=== PATIENT | female | born 1930 | race Caucasian/White ===

== ENCOUNTER 2017-09-24 12:22 | Emergency (ER) | payer MEDICARE, BC ==
[2017-09-24] MEDS ORDERED: SODIUM CHLORIDE 0.9% 1,000 ML IV STA (12:29)
[2017-09-24 12:32] VITALS: TEMP 97.6
[2017-09-24 12:58] LABS: Basophils # (A) 0.1 k/uL (0-0.2); Basophils % (A) 1 %; Eosinophils # (A) 0.4 k/uL (0-0.7); Eosinophils % (A) 4 %; HCT 31.9 % (34.0-46.0); HGB 10.3 gm/dL (11.4-16.0); Lymphocytes # (A) 1.1 k/uL (1.0-4.8); Lymphocytes % (A) 12 %; MCH 29.1 pg (25.0-35.0); MCHC 32.3 g/dL (31.0-37.0); Mean Platelet Volume 6.9; Monocytes # (A) 0.5 k/uL (0-1.0); Monocytes % (A) 6 %; Neutrophils # (A) 6.8 k/uL (1.3-7.7); Neutrophils % (A) 76 %; Platelet Count 327 k/uL (150-450); RBC 3.54 m/uL (3.80-5.40); RDW 14.1 % (11.5-15.5)
[2017-09-24 13:02] LABS: Calcium 8.6 mg/dL (8.4-10.2); Total Bilirubin 0.3 mg/dL (0.2-1.3); Total Protein 5.7 g/dL (6.3-8.2)
--- NOTE | 2017-09-24 13:04 | XR ---
EXAMINATION TYPE: XR chest 2V DATE OF EXAM: 09/24/2017 COMPARISON: Prior chest x-ray 11/17/2015 HISTORY: Difficulty breathing, cough TECHNIQUE: Frontal and lateral views of the chest are obtained. FINDINGS: Prominent lung volumes are compatible with underlying COPD. There is been interval increas e in density in the right upper lobe. Apical pleural thickening is again noted. There is no evident p neumothorax or pleural effusion. There is a spinal curvature. Cardiac mediastinal silhouette, pulmona ry vascularity and ingrid are not significantly changed. Bone mineralization is reduced. There are vasc ular calcifications noted. IMPRESSION: There may been interval increase in upper lobe scarring, difficult to exclude superimpos ed pneumonia. Consider pulmonary consult.
--- NOTE | 2017-09-24 13:09 | XR ---
Right RIBS HISTORY: Right rib pain 4 views of the right ribs There is a fracture of the 10th rib anteriorly on the right. Pleural parenchymal changes noted and de scribed in chest x-ray same date. There is a spinal curvature. There is low bone mineralization. IMPRESSION: Nondisplaced rib fracture.
[2017-09-24 13:11] LABS: Prothrombin Time 9.7 sec (9.0-12.0)
[2017-09-24 13:16] LABS: Creatine Kinase 88 U/L (30-135)
[2017-09-24 13:25] LABS: D-Dimer 0.78 mg/L FEU (<0.60)
[2017-09-24 13:26] LABS: Partial Thromboplastin Time 21.9 sec (22.0-30.0)
[2017-09-24 13:28] LABS: Creatine Kinase MB 1.2 ng/mL (0.0-2.4); Troponin I <0.012 ng/mL (0.000-0.034)
[2017-09-24] MEDS ORDERED: CARVEDILOL 12.5 MG TAB PO STA (14:28)
--- NOTE | 2017-09-24 14:50 | ED ---
General Adult HPI - General Chief complaint: Upper Respiratory Infection Stated complaint: Congestion Time Seen by Provider: 09/24/17 12:24 Source: patient Mode of arrival: EMS Limitations: no limitations - History of Present Illness Initial comments: 86 years O female comes in with the shortness of breath, she she said she had the shortness of breath for the last 2 weeks she was seen in the ER she also fell about 2 weeks ago and she complained about the right-sided chest wall pain she was seen at this Point now she is quite concerned about shortness of breath and cough she denies any new medications or any changes in his old medications - Related Data Home Medications Medication Instructions Recorded Confirmed Carvedilol 25 mg PO BID 12/18/13 09/24/17 Ezetimibe/Simvastatin [Vytorin 1 tab PO HS 12/18/13 09/24/17 10-20 mg Tablet] Isosorbide Mononitrate [Imdur] 30 mg PO DAILY 12/18/13 09/24/17 LORazepam [Ativan] 1 mg PO BID 12/18/13 09/24/17 Losartan/Hydrochlorothiazide 1 tab PO DAILY 12/18/13 09/24/17 [Losartan-Hctz 100-25 mg Tab] Omeprazole 40 mg PO DAILY 12/18/13 09/24/17 Aspirin EC [Ecotrin Low Dose] 81 mg PO DAILY 11/17/15 09/24/17 Multivitamin/Iron/Folic Acid 1 tab PO DAILY 11/17/15 09/24/17 [Centrum Complete Multivit Tab] Tolterodine Tartrate [Detrol LA] 4 mg PO DAILY 11/17/15 09/24/17 cloNIDine HCL [Catapres] 0.1 mg PO BID 11/17/15 09/24/17 Previous Rx's Medication Instructions Recorded Albuterol Inhaler [Ventolin Hfa 2 puff INHALATION RT-Q6H PRN #1 09/24/17 Inhaler] inhaler Levofloxacin [Levaquin] 500 mg PO DAILY #5 tab 09/24/17 predniSONE 20 mg PO BID #5 tab 09/24/17 Allergies Allergy/AdvReac Type Severity Reaction Status Date / Time codeine Allergy Nausea & Verified 09/24/17 12:35 Vomiting meperidine HCl [From Demerol] Allergy Nausea & Verified 09/24/17 12:35 Vomiting Milk Containing Products Allergy Rash/Hives Verified 09/24/17 12:35 [Dairy] morphine Allergy Nausea & Verified 09/24/17 12:35 Vomiting Review of Systems ROS Statement: Those systems with pertinent positive or pertinent negative responses have been documented in the HPI. ROS Other: All systems not noted in ROS Statement are negative. Past Medical History Past Medical History: Chest Pain / Angina, CVA/TIA, GERD/Reflux, Hyperlipidemia , Hypertension, Myocardial Infarction ([place]), Syncope Additional Past Medical History / Comment(s): Past syncopal episodes, TIAs, UTIs , DJD spin, chronic back pain, arthritis hands, diverticular disease. Last Myocardial Infarction Date:: 11/16/2010 History of Any Multi-Drug Resistant Organisms: None Reported Past Surgical History: Adenoidectomy, Appendectomy, Back Surgery, Cholecystectomy, Heart Catheterization, Hysterectomy, Tonsillectomy Additional Past Surgical History / Comment(s): cardiac caths in 2010 and 2013, back fusion/discectomy, colonoscopy, bilateral cataract removal with lens implants, Past Anesthesia/Blood Transfusion Reactions: Postoperative Nausea & Vomiting ( PONV) Past Psychological History: Anxiety Smoking Status: Former smoker Past Alcohol Use History: None Reported Past Drug Use History: None Reported - Past Family History Father Additional Family Medical History / Comment(s): Father at the age of 57yrs with "heart problems". Mother Additional Family Medical History / Comment(s): Mother had an enlarged heart. She at the age of 79yrs. General Exam Limitations: no limitations Course Vital Signs 09/24/17 09/24/17 09/24/17 12:26 13:07 14:26 Temperature 97.6 F Pulse Rate 66 61 Respiratory 18 16 18 Rate Blood Pressure 177/77 186/122 O2 Sat by Pulse 97 97 Oximetry 09/24/17 09/24/17 09/24/17 15:04 15:24 16:28 Temperature Pulse Rate 59 L 62 78 Respiratory 16 16 16 Rate Blood Pressure 166/72 166/72 172/74 O2 Sat by Pulse [address] chest changes pending at this point disposition be done as soon as we have and CT chest angiogram At 1610 CT angiogram still pending him a disposition be done as soon as I get the CT angiogram report 5 this EKG report was available 1650, he confirms a bronchitis rules out pulmonary embolism patient be gone home on now according 500 mg once daily for next 5, prednisone 40 mg once daily for next 5 days and albuterol inhaler - Reevaluation(s) Reevaluation #1: EKG is normal sinus ventricular rate is 66 [place] interval is 184 QRS duration is 82 QT/QTc is 4/423 review of this EKG does not reveal any ST elevation or ST depression 09/24/17 16:58 Medical Decision Making - Lab Data Result diagrams: 09/24/17 12:43 09/24/17 12:43 Lab Results 09/24/17 09/24/17 09/24/17 Range/Units 12:43 12:43 12:43 WBC 9.0 (3.8-10.6) k/uL RBC 3.54 L (3.80-5.40) m/uL Hgb 10.3 L (11.4-16.0) gm/dL Hct 31.9 L (34.0-46.0) % MCV 90.0 (80.0-100.0) fL MCH 29.1 (25.0-35.0) pg MCHC 32.3 (31.0-37.0) g/dL RDW 14.1 (11.5-15.5) % Plt Count 327 (150-450) k/uL Neutrophils % 76 % Lymphocytes % 12 % Monocytes % 6 % Eosinophils % 4 % Basophils % 1 % Neutrophils # 6.8 (1.3-7.7) k/uL Lymphocytes # 1.1 (1.0-4.8) k/uL Monocytes # 0.5 (0-1.0) k/uL Eosinophils # 0.4 (0-0.7) k/uL Basophils # 0.1 (0-0.2) k/uL PT (9.0-12.0) sec INR (<1.2) APTT (22.0-30.0) sec D-Dimer (<0.60) mg/L FEU Sodium 138 (137-145) mmol/L Potassium 4.0 (3.5-5.1) mmol/L Chloride 101 (98-107) mmol/L Carbon Dioxide 30 (22-30) mmol/L Anion Gap 7 mmol/L BUN 15 (7-17) mg/dL Creatinine 0.74 (0.52-1.04) mg/dL Est GFR (CKD-EPI)AfAm 87 (>60 ml/min/1.73 sqM) Est GFR (CKD-EPI)NonAf 75 (>60 ml/min/1.73 sqM) Glucose 89 (74-99) mg/dL Calcium 8.6 (8.4-10.2) mg/dL Total Bilirubin 0.3 (0.2-1.3) mg/dL AST 32 (14-36) U/L ALT 30 (9-52) U/L Alkaline Phosphatase 79 (38-126) U/L Total Creatine Kinase 88 (30-135) U/L CK-MB (CK-2) 1.2 (0.0-2.4) ng/mL CK-MB (CK-2) Rel Index 1.4 Troponin I <0.012 (0.000-0.034) ng/mL NT-Pro-B Natriuret Pep pg/mL Total Protein 5.7 L (6.3-8.2) g/dL Albumin 3.0 L (3.5-5.0) g/dL 09/24/17 09/24/17 Range/Units 12:43 12:43 WBC (3.8-10.6) k/uL RBC (3.80-5.40) m/uL Hgb (11.4-16.0) gm/dL Hct (34.0-46.0) % MCV (80.0-100.0) fL MCH (25.0-35.0) pg MCHC (31.0-37.0) g/dL RDW (11.5-15.5) % Plt Count (150-450) k/uL Neutrophils % % Lymphocytes % % Monocytes % % Eosinophils % % Basophils % % Neutrophils # (1.3-7.7) k/uL Lymphocytes # (1.0-4.8) k/uL Monocytes # (0-1.0) k/uL Eosinophils # (0-0.7) k/uL Basophils # (0-0.2) k/uL PT 9.7 (9.0-12.0) sec INR 1.0 (<1.2) APTT 21.9 L (22.0-30.0) sec D-Dimer 0.78 H (<0.60) mg/L FEU Sodium (137-145) mmol/L Potassium (3.5-5.1) mmol/L Chloride (98-107) mmol/L Carbon Dioxide (22-30) mmol/L Anion Gap mmol/L BUN (7-17) mg/dL Creatinine (0.52-1.04) mg/dL Est GFR (CKD-EPI)AfAm (>60 ml/min/1.73 sqM) Est GFR (CKD-EPI)NonAf (>60 ml/min/1.73 sqM) Glucose (74-99) mg/dL Calcium (8.4-10.2) mg/dL Total Bilirubin (0.2-1.3) mg/dL AST (14-36) U/L ALT (9-52) U/L Alkaline Phosphatase (38-126) U/L Total Creatine Kinase (30-135) U/L CK-MB (CK-2) (0.0-2.4) ng/mL CK-MB (CK-2) Rel Index Troponin I (0.000-0.034) ng/mL NT-Pro-B Natriuret Pep 496 pg/mL Total Protein (6.3-8.2) g/dL Albumin (3.5-5.0) g/dL Disposition Clinical Impression: Dyspnea, Bronchitis Disposition: HOME SELF-CARE Condition: Good Instructions: Chronic Bronchitis (ED) Prescriptions: Albuterol Inhaler [Ventolin Hfa Inhaler] 2 puff INHALATION RT-Q6H PRN #1 inhaler PRN Reason: sob Levofloxacin [Levaquin] 500 mg PO DAILY #5 tab predniSONE 20 mg PO BID #5 tab Is patient prescribed a controlled substance at d/c from ED?: No Referrals: Uri Chaudhary MD [Primary Care Provider] - 1-2 days
--- NOTE | 2017-09-24 16:13 | CT ---
EXAMINATION TYPE: CT angio chest DATE OF EXAM: 09/24/2017 COMPARISON: Chest x-ray 09/24/2017 HISTORY: Patient complains of cough. CT DLP: 197.2 mGycm Automated exposure control for dose reduction was used. CONTRAST: CTA scan of the thorax is performed with IV Contrast, patient injected with 100 mL of Isovue 370, pul monary embolism protocol. MIP images are created and reviewed. 3D reconstructed images are created on an independent workstation and reviewed. FINDINGS: LUNGS: The lungs are grossly clear, there is no concerning parenchymal mass or nodule identified. T here is no pleural effusion or pneumothorax seen. The tracheobronchial tree is patent, there are ext ensive areas of bronchial wall thickening, mucus plugging, tree-in-bud appearance within portions of the upper lobes. AORTA: No additional significant abnormality is seen. MEDIASTINUM: There is satisfactory enhancement of the pulmonary artery and its branches, there is no CT evidence for pulmonary embolism. There are no greater than 1 cm hilar or mediastinal lymph nodes. There are dense coronary artery calcifications. No pericardial effusion is seen. OTHER: There is a scoliosis within the spine. IMPRESSION: CORRELATE FOR BRONCHITIS, THERE IS MUCUS PLUGGING WHICH IS EXTENSIVE, DIFFICULT TO EXCLUDE AN EARLY P NEUMONIA. NO EVIDENT PULMONARY EMBOLISM. CORONARY ARTERY DISEASE.
[2017-09-24 16:31] VITALS: PULSE 78
[2017-09-24] MEDS ORDERED: predniSONE 20 MG TAB PO STA (16:59)
[2017-09-24] MEDS ORDERED: LEVOFLOXACIN 500 MG TAB PO STA (16:59)
[2017-09-24 17:28] VITALS: BP 164/72; RESP 18
== END 2017-09-24 17:25 | disposition home or self-care (01) ==
LOC: EC 12:22
DX: J40 Bronchitis, not specified as acute or chronic (principal); K21.9 Gastro-esophageal reflux disease without esophagitis; I10 Essential (primary) hypertension; I25.2 Old myocardial infarction; F41.9 Anxiety disorder, unspecified; Z95.818 Presence of other cardiac implants and grafts; Z86.73 Personal history of transient ischemic attack (TIA), and cerebral infarction without residual deficits; Z87.891 Personal history of nicotine dependence; Z79.82 Long term (current) use of aspirin; Z79.899 Other long term (current) drug therapy; Z88.5 Allergy status to narcotic agent; Z91.011 Allergy to milk products
CPT/HCPCS: 99285; 36415; 93005; 85379; 83880; 80053; 82550; 82553; 84484; 85025; 85610; 85730; 71100; 71046; 71275; J7512; Q9967

== ENCOUNTER 2017-10-27 09:06 | Emergency (ER) | payer MEDICARE, BC ==
--- NOTE | 2017-10-27 10:00 | ED ---
General Adult HPI - General Chief complaint: Abdominal Pain Stated complaint: Sob/pain around to the back/copd Time Seen by Provider: 10/27/17 09:44 Source: patient, RN notes reviewed Mode of arrival: ambulatory Limitations: no limitations - History of Present Illness Initial comments: Patient 86-year-old female presenting to the emergency room today with a chief complaint of right-sided rib pain. Patient does admit that she's had increased cough congestion. She states she had a cough congestion several months ago seemed to get better and now has increased once again. She does admit that she having pain since radiating around to the right side of her back. She does not that it's worse with certain movements. Currently rates it a 05/31. Denies any other complaints. Admits that she had a fall back in end of August on the side. Patient denies any recent fever, chills, shortness of breath, nausea or vomiting , numbness or tingling, dysuria or hematuria, constipation or diarrhea, headaches or visual changes, or any other complaints. - Related Data Home Medications Medication Instructions Recorded Confirmed Carvedilol 25 mg PO BID 12/18/13 10/27/17 Isosorbide Mononitrate [Imdur] 30 mg PO DAILY 12/18/13 10/27/17 LORazepam [Ativan] 1 mg PO BID 12/18/13 10/27/17 Omeprazole 40 mg PO DAILY 12/18/13 10/27/17 Aspirin EC [Ecotrin Low Dose] 81 mg PO DAILY 11/17/15 10/27/17 Multivitamin/Iron/Folic Acid 1 tab PO DAILY 11/17/15 10/27/17 [Centrum Complete Multivit Tab] Tolterodine Tartrate [Detrol LA] 4 mg PO DAILY 11/17/15 10/27/17 cloNIDine HCL [Catapres] 0.1 mg PO BID 11/17/15 10/27/17 Ezetimibe [Zetia] 10 mg PO DAILY 10/27/17 10/27/17 Simvastatin [Zocor] 20 mg PO HS 10/27/17 10/27/17 cloNIDine HCL [Catapres] 0.2 mg PO HS 10/27/17 10/27/17 cloNIDine HCL [Catapres] 0.5 mg PO DAILY 10/27/17 10/27/17 Previous Rx's Medication Instructions Recorded Levofloxacin [Levaquin] 500 mg PO DAILY 7 Days tab 10/27/17 Allergies Allergy/AdvReac Type Severity Reaction Status Date / Time codeine Allergy Nausea & Verified 10/27/17 10:00 Vomiting meperidine HCl [From Demerol] Allergy Nausea & Verified 10/27/17 10:00 Vomiting Milk Containing Products Allergy Rash/Hives Verified 10/27/17 10:00 [Dairy] morphine Allergy Nausea & Verified 10/27/17 10:00 Vomiting Review of Systems ROS Statement: Those systems with pertinent positive or pertinent negative responses have been documented in the HPI. ROS Other: All systems not noted in ROS Statement are negative. Past Medical History Past Medical History: Chest Pain / Angina, CVA/TIA, GERD/Reflux, Hyperlipidemia , Hypertension, Myocardial Infarction ([place]), Syncope Additional Past Medical History / Comment(s): Past syncopal episodes, TIAs, UTIs , DJD spin, chronic back pain, arthritis hands, diverticular disease. Last Myocardial Infarction Date:: 11/16/2010 History of Any Multi-Drug Resistant Organisms: None Reported Past Surgical History: Adenoidectomy, Appendectomy, Back Surgery, Cholecystectomy, Heart Catheterization, Hysterectomy, Tonsillectomy Additional Past Surgical History / Comment(s): cardiac caths in 2010 and 2013, back fusion/discectomy, colonoscopy, bilateral cataract removal with lens implants, Past Anesthesia/Blood Transfusion Reactions: Postoperative Nausea & Vomiting ( PONV) Past Psychological History: Anxiety Smoking Status: Former smoker Past Alcohol Use History: None Reported Past Drug Use History: None Reported - Past Family History Father Additional Family Medical History / Comment(s): Father at the age of 57yrs with "heart problems". Mother Additional Family Medical History / Comment(s): Mother had an enlarged heart. She at the age of 79yrs. General Exam - General Exam Comments Initial Comments: General: The patient is awake and alert, in no distress, and does not appear acutely ill. Eye: Pupils are equal, round and reactive to light, extra-ocular movements are intact. No nystagmus. There is normal conjunctiva bilaterally. No signs of icterus. Ears, nose, mouth and throat: There are moist mucous membranes and no oral lesions. Neck: The neck is supple, there is no tenderness or JVD. Cardiovascular: There is a regular rate and rhythm. No murmur, rub or gallop is appreciated. Respiratory: Lungs are clear to auscultation, respirations are non-labored, breath sounds are equal. No wheezes, stridor, rales, or rhonchi. Gastrointestinal: Soft, non-distended, non-tender abdomen without masses or organomegaly noted. There is no rebound or guarding present. No CVA tenderness. Musculoskeletal: Normal ROM. Tender palpation over the right lateral ribs. Strength 5/5. Sensation intact. Pulses equal bilaterally 2+. Neurological: A&O x 3. CN II-XII intact, There are no obvious motor or sensory deficits. Coordination appears grossly intact. Speech is normal. Skin: Skin is warm and dry and no rashes or lesions are noted. Psychiatric: Cooperative, appropriate mood & affect, normal judgment. Limitations: no limitations Course Vital Signs 10/27/17 10/27/17 09:12 11:21 Temperature 98.0 F 97.7 F Pulse Rate 77 66 Respiratory 18 18 Rate Blood Pressure 160/66 182/79 O2 Sat by Pulse 96 97 Oximetry Medical Decision Making - Medical Decision Making Patient's x-ray does show a redemonstration of the 10th right rib fracture. No new displaced fracture seen. There is COPD. There is increasing focal density of the right midlung which is consistent with a developing pneumonia. Patient will be started on antibiotic. Advised follow-up with her family physician. Patient states understanding and is in agreement. Patient's labs been reviewed unremarkable. EKG shows no acute abnormality. Patient's pain reproduced on palpation to the right lateral ribs and with movement. Patient is advised bridge herself. Is returning if symptoms increase worsen. - Lab Data Result diagrams: 10/27/17 09:35 10/27/17 09:35 Lab Results 10/27/17 10/27/17 10/27/17 Range/Units 09:35 09:35 09:35 WBC 7.5 (3.8-10.6) k/uL RBC 3.76 L (3.80-5.40) m/uL Hgb 10.7 L (11.4-16.0) gm/dL Hct 33.8 L (34.0-46.0) % MCV 90.0 (80.0-100.0) fL MCH 28.5 (25.0-35.0) pg MCHC 31.7 (31.0-37.0) g/dL RDW 13.7 (11.5-15.5) % Plt Count 251 (150-450) k/uL Neutrophils % 78 % Lymphocytes % 10 % Monocytes % 7 % Eosinophils % 3 % Basophils % 1 % Neutrophils # 5.8 (1.3-7.7) k/uL Lymphocytes # 0.8 L (1.0-4.8) k/uL Monocytes # 0.5 (0-1.0) k/uL Eosinophils # 0.2 (0-0.7) k/uL Basophils # 0.0 (0-0.2) k/uL PT (9.0-12.0) sec INR (<1.2) APTT (22.0-30.0) sec Sodium 137 (137-145) mmol/L Potassium 3.9 (3.5-5.1) mmol/L Chloride 104 (98-107) mmol/L Carbon Dioxide 26 (22-30) mmol/L Anion Gap 7 mmol/L BUN 14 (7-17) mg/dL Creatinine 0.72 (0.52-1.04) mg/dL Est GFR (CKD-EPI)AfAm 90 (>60 ml/min/1.73 sqM) Est GFR (CKD-EPI)NonAf 78 (>60 ml/min/1.73 sqM) Glucose 141 H (74-99) mg/dL Calcium 8.9 (8.4-10.2) mg/dL Total Bilirubin 0.2 (0.2-1.3) mg/dL AST 23 (14-36) U/L ALT 28 (9-52) U/L Alkaline Phosphatase 88 (38-126) U/L Total Creatine Kinase 42 (30-135) U/L CK-MB (CK-2) 0.5 (0.0-2.4) ng/mL CK-MB (CK-2) Rel Index 1.2 Troponin I <0.012 (0.000-0.034) ng/mL Total Protein 5.8 L (6.3-8.2) g/dL Albumin 3.1 L (3.5-5.0) g/dL Urine Color Urine Appearance (Clear) Urine pH (5.0-8.0) Ur Specific Douglas (1.001-1.035) Urine Protein (Negative) Urine Glucose (UA) (Negative) Urine Ketones (Negative) Urine Blood (Negative) Urine Nitrite (Negative) Urine Bilirubin (Negative) Urine Urobilinogen (<2.0) mg/dL Ur Leukocyte Esterase (Negative) Urine RBC (0-5) /hpf Urine WBC (0-5) /hpf Ur Squamous Epith Cells (0-4) /hpf Urine Bacteria (None) /hpf Hyaline Casts (0-2) /lpf Urine Mucus (None) /hpf 10/27/17 10/27/17 Range/Units 09:35 10:10 WBC (3.8-10.6) k/uL RBC (3.80-5.40) m/uL Hgb (11.4-16.0) gm/dL Hct (34.0-46.0) % MCV (80.0-100.0) fL MCH (25.0-35.0) pg MCHC (31.0-37.0) g/dL RDW (11.5-15.5) % Plt Count (150-450) k/uL Neutrophils % % Lymphocytes % % Monocytes % % Eosinophils % % Basophils % % Neutrophils # (1.3-7.7) k/uL Lymphocytes # (1.0-4.8) k/uL Monocytes # (0-1.0) k/uL Eosinophils # (0-0.7) k/uL Basophils # (0-0.2) k/uL PT 9.4 (9.0-12.0) sec INR 0.9 (<1.2) APTT 22.9 (22.0-30.0) sec Sodium (137-145) mmol/L Potassium (3.5-5.1) mmol/L Chloride (98-107) mmol/L Carbon Dioxide (22-30) mmol/L Anion Gap mmol/L BUN (7-17) mg/dL Creatinine (0.52-1.04) mg/dL Est GFR (CKD-EPI)AfAm (>60 ml/min/1.73 sqM) Est GFR (CKD-EPI)NonAf (>60 ml/min/1.73 sqM) Glucose (74-99) mg/dL Calcium (8.4-10.2) mg/dL Total Bilirubin (0.2-1.3) mg/dL AST (14-36) U/L ALT (9-52) U/L Alkaline Phosphatase (38-126) U/L Total Creatine Kinase (30-135) U/L CK-MB (CK-2) (0.0-2.4) ng/mL CK-MB (CK-2) Rel Index Troponin I (0.000-0.034) ng/mL Total Protein (6.3-8.2) g/dL Albumin (3.5-5.0) g/dL Urine Color Yellow Urine Appearance Clear (Clear) Urine pH 7.0 (5.0-8.0) Ur Specific [place] 1.010 (1.001-1.035) Urine Protein 1+ H (Negative) Urine Glucose (UA) Negative (Negative) Urine Ketones Negative (Negative) Urine Blood Negative (Negative) Urine Nitrite Negative (Negative) Urine Bilirubin Negative (Negative) Urine Urobilinogen <2.0 (<2.0) mg/dL Ur Leukocyte Esterase Large H (Negative) Urine RBC 2 (0-5) /hpf Urine WBC 22 H (0-5) /hpf Ur Squamous Epith Cells 1 (0-4) /hpf Urine Bacteria Rare H (None) /hpf Hyaline Casts 8 H (0-2) /lpf Urine Mucus Rare H (None) /hpf Disposition Clinical Impression: Community acquired pneumonia, Rib fracture Disposition: HOME SELF-CARE Condition: Good Instructions: Community Acquired Pneumonia (ED) Additional Instructions: Please use medication as discussed. Please follow-up with family doctor in the next 2 days. Please return to emergency room if the symptoms increase or worsen or for any other concerns. Prescriptions: Levofloxacin [Levaquin] 500 mg PO DAILY 7 Days tab Is patient prescribed a controlled substance at d/c from ED?: No Referrals: Uri Chaudhary MD [Primary Care Provider] - 1-2 days Time of Disposition: 11:46
[2017-10-27 10:14] LABS: Basophils % (A) 1 %; Eosinophils # (A) 0.2 k/uL (0-0.7); Eosinophils % (A) 3 %; HCT 33.8 % (34.0-46.0); HGB 10.7 gm/dL (11.4-16.0); Lymphocytes # (A) 0.8 k/uL (1.0-4.8); Lymphocytes % (A) 10 %; MCH 28.5 pg (25.0-35.0); MCHC 31.7 g/dL (31.0-37.0); Mean Platelet Volume 7.1; Monocytes # (A) 0.5 k/uL (0-1.0); Monocytes % (A) 7 %; Neutrophils # (A) 5.8 k/uL (1.3-7.7); Neutrophils % (A) 78 %; Platelet Count 251 k/uL (150-450); RBC 3.76 m/uL (3.80-5.40); RDW 13.7 % (11.5-15.5); WBC 7.5 k/uL (3.8-10.6)
[2017-10-27 10:24] LABS: Albumin 3.1 g/dL (3.5-5.0); Calcium 8.9 mg/dL (8.4-10.2); Potassium 3.9 mmol/L (3.5-5.1); Total Bilirubin 0.2 mg/dL (0.2-1.3); Total Protein 5.8 g/dL (6.3-8.2)
[2017-10-27 10:26] LABS: INR 0.9 (<1.2); Partial Thromboplastin Time 22.9 sec (22.0-30.0); Prothrombin Time 9.4 sec (9.0-12.0)
--- NOTE | 2017-10-27 10:36 | XR ---
EXAMINATION TYPE: XR chest 2V, XR ribs 4 views RT DATE OF EXAM: 10/27/2017 COMPARISON: 09/24/2017 HISTORY: 86-year-old female right-sided chest pain from fall, cough TECHNIQUE: PA and lateral views FINDINGS: Heart upper limits of normal in size. Atherosclerotic arch calcifications. Biapical pleural parenchym al scarring and hyperinflation. Focal density right midlung increased from recent prior. No pleural e ffusion. Mildly displaced anterior right 10th rib fracture redemonstrated. No new displaced rib fracture seen. IMPRESSION: 1. COPD. Increasing focal density at the right midlung could represent developing pneumonia or pulmon augusto contusion. Follow-up after treatment to ensure clearance. 2. Redemonstrated mildly displaced anterior right 10th rib fracture. No new displaced rib fracture se en.
[2017-10-27 10:39] LABS: Appearance,Urine Clear (Clear); Bacteria,Urine Rare /hpf; Bilirubin,Urine Negative (Negative); Blood,Urine Negative (Negative); Color,Urine Yellow; Glucose,Urine (UA) Negative (Negative); Hyaline Casts,Urine 8 /lpf (0-2); Ketones,Urine Negative (Negative); Leukocyte Esterase,Urine Large (Negative); Mucus,Urine Rare /hpf; Nitrite,Urine Negative (Negative); Protein,Urine 1+ (Negative); RBC,Urine 2 /hpf (0-5); Squamous Epithelial Cell,Urine 1 /hpf (0-4); Urobilinogen,Urine <2.0 mg/dL (<2.0); WBC,Urine 22 /hpf (0-5)
[2017-10-27 10:39] LABS: Creatine Kinase 42 U/L (30-135)
[2017-10-27 10:53] LABS: Creatine Kinase MB 0.5 ng/mL (0.0-2.4); Troponin I <0.012 ng/mL (0.000-0.034)
[2017-10-27 11:56] VITALS: BP 187/80; PULSE 65; RESP 16; TEMP 97
== END 2017-10-27 12:07 | disposition home or self-care (01) ==
LOC: EC 09:06
DX: S22.31XA Fracture of one rib, right side, initial encounter for closed fracture (principal); J18.9 Pneumonia, unspecified organism; J44.9 Chronic obstructive pulmonary disease, unspecified; K21.9 Gastro-esophageal reflux disease without esophagitis; E78.5 Hyperlipidemia, unspecified; I10 Essential (primary) hypertension; I25.2 Old myocardial infarction; Z86.73 Personal history of transient ischemic attack (TIA), and cerebral infarction without residual deficits; Z87.891 Personal history of nicotine dependence; Z79.82 Long term (current) use of aspirin; Z79.899 Other long term (current) drug therapy; Z88.5 Allergy status to narcotic agent; Z91.011 Allergy to milk products; Z95.818 Presence of other cardiac implants and grafts; W19.XXXA Unspecified fall, initial encounter
CPT/HCPCS: 36415; 71046; 80053; 81001; 82550; 82553; 84484; 85025; 85610; 85730; 93005; 99284

== ENCOUNTER 2017-11-17 22:48 | Emergency (ER) | payer MEDICARE, BC ==
--- NOTE | 2017-11-17 23:06 | ED ---
General Adult HPI - General Chief complaint: Shortness of Breath Stated complaint: SOB Time Seen by Provider: 11/17/17 23:06 Source: patient Mode of arrival: ambulatory Limitations: no limitations - History of Present Illness Initial comments: Patient is an 86-year-old female who presents to the emergency department via private vehicle today for evaluation of sudden onset of shortness of breath. Patient reports that she was in her usual state of health throughout the day today this evening around 10 PM she took her usual home medications and said out of bed. Patient reports that upon sitting in bed she suddenly became short of breath and felt as though she could not catch her breath. She then came to the ER for further evaluation. Patient does report that approximately 3 or 4 weeks ago she was admitted the hospital for pneumonia, she is a former smoker and has been told that she has COPD. Patient states that for a while she was using a nebulizer that belonged to her daughter however she doesn't have it right now. Patient reports she does have a rescue inhaler but did not use it prior to coming to the ER. Patient denies any chest pain, palpitations, lightheadedness or diaphoresis. She reports feeling as though she can't catch her breath. Upon my initial evaluation the patient states that at this point she is having a panic attack and needs oral Ativan which is what she takes at home. - Related Data Home Medications Medication Instructions Recorded Confirmed Carvedilol 25 mg PO BID 12/18/13 11/17/17 Isosorbide Mononitrate [Imdur] 30 mg PO DAILY 12/18/13 11/17/17 LORazepam [Ativan] 1 mg PO BID 12/18/13 11/17/17 Omeprazole 40 mg PO AC-BRKFST 12/18/13 11/17/17 Aspirin EC [Ecotrin Low Dose] 81 mg PO DAILY 11/17/15 11/17/17 Multivitamin/Iron/Folic Acid 1 tab PO DAILY 11/17/15 11/17/17 [Centrum Complete Multivit Tab] Tolterodine Tartrate [Detrol LA] 4 mg PO DAILY 11/17/15 11/17/17 cloNIDine HCL [Catapres] 0.1 mg PO DAILY 11/17/15 11/17/17 cloNIDine HCL [Catapres] 0.2 mg PO HS 10/27/17 11/17/17 Albuterol Inhaler [Ventolin Hfa 1 - 2 puff INHALATION RT-Q6H PRN 11/17/17 Inhaler] Ezetimibe/Simvastatin [Vytorin 1 tab PO HS 11/17/17 11/17/17 10-20 mg Tablet] Allergies Allergy/AdvReac Type Severity Reaction Status Date / Time acetaminophen [From Percocet] Allergy Unknown Verified 11/17/17 23:06 codeine Allergy Nausea & Verified 11/17/17 23:06 Vomiting meperidine HCl [From Demerol] Allergy Nausea & Verified 11/17/17 23:06 Vomiting Milk Containing Products Allergy Rash/Hives Verified 11/17/17 23:06 [Dairy] morphine Allergy Nausea & Verified 11/17/17 23:06 Vomiting oxycodone [From Percocet] Allergy Unknown Verified 11/17/17 23:06 Review of Systems ROS Statement: Those systems with pertinent positive or pertinent negative responses have been documented in the HPI. ROS Other: All systems not noted in ROS Statement are negative. Past Medical History Past Medical History: Chest Pain / Angina, CVA/TIA, GERD/Reflux, Hyperlipidemia , Hypertension, Myocardial Infarction ([place]), Syncope Additional Past Medical History / Comment(s): Past syncopal episodes, TIAs, UTIs , DJD spin, chronic back pain, arthritis hands, diverticular disease. Last Myocardial Infarction Date:: 11/16/2010 History of Any Multi-Drug Resistant Organisms: None Reported Past Surgical History: Adenoidectomy, Appendectomy, Back Surgery, Cholecystectomy, Heart Catheterization, Hysterectomy, Tonsillectomy Additional Past Surgical History / Comment(s): cardiac caths in 2010 and 2013, back fusion/discectomy, colonoscopy, bilateral cataract removal with lens implants, Past Anesthesia/Blood Transfusion Reactions: Postoperative Nausea & Vomiting ( PONV) Past Psychological History: Anxiety Smoking Status: Former smoker Past Alcohol Use History: None Reported Past Drug Use History: None Reported - Past Family History Father Additional Family Medical History / Comment(s): Father at the age of 57yrs with "heart problems". Mother Additional Family Medical History / Comment(s): Mother had an enlarged heart. She at the age of 79yrs. General Exam - General Exam Comments Initial Comments: GENERAL: Patient is well-developed and well-nourished. Patient is nontoxic and well- hydrated and is in mild distress. HENT: Normocephalic, Atraumatic. Neck is soft and supple. No significant lymphadenopathy is noted. Oropharynx is clear. Moist mucous membranes. Neck has full range of motion without eliciting any pain. EYES: The sclera were anicteric and conjunctiva were pink and moist. Extraocular movements were intact and pupils were equal round and reactive to light. Eyelids were unremarkable. PULMONARY: Tachypnea with crackles at bases CARDIOVASCULAR: There is a regular rate and rhythm without any murmurs gallops or rubs. Bilateral radial DP and PT pulses were strong and equal ABDOMEN: Soft and nontender with normal bowel sounds. SKIN: Skin is clear with no lesions or rashes and otherwise unremarkable. NEUROLOGIC: Patient is alert and oriented x3. Cranial nerves II through XII are grossly intact. Motor and sensory are also intact. Normal speech, volume and content. Symmetrical smile. MUSCULOSKELETAL: Normal extremities with adequate strength and full range of motion. No lower extremity swelling or edema. No calf tenderness. LYMPHATICS: No significant lymphadenopathy is noted PSYCHIATRIC: Normal psychiatric evaluation. Limitations: no limitations Limitations: no limitations Course Vital Signs 11/17/17 11/18/17 22:50 00:57 Temperature 98.2 F 98.0 F Pulse Rate 73 83 Respiratory 22 16 Rate Blood Pressure 219/97 185/74 O2 Sat by Pulse 98 93 L Oximetry EKG Findings - EKG Comments: EKG Findings:: EKG obtained at 2256, rate is 72, rhythm is sinus, normal axis, normal intervals, UT 184, QRS 96, QTC [address] elevations or depressions. When compared to previous there is no significant changes Medical Decision Making - Medical Decision Making The patient was seen and evaluated, history is obtained from the patient and at bedside Upon my initial evaluation patient is requesting oral Ativan, she does appear quite anxious and has a history of anxiety for which she takes when necessary benzos at home is stating that he is very tired and would like to leave Labs and imaging were ordered Ativan ordered Labs and Xray with no acute findings EKG unchanged from previous Patient re-evaluated, reports feeling resolved after PO ativan, eager for discharge home Patient was seen by PCP earlier today and has close follow up All questions pertaining to care were answered to the best of my ability, at this time the patient is resting comfortably in no acute distress, she is eager for discharge home. Patient discharged home in stable condition, return parameters were discussed. - Lab Data Result diagrams: 11/17/17 22:59 11/17/17 22:59 Lab Results 11/17/17 11/17/17 11/17/17 Range/Units 22:59 22:59 22:59 WBC 6.5 (3.8-10.6) k/uL RBC 3.60 L (3.80-5.40) m/uL Hgb 10.4 L (11.4-16.0) gm/dL Hct 33.3 L (34.0-46.0) % MCV 92.6 (80.0-100.0) fL MCH 29.0 (25.0-35.0) pg MCHC 31.3 (31.0-37.0) g/dL RDW 14.9 (11.5-15.5) % Plt Count 232 (150-450) k/uL Neutrophils % 63 % Lymphocytes % 22 % Monocytes % 9 % Eosinophils % 6 % Basophils % 0 % Neutrophils # 4.1 (1.3-7.7) k/uL Lymphocytes # 1.4 (1.0-4.8) k/uL Monocytes # 0.6 (0-1.0) k/uL Eosinophils # 0.4 (0-0.7) k/uL Basophils # 0.0 (0-0.2) k/uL PT (9.0-12.0) sec INR (<1.2) APTT (22.0-30.0) sec Sodium 137 (137-145) mmol/L Potassium 4.0 (3.5-5.1) mmol/L Chloride 102 (98-107) mmol/L Carbon Dioxide 25 (22-30) mmol/L Anion Gap 10 mmol/L BUN 16 (7-17) mg/dL Creatinine 0.70 (0.52-1.04) mg/dL Est GFR (CKD-EPI)AfAm >90 (>60 ml/min/1.73 sqM) Est GFR (CKD-EPI)NonAf 80 (>60 ml/min/1.73 sqM) Glucose 108 H (74-99) mg/dL Calcium 9.1 (8.4-10.2) mg/dL Total Bilirubin 0.2 (0.2-1.3) mg/dL AST 41 H (14-36) U/L ALT 48 (9-52) U/L Alkaline Phosphatase 77 (38-126) U/L Total Creatine Kinase 59 (30-135) U/L CK-MB (CK-2) 0.4 (0.0-2.4) ng/mL CK-MB (CK-2) Rel Index 0.7 Troponin I <0.012 (0.000-0.034) ng/mL Total Protein 6.2 L (6.3-8.2) g/dL Albumin 3.5 (3.5-5.0) g/dL 11/17/17 Range/Units 22:59 WBC (3.8-10.6) k/uL RBC (3.80-5.40) m/uL Hgb (11.4-16.0) gm/dL Hct (34.0-46.0) % MCV (80.0-100.0) fL MCH (25.0-35.0) pg MCHC (31.0-37.0) g/dL RDW (11.5-15.5) % Plt Count (150-450) k/uL Neutrophils % % Lymphocytes % % Monocytes % % Eosinophils % % Basophils % % Neutrophils # (1.3-7.7) k/uL Lymphocytes # (1.0-4.8) k/uL Monocytes # (0-1.0) k/uL Eosinophils # (0-0.7) k/uL Basophils # (0-0.2) k/uL PT 9.9 (9.0-12.0) sec INR 1.0 (<1.2) APTT 22.4 (22.0-30.0) sec Sodium (137-145) mmol/L Potassium (3.5-5.1) mmol/L Chloride (98-107) mmol/L Carbon Dioxide (22-30) mmol/L Anion Gap mmol/L BUN (7-17) mg/dL Creatinine (0.52-1.04) mg/dL Est GFR (CKD-EPI)AfAm (>60 ml/min/1.73 sqM) Est GFR (CKD-EPI)NonAf (>60 ml/min/1.73 sqM) Glucose (74-99) mg/dL Calcium (8.4-10.2) mg/dL Total Bilirubin (0.2-1.3) mg/dL AST (14-36) U/L ALT (9-52) U/L Alkaline Phosphatase (38-126) U/L Total Creatine Kinase (30-135) U/L CK-MB (CK-2) (0.0-2.4) ng/mL CK-MB (CK-2) Rel Index Troponin I (0.000-0.034) ng/mL Total Protein (6.3-8.2) g/dL Albumin (3.5-5.0) g/dL Disposition Clinical Impression: Shortness of breath Disposition: HOME SELF-CARE Condition: Good Instructions: Acute Bronchitis (ED) Is patient prescribed a controlled substance at d/c from ED?: No Referrals: Uri Chaudhary MD [Primary Care Provider] - 1-2 days Time of Disposition: 01:30
[2017-11-17] MEDS ORDERED: LORazepam 1 MG TAB PO STA (23:46)
--- NOTE | 2017-11-18 00:10 | XR ---
EXAMINATION TYPE: XR chest 2V DATE OF EXAM: 11/18/2017 COMPARISON: 10/27/2017 HISTORY: Difficulty breathing TECHNIQUE: Frontal and lateral views of the chest are obtained. FINDINGS: There is coarse interstitial density in the upper lobes and more on the right side. There is no pleural effusion. There is no heart failure. Heart size is normal. Thoracic aorta is atheromato us. IMPRESSION: Reticular nodular upper lobe pulmonary infiltrates appear the same or improved compared to last exam and consistent with fibrosis. No new pulmonary density. No heart failure.
[2017-11-18 00:28] LABS: ALT 48 U/L (9-52); AST 41 U/L (14-36); Albumin 3.5 g/dL (3.5-5.0); Alkaline Phosphatase 77 U/L (38-126); Anion Gap 10 mmol/L; Blood Urea Nitrogen 16 mg/dL (7-17); Calcium 9.1 mg/dL (8.4-10.2); Carbon Dioxide 25 mmol/L (22-30); Chloride 102 mmol/L (98-107); Glucose 108 mg/dL (74-99); Sodium 137 mmol/L (137-145); Total Bilirubin 0.2 mg/dL (0.2-1.3); Total Protein 6.2 g/dL (6.3-8.2)
[2017-11-18 00:35] LABS: Creatine Kinase 59 U/L (30-135)
[2017-11-18 00:49] LABS: Basophils % (A) 0 %; Creatine Kinase MB 0.4 ng/mL (0.0-2.4); Eosinophils # (A) 0.4 k/uL (0-0.7); Eosinophils % (A) 6 %; HCT 33.3 % (34.0-46.0); HGB 10.4 gm/dL (11.4-16.0); Lymphocytes # (A) 1.4 k/uL (1.0-4.8); Lymphocytes % (A) 22 %; MCHC 31.3 g/dL (31.0-37.0); MCV 92.6 fL (80.0-100.0); Mean Platelet Volume 7.4; Monocytes # (A) 0.6 k/uL (0-1.0); Monocytes % (A) 9 %; Neutrophils # (A) 4.1 k/uL (1.3-7.7); Neutrophils % (A) 63 %; Platelet Count 232 k/uL (150-450); RDW 14.9 % (11.5-15.5); Troponin I <0.012 ng/mL (0.000-0.034); WBC 6.5 k/uL (3.8-10.6)
[2017-11-18 00:53] LABS: Partial Thromboplastin Time 22.4 sec (22.0-30.0); Prothrombin Time 9.9 sec (9.0-12.0)
[2017-11-18 00:59] VITALS: BP 185/74; PULSE 83; RESP 16; TEMP 98
== END 2017-11-18 01:47 | disposition home or self-care (01) ==
LOC: EC 22:48
DX: R06.02 Shortness of breath (principal); F41.0 Panic disorder [episodic paroxysmal anxiety]; K21.9 Gastro-esophageal reflux disease without esophagitis; E78.5 Hyperlipidemia, unspecified; I10 Essential (primary) hypertension; I25.2 Old myocardial infarction; F41.9 Anxiety disorder, unspecified; Z86.73 Personal history of transient ischemic attack (TIA), and cerebral infarction without residual deficits; Z87.891 Personal history of nicotine dependence; Z79.82 Long term (current) use of aspirin; Z79.899 Other long term (current) drug therapy; Z88.5 Allergy status to narcotic agent; Z88.6 Allergy status to analgesic agent; Z91.011 Allergy to milk products
CPT/HCPCS: 36415; 71046; 80053; 82550; 82553; 84484; 85025; 85610; 85730; 93005; 99285

== ENCOUNTER 2018-07-16 10:30 | Emergency (ER) | payer MEDICARE, BC ==
[2018-07-16] MEDS ORDERED: SODIUM CHLORIDE 0.9% 1,000 ML IV STA (11:28)
[2018-07-16 12:09] LABS: Basophils # (A) 0.1 k/uL (0-0.2); Basophils % (A) 1 %; Eosinophils # (A) 0.4 k/uL (0-0.7); Eosinophils % (A) 4 %; HCT 36.4 % (34.0-46.0); HGB 11.7 gm/dL (11.4-16.0); Lymphocytes # (A) 1.2 k/uL (1.0-4.8); Lymphocytes % (A) 15 %; MCH 30.4 pg (25.0-35.0); MCHC 32.3 g/dL (31.0-37.0); MCV 94.2 fL (80.0-100.0); Mean Platelet Volume 7.5; Monocytes # (A) 0.4 k/uL (0-1.0); Monocytes % (A) 5 %; Neutrophils # (A) 5.8 k/uL (1.3-7.7); Neutrophils % (A) 73 %; Platelet Count 233 k/uL (150-450); RBC 3.86 m/uL (3.80-5.40); RDW 14.1 % (11.5-15.5); WBC 7.9 k/uL (3.8-10.6)
[2018-07-16 12:21] LABS: Calcium 9.2 mg/dL (8.4-10.2); Magnesium 1.8 mg/dL (1.6-2.3); Phosphorus 3.5 mg/dL (2.5-4.5); Potassium 3.6 mmol/L (3.5-5.1); Total Bilirubin 0.4 mg/dL (0.2-1.3); Total Protein 6.9 g/dL (6.3-8.2)
[2018-07-16] MEDS ORDERED: hydrALAZINE HCL 20 MG/ML 1 ML VIAL IVP STA (12:25)
[2018-07-16] MEDS ORDERED: LABETALOL SYRINGE 5 MG/ML IVP STA (12:27)
[2018-07-16 12:52] LABS: Appearance,Urine Clear (Clear); Bilirubin,Urine Negative (Negative); Blood,Urine Negative (Negative); Color,Urine Yellow; Glucose,Urine (UA) Negative (Negative); Ketones,Urine Negative (Negative); Leukocyte Esterase,Urine Trace (Negative); Mucus,Urine Rare /hpf; Nitrite,Urine Negative (Negative); PH, Urine 6.5 (5.0-8.0); Protein,Urine 2+ (Negative); Specific Gravity,Urine 1.009 (1.001-1.035); Urobilinogen,Urine <2.0 mg/dL (<2.0); WBC,Urine 4 /hpf (0-5)
--- NOTE | 2018-07-16 12:53 | ED ---
Recheck HPI - General Chief Complaint: Recheck/Abnormal Lab/Rx Stated Complaint: high blood pressure Time Seen by Provider: 07/16/18 11:25 Source: patient, RN notes reviewed, old records reviewed Mode of arrival: ambulatory Limitations: no limitations - History of Present Illness Initial Comments: This is a 7-year-old female the ER for evaluation patient presents today for evaluation of high blood pressure and family states maybe altered mental status, concern for helping dementia. Patient seen an outpatient basis and prescribed medication medication seen both by neurologist and psychiatrist. Both as well as her family doctor. Patient herself has no complaints currently aside from elevated blood pressure. No recent change in blood pressure medication. Patient denies any chest pain shortness breath or abdominal pain MD Complaint: other (Abnormal blood pressure) -: unknown Returns Today for: other (Patient didn't blood pressure found to be abnormal) Symptoms Since Prior Visit: no new symptoms Associated Symptoms: none - Related Data Home Medications Medication Instructions Recorded Confirmed Carvedilol 25 mg PO BID 12/18/13 07/16/18 Isosorbide Mononitrate [Imdur] 30 mg PO DAILY 12/18/13 07/16/18 LORazepam [Ativan] 1 mg PO BID 12/18/13 07/16/18 Multivitamin/Iron/Folic Acid 1 tab PO DAILY 11/17/15 07/16/18 [Centrum Complete Multivit Tab] Tolterodine Tartrate [Detrol LA] 4 mg PO DAILY 11/17/15 07/16/18 cloNIDine HCL [Catapres] 0.1 mg PO AC-BID 11/17/15 07/16/18 cloNIDine HCL [Catapres] 0.2 mg PO HS 10/27/17 07/16/18 Ezetimibe/Simvastatin [Vytorin 1 tab PO HS 11/17/17 07/16/18 10-20 mg Tablet] Cholecalciferol [Vitamin D3] 1,000 unit PO DAILY 07/16/18 07/16/18 Omeprazole [PriLOSEC] 20 mg PO DAILY 07/16/18 07/16/18 Allergies Allergy/AdvReac Type Severity Reaction Status Date / Time Milk Containing Products Allergy Rash/Hives Verified 07/16/18 11:18 [Dairy] oxycodone [From Percocet] Allergy Unknown Verified 07/16/18 11:18 codeine AdvReac Nausea & Verified 07/16/18 11:18 Vomiting meperidine HCl [From Demerol] AdvReac Nausea & Verified 07/16/18 11:18 Vomiting morphine AdvReac Nausea & Verified 07/16/18 11:18 Vomiting Review of Systems ROS Statement: Those systems with pertinent positive or pertinent negative responses have been documented in the HPI. ROS Other: All systems not noted in ROS Statement are negative. Past Medical History Past Medical History: Chest Pain / Angina, CVA/TIA, GERD/Reflux, Hyperlipidemia, Hypertension, Myocardial Infarction ([place]), Syncope Additional Past Medical History / Comment(s): Past syncopal episodes, TIAs, UTIs, DJD spin, chronic back pain, arthritis hands, diverticular disease. Last Myocardial Infarction Date:: 11/16/2010 History of Any Multi-Drug Resistant Organisms: None Reported Past Surgical History: Adenoidectomy, Appendectomy, Back Surgery, Cholecystectomy, Heart Catheterization, Hysterectomy, Tonsillectomy Additional Past Surgical History / Comment(s): cardiac caths in 2010 and 2013, back fusion/discectomy, colonoscopy, bilateral cataract removal with lens implants, Past Anesthesia/Blood Transfusion Reactions: Postoperative Nausea & Vomiting (PONV) Past Psychological History: Anxiety Smoking Status: Former smoker Past Alcohol Use History: None Reported Past Drug Use History: None Reported - Past Family History Father Additional Family Medical History / Comment(s): Father at the age of 57yrs with "heart problems". Mother Additional Family Medical History / Comment(s): Mother had an enlarged heart. She at the age of 79yrs. General Exam Limitations: no limitations General appearance: alert, in no apparent distress Head exam: Present: atraumatic, normocephalic, normal inspection Eye exam: Present: normal appearance, PERRL, EOMI. Absent: scleral icterus, conjunctival injection, periorbital swelling ENT exam: Present: normal exam, mucous membranes moist Neck exam: Present: normal inspection. Absent: tenderness, meningismus, lymphadenopathy Respiratory exam: Present: normal lung sounds bilaterally. Absent: respiratory distress, wheezes, rales, rhonchi, stridor Cardiovascular Exam: Present: regular rate, normal rhythm, normal heart sounds. Absent: systolic murmur, diastolic murmur, rubs, gallop, clicks GI/Abdominal exam: Present: soft, normal bowel sounds. Absent: distended, tenderness, guarding, rebound, rigid Extremities exam: Present: normal inspection, full ROM, normal capillary refill. Absent: tenderness, pedal edema, joint swelling, calf tenderness Back exam: Present: normal inspection Neurological exam: Present: alert, oriented X3, CN II-XII intact Psychiatric exam: Present: normal affect, normal mood Skin exam: Present: warm, dry, intact, normal color. Absent: rash Course Vital Signs 07/16/18 07/16/18 07/16/18 10:34 10:50 12:00 Temperature 97.9 F Pulse Rate 72 80 61 Respiratory 18 18 19 Rate Blood Pressure 222/84 234/90 197/78 O2 Sat by Pulse 99 97 98 Oximetry 07/16/18 07/16/18 07/16/18 12:30 13:01 13:30 Temperature Pulse Rate 60 69 Respiratory 24 22 Rate Blood Pressure 245/80 215/82 O2 Sat by Pulse 99 Oximetry 07/16/18 07/16/18 14:00 14:16 Temperature 97.7 F Pulse Rate 70 71 Respiratory 34 H 16 Rate Blood Pressure 153/88 196/81 O2 Sat by Pulse 98 97 Oximetry - Reevaluation(s) Reevaluation #1: Medical record is reviewed Pressure here is improved in the ER Medical Decision Making - Medical Decision Making 87 female the ER for evaluation. Patient is found elevated blood pressure. Otherwise studies are normal lab work is negative. Patient can be discharged home blood pressures improved will follow-up with primary care for further blood pressure management - Lab Data Result diagrams: 07/16/18 10:45 07/16/18 10:45 Lab Results 07/16/18 07/16/18 07/16/18 Range/Units 10:45 10:45 10:45 WBC 7.9 (3.8-10.6) k/uL RBC 3.86 (3.80-5.40) m/uL Hgb 11.7 (11.4-16.0) gm/dL Hct 36.4 (34.0-46.0) % MCV 94.2 (80.0-100.0) fL MCH 30.4 (25.0-35.0) pg MCHC 32.3 (31.0-37.0) g/dL RDW 14.1 (11.5-15.5) % Plt Count 233 (150-450) k/uL Neutrophils % 73 % Lymphocytes % 15 % Monocytes % 5 % Eosinophils % 4 % Basophils % 1 % Neutrophils # 5.8 (1.3-7.7) k/uL Lymphocytes # 1.2 (1.0-4.8) k/uL Monocytes # 0.4 (0-1.0) k/uL Eosinophils # 0.4 (0-0.7) k/uL Basophils # 0.1 (0-0.2) k/uL Sodium 138 (137-145) mmol/L Potassium 3.6 (3.5-5.1) mmol/L Chloride 103 (98-107) mmol/L Carbon Dioxide 27 (22-30) mmol/L Anion Gap 8 mmol/L BUN 15 (7-17) mg/dL Creatinine 0.76 (0.52-1.04) mg/dL Est GFR (CKD-EPI)AfAm 83 (>60 ml/min/1.73 sqM) Est GFR (CKD-EPI)NonAf 72 (>60 ml/min/1.73 sqM) Glucose 116 H (74-99) mg/dL Calcium 9.2 (8.4-10.2) mg/dL Phosphorus 3.5 (2.5-4.5) mg/dL Magnesium 1.8 (1.6-2.3) mg/dL Total Bilirubin 0.4 (0.2-1.3) mg/dL AST 30 (14-36) U/L ALT 27 (9-52) U/L Alkaline Phosphatase 79 (38-126) U/L Troponin I (0.000-0.034) ng/mL NT-Pro-B Natriuret Pep 982 pg/mL Total Protein 6.9 (6.3-8.2) g/dL Albumin 4.0 (3.5-5.0) g/dL Urine Color Urine Appearance (Clear) Urine pH (5.0-8.0) Ur Specific [place] (1.001-1.035) Urine Protein (Negative) Urine Glucose (UA) (Negative) Urine Ketones (Negative) Urine Blood (Negative) Urine Nitrite (Negative) Urine Bilirubin (Negative) Urine Urobilinogen (<2.0) mg/dL Ur Leukocyte Esterase (Negative) Urine WBC (0-5) /hpf Urine Mucus (None) /hpf 07/16/18 07/16/18 Range/Units 10:45 12:15 WBC (3.8-10.6) k/uL RBC (3.80-5.40) m/uL Hgb (11.4-16.0) gm/dL Hct (34.0-46.0) % MCV (80.0-100.0) fL MCH (25.0-35.0) pg MCHC (31.0-37.0) g/dL RDW (11.5-15.5) % Plt Count (150-450) k/uL Neutrophils % % Lymphocytes % % Monocytes % % Eosinophils % % Basophils % % Neutrophils # (1.3-7.7) k/uL Lymphocytes # (1.0-4.8) k/uL Monocytes # (0-1.0) k/uL Eosinophils # (0-0.7) k/uL Basophils # (0-0.2) k/uL Sodium (137-145) mmol/L Potassium (3.5-5.1) mmol/L Chloride (98-107) mmol/L Carbon Dioxide (22-30) mmol/L Anion Gap mmol/L BUN (7-17) mg/dL Creatinine (0.52-1.04) mg/dL Est GFR (CKD-EPI)AfAm (>60 ml/min/1.73 sqM) Est GFR (CKD-EPI)NonAf (>60 ml/min/1.73 sqM) Glucose (74-99) mg/dL Calcium (8.4-10.2) mg/dL Phosphorus (2.5-4.5) mg/dL Magnesium (1.6-2.3) mg/dL Total Bilirubin (0.2-1.3) mg/dL AST (14-36) U/L ALT (9-52) U/L Alkaline Phosphatase (38-126) U/L Troponin I <0.012 (0.000-0.034) ng/mL NT-Pro-B Natriuret Pep pg/mL Total Protein (6.3-8.2) g/dL Albumin (3.5-5.0) g/dL Urine Color Yellow Urine Appearance Clear (Clear) Urine pH 6.5 (5.0-8.0) Ur Specific [place] 1.009 (1.001-1.035) Urine Protein 2+ H (Negative) Urine Glucose (UA) Negative (Negative) Urine Ketones Negative (Negative) Urine Blood Negative (Negative) Urine Nitrite Negative (Negative) Urine Bilirubin Negative (Negative) Urine Urobilinogen <2.0 (<2.0) mg/dL Ur Leukocyte Esterase Trace H (Negative) Urine WBC 4 (0-5) /hpf Urine Mucus Rare H (None) /hpf - EKG Data -: EKG Interpreted by Me (EKG shows sinus rhythm rate of 61, IL 190, QRS 90, QTc 418) - Radiology Data Radiology results: report reviewed (CT brain negative for acute disease), image reviewed Disposition Clinical Impression: Hypertensive urgency, Altered mental state Disposition: HOME SELF-CARE Condition: Good Instructions (If sedation given, give patient instructions): Chronic Hypertension (ED) Is patient prescribed a controlled substance at d/c from ED?: No Referrals: Uri Chaudhary MD [Primary Care Provider] - 1-2 days
--- NOTE | 2018-07-16 12:56 | CT ---
EXAMINATION TYPE: CT brain wo con DATE OF EXAM: 07/16/2018 COMPARISON: 11/17/2015 HISTORY: Weakness and falls. CT DLP: 1075.4 mGycm Automated exposure control for dose reduction was used. FINDINGS: Small right occipital scalp hematoma measures 4 mm in greatest thickness with subcutaneous contusion. There are patchy areas of hypoattenuation in the subcortical and periventricular white matter. There is very minimal prominence of the ventricular system and peripheral sulci compatible with age-relate d volume loss. No suspicious extra-axial fluid collection is seen. No evidence of acute intracranial hemorrhage, midline shift or mass effect. Parra-white matter interface is overall maintained. Scleral calcifications are incidentally noted. IMPRESSION: 1. NO ACUTE INTRACRANIAL PROCESS. 2. SMALL RIGHT OCCIPITAL SCALP HEMATOMA AND SUBCUTANEOUS CONTUSION. 3. 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
--- NOTE | 2018-07-16 13:46 | XR ---
EXAMINATION TYPE: XR chest 2V DATE OF EXAM: 07/16/2018 COMPARISON: 11/18/2017 HISTORY: 87-year-old female with weakness and shortness of breath TECHNIQUE: AP and lateral views FINDINGS: Heart limits of normal in size. Diffuse interstitial prominence. Atherosclerotic arch calcifications. No consolidation or pleural effusion. IMPRESSION: COPD. Interstitial changes could reflect prominent component of chronic bronchitis or superimposed ac felisha bronchitis. Correlate to exclude atypical pneumonias.
[2018-07-16] MEDS ORDERED: cloNIDine HCL 0.2 MG TAB PO STA (14:11)
[2018-07-16 14:18] VITALS: BP 196/81; PULSE 71; RESP 16; TEMP 97.7
== END 2018-07-16 14:17 | disposition home or self-care (01) ==
LOC: EC 10:30
DX: I16.0 Hypertensive urgency (principal); R41.82 Altered mental status, unspecified; K21.9 Gastro-esophageal reflux disease without esophagitis; E78.5 Hyperlipidemia, unspecified; I10 Essential (primary) hypertension; I25.2 Old myocardial infarction; F41.9 Anxiety disorder, unspecified; I20.9 Angina pectoris, unspecified; Z86.73 Personal history of transient ischemic attack (TIA), and cerebral infarction without residual deficits; Z87.891 Personal history of nicotine dependence; Z79.899 Other long term (current) drug therapy; Z88.5 Allergy status to narcotic agent; Z91.011 Allergy to milk products; Z95.818 Presence of other cardiac implants and grafts; Z53.8 Procedure and treatment not carried out for other reasons
CPT/HCPCS: 99284; 96374; 96361; 36415; 93005; 83880; 80053; 83735; 84100; 84484; 85025; 81001; 71046; 70450; J0360

== ENCOUNTER 2018-11-08 05:39 | Inpatient (IN) | payer MEDICARE, BC ==
[2018-11-08] MEDS ORDERED: SODIUM CHLORIDE 0.9% 1,000 ML IV STA (05:50)
[2018-11-08] MEDS ORDERED: PANTOPRAZOLE 40 MG/10 ML VIAL IVP STA (06:02)
[2018-11-08] MEDS ORDERED: NALOXONE 0.4 MG/ML 1 ML VIAL IV PRN (06:03)
[2018-11-08 06:04] LABS: Basophils % (A) 0 %; Eosinophils # (A) 0.1 k/uL (0-0.7); Eosinophils % (A) 1 %; HCT 31.9 % (34.0-46.0); HGB 10.9 gm/dL (11.4-16.0); Lymphocytes # (A) 1.4 k/uL (1.0-4.8); Lymphocytes % (A) 11 %; MCH 30.1 pg (25.0-35.0); MCHC 34.1 g/dL (31.0-37.0); MCV 88.5 fL (80.0-100.0); Mean Platelet Volume 6.5; Monocytes % (A) 8 %; Neutrophils % (A) 79 %; Platelet Count 486 k/uL (150-450); RBC 3.61 m/uL (3.80-5.40); RDW 14.6 % (11.5-15.5); WBC 12.6 k/uL (3.8-10.6)
[2018-11-08 06:14] LABS: ALT 35 U/L (9-52); AST 31 U/L (14-36); African American GFR (CKD) >90 (>60 ml/min/1.73 sqM); Albumin 3.3 g/dL (3.5-5.0); Alkaline Phosphatase 154 U/L (38-126); Anion Gap 8 mmol/L; Blood Urea Nitrogen 13 mg/dL (7-17); Calcium 8.9 mg/dL (8.4-10.2); Carbon Dioxide 29 mmol/L (22-30); Chloride 97 mmol/L (98-107); Glucose 108 mg/dL (74-99); Non-African American GFR(CKD) 83 (>60 ml/min/1.73 sqM); Potassium 3.6 mmol/L (3.5-5.1); Sodium 134 mmol/L (137-145); Total Bilirubin 0.3 mg/dL (0.2-1.3); Total Protein 6.1 g/dL (6.3-8.2)
[2018-11-08] MEDS ORDERED: SODIUM CHLORIDE 0.9% 1,000 ML IV SCH (06:15)
--- NOTE | 2018-11-08 06:32 | ED ---
GI Bleed HPI - General Chief complaint: GI Bleed Stated complaint: Rectal Bleed Source: EMS Mode of arrival: EMS Limitations: no limitations - History of Present Illness Initial comments: Patient is an [age]-year-old female who presents to the emergency department today for evaluation of bright red blood per rectum. Patient reports she was in her usual state of health yesterday she woke this morning and had a soft bowel movement and noted there is bright red blood this is never happened to her before. Patient reports that she had regular colonoscopies until she was told she was old enough that she didn't need any any longer, she states she's never even had a all of her abnormality noted on colonoscopy. Patient states she takes aspirin but no other blood thinners. Patient reports crampy abdominal pain but no sharp pain. Patient does have a Frazier catheter in place due to recent urinary retention. - Related Data Home Medications Medication Instructions Recorded Confirmed Carvedilol 25 mg PO BID 12/18/13 11/08/18 Isosorbide Mononitrate [Imdur] 30 mg PO DAILY 12/18/13 11/08/18 LORazepam [Ativan] 1 mg PO BID 12/18/13 11/08/18 Multivitamin/Iron/Folic Acid 1 tab PO DAILY 11/17/15 11/08/18 [Centrum Complete Multivit Tab] Tolterodine Tartrate [Detrol LA] 4 mg PO DAILY 11/17/15 11/08/18 Ezetimibe/Simvastatin [Vytorin 1 tab PO HS 11/17/17 11/08/18 10-20 mg Tablet] Cholecalciferol [Vitamin D3 (25 1,000 unit PO DAILY 07/16/18 11/08/18 Mcg = 1000 Iu)] Aspirin EC [Ecotrin Low Dose] 81 mg PO DAILY 09/16/18 11/08/18 Cyanocobalamin (Vitamin B-12) 1,000 mcg PO DAILY 09/20/18 11/08/18 [Vitamin B-12] cloNIDine HCL [Catapres] 0.2 mg PO BID 11/08/18 11/08/18 Allergies Allergy/AdvReac Type Severity Reaction Status Date / Time oxycodone [From Percocet] Allergy Unknown Verified 11/08/18 07:30 codeine AdvReac Nausea & Verified 11/08/18 07:30 Vomiting meperidine HCl [From Demerol] AdvReac Nausea & Verified 11/08/18 07:30 Vomiting morphine AdvReac Nausea & Verified 11/08/18 07:30 Vomiting Review of Systems ROS Statement: Those systems with pertinent positive or pertinent negative responses have been documented in the HPI. ROS Other: All systems not noted in ROS Statement are negative. Past Medical History Past Medical History: Chest Pain / Angina, CVA/TIA, GERD/Reflux, Hyperlipidemia, Hypertension, Myocardial Infarction ([place]), Syncope Additional Past Medical History / Comment(s): Past syncopal episodes, TIAs, UTIs, DJD spin, chronic back pain, arthritis hands, diverticular disease. Last Myocardial Infarction Date:: 11/16/2010 History of Any Multi-Drug Resistant Organisms: None Reported Past Surgical History: Adenoidectomy, Appendectomy, Back Surgery, Cholecystectomy, Heart Catheterization, Hysterectomy, Tonsillectomy Additional Past Surgical History / Comment(s): cardiac caths in 2010 and 2013, back fusion/discectomy, colonoscopy, bilateral cataract removal with lens implants, Past Anesthesia/Blood Transfusion Reactions: Postoperative Nausea & Vomiting (PONV) Past Psychological History: Anxiety Smoking Status: Former smoker Past Alcohol Use History: None Reported Past Drug Use History: None Reported - Past Family History Father Additional Family Medical History / Comment(s): Father at the age of 57yrs with "heart problems". Mother Additional Family Medical History / Comment(s): Mother had an enlarged heart. She at the age of 79yrs. General Exam - General Exam Comments Initial Comments: Physical Exam GENERAL: Patient is well-developed and well-nourished. Patient is nontoxic and well- hydrated and is in no distress. HENT: Normocephalic, Atraumatic. EYES: PERRL, EOMI No conjunctival palor PULMONARY: Unlabored respirations. No audible rales rhonchi or wheezing was noted. CARDIOVASCULAR: RRR ABDOMEN: Soft and nontender with normal bowel sounds. SKIN: Skin is clear with no lesions or rashes and otherwise unremarkable. No palor : Frazier catheter in place Rectal exam with bright red blood noted, soft stool noted, no hemorrhoids NEUROLOGIC: Patient is alert and oriented x3. Moving all extremities spontaneously MUSCULOSKELETAL: Normal extremities with adequate strength and full range of motion. No lower extremity swelling or edema. No calf tenderness. PSYCHIATRIC: Normal psychiatric evaluation. Limitations: no limitations Course Vital Signs 11/08/18 11/08/18 11/08/18 05:41 05:48 06:40 Temperature 98.2 F Pulse Rate 71 90 63 Respiratory 20 17 18 Rate Blood Pressure 210/120 210/120 219/85 O2 Sat by Pulse 99 97 92 L Oximetry 11/08/18 11/08/18 06:50 07:25 Temperature Pulse Rate 101 H 104 H Respiratory 22 19 Rate Blood Pressure 201/70 192/75 O2 Sat by Pulse 95 98 Oximetry Medical Decision Making - Medical Decision Making Patient was seen and evaluated upon arrival Patient hypertensive, not tachycardic Bright red blood per rectum Labs at baseline - patient Hgb actually improved from previous Lactic acid not elevated Patient to be admitted for evaluation by GI Patient name, stable not requiring admission to the ICU at this time She remained hypertensive, home dose of clonidine was ordered - Lab Data Result diagrams: 11/08/18 05:38 11/08/18 05:38 Lab Results 11/08/18 11/08/18 11/08/18 Range/Units 05:38 05:38 05:38 WBC 12.6 H (3.8-10.6) k/uL RBC 3.61 L (3.80-5.40) m/uL Hgb 10.9 L (11.4-16.0) gm/dL Hct 31.9 L (34.0-46.0) % MCV 88.5 (80.0-100.0) fL MCH 30.1 (25.0-35.0) pg MCHC 34.1 (31.0-37.0) g/dL RDW 14.6 (11.5-15.5) % Plt Count 486 H (150-450) k/uL Neutrophils % 79 % Lymphocytes % 11 % Monocytes % 8 % Eosinophils % 1 % Basophils % 0 % Neutrophils # 10.0 H (1.3-7.7) k/uL Lymphocytes # 1.4 (1.0-4.8) k/uL Monocytes # 1.0 (0-1.0) k/uL Eosinophils # 0.1 (0-0.7) k/uL Basophils # 0.0 (0-0.2) k/uL APTT (22.0-30.0) sec Sodium 134 L (137-145) mmol/L Potassium 3.6 (3.5-5.1) mmol/L Chloride 97 L (98-107) mmol/L Carbon Dioxide 29 (22-30) mmol/L Anion Gap 8 mmol/L BUN 13 (7-17) mg/dL Creatinine 0.62 (0.52-1.04) mg/dL Est GFR (CKD-EPI)AfAm >90 (>60 ml/min/1.73 sqM) Est GFR (CKD-EPI)NonAf 83 (>60 ml/min/1.73 sqM) Glucose 108 H (74-99) mg/dL Plasma Lactic Acid Romeo 1.0 (0.7-2.0) mmol/L Calcium 8.9 (8.4-10.2) mg/dL Total Bilirubin 0.3 (0.2-1.3) mg/dL AST 31 (14-36) U/L ALT 35 (9-52) U/L Alkaline Phosphatase 154 H (38-126) U/L Troponin I (0.000-0.034) ng/mL Total Protein 6.1 L (6.3-8.2) g/dL Albumin 3.3 L (3.5-5.0) g/dL Stool Occult Blood (Negative) Blood Type Blood Type Confirm Blood Type Recheck Antibody Screen Spec Expiration Date 11/08/18 11/08/18 11/08/18 Range/Units 05:38 05:38 05:38 WBC (3.8-10.6) k/uL RBC (3.80-5.40) m/uL Hgb (11.4-16.0) gm/dL Hct (34.0-46.0) % MCV (80.0-100.0) fL MCH (25.0-35.0) pg MCHC (31.0-37.0) g/dL RDW (11.5-15.5) % Plt Count (150-450) k/uL Neutrophils % % Lymphocytes % % Monocytes % % Eosinophils % % Basophils % % Neutrophils # (1.3-7.7) k/uL Lymphocytes # (1.0-4.8) k/uL Monocytes # (0-1.0) k/uL Eosinophils # (0-0.7) k/uL Basophils # (0-0.2) k/uL APTT 21.6 L (22.0-30.0) sec Sodium (137-145) mmol/L Potassium (3.5-5.1) mmol/L Chloride (98-107) mmol/L Carbon Dioxide (22-30) mmol/L Anion Gap mmol/L BUN (7-17) mg/dL Creatinine (0.52-1.04) mg/dL Est GFR (CKD-EPI)AfAm (>60 ml/min/1.73 sqM) Est GFR (CKD-EPI)NonAf (>60 ml/min/1.73 sqM) Glucose (74-99) mg/dL Plasma Lactic Acid Romeo (0.7-2.0) mmol/L Calcium (8.4-10.2) mg/dL Total Bilirubin (0.2-1.3) mg/dL AST (14-36) U/L ALT (9-52) U/L Alkaline Phosphatase (38-126) U/L Troponin I <0.012 (0.000-0.034) ng/mL Total Protein (6.3-8.2) g/dL Albumin (3.5-5.0) g/dL Stool Occult Blood (Negative) Blood Type A Positive Blood Type Confirm Blood Type Recheck CABO Indicated Antibody Screen NEGATIVE Spec Expiration Date 11/11/2018233711/08/18 11/08/18 Range/Units 06:00 06:01 WBC (3.8-10.6) k/uL RBC (3.80-5.40) m/uL Hgb (11.4-16.0) gm/dL Hct (34.0-46.0) % MCV (80.0-100.0) fL MCH (25.0-35.0) pg MCHC (31.0-37.0) g/dL RDW (11.5-15.5) % Plt Count (150-450) k/uL Neutrophils % % Lymphocytes % % Monocytes % % Eosinophils % % Basophils % % Neutrophils # (1.3-7.7) k/uL Lymphocytes # (1.0-4.8) k/uL Monocytes # (0-1.0) k/uL Eosinophils # (0-0.7) k/uL Basophils # (0-0.2) k/uL APTT (22.0-30.0) sec Sodium (137-145) mmol/L Potassium (3.5-5.1) mmol/L Chloride (98-107) mmol/L Carbon Dioxide (22-30) mmol/L Anion Gap mmol/L BUN (7-17) mg/dL Creatinine (0.52-1.04) mg/dL Est GFR (CKD-EPI)AfAm (>60 ml/min/1.73 sqM) Est GFR (CKD-EPI)NonAf (>60 ml/min/1.73 sqM) Glucose (74-99) mg/dL Plasma Lactic Acid Romeo (0.7-2.0) mmol/L Calcium (8.4-10.2) mg/dL Total Bilirubin (0.2-1.3) mg/dL AST (14-36) U/L ALT (9-52) U/L Alkaline Phosphatase (38-126) U/L Troponin I (0.000-0.034) ng/mL Total Protein (6.3-8.2) g/dL Albumin (3.5-5.0) g/dL Stool Occult Blood Positive H (Negative) Blood Type Blood Type Confirm A Positive Blood Type Recheck Antibody Screen Spec Expiration Date Disposition Clinical Impression: BRBPR (bright red blood per rectum), HTN (hypertension) Disposition: ADMITTED IP TO THIS [facility] Condition: Serious
[2018-11-08] MEDS ORDERED: cloNIDine HCL 0.1 MG TAB PO STA (07:21)
[2018-11-08 09:53] VITALS: BMI 24.4
[2018-11-08] MEDS ORDERED: POLYETHYLENE GLYCOL 3350 17 GM POWD.PACK PO PRN (10:28)
[2018-11-08] MEDS: CARVEDILOL 12.5 MG TAB PO SCH ×2 (11:03→16:54)
[2018-11-08] MEDS: LISINOPRIL 20 MG TAB PO SCH (12:02)
[2018-11-08] MEDS: FLUoxetine HCL 10 MG CAP PO SCH (12:02)
[2018-11-08] MEDS: traMADol 50 MG TAB PO PRN ×2 (12:02→16:54)
--- NOTE | 2018-11-08 13:07 | P.HPIM ---
History of Present Illness Patient is a pleasant 87-year-old female came in with complaints of bright red blood per rectum patient the appears to have hemorrhoids. Patient was evaluated gastroneurology. Patient is presently not constipated gastric body evaluate the patient offered colonoscopy but patient declined to have the procedure done patient will undergo colonoscopy down the line and the if patient the doesn't have any more GI bleed patient will be discharged today. Patient the does take aspirin at home does have a Frazier catheter for urinary retention Frazier catheter will be removed and patient will resume or monitored overnight for urinary ret ention. Patient blood pressure is an 200 systolic although patient is not inhibitors emergency patient will be given 20 mg of lisinopril clonidine will be discontinued and the patient is on Coreg patient did take Coreg today we will monitor closely Review of Systems REVIEW OF SYSTEMS: CONSTITUTIONAL: No fever, no malaise, no fatigue. HEENT: No recent visual problems or hearing problems. Denied any sore throat. CARDIOVASCULAR: No chest pain, orthopnea, PND, no palpitations, no syncope. PULMONARY: No shortness of breath, no cough, no hemoptysis. GASTROINTESTINAL: No diarrhea, no nausea, no vomiting, no abdominal pain. NEUROLOGICAL: No headaches, no weakness, no numbness. HEMATOLOGICAL: Denies any bleeding or petechiae. GENITOURINARY: Denies any burning micturition, frequency, or urgency. MUSCULOSKELETAL/RHEUMATOLOGICAL: Denies any joint pain, swelling, or any muscle pain. ENDOCRINE: Denies any polyuria or polydipsia. The rest of the 14-point review of systems is negative. Past Medical History Past Medical History: Chest Pain / Angina, CVA/TIA, GERD/Reflux, Hyperlipidemia, Hypertension, Myocardial Infarction ([place]), Pneumonia, Syncope Additional Past Medical History / Comment(s): Past syncopal episodes, TIAs, UTIs, DJD spin, chronic back pain, arthritis hands, diverticular disease. Last Myocardial Infarction Date:: 11/16/2010 History of Any Multi-Drug Resistant Organisms: None Reported Past Surgical History: Adenoidectomy, Appendectomy, Back Surgery, Cholecystectomy, Heart Catheterization, Hysterectomy, Tonsillectomy Additional Past Surgical History / Comment(s): cardiac caths in 2010 and 2013, back fusion/discectomy, colonoscopy, bilateral cataract removal with lens implants, Past Anesthesia/Blood Transfusion Reactions: Postoperative Nausea & Vomiting (PONV) Past Psychological History: Anxiety Additional Psychological History / Comment(s): takes ativan for anxiety Smoking Status: Former smoker Past Alcohol Use History: None Reported Additional Past Alcohol Use History / Comment(s): Pt states she started smoking in 1949 and quit in 1975. She will have an occasional glass of wine. Past Drug Use History: None Reported - Past Family History Father Additional Family Medical History / Comment(s): Father at the age of 57yrs with "heart problems". Mother Additional Family Medical History / Comment(s): Mother had an enlarged heart. She at the age of 79yrs. Medications and Allergies Home Medications Medication Instructions Recorded Confirmed Type Carvedilol 25 mg PO BID 12/18/13 11/08/18 History Isosorbide Mononitrate [Imdur] 30 mg PO DAILY 12/18/13 11/08/18 History LORazepam [Ativan] 1 mg PO BID 12/18/13 11/08/18 History Multivitamin/Iron/Folic Acid 1 tab PO DAILY 11/17/15 11/08/18 History [Centrum Complete Multivit Tab] Tolterodine Tartrate [Detrol LA] 4 mg PO DAILY 11/17/15 11/08/18 History Ezetimibe/Simvastatin [Vytorin 1 tab PO HS 11/17/17 11/08/18 History 10-20 mg Tablet] Cholecalciferol [Vitamin D3 (25 1,000 unit PO DAILY 07/16/18 11/08/18 History Mcg = 1000 Iu)] Aspirin EC [Ecotrin Low Dose] 81 mg PO DAILY 09/16/18 11/08/18 History Cyanocobalamin (Vitamin B-12) 1,000 mcg PO DAILY 09/20/18 11/08/18 History [Vitamin B-12] cloNIDine HCL [Catapres] 0.2 mg PO BID 11/08/18 11/08/18 History Allergies Allergy/AdvReac Type Severity Reaction Status Date / Time oxycodone [From Percocet] Allergy Unknown Verified 11/08/18 07:30 codeine AdvReac Nausea & Verified 11/08/18 07:30 Vomiting meperidine HCl [From Demerol] AdvReac Nausea & Verified 11/08/18 07:30 Vomiting morphine AdvReac Nausea & Verified 11/08/18 07:30 Vomiting Physical Exam Vitals: Vital Signs Temp Pulse Pulse Resp BP BP Pulse Ox 11/08/18 12:00 217/98 11/08/18 09:34 96.6 F L 86 18 205/89 97 11/08/18 08:36 78 18 168/80 95 11/08/18 07:25 104 H 19 192/75 98 11/08/18 06:50 101 H 22 201/70 95 11/08/18 06:40 63 18 219/85 92 L 11/08/18 05:48 90 17 210/120 97 11/08/18 05:41 98.2 F 71 20 210/120 99 Intake and Output 11/07/18 11/08/18 11/08/18 22:59 06:59 14:59 Output Total 1300 Balance -1300 Output: Urine 1300 Other: Weight 56.699 kg PHYSICAL EXAMINATION: GENERAL: The patient is alert and oriented x3, not in any acute distress. Well developed, well nourished. HEENT: Pupils are round and equally reacting to light. EOMI. No scleral icterus. No conjunctival pallor. Normocephalic, atraumatic. No pharyngeal erythema. No thyromegaly. CARDIOVASCULAR: S1 and S2 present. No murmurs, rubs, or gallops. PULMONARY: Chest is clear to auscultation, no wheezing or crackles. ABDOMEN: Soft, nontender, nondistended, normoactive bowel sounds. No palpable organomegaly. MUSCULOSKELETAL: No joint swelling or deformity. EXTREMITIES: No cyanosis, clubbing, or pedal edema. NEUROLOGICAL: Gross neurological examination did not reveal any focal deficits. SKIN: No rashes. Results CBC & Chem 7: 11/08/18 05:38 11/08/18 05:38 Labs: Abnormal Lab Results - Last 24 Hours (Table) 11/08/18 11/08/18 11/08/18 Range/Units 05:38 05:38 05:38 WBC 12.6 H (3.8-10.6) k/uL RBC 3.61 L (3.80-5.40) m/uL Hgb 10.9 L (11.4-16.0) gm/dL Hct 31.9 L (34.0-46.0) % Plt Count 486 H (150-450) k/uL Neutrophils # 10.0 H (1.3-7.7) k/uL APTT 21.6 L (22.0-30.0) sec Sodium 134 L (137-145) mmol/L Chloride 97 L (98-107) mmol/L Glucose 108 H (74-99) mg/dL Alkaline Phosphatase 154 H (38-126) U/L Total Protein 6.1 L (6.3-8.2) g/dL Albumin 3.3 L (3.5-5.0) g/dL Stool Occult Blood (Negative) 11/08/18 Range/Units 06:01 WBC (3.8-10.6) k/uL RBC (3.80-5.40) m/uL Hgb (11.4-16.0) gm/dL Hct (34.0-46.0) % Plt Count (150-450) k/uL Neutrophils # (1.3-7.7) k/uL APTT (22.0-30.0) sec Sodium (137-145) mmol/L Chloride (98-107) mmol/L Glucose (74-99) mg/dL Alkaline Phosphatase (38-126) U/L Total Protein (6.3-8.2) g/dL Albumin (3.5-5.0) g/dL Stool Occult Blood Positive H (Negative) Thrombosis Risk Factor Assmnt - Choose All That Apply Any of the Below Risk Factors Present?: No Other Risk Factors: Yes Each Risk Factor Represents 2 Points: Age 61-74 years Each Risk Factor Represents 3 Points: Age 75 years or older Each Risk Factor Represents 5 Points: Hip, pelvis, or leg fracture (< 1 month) Thrombosis Risk Factor Assessment Total Risk Factor Score: 10 Thrombosis Risk Factor Assessment Level: High Risk Assessment and Plan Plan: -Bright red blood per rectum: Probably secondary to hemorrhoids was monitored overnight patient the GI bleed resolved at this time. -Axial rated hypertension: Patient will be started on the ENOCH inhibitor continue with Coreg and clonidine . -Urinary retention for which patient is a 42 To Frazier catheter will be removed and patient will be monitored today with the bladder scans for any urinary retention -Leukocytosis reactive -Hypervolemic hyponatremia expected to improve with IV fluids next and- gastroesophageal reflux disease -Hyperlipidemia -Anxiety disorder: Discontinue Ativan patient will be started on SSRI.
[2018-11-08] MEDS ORDERED: LISINOPRIL 20 MG TAB PO STA (16:01)
[2018-11-08] MEDS ORDERED: CARVEDILOL 12.5 MG TAB PO SCH (17:30)
--- NOTE | 2018-11-08 18:36 | P.CONS ---
History of Present Illness - Reason for Consult Consult date: 11/08/18 Bright red blood per rectum Requesting physician: Lupillo Vázquez - Chief Complaint Bloody bowel movements - History of Present Illness 87-year-old female with a medical history significant for dyslipidemia and hypertension who presented to the hospital for evaluation of blood per rectum. The patient reports initially having one episode of stool with blood streaked in at approximately 5 days ago. She had no further episodes until this morning when she woke up around 5 AM and had a grossly bloody bowel movement. She reports 2 episodes including one at the hospital in the emergency department. She denies any thuy abdominal pain but does report some cramping. She denies any prior history of rectal bleeding. She denies any anticoagulation therapy. She is on a baby aspirin daily. She denies any recent change in bowels including constipation or diarrhea. She was previously taking Aleve infrequently for pain but now is taking Tylenol over the past few weeks. After presentation to the hospital she reports one episode of nonbloody stool with some burgundy mixed in after being admitted to the medical floor. Laboratory evaluation on presentation was significant for a hemoglobin of 10.9. She previously had a computed tomography scan of the abdomen in August which was negative for any intra-abdominal pathology. Stool testing on presentation was positive for occult blood. Total bilirubin 0.3, phosphatase 154, AST 31 and ALTs 35. Last colonoscopy 5-10 years ago at which time the patient was told she no longer needed screening colonoscopies. Review of Systems REVIEW OF SYSTEMS: CONSTITUTIONAL: Denies any fevers, chills, weight change or fatigue. CARDIOVASCULAR: Denies any chest pain, palpitations high or low blood pressures RESPIRATORY: Denies any shortness of breath, hemoptysis or cough. GENITOURINARY: No dysuria or hematuria, with the patient having a Frazier catheter placed a few days ago at [facility] and [facility]. MUSCULOSKELETAL: No weakness reported. SKIN: Denies any new rashes or lesions, jaundice or pallor. PSYCHIATRIC: Denies any depression or anxiety. NEUROLOGY: Denies headache, denies any new focal deficits. EARS/NOSE/THROAT: No recent hearing change, congestion, nasal discharge or sore throat. EYES: No pain in eyes, discharge or change in vision. GASTROINTESTINAL: As per HPI. Past Medical History Past Medical History: Chest Pain / Angina, CVA/TIA, GERD/Reflux, Hyperlipidemia, Hypertension, Myocardial Infarction (CO), Pneumonia, Syncope Additional Past Medical History / Comment(s): Past syncopal episodes, TIAs, UTIs, DJD spin, chronic back pain, arthritis hands, diverticular disease. Last Myocardial Infarction Date:: 11/16/2010 History of Any Multi-Drug Resistant Organisms: None Reported Past Surgical History: Adenoidectomy, Appendectomy, Back Surgery, Cholecystectomy, Heart Catheterization, Hysterectomy, Tonsillectomy Additional Past Surgical History / Comment(s): cardiac caths in 2010 and 2013, back fusion/discectomy, colonoscopy, bilateral cataract removal with lens implants, Past Anesthesia/Blood Transfusion Reactions: Postoperative Nausea & Vomiting (PONV) Past Psychological History: Anxiety Additional Psychological History / Comment(s): takes ativan for anxiety Smoking Status: Former smoker Past Alcohol Use History: None Reported Additional Past Alcohol Use History / Comment(s): Pt states she started smoking in 1950 and quit in 1975. She will have an occasional glass of wine. Past Drug Use History: None Reported - Past Family History Father Additional Family Medical History / Comment(s): Father at the age of 57yrs with "heart problems". Mother Additional Family Medical History / Comment(s): Mother had an enlarged heart. She at the age of 79yrs. Medications and Allergies Home Medications Medication Instructions Recorded Confirmed Type Carvedilol 25 mg PO BID 12/18/13 11/08/18 History Isosorbide Mononitrate [Imdur] 30 mg PO DAILY 12/18/13 11/08/18 History LORazepam [Ativan] 1 mg PO BID 12/18/13 11/08/18 History Multivitamin/Iron/Folic Acid 1 tab PO DAILY 11/17/15 11/08/18 History [Centrum Complete Multivit Tab] Tolterodine Tartrate [Detrol LA] 4 mg PO DAILY 11/17/15 11/08/18 History Ezetimibe/Simvastatin [Vytorin 1 tab PO HS 11/17/17 11/08/18 History 10-20 mg Tablet] Cholecalciferol [Vitamin D3 (25 1,000 unit PO DAILY 07/16/18 11/08/18 History Mcg = 1000 Iu)] Aspirin EC [Ecotrin Low Dose] 81 mg PO DAILY 09/16/18 11/08/18 History Cyanocobalamin (Vitamin B-12) 1,000 mcg PO DAILY 09/20/18 11/08/18 History [Vitamin B-12] cloNIDine HCL [Catapres] 0.2 mg PO BID 11/08/18 11/08/18 History Allergies Allergy/AdvReac Type Severity Reaction Status Date / Time oxycodone [From Percocet] Allergy Unknown Verified 11/08/18 07:30 codeine AdvReac Nausea & Verified 11/08/18 07:30 Vomiting meperidine HCl [From Demerol] AdvReac Nausea & Verified 11/08/18 07:30 Vomiting morphine AdvReac Nausea & Verified 11/08/18 07:30 Vomiting Physical Exam Vitals: Vital Signs Temp Pulse Pulse Resp BP BP Pulse Ox 11/08/18 15:54 73 18 203/84 96 11/08/18 12:00 217/98 11/08/18 09:34 96.6 F L 86 18 205/89 97 11/08/18 08:36 78 18 168/80 95 11/08/18 07:25 104 H 19 192/75 98 11/08/18 06:50 101 H 22 201/70 95 11/08/18 06:40 63 18 219/85 92 L 11/08/18 05:48 90 17 210/120 97 11/08/18 05:41 98.2 F 71 20 210/120 99 Intake and Output 11/08/18 11/08/18 11/08/18 06:59 14:59 22:59 Intake Total 120 240 Output Total 1300 Balance -1180 240 Intake: Oral 120 240 Output: Urine 1300 Other: # Voids 5 Weight 56.699 kg On physical examination, patient appears comfortable in no apparent distress. HEAD: Normocephalic, atraumatic. EYES: No scleral icterus. No conjunctival injection. MOUTH: No lesions, tongue midline. NECK: Trachea midline, no gross abnormalities. CHEST: Clear to auscultation with no wheezing or rhonchi appreciated. HEART: Regular rate and rhythm. ABDOMEN: Soft. Bowel sounds are positive. No organomegaly. No guarding or rigidity. EXTREMITIES: No pedal edema. SKIN: No rashes, no jaundice. NEUROLOGIC: Alert and oriented x3. No focal deficits. Results CBC & Chem 7: 11/08/18 05:38 11/08/18 05:38 Labs: Abnormal Lab Results - Last 24 Hours (Table) 11/08/18 11/08/18 11/08/18 Range/Units 05:38 05:38 05:38 WBC 12.6 H (3.8-10.6) k/uL RBC 3.61 L (3.80-5.40) m/uL Hgb 10.9 L (11.4-16.0) gm/dL Hct 31.9 L (34.0-46.0) % Plt Count 486 H (150-450) k/uL Neutrophils # 10.0 H (1.3-7.7) k/uL APTT 21.6 L (22.0-30.0) sec Sodium 134 L (137-145) mmol/L Chloride 97 L (98-107) mmol/L Glucose 108 H (74-99) mg/dL Alkaline Phosphatase 154 H (38-126) U/L Total Protein 6.1 L (6.3-8.2) g/dL Albumin 3.3 L (3.5-5.0) g/dL Stool Occult Blood (Negative) 11/08/18 Range/Units 06:01 WBC (3.8-10.6) k/uL RBC (3.80-5.40) m/uL Hgb (11.4-16.0) gm/dL Hct (34.0-46.0) % Plt Count (150-450) k/uL Neutrophils # (1.3-7.7) k/uL APTT (22.0-30.0) sec Sodium (137-145) mmol/L Chloride (98-107) mmol/L Glucose (74-99) mg/dL Alkaline Phosphatase (38-126) U/L Total Protein (6.3-8.2) g/dL Albumin (3.5-5.0) g/dL Stool Occult Blood Positive H (Negative) CT scan - abdomen: report reviewed (Computed tomography scan of the abdomen in August negative for any intra-abdominal pathology) Assessment and Plan (1) BRBPR (bright red blood per rectum) Narrative/Plan: 87-year-old female who presented to the hospital with complaints of bright red blood per rectum. She denies any prior episodes with last colonoscopy approximately 5 years ago and negative to her recollection. No pain with the episode however the patient did report some abdominal cramping. 2 episodes with nonbloody slightly burgundy bowel movements after presentation to the medical floor. Unknown etiology, with differential including AVM, diverticular bleed, hemorrhoidal bleeding or other etiology. Current Visit: Yes Status: Acute Code(s): K62.5 - HEMORRHAGE OF ANUS AND RECTUM SNOMED Code(s): 55680124 (2) HTN (hypertension) Current Visit: Yes Status: Acute Code(s): I10 - ESSENTIAL (PRIMARY) HYPERTENSION SNOMED Code(s): 92212700 Plan: Supportive care Continue to monitor hemoglobin and transfuse as needed Okay for liquid diet Continue to monitor stool output Extensive conversation with the patient, her daughter and during which the patient was offered a colonoscopy for further evaluation, however given the patient's age and recent pelvic fracture. She would like to continue with conservative treatment, and will with the medical team know if she changes her mind and would like to proceed with endoscopic evaluation. Thank you for allowing us to participate in the care of the patient we will continue to follow
[2018-11-08] MEDS ORDERED: EZETIMIBE 10 MG TAB PO SCH (21:00)
[2018-11-08] MEDS ORDERED: ATORVASTATIN 10 MG TAB PO SCH (21:00)
[2018-11-08] MEDS ORDERED: LORazepam 1 MG TAB PO STA (21:26)
[2018-11-08] MEDS: hydrALAZINE HCL 20 MG/ML 1 ML VIAL IVP PRN (22:06)
[2018-11-09] MEDS: traMADol 50 MG TAB PO PRN (03:30)
[2018-11-09] MEDS: hydrALAZINE HCL 20 MG/ML 1 ML VIAL IVP PRN (04:21)
[2018-11-09 04:34] VITALS: RESP 18
[2018-11-09 05:06] LABS: Glucose,Whole Blood 100 mg/dL (75-99)
[2018-11-09 06:24] LABS: HCT 34.5 % (34.0-46.0); HGB 11.2 gm/dL (11.4-16.0); MCH 29.2 pg (25.0-35.0); MCHC 32.5 g/dL (31.0-37.0); MCV 89.8 fL (80.0-100.0); Mean Platelet Volume 6.2; Platelet Count 508 k/uL (150-450); RBC 3.84 m/uL (3.80-5.40); RDW 13.9 % (11.5-15.5); WBC 14.3 k/uL (3.8-10.6)
[2018-11-09 06:32] LABS: African American GFR (CKD) >90 (>60 ml/min/1.73 sqM); Anion Gap 7 mmol/L; Blood Urea Nitrogen 11 mg/dL (7-17); Calcium 8.5 mg/dL (8.4-10.2); Carbon Dioxide 28 mmol/L (22-30); Chloride 97 mmol/L (98-107); Glucose 96 mg/dL (74-99); Non-African American GFR(CKD) 83 (>60 ml/min/1.73 sqM); Potassium 3.5 mmol/L (3.5-5.1); Sodium 132 mmol/L (137-145)
[2018-11-09] MEDS: CARVEDILOL 12.5 MG TAB PO SCH (07:19)
[2018-11-09] MEDS: LISINOPRIL 20 MG TAB PO SCH (08:17)
[2018-11-09] MEDS: FLUoxetine HCL 10 MG CAP PO SCH (08:17)
--- NOTE | 2018-11-09 08:20 | P.PN ---
Subjective Progress Note Date: 11/09/18 Principal diagnosis: Bright red blood per rectum Nonbloody bowel movement x 1 last night. No abdominal complaints. Hemoglobin improved today 11.2. Patient requesting discharge. Objective - Vital Signs Vital signs: Vital Signs Temp 98 F 11/09/18 00:00 Pulse 85 11/09/18 04:00 Resp 18 11/09/18 04:00 BP 159/76 11/09/18 06:30 Pulse Ox 97 11/09/18 06:03 Intake & Output 11/08/18 11/09/18 11/09/18 18:59 06:59 18:59 Intake Total 360 600 Output Total 1300 Balance -940 600 Weight 55.3 kg Intake: Oral 360 600 Output: Urine 1300 Other: Voiding Method Toilet # Voids 5 2 1 # Bowel Movements 2 1 - Exam General appearance: The patient is alert, oriented, in no acute distress. HET: Head is normocephalic and atraumatic. Pupils are equal and reactive. Oropharynx is clear without lesions. Neck: Supple without lymphadenopathy. Trachea midline. Heart: S1 S2. Regular rate and rhythm. Lungs: No crackles or wheezes are heard. Abdomen: Soft, nontender, nondistended with bowel sounds. No peritoneal signs. No palpable organomegaly or masses. Extremities: Normal skin color and turgor. No cyanosis, rash, ulceration, clubbing, or edema. Radial and pedal pulses are 2/4 bilaterally. Neurological: No focal deficits. Strength and sensation are grossly intact. - Labs CBC & Chem 7: 11/09/18 05:57 11/09/18 05:57 Labs: Abnormal Lab Results - Last 24 Hours (Table) 11/09/18 11/09/18 11/09/18 Range/Units 05:04 05:57 05:57 WBC 14.3 H (3.8-10.6) k/uL Hgb 11.2 L (11.4-16.0) gm/dL Plt Count 508 H (150-450) k/uL Sodium 132 L (137-145) mmol/L Chloride 97 L (98-107) mmol/L POC Glucose (mg/dL) 100 H (75-99) mg/dL Assessment and Plan (1) BRBPR (bright red blood per rectum) Narrative/Plan: Resolving Current Visit: Yes Status: Acute Code(s): K62.5 - HEMORRHAGE OF ANUS AND RECTUM SNOMED Code(s): 59300874 (2) HTN (hypertension) Current Visit: Yes Status: Acute Code(s): I10 - ESSENTIAL (PRIMARY) HYPER TENSION SNOMED Code(s): 30072773 Plan: 1. Patient is requested conservative measures. Hemoglobin stable. Discharge per medicine. Assessment and plan a care discussed with Dr. Woo
[2018-11-09 08:26] VITALS: BP 104/58; PULSE 82; TEMP 98.3
[2018-11-09] MEDS ORDERED: OXYBUTYNIN 10 MG TAB.ER.24 PO SCH (09:00)
[2018-11-09] MEDS ORDERED: ISOSORBIDE MONONITRATE ER 30 MG TAB.ER.24H PO SCH (09:00)
--- NOTE | 2018-11-09 13:06 | P.DS ---
Providers Date of admission: 11/08/18 06:03 Attending physician: Claude Yusuf Primary care physician: [facility] Course: Patient is a pleasant 87-year-old female came in with complaints of bright red blood per rectum patient the appears to have hemorrhoids. Patient was evaluated gastroneurology. Patient is presently not constipated gastric body evaluate the patient offered colonoscopy but patient declined to have the procedure done patient will undergo colonoscopy down the line and the if patient the doesn't have any more GI bleed patient will be discharged today. Patient the does take aspirin at home does have a Frazier catheter for urinary retention Frazier catheter will be removed and patient will resume or monitored overnight for urinary retention. Patient blood pressure is an 200 systolic although patient is not inhibitors emergency patient will be given 20 mg of lisinopril clonidine will be discontinued and the patient is on Coreg patient did take Coreg today we will monitor closely 11/09/2018 Patient doesn't have any more GI bleed and gastroenterology is recommending to resume aspirin. Patient was started on lisinopril yesterday blood pressure is significantly down. Patient blood pressure is actually low normal now because of which I'll cut down lisinopril to 10 mg and will be discharged on this and patient will follow with PCP as an outpatient. Patient is also on Coreg which will be continued clonidine was discontinued. Patient the is bit hyponatremic because of which and repeating basic metabolic profile again if she remains hyponatremic and the her sodium goes down below 131 will need further workup as an outpatient nephrology clinic. PHYSICAL EXAMINATION: GENERAL: The patient is alert and oriented x3, not in any acute distress. Well developed, well nourished. HEENT: Pupils are round and equally reacting to light. EOMI. No scleral icterus. No conjunctival pallor. Normocephalic, atraumatic. No pharyngeal erythema. No thyromegaly. CARDIOVASCULAR: S1 and S2 present. No murmurs, rubs, or gallops. PULMONARY: Chest is clear to auscultation, no wheezing or crackles. ABDOMEN: Soft, nontender, nondistended, normoactive bowel sounds. No palpable organomegaly. MUSCULOSKELETAL: No joint swelling or deformity. EXTREMITIES: No cyanosis, clubbing, or pedal edema. NEUROLOGICAL: Gross neurological examination did not reveal any focal deficits. SKIN: No rashes. RAssessment and Plan Plan: -Bright red blood per rectum: Probably secondary to hemorrhoids resolved now -Essential hypertension: Management as mentioned above -Urinary retention , Frazier catheter was removed and no issues with urinary retention at this time -Leukocytosis reactive -Hyponatremia etiology is not clear sodium is mildly low repeat basic metabolic profile in about 3-4 days and if it remains low will need further workup -Hyperlipidemia -Anxiety disorder Patient Condition at Discharge: Serious Plan - Discharge Summary Discharge Rx Participant: No New Discharge Prescriptions: New FLUoxetine HCL [PROzac] 10 mg PO DAILY #30 cap Lisinopril [Zestril] 10 mg PO DAILY #30 tab Continue Isosorbide Mononitrate [Imdur] 30 mg PO DAILY Carvedilol 25 mg PO BID Tolterodine Tartrate [Detrol LA] 4 mg PO DAILY Multivitamin/Iron/Folic Acid [Centrum Complete Multivit Tab] 1 tab PO DAILY Ezetimibe/Simvastatin [Vytorin 10-20 mg Tablet] 1 tab PO HS Cholecalciferol [Vitamin D3 (25 Mcg = 1000 Iu)] 1,000 unit PO DAILY Aspirin EC [Ecotrin Low Dose] 81 mg PO DAILY Cyanocobalamin (Vitamin B-12) [Vitamin B-12] 1,000 mcg PO DAILY Discontinued LORazepam [Ativan] 1 mg PO BID cloNIDine HCL [Catapres] 0.2 mg PO BID Discharge Medication List Carvedilol 25 mg PO BID 12/18/13 [History] Isosorbide Mononitrate [Imdur] 30 mg PO DAILY 12/18/13 [History] Multivitamin/Iron/Folic Acid [Centrum Complete Multivit Tab] 1 tab PO DAILY 11/17/15 [History] Tolterodine Tartrate [Detrol LA] 4 mg PO DAILY 11/17/15 [History] Ezetimibe/Simvastatin [Vytorin 10-20 mg Tablet] 1 tab PO HS 11/17/17 [History] Cholecalciferol [Vitamin D3 (25 Mcg = 1000 Iu)] 1,000 unit PO DAILY 07/16/18 [History] Aspirin EC [Ecotrin Low Dose] 81 mg PO DAILY 09/16/18 [History] Cyanocobalamin (Vitamin B-12) [Vitamin B-12] 1,000 mcg PO DAILY 09/20/18 [History] FLUoxetine HCL [PROzac] 10 mg PO DAILY #30 cap 11/09/18 [Rx] Lisinopril [Zestril] 10 mg PO DAILY #30 tab 11/09/18 [Rx] Follow up Appointment(s)/Referral(s): Alejandro Shabazz DO [Primary Care Provider] - 3 Days (will see at [facility]) Ambulatory/Diagnostic Orders: Basic Metabolic Panel [LAB.AMB] Time Frame: 3 Days, Location: None Selected Patient Instructions/Handouts: Gastrointestinal Bleeding (DC), Hypertension (DC) Activity/Diet/Wound Care/Special Instructions: [facility] will transport Discharge Disposition: HOME SELF-CARE
== END 2018-11-09 15:44 | disposition home or self-care (01) | DRG 394 ==
LOC: EC 05:39 → 3SCARD 06:03
PROVIDERS: ADMIT Hospitalist; ATTEND Hospitalist
DX: K64.9 Unspecified hemorrhoids (principal); E87.1 Hypo-osmolality and hyponatremia; D72.829 Elevated white blood cell count, unspecified; E78.5 Hyperlipidemia, unspecified; F41.9 Anxiety disorder, unspecified; I10 Essential (primary) hypertension; I25.2 Old myocardial infarction; K21.9 Gastro-esophageal reflux disease without esophagitis; M19.041 Primary osteoarthritis, right hand; M19.042 Primary osteoarthritis, left hand; G89.29 Other chronic pain; K57.90 Diverticulosis of intestine, part unspecified, without perforation or abscess without bleeding; M47.9 Spondylosis, unspecified; Z79.82 Long term (current) use of aspirin; Z79.899 Other long term (current) drug therapy; Z88.5 Allergy status to narcotic agent; Z86.73 Personal history of transient ischemic attack (TIA), and cerebral infarction without residual deficits; Z87.440 Personal history of urinary (tract) infections; Z90.49 Acquired absence of other specified parts of digestive tract; Z90.710 Acquired absence of both cervix and uterus; Z98.1 Arthrodesis status; Z87.891 Personal history of nicotine dependence; Z96.1 Presence of intraocular lens; Z98.41 Cataract extraction status, right eye; Z98.42 Cataract extraction status, left eye; Z82.49 Family history of ischemic heart disease and other diseases of the circulatory system
CPT/HCPCS: 36415; 80048; 80053; 82272; 83605; 84484; 85025; 85027; 85730; 86850; 86900; 86901; 93005; 96361; 96374; 99284

== ENCOUNTER 2018-12-26 11:08 | Observation (INO) | payer MEDICARE, BC ==
--- NOTE | 2018-12-26 11:34 | ED ---
Weakness HPI - General Chief complaint: Weakness Stated complaint: Weakness Time Seen by Provider: 12/26/18 11:10 Source: EMS Mode of arrival: EMS Limitations: no limitations - History of Present Illness Initial comments: The patient is an 88-year-old female presents to the emergency room with reported generalized weakness. Patient reports that she was recently hospitalized in October. She had pneumonia and was treated for a fractured pelvis. States she went to rehab and then stayed at her daughter's house for 3 weeks. Has only been home for 2 weeks. Throughout this time frame, she has had intermittent diarrhea. Also reports to continue generalized weakness. Today the patient was assisted to the bathroom by her . She ended up having a large bowel movement. states that she became less responsive. He was unable to get her up from the toilet and therefore called EMS. EMS arrived and stated that the patient's blood pressure was low. They reported that it was 80/40 systolic. They did give her a 500 mL bag of normal saline. Patient arrives and is normotensive. Upon reviewing the patient's chart it does demonstrate that she was previously here for bright red blood per rectum. When questioning the patient and her about this they deny that the patient has had any rectal bleeding. They deny any current hematochezia or melanotic stools. She is not currently on any antibiotics. No recent travel. Denies any abdominal pain. No nausea, vomiting, fevers or chills. Denies any urinary changes to include dysuria, hematuria or difficulty voiding. Admits to a poor appetite. States this has been chronic for her. Does report an 8 pound weight loss. Admits to persistent cough which is nonproductive. Denies any chest pain or shortness of breath. There are no other alleviating, precipitating or modify ing factors - Related Data Home Medications Medication Instructions Recorded Confirmed Carvedilol 25 mg PO BID 12/18/13 12/26/18 Isosorbide Mononitrate [Imdur] 30 mg PO DAILY 12/18/13 12/26/18 Multivitamin/Iron/Folic Acid 1 tab PO DAILY 11/17/15 12/26/18 [Centrum Complete Multivit Tab] Cholecalciferol [Vitamin D3 (25 1,000 unit PO DAILY 07/16/18 12/26/18 Mcg = 1000 Iu)] Aspirin EC [Ecotrin Low Dose] 81 mg PO DAILY 09/16/18 12/26/18 Cyanocobalamin (Vitamin B-12) 1,000 mcg PO DAILY 09/20/18 12/26/18 [Vitamin B-12] ALPRAZolam [Xanax] 0.5 mg PO TID PRN 12/26/18 12/26/18 Eplerenone 25 mg PO DAILY 12/26/18 12/26/18 Ezetimibe [Zetia] 10 mg PO HS 12/26/18 12/26/18 LORazepam [Ativan] 1 mg PO BID 12/26/18 12/26/18 Simvastatin [Zocor] 20 mg PO HS 12/26/18 12/26/18 cloNIDine HCL 0.3 mg PO BID 12/26/18 12/26/18 Previous Rx's Medication Instructions Recorded Ciprofloxacin HCl [Cipro] 500 mg PO BID #14 tab 12/28/18 metroNIDAZOLE [Flagyl] 500 mg PO TID #21 tab 12/28/18 Allergies Allergy/AdvReac Type Severity Reaction Status Date / Time oxycodone [From Percocet] Allergy Unknown Verified 12/26/18 11:34 codeine AdvReac Nausea & Verified 12/26/18 11:34 Vomiting meperidine HCl [From Demerol] AdvReac Nausea & Verified 12/26/18 11:34 Vomiting morphine AdvReac Nausea & Verified 12/26/18 11:34 Vomiting Review of Systems ROS Statement: Those systems with pertinent positive or pertinent negative responses have been documented in the HPI. ROS Other: All systems not noted in ROS Statement are negative. Past Medical History Past Medical History: Chest Pain / Angina, CVA/TIA, GERD/Reflux, Hyperlipidemia, Hypertension, Myocardial Infarction ([place]), Pneumonia, Syncope Additional Past Medical History / Comment(s): Past syncopal episodes, TIAs, UTIs, DJD spin, chronic back pain, arthritis hands, diverticular disease. Last Myocardial Infarction Date:: 11/16/2010 History of Any Multi-Drug Resistant Organisms: None Reported Past Surgical History: Adenoidectomy, Appendectomy, Back Surgery, Cholecystectomy, Heart Catheterization, Hysterectomy, Tonsillectomy Additional Past Surgical History / Comment(s): cardiac caths in 2010 and 2013, back fusion/discectomy, colonoscopy, bilateral cataract removal with lens implants, Past Anesthesia/Blood Transfusion Reactions: Postoperative Nausea & Vomiting (PONV) Past Psychological History: Anxiety Smoking Status: Former smoker Past Alcohol Use History: None Reported Past Drug Use History: None Reported - Past Family History Father Additional Family Medical History / Comment(s): Father at the age of 57yrs with "heart problems". Mother Additional Family Medical History / Comment(s): Mother had an enlarged heart. She at the age of 79yrs. General Exam Limitations: no limitations General appearance: alert, in no apparent distress, other (covered in feces) Head exam: Present: atraumatic, normocephalic, normal inspection Eye exam: Present: normal appearance, PERRL, EOMI. Absent: scleral icterus, conjunctival injection, periorbital swelling ENT exam: Present: normal exam, mucous membranes moist Neck exam: Present: normal inspection. Absent: tenderness, meningismus, lymphadenopathy Respiratory exam: Present: normal lung sounds bilaterally. Absent: respiratory distress, wheezes, rales, rhonchi, stridor Cardiovascular Exam: Present: regular rate, normal rhythm, normal heart sounds. Absent: systolic murmur, diastolic murmur, rubs, gallop, clicks GI/Abdominal exam: Present: soft, normal bowel sounds. Absent: distended, tenderness, guarding, rebound, rigid Extremities exam: Present: normal inspection, full ROM, normal capillary refill. Absent: tenderness, pedal edema, joint swelling, calf tenderness Back exam: Present: normal inspection Neurological exam: Present: alert, oriented X3, CN II-XII intact Psychiatric exam: Present: normal affect, normal mood Skin exam: Present: warm, dry, intact, normal color. Absent: rash Course Vital Signs 12/26/18 12/26/18 12/26/18 11:10 11:52 12:00 Temperature 97.7 F Pulse Rate 63 61 Respiratory 20 16 Rate Blood Pressure 143/108 147/67 O2 Sat by Pulse 98 97 Oximetry 12/26/18 12/26/18 12:30 13:01 Temperature Pulse Rate 60 56 L Respiratory 21 18 Rate Blood Pressure 153/69 166/154 O2 Sat by Pulse 98 96 Oximetry EKG Findings - EKG Comments: EKG Findings:: EKG demonstrated normal sinus rhythm with a ventricular rate of 60. DC interval 196. QRS 86. QTC 448. There is J-point elevation in leads 2, 3, aVF, V2 through V6. There are no reciprocal changes. No acute ST segment elevations concerning for ischemia or infarction. Procedures - Stool Hemoccult Hemoccult result: negative Medical Decision Making - Medical Decision Making Upon arrival the patient was placed in room 5. A thorough history and physical exam was performed. I did perform a rectal exam which demonstrates brown colored stool. no gross bloody stools. A 12-lead EKG was performed. Peripheral IV had been started by EMS. She did get the remainder of the 500 mL bag however was saline locked afterwards. I did order laboratory studies, chest x-ray and a CT of the patient's abdomen and pelvis. I discussed the case with the patient's who does present to bedside. He denies any syncopal episodes. Reports that the patient did not injure herself from the fall today. Laboratory studies demonstrated a hemoglobin of 9.5. Sodium 133, creatinine 1.09. Previous creatinine in October was 0.6. Fecal occult is negative. CT of the abdomen and pelvis demonstrates destructive lesion of the sacrum which has progressed from previous. Diffuse thickening of the colon with possible pancolitis. Mild bronchiectasis in the left lower lobe. 9 mm splenic artery aneurysm. Chest x- ray demonstrates COPD. I did blood cultures. The patient was given a dose of Zosyn. I did recommend hospital admission for which patient did agree. I did call discuss case with Dr. Vázquez accepted admission for the patient. I will consult Dr. pressley. The patient remained in stable condition was transported to the floor - Lab Data Result diagrams: 12/27/18 06:37 12/27/18 06:37 Lab Results 12/26/18 12/26/18 12/26/18 Range/Units 11:39 11:39 11:39 WBC 6.6 (3.8-10.6) k/uL RBC 3.33 L (3.80-5.40) m/uL Hgb 9.5 L (11.4-16.0) gm/dL Hct 30.9 L (34.0-46.0) % MCV 92.6 (80.0-100.0) fL MCH 28.6 (25.0-35.0) pg MCHC 30.9 L (31.0-37.0) g/dL RDW 14.0 (11.5-15.5) % Plt Count 228 (150-450) k/uL Neutrophils % 68 % Lymphocytes % 20 % Monocytes % 5 % Eosinophils % 5 % Basophils % 1 % Neutrophils # 4.5 (1.3-7.7) k/uL Lymphocytes # 1.3 (1.0-4.8) k/uL Monocytes # 0.3 (0-1.0) k/uL Eosinophils # 0.3 (0-0.7) k/uL Basophils # 0.1 (0-0.2) k/uL PT (9.0-12.0) sec INR (<1.2) APTT (22.0-30.0) sec Sodium (137-145) mmol/L Potassium (3.5-5.1) mmol/L Chloride (98-107) mmol/L Carbon Dioxide (22-30) mmol/L Anion Gap mmol/L BUN (7-17) mg/dL Creatinine (0.52-1.04) mg/dL Est GFR (CKD-EPI)AfAm (>60 ml/min/1.73 sqM) Est GFR (CKD-EPI)NonAf (>60 ml/min/1.73 sqM) Glucose (74-99) mg/dL Plasma Lactic Acid Romeo 1.2 (0.7-2.0) mmol/L Calcium (8.4-10.2) mg/dL Iron (50-170) ug/dL TIBC (228-460) ug/dL Iron Saturation (12.00-45.00) Total Bilirubin (0.2-1.3) mg/dL AST (14-36) U/L ALT (9-52) U/L Alkaline Phosphatase (38-126) U/L Creatine Kinase (30-135) U/L Total Protein (6.3-8.2) g/dL Albumin (3.5-5.0) g/dL Stool Occult Blood Negative (Negative) 12/26/18 12/26/18 12/26/18 Range/Units 11:39 11:39 11:39 WBC (3.8-10.6) k/uL RBC (3.80-5.40) m/uL Hgb (11.4-16.0) gm/dL Hct (34.0-46.0) % MCV (80.0-100.0) fL MCH (25.0-35.0) pg MCHC (31.0-37.0) g/dL RDW (11.5-15.5) % Plt Count (150-450) k/uL Neutrophils % % Lymphocytes % % Monocytes % % Eosinophils % % Basophils % % Neutrophils # (1.3-7.7) k/uL Lymphocytes # (1.0-4.8) k/uL Monocytes # (0-1.0) k/uL Eosinophils # (0-0.7) k/uL Basophils # (0-0.2) k/uL PT 10.0 (9.0-12.0) sec INR 0.9 (<1.2) APTT 18.5 L (22.0-30.0) sec Sodium 133 L (137-145) mmol/L Potassium 4.5 (3.5-5.1) mmol/L Chloride 102 (98-107) mmol/L Carbon Dioxide 27 (22-30) mmol/L Anion Gap 4 mmol/L BUN 19 H (7-17) mg/dL Creatinine 1.09 H (0.52-1.04) mg/dL Est GFR (CKD-EPI)AfAm 53 (>60 ml/min/1.73 sqM) Est GFR (CKD-EPI)NonAf 46 (>60 ml/min/1.73 sqM) Glucose 138 H (74-99) mg/dL Plasma Lactic Acid Romeo (0.7-2.0) mmol/L Calcium 8.4 (8.4-10.2) mg/dL Iron 43 L (50-170) ug/dL TIBC 254 (228-460) ug/dL Iron Saturation 16.93 (12.00-45.00) Total Bilirubin 0.3 (0.2-1.3) mg/dL AST 21 (14-36) U/L ALT 18 (9-52) U/L Alkaline Phosphatase 76 (38-126) U/L Creatine Kinase 25 L (30-135) U/L Total Protein 5.5 L (6.3-8.2) g/dL Albumin 2.8 L (3.5-5.0) g/dL Stool Occult Blood (Negative) Disposition Clinical Impression: Acute renal failure, Diarrhea, Pancolitis Disposition: ADMITTED IP TO THIS HOSP Condition: Stable Is patient prescribed a controlled substance at d/c from ED?: No Decision to Admit Reason: Admit from EC Decision Date: 12/26/18 Decision Time: 13:45
[2018-12-26 11:49] LABS: Basophils # (A) 0.1 k/uL (0-0.2); Basophils % (A) 1 %; Eosinophils # (A) 0.3 k/uL (0-0.7); Eosinophils % (A) 5 %; HCT 30.9 % (34.0-46.0); HGB 9.5 gm/dL (11.4-16.0); Lymphocytes # (A) 1.3 k/uL (1.0-4.8); Lymphocytes % (A) 20 %; MCH 28.6 pg (25.0-35.0); MCHC 30.9 g/dL (31.0-37.0); MCV 92.6 fL (80.0-100.0); Mean Platelet Volume 6.8; Monocytes # (A) 0.3 k/uL (0-1.0); Monocytes % (A) 5 %; Neutrophils # (A) 4.5 k/uL (1.3-7.7); Neutrophils % (A) 68 %; Platelet Count 228 k/uL (150-450); RBC 3.33 m/uL (3.80-5.40); WBC 6.6 k/uL (3.8-10.6)
[2018-12-26 12:04] LABS: Albumin 2.8 g/dL (3.5-5.0); Calcium 8.4 mg/dL (8.4-10.2); Potassium 4.5 mmol/L (3.5-5.1); Total Bilirubin 0.3 mg/dL (0.2-1.3); Total Protein 5.5 g/dL (6.3-8.2)
[2018-12-26 12:08] LABS: INR 0.9 (<1.2)
[2018-12-26 12:09] LABS: Partial Thromboplastin Time 18.5 sec (22.0-30.0)
--- NOTE | 2018-12-26 12:20 | XR ---
EXAMINATION TYPE: XR chest 2V DATE OF EXAM: 12/26/2018 HISTORY: Cough/pain. REFERENCE: Previous study dated 09/21/2018. FINDINGS: The lungs are overinflated. There is some scarring in the left upper lobe. The heart is not enlarged. Pleural spaces are clear. IMPRESSION: COPD.
[2018-12-26] MEDS ORDERED: SODIUM CHLORIDE 0.9% 500 ML 500 ML IV ONE (12:42)
--- NOTE | 2018-12-26 12:58 | CT ---
EXAMINATION TYPE: CT abdomen pelvis w con DATE OF EXAM: 12/26/2018 REFERENCE: Previous study dated 09/20/2018 HISTORY: pain HISTORY: Pain REFERENCE: NONE CT DLP: 589.2 mGy Automated exposure control for dose reduction was used. TECHNIQUE: Helical acquisition through the abdomen and pelvis was obtained following the oral ingesti on of without Oral Contrast and following intravenous administration of 100 mL of Isovue 300. The dayron a was reformatted in axial, coronal and sagittal projections. FINDINGS: There is dependent atelectasis in the dependent portions of the lungs. There is minimal br onchiectasis in the left lower lobe. There is some scarring or atelectasis in the right middle lobe. There is no pleural or pericardial fluid. Heart size is upper limits of normal. Within the abdomen, the gallbladder has been removed. The liver and spleen are unremarkable. There is a 9 mm calcified splenic artery aneurysm. Both adrenal glands are normal. Both kidneys demonstrate function and appear morphologically normal. The pancreas is unremarkable. There is moderate atheromatous calcification of the visualized arterial tree. There is no significant retroperitoneal, iliac or inguinal adenopathy. The uterus and ovaries are not visualized. There are scattered diverticula throughout the sigmoid region. There is colonic wall thickening throu ghout much of the sigmoid colon, descending colon, transverse colon and ascending colon. Small bowel caliber is normal. There is no free air and no significant free fluid. There is a permeative and somewhat moth-eaten appearance to the sacrum. There has been a previous bon y fusion extending from L3 to S1. The sacral lesions appear to have progressed. IMPRESSION: 1. DESTRUCTIVE LESION OF THE SACRUM WHICH HAS PROGRESSED FROM PREVIOUS. 2. DIFFUSE THICKENING OF THE COLON. PLEASE CORRELATE FOR COLITIS. 3. MILD BRONCHIECTASIS IN THE LEFT LOWER LOBE. 4. 9 MM SPLENIC ARTERY ANEURYSM.
[2018-12-26] MEDS ORDERED: NALOXONE 0.4 MG/ML 1 ML VIAL IV PRN (13:41)
[2018-12-26] MEDS ORDERED: ALPRAZolam 0.5 MG TAB PO PRN (13:43)
[2018-12-26] MEDS: SODIUM CHLORIDE 0.9% 1,000 ML IV SCH (15:14)
[2018-12-26] MEDS: CARVEDILOL 12.5 MG TAB PO SCH (15:14)
[2018-12-26] MEDS: metroNIDAZOLE-NS PMX 500 MG in SALINE 1 100ML.BAG IVPB SCH ×2 (15:14→23:09)
[2018-12-26] MEDS ORDERED: PIPERACILLIN-TAZOBACTAM 3.375 GM in SODIUM CHLORIDE 0.9% 100 ML IVPB SCH (16:00)
--- NOTE | 2018-12-26 16:09 | P.HPIM ---
History of Present Illness H&P Date: 12/26/18 Chief Complaint: Diarrhea/weakness 88-year-old female presents to the emergency room with reported generalized weakness. Patient reports that she was recently hospitalized in October. She had pneumonia and was treated for a fractured pelvis. States she went to rehab and then stayed at her daughter's house for 3 weeks. Has only been home for 2 weeks. Throughout this time frame, she has had intermittent diarrhea. Also reports to continue generalized weakness. Today the patient was assisted to the bathroom by her . She ended up having a large bowel movement. states that she became less responsive. He was unable to get her up from the toilet and therefore called EMS. EMS arrived and stated that the patient's blood pressure was low. They reported that it was 80/40 systolic. They did give her a 500 mL bag of normal saline. Patient arrives and is normotensive. Upon reviewing the patient's chart it does demonstrate that she was previously here for bright red blood per rectum. When questioning the patient and her about this they deny that the patient has had any rectal bleeding. They deny any current hematochezia or melanotic stools. She is not currently on any antibiotics. No recent travel. Denies any abdominal pain. No nausea, vomiting, fevers or chills. Denies any urinary changes to include dysuria, hematuria or difficulty voiding. Admits to a poor appetite. States this has been chronic for her. Does report an 8 pound weight loss. Admits to persistent cough which is nonproductive. Denies any chest pain or shortness of breath. There are no other alleviating, precipitating or modifying factors Review of Systems Constitutional: Denies chills, Denies fever Eyes: denies blurred vision Ears, nose, mouth and throat: Denies epistaxis Cardiovascular: Denies chest pain Respiratory: Denies cough with sputum Gastrointestinal: Reports abdominal pain, Reports diarrhea, Reports nausea, Denies vomiting Genitourinary: Denies dysuria, Denies hematuria Musculoskeletal: Denies gait dysfunction Integumentary: Denies color changes, Denies darkening of skin Neurological: Denies confusion Psychiatric: Denies anxiety Endocrine: Denies cold intolerance, Denies heat intolerance Past Medical History Past Medical History: Chest Pain / Angina, CVA/TIA, GERD/Reflux, Hyperlipidemia, Hypertension, Myocardial Infarction ([place]), Pneumonia, Syncope Additional Past Medical History / Comment(s): Past syncopal episodes, TIAs, UTIs, DJD spin, chronic back pain, arthritis hands, diverticular disease. Last Myocardial Infarction Date:: 11/16/2010 History of Any Multi-Drug Resistant Organisms: None Reported Past Surgical History: Adenoidectomy, Appendectomy, Back Surgery, Ch olecystectomy, Heart Catheterization, Hysterectomy, Tonsillectomy Additional Past Surgical History / Comment(s): cardiac caths in 2010 and 2013, back fusion/discectomy, colonoscopy, bilateral cataract removal with lens implants, Past Anesthesia/Blood Transfusion Reactions: Postoperative Nausea & Vomiting (PONV) Past Psychological History: Anxiety Smoking Status: Former smoker Past Alcohol Use History: None Reported Past Drug Use History: None Reported - Past Family History Father Additional Family Medical History / Comment(s): Father at the age of 57yrs with "heart problems". Mother Additional Family Medical History / Comment(s): Mother had an enlarged heart. She at the age of 79yrs. Medications and Allergies Home Medications Medication Instructions Recorded Confirmed Type Carvedilol 25 mg PO BID 12/18/13 12/26/18 History Isosorbide Mononitrate [Imdur] 30 mg PO DAILY 12/18/13 12/26/18 History Multivitamin/Iron/Folic Acid 1 tab PO DAILY 11/17/15 12/26/18 History [Centrum Complete Multivit Tab] Cholecalciferol [Vitamin D3 (25 1,000 unit PO DAILY 07/16/18 12/26/18 History Mcg = 1000 Iu)] Aspirin EC [Ecotrin Low Dose] 81 mg PO DAILY 09/16/18 12/26/18 History Cyanocobalamin (Vitamin B-12) 1,000 mcg PO DAILY 09/20/18 12/26/18 History [Vitamin B-12] ALPRAZolam [Xanax] 0.5 mg PO TID PRN 12/26/18 12/26/18 History Eplerenone 25 mg PO DAILY 12/26/18 12/26/18 History Ezetimibe [Zetia] 10 mg PO HS 12/26/18 12/26/18 History LORazepam [Ativan] 1 mg PO BID 12/26/18 12/26/18 History Simvastatin [Zocor] 20 mg PO HS 12/26/18 12/26/18 History cloNIDine HCL 0.3 mg PO BID 12/26/18 12/26/18 History Allergies Allergy/AdvReac Type Severity Reaction Status Date / Time oxycodone [From Percocet] Allergy Unknown Verified 12/26/18 11:34 codeine AdvReac Nausea & Verified 12/26/18 11:34 Vomiting meperidine HCl [From Demerol] AdvReac Nausea & Verified 12/26/18 11:34 Vomiting morphine AdvReac Nausea & Verified 12/26/18 11:34 Vomiting Physical Exam Vitals: Vital Signs Temp Pulse Resp BP Pulse Ox 12/26/18 13:01 56 L 18 166/154 96 12/26/18 12:30 60 21 153/69 98 12/26/18 12:00 147/67 12/26/18 11:52 61 16 97 12/26/18 11:10 97.7 F 63 20 143/108 98 Intake and Output 12/25/18 12/26/18 12/26/18 22:59 06:59 14:59 Other: Weight 53.524 kg PHYSICAL EXAMINATION: GENERAL: The patient is alert and oriented x3, not in any acute distress. Well developed, well nourished. HEENT: Pupils are round and equally reacting to light. EOMI. No scleral icterus. No conjunctival pallor. Normocephalic, atraumatic. No pharyngeal erythema. No thyromegaly. CARDIOVASCULAR: S1 and S2 present. No murmurs, rubs, or gallops. PULMONARY: Chest is clear to auscultation, no wheezing or crackles. ABDOMEN: Soft, nontender, nondistended, normoactive bowel sounds. No palpable organomegaly. MUSCULOSKELETAL: No joint swelling or deformity. EXTREMITIES: No cyanosis, clubbing, or pedal edema. NEUROLOGICAL: Gross neurological examination did not reveal any focal deficits. SKIN: No rashes. Results CBC & Chem 7: 12/26/18 11:39 12/26/18 11:39 Labs: Abnormal Lab Results - Last 24 Hours (Table) 12/26/18 12/26/18 12/26/18 Range/Units 11:39 11:39 11:39 RBC 3.33 L (3.80-5.40) m/uL Hgb 9.5 L (11.4-16.0) gm/dL Hct 30.9 L (34.0-46.0) % MCHC 30.9 L (31.0-37.0) g/dL APTT 18.5 L (22.0-30.0) sec Sodium 133 L (137-145) mmol/L BUN 19 H (7-17) mg/dL Creatinine 1.09 H (0.52-1.04) mg/dL Glucose 138 H (74-99) mg/dL Creatine Kinase 25 L (30-135) U/L Total Protein 5.5 L (6.3-8.2) g/dL Albumin 2.8 L (3.5-5.0) g/dL Assessment and Plan Assessment: 1. Intractable diarrhea/pancolitis - Start patient on IV fluids normal saline at a rate of 50 mL an hour; patient is started on IV Levaquin and Flagyl per GI recommendations - Consult GI for further evaluation 2. Accelerated hypertension; we will restart patient on home antihypertensive therapy; we will add hydralazine 10 mg every 4 hours when necessary for systolic blood pressure greater than 160 3. Acute renal injury/dehydration; slow IV fluid hydration in form of normal saline at a rate of 50 mL an hour; monitor strict JOE's, renal function and electrolytes; avoid hypotension and nephrotoxins 4. Hyponatremia; possibly secondary to dehydration; continue with normal saline at rate of 50 mL an hour; monitor lactic lites closely and supplement as needed 5. Mild hyperglycemia; no history of diabetes; monitor Accu-Cheks every before meals and at bedtime when necessary 6. Anemia; question chronic anemia; we will hold off on aspirin and monitor stool occult blood and H&H; we will order stool and iron studies and supplement as needed 7. Hyperlipidemia; continue with home statin therapy 8. DVT prophylaxis; SCDs only CODE STATUS; full code Time with Patient: Greater than 30
[2018-12-26] MEDS: hydrALAZINE HCL 20 MG/ML 1 ML VIAL IVP PRN (17:03)
[2018-12-26 17:52] LABS: Appearance,Urine Clear (Clear); Bilirubin,Urine Negative (Negative); Blood,Urine Negative (Negative); Color,Urine Light Yellow; Glucose,Urine (UA) Negative (Negative); Hyaline Casts,Urine 1 /lpf (0-2); Ketones,Urine Negative (Negative); Leukocyte Esterase,Urine Negative (Negative); Mucus,Urine Rare /hpf; Nitrite,Urine Negative (Negative); Protein,Urine 1+ (Negative); RBC,Urine 1 /hpf (0-5); Specific Gravity,Urine 1.017 (1.001-1.035); Urobilinogen,Urine <2.0 mg/dL (<2.0); WBC,Urine 2 /hpf (0-5)
[2018-12-26] MEDS: cloNIDine HCL 0.1 MG TAB PO SCH (20:29)
[2018-12-26] MEDS: EZETIMIBE 10 MG TAB PO SCH (20:29)
[2018-12-26] MEDS: ATORVASTATIN 10 MG TAB PO SCH (20:29)
[2018-12-26] MEDS: CIPROFLOXACIN HCL 500 MG TAB PO SCH (20:29)
[2018-12-26] MEDS: LORazepam 1 MG TAB PO SCH (20:32)
--- NOTE | 2018-12-26 23:24 | P.CONS ---
History of Present Illness - Reason for Consult Consult date: 12/26/18 Pancolitis Requesting physician: Charla Bronson - Chief Complaint Diarrhea - History of Present Illness 88-year-old female with a medical history significant for CVA/TIA, GERD, hypertension and hyperlipidemia with recent hospitalizations for pneumonia and a fractured pelvis who presents to the hospital due to altered mental status and diarrhea. The patient reports that she was in her kitchen when she felt a sensation of needing to have a bowel movement. Her came home and brought her to the bathroom she subsequently had a large watery loose bowel movement. No blood or black tarry stools reported. The patient reports that at that time her was asking her questions however her mentation was poor. The patient denies any abdominal pain, or nausea or vomiting. No similar symptoms in the past. The patient was previously treated with antibiotic th erapy for treatment of her pneumonia. On presentation computed tomography scan of the abdomen was significant for pancolitis. WBC 6.6, hemoglobin 9.5, platelet count 228, normal liver enzymes, stool testing was negative for blood. Review of Systems REVIEW OF SYSTEMS: CONSTITUTIONAL: Denies any fevers, chills, weight change or fatigue. CARDIOVASCULAR: Denies any chest pain, palpitations high or low blood pressures RESPIRATORY: Denies any shortness of breath, hemoptysis or cough. GENITOURINARY: No dysuria or hematuria. MUSCULOSKELETAL: No weakness reported. SKIN: Denies any new rashes or lesions, jaundice or pallor. PSYCHIATRIC: Denies any depression or anxiety. NEUROLOGY: Denies headache, denies any new focal deficits. EARS/NOSE/THROAT: No recent hearing change, congestion, nasal discharge or sore throat. EYES: No pain in eyes, discharge or change in vision. GASTROINTESTINAL: As per HPI. Past Medical History Past Medical History: Chest Pain / Angina, CVA/TIA, GERD/Reflux, Hyperlipidemia, Hypertension, Myocardial Infarction (MS), Pneumonia, Syncope Additional Past Medical History / Comment(s): Past syncopal episodes, TIAs, UTIs, DJD spin, chronic back pain, arthritis hands, diverticular disease. Last Myocardial Infarction Date:: 11/16/2010 History of Any Multi-Drug Resistant Organisms: None Reported Past Surgical History: Adenoidectomy, Appendectomy, Back Surgery, Cho lecystectomy, Heart Catheterization, Hysterectomy, Tonsillectomy Additional Past Surgical History / Comment(s): cardiac caths in 2010 and 2013, back fusion/discectomy, colonoscopy, bilateral cataract removal with lens implants, Past Anesthesia/Blood Transfusion Reactions: Postoperative Nausea & Vomiting (PONV) Past Psychological History: Anxiety Smoking Status: Former smoker Past Alcohol Use History: None Reported Past Drug Use History: None Reported - Past Family History Father Additional Family Medical History / Comment(s): Father at the age of 57yrs with "heart problems". Mother Additional Family Medical History / Comment(s): Mother had an enlarged heart. She at the age of 79yrs. Medications and Allergies Home Medications Medication Instructions Recorded Confirmed Type Carvedilol 25 mg PO BID 12/18/13 12/26/18 History Isosorbide Mononitrate [Imdur] 30 mg PO DAILY 12/18/13 12/26/18 History Multivitamin/Iron/Folic Acid 1 tab PO DAILY 11/17/15 12/26/18 History [Centrum Complete Multivit Tab] Cholecalciferol [Vitamin D3 (25 1,000 unit PO DAILY 07/16/18 12/26/18 History Mcg = 1000 Iu)] Aspirin EC [Ecotrin Low Dose] 81 mg PO DAILY 09/16/18 12/26/18 History Cyanocobalamin (Vitamin B-12) 1,000 mcg PO DAILY 09/20/18 12/26/18 History [Vitamin B-12] ALPRAZolam [Xanax] 0.5 mg PO TID PRN 12/26/18 12/26/18 History Eplerenone 25 mg PO DAILY 12/26/18 12/26/18 History Ezetimibe [Zetia] 10 mg PO HS 12/26/18 12/26/18 History LORazepam [Ativan] 1 mg PO BID 12/26/18 12/26/18 History Simvastatin [Zocor] 20 mg PO HS 12/26/18 12/26/18 History cloNIDine HCL 0.3 mg PO BID 12/26/18 12/26/18 History Allergies Allergy/AdvReac Type Severity Reaction Status Date / Time oxycodone [From Percocet] Allergy Unknown Verified 12/26/18 11:34 codeine AdvReac Nausea & Verified 12/26/18 11:34 Vomiting meperidine HCl [From Demerol] AdvReac Nausea & Verified 12/26/18 11:34 Vomiting morphine AdvReac Nausea & Verified 12/26/18 11:34 Vomiting Physical Exam Vitals: Vital Signs Temp Pulse Pulse Resp BP BP Pulse Ox 12/26/18 21:00 97.7 F 77 18 177/67 94 L 12/26/18 16:32 202/66 12/26/18 14:39 97.5 F L 65 16 239/83 97 12/26/18 13:01 56 L 18 166/154 96 12/26/18 12:30 60 21 153/69 98 12/26/18 12:00 147/67 12/26/18 11:52 61 16 97 12/26/18 11:10 97.7 F 63 20 143/108 98 Intake and Output 12/26/18 12/26/18 12/27/18 14:59 22:59 06:59 Intake Total 300 Balance 300 Intake: Oral 300 Other: Voiding Method Toilet # Voids 1 # Bowel Movements 1 Weight 53.524 kg On physical examination, patient appears comfortable in no apparent distress. HEAD: Normocephalic, atraumatic. EYES: No scleral icterus. No conjunctival injection. MOUTH: No lesions, tongue midline. NECK: Trachea midline, no gross abnormalities. CHEST: Clear to auscultation with no wheezing or rhonchi appreciated. HEART: Regular rate and rhythm. ABDOMEN: Soft, nontender to palpation. Bowel sounds are positive. No organomegaly. No guarding or rigidity. EXTREMITIES: No pedal edema. SKIN: No rashes, no jaundice. NEUROLOGIC: Alert and oriented. No focal deficits. Results CBC & Chem 7: 12/26/18 11:39 12/26/18 11:39 Labs: Abnormal Lab Results - Last 24 Hours (Table) 12/26/18 12/26/18 12/26/18 Range/Units 11:39 11:39 11:39 RBC 3.33 L (3.80-5.40) m/uL Hgb 9.5 L (11.4-16.0) gm/dL Hct 30.9 L (34.0-46.0) % MCHC 30.9 L (31.0-37.0) g/dL APTT 18.5 L (22.0-30.0) sec Sodium 133 L (137-145) mmol/L BUN 19 H (7-17) mg/dL Creatinine 1.09 H (0.52-1.04) mg/dL Glucose 138 H (74-99) mg/dL Creatine Kinase 25 L (30-135) U/L Total Protein 5.5 L (6.3-8.2) g/dL Albumin 2.8 L (3.5-5.0) g/dL Urine Protein (Negative) Urine Mucus (None) /hpf 12/26/18 Range/Units 17:30 RBC (3.80-5.40) m/uL Hgb (11.4-16.0) gm/dL Hct (34.0-46.0) % MCHC (31.0-37.0) g/dL APTT (22.0-30.0) sec Sodium (137-145) mmol/L BUN (7-17) mg/dL Creatinine (0.52-1.04) mg/dL Glucose (74-99) mg/dL Creatine Kinase (30-135) U/L Total Protein (6.3-8.2) g/dL Albumin (3.5-5.0) g/dL Urine Protein 1+ H (Negative) Urine Mucus Rare H (None) /hpf CT scan - abdomen: report reviewed (Computed tomography scan of the abdomen significant for pancolitis, with other changes also noted.) Assessment and Plan (1) Pancolitis Narrative/Plan: 88-year-old female with multiple medical comorbidities, and recent hospitalizations with treatment of pneumonia and pelvic fracture who presents to the hospital due to altered mental status and a large nonbloody bowel movement. The patient does report recent antibiotic treatment for her pneumonia but denies any sick contacts, or unusual foods or travel. She had one large nonbloody bowel movement which time she reports her was talking to her and she was not fully responsive. No further bowel movements reported. Computed tomography scan of the abdomen did show a pancolitis. No leukocytosis was noted. Patient does have a normocytic anemia with stool testing negative for blood. Unclear etiology with concern for C. diff colitis in the setting of antibiotic therapy and hospitalization, may also represent other infectious etiology with ischemic colitis and inflammatory process less likely given the patient's presentation. Current Visit: Yes Status: Acute Code(s): K51.00 - ULCERATIVE (CHRONIC) PANCOLITIS WITHOUT COMPLICATIONS SNOMED Code(s): 225867520 (2) Diarrhea Current Visit: Yes Status: Acute Code(s): R19.7 - DIARRHEA, UNSPECIFIED SNOMED Code(s): 96891425 Plan: Supportive care Okay for diet Continue to monitor stool output Stool testing for clostridium difficile pending If further loose stool occurs will order extensive studies Continue treatment with antibiotic therapy, Zosyn has been changed to Flagyl and ciprofloxacin due to concern over possible C. diff colitis Thank you for allowing us to participate in the care of the patient, the GI service will continue to follow
[2018-12-27] MEDS: hydrALAZINE HCL 20 MG/ML 1 ML VIAL IVP PRN ×2 (02:29→22:37)
[2018-12-27 07:17] LABS: Basophils % (A) 1 %; Eosinophils # (A) 0.4 k/uL (0-0.7); Eosinophils % (A) 5 %; HGB 9.4 gm/dL (11.4-16.0); Hypochromasia Slight; Lymphocytes # (A) 2.2 k/uL (1.0-4.8); Lymphocytes % (A) 30 %; MCH 28.8 pg (25.0-35.0); MCHC 30.3 g/dL (31.0-37.0); Mean Platelet Volume 7.4; Monocytes # (A) 0.5 k/uL (0-1.0); Monocytes % (A) 7 %; Neutrophils # (A) 3.9 k/uL (1.3-7.7); Neutrophils % (A) 54 %; Platelet Count 259 k/uL (150-450); RBC 3.27 m/uL (3.80-5.40); RDW 13.9 % (11.5-15.5); WBC 7.2 k/uL (3.8-10.6)
[2018-12-27 07:37] LABS: Calcium 8.6 mg/dL (8.4-10.2); Potassium 4.2 mmol/L (3.5-5.1)
[2018-12-27] MEDS: ASPIRIN 81 MG PO SCH (07:39)
[2018-12-27] MEDS: CARVEDILOL 12.5 MG TAB PO SCH ×2 (07:39→17:31)
[2018-12-27] MEDS: metroNIDAZOLE-NS PMX 500 MG in SALINE 1 100ML.BAG IVPB SCH ×2 (07:39→15:25)
[2018-12-27] MEDS: cloNIDine HCL 0.1 MG TAB PO SCH ×2 (07:39→20:42)
[2018-12-27] MEDS: LORazepam 1 MG TAB PO SCH ×3 (07:39→20:42)
[2018-12-27] MEDS: CIPROFLOXACIN HCL 500 MG TAB PO SCH ×2 (07:39→20:42)
[2018-12-27] MEDS: ISOSORBIDE MONONITRATE ER 30 MG TAB.ER.24H PO SCH (07:39)
[2018-12-27 10:32] VITALS: BMI 23.0
[2018-12-27] MEDS: SODIUM CHLORIDE 0.9% 1,000 ML IV SCH (12:29)
--- NOTE | 2018-12-27 12:43 | P.PN ---
Subjective Progress Note Date: 12/27/18 Principal diagnosis: Pancolitis Accelerated hypertension Acute renal injury/dehydration 88-year-old female with multiple medical comorbidities, and recent hospitalizations with treatment of pneumonia and pelvic fracture who presents to the hospital due to altered mental status and a large nonbloody bowel movement. Computed tomography scan of the abdomen did show a pancolitis. No leukocytosis was noted. Patient does have a normocytic anemia with stool testing negative for blood. Unclear etiology with concern for C. diff colitis in the setting of antibiotic therapy and hospitalization, may also represent other infectious etiology with ischemic colitis and inflammatory process less likely given the patient's presentation. GI was consulted and IV antibiotics were switched from Zosyn to Flagyl and ciprofloxacin due to possibility of C. diff colitis Objective - Vital Signs Vital signs: Vital Signs Temp 97.2 F L 12/27/18 05:00 Pulse 75 12/27/18 05:00 Resp 18 12/27/18 08:00 BP 183/62 12/27/18 05:00 Pulse Ox 95 12/27/18 05:00 Intake & Output 12/26/18 12/27/18 12/27/18 18:59 06:59 18:59 Intake Total 700 Balance 700 Weight 53.524 kg 53.524 kg Intake: Oral 700 Other: Voiding Method Toilet Toilet Toilet # Voids 2 1 # Bowel Movements 1 - Exam PHYSICAL EXAMINATION: GENERAL: The patient is alert and oriented x3, not in any acute distress. Well developed, well nourished. HEENT: Pupils are round and equally reacting to light. EOMI. No scleral icterus. No conjunctival pallor. Normocephalic, atraumatic. No pharyngeal erythema. No thyromegaly. CARDIOVASCULAR: S1 and S2 present. No murmurs, rubs, or gallops. PULMONARY: Chest is clear to auscultation, no wheezing or crackles. ABDOMEN: Soft, nontender, nondistended, normoactive bowel sounds. No palpable organomegaly. MUSCULOSKELETAL: No joint swelling or deformity. EXTREMITIES: No cyanosis, clubbing, or pedal edema. NEUROLOGICAL: Gross neurological examination did not reveal any focal deficits. - Labs CBC & Chem 7: 12/27/18 06:37 12/27/18 06:37 Labs: Abnormal Lab Results - Last 24 Hours (Table) 12/26/18 12/26/18 12/26/18 Range/Units 11:39 11:39 11:39 RBC 3.33 L (3.80-5.40) m/uL Hgb 9.5 L (11.4-16.0) gm/dL Hct 30.9 L (34.0-46.0) % MCHC 30.9 L (31.0-37.0) g/dL APTT 18.5 L (22.0-30.0) sec Sodium 133 L (137-145) mmol/L BUN 19 H (7-17) mg/dL Creatinine 1.09 H (0.52-1.04) mg/dL Glucose 138 H (74-99) mg/dL Creatine Kinase 25 L (30-135) U/L Total Protein 5.5 L (6.3-8.2) g/dL Albumin 2.8 L (3.5-5.0) g/dL Urine Protein (Negative) Urine Mucus (None) /hpf 12/26/18 12/27/18 12/27/18 Range/Units 17:30 06:37 06:37 RBC 3.27 L (3.80-5.40) m/uL Hgb 9.4 L (11.4-16.0) gm/dL Hct 31.0 L (34.0-46.0) % MCHC 30.3 L (31.0-37.0) g/dL APTT (22.0-30.0) sec Sodium 135 L (137-145) mmol/L BUN (7-17) mg/dL Creatinine (0.52-1.04) mg/dL Glucose (74-99) mg/dL Creatine Kinase (30-135) U/L Total Protein (6.3-8.2) g/dL Albumin (3.5-5.0) g/dL Urine Protein 1+ H (Negative) Urine Mucus Rare H (None) /hpf Assessment and Plan Assessment: 1. Intractable diarrhea/pancolitis - Start patient on IV fluids normal saline at a rate of 50 mL an hour; patient is started on IV Levaquin and Flagyl per GI recommendations - Consult GI for further evaluation 2. Accelerated hypertension; we will restart patient on home antihypertensive therapy; we will add hydralazine 10 mg every 4 hours when necessary for systolic blood pressure greater than 160 3. Acute renal injury/dehydration; slow IV fluid hydration in form of normal saline at a rate of 50 mL an hour; monitor strict JOE's, renal function and electrolytes; avoid hypotension and nephrotoxins 4. Hyponatremia; possibly secondary to dehydration; continue with normal saline at rate of 50 mL an hour; monitor lactic lites closely and supplement as needed 5. Mild hyperglycemia; no history of diabetes; monitor Accu-Cheks every before meals and at bedtime when necessary 6. Anemia; question chronic anemia; we will hold off on aspirin and monitor stool occult blood and H&H; we will order stool and iron studies and supplement as needed 7. Hyperlipidemia; continue with home statin therapy 8. DVT prophylaxis; SCDs only CODE STATUS; full code Time with Patient: Greater than 30
--- NOTE | 2018-12-27 19:39 | P.PN ---
Subjective Progress Note Date: 12/27/18 Principal diagnosis: Diarrhea Patient is seen lying in bed tolerating her diet. No nausea or vomiting. No further loose stool reported. Objective - Vital Signs Vital signs: Vital Signs Temp 97.2 F L 12/27/18 05:00 Pulse 75 12/27/18 05:00 Resp 18 12/27/18 08:00 BP 183/62 12/27/18 05:00 Pulse Ox 95 12/27/18 05:00 Intake & Output 12/26/18 12/27/18 12/27/18 18:59 06:59 18:59 Intake Total 700 Balance 700 Weight 53.524 kg Intake: Oral 700 Other: Voiding Method Toilet Toilet Toilet # Voids 2 1 # Bowel Movements 1 - Exam On physical examination, patient appears comfortable in no apparent distress. HEAD: Normocephalic, atraumatic. EYES: No scleral icterus. No conjunctival injection. MOUTH: No lesions, tongue midline. NECK: Trachea midline, no gross abnormalities. ABDOMEN: Soft, obese. Bowel sounds are positive. No organomegaly. No guarding or rigidity. EXTREMITIES: No pedal edema. SKIN: No rashes, no jaundice. NEUROLOGIC: Alert and oriented x3. - Labs CBC & Chem 7: 12/27/18 06:37 12/27/18 06:37 Labs: Abnormal Lab Results - Last 24 Hours (Table) 12/26/18 12/26/18 12/26/18 Range/Units 11:39 11:39 11:39 RBC 3.33 L (3.80-5.40) m/uL Hgb 9.5 L (11.4-16.0) gm/dL Hct 30.9 L (34.0-46.0) % MCHC 30.9 L (31.0-37.0) g/dL APTT 18.5 L (22.0-30.0) sec Sodium 133 L (137-145) mmol/L BUN 19 H (7-17) mg/dL Creatinine 1.09 H (0.52-1.04) mg/dL Glucose 138 H (74-99) mg/dL Creatine Kinase 25 L (30-135) U/L Total Protein 5.5 L (6.3-8.2) g/dL Albumin 2.8 L (3.5-5.0) g/dL Urine Protein (Negative) Urine Mucus (None) /hpf 12/26/18 12/27/18 12/27/18 Range/Units 17:30 06:37 06:37 RBC 3.27 L (3.80-5.40) m/uL Hgb 9.4 L (11.4-16.0) gm/dL Hct 31.0 L (34.0-46.0) % MCHC 30.3 L (31.0-37.0) g/dL APTT (22.0-30.0) sec Sodium 135 L (137-145) mmol/L BUN (7-17) mg/dL Creatinine (0.52-1.04) mg/dL Glucose (74-99) mg/dL Creatine Kinase (30-135) U/L Total Protein (6.3-8.2) g/dL Albumin (3.5-5.0) g/dL Urine Protein 1+ H (Negative) Urine Mucus Rare H (None) /hpf Assessment and Plan (1) Pancolitis Narrative/Plan: 88-year-old female with multiple medical comorbidities, and recent hospitalizations with treatment of pneumonia and pelvic fracture who presents to the hospital due to altered mental status and a large nonbloody bowel movement. The patient does report recent antibiotic treatment for her pneumonia but denies any sick contacts, or unusual foods or travel. She had one large nonbloody bowel movement which time she reports her was talking to her and she was not fully responsive. No further bowel movements reported. Computed tomography scan of the abdomen did show a pancolitis. No leukocytosis was noted. Patient does have a normocytic anemia with stool testing negative for blood. Unclear etiology with concern for C. diff colitis in the setting of antibiotic therapy and hospitalization, may also represent other infectious etiology with ischemic colitis and inflammatory process less likely given the patient's presentation. Current Visit: Yes Status: Acute Code(s): K51.00 - ULCERATIVE (CHRONIC) PANCOLITIS WITHOUT COMPLICATIONS SNOMED Code(s): 803714463 (2) Diarrhea Current Visit: Yes Status: Acute Code(s): R19.7 - DIARRHEA, UNSPECIFIED SNOMED Code(s): 06143054 Plan: Supportive care Okay for diet Continue to monitor stool output Stool testing for clostridium difficile pending If further loose stool occurs will order extensive studies Continue broad-spectrum antibiotic therapy Thank you for allowing us to participate in the care of the patient, the GI service will continue to follow
[2018-12-27] MEDS: ATORVASTATIN 10 MG TAB PO SCH (20:42)
[2018-12-27] MEDS: EZETIMIBE 10 MG TAB PO SCH (20:43)
[2018-12-27 22:31] VITALS: RESP 22
[2018-12-28] MEDS: metroNIDAZOLE-NS PMX 500 MG in SALINE 1 100ML.BAG IVPB SCH ×2 (00:05→07:28)
[2018-12-28 04:45] VITALS: PULSE 67; TEMP 97.5
[2018-12-28] MEDS: hydrALAZINE HCL 20 MG/ML 1 ML VIAL IVP PRN (04:53)
[2018-12-28] MEDS: cloNIDine HCL 0.1 MG TAB PO SCH (07:24)
[2018-12-28] MEDS: LORazepam 1 MG TAB PO SCH (07:24)
[2018-12-28] MEDS: ISOSORBIDE MONONITRATE ER 30 MG TAB.ER.24H PO SCH (07:25)
[2018-12-28] MEDS: SODIUM CHLORIDE 0.9% 1,000 ML IV SCH (07:25)
[2018-12-28] MEDS: CIPROFLOXACIN HCL 500 MG TAB PO SCH (07:25)
[2018-12-28] MEDS: ASPIRIN 81 MG PO SCH (07:25)
[2018-12-28] MEDS: CARVEDILOL 12.5 MG TAB PO SCH (07:25)
--- NOTE | 2018-12-28 08:02 | P.DS ---
Providers Date of admission: 12/26/18 13:41 Attending physician: Vipul Bronson Consults: 12/26/18 13:42 Consult Physician Urgent Consulting Provider: Alex Woo Consult Reason/Comments: pancolitis Do you want consulting provider notified?: Yes Primary care physician: Uri Chaudhary [facility] Course: This is a discharge summary 88-year-old white female essentially admitted for restaurant reticent acute diarrhea. Appreciate GI consultation. She is placed on empiric antibiotic treatment and did quite well. She has not had any recurrence of her diarrhea and seems to tolerate diet but is tired because of lack of sleep. The patient will be discharged stable condition to follow-up with me in 3 days. Patient Condition at Discharge: Stable Plan - Discharge Summary New Discharge Prescriptions: New Ciprofloxacin HCl [Cipro] 500 mg PO BID #14 tab metroNIDAZOLE [Flagyl] 500 mg PO TID #21 tab Continue Isosorbide Mononitrate [Imdur] 30 mg PO DAILY Carvedilol 25 mg PO BID Multivitamin/Iron/Folic Acid [Centrum Complete Multivit Tab] 1 tab PO DAILY Cholecalciferol [Vitamin D3 (25 Mcg = 1000 Iu)] 1,000 unit PO DAILY Aspirin EC [Ecotrin Low Dose] 81 mg PO DAILY Cyanocobalamin (Vitamin B-12) [Vitamin B-12] 1,000 mcg PO DAILY Simvastatin [Zocor] 20 mg PO HS cloNIDine HCL 0.3 mg PO BID LORazepam [Ativan] 1 mg PO BID Ezetimibe [Zetia] 10 mg PO HS Eplerenone 25 mg PO DAILY ALPRAZolam [Xanax] 0.5 mg PO TID PRN PRN Reason: Anxiety Discharge Medication List Carvedilol 25 mg PO BID 12/18/13 [History] Isosorbide Mononitrate [Imdur] 30 mg PO DAILY 12/18/13 [History] Multivitamin/Iron/Folic Acid [Centrum Complete Multivit Tab] 1 tab PO DAILY 11/17/15 [History] Cholecalciferol [Vitamin D3 (25 Mcg = 1000 Iu)] 1,000 unit PO DAILY 07/16/18 [History] Aspirin EC [Ecotrin Low Dose] 81 mg PO DAILY 09/16/18 [History] Cyanocobalamin (Vitamin B-12) [Vitamin B-12] 1,000 mcg PO DAILY 09/20/18 [History] ALPRAZolam [Xanax] 0.5 mg PO TID PRN 12/26/18 [History] Eplerenone 25 mg PO DAILY 12/26/18 [History] Ezetimibe [Zetia] 10 mg PO HS 12/26/18 [History] LORazepam [Ativan] 1 mg PO BID 12/26/18 [History] Simvastatin [Zocor] 20 mg PO HS 12/26/18 [History] cloNIDine HCL 0.3 mg PO BID 12/26/18 [History] Ciprofloxacin HCl [Cipro] 500 mg PO BID #14 tab 12/28/18 [Rx] metroNIDAZOLE [Flagyl] 500 mg PO TID #21 tab 12/28/18 [Rx] Follow up Appointment(s)/Referral(s): Uri Chaudhary MD [Primary Care Provider] - 3 Days
[2018-12-28 10:35] VITALS: BP 116/65
[2018-12-28 10:46] LABS: Iron Saturation 16.93 (12.00-45.00)
== END 2018-12-28 11:21 | disposition home or self-care (01) ==
LOC: EC 11:08 → 4MS4W 13:41
PROVIDERS: ADMIT Allergy & Immunology; ATTEND Allergy & Immunology
DX: N17.9 Acute kidney failure, unspecified (principal); E86.0 Dehydration; E87.1 Hypo-osmolality and hyponatremia; K51.00 Ulcerative (chronic) pancolitis without complications; R73.9 Hyperglycemia, unspecified; D64.9 Anemia, unspecified; I10 Essential (primary) hypertension; E78.5 Hyperlipidemia, unspecified; Z86.73 Personal history of transient ischemic attack (TIA), and cerebral infarction without residual deficits; K21.9 Gastro-esophageal reflux disease without esophagitis; I25.2 Old myocardial infarction; F41.9 Anxiety disorder, unspecified; M54.5 Low back pain; G89.29 Other chronic pain; M19.041 Primary osteoarthritis, right hand; M19.042 Primary osteoarthritis, left hand; Z87.01 Personal history of pneumonia (recurrent); Z87.891 Personal history of nicotine dependence; Z82.49 Family history of ischemic heart disease and other diseases of the circulatory system; W19.XXXA Unspecified fall, initial encounter; Z79.82 Long term (current) use of aspirin; Z79.899 Other long term (current) drug therapy; Z90.710 Acquired absence of both cervix and uterus; Z90.49 Acquired absence of other specified parts of digestive tract; Z98.1 Arthrodesis status; Z98.41 Cataract extraction status, right eye; Z98.42 Cataract extraction status, left eye; Z96.1 Presence of intraocular lens; Z88.5 Allergy status to narcotic agent
CPT/HCPCS: 96376 ×2; 96361 ×2; 96365; 96366 ×3; 96375; 36415; 93005; 80053; 80048; 82550; 83540; 83550; 83605; 85025 ×2; 85610; 85730; 82272; 81001; 87040; 71046; 74177; G0378 ×3; J0360 ×3; Q9967

== ENCOUNTER 2019-12-24 10:36 | Observation (INO) | payer MEDICARE, BC ==
[2019-12-24] MEDS ORDERED: ASPIRIN 81 MG PO STA (11:04)
[2019-12-24] MEDS ORDERED: NITROGLYCERIN OINT 1 INCH/GM PACKET TOPICAL STA (11:04)
--- NOTE | 2019-12-24 11:19 | ED ---
General Adult HPI - General Chief complaint: Chest Pain Stated complaint: chest pain Time Seen by Provider: 12/24/19 10:45 Source: patient, family, RN notes reviewed, old records reviewed Mode of arrival: ambulatory Limitations: no limitations - History of Present Illness Initial comments: This is an 89-year-old female presents emergency Department who states she has had some chest pain last couple of days. Patient states she's been chest pain- free all day today. Patient states she went to her doctor's yesterday and he called her today and told her to come to the emergency department. I spoke with Dr. Chaudhary and he wanted the patient admitted for the chest pain she was having and the fact that she had elevated CPK MBs yesterday. Patient currently denies any symptoms whatsoever. Patient denies headache patient denies numbness weakness. Patient denies lightheadedness dizziness. Patient denies any abdominal pain patient denies nausea vomiting diarrhea. Patient denies any recent fever chills or cough. - Related Data Home Medications Medication Instructions Recorded Confirmed Carvedilol 25 mg PO BID 12/18/13 12/24/19 Isosorbide Mononitrate [Imdur] 30 mg PO DAILY 12/18/13 12/24/19 Multivitamin/Iron/Folic Acid 1 tab PO DAILY 11/17/15 12/24/19 [Centrum Complete Multivit Tab] Aspirin EC [Ecotrin Low Dose] 81 mg PO DAILY 09/16/18 12/24/19 Ezetimibe [Zetia] 10 mg PO HS 12/26/18 12/24/19 LORazepam [Ativan] 1 mg PO BID PRN 12/26/18 12/24/19 Simvastatin [Zocor] 20 mg PO HS 12/26/18 12/24/19 cloNIDine HCL 0.3 mg PO BID 12/26/18 12/24/19 Mirabegron [Myrbetriq] 25 mg PO DAILY 12/24/19 12/24/19 Nitroglycerin Sl Tabs [Nitrostat] 0.4 mg SUBLINGUAL Q5M PRN 12/24/19 12/24/19 amLODIPine [Norvasc] 5 mg PO DAILY 12/24/19 12/24/19 Allergies Allergy/AdvReac Type Severity Reaction Status Date / Time oxycodone [From Percocet] Allergy Unknown Verified 12/24/19 11:55 codeine AdvReac Nausea & Verified 12/24/19 11:55 Vomiting meperidine HCl [From Demerol] AdvReac Nausea & Verified 12/24/19 11:55 Vomiting morphine AdvReac Nausea & Verified 12/24/19 11:55 Vomiting Review of Systems ROS Statement: Those systems with pertinent positive or pertinent negative responses have been documented in the HPI. ROS Other: All systems not noted in ROS Statement are negative. Past Medical History Past Medical History: Chest Pain / Angina, CVA/TIA, GERD/Reflux, Hyperlipidemia, Hypertension, Myocardial Infarction ([place]), Pneumonia, Syncope Additional Past Medical History / Comment(s): Past syncopal episodes, TIAs, UTIs, DJD spin, chronic back pain, arthritis hands, diverticular disease. Last Myocardial Infarction Date:: 11/16/2010 History of Any Multi-Drug Resistant Organisms: None Reported Past Surgical History: Adenoidectomy, Appendectomy, Back Surgery, Cholecystectomy, Heart Catheterization, Hysterectomy, Tonsillectomy Additional Past Surgical History / Comment(s): cardiac caths in 2010 and 2013, back fusion/discectomy, colonoscopy, bilateral cataract removal with lens implants, Past Anesthesia/Blood Transfusion Reactions: Postoperative Nausea & Vomiting (PONV) Past Psychological History: Anxiety Smoking Status: Former smoker Past Alcohol Use History: None Reported Past Drug Use History: None Reported - Past Family History Father Additional Family Medical History / Comment(s): Father at the age of 57yrs with "heart problems". Mother Additional Family Medical History / Comment(s): Mother had an enlarged heart. She at the age of 79yrs. General Exam - General Exam Comments Initial Comments: GENERAL: Patient is well-developed and well-nourished. Patient is nontoxic and well- hydrated and is in no acute distress. ENT: Neck is soft and supple. No significant lymphadenopathy is noted. Oropharynx is clear. Moist mucous membranes. Neck has full range of motion without eliciting any pain. EYES: The sclera were anicteric and conjunctiva were pink and moist. Extraocular movements were intact and pupils were equal round and reactive to light. Eyelids were unremarkable. PULMONARY: Unlabored respirations. Good breath sounds bilaterally. No audible rales rhonchi or wheezing was noted. CARDIOVASCULAR: There is a regular rate and rhythm without any murmurs gallops or rubs. ABDOMEN: Soft and nontender with normal bowel sounds. SKIN: Skin is clear with no lesions or rashes and otherwise unremarkable. NEUROLOGIC: Patient is alert and oriented x3. Cranial nerves II through XII are grossly intact. Motor and sensory are also intact. Normal speech, volume and content. Symmetrical smile. MUSCULOSKELETAL: Normal extremities with adequate strength and full range of motion. No lower extremity swelling or edema. No calf tenderness. LYMPHATICS: No significant lymphadenopathy is noted PSYCHIATRIC: Normal psychiatric evaluation. Limitations: no limitations Course Vital Signs 12/24/19 12/24/19 12/24/19 10:47 11:35 12:30 Temperature 97.7 F Pulse Rate 75 68 68 Respiratory 18 18 18 Rate Blood Pressure 165/67 174/76 156/72 O2 Sat by Pulse 95 96 95 Oximetry Medical Decision Making - Medical Decision Making EKG shows normal sinus rhythm at 79 bpm ND interval 172 QRS is 82 QT interval 366 QTC is 419. Patient has some ND depression in the precordial leads. I spoke with Dr. Chaudhary and he wanted the patient to be admitted to him with cardiology consult. Patient's chest x-ray shows no acute abnormality. I wrote admitting orders and admitted the patient consult cardiology - Lab Data Result diagrams: 12/24/19 11:33 12/24/19 11:33 Lab Results 12/24/19 12/24/19 12/24/19 Range/Units 11:33 11:33 11:33 WBC 9.1 (3.8-10.6) k/uL RBC 3.58 L (3.80-5.40) m/uL Hgb 10.1 L (11.4-16.0) gm/dL Hct 32.5 L (34.0-46.0) % MCV 90.7 (80.0-100.0) fL MCH 28.3 (25.0-35.0) pg MCHC 31.2 (31.0-37.0) g/dL RDW 15.6 H (11.5-15.5) % Plt Count 326 (150-450) k/uL Neutrophils % 73 % Lymphocytes % 15 % Monocytes % 7 % Eosinophils % 3 % Basophils % 1 % Neutrophils # 6.7 (1.3-7.7) k/uL Lymphocytes # 1.4 (1.0-4.8) k/uL Monocytes # 0.6 (0-1.0) k/uL Eosinophils # 0.2 (0-0.7) k/uL Basophils # 0.1 (0-0.2) k/uL PT 10.3 (9.0-12.0) sec INR 1.0 (<1.2) APTT 23.2 (22.0-30.0) sec Sodium 134 L (137-145) mmol/L Potassium 3.7 (3.5-5.1) mmol/L Chloride 103 (98-107) mmol/L Carbon Dioxide 28 (22-30) mmol/L Anion Gap 3 mmol/L BUN 15 (7-17) mg/dL Creatinine 1.04 (0.52-1.04) mg/dL Est GFR (CKD-EPI)AfAm 56 (>60 ml/min/1.73 sqM) Est GFR (CKD-EPI)NonAf 49 (>60 ml/min/1.73 sqM) Glucose 101 H (74-99) mg/dL Calcium 8.9 (8.4-10.2) mg/dL Magnesium 1.7 (1.6-2.3) mg/dL Total Bilirubin 0.4 (0.2-1.3) mg/dL AST 31 (14-36) U/L ALT 18 (4-34) U/L Alkaline Phosphatase 101 (38-126) U/L Troponin I (0.000-0.034) ng/mL Total Protein 5.9 L (6.3-8.2) g/dL Albumin 2.9 L (3.5-5.0) g/dL 12/24/19 Range/Units 11:33 WBC (3.8-10.6) k/uL RBC (3.80-5.40) m/uL Hgb (11.4-16.0) gm/dL Hct (34.0-46.0) % MCV (80.0-100.0) fL MCH (25.0-35.0) pg MCHC (31.0-37.0) g/dL RDW (11.5-15.5) % Plt Count (150-450) k/uL Neutrophils % % Lymphocytes % % Monocytes % % Eosinophils % % Basophils % % Neutrophils # (1.3-7.7) k/uL Lymphocytes # (1.0-4.8) k/uL Monocytes # (0-1.0) k/uL Eosinophils # (0-0.7) k/uL Basophils # (0-0.2) k/uL PT (9.0-12.0) sec INR (<1.2) APTT (22.0-30.0) sec Sodium (137-145) mmol/L Potassium (3.5-5.1) mmol/L Chloride (98-107) mmol/L Carbon Dioxide (22-30) mmol/L Anion Gap mmol/L BUN (7-17) mg/dL Creatinine (0.52-1.04) mg/dL Est GFR (CKD-EPI)AfAm (>60 ml/min/1.73 sqM) Est GFR (CKD-EPI)NonAf (>60 ml/min/1.73 sqM) Glucose (74-99) mg/dL Calcium (8.4-10.2) mg/dL Magnesium (1.6-2.3) mg/dL Total Bilirubin (0.2-1.3) mg/dL AST (14-36) U/L ALT (4-34) U/L Alkaline Phosphatase (38-126) U/L Troponin I 0.017 (0.000-0.034) ng/mL Total Protein (6.3-8.2) g/dL Albumin (3.5-5.0) g/dL Disposition Clinical Impression: Chest pain Disposition: ADMITTED IP TO THIS HOSP Referrals: Uri Chaudhary MD [Primary Care Provider] - 1-2 days Time of Disposition: 13:22
[2019-12-24 11:45] LABS: Basophils # (A) 0.1 k/uL (0-0.2); Basophils % (A) 1 %; Eosinophils # (A) 0.2 k/uL (0-0.7); Eosinophils % (A) 3 %; HCT 32.5 % (34.0-46.0); HGB 10.1 gm/dL (11.4-16.0); Lymphocytes # (A) 1.4 k/uL (1.0-4.8); Lymphocytes % (A) 15 %; MCH 28.3 pg (25.0-35.0); MCHC 31.2 g/dL (31.0-37.0); MCV 90.7 fL (80.0-100.0); Mean Platelet Volume 6.9; Monocytes # (A) 0.6 k/uL (0-1.0); Monocytes % (A) 7 %; Neutrophils # (A) 6.7 k/uL (1.3-7.7); Neutrophils % (A) 73 %; Platelet Count 326 k/uL (150-450); RBC 3.58 m/uL (3.80-5.40); RDW 15.6 % (11.5-15.5); WBC 9.1 k/uL (3.8-10.6)
--- NOTE | 2019-12-24 11:54 | XR ---
EXAMINATION TYPE: XR chest 2V DATE OF EXAM: 12/24/2019 COMPARISON: 12/26/2018 HISTORY: Shortness of breath TECHNIQUE: Frontal and lateral views of the chest are obtained. FINDINGS: Scattered senescent parenchymal changes noted. Hyperinflation compatible with COPD. No evidence for infiltrate. No evidence for atelectasis. Chronic interstitial prominence noted. Bronc hial wall thickening may reflect bronchitis. Heart size is stable. Mediastinal structures are stable and grossly unremarkable. No evidence for hilar prominence. Degenerative changes dorsal spine. IMPRESSION: 1. Chronic interstitial prominence noted. Bronchial wall thickening may reflect bronchitis.
[2019-12-24 11:56] LABS: Partial Thromboplastin Time 23.2 sec (22.0-30.0); Prothrombin Time 10.3 sec (9.0-12.0)
[2019-12-24 12:08] LABS: Albumin 2.9 g/dL (3.5-5.0); Calcium 8.9 mg/dL (8.4-10.2); Magnesium 1.7 mg/dL (1.6-2.3); Potassium 3.7 mmol/L (3.5-5.1); Total Bilirubin 0.4 mg/dL (0.2-1.3); Total Protein 5.9 g/dL (6.3-8.2)
[2019-12-24] MEDS ORDERED: NITROGLYCERIN SL TABS 0.4 MG TAB SUBLINGUAL PRN ×2 (13:22→17:03)
[2019-12-24] MEDS ORDERED: LORazepam 1 MG TAB PO PRN (17:03)
[2019-12-24] MEDS: NITROGLYCERIN OINT 1 INCH/GM PACKET TOPICAL SCH (17:38)
[2019-12-24] MEDS ORDERED: ATORVASTATIN 10 MG TAB PO SCH (21:00)
[2019-12-24] MEDS: cloNIDine HCL 0.1 MG TAB PO SCH (21:01)
[2019-12-24] MEDS: carvediloL 12.5 MG TAB PO SCH (21:01)
[2019-12-25] MEDS: NITROGLYCERIN OINT 1 INCH/GM PACKET TOPICAL SCH ×3 (00:41→13:37)
[2019-12-25 04:17] LABS: Cholesterol 116 mg/dL (<200); HDL Cholesterol 62 mg/dL (40-60); LDL Cholesterol,Calculated 42 mg/dL (0-99); Triglycerides 61 mg/dL (<150)
[2019-12-25 08:19] VITALS: RESP 16
[2019-12-25] MEDS ORDERED: NON FORMULARY DRUG (Mirabegron [Myrbetriq] 25 MG Tab.Er.24h) PO SCH (09:00)
[2019-12-25] MEDS ORDERED: amLODIPine 5 MG TAB PO SCH (09:00)
[2019-12-25] MEDS ORDERED: ASPIRIN 325 MG TAB PO SCH (09:00)
[2019-12-25] MEDS ORDERED: MULTIVITAMINS, THERA 1 EACH TAB PO SCH (09:00)
[2019-12-25] MEDS: carvediloL 12.5 MG TAB PO SCH (10:14)
[2019-12-25] MEDS: cloNIDine HCL 0.1 MG TAB PO SCH (10:14)
--- NOTE | 2019-12-25 10:38 | P.CRDCN ---
History of Present Illness Consult date: 12/25/19 Requesting physician: Uri Chaudhary Reason for Consult (text): chest pain Chief complaint: chest pain 4 days ago History of present illness: This is a pleasant 89-year-old female patient who follows with Dr. Spaulding in the office. She has a known history of Takotsubo cardiomyopathy, mild CAD noted on cardiac catheterization in 2013, hypertension and hyperlipidemia. She presented initially to her primary care physician's on December 22 for her flu shot and regular checkup and mentioned an episode of chest discomfort that lasted about 4 days and stopped about 4 days ago at which time he did some blood work and initially wanted the patient to present to the emergency department that day however she declined. Labs from Dr. Chaudhary's office apparently showed elevated CPK and CK-MBs on the first and he called her yesterday morning and told her to report to the emergency department. The patient has been chest pain-free for about 4 days. The pain she was having was in the lower sternal area and epigastric area and was worsened with swallowing. Again the pain lasted about 4 days. There were no relieving factors. She had no diaphoresis, shortness of breath, nausea, dizziness or lightheadedness. She's had no dyspnea on exertion, orthopnea or PND. EKG on admission showed sinus rhythm with no evidence of acute ischemia. Blood pressure has been elevated 140s to 180s systolic. Labs show a white blood cell count of 9.1, hemoglobin 10.1, sodium 134, potassium 3.7, BUN 15, creatinine 1.04, troponin 0.017, 0.014 and 0.024 and lipids are well controlled. Home medications include amlodipine 5 mg by mouth daily, clonidine 0.3 mg by mouth twice a day, isosorbide 30 mg by mouth daily, Zocor 20 mg by mouth daily at bedtime, Ativan 1 mg by mouth twice a day when necessary, as well as any 10 mg by mouth daily at bedtime, carvedilol 25 mg by mouth twice a day, aspirin 81 mg by mouth daily and Myrbetriq 25 mg by mouth daily. Past Medical History Past Medical History: Chest Pain / Angina, CVA/TIA, GERD/Reflux, Hyperlipidemia, Hypertension, Myocardial Infarction ([place]), Pneumonia, Syncope Additional Past Medical History / Comment(s): Past syncopal episodes, TIAs, UTIs, DJD spin, chronic back pain, arthritis hands, diverticular disease. Last Myocardial Infarction Date:: 11/16/2010 History of Any Multi-Drug Resistant Organisms: None Reported Past Surgical History: Adenoidectomy, Appendectomy, Back Surgery, Cholecystectomy, Heart Catheterization, Hysterectomy, Tonsillectomy Additional Past Surgical History / Comment(s): cardiac caths in 2010 and 2013, back fusion/discectomy, colonoscopy, bilateral cataract removal with lens implants, Past Anesthesia/Blood Transfusion Reactions: Postoperative Nausea & Vomiting (PONV) Past Psychological History: Anxiety Additional Psychological History / Comment(s): takes ativan for anxiety Smoking Status: Former smoker Past Alcohol Use History: None Reported Additional Past Alcohol Use History / Comment(s): Pt states she started smoking in 1949 and quit in 1975. She will have an occasional glass of wine. Past Drug Use History: None Reported - Past Family History Father Additional Family Medical History / Comment(s): Father at the age of 57yrs with "heart problems". Mother Additional Family Medical History / Comment(s): Mother had an enlarged heart. She at the age of 79yrs. Medications and Allergies Home Medications Medication Instructions Recorded Confirmed Type Carvedilol 25 mg PO BID 12/18/13 12/24/19 History Isosorbide Mononitrate [Imdur] 30 mg PO DAILY 12/18/13 12/24/19 History Multivitamin/Iron/Folic Acid 1 tab PO DAILY 11/17/15 12/24/19 History [Centrum Complete Multivit Tab] Aspirin EC [Ecotrin Low Dose] 81 mg PO DAILY 09/16/18 12/24/19 History Ezetimibe [Zetia] 10 mg PO HS 12/26/18 12/24/19 History LORazepam [Ativan] 1 mg PO BID PRN 12/26/18 12/24/19 History Simvastatin [Zocor] 20 mg PO HS 12/26/18 12/24/19 History cloNIDine HCL 0.3 mg PO BID 12/26/18 12/24/19 History Mirabegron [Myrbetriq] 25 mg PO DAILY 12/24/19 12/24/19 History Nitroglycerin Sl Tabs [Nitrostat] 0.4 mg SUBLINGUAL Q5M PRN 10/02/20 10/02/20 History amLODIPine [Norvasc] 5 mg PO DAILY 12/24/19 12/24/19 History Allergies Allergy/AdvReac Type Severity Reaction Status Date / Time oxycodone [From Percocet] Allergy Unknown Verified 12/24/19 11:55 codeine AdvReac Nausea & Verified 12/24/19 11:55 Vomiting meperidine HCl [From Demerol] AdvReac Nausea & Verified 12/24/19 11:55 Vomiting morphine AdvReac Nausea & Verified 12/24/19 11:55 Vomiting Physical Exam Vitals: Vital Signs Temp Pulse Pulse Resp BP BP Pulse Ox 12/25/19 08:17 98 F 77 16 182/69 96 12/25/19 08:01 94 L 12/25/19 03:50 98.5 F 78 17 183/65 94 L 12/24/19 21:00 98.2 F 77 16 182/62 93 L 12/24/19 15:30 97.5 F L 97 18 175/72 97 12/24/19 14:30 98.2 F 72 20 142/92 95 12/24/19 14:00 74 18 142/80 95 12/24/19 13:30 71 17 149/74 96 12/24/19 13:00 69 18 142/67 95 12/24/19 12:30 68 18 156/72 95 12/24/19 11:35 68 18 174/76 96 12/24/19 10:47 97.7 F 75 18 165/67 95 Intake and Output 12/24/19 12/25/19 12/25/19 22:59 06:59 14:59 Intake Total 240 0 Balance 240 0 Intake: Oral 240 0 Other: Voiding Method Toilet Toilet Toilet # Voids 1 1 PHYSICAL EXAMINATION: This is a 89-year-old female in no apparent distress at the time of my examination. VITAL SIGNS: Blood pressure 182/69, heart rate 77, respirations 16, temp 98F. Patient is 96 % on . HEENT: Head is atraumatic, normocephalic. Pupils are equal, round. Sclerae anicteric. Conjunctivae are clear. Mucous membranes of the mouth are moist. Neck is supple. There is no elevated jugular venous pressure. No carotid bruit is heard. CHEST EXAMINATION: Clear to auscultation bilaterally. No wheezes rales or rhonchi. Respirations even and nonlabored. HEART EXAMINATION: Heart regular, positive S1 and S2. No S3. No S4. With a systolic murmur at the base. ABDOMEN: Soft, nontender. Bowel sounds are heard. No organomegaly noted. EXTREMITIES: 2+ peripheral pulses with no evidence of peripheral edema and no calf tenderness noted. NEUROLOGIC EXAMINATION: Patient is awake, alert and oriented x3. Results 12/24/19 11:33 12/24/19 11:33 Cardiac Enzymes 12/24/19 12/24/19 12/24/19 Range/Units 11:33 11:33 14:34 AST 31 (14-36) U/L Troponin I 0.017 0.014 (0.000-0.034) ng/mL 12/24/19 Range/Units 18:12 AST (14-36) U/L Troponin I 0.024 (0.000-0.034) ng/mL Coagulation 12/24/19 Range/Units 11:33 PT 10.3 (9.0-12.0) sec APTT 23.2 (22.0-30.0) sec Lipids 12/24/19 Range/Units 11:33 Triglycerides 61 (<150) mg/dL Cholesterol 116 (<200) mg/dL HDL Cholesterol 62 H (40-60) mg/dL CBC 12/24/19 Range/Units 11:33 WBC 9.1 (3.8-10.6) k/uL RBC 3.58 L (3.80-5.40) m/uL Hgb 10.1 L (11.4-16.0) gm/dL Hct 32.5 L (34.0-46.0) % Plt Count 326 (150-450) k/uL Comprehensive Metabolic Panel 12/24/19 Range/Units 11:33 Sodium 134 L (137-145) mmol/L Potassium 3.7 (3.5-5.1) mmol/L Chloride 103 (98-107) mmol/L Carbon Dioxide 28 (22-30) mmol/L BUN 15 (7-17) mg/dL Creatinine 1.04 (0.52-1.04) mg/dL Glucose 101 H (74-99) mg/dL Calcium 8.9 (8.4-10.2) mg/dL AST 31 (14-36) U/L ALT 18 (4-34) U/L Alkaline Phosphatase 101 (38-126) U/L Total Protein 5.9 L (6.3-8.2) g/dL Albumin 2.9 L (3.5-5.0) g/dL Current Medications Generic Name Dose Route Start Last Admin Trade Name Freq PRN Reason Stop Dose Admin Amlodipine Besylate 5 mg 12/25/19 09:00 Amlodipine 5 Mg Tab PO DAILY [facility] Aspirin 325 mg 12/25/19 09:00 Aspirin 325 Mg Tab PO DAILY LUCITA Atorvastatin Calcium 10 mg 12/24/19 21:00 12/24/19 21:00 Atorvastatin 10 Mg Tab PO 10 mg HS LUCITA Administration Carvedilol 25 mg 12/24/19 21:00 12/24/19 21:01 Carvedilol 12.5 Mg Tab PO 25 mg BID LUCITA Administration Clonidine 0.3 mg 12/24/19 21:00 12/24/19 21:01 Clonidine Hcl 0.1 Mg Tab PO 0.3 mg BID LUCITA Administration Lorazepam 1 mg 12/24/19 17:03 12/24/19 21:03 Lorazepam 1 Mg Tab PO 1 mg BID PRN Administration Anxiety Multivitamins 1 each 12/25/19 09:00 Multivitamins, Thera 1 Each Tab PO DAILY [facility] Nitroglycerin 1 inch 12/24/19 18:00 12/25/19 05:23 Nitroglycerin Oint 1 Inch/Gm Packet TOPICAL Not Given Q6HR [facility] Nitroglycerin 0.4 mg 12/24/19 17:03 Nitroglycerin Sl Tabs 0.4 Mg Tab SUBLINGUAL Q5M PRN Chest Pain Non-Formulary Medication 25 mg 12/25/19 09:00 Mirabegron [Myrbetriq] PO DAILY [facility] Intake and Output 12/24/19 12/25/19 12/25/19 22:59 06:59 14:59 Intake Total 240 0 Balance 240 0 Intake: Oral 240 0 Other: Voiding Method Toilet Toilet Toilet # Voids 1 1 12/24/19 11:33 12/24/19 11:33 Assessment and Plan Assessment: #1 symptoms of 4 day episode of chest and epigastric discomfort, atypical for anginal pain, worsened with swallowing, troponins within normal range 3, EKG shows no evidence of ischemia #2 history of Takotsubo cardiomyopathy #3 mild CAD #4 hypertension #5 hyperlipidemia Plan: From cardiology perspective we will reassess blood pressure after medications have been administered. We obtain a 2-D echo with Doppler to assess cardiac structure and function. Ambulate the patient. If the patient remains chest pain-free she may be discharged home and keep her follow-up appointment with Dr. Spaulding in the office on December 26. [facility] [employer] note has been reviewed, I agree with a documented findings and plan of care. Patient was seen and examined.
[2019-12-25 14:38] VITALS: BP 157/66; PULSE 71; TEMP 98.1
--- NOTE | 2019-12-25 16:10 | ECHOF ---
Referral Reason:chest pain MEASUREMENTS -------- HEIGHT: 129.5 cm WEIGHT: 49.9 kg BP: IVSd: 1.3 cm (0.6 - 1.1) LVIDd: 3.2 cm (3.9 - 5.3) LVPWd: 1.3 cm (0.6 - 1.1) EDV(Teich): 40 ml IVSs: 1.4 cm LVIDs: 2.0 cm LVPWs: 1.7 cm %IVS Thck: 11 % ESV(Teich): 13 ml EF(Teich): 67 % %FS: 36 % SV(Teich): 27 ml LVOT Diam: 1.6 cm IVC: 12.75 mm LALs A4C: 4.8 cm LAAs A4C: 17.6 cm LAESV A-L A4C: 55 ml LAESV MOD A4C: 53 ml LALs A2C: 4.5 cm LAAs A2C: 12.4 cm LAESV A-L A2C: 29 ml LAESV MOD A2C: 28 ml LAESV(A-L): 41 ml LAESV Index (A-L): 31.79 ml/m Ao Diam: 2.8 cm (2.0 - 3.7) LA Diam: 3.7 cm (2.7 - 3.8) AV Cusp: 1.3 cm (1.5 - 2.6) EPSS: 0.7 cm MV E Devendra: 0.78 m/s MV DecT: 239 ms MV Dec [place]: 3.3 m/s MV A Devendra: 1.17 m/s MV E/A Ratio: 0.67 MV PHT: 69 ms MR Vmax: 2.00 m/s MR maxP.06 mmHg LVOT Vmax: 0.99 m/s LVOT maxP.91 mmHg AV Vmax: 2.08 m/s AV maxP.27 mmHg GOLDEN Vmax, Pt: 0.9 cm AV Vmax: 2.17 m/s AV Vmean: 1.65 m/s AV maxP.88 mmHg AV meanP.12 mmHg AV Env.Ti: 291 ms AV VTI: 47.9 cm GOLDEN Vmax, Pt: 0.9 cm AR Vmax: 2.35 m/s AR maxP.15 mmHg AR PHT: 2043 ms AR Dec Time: 7046 ms AR Dec [place]: 0.3 m/s TR Vmax: 1.85 m/s TR maxP.68 mmHg RAP: 5.00 mmHg RVSP: 18.68 mmHg MV EF SLOPE: 145.61 mm/s (70 - 150) MV EXCURSION: 20.95 mm (> 18.000) FINDINGS -------- Sinus rhythm. This was a technically adequate study. The left ventricular size is normal. There is mild concentric left ventricular hypertrophy. Overa ll left ventricular systolic function is normal with, an EF between 55 - 60 %. The diastolic fillin g pattern is normal for the age of the patient 11.39. The right ventricle is normal in size. LA is midly dilated 29-33ml/m2. The right atrial size is normal. Aortic valve is trileaflet and is mildly thickened. There is mild aortic regurgitation. There is mild aortic stenosis present. Peak/mean gradient across the Aortic Valve is 18.88mmHg / 12.12mmHg. Moderate mitral annular calcification present. Mild mitral regurgitation is present. The tricuspid valve appears structurally normal. Mild tricuspid regurgitation present. Right vent ricular systolic pressure is normal at < 35 mmHg. The pulmonic valve was not well visualized. The aortic root size is normal. Normal inferior vena cava with normal inspiratory collapse consistent with estimated right atrial pre ssure of 5 mmHg. There is no pericardial effusion. CONCLUSIONS -------- 1. There is mild concentric left ventricular hypertrophy. 2. Overall left ventricular systolic function is normal with, an EF between 55 - 60 %. 3. The diastolic filling pattern is normal for the age of the patient 11.39 4. LA is midly dilated 29-33ml/m2. 5. Aortic valve is trileaflet and is mildly thickened. 6. There is mild aortic regurgitation. 7. There is mild aortic stenosis present. 8. Peak/mean gradient across the Aortic Valve is 18.88mmHg / 12.12mmHg. 9. Moderate mitral annular calcification present. 10. Mild mitral regurgitation is present. 11. Mild tricuspid regurgitation present. 12. There is no pericardial effusion. PEANUT VENDOR: Imelda Yuen RDCS
--- NOTE | 2019-12-26 16:44 | P.HPIM ---
History of Present Illness H&P Date: 12/25/19 Chief Complaint: Chest pain 89-year-old female presents emergency Department who states she has had some chest pain last couple of days. Patient states she's been chest pain-free all day today. Patient states she went to her doctor's yesterday and he called her today and told her to come to the emergency department. I spoke with Dr. Chaudhary and he wanted the patient admitted for the chest pain she was having and the fact that she had elevated CPK MBs yesterday. Patient currently denies any symptoms whatsoever. Patient denies headache patient denies numbness weakness. Patient denies lightheadedness dizziness. Patient denies any abdominal pain patient denies nausea vomiting diarrhea. Patient denies any recent fever chills or cough. Workup in ED revealed EKG which showed normal sinus rhythm with some MO depression in precordial leads; chest x-ray was unremarkable; lab review shows a white blood count of 9.1, hemoglobin of 10.1, sodium of 134 with potassium 3.7, B UN/creatinine of 15/1.04; patient is admitted to the hospital for further cardiac evaluation and testing Review of Systems REVIEW OF SYSTEMS: CONSTITUTIONAL: No fever, no malaise, no fatigue. HEENT: No recent visual problems or hearing problems. Denied any sore throat. CARDIOVASCULAR: No chest pain, orthopnea, PND, no palpitations, no syncope. PULMONARY: No shortness of breath, no cough, no hemoptysis. GASTROINTESTINAL: No diarrhea, no nausea, no vomiting, no abdominal pain. NEUROLOGICAL: No headaches, no weakness, no numbness. HEMATOLOGICAL: Denies any bleeding or petechiae. GENITOURINARY: Denies any burning micturition, frequency, or urgency. MUSCULOSKELETAL/RHEUMATOLOGICAL: Denies any joint pain, swelling, or any muscle pain. ENDOCRINE: Denies any polyuria or polydipsia. The rest of the 14-point review of systems is negative. Past Medical History Past Medical History: Chest Pain / Angina, CVA/TIA, GERD/Reflux, Hyperlipidemia, Hypertension, Myocardial Infarction ([place]), Pneumonia, Syncope Additional Past Medical History / Comment(s): Past syncopal episodes, TIAs, UTIs, DJD spin, chronic back pain, arthritis hands, diverticular disease. Last Myocardial Infarction Date:: 11/16/2010 History of Any Multi-Drug Resistant Organisms: None Reported Past Surgical History: Adenoidectomy, Appendectomy, Back Surgery, Cholecystectomy, Heart Catheterization, Hysterectomy, Tonsillectomy Additional Past Surgical History / Comment(s): cardiac caths in 2010 and 2013, back fusion/discectomy, colonoscopy, bilateral cataract removal with lens implants, Past Anesthesia/Blood Transfusion Reactions: Postoperative Nausea & Vomiting (PONV) Past Psychological History: Anxiety Additional Psychological History / Comment(s): takes ativan for anxiety Smoking Status: Former smoker Past Alcohol Use History: None Reported Additional Past Alcohol Use History / Comment(s): Pt states she started smoking in 1949 and quit in 1975. She will have an occasional glass of wine. Past Drug Use History: None Reported - Past Family History Father Additional Family Medical History / Comment(s): Father at the age of 57yrs with "heart problems". Mother Additional Family Medical History / Comment(s): Mother had an enlarged heart. She at the age of 79yrs. Medications and Allergies Home Medications Medication Instructions Recorded Confirmed Type Carvedilol 25 mg PO BID 12/18/13 12/26/19 History Isosorbide Mononitrate [Imdur] 30 mg PO DAILY 12/18/13 12/26/19 History Multivitamin/Iron/Folic Acid 1 tab PO DAILY 11/17/15 12/26/19 History [Centrum Complete Multivit Tab] Aspirin EC [Ecotrin Low Dose] 81 mg PO DAILY 09/16/18 12/26/19 History Ezetimibe [Zetia] 10 mg PO HS 12/26/18 12/26/19 History LORazepam [Ativan] 1 mg PO BID PRN 12/26/18 12/26/19 History Simvastatin [Zocor] 20 mg PO HS 12/26/18 12/26/19 History cloNIDine HCL 0.3 mg PO BID 12/26/18 12/26/19 History Mirabegron [Myrbetriq] 25 mg PO DAILY 12/24/19 12/26/19 History Nitroglycerin Sl Tabs [Nitrostat] 0.4 mg SUBLINGUAL Q5M PRN 12/24/19 12/26/19 History amLODIPine [Norvasc] 5 mg PO DAILY 12/24/19 12/26/19 History Allergies Allergy/AdvReac Type Severity Reaction Status Date / Time oxycodone [From Percocet] Allergy Unknown Verified 12/24/19 11:55 codeine AdvReac Nausea & Verified 12/24/19 11:55 Vomiting meperidine HCl [From Demerol] AdvReac Nausea & Verified 12/24/19 11:55 Vomiting morphine AdvReac Nausea & Verified 12/24/19 11:55 Vomiting Physical Exam Vitals: Vital Signs Temp Pulse Pulse Resp BP BP Pulse Ox 12/25/19 08:17 98 F 77 16 182/69 96 12/25/19 08:01 94 L 12/25/19 03:50 98.5 F 78 17 183/65 94 L 12/24/19 21:00 98.2 F 77 16 182/62 93 L 12/24/19 15:30 97.5 F L 97 18 175/72 97 12/24/19 14:30 98.2 F 72 20 142/92 95 12/24/19 14:00 74 18 142/80 95 12/24/19 13:30 71 17 149/74 96 12/24/19 13:00 69 18 142/67 95 12/24/19 12:30 68 18 156/72 95 Intake and Output 12/24/19 12/25/19 12/25/19 22:59 06:59 14:59 Intake Total 240 0 Balance 240 0 Intake: Oral 240 0 Other: Voiding Method Toilet Toilet Toilet # Voids 1 1 - Constitutional General appearance: Present: average body habitus, cooperative, no acute distress - EENT Eyes: Present: anicteric sclerae, EOMI, PERRLA, normal appearance ENT: Present: hearing grossly normal, normal oropharynx Ears: bilateral: normal - Neck Neck: Present: normal ROM. Absent: lymphadenopathy, rigidity, thyromegaly Carotids: negative: bruit present Thyroid: bilateral: normal size, negative: enlarged, nodule - Respiratory Respiratory: bilateral: CTA, negative: rales, rhonchi, wheezing - Cardiovascular Rhythm: regular Heart sounds: normal: S1, S2 Abnormal Heart Sounds: Absent: systolic murmur, diastolic murmur - Gastrointestinal General gastrointestinal: Present: normal bowel sounds, soft. Absent: distended, organomegaly, tenderness - Genitourinary Genitourinary Comment(s): deferred - Integumentary Integumentary: Present: normal turgor. Absent: jaundiced, rash, ulcer - Neurologic Neurologic: Present: CNII-XII intact. Absent: focal deficits - Musculoskeletal Musculoskeletal: Present: gait normal, strength equal bilaterally - Psychiatric Psychiatric: Present: A&O x's 3, appropriate affect, intact judgment & insight Results CBC & Chem 7: 12/24/19 11:33 10 11:33 Labs: Abnormal Lab Results - Last 24 Hours (Table) 12/24/19 12/24/19 Range/Units 11:33 11:33 Sodium 134 L (137-145) mmol/L Glucose 101 H (74-99) mg/dL Total Protein 5.9 L (6.3-8.2) g/dL Albumin 2.9 L (3.5-5.0) g/dL HDL Cholesterol 62 H (40-60) mg/dL Thrombosis Risk Factor Assmnt - Choose All That Apply Other Risk Factors: Yes Each Risk Factor Represents 3 Points: Age 75 years or older Thrombosis Risk Factor Assessment Total Risk Factor Score: 3 Thrombosis Risk Factor Assessment Level: Moderate Risk Assessment and Plan Assessment: 1. Chest pain rule out acute coronary syndrome - Monitor EKG and trend troponin; cardiology is consulted and recommending to obtain a 2-D echo to evaluate left ventricular function; patient is to ambulate on the unit with plan to discharge patient home if she remains chest pain-free and echocardiogram is stable 2. Hyperlipidemia; continue with statins therapy patient takes Zocor 20 mg daily at bedtime and Friday a 10 mg by mouth daily at bedtime 3. Hypertension; Coreg 25 mg twice a day, clonidine 0.3 mg twice a day, Norvasc 5 mg daily and Imdur 30 mg daily 4. Coronary artery disease; patient takes aspirin, beta blockers, nitrates and statin therapy; further evaluation as above DVT prophylaxis; SCDs CODE STATUS; full code
== END 2019-12-25 17:23 | disposition home or self-care (01) ==
LOC: EC 10:36 → 3NCARDOBS 13:23
PROVIDERS: ADMIT Family Medicine; ATTEND Family Medicine
DX: R07.89 Other chest pain (principal); R10.13 Epigastric pain; R74.8 Abnormal levels of other serum enzymes; K21.9 Gastro-esophageal reflux disease without esophagitis; E78.5 Hyperlipidemia, unspecified; G89.29 Other chronic pain; I10 Essential (primary) hypertension; I25.10 Atherosclerotic heart disease of native coronary artery without angina pectoris; I51.81 Takotsubo syndrome; I25.2 Old myocardial infarction; M54.9 Dorsalgia, unspecified; M19.042 Primary osteoarthritis, left hand; M19.041 Primary osteoarthritis, right hand; F41.9 Anxiety disorder, unspecified; Z79.899 Other long term (current) drug therapy; Z79.82 Long term (current) use of aspirin; Z88.5 Allergy status to narcotic agent; Z87.891 Personal history of nicotine dependence; Z86.73 Personal history of transient ischemic attack (TIA), and cerebral infarction without residual deficits; Z87.01 Personal history of pneumonia (recurrent); Z87.440 Personal history of urinary (tract) infections; Z90.49 Acquired absence of other specified parts of digestive tract; Z90.710 Acquired absence of both cervix and uterus; Z98.1 Arthrodesis status; Z82.49 Family history of ischemic heart disease and other diseases of the circulatory system
CPT/HCPCS: 93005 ×2; 99285; 36415; 94760; 93306; 80061; 80053; 83735; 84484; 85025; 85610; 85730; 71046; G0378 ×2

== ENCOUNTER 2019-12-26 13:33 | Observation (INO) | payer MEDICARE, BC ==
[2019-12-26] MEDS ORDERED: NITROGLYCERIN OINT 1 INCH/GM PACKET TOPICAL STA (13:35)
--- NOTE | 2019-12-26 13:39 | ED ---
General Adult HPI - General Stated complaint: STEMI Time Seen by Provider: 12/26/19 13:33 Source: patient, RN notes reviewed, old records reviewed - History of Present Illness Initial comments: This is an 89-year-old female with past medical history significant for heart attacks as well as high cholesterol and high blood pressure. Patient states this morning she woke up but she had some heartburn but the pain got worse. Patient states she took Prilosec and it did not help. Patient states she became diaphoretic and had shortness of breath. Patient denied nausea vomiting per patient denies any abdominal pain. Patient states she got aspirin in route and now her pain is almost completely gone. Patient denies any lightheadedness dizziness or near syncopal episode. Patient denies any swelling legs or calf tenderness. Patient denies any recent fever chills or cough. Patient states she was just in the hospital recently. - Related Data Home Medications Medication Instructions Recorded Confirmed Carvedilol 25 mg PO BID 12/18/13 12/26/19 Isosorbide Mononitrate [Imdur] 30 mg PO DAILY 12/18/13 12/26/19 Multivitamin/Iron/Folic Acid 1 tab PO DAILY 11/17/15 12/26/19 [Centrum Complete Multivit Tab] Aspirin EC [Ecotrin Low Dose] 81 mg PO DAILY 09/16/18 12/26/19 Ezetimibe [Zetia] 10 mg PO HS 12/26/18 12/26/19 LORazepam [Ativan] 1 mg PO BID PRN 12/26/18 12/26/19 Simvastatin [Zocor] 20 mg PO HS 12/26/18 12/26/19 cloNIDine HCL 0.3 mg PO BID 12/26/18 12/26/19 Mirabegron [Myrbetriq] 25 mg PO DAILY 12/24/19 12/26/19 Nitroglycerin Sl Tabs [Nitrostat] 0.4 mg SUBLINGUAL Q5M PRN 12/24/19 12/26/19 amLODIPine [Norvasc] 5 mg PO DAILY 12/24/19 12/26/19 Allergies Allergy/AdvReac Type Severity Reaction Status Date / Time oxycodone [From Percocet] Allergy Unknown Verified 12/24/19 11:55 codeine AdvReac Nausea & Verified 12/24/19 11:55 Vomiting meperidine HCl [From Demerol] AdvReac Nausea & Verified 12/24/19 11:55 Vomiting morphine AdvReac Nausea & Verified 12/24/19 11:55 Vomiting Review of Systems ROS Statement: Those systems with pertinent positive or pertinent negative responses have been documented in the HPI. ROS Other: All systems not noted in ROS Statement are negative. Past Medical History Past Medical History: Chest Pain / Angina, CVA/TIA, GERD/Reflux, Hyperlipidemia, Hypertension, Myocardial Infarction ([place]), Pneumonia, Syncope Additional Past Medical History / Comment(s): Past syncopal episodes, TIAs, UTIs, DJD spin, chronic back pain, arthritis hands, diverticular disease. Last Myocardial Infarction Date:: 11/16/2010 History of Any Multi-Drug Resistant Organisms: None Reported Past Surgical History: Adenoidectomy, Appendectomy, Back Surgery, Cholecystectomy, Heart Catheterization, Hysterectomy, Tonsillectomy Additional Past Surgical History / Comment(s): cardiac caths in 2010 and 2013, back fusion/discectomy, colonoscopy, bilateral cataract removal with lens implants, Past Anesthesia/Blood Transfusion Reactions: Postoperative Nausea & Vomiting (PONV) Past Psychological History: Anxiety Additional Psychological History / Comment(s): takes ativan for anxiety Smoking Status: Former smoker Past Alcohol Use History: None Reported Additional Past Alcohol Use History / Comment(s): Pt states she started smoking in 1950 and quit in 1975. She will have an occasional glass of wine. Past Drug Use History: None Reported - Past Family History Father Additional Family Medical History / Comment(s): Father at the age of 57yrs with "heart problems". Mother Additional Family Medical History / Comment(s): Mother had an enlarged heart. She at the age of 79yrs. General Exam - General Exam Comments Initial Comments: GENERAL: Patient is well-developed and well-nourished. Patient is nontoxic and well-hyd rated and is in mild distress. ENT: Neck is soft and supple. No significant lymphadenopathy is noted. Oropharynx is clear. Moist mucous membranes. Neck has full range of motion without eliciting any pain. EYES: The sclera were anicteric and conjunctiva were pink and moist. Extraocular movements were intact and pupils were equal round and reactive to light. Eyelids were unremarkable. PULMONARY: Unlabored respirations. Good breath sounds bilaterally. No audible rales rhonchi or wheezing was noted. CARDIOVASCULAR: There is a regular rate and rhythm without any murmurs gallops or rubs. ABDOMEN: Soft and nontender with normal bowel sounds. SKIN: Skin is clear with no lesions or rashes and otherwise unremarkable. NEUROLOGIC: Patient is alert and oriented x3. Cranial nerves II through XII are grossly intact. Motor and sensory are also intact. Normal speech, volume and content. Symmetrical smile. MUSCULOSKELETAL: Normal extremities with adequate strength and full range of motion. No lower extremity swelling or edema. No calf tenderness. LYMPHATICS: No significant lymphadenopathy is noted PSYCHIATRIC: Normal psychiatric evaluation. Course Vital Signs 12/26/19 13:36 Temperature 97.6 F Pulse Rate 72 Respiratory 19 Rate Blood Pressure 147/65 O2 Sat by Pulse 95 Oximetry Medical Decision Making - Medical Decision Making Patient's EKG shows normal sinus rhythm at 73 bpm TN interval 174 QRS is 82 QT interval 380 QTC is 418. EKG shows no ST segment elevation or depression Chest x-ray shows some pulmonary edema. I spoke with Dr. Burnette he agreed to admit the patient admitted the patient wrote admitting orders. - Lab Data Result diagrams: 12/26/19 13:44 12/26/19 13:44 Lab Results 12/26/19 12/26/19 12/26/19 Range/Units 13:44 13:44 13:44 WBC 10.0 (3.8-10.6) k/uL RBC 3.45 L (3.80-5.40) m/uL Hgb 9.7 L (11.4-16.0) gm/dL Hct 31.3 L (34.0-46.0) % MCV 90.6 (80.0-100.0) fL MCH 28.2 (25.0-35.0) pg MCHC 31.1 (31.0-37.0) g/dL RDW 15.4 (11.5-15.5) % Plt Count 318 (150-450) k/uL Neutrophils % 76 % Lymphocytes % 13 % Monocytes % 6 % Eosinophils % 3 % Basophils % 1 % Neutrophils # 7.6 (1.3-7.7) k/uL Lymphocytes # 1.3 (1.0-4.8) k/uL Monocytes # 0.6 (0-1.0) k/uL Eosinophils # 0.3 (0-0.7) k/uL Basophils # 0.1 (0-0.2) k/uL Sodium 134 L (137-145) mmol/L Potassium 3.8 (3.5-5.1) mmol/L Chloride 103 (98-107) mmol/L Carbon Dioxide 26 (22-30) mmol/L Anion Gap 5 mmol/L BUN 15 (7-17) mg/dL Creatinine 0.98 (0.52-1.04) mg/dL Est GFR (CKD-EPI)AfAm 60 (>60 ml/min/1.73 sqM) Est GFR (CKD-EPI)NonAf 52 (>60 ml/min/1.73 sqM) Glucose 149 H (74-99) mg/dL Calcium 8.5 (8.4-10.2) mg/dL Magnesium 1.7 (1.6-2.3) mg/dL Total Bilirubin 0.3 (0.2-1.3) mg/dL AST 29 (14-36) U/L ALT 16 (4-34) U/L Alkaline Phosphatase 95 (38-126) U/L Troponin I <0.012 (0.000-0.034) ng/mL Total Protein 6.0 L (6.3-8.2) g/dL Albumin 2.9 L (3.5-5.0) g/dL Disposition Clinical Impression: Chest pain Disposition: ADMITTED IP TO THIS HOSP Referrals: Uri Chaudhary MD [Primary Care Provider] - 1-2 days Time of Disposition: 14:31
[2019-12-26 13:54] LABS: Basophils # (A) 0.1 k/uL (0-0.2); Basophils % (A) 1 %; Eosinophils # (A) 0.3 k/uL (0-0.7); Eosinophils % (A) 3 %; HCT 31.3 % (34.0-46.0); HGB 9.7 gm/dL (11.4-16.0); Lymphocytes # (A) 1.3 k/uL (1.0-4.8); Lymphocytes % (A) 13 %; MCH 28.2 pg (25.0-35.0); MCHC 31.1 g/dL (31.0-37.0); MCV 90.6 fL (80.0-100.0); Mean Platelet Volume 7.1; Monocytes # (A) 0.6 k/uL (0-1.0); Monocytes % (A) 6 %; Neutrophils # (A) 7.6 k/uL (1.3-7.7); Neutrophils % (A) 76 %; Platelet Count 318 k/uL (150-450); RBC 3.45 m/uL (3.80-5.40); RDW 15.4 % (11.5-15.5)
[2019-12-26 14:06] LABS: Albumin 2.9 g/dL (3.5-5.0); Calcium 8.5 mg/dL (8.4-10.2); Magnesium 1.7 mg/dL (1.6-2.3); Potassium 3.8 mmol/L (3.5-5.1); Total Bilirubin 0.3 mg/dL (0.2-1.3)
--- NOTE | 2019-12-26 14:06 | XR ---
EXAMINATION TYPE: XR chest 2V DATE OF EXAM: 12/26/2019 COMPARISON: 12/24/2019 INDICATION: Chest pain TECHNIQUE: Frontal and lateral views of the chest are obtained. FINDINGS: The heart size is normal. The pulmonary vasculature is normal. There is mild increased lung markings present bilaterally. This is nonspecific. Correlate for volume overload. IMPRESSION: 1. Correlate for mild volume overload and pulmonary edema.
[2019-12-26 14:17] LABS: Prothrombin Time 10.4 sec (9.0-12.0)
[2019-12-26] MEDS ORDERED: NITROGLYCERIN SL TABS 0.4 MG TAB SUBLINGUAL PRN ×2 (14:36→16:15)
[2019-12-26 14:38] LABS: Partial Thromboplastin Time 21.2 sec (22.0-30.0)
[2019-12-26] MEDS ORDERED: LORazepam 1 MG TAB PO PRN (16:15)
[2019-12-26] MEDS ORDERED: ALPRAZolam 0.25 MG TAB PO PRN (16:19)
--- NOTE | 2019-12-26 17:19 | HP ---
HISTORY AND PHYSICAL DATE OF SERVICE: 12/26/2019 I am covering for Dr. Chaudhary. CHIEF COMPLAINT: Chest pain. HISTORY OF PRESENT ILLNESS: This 89-year-old woman with a past medical history of multiple medical problems including chest pain, history of CVA, TIA, GERD, hypertension, hyperlipidemia, history of myocardial infarction, past syncopal episode. Apparently had anterior part chest pain and the patient also had minimal troponin abnormality at 0.017, 0.14, 0.24 and was admitted to [facility] recently from Dr. Chaudhary's office. Cardiology saw the patient and a 2D echo with Doppler was done. The pain was apparently was not resolving and Cardiology saw the patient. A 2D echo with Doppler was also done during that admission which showed ejection fraction 55-60 percent and mild aortic regurgitation, mild aortic stenosis, moderate mild calcification and mildly valvular abnormalities. Today the patient woke up and had some heartburn and the pain got worse and the patient is on Prilosec that did not help and the patient became diaphoretic and shortness of breath and the patient came to [facility] and admitted for further evaluation and treatment. There is no history of fever, rigors or chills. No history of headache, loss of consciousness, seizures. Apparently the patient's is also admitted with pneumonia and being evaluated at this time. There is no history of fever, rigors. No history of any exposure to Covid-19. PAST MEDICAL: History of chest pain, history of CVA, TIA, GERD, hypertension, hyperlipidemia, history of myocardial infarction history of adenoidectomy, history of back surgery. MEDICATIONS: Home medications include: Clonidine, Norvasc, Zocor, Nitrostat, multivitamins, Myrbetriq, Ativan, Imdur, Zetia, Coreg, Ecotrin. ALLERGIES: OXYCODONE, CODEINE, MEPERIDINE, MORPHINE. FAMILY HISTORY: History of heart problems in the family. SOCIAL HISTORY: Previous history of smoking, no history of current smoking or alcohol intake. REVIEW OF SYSTEMS: ENT: Diminished vision. Diminished hearing. CARDIOVASCULAR: As mentioned earlier. RESPIRATION: As mentioned earlier. GI as mentioned earlier. no dysuria or hematuria. Nervous System: No numbness or weakness. ALLERGY/IMMUNOLOGY: No asthma or hayfever. MUSCULOSKELETAL as mentioned earlier. HEMATOLOGY/ONCOLOGY: No history of anemia. ENDOCRINE: No diabetes or hypothyroidism. CONSTITUTIONAL: As mentioned earlier. DERMATOLOGY: Negative. RHEUMATOLOGY: Negative. PSYCHIATRY: As mentioned. PHYSICAL EXAM: Alert and oriented times three. Pulse 72, blood pressure 140/64, respiration 16, temperature 97.2, pulse ox 94% on room air. HEENT: Conjunctivae normal. NECK: No JVD. CARDIOVASCULAR: S1, S2 muffled. RESPIRATION: Breath sounds diminished in the bases. A few scattered rhonchi. No crackles. ABDOMEN: Soft, nontender. No mass palpable. LEGS no edema. No swelling. NERVOUS SYSTEM: Higher functions as mentioned earlier. Moves all 4 limbs. No focal motor or sensory deficits. LYMPHATICS: No lymph nodes palpable in the neck, axillae or groin. SKIN: No ulcer, no rashes and no bleeding. JOINTS no active deforming arthropathy. LAB STUDIES: WBC 10, hemoglobin 9.7, sodium 135. ASSESSMENT: 1. Chest pain, possible unstable angina. 2. Dysphagia, rule out esophagitis. 3. Anemia, normocytic anemia of chronic disease. 4. Hyponatremia. 5. Hypoalbuminemia with mild protein calorie mild malnutrition. 6. History of chest pain, angina. 7. History of cerebrovascular accident, transient ischemic attack. 8. Gastroesophageal reflux disease. 9. Hypertension. 10.Hyperlipidemia. 11.History of myocardial infarction. 12.History of pneumonia. 13.History of syncopal episodes. 14.History of degenerative joint disease and chronic back pain. 15.History of urinary incontinence. 16.History of back fusion, degenerative joint disease. 17.History of anxiety. 18.Remote history of nicotine dependence. RECOMMENDATIONS AND DISCUSSION: This 89-year-old woman who presented with multiple complex medical issues, we will monitor the patient closely, continue the current medications, management and symptomatic treatment. Rule out myocardial infarction. Cardiology consultation. Also recommend Gastroenterology consultation for possible endoscopies. Otherwise, proton pump inhibitors. Resume the home medications. I would also recommend D-dimer; if it is positive, CT angio of the chest and discussed the patient and the family Further recommendations to follow. Dr. Chaudhary will follow tomorrow morning. MMTADL / IJN: [id number] / MTDD
[2019-12-26] MEDS: PANTOPRAZOLE 40 MG/10 ML VIAL IVP SCH ×2 (17:21→20:24)
[2019-12-26] MEDS ORDERED: NITROGLYCERIN OINT 1 INCH/GM PACKET TOPICAL SCH (18:00)
[2019-12-26] MEDS: carvediloL 12.5 MG TAB PO SCH (20:22)
[2019-12-26] MEDS: HEPARIN SODIUM,PORCINE 5,000 UNIT/ML 1 ML VIAL SQ SCH (20:22)
[2019-12-26] MEDS: cloNIDine HCL 0.1 MG TAB PO SCH (20:22)
[2019-12-26 20:51] LABS: Appearance,Urine Cloudy (Clear); Bilirubin,Urine Negative (Negative); Blood,Urine Negative (Negative); Color,Urine Yellow; Glucose,Urine (UA) Negative (Negative); Hyaline Casts,Urine 45 /lpf (0-2); Ketones,Urine Negative (Negative); Leukocyte Esterase,Urine Small (Negative); Mucus,Urine Occasional /hpf; Nitrite,Urine Negative (Negative); Protein,Urine 3+ (Negative); RBC,Urine 2 /hpf (0-5); Squamous Epithelial Cell,Urine <1 /hpf (0-4); Urobilinogen,Urine <2.0 mg/dL (<2.0); WBC,Urine 22 /hpf (0-5)
[2019-12-26] MEDS ORDERED: ATORVASTATIN 10 MG TAB PO SCH (21:00)
[2019-12-26] MEDS ORDERED: EZETIMIBE 10 MG TAB PO SCH (21:00)
[2019-12-27] MEDS: HEPARIN SODIUM,PORCINE 5,000 UNIT/ML 1 ML VIAL SQ SCH (08:13)
[2019-12-27] MEDS: PANTOPRAZOLE 40 MG/10 ML VIAL IVP SCH (08:13)
[2019-12-27] MEDS: carvediloL 12.5 MG TAB PO SCH (08:16)
[2019-12-27] MEDS: cloNIDine HCL 0.1 MG TAB PO SCH (08:16)
[2019-12-27 08:21] VITALS: RESP 16
--- NOTE | 2019-12-27 08:21 | P.PN ---
Subjective Progress Note Date: 12/27/19 Principal diagnosis: The patient's essentially for recurrent chest pain. Enzymatic elevations negative this time. Cardiology is not consulted probable stress testing today. Objective - Vital Signs Vital signs: Vital Signs Temp 97.8 F 12/27/19 03:00 Pulse 63 12/27/19 03:00 Resp 18 12/27/19 03:00 BP 180/69 12/27/19 03:00 Pulse Ox 94 L 12/27/19 03:00 Intake & Output 12/26/19 12/27/19 12/27/19 18:59 06:59 18:59 Intake Total 200 Balance 200 Weight 49.895 kg 49.6 kg Intake: Oral 200 Other: Voiding Method Toilet Toilet Incontinent Incontinent # Voids 1 1 - Constitutional General appearance: Present: average body habitus - EENT Eyes: Absent: abnormal pupil - Neck Neck: Absent: lymphadenopathy - Respiratory Respiratory: bilateral: CTA - Cardiovascular Rhythm: regular Heart sounds: normal: S1, S2 Abnormal Heart Sounds: Absent: S3 Gallop - Gastrointestinal General gastrointestinal: Present: soft. Absent: tenderness - Neurologic Neurologic: Absent: focal deficits - Labs CBC & Chem 7: 12/26/19 13:44 12/26/19 13:44 Labs: Abnormal Lab Results - Last 24 Hours (Table) 12/26/19 12/26/19 12/26/19 Range/Units 13:44 13:44 13:44 RBC 3.45 L (3.80-5.40) m/uL Hgb 9.7 L (11.4-16.0) gm/dL Hct 31.3 L (34.0-46.0) % APTT 21.2 L (22.0-30.0) sec Sodium 134 L (137-145) mmol/L Glucose 149 H (74-99) mg/dL Total Protein 6.0 L (6.3-8.2) g/dL Albumin 2.9 L (3.5-5.0) g/dL Urine Appearance (Clear) Urine Protein (Negative) Ur Leukocyte Esterase (Negative) Urine WBC (0-5) /hpf Hyaline Casts (0-2) /lpf Urine Mucus (None) /hpf 12/26/19 Range/Units 20:37 RBC (3.80-5.40) m/uL Hgb (11.4-16.0) gm/dL Hct (34.0-46.0) % APTT (22.0-30.0) sec Sodium (137-145) mmol/L Glucose (74-99) mg/dL Total Protein (6.3-8.2) g/dL Albumin (3.5-5.0) g/dL Urine Appearance Cloudy H (Clear) Urine Protein 3+ H (Negative) Ur Leukocyte Esterase Small H (Negative) Urine WBC 22 H (0-5) /hpf Hyaline Casts 45 H (0-2) /lpf Urine Mucus Occasional H (None) /hpf Assessment and Plan (1) Chest pain Current Visit: Yes Status: Acute Code(s): R07.9 - CHEST PAIN, UNSPECIFIED SNOMED Code(s): 64677493 (2) Unstable angina pectoris Current Visit: Yes Status: Acute Code(s): I20.0 - UNSTABLE ANGINA SNOMED Code(s): 7152464 (3) At risk for readmission to hospital Current Visit: No Status: Acute Code(s): Z91.89 - OTH PERSONAL RISK FACTORS, NOT ELSEWHERE CLASSIFIED SNOMED Code(s): 0122186293631 (4) HTN (hypertension) Current Visit: No Status: Acute Code(s): I10 - ESSENTIAL (PRIMARY) HYPERTENSION SNOMED Code(s): 36088806 Plan: Await cardiology type testing. The patient's medicines will be reconciled. Anticipate discharge in next 24 hours if cardiology clears
[2019-12-27 08:32] LABS: Basophils # (A) 0.1 k/uL (0-0.2); Basophils % (A) 1 %; Eosinophils # (A) 0.3 k/uL (0-0.7); Eosinophils % (A) 5 %; HGB 9.8 gm/dL (11.4-16.0); Hypochromasia Slight; Lymphocytes # (A) 1.5 k/uL (1.0-4.8); Lymphocytes % (A) 20 %; MCHC 31.8 g/dL (31.0-37.0); MCV 91.4 fL (80.0-100.0); Mean Platelet Volume 7.3; Monocytes # (A) 0.5 k/uL (0-1.0); Monocytes % (A) 6 %; Neutrophils # (A) 5.1 k/uL (1.3-7.7); Neutrophils % (A) 68 %; Platelet Count 329 k/uL (150-450); RBC 3.39 m/uL (3.80-5.40); RDW 15.8 % (11.5-15.5); WBC 7.5 k/uL (3.8-10.6)
[2019-12-27] MEDS ORDERED: REGADENOSON 0.4 MG/5 ML SYRINGE IV ONE (08:36)
[2019-12-27] MEDS ORDERED: CAFFEINE CITRATE 60 MG/3 ML VIAL IV PRN (08:36)
[2019-12-27] MEDS ORDERED: AMINOPHYLLINE 500 MG/20 ML VIAL IV PRN (08:36)
[2019-12-27 08:41] LABS: Calcium 8.6 mg/dL (8.4-10.2); Potassium 3.9 mmol/L (3.5-5.1)
[2019-12-27] MEDS ORDERED: ISOSORBIDE MONONITRATE ER 30 MG TAB.ER.24H PO SCH (09:00)
[2019-12-27] MEDS ORDERED: amLODIPine 5 MG TAB PO SCH (09:00)
[2019-12-27] MEDS ORDERED: ASPIRIN 81 MG PO SCH (09:00)
[2019-12-27] MEDS ORDERED: MULTIVITAMINS, THERA 1 EACH TAB PO SCH (09:00)
[2019-12-27] MEDS ORDERED: ASPIRIN 325 MG TAB PO SCH (09:00)
[2019-12-27] MEDS ORDERED: NON FORMULARY DRUG (Mirabegron [Myrbetriq] 25 MG Tab.Er.24h) PO SCH (09:00)
--- NOTE | 2019-12-27 10:28 | P.CRDCN ---
History of Present Illness Consult date: 12/27/19 Consult reason: chest pain Chief complaint: Chest pain History of present illness: This is a pleasant 89-year-old female who follows regularly with Dr. Spaulding in the office. She has a known history of hypertension, hyperlipidemia, GERD, prior TIA, history of Takotsubo cardiomyopathy, and mild CAD. She was admitted to the hospital this weekend with symptoms of chest and epigastric discomfort, she was seen in consultation by Dr. Davis, discharged home yesterday. Patient was scheduled to follow-up with Dr. Spaulding in the office today. Patient presented back to the hospital with symptoms of mids ternal, upper epigastric discomfort, pain, sharp in nature, she also states she had an associated episode of dizziness and diaphoresis with her symptoms. For this reason she came back to the hospital for further evaluation and treatment. Echocardiogram with Doppler study was performed this weekend which showed an ejection fraction of 55-60%. Her EKG showed a normal sinus rhythm with LVH strain pattern, chest x-ray showed questionable mild fluid overload. Her blood pressure 165/60, 190/70, heart rate in the 60s, respirations 18, white blood cell count 10.0, hemoglobin 9.7, platelet count 318. Sodium 134, potassium 3.8, BUN 15, creatinine 0.9. Troponins have been negative 3. Magnesium 1.7 and d- dimer 0.05. At the time of my examination this morning, the patient is currently chest pain-free. Past Medical History Past Medical History: Chest Pain / Angina, CVA/TIA, GERD/Reflux, Hyperlipidemia, Hypertension, Myocardial Infarction ([place]), Pneumonia, Syncope Additional Past Medical History / Comment(s): Past syncopal episodes, TIAs, UTIs, DJD spin, chronic back pain, arthritis hands, diverticular disease.urinary incontinence- wears briefs Last Myocardial Infarction Date:: 11/16/2010 History of Any Multi-Drug Resistant Organisms: None Reported Past Surgical History: Adenoidectomy, Appendectomy, Back Surgery, Cholecystectomy, Heart Catheterization, Hysterectomy, Tonsillectomy Additional Past Surgical History / Comment(s): cardiac caths in 2010 and 2013, back fusion/discectomy, colonoscopy, bilateral cataract removal with lens implants, Past Anesthesia/Blood Transfusion Reactions: Postoperative Nausea & Vomiting (PONV) Past Psychological History: Anxiety Additional Psychological History / Comment(s): takes ativan for anxiety Smoking Status: Former smoker Past Alcohol Use History: None Reported Additional Past Alcohol Use History / Comment(s): Pt states she started smoking in 1949 and quit in 1975. She will have an occasional glass of wine. Past Drug Use History: None Reported - Past Family History Father Additional Family Medical History / Comment(s): Father at the age of 57yrs with "heart problems". Mother Additional Family Medical History / Comment(s): Mother had an enlarged heart. She at the age of 79yrs. Medications and Allergies Home Medications Medication Instructions Recorded Confirmed Type Carvedilol 25 mg PO BID 12/18/13 12/26/19 History Isosorbide Mononitrate [Imdur] 30 mg PO DAILY 12/18/13 12/26/19 History Multivitamin/Iron/Folic Acid 1 tab PO DAILY 11/17/15 12/26/19 History [Centrum Complete Multivit Tab] Aspirin EC [Ecotrin Low Dose] 81 mg PO DAILY 09/16/18 12/26/19 History Ezetimibe [Zetia] 10 mg PO HS 12/26/18 12/26/19 History LORazepam [Ativan] 1 mg PO BID PRN 12/26/18 12/26/19 History Simvastatin [Zocor] 20 mg PO HS 12/26/18 12/26/19 History cloNIDine HCL 0.3 mg PO BID 12/26/18 12/26/19 History Mirabegron [Myrbetriq] 25 mg PO DAILY 12/24/19 12/26/19 History Nitroglycerin Sl Tabs [Nitrostat] 0.4 mg SUBLINGUAL Q5M PRN 12/24/19 12/26/19 History amLODIPine [Norvasc] 5 mg PO DAILY 12/24/19 12/26/19 History Allergies Allergy/AdvReac Type Severity Reaction Status Date / Time oxycodone [From Percocet] Allergy Unknown Verified 12/24/19 11:55 codeine AdvReac Nausea & Verified 12/24/19 11:55 Vomiting meperidine HCl [From Demerol] AdvReac Nausea & Verified 12/24/19 11:55 Vomiting morphine AdvReac Nausea & Verified 12/24/19 11:55 Vomiting Physical Exam Vitals: Vital Signs Temp Pulse Pulse Resp BP BP Pulse Ox 12/27/19 08:20 97.8 F 68 16 190/70 96 12/27/19 03:00 97.8 F 63 18 180/69 94 L 12/26/19 21:00 18 12/26/19 20:34 97.4 F L 65 18 165/62 97 12/26/19 15:20 60 20 12/26/19 15:10 97.8 F 60 20 144/67 96 12/26/19 13:36 97.6 F 72 19 147/65 95 Intake and Output 12/26/19 12/27/19 12/27/19 22:59 06:59 14:59 Intake Total 200 Balance 200 Intake: Oral 200 Other: Voiding Method Toilet Toilet Toilet Incontinent Incontinent Incontinent # Voids 1 1 Weight 49.895 kg 49.6 kg PHYSICAL EXAMINATION: This is a 89-year-old female in no apparent distress at the time of my examination. VITAL SIGNS: Blood pressure 182/69, heart rate 77, respirations 16, temp 98F. Patient is 96 % on . HEENT: Head is atraumatic, normocephalic. Pupils are equal, round. Sclerae anicteric. Conjunctivae are clear. Mucous membranes of the mouth are moist. Neck is supple. There is no elevated jugular venous pressure. No carotid bruit is heard. CHEST EXAMINATION: Clear to auscultation bilaterally. No wheezes rales or rhonchi. Respirations even and nonlabored. HEART EXAMINATION: Heart regular, positive S1 and S2. No S3. No S4. With a systolic murmur at the base. ABDOMEN: Soft, nontender. Bowel sounds are heard. No organomegaly noted. EXTREMITIES: 2+ peripheral pulses with no evidence of peripheral edema and no calf tenderness noted. NEUROLOGIC EXAMINATION: Patient is awake, alert and oriented x3. Results 12/27/19 07:52 12/27/19 07:52 Cardiac Enzymes 12/26/19 12/26/19 12/26/19 Range/Units 13:44 13:44 16:35 AST 29 (14-36) U/L Troponin I <0.012 <0.012 (0.000-0.034) ng/mL 12/26/19 Range/Units 19:34 AST (14-36) U/L Troponin I <0.012 (0.000-0.034) ng/mL Coagulation 12/26/19 Range/Units 13:44 PT 10.4 (9.0-12.0) sec APTT 21.2 L (22.0-30.0) sec Lipids 12/27/19 Range/Units 07:52 Triglycerides 80 (<150) mg/dL Cholesterol 128 (<200) mg/dL HDL Cholesterol 65 H (40-60) mg/dL CBC 12/26/19 12/27/19 Range/Units 13:44 07:52 WBC 10.0 7.5 (3.8-10.6) k/uL RBC 3.45 L 3.39 L (3.80-5.40) m/uL Hgb 9.7 L 9.8 L (11.4-16.0) gm/dL Hct 31.3 L 31.0 L (34.0-46.0) % Plt Count 318 329 (150-450) k/uL Comprehensive Metabolic Panel 12/26/19 12/27/19 Range/Units 13:44 07:52 Sodium 134 L 137 (137-145) mmol/L Potassium 3.8 3.9 (3.5-5.1) mmol/L Chloride 103 104 (98-107) mmol/L Carbon Dioxide 26 29 (22-30) mmol/L BUN 15 12 (7-17) mg/dL Creatinine 0.98 0.81 (0.52-1.04) mg/dL Glucose 149 H 100 H (74-99) mg/dL Calcium 8.5 8.6 (8.4-10.2) mg/dL AST 29 (14-36) U/L ALT 16 (4-34) U/L Alkaline Phosphatase 95 (38-126) U/L Total Protein 6.0 L (6.3-8.2) g/dL Albumin 2.9 L (3.5-5.0) g/dL Current Medications Generic Name Dose Route Start Last Admin Trade Name Freq PRN Reason Stop Dose Admin Alprazolam 0.25 mg 12/26/19 16:19 Alprazolam 0.25 Mg Tab PO TID PRN Anxiety Aminophylline 100 mg 12/27/19 08:36 Aminophylline 500 Mg/20 Ml Vial IV 12/27/19 12:30 ONCE PRN Patient Response Amlodipine Besylate 5 mg 12/27/19 09:00 12/27/19 08:13 Amlodipine 5 Mg Tab PO 5 mg DAILY LUCITA Administration Aspirin 81 mg 12/28/19 09:00 Aspirin 81 Mg PO DAILY [facility] Atorvastatin Calcium 10 mg 12/26/19 21:00 12/26/19 20:22 Atorvastatin 10 Mg Tab PO 10 mg HS LUCITA Administration Caffeine Citrate 60 mg 12/27/19 08:36 Caffeine Citrate 60 Mg/3 Ml Vial IV 12/27/19 12:30 ONCE PRN Patient Response Carvedilol 25 mg 12/26/19 21:00 12/27/19 08:16 Carvedilol 12.5 Mg Tab PO Not Given BID [facility] Clonidine 0.3 mg 12/26/19 21:00 12/27/19 08:16 Clonidine Hcl 0.1 Mg Tab PO Not Given BID LUCITA Ezetimibe 10 mg 12/26/19 21:00 12/26/19 20:22 Ezetimibe 10 Mg Tab PO 10 mg HS LUCITA Administration Heparin Sodium (Porcine) 5,000 unit 12/26/19 21:00 12/27/19 08:13 Heparin Sodium,Porcine 5,000 Unit/Ml 1 Ml Vial SQ 5,000 unit Q12HR LUCITA Administration Isosorbide Mononitrate 30 mg 12/27/19 09:00 12/27/19 08:13 Isosorbide Mononitrate Er 30 Mg Tab.Er.24h PO 30 mg DAILY LUCITA Administration Lorazepam 1 mg 12/26/19 16:15 12/26/19 22:30 Lorazepam 1 Mg Tab PO 1 mg BID PRN Administration Anxiety Multivitamins 1 each 12/27/19 09:00 12/27/19 08:12 Multivitamins, Thera 1 Each Tab PO 1 each DAILY LUCITA Administration Nitroglycerin 0.4 mg 12/26/19 16:15 Nitroglycerin Sl Tabs 0.4 Mg Tab SUBLINGUAL Q5M PRN Chest Pain Non-Formulary Medication 25 mg 12/27/19 09:00 12/27/19 08:15 Mirabegron [Myrbetriq] PO Not Given DAILY [facility] Pantoprazole Sodium 40 mg 12/26/19 16:19 12/27/19 08:13 Pantoprazole 40 Mg/10 Ml Vial IVP 40 mg BID LUCITA Administration Intake and Output 12/26/19 12/27/19 12/27/19 22:59 06:59 14:59 Intake Total 200 Balance 200 Intake: Oral 200 Other: Voiding Method Toilet Toilet Toilet Incontinent Incontinent Incontinent # Voids 1 1 Weight 49.895 kg 49.6 kg 12/27/19 07:52 12/27/19 07:52 EKG Interpretations (text) EKG shows a normal sinus rhythm with LVH strain, no acute changes noted. Assessment and Plan Plan: Assessment and plan #1 symptoms of chest discomfort, somewhat atypical in nature. Troponins are negative 3. EKG shows a normal sinus rhythm with LVH strain pattern. Discomfort could be secondary to accelerated hypertension. #2 intermittent accelerated hypertension #3 hyperlipidemia #4 prior TIA #5 GERD #6 history of TIAs #7hx of Takotsubo cardiomyopathy #8 mild coronary artery disease by cardiac catheterization performed in 2013 Plan The patient just had an echo performed this weekend which revealed a normal left ventricular systolic function. We will schedule her to undergo a Lexiscan stress test today. Based on that, and the patient's overall clinical course further recommendations will be made. DNP note has been reviewed, I agree with a documented findings and plan of care. Patient was seen and examined.
[2019-12-27] MEDS ORDERED: carvediloL 12.5 MG TAB PO STA (10:45)
[2019-12-27] MEDS ORDERED: cloNIDine HCL 0.1 MG TAB PO STA (11:32)
--- NOTE | 2019-12-27 12:41 | NM ---
EXAMINATION TYPE: NM stress lexiscan cardiolite DATE OF EXAM: 12/27/2019 COMPARISON: NONE HISTORY: Chest pain TECHNIQUE: After the intravenous administration of 10.6 mCi Tc 99m Sestamibi - Cardiolite resting SP ECT images acquired 50 minutes post injection. The patient received 0.4mg Lexiscan, 26.1 mCi Tc 99m Sestamibi - Stress images obtained [address] injection FINDINGS: Review of stress and rest SPECT images demonstrates no distinct perfusion abnormality. Gated analysi s shows normal wall motion with an estimated left ventricular ejection fraction of 74 %. IMPRESSION: No scintigraphic evidence for reversible ischemia.
--- NOTE | 2019-12-27 14:30 | EST ---
EXERCISE STRESS DATE OF SERVICE: December 27, 2019. INDICATION: Chest pain. AGE.: 89 SEX: F HT: 59" WT: 109 lbs PROTOCOL: Lexiscan Cardiolite STAGE: DURATION OF EXERCISE: HEART RATE REST: 72 BLOOD PRESSURE REST: 197/82 MAXIMUM HEART RATE ACHIEVED: 91 MAXIMUM BLOOD PRESSURE: 222/89 85% MPHR: 113 100% MPHR: 133 METS: STRESS DATA: Heart rate 72, pressure is 197/82 mmHg. Baseline EKG showed sinus mechanism. 0.4 mg of Lexiscan given over 15 seconds per protocol. Max heart rate was 91 beats per minute. Maximum pressure was 222/89 mmHg. Clinically, the patient did not have any symptoms and the EKG did not show any significant ST or T-wave abnormalities concerning for ischemia. CONCLUSION: 1. Nondiagnostic electrocardiogram stress testing in response to Lexiscan. 2. Please follow up on the Cardiolite portion on a separate report from Radiology Department. MMODL / IJN: [id number] /
[2019-12-27 14:53] VITALS: BP 138/58; PULSE 67; TEMP 97.4
[2019-12-27 14:58] VITALS: BMI 22.1
--- NOTE | 2019-12-27 17:13 | P.DS ---
Providers Date of admission: 12/26/19 14:36 Attending physician: Uri Chaudhary Consults: 12/26/19 14:36 Consult Physician Urgent Consulting Provider: [facility] Consult Reason/Comments: Chest pain Do you want consulting provider notified?: Yes 12/26/19 16:16 Consult Physician Routine Consulting Provider: Tiffanie Burnett Consult Reason/Comments: DYSPHAGIA- ESOPHAGITIS?? Do you want consulting provider notified?: Yes Primary care physician: Uri Chaudhary - Discharge Diagnosis(es) (1) Chest pain Current Visit: Yes Status: Acute (2) Unstable angina pectoris Current Visit: Yes Status: Acute (3) At risk for readmission to hospital Current Visit: No Status: Acute (4) HTN (hypertension) Current Visit: No Status: Acute Hospital Course: The patient is a 89-year-old white female essentially admitted for chest pressure. Stress testing was negative and the patient is not stabilizing. We suspect that this is has significant stress due to the fact that her is also quite ill and hospitalized. Patient Condition at Discharge: Good Plan - Discharge Summary Discharge Rx Participant: No New Discharge Prescriptions: Continue RX: Isosorbide Mononitrate [Imdur] 30 mg PO DAILY RX: Carvedilol 25 mg PO BID RX: Multivitamin/Iron/Folic Acid [Centrum Complete Multivit Tab] 1 tab PO DAILY RX: Aspirin EC [Ecotrin Low Dose] 81 mg PO DAILY RX: Simvastatin [Zocor] 20 mg PO HS RX: cloNIDine HCL 0.3 mg PO BID RX: LORazepam [Ativan] 1 mg PO BID PRN PRN Reason: Anxiety RX: Ezetimibe [Zetia] 10 mg PO HS RX: Mirabegron [Myrbetriq] 25 mg PO DAILY RX: amLODIPine [Norvasc] 5 mg PO DAILY RX: Nitroglycerin Sl Tabs [Nitrostat] 0.4 mg SUBLINGUAL Q5M PRN PRN Reason: Chest Pain Discharge Medication List RX: Carvedilol 25 mg PO BID 12/18/13 [History] RX: Isosorbide Mononitrate [Imdur] 30 mg PO DAILY 12/18/13 [History] RX: Multivitamin/Iron/Folic Acid [Centrum Complete Multivit Tab] 1 tab PO DAILY 11/17/15 [History] RX: Aspirin EC [Ecotrin Low Dose] 81 mg PO DAILY 09/16/18 [History] RX: Ezetimibe [Zetia] 10 mg PO HS 12/26/18 [History] RX: LORazepam [Ativan] 1 mg PO BID PRN 12/26/18 [History] RX: Simvastatin [Zocor] 20 mg PO HS 12/26/18 [History] RX: cloNIDine HCL 0.3 mg PO BID 12/26/18 [History] RX: Mirabegron [Myrbetriq] 25 mg PO DAILY 12/24/19 [History] RX: Nitroglycerin Sl Tabs [Nitrostat] 0.4 mg SUBLINGUAL Q5M PRN 12/24/19 [History] RX: amLODIPine [Norvasc] 5 mg PO DAILY 12/24/19 [History] Follow up Appointment(s)/Referral(s): Uri Chaudhary MD [Primary Care Provider] - 1-2 days [facility], [NON-STAFF] - 1-2 Days Oz Spaulding MD [STAFF PHYSICIAN] - 1 Week Patient Instructions/Handouts: Chest Pain (DC), Dizziness (GEN)
[2019-12-27] MEDS ORDERED: PANTOPRAZOLE 40 MG TABLET PO SCH (17:30)
[2019-12-28] MEDS ORDERED: ASPIRIN 81 MG PO SCH (09:00)
== END 2019-12-27 18:02 ==
LOC: EC 13:33 → 3NCARDOBS 14:36
PROVIDERS: ADMIT Family Medicine; ATTEND Family Medicine
DX: I25.110 Atherosclerotic heart disease of native coronary artery with unstable angina pectoris (principal); I11.9 Hypertensive heart disease without heart failure; R13.10 Dysphagia, unspecified; E87.1 Hypo-osmolality and hyponatremia; E88.09 Other disorders of plasma-protein metabolism, not elsewhere classified; E44.1 Mild protein-calorie malnutrition; Z68.21 Body mass index [BMI] 21.0-21.9, adult; K21.9 Gastro-esophageal reflux disease without esophagitis; E78.5 Hyperlipidemia, unspecified; Z91.89 Other specified personal risk factors, not elsewhere classified; I25.2 Old myocardial infarction; Z86.73 Personal history of transient ischemic attack (TIA), and cerebral infarction without residual deficits; Z87.01 Personal history of pneumonia (recurrent); Z87.440 Personal history of urinary (tract) infections; G89.29 Other chronic pain; M54.9 Dorsalgia, unspecified; R32 Unspecified urinary incontinence; M19.042 Primary osteoarthritis, left hand; M19.041 Primary osteoarthritis, right hand; K57.90 Diverticulosis of intestine, part unspecified, without perforation or abscess without bleeding; Z90.49 Acquired absence of other specified parts of digestive tract; Z90.710 Acquired absence of both cervix and uterus; Z98.1 Arthrodesis status; F41.9 Anxiety disorder, unspecified; Z87.891 Personal history of nicotine dependence; Z82.49 Family history of ischemic heart disease and other diseases of the circulatory system; Z79.82 Long term (current) use of aspirin; Z79.899 Other long term (current) drug therapy; Z88.5 Allergy status to narcotic agent
CPT/HCPCS: 93005 ×2; 96372 ×2; 96374; 96376 ×2; 99285; 36415; 93017; 85379; 83880; 80061; 80053; 80048; 83735; 84484; 85025 ×2; 85610; 85730; 81001; 71046; 78452; G0378 ×2; A9500; J1644 ×2; J2785; C9113 ×2

== ENCOUNTER 2020-01-02 13:51 | Observation (INO) | payer MEDICARE, BC ==
[2020-01-02] MEDS ORDERED: SODIUM CHLORIDE 0.9% 500 ML 500 ML IV ONE (14:01)
[2020-01-02] MEDS: SODIUM CHLORIDE 0.9% 1,000 ML IV SCH (14:31)
[2020-01-02 14:45] LABS: Basophils % (A) 0 %; Eosinophils # (A) 0.2 k/uL (0-0.7); Eosinophils % (A) 2 %; HCT 30.4 % (34.0-46.0); HGB 9.5 gm/dL (11.4-16.0); Hypochromasia Slight; Lymphocytes # (A) 1.4 k/uL (1.0-4.8); Lymphocytes % (A) 12 %; MCH 29.2 pg (25.0-35.0); MCHC 31.3 g/dL (31.0-37.0); MCV 93.2 fL (80.0-100.0); Mean Platelet Volume 7.4; Monocytes # (A) 0.6 k/uL (0-1.0); Monocytes % (A) 5 %; Neutrophils # (A) 9.4 k/uL (1.3-7.7); Neutrophils % (A) 80 %; Platelet Count 315 k/uL (150-450); RBC 3.27 m/uL (3.80-5.40); RDW 15.7 % (11.5-15.5); WBC 11.8 k/uL (3.8-10.6)
--- NOTE | 2020-01-02 15:17 | XR ---
EXAMINATION TYPE: XR chest 2V DATE OF EXAM: 01/02/2020 COMPARISON: 12/26/2019 HISTORY: Syncope TECHNIQUE: FINDINGS: Heart size is normal. Thoracic aorta is atheromatous. There is no heart failure. There is g eneral coarsening interstitial density in the lungs. There is osteopenia. There is no pleural effusio n. There is thoracic dextroscoliosis. IMPRESSION: Pulmonary interstitial fibrosis. No change compared to old exam. Atheromatous aorta.
[2020-01-02 15:25] LABS: Potassium 3.3 mmol/L (3.5-5.1)
[2020-01-02 15:26] LABS: Albumin 2.6 g/dL (3.5-5.0); Calcium 8.8 mg/dL (8.4-10.2); Total Bilirubin 0.3 mg/dL (0.2-1.3); Total Protein 5.5 g/dL (6.3-8.2)
[2020-01-02] MEDS ORDERED: NALOXONE 0.4 MG/ML 1 ML VIAL IV PRN (15:31)
[2020-01-02] MEDS ORDERED: POTASSIUM CHLORIDE ER 20 MEQ TAB.ER PO STA (15:34)
--- NOTE | 2020-01-02 15:35 | ED ---
General Adult HPI - General Chief complaint: Dizziness Stated complaint: DEHYDRATION Time Seen by Provider: 01/02/20 13:53 Source: patient Mode of arrival: EMS Limitations: no limitations - History of Present Illness Initial comments: A 89-year-old feel presenting today for chief complaint of possible dehydration. She states that she feels lightheaded when she stands up she states she had episode where she felt like she was almost going to pass out after she stood up however she did not loose consciousness. She states that they took her blood pressure is 90/40. They thought that this was too low and called EMS patient then presented to the ER EMS states upon arrival patient's blood pressure was normal. They state the patient has no other complaints denies a chest pain shortness of breath nausea vomiting jaw pain arm pain and back pain she denies any dysuria urgency frequency fevers or additional complaints upon arrival patient appears well nontoxic and is in good spirits - Related Data Home Medications Medication Instructions Recorded Confirmed Carvedilol 25 mg PO BID 12/18/13 01/02/20 Isosorbide Mononitrate [Imdur] 30 mg PO DAILY 12/18/13 01/02/20 Multivitamin/Iron/Folic Acid 1 tab PO DAILY 11/17/15 01/02/20 [Centrum Complete Multivit Tab] Aspirin EC [Ecotrin Low Dose] 81 mg PO DAILY 09/16/18 01/02/20 Ezetimibe [Zetia] 10 mg PO HS 12/26/18 01/02/20 LORazepam [Ativan] 1 mg PO BID PRN 12/26/18 01/02/20 Simvastatin [Zocor] 20 mg PO HS 12/26/18 01/02/20 cloNIDine HCL 0.3 mg PO BID 12/26/18 01/02/20 Mirabegron [Myrbetriq] 25 mg PO DAILY 12/24/19 01/02/20 Nitroglycerin Sl Tabs [Nitrostat] 0.4 mg SUBLINGUAL Q5M PRN 12/24/19 01/02/20 amLODIPine [Norvasc] 5 mg PO DAILY 12/24/19 01/02/20 Allergies Allergy/AdvReac Type Severity Reaction Status Date / Time oxycodone [From Percocet] Allergy Unknown Verified 01/02/20 16:26 codeine AdvReac Nausea & Verified 01/02/20 16:26 Vomiting meperidine HCl [From Demerol] AdvReac Nausea & Verified 01/02/20 16:26 Vomiting morphine AdvReac Nausea & Verified 01/02/20 16:26 Vomiting Review of Systems ROS Statement: Those systems with pertinent positive or pertinent negative responses have been documented in the HPI. ROS Other: All systems not noted in ROS Statement are negative. Past Medical History Past Medical History: Chest Pain / Angina, CVA/TIA, GERD/Reflux, Hyperlipidemia, Hypertension, Myocardial Infarction ([place]), Pneumonia, Syncope Additional Past Medical History / Comment(s): Past syncopal episodes, TIAs, UTIs, DJD spin, chronic back pain, arthritis hands, diverticular disease.urinary incontinence- wears briefs Last Myocardial Infarction Date:: 11/16/2010 History of Any Multi-Drug Resistant Organisms: None Reported Past Surgical History: Adenoidectomy, Appendectomy, Back Surgery, Cholecystectomy, Heart Catheterization, Hysterectomy, Tonsillectomy Additional Past Surgical History / Comment(s): cardiac caths in 2010 and 2013, back fusion/discectomy, colonoscopy, bilateral cataract removal with lens implants, Past Anesthesia/Blood Transfusion Reactions: Postoperative Nausea & Vomiting (P ONV) Past Psychological History: Anxiety Smoking Status: Former smoker Past Alcohol Use History: None Reported Past Drug Use History: None Reported - Past Family History Father Additional Family Medical History / Comment(s): Father at the age of 57yrs with "heart problems". Mother Additional Family Medical History / Comment(s): Mother had an enlarged heart. She at the age of 79yrs. General Exam - General Exam Comments Initial Comments: General: The patient is awake and alert, in no distress Eye: +3 mm pupils are equal, round and reactive to light, extra-ocular movements are intact. No nystagmus. There is normal conjunctiva bilaterally. No signs of icterus. Ears, nose, mouth and throat: There are moist mucous membranes and no oral lesions. Neck: The neck is supple, there is no tenderness or JVD. Cardiovascular: There is a regular rate and rhythm. No murmur, rub or gallop is appreciated. Respiratory: Lungs are clear to auscultation, respirations are non-labored, breath sounds are equal. No wheezes, stridor, rales, or rhonchi. Gastrointestinal: Soft, non-distended, non-tender abdomen without masses or organomegaly noted. There is no rebound or guarding present. Musculoskeletal: Normal ROM, no tenderness. Strength 5/5. Sensation intact. Radial pulses equal bilaterally 2+. Neurological: A&O x 3. CN II-XII intact grossly, There are no obvious motor or sensory deficits. Coordination appears grossly intact. Speech is normal. Skin: Skin is warm and dry and no rashes or lesions are noted. No LE edema. Psychiatric: Cooperative, appropriate mood & affect, normal judgment. Limitations: no limitations Course Vital Signs 01/02/20 01/02/20 01/02/20 14:04 14:42 16:14 Temperature 97.5 F L 97.8 F Pulse Rate 77 78 Pulse Rate [ 81 Sitting] Pulse Rate [ 51 L Standing] Pulse Rate [ 75 Supine] Respiratory 16 16 Rate Blood Pressure 116/49 144/62 Blood Pressure 158/64 [Sitting] Blood Pressure 140/60 [Standing] Blood Pressure 141/60 [Supine] O2 Sat by Pulse 96 97 Oximetry Medical Decision Making - Medical Decision Making 89 yo female presenting for low BP. Normal on arrival of EMS, WNL here. Patient from sitting to standing orthostatic. patient presyncope. Cr significantly elevated from baseline suspect pre renal (decreased oral intake, lips dry). Patient is agreeable to admission for IV hydration. Discussed case with attending Dr. Agustin who is agreeable to admission and care plan. Potassium replaced orally. - Lab Data Result diagrams: 01/02/20 14:14 01/02/20 14:14 Lab Results 01/02/20 01/02/20 01/02/20 Range/Units 14:14 14:14 14:14 WBC 11.8 H (3.8-10.6) k/uL RBC 3.27 L (3.80-5.40) m/uL Hgb 9.5 L (11.4-16.0) gm/dL Hct 30.4 L (34.0-46.0) % MCV 93.2 (80.0-100.0) fL MCH 29.2 (25.0-35.0) pg MCHC 31.3 (31.0-37.0) g/dL RDW 15.7 H (11.5-15.5) % Plt Count 315 (150-450) k/uL Neutrophils % 80 % Lymphocytes % 12 % Monocytes % 5 % Eosinophils % 2 % Basophils % 0 % Neutrophils # 9.4 H (1.3-7.7) k/uL Lymphocytes # 1.4 (1.0-4.8) k/uL Monocytes # 0.6 (0-1.0) k/uL Eosinophils # 0.2 (0-0.7) k/uL Basophils # 0.0 (0-0.2) k/uL Hypochromasia Slight Sodium 136 L (137-145) mmol/L Potassium 3.3 L (3.5-5.1) mmol/L Chloride 104 (98-107) mmol/L Carbon Dioxide 28 (22-30) mmol/L Anion Gap 4 mmol/L BUN 21 H (7-17) mg/dL Creatinine 1.38 H (0.52-1.04) mg/dL Est GFR (CKD-EPI)AfAm 40 (>60 ml/min/1.73 sqM) Est GFR (CKD-EPI)NonAf 34 (>60 ml/min/1.73 sqM) Glucose 226 H (74-99) mg/dL Calcium 8.8 (8.4-10.2) mg/dL Total Bilirubin 0.3 (0.2-1.3) mg/dL AST 24 (14-36) U/L ALT 14 (4-34) U/L Alkaline Phosphatase 83 (38-126) U/L Troponin I <0.012 (0.000-0.034) ng/mL Total Protein 5.5 L (6.3-8.2) g/dL Albumin 2.6 L (3.5-5.0) g/dL Urine Color Urine Appearance (Clear) Urine pH (5.0-8.0) Ur Specific [place] (1.001-1.035) Urine Protein (Negative) Urine Glucose (UA) (Negative) Urine Ketones (Negative) Urine Blood (Negative) Urine Nitrite (Negative) Urine Bilirubin (Negative) Urine Urobilinogen (<2.0) mg/dL Ur Leukocyte Esterase (Negative) Urine RBC (0-5) /hpf Urine WBC (0-5) /hpf Ur Squamous Epith Cells (0-4) /hpf Amorphous Sediment (None) /hpf Urine Bacteria (None) /hpf Hyaline Casts (0-2) /lpf Urine Mucus (None) /hpf 01/02/20 Range/Units 15:28 WBC (3.8-10.6) k/uL RBC (3.80-5.40) m/uL Hgb (11.4-16.0) gm/dL Hct (34.0-46.0) % MCV (80.0-100.0) fL MCH (25.0-35.0) pg MCHC (31.0-37.0) g/dL RDW (11.5-15.5) % Plt Count (150-450) k/uL Neutrophils % % Lymphocytes % % Monocytes % % Eosinophils % % Basophils % % Neutrophils # (1.3-7.7) k/uL Lymphocytes # (1.0-4.8) k/uL Monocytes # (0-1.0) k/uL Eosinophils # (0-0.7) k/uL Basophils # (0-0.2) k/uL Hypochromasia Sodium (137-145) mmol/L Potassium (3.5-5.1) mmol/L Chloride (98-107) mmol/L Carbon Dioxide (22-30) mmol/L Anion Gap mmol/L BUN (7-17) mg/dL Creatinine (0.52-1.04) mg/dL Est GFR (CKD-EPI)AfAm (>60 ml/min/1.73 sqM) Est GFR (CKD-EPI)NonAf (>60 ml/min/1.73 sqM) Glucose (74-99) mg/dL Calcium (8.4-10.2) mg/dL Total Bilirubin (0.2-1.3) mg/dL AST (14-36) U/L ALT (4-34) U/L Alkaline Phosphatase (38-126) U/L Troponin I (0.000-0.034) ng/mL Total Protein (6.3-8.2) g/dL Albumin (3.5-5.0) g/dL Urine Color Yellow Urine Appearance Cloudy H (Clear) Urine pH 5.5 (5.0-8.0) Ur Specific [place] 1.031 (1.001-1.035) Urine Protein 3+ H (Negative) Urine Glucose (UA) Trace H (Negative) Urine Ketones Trace H (Negative) Urine Blood Trace H (Negative) Urine Nitrite Negative (Negative) Urine Bilirubin Negative (Negative) Urine Urobilinogen <2.0 (<2.0) mg/dL Ur Leukocyte Esterase Large H (Negative) Urine RBC 8 H (0-5) /hpf Urine WBC 90 H (0-5) /hpf Ur Squamous Epith Cells 2 (0-4) /hpf Amorphous Sediment Occasional H (None) /hpf Urine Bacteria Rare H (None) /hpf Hyaline Casts 168 H (0-2) /lpf Urine Mucus Rare H (None) /hpf Disposition Clinical Impression: Dehydration, Increased creatine kinase level, Orthostatic hypotension Disposition: ADMITTED IP TO THIS [facility] Condition: Good Time of Disposition: 16:48
[2020-01-02 15:42] LABS: Amorphous Sediment,Urine Occasional /hpf; Appearance,Urine Cloudy (Clear); Bacteria,Urine Rare /hpf; Bilirubin,Urine Negative (Negative); Blood,Urine Trace (Negative); Color,Urine Yellow; Glucose,Urine (UA) Trace (Negative); Hyaline Casts,Urine 168 /lpf (0-2); Ketones,Urine Trace (Negative); Leukocyte Esterase,Urine Large (Negative); Mucus,Urine Rare /hpf; Nitrite,Urine Negative (Negative); PH, Urine 5.5 (5.0-8.0); Protein,Urine 3+ (Negative); RBC,Urine 8 /hpf (0-5); Specific Gravity,Urine 1.031 (1.001-1.035); Squamous Epithelial Cell,Urine 2 /hpf (0-4); Urobilinogen,Urine <2.0 mg/dL (<2.0); WBC,Urine 90 /hpf (0-5)
[2020-01-02] MEDS ORDERED: LORazepam 1 MG TAB PO PRN (17:28)
[2020-01-02] MEDS ORDERED: NITROGLYCERIN SL TABS 0.4 MG TAB SUBLINGUAL PRN (17:28)
[2020-01-02] MEDS ORDERED: Potassium Replacement Protocol 1 EACH MISC MISCELLANE PRN (17:36)
[2020-01-02] MEDS: POTASSIUM CHLORIDE ER 20 MEQ TAB.ER PO SCH ×2 (18:28→21:33)
[2020-01-02] MEDS: carvediloL 12.5 MG TAB PO SCH (18:30)
[2020-01-02] MEDS ORDERED: ATORVASTATIN 10 MG TAB PO SCH (21:00)
[2020-01-02] MEDS ORDERED: EZETIMIBE 10 MG TAB PO SCH (21:00)
[2020-01-02] MEDS: cloNIDine HCL 0.1 MG TAB PO SCH (21:44)
[2020-01-03 03:34] VITALS: TEMP 98.2
[2020-01-03] MEDS: SODIUM CHLORIDE 0.9% 1,000 ML IV SCH (03:45)
[2020-01-03] MEDS: carvediloL 12.5 MG TAB PO SCH (07:48)
[2020-01-03] MEDS: cloNIDine HCL 0.1 MG TAB PO SCH (07:48)
[2020-01-03 08:11] LABS: Calcium 8.5 mg/dL (8.4-10.2); Potassium 4.4 mmol/L (3.5-5.1)
[2020-01-03] MEDS ORDERED: amLODIPine 5 MG TAB PO SCH (09:00)
[2020-01-03] MEDS ORDERED: ISOSORBIDE MONONITRATE ER 30 MG TAB.ER.24H PO SCH (09:00)
[2020-01-03] MEDS ORDERED: ASPIRIN 81 MG PO SCH (09:00)
[2020-01-03] MEDS ORDERED: MULTIVITAMINS, THERA 1 EACH TAB PO SCH (09:00)
[2020-01-03] MEDS ORDERED: NON FORMULARY DRUG (Mirabegron [Myrbetriq] 25 MG Tab.Er.24h) PO SCH (09:00)
[2020-01-03 09:38] VITALS: PULSE 73; RESP 17
[2020-01-03 10:12] VITALS: BP 177/73
--- NOTE | 2020-01-03 12:47 | P.DS ---
Providers Date of admission: 01/02/20 15:56 Attending physician: Uri Chaudhary Primary care physician: Uri Chaudhary Hospital Course: As mentioned in HPI Patient Condition at Discharge: Good Plan - Discharge Summary Discharge Rx Participant: Yes New Discharge Prescriptions: Continue Isosorbide Mononitrate [Imdur] 30 mg PO DAILY Carvedilol 25 mg PO BID Multivitamin/Iron/Folic Acid [Centrum Complete Multivit Tab] 1 tab PO DAILY Aspirin EC [Ecotrin Low Dose] 81 mg PO DAILY Simvastatin [Zocor] 20 mg PO HS cloNIDine HCL 0.3 mg PO BID LORazepam [Ativan] 1 mg PO BID PRN PRN Reason: Anxiety Ezetimibe [Zetia] 10 mg PO HS Mirabegron [Myrbetriq] 25 mg PO DAILY Nitroglycerin Sl Tabs [Nitrostat] 0.4 mg SUBLINGUAL Q5M PRN PRN Reason: Chest Pain Changed amLODIPine [Norvasc] 10 mg PO DAILY #0 Discharge Medication List Carvedilol 25 mg PO BID 12/18/13 [History] Isosorbide Mononitrate [Imdur] 30 mg PO DAILY 12/18/13 [History] Multivitamin/Iron/Folic Acid [Centrum Complete Multivit Tab] 1 tab PO DAILY 11/17/15 [History] Aspirin EC [Ecotrin Low Dose] 81 mg PO DAILY 09/16/18 [History] Ezetimibe [Zetia] 10 mg PO HS 12/26/18 [History] LORazepam [Ativan] 1 mg PO BID PRN 12/26/18 [History] Simvastatin [Zocor] 20 mg PO HS 12/26/18 [History] cloNIDine HCL 0.3 mg PO BID 12/26/18 [History] Mirabegron [Myrbetriq] 25 mg PO DAILY 12/24/19 [History] Nitroglycerin Sl Tabs [Nitrostat] 0.4 mg SUBLINGUAL Q5M PRN 12/24/19 [History] amLODIPine [Norvasc] 10 mg PO DAILY #0 01/03/20 [Rx] Follow up Appointment(s)/Referral(s): Uri Chaudhary MD [Primary Care Provider] - 3 Days (pt/daughter to call tomorrow and make follow up appointment) Patient Instructions/Handouts: Vertigo (DC), Vertigo (GEN) Discharge Disposition: HOME SELF-CARE
--- NOTE | 2020-01-03 12:47 | P.HPIM ---
History of Present Illness A 89-year-old feel presenting yesterday for chief complaint of possible dehydration. She states that she feels lightheaded when she stands up she states she had episode where she felt like she was almost going to pass out after she stood up however she did not loose consciousness. She states that they took her blood pressure is 90/40. They thought that this was too low and called EMS patient then presented to the ER EMS states upon arrival patient's blood pressure was normal. They state the patient has no other complaints denies a chest pain shortness of breath nausea vomiting jaw pain arm pain and back pain she denies any dysuria urgency frequency fevers or additional complaints upon arrival patient appears well nontoxic and is in good spirits. Patient was given IV fluids with improvement in serum creatinine patient creatinine was around 1.38 patient looks much better patient denied any dysuria suprapubic pain patient denied any fever chills patient denied any nausea vomiting. Patient's urine is abnormal and she received A dose of Rocephin but patient doesn't have any symptoms patient has asymptomatic bacteriuria will not require any antibiotics patient was hydrated with improvement in blood pressures actually her blood pressure is very high patient's amlodipine dose will be increased patient blood pressure usually is high at home as well, amlodipine dose will be increased because of that reason patient looks much better with improvement in creatinine to 0.86 will be discharged today with a follow-up with PCP in about 3-7 days Review of Systems REVIEW OF SYSTEMS: CONSTITUTIONAL: No fever, no malaise, no fatigue. HEENT: No recent visual problems or hearing problems. Denied any sore throat. CARDIOVASCULAR: No chest pain, orthopnea, PND, no palpitations, no syncope. PULMONARY: No shortness of breath, no cough, no hemoptysis. GASTROINTESTINAL: No diarrhea, no nausea, no vomiting, no abdominal pain. NEUROLOGICAL: No headaches, no weakness, no numbness. HEMATOLOGICAL: Denies any bleeding or petechiae. GENITOURINARY: Denies any burning micturition, frequency, or urgency. MUSCULOSKELETAL/RHEUMATOLOGICAL: Denies any joint pain, swelling, or any muscle pain. ENDOCRINE: Denies any polyuria or polydipsia. The rest of the 14-point review of systems is negative. Past Medical History Past Medical History: Chest Pain / Angina, CVA/TIA, GERD/Reflux, Hyperlipidemia, Hypertension, Myocardial Infarction ([place]), Pneumonia, Syncope Additional Past Medical History / Comment(s): Past syncopal episodes, TIAs, UTIs, DJD spin, chronic back pain, arthritis hands, diverticular disease.urinary incontinence- wears briefs Last Myocardial Infarction Date:: 11/16/2010 History of Any Multi-Drug Resistant Organisms: None Reported Past Surgical History: Adenoidectomy, Appendectomy, Back Surgery, Cholecystectomy, Heart Catheterization, Hysterectomy, Tonsillectomy Additional Past Surgical History / Comment(s): cardiac caths in 2010 and 2013, back fusion/discectomy, colonoscopy, bilateral cataract removal with lens implants, Past Anesthesia/Blood Transfusion Reactions: Postoperative Nausea & Vomiting (PONV) Past Psychological History: Anxiety Smoking Status: Former smoker Past Alcohol Use History: None Reported Past Drug Use History: None Reported - Past Family History Father Additional Family Medical History / Comment(s): Father at the age of 57yrs with "heart problems". Mother Additional Family Medical History / Comment(s): Mother had an enlarged heart. She at the age of 79yrs. Medications and Allergies Home Medications Medication Instructions Recorded Confirmed Type Carvedilol 25 mg PO BID 12/18/13 01/02/20 History Isosorbide Mononitrate [Imdur] 30 mg PO DAILY 12/18/13 01/02/20 History Multivitamin/Iron/Folic Acid 1 tab PO DAILY 11/17/15 01/02/20 History [Centrum Complete Multivit Tab] Aspirin EC [Ecotrin Low Dose] 81 mg PO DAILY 09/16/18 01/02/20 History Ezetimibe [Zetia] 10 mg PO HS 12/26/18 01/02/20 History LORazepam [Ativan] 1 mg PO BID PRN 12/26/18 01/02/20 History Simvastatin [Zocor] 20 mg PO HS 12/26/18 01/02/20 History cloNIDine HCL 0.3 mg PO BID 12/26/18 01/02/20 History Mirabegron [Myrbetriq] 25 mg PO DAILY 12/24/19 01/02/20 History Nitroglycerin Sl Tabs [Nitrostat] 0.4 mg SUBLINGUAL Q5M PRN 12/24/19 01/02/20 History amLODIPine [Norvasc] 10 mg PO DAILY #0 01/03/20 01/02/20 Rx Allergies Allergy/AdvReac Type Severity Reaction Status Date / Time oxycodone [From Percocet] Allergy Unknown Verified 01/02/20 16:26 codeine AdvReac Nausea & Verified 01/02/20 16:26 Vomiting meperidine HCl [From Demerol] AdvReac Nausea & Verified 01/02/20 16:26 Vomiting morphine AdvReac Nausea & Verified 01/02/20 16:26 Vomiting Physical Exam Vitals: Vital Signs Temp Pulse Pulse Pulse Pulse Resp BP 01/03/20 10:11 01/03/20 09:00 98.2 F 73 17 01/03/20 03:31 98.2 F 69 18 01/02/20 20:51 97.7 F 78 76 75 20 01/02/20 16:14 97.8 F 78 16 144/62 01/02/20 16:13 97.3 F L 73 18 01/02/20 14:42 81 51 L 75 01/02/20 14:04 97.5 F L 77 16 116/49 BP BP BP Pulse Ox 01/03/20 10:11 177/73 01/03/20 09:00 215/79 94 L 01/03/20 03:31 163/66 94 L 01/02/20 20:51 166/80 161/76 180/74 96 01/02/20 16:14 97 01/02/20 16:13 163/69 97 01/02/20 14:42 158/64 140/60 141/60 01/02/20 14:04 96 Intake and Output 01/02/20 01/03/20 01/03/20 22:59 06:59 14:59 Intake Total 650 Balance 650 Intake: Oral 650 Other: Voiding Method Toilet Toilet # Voids 1 3 2 Weight 49.895 kg PHYSICAL EXAMINATION: GENERAL: The patient is alert and oriented x3, not in any acute distress. Well developed, well nourished. Thin built HEENT: Pupils are round and equally reacting to light. EOMI. No scleral icterus. No conjunctival pallor. Normocephalic, atraumatic. No pharyngeal erythema. No thyromegaly. CARDIOVASCULAR: S1 and S2 present. No murmurs, rubs, or gallops. PULMONARY: Chest is clear to auscultation, no wheezing or crackles. ABDOMEN: Soft, nontender, nondistended, normoactive bowel sounds. No palpable organomegaly. MUSCULOSKELETAL: No joint swelling or deformity. EXTREMITIES: No cyanosis, clubbing, or pedal edema. NEUROLOGICAL: Gross neurological examination did not reveal any focal deficits. SKIN: No rashes. Results CBC & Chem 7: 01/02/20 14:14 01/03/20 07:22 Labs: Abnormal Lab Results - Last 24 Hours (Table) 01/02/20 01/02/20 01/02/20 Range/Units 14:14 14:14 15:28 WBC 11.8 H (3.8-10.6) k/uL RBC 3.27 L (3.80-5.40) m/uL Hgb 9.5 L (11.4-16.0) gm/dL Hct 30.4 L (34.0-46.0) % RDW 15.7 H (11.5-15.5) % Neutrophils # 9.4 H (1.3-7.7) k/uL Sodium 136 L (137-145) mmol/L Potassium 3.3 L (3.5-5.1) mmol/L Chloride (98-107) mmol/L BUN 21 H (7-17) mg/dL Creatinine 1.38 H (0.52-1.04) mg/dL Glucose 226 H (74-99) mg/dL Total Protein 5.5 L (6.3-8.2) g/dL Albumin 2.6 L (3.5-5.0) g/dL Urine Appearance Cloudy H (Clear) Urine Protein 3+ H (Negative) Urine Glucose (UA) Trace H (Negative) Urine Ketones Trace H (Negative) Urine Blood Trace H (Negative) Ur Leukocyte Esterase Large H (Negative) Urine RBC 8 H (0-5) /hpf Urine WBC 90 H (0-5) /hpf Amorphous Sediment Occasional H (None) /hpf Urine Bacteria Rare H (None) /hpf Hyaline Casts 168 H (0-2) /lpf Urine Mucus Rare H (None) /hpf 01/03/20 Range/Units 07:22 WBC (3.8-10.6) k/uL RBC (3.80-5.40) m/uL Hgb (11.4-16.0) gm/dL Hct (34.0-46.0) % RDW (11.5-15.5) % Neutrophils # (1.3-7.7) k/uL Sodium (137-145) mmol/L Potassium (3.5-5.1) mmol/L Chloride 108 H (98-107) mmol/L BUN (7-17) mg/dL Creatinine (0.52-1.04) mg/dL Glucose 102 H (74-99) mg/dL Total Protein (6.3-8.2) g/dL Albumin (3.5-5.0) g/dL Urine Appearance (Clear) Urine Protein (Negative) Urine Glucose (UA) (Negative) Urine Ketones (Negative) Urine Blood (Negative) Ur Leukocyte Esterase (Negative) Urine RBC (0-5) /hpf Urine WBC (0-5) /hpf Amorphous Sediment (None) /hpf Urine Bacteria (None) /hpf Hyaline Casts (0-2) /lpf Urine Mucus (None) /hpf Microbiology - Last 24 Hours (Table) 01/02/20 15:28 Urine Culture - Preliminary Urine,Voided Thrombosis Risk Factor Assmnt - Choose All That Apply Each Factor Represents 1 point: Acute [place] Each Risk Factor Represents 3 Points: Age 75 years or older Other congenital or acquired thrombophilia - If yes, enter type in comment: No Thrombosis Risk Factor Assessment Total Risk Factor Score: 4 Thrombosis Risk Factor Assessment Level: Moderate Risk Assessment and Plan Plan: -Dizziness: Secondary to dehydration intravascular depletion patient received IV fluids doing much better patient will be discharged today -Asymptomatic bacteriuria patient will not require any antibiotics for this -Proteinuria patient will need further workup as an outpatient -hypertension blood pressure is highly elevated will increase the dose of amlodipine patient will continue rest of her medications -CVA in the past -Coronary artery disease Patient will be discharged today
== END 2020-01-03 12:27 | disposition home or self-care (01) ==
LOC: EC 13:51 → 1SOBS 15:56
PROVIDERS: ADMIT Family Medicine; ATTEND Family Medicine
DX: E86.0 Dehydration (principal); R42 Dizziness and giddiness; E78.5 Hyperlipidemia, unspecified; F41.9 Anxiety disorder, unspecified; I10 Essential (primary) hypertension; I25.10 Atherosclerotic heart disease of native coronary artery without angina pectoris; I95.1 Orthostatic hypotension; I25.2 Old myocardial infarction; M19.041 Primary osteoarthritis, right hand; M19.042 Primary osteoarthritis, left hand; Z79.82 Long term (current) use of aspirin; Z79.899 Other long term (current) drug therapy; Z86.73 Personal history of transient ischemic attack (TIA), and cerebral infarction without residual deficits; Z87.891 Personal history of nicotine dependence; Z90.710 Acquired absence of both cervix and uterus; Z96.1 Presence of intraocular lens; Z98.1 Arthrodesis status; Z98.41 Cataract extraction status, right eye; Z98.42 Cataract extraction status, left eye
CPT/HCPCS: 96365; 96366; 96361; 99285; 36415; 93005; 80053; 80048; 84484; 85025; 81001; 87086; 87077; 87186; 71046; G0378 ×2; J0696

== ENCOUNTER 2020-01-09 20:13 | Emergency (ER) | payer MEDICARE, BC ==
[2020-01-09] MEDS ORDERED: LORazepam 2 MG/ML INJ IV STA (20:46)
[2020-01-09 21:02] LABS: Basophils # (A) 0.1 k/uL (0-0.2); Basophils % (A) 1 %; Eosinophils # (A) 0.5 k/uL (0-0.7); Eosinophils % (A) 5 %; HCT 31.6 % (34.0-46.0); HGB 10.2 gm/dL (11.4-16.0); Lymphocytes # (A) 1.3 k/uL (1.0-4.8); Lymphocytes % (A) 12 %; MCH 29.8 pg (25.0-35.0); MCHC 32.3 g/dL (31.0-37.0); MCV 92.3 fL (80.0-100.0); Mean Platelet Volume 7.3; Monocytes # (A) 0.6 k/uL (0-1.0); Monocytes % (A) 6 %; Neutrophils # (A) 7.7 k/uL (1.3-7.7); Neutrophils % (A) 76 %; Platelet Count 368 k/uL (150-450); RBC 3.43 m/uL (3.80-5.40); WBC 10.1 k/uL (3.8-10.6)
[2020-01-09 21:15] LABS: Albumin 3.2 g/dL (3.5-5.0); Calcium 9.4 mg/dL (8.4-10.2); Potassium 3.9 mmol/L (3.5-5.1); Total Bilirubin 0.3 mg/dL (0.2-1.3); Total Protein 6.5 g/dL (6.3-8.2)
--- NOTE | 2020-01-09 22:27 | XR ---
EXAMINATION TYPE: XR chest 2V DATE OF EXAM: 01/09/2020 COMPARISON: 01/02/2020 HISTORY: 2 views There is coarse interstitial density in the lungs. Heart size is normal. Thoracic aorta is atheromato us. There are chest leads. There is some osteopenia. I do not see evidence for heart failure. There i s no pleural effusion. IMPRESSION: Pulmonary interstitial fibrosis. No acute lung disease. No change.
[2020-01-09 22:58] VITALS: BP 144/62; PULSE 66; RESP 15; TEMP 98
--- NOTE | 2020-01-09 23:05 | ED ---
General Adult HPI - General Chief complaint: Shortness of Breath Stated complaint: SOB Time Seen by Provider: 01/09/20 20:29 Source: patient, EMS, RN notes reviewed, old records reviewed Mode of arrival: EMS Limitations: no limitations - History of Present Illness Initial comments: 89-year-old female patient presents to ED for evaluation of what she describes as anxiety. Patient was that she has been under tremendous stress recently as her and her [facility] assisted living facility. She states that she became anxious and had some shortness of breath. Denies any chest pain. Denies any other acute complaints. Time of evaluation patient is feeling significantly better. Systemic: Pt denies fatigue, fever/chills, rash. Pt denies weakness, night sweats, weight loss. Neuro: Pt denies headache, visual disturbances, syncope or pre-syncope. HEENT: Pt denies ocular discharge or irritation, otalgia, rhinorrhea, pharyngitis or notable lymphadenopathy. Cardiopulmonary: Pt denies chest pain, heart palpitations, dyspnea on exertion. Abdominal/GI: Pt denies abdominal pain, n/v/d. : Pt denies dysuria, burning w/ urination, frequency/urgency. Denies new onset urinary or bowel incontinence. MSK: Pt denies myalgia, loss of strength or function in extremities. Neuro: Pt denies new onset weakness, paresthesias. - Related Data Home Medications Medication Instructions Recorded Confirmed Carvedilol 25 mg PO BID 12/18/13 01/09/20 Isosorbide Mononitrate [Imdur] 30 mg PO DAILY 12/18/13 01/09/20 Multivitamin/Iron/Folic Acid 1 tab PO DAILY 11/17/15 01/09/20 [Centrum Complete Multivit Tab] Aspirin EC [Ecotrin Low Dose] 81 mg PO DAILY 09/16/18 01/09/20 Ezetimibe [Zetia] 10 mg PO HS 12/26/18 01/09/20 LORazepam [Ativan] 1 mg PO BID PRN 12/26/18 01/09/20 Simvastatin [Zocor] 20 mg PO HS 12/26/18 01/09/20 cloNIDine HCL 0.3 mg PO BID 12/26/18 01/09/20 Mirabegron [Myrbetriq] 25 mg PO DAILY 12/24/19 01/09/20 Nitroglycerin Sl Tabs [Nitrostat] 0.4 mg SUBLINGUAL Q5M PRN 12/24/19 01/09/20 Previous Rx's Medication Instructions Recorded amLODIPine [Norvasc] 10 mg PO DAILY #0 01/03/20 Allergies Allergy/AdvReac Type Severity Reaction Status Date / Time oxycodone [From Percocet] Allergy Unknown Verified 01/09/20 20:48 codeine AdvReac Nausea & Verified 01/09/20 20:48 Vomiting meperidine HCl [From Demerol] AdvReac Nausea & Verified 01/09/20 20:48 Vomiting morphine AdvReac Nausea & Verified 01/09/20 20:48 Vomiting Review of Systems ROS Statement: Those systems with pertinent positive or pertinent negative responses have been documented in the HPI. ROS Other: All systems not noted in ROS Statement are negative. Past Medical History Past Medical History: Chest Pain / Angina, CVA/TIA, GERD/Reflux, Hyperlipidemia, Hypertension, Myocardial Infarction ([place]), Pneumonia, Syncope Additional Past Medical History / Comment(s): Past syncopal episodes, TIAs, UTIs, DJD spin, chronic back pain, arthritis hands, diverticular disease.urinary incontinence- wears briefs Last Myocardial Infarction Date:: 11/16/2010 History of Any Multi-Drug Resistant Organisms: None Reported Past Surgical History: Adenoidectomy, Appendectomy, Back Surgery, Cholecystectomy, Heart Catheterization, Hysterectomy, Tonsillectomy Additional Past Surgical History / Comment(s): cardiac caths in 2010 and 2013, back fusion/discectomy, colonoscopy, bilateral cataract removal with lens implants, Past Anesthesia/Blood Transfusion Reactions: Postoperative Nausea & Vomiting (PONV) Past Psychological History: Anxiety Smoking Status: Former smoker Past Alcohol Use History: None Reported Past Drug Use History: None Reported - Past Family History Father Additional Family Medical History / Comment(s): Father at the age of 57yrs with "heart problems". Mother Additional Family Medical History / Comment(s): Mother had an enlarged heart. She at the age of 79yrs. General Exam - General Exam Comments Initial Comments: Constitutional: NAD, AOX3, Pt has pleasant affect. HEENT: NC/AT, trachea midline, neck supple, no lymphadenopathy. Posterior pharynx non erythematous, without exudates. External ears appear normal, without discharge. Mucous membranes moist. Eyes PERRLA, EOM intact. There is no scleral icterus. No pallor noted. Cardiopulmonary: RRR, no murmurs, rubs or gallops, no JVD noted. Lungs CTAB in anterior and posterior bang. No peripheral edema. Abdominal exam: Abdomen soft and non-distended. Abdomen non-tender to palpation in all 4 quadrants. Bowel sounds active in LLQ. No hepatosplenomegaly. No ecchymosis Neuro: CN II-XII grossly intact. No nuchal rigidity. No raccon eyes, no alonzo sign, no hemotympanum. No cervical spinal tenderness. MSK: No posterior calf tenderness bilaterally, homans sign negative bilaterally. Posterior tibialis and radial pulse +2 bilaterally. Sensation intact in upper and lower extremities. Full active ROM in upper and lower extremities, 5/5 stregnth. Limitations: no limitations Course Vital Signs 01/09/20 01/09/20 01/09/20 20:15 20:59 22:00 Temperature 97.8 F Pulse Rate 73 70 68 Respiratory 16 16 16 Rate Blood Pressure 177/89 156/70 134/65 O2 Sat by Pulse 98 98 Oximetry 01/09/20 22:56 Temperature 98 F Pulse Rate 66 Respiratory 15 Rate Blood Pressure 144/62 O2 Sat by Pulse 98 Oximetry Medical Decision Making - Medical Decision Making 89-year-old female patient presents to ED for evaluation of what she describes as anxiety and shortness of breath. Patient without signs are stable, afebrile. Physical exam did not display acute pathology. Laboratory investigations are unremarkable. Patient continues to be asymptomatic. Is requesting discharge. Patient wasn't offered admission and she is declining. Will be discharged with outpatient follow-up and return precautions. Case discussed with Dr. Kilpatrick. - Lab Data Result diagrams: 01/09/20 20:53 01/09/20 20:53 Lab Results 01/09/20 01/09/20 01/09/20 Range/Units 20:53 20:53 20:53 WBC 10.1 (3.8-10.6) k/uL RBC 3.43 L (3.80-5.40) m/uL Hgb 10.2 L (11.4-16.0) gm/dL Hct 31.6 L (34.0-46.0) % MCV 92.3 (80.0-100.0) fL MCH 29.8 (25.0-35.0) pg MCHC 32.3 (31.0-37.0) g/dL RDW 15.0 (11.5-15.5) % Plt Count 368 (150-450) k/uL Neutrophils % 76 % Lymphocytes % 12 % Monocytes % 6 % Eosinophils % 5 % Basophils % 1 % Neutrophils # 7.7 (1.3-7.7) k/uL Lymphocytes # 1.3 (1.0-4.8) k/uL Monocytes # 0.6 (0-1.0) k/uL Eosinophils # 0.5 (0-0.7) k/uL Basophils # 0.1 (0-0.2) k/uL Sodium 133 L (137-145) mmol/L Potassium 3.9 (3.5-5.1) mmol/L Chloride 99 (98-107) mmol/L Carbon Dioxide 29 (22-30) mmol/L Anion Gap 5 mmol/L BUN 17 (7-17) mg/dL Creatinine 1.10 H (0.52-1.04) mg/dL Est GFR (CKD-EPI)AfAm 52 (>60 ml/min/1.73 sqM) Est GFR (CKD-EPI)NonAf 45 (>60 ml/min/1.73 sqM) Glucose 112 H (74-99) mg/dL Calcium 9.4 (8.4-10.2) mg/dL Total Bilirubin 0.3 (0.2-1.3) mg/dL AST 25 (14-36) U/L ALT 16 (4-34) U/L Alkaline Phosphatase 93 (38-126) U/L Troponin I <0.012 (0.000-0.034) ng/mL Total Protein 6.5 (6.3-8.2) g/dL Albumin 3.2 L (3.5-5.0) g/dL Disposition Clinical Impression: Anxiety Disposition: HOME SELF-CARE Condition: Stable Instructions (If sedation given, give patient instructions): Anxiety (ED) Additional Instructions: follow-up with primary care provider tomorrow. Return to ER if any worsening symptoms. Is patient prescribed a controlled substance at d/c from ED?: No Referrals: Uri Chaudhary MD [Primary Care Provider] - 1-2 days
== END 2020-01-09 23:17 | disposition home or self-care (01) ==
LOC: EC 20:13
DX: F41.9 Anxiety disorder, unspecified (principal); R06.02 Shortness of breath; I10 Essential (primary) hypertension; I20.9 Angina pectoris, unspecified; G89.29 Other chronic pain; M54.9 Dorsalgia, unspecified; M19.042 Primary osteoarthritis, left hand; M19.041 Primary osteoarthritis, right hand; E78.5 Hyperlipidemia, unspecified; I25.2 Old myocardial infarction; Z79.899 Other long term (current) drug therapy; Z79.82 Long term (current) use of aspirin; Z88.5 Allergy status to narcotic agent; Z86.73 Personal history of transient ischemic attack (TIA), and cerebral infarction without residual deficits; Z87.891 Personal history of nicotine dependence
CPT/HCPCS: 36415; 93005; 80053; 84484; 85025; 71046; 99285; 96374; J2060

== ENCOUNTER 2020-03-23 13:18 | Emergency (ER) | payer MEDICARE, BC ==
[2020-03-23] MEDS ORDERED: SODIUM CHLORIDE 0.9% 500 ML 500 ML IV STA (14:01)
--- NOTE | 2020-03-23 14:04 | ED ---
General Adult HPI - General Chief complaint: Dizziness Stated complaint: Dizzy/Dehydrated/Poss UTI Time Seen by Provider: 03/23/20 13:44 Source: patient, RN notes reviewed, old records reviewed Mode of arrival: ambulatory Limitations: no limitations - History of Present Illness Initial comments: 89-year-old female presenting with generalized weakness, dehydration, lightheadedness. Patient had been checked by home care and noted to be hypotensive with a systolic blood pressure of 90. She admits she has not been eating or drinking well specifically not drinking much fluid. No vomiting or diarrhea. No fever. She was recently treated for urinary tract infection and has completed a round of antibiotics. She denies chest pain. Denies focal numb ness or weakness. Denies headache. No pain complaints. - Related Data Home Medications Medication Instructions Recorded Confirmed Carvedilol 25 mg PO BID 12/18/13 01/09/20 Isosorbide Mononitrate [Imdur] 30 mg PO DAILY 12/18/13 01/09/20 Multivitamin/Iron/Folic Acid 1 tab PO DAILY 11/17/15 01/09/20 [Centrum Complete Multivit Tab] Aspirin EC [Ecotrin Low Dose] 81 mg PO DAILY 09/16/18 01/09/20 Ezetimibe [Zetia] 10 mg PO HS 12/26/18 01/09/20 LORazepam [Ativan] 1 mg PO BID PRN 12/26/18 01/09/20 Simvastatin [Zocor] 20 mg PO HS 12/26/18 01/09/20 cloNIDine HCL 0.3 mg PO BID 12/26/18 01/09/20 Mirabegron [Myrbetriq] 25 mg PO DAILY 12/24/19 01/09/20 Nitroglycerin Sl Tabs [Nitrostat] 0.4 mg SUBLINGUAL Q5M PRN 12/24/19 01/09/20 Celecoxib [CeleBREX] 100 mg PO DAILY 03/23/20 03/23/20 Megestrol [Megace] 400 mg PO DAILY 03/23/20 03/23/20 Previous Rx's Medication Instructions Recorded amLODIPine [Norvasc] 10 mg PO DAILY #0 01/03/20 Azithromycin [Zithromax Z-pack] 0 mg PO DIRECTED #6 tab 03/23/20 Cephalexin [Keflex] 500 mg PO Q12HR #20 cap 03/23/20 Allergies Allergy/AdvReac Type Severity Reaction Status Date / Time oxycodone [From Percocet] Allergy Unknown Verified 03/23/20 16:09 codeine AdvReac Nausea & Verified 03/23/20 16:09 Vomiting meperidine HCl [From Demerol] AdvReac Nausea & Verified 03/23/20 16:09 Vomiting morphine AdvReac Nausea & Verified 03/23/20 16:09 Vomiting Review of Systems ROS Statement: Those systems with pertinent positive or pertinent negative responses have been documented in the HPI. ROS Other: All systems not noted in ROS Statement are negative. Past Medical History Past Medical History: Chest Pain / Angina, CVA/TIA, GERD/Reflux, Hyperlipidemia, Hypertension, Myocardial Infarction ([place]), Pneumonia, Syncope Additional Past Medical History / Comment(s): Past syncopal episodes, TIAs, UTIs, DJD spin, chronic back pain, arthritis hands, diverticular disease.urinary incontinence- wears briefs Last Myocardial Infarction Date:: 11/16/2010 History of Any Multi-Drug Resistant Organisms: None Reported Past Surgical History: Adenoidectomy, Appendectomy, Back Surgery, Cholecystectomy, Heart Catheterization, Hysterectomy, Tonsillectomy Additional Past Surgical History / Comment(s): cardiac caths in 2010 and 2013, back fusion/discectomy, colonoscopy, bilateral cataract removal with lens implants, Past Anesthesia/Blood Transfusion Reactions: Postoperative Nausea & Vomiting (PONV) Past Psychological History: Anxiety Smoking Status: Former smoker Past Alcohol Use History: None Reported Past Drug Use History: None Reported - Past Family History Father Additional Family Medical History / Comment(s): Father at the age of 57yrs with "heart problems". Mother Additional Family Medical History / Comment(s): Mother had an enlarged heart. She at the age of 79yrs. General Exam Limitations: no limitations General appearance: alert, in no apparent distress Head exam: Present: atraumatic, normocephalic ENT exam: Present: mucous membranes dry Neck exam: Present: normal inspection. Absent: tenderness, meningismus Respiratory exam: Present: normal lung sounds bilaterally. Absent: respiratory distress, wheezes Cardiovascular Exam: Present: regular rate, normal rhythm GI/Abdominal exam: Present: soft. Absent: distended, tenderness, guarding, rebound Extremities exam: Present: normal inspection, normal capillary refill. Absent: pedal edema, calf tenderness Neurological exam: Present: alert, oriented X3, CN II-XII intact. Absent: motor sensory deficit Psychiatric exam: Present: normal affect, normal mood Skin exam: Present: warm, dry, intact. Absent: cyanosis, diaphoretic Course Vital Signs 03/23/20 03/23/20 03/23/20 13:26 14:28 15:32 Temperature 98.0 F 97.6 F Pulse Rate 66 60 62 Respiratory 20 18 Rate Blood Pressure 128/74 147/58 149/55 O2 Sat by Pulse 98 99 97 Oximetry EKG Findings - EKG Comments: EKG Findings:: EKG: Normal sinus rhythm, LVH, rate of 64, OK interval 182, QRS duration 96, QTC 387, there is question of diffuse ST segment elevation, there is no reciprocal ST segment depression. Medical Decision Making - Medical Decision Making 89-year-old female presenting for evaluation of weakness, lightheadedness and recent UTI. Workup reveals normal white blood cell count, stable anemia, elevated serum creatinine 1.6 suggestive of dehydration. She does have a current UTI with greater than 182 white blood cells. She states she's had a chronic cough which is unchanged from baseline, chest x-ray concerning for an atypical pneumonia, I did obtain a coronavirus test which was negative. The patient is eager for discharge and does not want to be admitted to the hospital. She is encouraged to maintain oral hydration. She will be prescribed antibiotics for UTI. Daughter is in the room and is agreeable with this plan. - Lab Data Result diagrams: 03/23/20 14:20 03/23/20 14:20 Lab Results 03/23/20 03/23/20 03/23/20 Range/Units 14:20 14:20 14:20 WBC 8.5 (3.8-10.6) k/uL RBC 3.37 L (3.80-5.40) m/uL Hgb 9.8 L (11.4-16.0) gm/dL Hct 30.6 L (34.0-46.0) % MCV 90.7 (80.0-100.0) fL MCH 29.2 (25.0-35.0) pg MCHC 32.2 (31.0-37.0) g/dL RDW 15.6 H (11.5-15.5) % Plt Count 331 (150-450) k/uL MPV 7.1 Neutrophils % 71 % Lymphocytes % 16 % Monocytes % 8 % Eosinophils % 4 % Basophils % 1 % Neutrophils # 6.0 (1.3-7.7) k/uL Lymphocytes # 1.4 (1.0-4.8) k/uL Monocytes # 0.7 (0-1.0) k/uL Eosinophils # 0.3 (0-0.7) k/uL Basophils # 0.1 (0-0.2) k/uL PT 10.4 (9.0-12.0) sec INR 1.0 (<1.2) APTT 21.1 L (22.0-30.0) sec Sodium (137-145) mmol/L Potassium (3.5-5.1) mmol/L Chloride (98-107) mmol/L Carbon Dioxide (22-30) mmol/L Anion Gap mmol/L BUN (7-17) mg/dL Creatinine (0.52-1.04) mg/dL Est GFR (CKD-EPI)AfAm (>60 ml/min/1.73 sqM) Est GFR (CKD-EPI)NonAf (>60 ml/min/1.73 sqM) Glucose (74-99) mg/dL Plasma Lactic Acid Romeo (0.7-2.0) mmol/L Calcium (8.4-10.2) mg/dL Magnesium (1.6-2.3) mg/dL Total Bilirubin (0.2-1.3) mg/dL AST (14-36) U/L ALT (4-34) U/L Alkaline Phosphatase (38-126) U/L Troponin I (0.000-0.034) ng/mL Total Protein (6.3-8.2) g/dL Albumin (3.5-5.0) g/dL Urine Color Yellow Urine Appearance Turbid H (Clear) Urine pH 6.0 (5.0-8.0) Ur Specific [place] 1.017 (1.001-1.035) Urine Protein 2+ H (Negative) Urine Glucose (UA) Negative (Negative) Urine Ketones Negative (Negative) Urine Blood Small H (Negative) Urine Nitrite Negative (Negative) Urine Bilirubin Negative (Negative) Urine Urobilinogen <2.0 (<2.0) mg/dL Ur Leukocyte Esterase Large H (Negative) Urine RBC 4 (0-5) /hpf Urine WBC >182 H (0-5) /hpf Urine WBC Clumps Few H (None) /hpf Ur Squamous Epith Cells 2 (0-4) /hpf Urine Bacteria Moderate H (None) /hpf Hyaline Casts 5 H (0-2) /lpf Urine Mucus Rare H (None) /hpf Coronavirus (PCR) (Not Detectd) 03/23/20 03/23/20 03/23/20 Range/Units 14:20 14:20 14:20 WBC (3.8-10.6) k/uL RBC (3.80-5.40) m/uL Hgb (11.4-16.0) gm/dL Hct (34.0-46.0) % MCV (80.0-100.0) fL MCH (25.0-35.0) pg MCHC (31.0-37.0) g/dL RDW (11.5-15.5) % Plt Count (150-450) k/uL MPV Neutrophils % % Lymphocytes % % Monocytes % % Eosinophils % % Basophils % % Neutrophils # (1.3-7.7) k/uL Lymphocytes # (1.0-4.8) k/uL Monocytes # (0-1.0) k/uL Eosinophils # (0-0.7) k/uL Basophils # (0-0.2) k/uL PT (9.0-12.0) sec INR (<1.2) APTT (22.0-30.0) sec Sodium 134 L (137-145) mmol/L Potassium 4.0 (3.5-5.1) mmol/L Chloride 101 (98-107) mmol/L Carbon Dioxide 27 (22-30) mmol/L Anion Gap 6 mmol/L BUN 22 H (7-17) mg/dL Creatinine 1.59 H (0.52-1.04) mg/dL Est GFR (CKD-EPI)AfAm 33 (>60 ml/min/1.73 sqM) Est GFR (CKD-EPI)NonAf 29 (>60 ml/min/1.73 sqM) Glucose 94 (74-99) mg/dL Plasma Lactic Acid Romeo 1.1 (0.7-2.0) mmol/L Calcium 9.6 (8.4-10.2) mg/dL Magnesium 1.8 (1.6-2.3) mg/dL Total Bilirubin 0.3 (0.2-1.3) mg/dL AST 23 (14-36) U/L ALT 17 (4-34) U/L Alkaline Phosphatase 94 (38-126) U/L Troponin I <0.012 (0.000-0.034) ng/mL Total Protein 6.5 (6.3-8.2) g/dL Albumin 3.2 L (3.5-5.0) g/dL Urine Color Urine Appearance (Clear) Urine pH (5.0-8.0) Ur Specific [place] (1.001-1.035) Urine Protein (Negative) Urine Glucose (UA) (Negative) Urine Ketones (Negative) Urine Blood (Negative) Urine Nitrite (Negative) Urine Bilirubin (Negative) Urine Urobilinogen (<2.0) mg/dL Ur Leukocyte Esterase (Negative) Urine RBC (0-5) /hpf Urine WBC (0-5) /hpf Urine WBC Clumps (None) /hpf Ur Squamous Epith Cells (0-4) /hpf Urine Bacteria (None) /hpf Hyaline Casts (0-2) /lpf Urine Mucus (None) /hpf Coronavirus (PCR) (Not Detectd) 03/23/20 Range/Units 15:41 WBC (3.8-10.6) k/uL RBC (3.80-5.40) m/uL Hgb (11.4-16.0) gm/dL Hct (34.0-46.0) % MCV (80.0-100.0) fL MCH (25.0-35.0) pg MCHC (31.0-37.0) g/dL RDW (11.5-15.5) % Plt Count (150-450) k/uL MPV Neutrophils % % Lymphocytes % % Monocytes % % Eosinophils % % Basophils % % Neutrophils # (1.3-7.7) k/uL Lymphocytes # (1.0-4.8) k/uL Monocytes # (0-1.0) k/uL Eosinophils # (0-0.7) k/uL Basophils # (0-0.2) k/uL PT (9.0-12.0) sec INR (<1.2) APTT (22.0-30.0) sec Sodium (137-145) mmol/L Potassium (3.5-5.1) mmol/L Chloride (98-107) mmol/L Carbon Dioxide (22-30) mmol/L Anion Gap mmol/L BUN (7-17) mg/dL Creatinine (0.52-1.04) mg/dL Est GFR (CKD-EPI)AfAm (>60 ml/min/1.73 sqM) Est GFR (CKD-EPI)NonAf (>60 ml/min/1.73 sqM) Glucose (74-99) mg/dL Plasma Lactic Acid Romeo (0.7-2.0) mmol/L Calcium (8.4-10.2) mg/dL Magnesium (1.6-2.3) mg/dL Total Bilirubin (0.2-1.3) mg/dL AST (14-36) U/L ALT (4-34) U/L Alkaline Phosphatase (38-126) U/L Troponin I (0.000-0.034) ng/mL Total Protein (6.3-8.2) g/dL Albumin (3.5-5.0) g/dL Urine Color Urine Appearance (Clear) Urine pH (5.0-8.0) Ur Specific [place] (1.001-1.035) Urine Protein (Negative) Urine Glucose (UA) (Negative) Urine Ketones (Negative) Urine Blood (Negative) Urine Nitrite (Negative) Urine Bilirubin (Negative) Urine Urobilinogen (<2.0) mg/dL Ur Leukocyte Esterase (Negative) Urine RBC (0-5) /hpf Urine WBC (0-5) /hpf Urine WBC Clumps (None) /hpf Ur Squamous Epith Cells (0-4) /hpf Urine Bacteria (None) /hpf Hyaline Casts (0-2) /lpf Urine Mucus (None) /hpf Coronavirus (PCR) Not Detected (Not Detectd) Disposition Clinical Impression: Urinary tract infection, Dehydration, Pneumonia Disposition: HOME SELF-CARE Condition: Fair Instructions (If sedation given, give patient instructions): Dehydration (ED), Urinary Tract Infection in Women (ED) Prescriptions: Cephalexin [Keflex] 500 mg PO Q12HR #20 cap Azithromycin [Zithromax Z-pack] 0 mg PO DIRECTED #6 tab Is patient prescribed a controlled substance at d/c from ED?: No Referrals: Uri Chaudhary MD [Primary Care Provider] - 1-2 days
[2020-03-23 14:39] LABS: Basophils # (A) 0.1 k/uL (0-0.2); Basophils % (A) 1 %; Eosinophils # (A) 0.3 k/uL (0-0.7); Eosinophils % (A) 4 %; HCT 30.6 % (34.0-46.0); HGB 9.8 gm/dL (11.4-16.0); Lymphocytes # (A) 1.4 k/uL (1.0-4.8); Lymphocytes % (A) 16 %; MCH 29.2 pg (25.0-35.0); MCHC 32.2 g/dL (31.0-37.0); MCV 90.7 fL (80.0-100.0); Mean Platelet Volume 7.1; Monocytes # (A) 0.7 k/uL (0-1.0); Monocytes % (A) 8 %; Neutrophils % (A) 71 %; Platelet Count 331 k/uL (150-450); RBC 3.37 m/uL (3.80-5.40); RDW 15.6 % (11.5-15.5); WBC 8.5 k/uL (3.8-10.6)
[2020-03-23 14:40] LABS: Albumin 3.2 g/dL (3.5-5.0); Calcium 9.6 mg/dL (8.4-10.2); Magnesium 1.8 mg/dL (1.6-2.3); Total Bilirubin 0.3 mg/dL (0.2-1.3); Total Protein 6.5 g/dL (6.3-8.2)
[2020-03-23 14:41] LABS: Appearance,Urine Turbid (Clear); Bacteria,Urine Moderate /hpf; Bilirubin,Urine Negative (Negative); Blood,Urine Small (Negative); Color,Urine Yellow; Glucose,Urine (UA) Negative (Negative); Hyaline Casts,Urine 5 /lpf (0-2); Ketones,Urine Negative (Negative); Leukocyte Esterase,Urine Large (Negative); Mucus,Urine Rare /hpf; Nitrite,Urine Negative (Negative); Protein,Urine 2+ (Negative); RBC,Urine 4 /hpf (0-5); Specific Gravity,Urine 1.017 (1.001-1.035); Squamous Epithelial Cell,Urine 2 /hpf (0-4); Urobilinogen,Urine <2.0 mg/dL (<2.0); WBC,Urine >182 /hpf (0-5)
[2020-03-23 14:46] LABS: Prothrombin Time 10.4 sec (9.0-12.0)
[2020-03-23 14:48] LABS: Partial Thromboplastin Time 21.1 sec (22.0-30.0)
--- NOTE | 2020-03-23 14:51 | XR ---
EXAMINATION TYPE: XR chest 2V DATE OF EXAM: 03/23/2020 COMPARISON: 01/09/2020 INDICATION: Cough TECHNIQUE: Frontal and lateral views of the chest are obtained. FINDINGS: The heart size is normal. The pulmonary vasculature is prominent. Patchy nonspecific infiltrates are present diffusely through the bilateral lung bang. Findings are similar to December 2017. Pulmonary edema and atypical pneumonia should be considered. IMPRESSION: 1. Scattered increased lung markings bilaterally. Consider atypical pneumonia and noncardiogenic pulm onary edema.
[2020-03-23 15:34] VITALS: BP 149/55; PULSE 62; RESP 18; TEMP 97.6
== END 2020-03-23 16:50 | disposition home or self-care (01) ==
LOC: EC 13:18
DX: N39.0 Urinary tract infection, site not specified (principal); E86.0 Dehydration; J18.9 Pneumonia, unspecified organism; D64.9 Anemia, unspecified; R79.89 Other specified abnormal findings of blood chemistry; I10 Essential (primary) hypertension; G89.29 Other chronic pain; M54.9 Dorsalgia, unspecified; I20.9 Angina pectoris, unspecified; M19.042 Primary osteoarthritis, left hand; M19.041 Primary osteoarthritis, right hand; E78.5 Hyperlipidemia, unspecified; F41.9 Anxiety disorder, unspecified; I25.2 Old myocardial infarction; Z20.828 Contact with and (suspected) exposure to other viral communicable diseases; Z79.1 Long term (current) use of non-steroidal anti-inflammatories (NSAID); Z79.82 Long term (current) use of aspirin; Z79.899 Other long term (current) drug therapy; Z79.890 Hormone replacement therapy; Z88.5 Allergy status to narcotic agent; Z86.73 Personal history of transient ischemic attack (TIA), and cerebral infarction without residual deficits; Z87.891 Personal history of nicotine dependence; Z87.440 Personal history of urinary (tract) infections
CPT/HCPCS: 36415; 93005; 80053; 83605; 83735; 84484; 85025; 85610; 85730; 81001; 87086; 87635; 71046; 99284; 96365; 96361; J0696

== ENCOUNTER → 2020-07-12 | Outpatient (CLI) | payer MEDICARE, BC ==
--- NOTE | 2020-07-12 08:14 | US ---
EXAMINATION TYPE: US venous doppler duplex LE BI DATE OF EXAM: 07/12/2020 7:47 AM COMPARISON: NONE CLINICAL HISTORY: R22.42, R22.41 SREE LE SWELLING. Swelling SIDE PERFORMED: Bilateral TECHNIQUE: The lower extremity deep venous system is examined utilizing real time linear array sonog malik with graded compression, doppler sonography and color-flow sonography. VESSELS IMAGED: Common Femoral Vein Deep Femoral Vein Greater Saphenous Vein * Femoral Vein Popliteal Vein Small Saphenous Vein * Proximal Calf Veins (* superficial vessels) Right Leg: Negative for DVT Left Leg: Negative for DVT IMPRESSION: No evidence for DVT at this time.
== END | disposition home or self-care (01) ==
LOC: RADUSWWP 07:01
PROVIDERS: ATTEND Family Medicine
DX: R22.43 Localized swelling, mass and lump, lower limb, bilateral (principal)
CPT/HCPCS: 93970

== ENCOUNTER 2020-08-07 10:58 | Emergency (ER) | payer MEDICARE, BC ==
[2020-08-07] MEDS ORDERED: MECLIZINE 25 MG TAB PO STA (11:05)
[2020-08-07 11:06] VITALS: TEMP 97.4
--- NOTE | 2020-08-07 11:08 | ED ---
General Adult HPI - General Chief complaint: Dizziness Stated complaint: dizziness Time Seen by Provider: 08/07/20 10:58 Source: EMS, RN notes reviewed, old records reviewed Mode of arrival: EMS Limitations: no limitations - History of Present Illness Initial comments: This is an 89-year-old female who states while she was at home she had a sudden onset of dizziness. EMS reported as a sudden onset of headache patient denies that to me she also denies neck pain. Patient states it feels like everything is swimming in her head things are spinning around. Patient states movement definitely makes it worse per patient denies any nausea vomiting. Patient states her symptoms are improved. Patient denies any loss of consciousness or any near syncopal episode. Patient denies any chest pain difficult breathing shortness of breath. Patient denies any palpitations. Patient denies abdominal pain patient denies nausea vomiting diarrhea. - Related Data Home Medications Medication Instructions Recorded Confirmed Carvedilol 25 mg PO BID 12/18/13 03/23/20 Isosorbide Mononitrate [Imdur] 30 mg PO DAILY 12/18/13 03/23/20 Multivitamin/Iron/Folic Acid 1 tab PO DAILY 11/17/15 03/23/20 [Centrum Complete Multivit Tab] Aspirin EC [Ecotrin Low Dose] 81 mg PO DAILY 09/16/18 03/23/20 Ezetimibe [Zetia] 10 mg PO HS 12/26/18 03/23/20 LORazepam [Ativan] 1 mg PO BID PRN 12/26/18 03/23/20 Simvastatin [Zocor] 20 mg PO HS 12/26/18 03/23/20 cloNIDine HCL [Catapres] 0.3 mg PO BID 12/26/18 03/23/20 Mirabegron [Myrbetriq] 25 mg PO DAILY 12/24/19 03/23/20 Nitroglycerin Sl Tabs [Nitrostat] 0.4 mg SL Q5M PRN 12/24/19 03/23/20 Celecoxib [CeleBREX] 100 mg PO DAILY 03/23/20 03/23/20 Megestrol [Megace] 400 mg PO DAILY 03/23/20 03/23/20 Previous Rx's Medication Instructions Recorded amLODIPine [Norvasc] 10 mg PO DAILY #0 01/03/20 Azithromycin [Zithromax Z-pack] 0 mg PO DIRECTED #6 tab 03/23/20 Cephalexin [Keflex] 500 mg PO Q12HR #20 cap 03/23/20 Meclizine [Antivert] 25 mg PO TID #20 tab 08/07/20 Allergies Allergy/AdvReac Type Severity Reaction Status Date / Time oxycodone [From Percocet] Allergy Unknown Verified 08/07/20 11:06 codeine AdvReac Nausea & Verified 08/07/20 11:06 Vomiting meperidine HCl [From Demerol] AdvReac Nausea & Verified 08/07/20 11:06 Vomiting morphine AdvReac Nausea & Verified 08/07/20 11:06 Vomiting Review of Systems ROS Statement: Those systems with pertinent positive or pertinent negative responses have been documented in the HPI. ROS Other: All systems not noted in ROS Statement are negative. Past Medical History Past Medical History: Chest Pain / Angina, CVA/TIA, GERD/Reflux, Hyperlipidemia, Hypertension, Myocardial Infarction ([place]), Pneumonia, Syncope Additional Past Medical History / Comment(s): Past syncopal episodes, TIAs, UTIs, DJD spin, chronic back pain, arthritis hands, diverticular disease.urinary incontinence- wears briefs Last Myocardial Infarction Date:: 11/16/2010 History of Any Multi-Drug Resistant Organisms: None Reported Past Surgical History: Adenoidectomy, Appendectomy, Back Surgery, Cholecystectomy, Heart Catheterization, Hysterectomy, Tonsillectomy Additional Past Surgical History / Comment(s): cardiac caths in 2010 and 2013, back fusion/discectomy, colonoscopy, bilateral cataract removal with lens implants, Past Anesthesia/Blood Transfusion Reactions: Postoperative Nausea & Vomiting (PONV) Past Psychological History: Anxiety Smoking Status: Former smoker Past Alcohol Use History: None Reported Past Drug Use History: None Reported - Past Family History Father Additional Family Medical History / Comment(s): Father at the age of 57yrs with "heart problems". Mother Additional Family Medical History / Comment(s): Mother had an enlarged heart. She at the age of 79yrs. General Exam - General Exam Comments Initial Comments: GENERAL: Patient is well-developed and well-nourished. Patient is nontoxic and well- hydrated and is in mild distress. ENT: Neck is soft and supple. No significant lymphadenopathy is noted. Oropharynx is clear. Moist mucous membranes. Neck has full range of motion without eliciting any pain. EYES: The sclera were anicteric and conjunctiva were pink and moist. Extraocular movements were intact and pupils were equal round and reactive to light. Eyelids were unremarkable. PULMONARY: Unlabored respirations. Good breath sounds bilaterally. No audible rales rh onchi or wheezing was noted. CARDIOVASCULAR: There is a regular rate and rhythm without any murmurs gallops or rubs. ABDOMEN: Soft and nontender with normal bowel sounds. No palpable organomegaly was noted. There is no palpable pulsatile mass. SKIN: Skin is clear with no lesions or rashes and otherwise unremarkable. NEUROLOGIC: Patient is alert and oriented x3. Cranial nerves II through XII are grossly intact. Motor and sensory are also intact. Normal speech, volume and content. Symmetrical smile. Finger to nose testing is normal bilaterally MUSCULOSKELETAL: Normal extremities with adequate strength and full range of motion. No lower extremity swelling or edema. No calf tenderness. LYMPHATICS: No significant lymphadenopathy is noted PSYCHIATRIC: Normal psychiatric evaluation. Limitations: no limitations Course Vital Signs 08/07/20 08/07/20 10:59 12:23 Temperature 97.4 F L Pulse Rate 64 59 L Respiratory 18 16 Rate Blood Pressure 143/56 129/60 O2 Sat by Pulse 97 96 Oximetry Medical Decision Making - Medical Decision Making EKG shows normal sinus rhythm at 63 bpm OK interval 292 QRS is 94 QT interval 432 QTC is 442. Patient's EKG shows no ST segment elevation or depression. CT of the brain shows no acute abnormality. Chest x-ray shows no acute abnormality. Patient did receive Antivert and emergency department. After all labs and radiological studies were done I had the patient ambulate patient ambulated without problem. Patient was feeling considerably better. - Lab Data Result diagrams: 08/07/20 11:07 08/07/20 11:07 Lab Results 08/07/20 08/07/20 08/07/20 Range/Units 11:07 11:07 11:07 WBC 8.4 (3.8-10.6) k/uL RBC 3.18 L (3.80-5.40) m/uL Hgb 9.5 L (11.4-16.0) gm/dL Hct 28.9 L (34.0-46.0) % MCV 90.7 (80.0-100.0) fL MCH 29.8 (25.0-35.0) pg MCHC 32.8 (31.0-37.0) g/dL RDW 14.2 (11.5-15.5) % Plt Count 309 (150-450) k/uL MPV 7.9 Neutrophils % 72 % Lymphocytes % 16 % Monocytes % 7 % Eosinophils % 4 % Basophils % 1 % Neutrophils # 6.0 (1.3-7.7) k/uL Lymphocytes # 1.3 (1.0-4.8) k/uL Monocytes # 0.6 (0-1.0) k/uL Eosinophils # 0.3 (0-0.7) k/uL Basophils # 0.1 (0-0.2) k/uL PT 10.8 (9.0-12.0) sec INR 1.0 (<1.2) APTT 21.2 L (22.0-30.0) sec Sodium 137 (137-145) mmol/L Potassium 3.3 L (3.5-5.1) mmol/L Chloride 103 (98-107) mmol/L Carbon Dioxide 29 (22-30) mmol/L Anion Gap 5 mmol/L BUN 15 (7-17) mg/dL Creatinine 1.16 H (0.52-1.04) mg/dL Est GFR (CKD-EPI)AfAm 49 (>60 ml/min/1.73 sqM) Est GFR (CKD-EPI)NonAf 43 (>60 ml/min/1.73 sqM) Glucose 208 H (74-99) mg/dL Calcium 9.0 (8.4-10.2) mg/dL Magnesium 1.6 (1.6-2.3) mg/dL Total Bilirubin 0.3 (0.2-1.3) mg/dL AST 25 (14-36) U/L ALT 11 (4-34) U/L Alkaline Phosphatase 91 (38-126) U/L Troponin I (0.000-0.034) ng/mL Total Protein 5.9 L (6.3-8.2) g/dL Albumin 2.9 L (3.5-5.0) g/dL 08/07/20 Range/Units 11:07 WBC (3.8-10.6) k/uL RBC (3.80-5.40) m/uL Hgb (11.4-16.0) gm/dL Hct (34.0-46.0) % MCV (80.0-100.0) fL MCH (25.0-35.0) pg MCHC (31.0-37.0) g/dL RDW (11.5-15.5) % Plt Count (150-450) k/uL MPV Neutrophils % % Lymphocytes % % Monocytes % % Eosinophils % % Basophils % % Neutrophils # (1.3-7.7) k/uL Lymphocytes # (1.0-4.8) k/uL Monocytes # (0-1.0) k/uL Eosinophils # (0-0.7) k/uL Basophils # (0-0.2) k/uL PT (9.0-12.0) sec INR (<1.2) APTT (22.0-30.0) sec Sodium (137-145) mmol/L Potassium (3.5-5.1) mmol/L Chloride (98-107) mmol/L Carbon Dioxide (22-30) mmol/L Anion Gap mmol/L BUN (7-17) mg/dL Creatinine (0.52-1.04) mg/dL Est GFR (CKD-EPI)AfAm (>60 ml/min/1.73 sqM) Est GFR (CKD-EPI)NonAf (>60 ml/min/1.73 sqM) Glucose (74-99) mg/dL Calcium (8.4-10.2) mg/dL Magnesium (1.6-2.3) mg/dL Total Bilirubin (0.2-1.3) mg/dL AST (14-36) U/L ALT (4-34) U/L Alkaline Phosphatase (38-126) U/L Troponin I <0.012 (0.000-0.034) ng/mL Total Protein (6.3-8.2) g/dL Albumin (3.5-5.0) g/dL Disposition Clinical Impression: Vertigo Disposition: HOME SELF-CARE Condition: Good Instructions (If sedation given, give patient instructions): Vertigo (ED) Additional Instructions: Patient should take Antivert only if needed. Prescriptions: Meclizine [Antivert] 25 mg PO TID #20 tab Is patient prescribed a controlled substance at d/c from ED?: No Referrals: Uri Chaudhary MD [Primary Care Provider] - 1-2 days Time of Disposition: 12:55
[2020-08-07 11:30] LABS: Albumin 2.9 g/dL (3.5-5.0); Magnesium 1.6 mg/dL (1.6-2.3); Potassium 3.3 mmol/L (3.5-5.1); Total Bilirubin 0.3 mg/dL (0.2-1.3); Total Protein 5.9 g/dL (6.3-8.2)
--- NOTE | 2020-08-07 11:37 | CT ---
EXAMINATION TYPE: CT brain wo con DATE OF EXAM: 08/07/2020 HISTORY: Weakness and fatigue. CT DLP: 1188.4 mGycm. Automated Exposure Control for Dose Reduction was Utilized. TECHNIQUE: CT scan of the head is performed without contrast. COMPARISON: CT brain July 16, 2018. FINDINGS: There is no acute intracranial hemorrhage or midline shift identified. There is mild diff use ventricular and sulcal prominence consistent with diffuse age-related cerebral atrophy. There is mild to moderate low-attenuation in the periventricular white matter consistent with chronic small v essel ischemic change. Scleral calcification left globe. Right globe prosthesis now present. Visualiz ed paranasal sinuses are clear. IMPRESSION: No acute intracranial hemorrhage or midline shift. There is mild diffuse cerebral atrop hy and mild to moderate chronic small vessel ischemic change redemonstrated without significant inter michael change.
--- NOTE | 2020-08-07 11:39 | XR ---
EXAMINATION TYPE: XR chest 2V DATE OF EXAM: 08/07/2020 COMPARISON: Chest x-ray March 23, 2020 HISTORY: Dizziness and weakness. TECHNIQUE: Frontal and lateral views of the chest are obtained. FINDINGS: There is chronic parenchymal changes bilaterally without suspicious focal air space opacit y, pleural effusion, or pneumothorax seen. The cardiac silhouette size is stable and within normal l imits with atherosclerotic change thoracic aorta. Degenerative change bilateral glenohumeral joints. Underlying scoliosis redemonstrated. IMPRESSION: Chronic changes without acute pulmonary process. No significant change from prior.
[2020-08-07 11:48] LABS: Prothrombin Time 10.8 sec (9.0-12.0)
[2020-08-07 12:08] LABS: Basophils # (A) 0.1 k/uL (0-0.2); Basophils % (A) 1 %; Eosinophils # (A) 0.3 k/uL (0-0.7); Eosinophils % (A) 4 %; HCT 28.9 % (34.0-46.0); HGB 9.5 gm/dL (11.4-16.0); Lymphocytes # (A) 1.3 k/uL (1.0-4.8); Lymphocytes % (A) 16 %; MCH 29.8 pg (25.0-35.0); MCHC 32.8 g/dL (31.0-37.0); MCV 90.7 fL (80.0-100.0); Mean Platelet Volume 7.9; Monocytes # (A) 0.6 k/uL (0-1.0); Monocytes % (A) 7 %; Neutrophils % (A) 72 %; Platelet Count 309 k/uL (150-450); RBC 3.18 m/uL (3.80-5.40); RDW 14.2 % (11.5-15.5); WBC 8.4 k/uL (3.8-10.6)
[2020-08-07 12:10] LABS: Partial Thromboplastin Time 21.2 sec (22.0-30.0)
[2020-08-07 12:24] VITALS: BP 129/60; PULSE 59; RESP 16
== END 2020-08-07 13:29 | disposition home or self-care (01) ==
LOC: EC 10:58
DX: R42 Dizziness and giddiness (principal); F41.9 Anxiety disorder, unspecified; E78.5 Hyperlipidemia, unspecified; I10 Essential (primary) hypertension; I25.2 Old myocardial infarction; Z87.891 Personal history of nicotine dependence; Z79.82 Long term (current) use of aspirin; Z86.73 Personal history of transient ischemic attack (TIA), and cerebral infarction without residual deficits; Z90.89 Acquired absence of other organs; Z90.49 Acquired absence of other specified parts of digestive tract; Z95.5 Presence of coronary angioplasty implant and graft; Z90.710 Acquired absence of both cervix and uterus; Z90.09 Acquired absence of other part of head and neck
CPT/HCPCS: 36415; 70450; 71046; 80053; 83735; 84484; 85025; 85610; 85730; 93005; 99285

== ENCOUNTER 2020-08-10 12:47 | Inpatient (IN) | payer MEDICARE, BC ==
[2020-08-10] MEDS ORDERED: SODIUM CHLORIDE 0.9% 1,000 ML IV STA (13:11)
[2020-08-10] MEDS ORDERED: SODIUM CHLORIDE 0.9% 500 ML 500 ML IV STA (13:11)
--- NOTE | 2020-08-10 13:16 | ED ---
Weakness HPI - General Stated complaint: Near syncope Time Seen by Provider: 08/10/20 12:47 Source: patient, EMS, RN notes reviewed, old records reviewed Mode of arrival: EMS - History of Present Illness Initial comments: This is an 89-year-old female who was seen in this emergency department 3 days ago for a complaint of dizziness who was brought in by EMS today because of a near syncopal episode she apparently was very weak and was caught by her son before she did actually fall hit the floor. She had no loss of consciousness was found to be hypotensive however paramedics found her blood pressure he 80/40 after about 700 mL of fluid it was up to 170/50. [place] apparently was very [place] she's not been drinking much fluid recently. Today she had a couple coffee and a small sip of water apparently. She also recently had right I retinal issue. No complaints with respect to that today. She still maintains a patch. No other complaints or modifying factors at this time no focal weakness reported no palpitations. MD Complaint: generalized weakness, difficulty walking - Related Data Home Medications Medication Instructions Recorded Confirmed Carvedilol 25 mg PO BID 12/18/13 08/10/20 Isosorbide Mononitrate [Imdur] 30 mg PO DAILY 12/18/13 08/10/20 Multivitamin/Iron/Folic Acid 1 tab PO DAILY 11/17/15 08/10/20 [Centrum Complete Multivit Tab] Aspirin EC [Ecotrin Low Dose] 81 mg PO DAILY 09/16/18 08/10/20 Ezetimibe [Zetia] 10 mg PO HS 12/26/18 08/10/20 LORazepam [Ativan] 1 mg PO TID PRN 12/26/18 08/10/20 Simvastatin [Zocor] 20 mg PO HS 12/26/18 08/10/20 cloNIDine HCL [Catapres] 0.3 mg PO BID 12/26/18 08/10/20 Nitroglycerin Sl Tabs [Nitrostat] 0.4 mg SL Q5M PRN 12/24/19 08/10/20 Calcium Carbonate [Calcium] 600 mg PO DAILY 08/07/20 08/10/20 Cyanocobalamin (Vitamin B-12) 1,000 mcg PO DAILY 08/07/20 08/10/20 [Vitamin B-12] Furosemide [Lasix] 20 mg PO DAILY 08/07/20 08/10/20 Mirabegron [Myrbetriq] 50 mg PO DAILY 08/07/20 08/10/20 Niacin 250 mg PO DAILY 08/07/20 08/10/20 Ofloxacin 0.3% Ophth Soln [Ocuflox 1 drop RIGHT EYE QID 08/07/20 08/10/20 Ophth Soln] prednisoLONE ACETATE 1% OPHTH 1 drop RIGHT EYE QID 08/07/20 08/10/20 [Pred Forte 1%] Previous Rx's Medication Instructions Recorded amLODIPine [Norvasc] 10 mg PO DAILY #0 01/03/20 Meclizine [Antivert] 25 mg PO TID #20 tab 08/07/20 Allergies Allergy/AdvReac Type Severity Reaction Status Date / Time oxycodone [From Percocet] Allergy Unknown Verified 08/10/20 17:05 codeine AdvReac Nausea & Verified 08/10/20 17:05 Vomiting meperidine HCl [From Demerol] AdvReac Nausea & Verified 08/10/20 17:05 Vomiting morphine AdvReac Nausea & Verified 08/10/20 17:05 Vomiting Review of Systems ROS Statement: Those systems with pertinent positive or pertinent negative responses have been documented in the HPI. ROS Other: All systems not noted in ROS Statement are negative. Past Medical History Past Medical History: Chest Pain / Angina, CVA/TIA, GERD/Reflux, Hyperlipidemia, Hypertension, Myocardial Infarction (VT), Pneumonia, Syncope Additional Past Medical History / Comment(s): Past syncopal episodes, TIAs, UTIs, DJD spin, chronic back pain, arthritis hands, diverticular disease.urinary incontinence- wears briefs Last Myocardial Infarction Date:: 11/16/2010 History of Any Multi-Drug Resistant Organisms: None Reported Past Surgical History: Adenoidectomy, Appendectomy, Back Surgery, Cholecyste ctomy, Heart Catheterization, Hysterectomy, Tonsillectomy Additional Past Surgical History / Comment(s): cardiac caths in 2010 and 2013, back fusion/discectomy, colonoscopy, bilateral cataract removal with lens implants, Past Anesthesia/Blood Transfusion Reactions: Postoperative Nausea & Vomiting (PONV) Past Psychological History: Anxiety Smoking Status: Former smoker Past Alcohol Use History: None Reported Past Drug Use History: None Reported - Past Family History Father Additional Family Medical History / Comment(s): Father at the age of 57yrs with "heart problems". Mother Additional Family Medical History / Comment(s): Mother had an enlarged heart. She at the age of 79yrs. General Exam - General Exam Comments Initial Comments: This is a well-developed asthenic appearing female who is awake alert oriented 3 General appearance: alert, in no apparent distress Head exam: Present: atraumatic, normocephalic, normal inspection Eye exam: Present: normal appearance, PERRL, EOMI. Absent: scleral icterus, conjunctival injection, periorbital swelling ENT exam: Present: mucous membranes dry Neck exam: Present: normal inspection. Absent: tenderness, meningismus, lymphadenopathy Respiratory exam: Present: normal lung sounds bilaterally. Absent: respiratory distress, wheezes, rales, rhonchi, stridor Cardiovascular Exam: Present: regular rate, normal rhythm, normal heart sounds. Absent: systolic murmur, diastolic murmur, rubs, gallop, clicks GI/Abdominal exam: Present: soft, normal bowel sounds. Absent: distended, tenderness, guarding, rebound, rigid Extremities exam: Present: normal inspection, full ROM, normal capillary refill. Absent: tenderness, pedal edema, joint swelling, calf tenderness Back exam: Present: normal inspection Neurological exam: Present: alert, oriented X3, CN II-XII intact Psychiatric exam: Present: normal affect, normal mood Skin exam: Present: warm, dry, intact, normal color. Absent: rash Course Vital Signs 08/10/20 08/10/20 13:23 14:34 Temperature 97.5 F L Pulse Rate 62 66 Respiratory 16 18 Rate Blood Pressure 117/85 130/65 O2 Sat by Pulse 94 L 95 Oximetry - Reevaluation(s) Reevaluation #1: 08/10/20 17:10 Evaluation patient reveals no changes EKG Findings - EKG Results: EKG: interpreted by ERMD (Sinus rhythm a 63. 188 QRS duration 80 QT since QTC 420/429 pulses criteria for LVH) Medical Decision Making - Medical Decision Making The patient is feeling improved at this time. I did discuss findings with her and with Dr. Chaudhary the patient be admitted. - Lab Data Result diagrams: 08/10/20 14:29 08/10/20 14:29 Lab Results 0508/10/20 08/10/20 Range/Units 14:29 14:29 14:29 WBC 10.6 (3.8-10.6) k/uL RBC 2.94 L (3.80-5.40) m/uL Hgb 8.7 L (11.4-16.0) gm/dL Hct 26.2 L (34.0-46.0) % MCV 89.1 (80.0-100.0) fL MCH 29.5 (25.0-35.0) pg MCHC 33.1 (31.0-37.0) g/dL RDW 14.3 (11.5-15.5) % Plt Count 276 (150-450) k/uL MPV 7.1 Neutrophils % 82 % Lymphocytes % 10 % Monocytes % 5 % Eosinophils % 2 % Basophils % 0 % Neutrophils # 8.7 H (1.3-7.7) k/uL Lymphocytes # 1.0 (1.0-4.8) k/uL Monocytes # 0.5 (0-1.0) k/uL Eosinophils # 0.2 (0-0.7) k/uL Basophils # 0.0 (0-0.2) k/uL PT 10.8 (9.0-12.0) sec INR 1.0 (<1.2) APTT 22.4 (22.0-30.0) sec Sodium 136 L (137-145) mmol/L Potassium 3.5 (3.5-5.1) mmol/L Chloride 105 (98-107) mmol/L Carbon Dioxide 27 (22-30) mmol/L Anion Gap 4 mmol/L BUN 9 (7-17) mg/dL Creatinine 0.81 (0.52-1.04) mg/dL Est GFR (CKD-EPI)AfAm 76 (>60 ml/min/1.73 sqM) Est GFR (CKD-EPI)NonAf 66 (>60 ml/min/1.73 sqM) Glucose 112 H (74-99) mg/dL Plasma Lactic Acid Romeo (0.7-2.0) mmol/L Calcium 8.4 (8.4-10.2) mg/dL Magnesium 1.4 L (1.6-2.3) mg/dL Total Bilirubin 0.2 (0.2-1.3) mg/dL AST 20 (14-36) U/L ALT 8 (4-34) U/L Alkaline Phosphatase 80 (38-126) U/L Creatine Kinase 41 (30-135) U/L Troponin I (0.000-0.034) ng/mL Total Protein 5.7 L (6.3-8.2) g/dL Albumin 2.8 L (3.5-5.0) g/dL 08/10/20 08/10/20 Range/Units 14:29 14:29 WBC (3.8-10.6) k/uL RBC (3.80-5.40) m/uL Hgb (11.4-16.0) gm/dL Hct (34.0-46.0) % MCV (80.0-100.0) fL MCH (25.0-35.0) pg MCHC (31.0-37.0) g/dL RDW (11.5-15.5) % Plt Count (150-450) k/uL MPV Neutrophils % % Lymphocytes % % Monocytes % % Eosinophils % % Basophils % % Neutrophils # (1.3-7.7) k/uL Lymphocytes # (1.0-4.8) k/uL Monocytes # (0-1.0) k/uL Eosinophils # (0-0.7) k/uL Basophils # (0-0.2) k/uL PT (9.0-12.0) sec INR (<1.2) APTT (22.0-30.0) sec Sodium (137-145) mmol/L Potassium (3.5-5.1) mmol/L Chloride (98-107) mmol/L Carbon Dioxide (22-30) mmol/L Anion Gap mmol/L BUN (7-17) mg/dL Creatinine (0.52-1.04) mg/dL Est GFR (CKD-EPI)AfAm (>60 ml/min/1.73 sqM) Est GFR (CKD-EPI)NonAf (>60 ml/min/1.73 sqM) Glucose (74-99) mg/dL Plasma Lactic Acid Romeo 0.6 L (0.7-2.0) mmol/L Calcium (8.4-10.2) mg/dL Magnesium (1.6-2.3) mg/dL Total Bilirubin (0.2-1.3) mg/dL AST (14-36) U/L ALT (4-34) U/L Alkaline Phosphatase (38-126) U/L Creatine Kinase (30-135) U/L Troponin I <0.012 (0.000-0.034) ng/mL Total Protein (6.3-8.2) g/dL Albumin (3.5-5.0) g/dL - Radiology Data Radiology results: report reviewed (Imaging reviewed no acute findings.), image reviewed Disposition Clinical Impression: Syncope due to orthostatic hypotension, Dehydration, Hypomagnesemia Disposition: ADMITTED IP TO THIS [facility] Condition: Fair Referrals: Uri Chaudhary MD [Primary Care Provider] - 1-2 days
--- NOTE | 2020-08-10 13:55 | XR ---
EXAMINATION TYPE: XR chest 2V DATE OF EXAM: 08/10/2020 COMPARISON: Chest x-ray 08/07/2020 HISTORY: Weakness, abnormal chest x-ray, patient feels cold TECHNIQUE: Frontal and lateral views of the chest are obtained. FINDINGS: Interstitial changes within the lungs are again noted, prominent lung volumes may be indic ative of underlying COPD. Aorta is dense. Heart is stable. No evident pneumothorax or pleural effusio n. There are coronary artery calcifications present. There is a spinal curvature. Apical pleural thic kening, scarring is again noted, there may be chronic mucus plugging, there is bronchial wall thicken ing. IMPRESSION: Stable abnormal findings. Correlate for chronic bronchitis.
[2020-08-10 14:47] LABS: Basophils % (A) 0 %; Eosinophils # (A) 0.2 k/uL (0-0.7); Eosinophils % (A) 2 %; HCT 26.2 % (34.0-46.0); HGB 8.7 gm/dL (11.4-16.0); Lymphocytes % (A) 10 %; MCH 29.5 pg (25.0-35.0); MCHC 33.1 g/dL (31.0-37.0); MCV 89.1 fL (80.0-100.0); Mean Platelet Volume 7.1; Monocytes # (A) 0.5 k/uL (0-1.0); Monocytes % (A) 5 %; Neutrophils # (A) 8.7 k/uL (1.3-7.7); Neutrophils % (A) 82 %; Platelet Count 276 k/uL (150-450); RBC 2.94 m/uL (3.80-5.40); RDW 14.3 % (11.5-15.5); WBC 10.6 k/uL (3.8-10.6)
[2020-08-10 14:57] LABS: Albumin 2.8 g/dL (3.5-5.0); Calcium 8.4 mg/dL (8.4-10.2); Magnesium 1.4 mg/dL (1.6-2.3); Potassium 3.5 mmol/L (3.5-5.1); Total Bilirubin 0.2 mg/dL (0.2-1.3); Total Protein 5.7 g/dL (6.3-8.2)
[2020-08-10 14:58] LABS: Partial Thromboplastin Time 22.4 sec (22.0-30.0); Prothrombin Time 10.8 sec (9.0-12.0)
[2020-08-10] MEDS ORDERED: MAGNESIUM SULFATE-D5W PMX 1 GM in DEXTROSE/WATER 1 100ML.BAG IVPB ONE (15:19)
[2020-08-10] MEDS ORDERED: NALOXONE 0.4 MG/ML 1 ML VIAL IV PRN (17:12)
[2020-08-10] MEDS ORDERED: NITROGLYCERIN SL TABS 0.4 MG TAB SUBLINGUAL PRN (17:13)
[2020-08-10 18:17] LABS: Appearance,Urine Clear (Clear); Bilirubin,Urine Negative (Negative); Blood,Urine Negative (Negative); Color,Urine Yellow; Glucose,Urine (UA) Negative (Negative); Hyaline Casts,Urine 1 /lpf (0-2); Ketones,Urine Negative (Negative); Leukocyte Esterase,Urine Small (Negative); Mucus,Urine Rare /hpf; Nitrite,Urine Negative (Negative); Protein,Urine 2+ (Negative); RBC,Urine 1 /hpf (0-5); Specific Gravity,Urine 1.008 (1.001-1.035); Squamous Epithelial Cell,Urine <1 /hpf (0-4); Urobilinogen,Urine <2.0 mg/dL (<2.0); WBC,Urine 18 /hpf (0-5)
[2020-08-10] MEDS: SODIUM CHLORIDE 0.9% 1,000 ML IV SCH (19:21)
[2020-08-10] MEDS: EZETIMIBE 10 MG TAB PO SCH (19:21)
[2020-08-10] MEDS: OFLOXACIN 0.3% OPHTH DROPS 5 ML BOTTLE RIGHT EYE SCH ×2 (19:22→21:45)
[2020-08-10] MEDS: prednisoLONE ACETATE 1% OPHTH DROPS 5 ML BTL RIGHT EYE SCH ×2 (19:22→21:45)
[2020-08-10] MEDS: LORazepam 1 MG TAB PO PRN (19:29)
[2020-08-10] MEDS: carvediloL 12.5 MG TAB PO SCH (19:30)
[2020-08-10] MEDS: ATORVASTATIN 10 MG TAB PO SCH (19:30)
[2020-08-10] MEDS: cloNIDine HCL 0.1 MG TAB PO SCH (19:36)
[2020-08-10] MEDS: MECLIZINE 25 MG TAB PO SCH (21:45)
[2020-08-11] MEDS: carvediloL 12.5 MG TAB PO SCH ×2 (06:25→16:11)
[2020-08-11] MEDS: SODIUM CHLORIDE 0.9% 1,000 ML IV SCH ×2 (06:25→18:41)
--- NOTE | 2020-08-11 07:52 | P.HPIM ---
History of Present Illness Chief Complaint: Fall with presyncope The patient is 89-year-old white female with known history of hypertension who was seen in the emergency room to have significant syncopal episode at home. She and her have been becoming more frail in the last year. She fell and was caught by her son. No loss of consciousness but found to be significantly hypertensive. No overt focal weakness. Where they live was very hot as well and we suspect dehydration secondary to minimal fluid intake. Review of Systems Constitutional: Reports as per HPI Ears, nose, mouth and throat: Denies headache, Denies sore throat Cardiovascular: Denies chest pain, Denies shortness of breath Respiratory: Denies cough Gastrointestinal: Denies abdominal pain, Denies diarrhea, Denies nausea, Denies vomiting Genitourinary: Denies dysuria, Denies hematuria Musculoskeletal: Denies myalgias Integumentary: Denies pruritus, Denies rash Past Medical History Past Medical History: Chest Pain / Angina, CVA/TIA, GERD/Reflux, Hyperlipidemia, Hypertension, Myocardial Infarction (MD), Pneumonia, Syncope Additional Past Medical History / Comment(s): Past syncopal episodes, TIAs, UTIs, DJD spin, chronic back pain, arthritis hands, diverticular disease.urinary incontinence- wears briefs Last Myocardial Infarction Date:: 11/16/2010 History of Any Multi-Drug Resistant Organisms: None Reported Past Surgical History: Adenoidectomy, Appendectomy, Back Surgery, Cholecystectomy, Heart Catheterization, Hysterectomy, Tonsillectomy Additional Past Surgical History / Comment(s): cardiac caths in 2010 and 2013, back fusion/discectomy, colonoscopy, bilateral cataract removal with lens implants, Past Anesthesia/Blood Transfusion Reactions: Postoperative Nausea & Vomiting (PONV) Past Psychological History: Anxiety Additional Psychological History / Comment(s): takes ativan for anxiety Smoking Status: Never smoker Past Alcohol Use History: None Reported Additional Past Alcohol Use History / Comment(s): Pt states she started smoking in 1950 and quit in 1975. She will have an occasional glass of wine. Past Drug Use History: None Reported - Past Family History Father Additional Family Medical History / Comment(s): Father at the age of 57yrs with "heart problems". Mother Additional Family Medical History / Comment(s): Mother had an enlarged heart. She at the age of 79yrs. Medications and Allergies Home Medications Medication Instructions Recorded Confirmed Type Carvedilol 25 mg PO BID 12/18/13 08/10/20 History Isosorbide Mononitrate [Imdur] 30 mg PO DAILY 12/18/13 08/10/20 History Multivitamin/Iron/Folic Acid 1 tab PO DAILY 11/17/15 08/10/20 History [Centrum Complete Multivit Tab] Aspirin EC [Ecotrin Low Dose] 81 mg PO DAILY 09/16/18 08/10/20 History Ezetimibe [Zetia] 10 mg PO HS 12/26/18 08/10/20 History LORazepam [Ativan] 1 mg PO TID PRN 12/26/18 08/10/20 History Simvastatin [Zocor] 20 mg PO HS 12/26/18 08/10/20 History cloNIDine HCL [Catapres] 0.3 mg PO BID 12/26/18 08/10/20 History Nitroglycerin Sl Tabs [Nitrostat] 0.4 mg SL Q5M PRN 12/24/19 08/10/20 History amLODIPine [Norvasc] 10 mg PO DAILY #0 01/03/20 08/10/20 Rx Calcium Carbonate [Calcium] 600 mg PO DAILY 08/07/20 08/10/20 History Cyanocobalamin (Vitamin B-12) 1,000 mcg PO DAILY 08/07/20 08/10/20 History [Vitamin B-12] Furosemide [Lasix] 20 mg PO DAILY 08/07/20 08/10/20 History Meclizine [Antivert] 25 mg PO TID #20 tab 08/07/20 08/10/20 Rx Mirabegron [Myrbetriq] 50 mg PO DAILY 08/07/20 08/10/20 History Niacin 250 mg PO DAILY 08/07/20 08/10/20 History Ofloxacin 0.3% Ophth Soln [Ocuflox 1 drop RIGHT EYE QID 08/07/20 08/10/20 History Ophth Soln] prednisoLONE ACETATE 1% OPHTH 1 drop RIGHT EYE QID 08/07/20 08/10/20 History [Pred Forte 1%] Allergies Allergy/AdvReac Type Severity Reaction Status Date / Time oxycodone [From Percocet] Allergy Unknown Verified 08/10/20 17:05 codeine AdvReac Nausea & Verified 08/10/20 17:05 Vomiting meperidine HCl [From Demerol] AdvReac Nausea & Verified 08/10/20 17:05 Vomiting morphine AdvReac Nausea & Verified 08/10/20 17:05 Vomiting Physical Exam Vitals: Vital Signs Temp Pulse Pulse Resp BP BP Pulse Ox 08/11/20 04:00 98.1 F 68 18 150/67 92 L 08/11/20 00:00 98 F 68 18 123/62 92 L 08/10/20 20:07 97.8 F 67 18 129/58 95 08/10/20 19:00 81 20 137/74 97 08/10/20 14:34 66 18 130/65 95 08/10/20 13:23 97.5 F L 62 16 117/85 94 L Intake and Output 08/10/20 08/11/20 08/11/20 22:59 06:59 14:59 Intake Total 480 480 Balance 480 480 Intake: Intake, IV Titration 480 Amount Magnesium Sulfate-D5w Pmx 480 1 gm In Dextrose/Water 1 100ml.bag @ 100 mls/hr IVPB ONCE ONE Rx#: [id number] Oral 480 Other: Voiding Method Toilet Toilet Diaper Diaper Incontinent Incontinent # Voids 2 3 Weight 43.091 kg 46.5 kg - Constitutional General appearance: no acute distress - EENT Eyes: EOMI - Neck Neck: no lymphadenopathy - Cardiovascular Rhythm: regular Heart sounds: normal: S1, S2 Abnormal Heart Sounds: no S3 Gallop - Gastrointestinal General gastrointestinal: soft, no tenderness - Musculoskeletal Musculoskeletal: generalized weakness - Psychiatric Psychiatric: A&O x's 3, appropriate affect Results CBC & Chem 7: 08/10/20 14:29 08/10/20 14:29 Labs: Abnormal Lab Results - Last 24 Hours (Table) 08/10/20 08/10/20 08/10/20 Range/Units 14:29 14:29 14:29 RBC 2.94 L (3.80-5.40) m/uL Hgb 8.7 L (11.4-16.0) gm/dL Hct 26.2 L (34.0-46.0) % Neutrophils # 8.7 H (1.3-7.7) k/uL Sodium 136 L (137-145) mmol/L Glucose 112 H (74-99) mg/dL Plasma Lactic Acid Romeo (0.7-2.0) mmol/L Magnesium 1.4 L (1.6-2.3) mg/dL Total Protein 5.7 L (6.3-8.2) g/dL Albumin 2.8 L (3.5-5.0) g/dL Urine Protein 2+ H (Negative) Ur Leukocyte Esterase Small H (Negative) Urine WBC 18 H (0-5) /hpf Urine Mucus Rare H (None) /hpf 08/10/20 Range/Units 14:29 RBC (3.80-5.40) m/uL Hgb (11.4-16.0) gm/dL Hct (34.0-46.0) % Neutrophils # (1.3-7.7) k/uL Sodium (137-145) mmol/L Glucose (74-99) mg/dL Plasma Lactic Acid Romeo 0.6 L (0.7-2.0) mmol/L Magnesium (1.6-2.3) mg/dL Total Protein (6.3-8.2) g/dL Albumin (3.5-5.0) g/dL Urine Protein (Negative) Ur Leukocyte Esterase (Negative) Urine WBC (0-5) /hpf Urine Mucus (None) /hpf Microbiology - Last 24 Hours (Table) 08/10/20 14:29 Urine Culture - Preliminary Urine,Clean Catch Assessment and Plan (1) Dehydration Current Visit: Yes Status: Acute Code(s): E86.0 - DEHYDRATION SNOMED Code(s): 04341133 (2) Hypomagnesemia Current Visit: Yes Status: Acute Code(s): E83.42 - HYPOMAGNESEMIA SNOMED Code(s): 094246599 (3) Syncope due to orthostatic hypotension Current Visit: Yes Status: Acute Code(s): I95.1 - ORTHOSTATIC HYPOTENSION SNOMED Code(s): 882658358 (4) At risk for readmission to hospital Current Visit: No Status: Acute Code(s): Z91.89 - OTH PERSONAL RISK FACTORS, NOT ELSEWHERE CLASSIFIED SNOMED Code(s): 4160932320844 (5) HTN (hypertension) Current Visit: No Status: Acute Code(s): I10 - ESSENTIAL (PRIMARY) HYPERTENSION SNOMED Code(s): 61553304 (6) Near syncope Current Visit: No Status: Acute Code(s): R55 - SYNCOPE AND COLLAPSE SNOMED Code(s): 698534380 Plan: I suspect element of dehydration. Watch blood pressure closely. Reconcile medications with this in mind. Check CBC and CMP in a.m. Dr. Yusuf's group will be covering for the weekend. Time with Patient: Greater than 30
[2020-08-11] MEDS: CALCIUM CARBONATE 500 MG CHEWABLE PO SCH (10:05)
[2020-08-11] MEDS: FUROSEMIDE 20 MG TAB PO SCH (10:05)
[2020-08-11] MEDS: cloNIDine HCL 0.1 MG TAB PO SCH ×2 (10:05→19:47)
[2020-08-11] MEDS: ISOSORBIDE MONONITRATE ER 30 MG TAB.ER.24H PO SCH (10:05)
[2020-08-11] MEDS: MECLIZINE 25 MG TAB PO SCH ×3 (10:06→20:55)
[2020-08-11] MEDS: amLODIPine 10 MG TAB PO SCH (10:06)
[2020-08-11] MEDS: NIACIN TR 250 MG CAPSULE.ER PO SCH (10:06)
[2020-08-11] MEDS: ASPIRIN 81 MG PO SCH (10:06)
[2020-08-11] MEDS: CYANOCOBALAMIN 500 MCG TAB PO SCH (10:06)
[2020-08-11] MEDS: MULTIVITAMINS, THERA 1 EACH TAB PO SCH (10:06)
[2020-08-11] MEDS: OFLOXACIN 0.3% OPHTH DROPS 5 ML BOTTLE RIGHT EYE SCH ×4 (10:08→23:27)
[2020-08-11] MEDS: prednisoLONE ACETATE 1% OPHTH DROPS 5 ML BTL RIGHT EYE SCH ×4 (10:08→23:27)
[2020-08-11] MEDS: PATIENT'S OWN (Mirabegron [Myrbetriq] 50 MG Tab.Er.24h) PO SCH (10:09)
--- NOTE | 2020-08-11 11:40 | ECHOF ---
Referral Reason:near syncope MEASUREMENTS -------- HEIGHT: 152.4 cm WEIGHT: 46.3 kg BP: 150/67 RVIDd: 2.5 cm (< 3.3) IVSd: 1.1 cm (0.6 - 1.1) LVIDd: 3.2 cm (3.9 - 5.3) LVPWd: 1.2 cm (0.6 - 1.1) IVSs: 1.6 cm LVIDs: 2.3 cm LVPWs: 1.6 cm LA Diam: 2.7 cm (2.7 - 3.8) LAESV Index (A-L): 26.64 ml/m Ao Diam: 2.6 cm (2.0 - 3.7) AV Cusp: 1.7 cm (1.5 - 2.6) MV EXCURSION: 20.022 mm (> 18.000) MV EF SLOPE: 130 mm/s (70 - 150) EPSS: 0.4 cm MV E Devendra: 1.11 m/s MV DecT: 205 ms MV A Devendra: 1.19 m/s MV E/A Ratio: 0.93 AV maxP.80 mmHg AV meanP.25 mmHg AR PHT: 654 ms RAP: 5.00 mmHg RVSP: 38.43 mmHg FINDINGS -------- Sinus rhythm. This was a technically good study. The left ventricular size is normal. There is borderline concentric left ventricular hypertrophy. Overall left ventricular systolic function is normal with, an EF between 60 - 65 %. The right ventricle is normal in size. Normal LA size by volume 22+/-6 ml/m2. The right atrium is normal in size. Interatrial and interventricular septum intact. There is mild aortic valve sclerosis. There is mild aortic regurgitation. There is mild aortic st enosis present. Peak/mean gradient across the Aortic Valve is 17.80mmHg / 10.25mmHg. The mitral valve leaflets are mildly thickened. Mild mitral annular calcification present. There is trace to mild mitral regurgitation. Mild tricuspid regurgitation present. There is mild pulmonary hypertension. The right ventricular systolic pressure, as measured by Doppler, is 38.43mmHg. Trace/mild (physiologic) pulmonic regurgitation. The aortic root size is normal. Normal inferior vena cava with normal inspiratory collapse consistent with estimated right atrial pre ssure of 5 mmHg. The inferior vena cava is mildly dilated. There is no pericardial effusion. CONCLUSIONS -------- 1. The left ventricular size is normal. 2. There is borderline concentric left ventricular hypertrophy. 3. Overall left ventricular systolic function is normal with, an EF between 60 - 65 %. 4. There is mild aortic valve sclerosis. 5. There is mild aortic regurgitation. 6. There is mild aortic stenosis present. 7. Peak/mean gradient across the Aortic Valve is 17.80mmHg / 10.25mmHg. 8. The mitral valve leaflets are mildly thickened. 9. Mild mitral annular calcification present. 10. There is trace to mild mitral regurgitation. 11. Mild tricuspid regurgitation present. 12. There is mild pulmonary hypertension. 13. The right ventricular systolic pressure, as measured by Doppler, is 38.43mmHg. 14. Trace/mild (physiologic) pulmonic regurgitation. 15. The inferior vena cava is mildly dilated. 16. There is no pericardial effusion. TOOL DESIGN DRAFTER: Socorro Tan RDCS
--- NOTE | 2020-08-11 11:57 | P.CRDCN ---
History of Present Illness History of present illness: HISTORY OF PRESENTING ILLNESS This is a pleasant 89-year-old female past medical history significant for tokotsubo cardiomyopathy 2010, hypertension, dyslipidemia, and TIAs and rec ent eye surgery. She follows in the office with Dr. Spaulding. We have been asked to see in consultation for syncope/dizziness. She presented to the hospital yesterday with symptoms of dizziness and near syncope. She states over the previous week this has happened on 3 separate occasions. It occurs while she is walking around her home she starts to feel a funny sensation in her head. She states it feels like she is floating and she knows she is going to fall if she doesn't get herself to the ground. All 3 times she has been able to hold onto the wall and lower herself to the ground. EMS came on the first occasion and she was told her blood pressure was moderately low however it did improve since she did not transport to the hospital. On the third occurrence yesterday EMS was again called and she was transported to the hospital. According to ER documentation on arrival to her home her blood pressure was 80/40. On arrival to the emergency department blood pressure was 117/85. On all three occasions she only feels symptoms of light headedness. No chest pain, shortness of breath, palpitations, nausea, vomiting or diaphoresis. For blood pressure management she takes amlodipine 10 mg daily, clonidine 0.3 mg twice a day, Coreg 25 mg twice a day and she is also on Imdur 30 mg daily. EMS documentation did mention her trailer home was extremely warm on arrival. The patient states she is under a significant amount of stress. Her is in a alf with a poor prognosis and her daughter is currently battling breast cancer. She is currently wearing a patch over the right eye. She states she had surgery for a partially detached retina 3 weeks ago. DIAGNOSTICS EKG reveals sinus mechanism heart rate of 63. Telemetry tracings indicate distant sinus mechanism with no acute arrhythmia or pauses. Chest xray treated for an acute cardiopulmonary process. Laboratory reviewed, WBC 10.6, hemoglobin 8.7, platelets 276, sodium 136, potassium 3.5, creatinine 0.81, magnesium 1.4, troponin negative x1. She underwent a Lexiscan stress test and echocardiogram in December of last year. Lexiscan was negative for reversible cardiac ischemia and echocardiogram revealed preserved LV systolic function with ejection fraction 55-60%, mild aortic stenosis with a mean gradient of 12 mmHg, mild MR and mild TR. Most recent cardiac catheterization performed in 2013 revealed left main no evidence of stenosis, LAD 20-30% disease in the proximal to mid portion, circumflex no significant disease, RCA no significant disease. REVIEW OF SYSTEMS At the time of my exam: CONSTITUTIONAL: Denies fever or chills. CARDIOVASCULAR: Denies chest pain, shortness of breath, orthopnea, PND or palpitations. RESPIRATORY: Denies cough. GASTROINTESTINAL: Denies abdominal pain, diarrhea, constipation, nausea or vomiting. MUSCULOSKELETAL: Denies myalgias. NEUROLOGIC: Denies numbness, tingling, headacbe or weakness. ENDOCRINE: Denies fatigue, weight change, polydipsia or polyurina. GENITOURINARY: Denies burning, hematuria or urgency with micturation. HEMATOLOGIC: Denies history of anemia or bleeding. PHYSICAL EXAMINATION Blood pressure 137/74 heart rate 81 afebrile and maintaining oxygen saturation on room air. CONSTITUTIONAL: No apparent distress. HEENT: Head is normocephalic. Pupils are equal, round. Sclerae anicteric. Mucous membranes of the mouth are moist. No JVD. No carotid bruit. CHEST EXAMINATION: Lungs are clear to auscultation. No chest wall tenderness is noted on palpation or with deep breathing. HEART EXAMINATION: Regular rate and rhythm. S1, S2 heard. Systolic ejection murmur at the base, no gallops or rub. ABDOMEN: Soft, nontender. Positive bowel sounds. EXTREMITIES: 2+ peripheral pulses, no lower extremity edema and no calf tenderness. NEUROLOGIC EXAMINATION: Patient is awake, alert and oriented x3. ASSESSMENT Near syncope Hypomagnesemia History of Takotsubo Hypertension Dyslipidemia Recent eye surgery for partially detached retina PLAN Check for orthostatic changes. Obtain 2D echocardiogram and doppler study to assess cardiac structure and fu nction. Magnesium replaced per protocol. Check d-dimer and CTA if elevated. Ongoing telemetry monitoring. Thank you kindly for this consultation. Nurse Practitioner note has been reviewed, I agree with a documented findings and plan of care. Patient was seen and examined. Past Medical History Past Medical History: Chest Pain / Angina, CVA/TIA, GERD/Reflux, Hyperlipidemia, Hypertension, Myocardial Infarction ([place]), Pneumonia, Syncope Additional Past Medical History / Comment(s): Past syncopal episodes, TIAs, UTIs, DJD spin, chronic back pain, arthritis hands, diverticular disease.urinary incontinence- wears briefs Last Myocardial Infarction Date:: 11/16/2010 History of Any Multi-Drug Resistant Organisms: None Reported Past Surgical History: Adenoidectomy, Appendectomy, Back Surgery, Cholecystectomy, Heart Catheterization, Hysterectomy, Tonsillectomy Additional Past Surgical History / Comment(s): cardiac caths in 2010 and 2013, back fusion/discectomy, colonoscopy, bilateral cataract removal with lens implants, Past Anesthesia/Blood Transfusion Reactions: Postoperative Nausea & Vomiting (P ONV) Past Psychological History: Anxiety Additional Psychological History / Comment(s): takes ativan for anxiety Smoking Status: Never smoker Past Alcohol Use History: None Reported Additional Past Alcohol Use History / Comment(s): Pt states she started smoking in 1949 and quit in 1975. She will have an occasional glass of wine. Past Drug Use History: None Reported - Past Family History Father Additional Family Medical History / Comment(s): Father at the age of 57yrs with "heart problems". Mother Additional Family Medical History / Comment(s): Mother had an enlarged heart. She at the age of 79yrs. Medications and Allergies Home Medications Medication Instructions Recorded Confirmed Type Carvedilol 25 mg PO BID 12/18/13 08/10/20 History Isosorbide Mononitrate [Imdur] 30 mg PO DAILY 12/18/13 08/10/20 History Multivitamin/Iron/Folic Acid 1 tab PO DAILY 11/17/15 08/10/20 History [Centrum Complete Multivit Tab] Aspirin EC [Ecotrin Low Dose] 81 mg PO DAILY 09/16/18 08/10/20 History Ezetimibe [Zetia] 10 mg PO HS 12/26/18 08/10/20 History LORazepam [Ativan] 1 mg PO TID PRN 12/26/18 08/10/20 History Simvastatin [Zocor] 20 mg PO HS 12/26/18 08/10/20 History cloNIDine HCL [Catapres] 0.3 mg PO BID 12/26/18 08/10/20 History Nitroglycerin Sl Tabs [Nitrostat] 0.4 mg SL Q5M PRN 12/24/19 08/10/20 History amLODIPine [Norvasc] 10 mg PO DAILY #0 01/03/20 08/10/20 Rx Calcium Carbonate [Calcium] 600 mg PO DAILY 08/07/20 08/10/20 History Cyanocobalamin (Vitamin B-12) 1,000 mcg PO DAILY 08/07/20 08/10/20 History [Vitamin B-12] Furosemide [Lasix] 20 mg PO DAILY 08/07/20 08/10/20 History Meclizine [Antivert] 25 mg PO TID #20 tab 08/07/20 08/10/20 Rx Mirabegron [Myrbetriq] 50 mg PO DAILY 08/07/20 08/10/20 History Niacin 250 mg PO DAILY 08/07/20 08/10/20 History Ofloxacin 0.3% Ophth Soln [Ocuflox 1 drop RIGHT EYE QID 08/07/20 08/10/20 History Ophth Soln] prednisoLONE ACETATE 1% OPHTH 1 drop RIGHT EYE QID 08/07/20 08/10/20 History [Pred Forte 1%] Allergies Allergy/AdvReac Type Severity Reaction Status Date / Time oxycodone [From Percocet] Allergy Unknown Verified 08/10/20 17:05 codeine AdvReac Nausea & Verified 08/10/20 17:05 Vomiting meperidine HCl [From Demerol] AdvReac Nausea & Verified 08/10/20 17:05 Vomiting morphine AdvReac Nausea & Verified 08/10/20 17:05 Vomiting Physical Exam Vitals: Vital Signs Temp Pulse Pulse Resp BP BP Pulse Ox 08/11/20 04:00 98.1 F 68 18 150/67 92 L 08/11/20 00:00 98 F 68 18 123/62 92 L 08/10/20 20:07 97.8 F 67 18 129/58 95 08/10/20 19:00 81 20 137/74 97 08/10/20 14:34 66 18 130/65 95 08/10/20 13:23 97.5 F L 62 16 117/85 94 L Intake and Output 08/10/20 08/11/20 08/11/20 22:59 06:59 14:59 Intake Total 480 480 Balance 480 480 Intake: Intake, IV Titration 480 Amount Magnesium Sulfate-D5w Pmx 480 1 gm In Dextrose/Water 1 100ml.bag @ 100 mls/hr IVPB ONCE ONE Rx#: [id number] Oral 480 Other: Voiding Method Toilet Toilet Diaper Diaper Incontinent Incontinent # Voids 2 3 Weight 43.091 kg 46.5 kg Results 08/10/20 14:29 08/10/20 14:29 Cardiac Enzymes 08/10/20 08/10/20 Range/Units 14:29 14:29 AST 20 (14-36) U/L Troponin I <0.012 (0.000-0.034) ng/mL Coagulation 08/10/20 Range/Units 14: PT 10.8 (9.0-12.0) sec APTT 22.4 (22.0-30.0) sec CBC 08/10/20 Range/Units 14:29 WBC 10.6 (3.8-10.6) k/uL RBC 2.94 L (3.80-5.40) m/uL Hgb 8.7 L (11.4-16.0) gm/dL Hct 26.2 L (34.0-46.0) % Plt Count 276 (150-450) k/uL Comprehensive Metabolic Panel 08/10/20 Range/Units 14:29 Sodium 136 L (137-145) mmol/L Potassium 3.5 (3.5-5.1) mmol/L Chloride 105 (98-107) mmol/L Carbon Dioxide 27 (22-30) mmol/L BUN 9 (7-17) mg/dL Creatinine 0.81 (0.52-1.04) mg/dL Glucose 112 H (74-99) mg/dL Calcium 8.4 (8.4-10.2) mg/dL AST 20 (14-36) U/L ALT 8 (4-34) U/L Alkaline Phosphatase 80 (38-126) U/L Total Protein 5.7 L (6.3-8.2) g/dL Albumin 2.8 L (3.5-5.0) g/dL Current Medications Generic Name Dose Route Start Last Admin Trade Name Freq PRN Reason Stop Dose Admin Amlodipine Besylate 10 mg 08/11/20 09:00 Amlodipine 10 Mg Tab PO DAILY [facility] Aspirin 81 mg 08/11/20 09:00 Aspirin 81 Mg PO DAILY [facility] Atorvastatin Calcium 10 mg 08/10/20 21:00 08/10/20 19:30 Atorvastatin 10 Mg Tab PO 10 mg HS LUCITA Administration Calcium Carbonate/Glycine 500 mg 08/11/20 09:00 Calcium Carbonate 500 Mg Chewable PO DAILY LUCITA Carvedilol 25 mg 08/10/20 18:00 08/11/20 06:25 Carvedilol 12.5 Mg Tab PO 25 mg BID-W/MEALS LUCITA Administration Clonidine 0.3 mg 08/10/20 21:00 08/10/20 19:36 Clonidine Hcl 0.1 Mg Tab PO 0.3 mg BID LUCITA Administration Cyanocobalamin 1,000 mcg 08/11/20 09:00 Cyanocobalamin 500 Mcg Tab PO DAILY LUCITA Ezetimibe 10 mg 08/10/20 21:00 08/10/20 19:21 Ezetimibe 10 Mg Tab PO 10 mg HS LUCITA Administration Furosemide 20 mg 08/11/20 09:00 Furosemide 20 Mg Tab PO DAILY [facility] Sodium Chloride 1,000 mls @ 80 mls/hr 08/10/20 17:15 08/11/20 06:25 Saline 0.9% IV 80 mls/hr .[id number] LUCITA Administration Isosorbide Mononitrate 30 mg 08/11/20 09:00 Isosorbide Mononitrate Er 30 Mg Tab.Er.24h PO DAILY [facility] Lorazepam 1 mg 08/10/20 17:13 08/10/20 19:29 Lorazepam 1 Mg Tab PO 1 mg TID PRN Administration Anxiety Meclizine HCl 25 mg 08/10/20 22:00 08/10/20 21:45 Meclizine 25 Mg Tab PO 25 mg TID LUCITA Administration Multivitamins 1 each 08/11/20 09:00 Multivitamins, Thera 1 Each Tab PO DAILY [facility] Naloxone HCl 0.2 mg 08/10/20 17:12 Naloxone 0.4 Mg/Ml 1 Ml Vial IV Q2M PRN Opioid Reversal Niacin 250 mg 08/11/20 09:00 Niacin Tr 250 Mg Capsule.Er PO DAILY [facility] Nitroglycerin 0.4 mg 08/10/20 17:13 Nitroglycerin Sl Tabs 0.4 Mg Tab SUBLINGUAL Q5M PRN Chest Pain Patient's Own ( 50 mg 08/11/20 09:00 Mirabegron [ PO Myrbetriq] 50 Mg Tab DAILY LUCITA .Er.24h) Ofloxacin 1 drops 08/10/20 18:00 08/10/20 21:45 Ofloxacin 0.3% Ophth Drops 5 Ml Bottle RIGHT EYE 1 drops QID LUCITA Administration Prednisolone Acetate 1 drops 08/10/20 18:00 08/10/20 21:45 Prednisolone Acetate 1% Ophth Drops 5 Ml Btl RIGHT EYE 1 drops QID LUCITA Administration Intake and Output 08/10/20 08/11/20 08/11/20 22:59 06:59 14:59 Intake Total 480 480 Balance 480 480 Intake: Intake, IV Titration 480 Amount Magnesium Sulfate-D5w Pmx 480 1 gm In Dextrose/Water 1 100ml.bag @ 100 mls/hr IVPB ONCE ONE Rx#: [id number] Oral 480 Other: Voiding Method Toilet Toilet Diaper Diaper Incontinent Incontinent # Voids 2 3 Weight 43.091 kg 46.5 kg 08/10/20 14:29 08/10/20 14:29
[2020-08-11] MEDS: EZETIMIBE 10 MG TAB PO SCH (19:47)
[2020-08-11] MEDS: ATORVASTATIN 10 MG TAB PO SCH (19:47)
[2020-08-11] MEDS: LORazepam 1 MG TAB PO PRN (22:22)
[2020-08-12] MEDS: SODIUM CHLORIDE 0.9% 1,000 ML IV SCH ×2 (03:15→16:30)
[2020-08-12] MEDS: carvediloL 12.5 MG TAB PO SCH ×2 (06:30→17:59)
[2020-08-12 08:01] LABS: HCT 26.2 % (34.0-46.0); HGB 8.7 gm/dL (11.4-16.0); MCH 29.9 pg (25.0-35.0); MCHC 33.1 g/dL (31.0-37.0); MCV 90.3 fL (80.0-100.0); Mean Platelet Volume 7.2; Platelet Count 267 k/uL (150-450); RDW 14.2 % (11.5-15.5); WBC 7.2 k/uL (3.8-10.6)
[2020-08-12 08:15] LABS: ALT 7 U/L (4-34); AST 19 U/L (14-36); African American GFR (CKD) 86 (>60 ml/min/1.73 sqM); Albumin 2.6 g/dL (3.5-5.0); Alkaline Phosphatase 75 U/L (38-126); Anion Gap 3 mmol/L; Blood Urea Nitrogen 7 mg/dL (7-17); Carbon Dioxide 28 mmol/L (22-30); Chloride 106 mmol/L (98-107); Glucose 93 mg/dL (74-99); Non-African American GFR(CKD) 75 (>60 ml/min/1.73 sqM); Potassium 3.1 mmol/L (3.5-5.1); Sodium 137 mmol/L (137-145); Total Bilirubin <0.1 mg/dL (0.2-1.3); Total Protein 5.5 g/dL (6.3-8.2)
[2020-08-12] MEDS ORDERED: Potassium Replacement Protocol 1 EACH MISC MISCELLANE PRN ×2 (09:12→14:44)
[2020-08-12] MEDS: amLODIPine 10 MG TAB PO SCH (09:13)
[2020-08-12] MEDS: MULTIVITAMINS, THERA 1 EACH TAB PO SCH (09:13)
[2020-08-12] MEDS: CALCIUM CARBONATE 500 MG CHEWABLE PO SCH (09:14)
[2020-08-12] MEDS: MECLIZINE 25 MG TAB PO SCH ×3 (09:14→20:13)
[2020-08-12] MEDS: cloNIDine HCL 0.1 MG TAB PO SCH ×2 (09:14→20:13)
[2020-08-12] MEDS: ASPIRIN 81 MG PO SCH (09:14)
[2020-08-12] MEDS: ISOSORBIDE MONONITRATE ER 30 MG TAB.ER.24H PO SCH (09:15)
[2020-08-12] MEDS: CYANOCOBALAMIN 500 MCG TAB PO SCH (09:15)
[2020-08-12] MEDS: prednisoLONE ACETATE 1% OPHTH DROPS 5 ML BTL RIGHT EYE SCH ×4 (09:17→22:57)
[2020-08-12] MEDS: OFLOXACIN 0.3% OPHTH DROPS 5 ML BOTTLE RIGHT EYE SCH ×3 (09:17→22:57)
[2020-08-12] MEDS: PATIENT'S OWN (Mirabegron [Myrbetriq] 50 MG Tab.Er.24h) PO SCH (09:19)
[2020-08-12] MEDS: POTASSIUM CHLORIDE ER 20 MEQ TAB.ER PO SCH ×2 (09:25→10:45)
[2020-08-12] MEDS: FUROSEMIDE 20 MG TAB PO SCH (09:25)
[2020-08-12] MEDS: NIACIN TR 250 MG CAPSULE.ER PO SCH (10:45)
--- NOTE | 2020-08-12 13:12 | P.PN ---
Subjective Progress Note Date: 08/12/20 HISTORY OF PRESENT ILLNESS: This is a pleasant 89-year-old female past medical history significant for tokotsubo cardiomyopathy 2010, hypertension, dyslipidemia, and TIAs and recent eye surgery. She follows in the office with Dr. Spaulding. We have been asked to see in consultation for syncope/dizziness. She presented to the hospital yesterday with symptoms of dizziness and near syncope. She states over the previous week this has happened on 3 separate occasions. It occurs while she is walking around her home she starts to feel a funny sensation in her head. She states it feels like she is floating and she knows she is going to fall if she doesn't get herself to the ground. All 3 times she has been able to hold onto the wall and lower herself to the ground. EMS came on the first occasion and she was told her blood pressure was moderately low however it did improve since she did not transport to the hospital. On the third occurrence yesterday EMS was again called and she was transported to the hospital. According to ER documentation on arrival to her home her blood pressure was 80/40. On arrival to the emergency department blood pressure was 117/85. On all three occasions she only feels symptoms of light headedness. No chest pain, shortness of breath, palpitations, nausea, vomiting or diaphoresis. For blood pressure management she takes amlodipine 10 mg daily, clonidine 0.3 mg twice a day, Coreg 25 mg twice a day and she is also on Imdur 30 mg daily. EMS documentation did mention her trailer home was extremely warm on arrival. The patient states she is under a significant amount of stress. Her is in a intermediate with a poor prognosis and her daughter is currently battling breast cancer. She is currently wearing a patch over the right eye. She states she had surgery for a partially detached retina 3 weeks ago. DIAGNOSTICS EKG reveals sinus mechanism heart rate of 63. Telemetry tracings indicate distant sinus mechanism with no acute arrhythmia or pauses. Chest xray treated for an acute cardiopulmonary process. Laboratory reviewed, WBC 10.6, hemoglobin 8.7, platelets 276, sodium 136, potassium 3.5, creatinine 0.81, magnesium 1.4, troponin negative x1. She underwent a Lexiscan stress test and echocardiogram in December of last year. Lexiscan was negative for reversible cardiac ischemia and echocardiogram revea led preserved LV systolic function with ejection fraction 55-60%, mild aortic stenosis with a mean gradient of 12 mmHg, mild MR and mild TR. Most recent cardiac catheterization performed in 2013 revealed left main no evidence of stenosis, LAD 20-30% disease in the proximal to mid portion, circumflex no significant disease, RCA no significant disease. 08/12/2020 Patient examined this morning at the bedside. Patient denies chest pain or pressure. She denies shortness of breath. She denies dizziness or lightheadedness. No further episodes of near syncope. Telemetry did not reveal any arrhythmias or significant bradycardia. Orthostatic blood pressures were unremarkable. Echocardiogram completed revealed ejection fraction 60-65%, mild aortic stenosis, trace to mild mitral regurgitation, mild tricuspid regurgitation, and mild pulmonary hypertension. D-dimer mildly abnormal at 0.70. PHYSICAL EXAM: VITAL SIGNS: Reviewed. GENERAL: Well-developed in no acute distress. NECK: Supple. No JVD or thyromegaly LUNGS: Respirations even and unlabored. Lungs essentially clear to auscultation bilaterally. HEART: Regular rate and rhythm. S1 and S2 heard. EXTREMITIES: Normal range of motion. No clubbing or cyanosis. Peripheral pulses intact. No lower extremity edema ASSESSMENT: Near syncope Hypomagnesemia History of Takotsubo Hypertension Dyslipidemia Recent eye surgery for partially detached retina PLAN: Continue current cardiac medications Continue telemetry monitoring Obtain CTA chest to rule out pulmonary embolism Further recommendations pending patient course Nurse practitioner note has been reviewed by physician. Signing provider agrees with the documented findings, assessment, and plan of care. Objective - Vital Signs Vital signs: Vital Signs Temp 96.9 F L 08/12/20 08:52 Pulse 66 08/12/20 12:00 Resp 18 08/12/20 12:00 BP 109/53 08/12/20 12:00 Pulse Ox 96 08/12/20 12:00 Intake & Output 08/11/20 08/12/20 08/12/20 18:59 06:59 18:59 Intake Total 598 480 250 Output Total 220 Balance 598 260 250 Weight 47 kg Intake: Oral 598 480 250 Output: Urine 220 Other: Voiding Method Toilet Toilet Toilet Diaper Diaper Diaper Incontinent Incontinent Incontinent # Voids 1 - Labs CBC & Chem 7: 08/12/20 07:18 08/12/20 07:18 Labs: Abnormal Lab Results - Last 24 Hours (Table) 08/12/20 08/12/20 Range/Units 07:18 07:18 RBC 2.90 L (3.80-5.40) m/uL Hgb 8.7 L (11.4-16.0) gm/dL Hct 26.2 L (34.0-46.0) % Potassium 3.1 L (3.5-5.1) mmol/L Calcium 8.0 L (8.4-10.2) mg/dL Total Bilirubin <0.1 L (0.2-1.3) mg/dL Total Protein 5.5 L (6.3-8.2) g/dL Albumin 2.6 L (3.5-5.0) g/dL Microbiology - Last 24 Hours (Table) 08/10/20 14:29 Urine Culture - Final Urine,Clean Catch
--- NOTE | 2020-08-12 13:20 | CT ---
EXAMINATION TYPE: CT chest angio for PE DATE OF EXAM: 08/12/2020 COMPARISON: CT chest September 20, 2018 HISTORY: History of syncope, dehydration and elevated d dimer CT DLP: 213.3 mGycm Automated exposure control for dose reduction was used. CONTRAST: CT Chest for pulmonary embolism performed with with IV Contrast, patient injected with 48 mL of Isovu e 370. FINDINGS: LUNGS: Motion artifact degradation seen making evaluation suboptimal. There is mild to moderate perib ronchial wall thickening bilaterally redemonstrated. Areas of endobronchial occlusion or suspected mu cous plugging bilaterally remain present. Additional scattered multifocal areas of nodules and/or nod ular consolidation are present bilaterally, for reference 1.7 x 1.2 cm area axial image 54 wrist mild -to-moderate biapical pleural/parenchymal scarring. Faint reticulonodular opacities in the upper lung s bilaterally. Trace bilateral pleural effusions mid lung level. No pneumothorax seen bilaterally. MEDIASTINUM: There is satisfactory enhancement of the pulmonary artery and its branches, there is no CT evidence for pulmonary embolism. Satisfactory enhancement of the thoracic aorta without dissection . Mild to moderate mixed plaque in the arch and descending aorta. Prominent right and left pulmonary arteries, CT findings consistent with underlying pulmonary artery hypertension. There are no new gre ater than 1 cm hilar or mediastinal lymph nodes. No cardiomegaly or pericardial effusion is seen. Coronary artery calcification is redemonstrated. OTHER: Underlying dextroconvex scoliosis centered mid thoracic spine. IMPRESSION: 1. No CT evidence for acute pulmonary embolism. 2. Recurrent bronchial wall thickening with areas of mucous plugging, groundglass and reticulonodular opacities bilaterally. Correlate for acute infectious process. Areas of more nodular consolidation o r nodularity noted on current study are new from prior CT exam. Short-term follow-up CT advised to re assess.
[2020-08-12] MEDS ORDERED: POTASSIUM CHLORIDE ER 20 MEQ TAB.ER PO SCH (15:00)
--- NOTE | 2020-08-12 15:48 | P.PN ---
Subjective This is a pleasant 89 years old female with past medical history of CVA/TIA, GERD, hyperlipidemia, hypertension, syncopal episode and TIAs, chronic back pain, urinary incontinence. Presents to the hospital because of recurrent near syncope episodes and lightheadedness. Patient recently had right eye surgery about 2 weeks ago for retinal tear, her shellacker is at [facility], right eye is currently covered with a pack with no complaints of pain or anything by the patient. Patient follow up with Dr. Chaudhary. Patient states that she was walking between her problems when she felt dizzy and was going to fall had to hold down for that reason. And this happened for her 3 times within one week, she never passed out, however she remained on the floor for 15-20 minutes total somebody came and helped her up. No loss of consciousness. Vitals are stable and orthostatic vitals are negative. Labs including CBC, BMP, liver enzymes, INR, urinalysis are unremarkable. D- dimer is elevated at 0.7, CTA of the chest showing no PE. Urine analysis is not suspicious for infection. Echo: Ejection fraction of 60-65% with no significant valvular heart disease Chest x-ray chronic bronchitis Patient never smoked before however she drinks glass of wine almost every day. No illicit drugs CTA of the chest: No PE. Recurrent bronchial wall thickening with areas of mucus plugging, groundglass and reticular nodular opacities bilaterally. Correlate for acute infectious process. Areas of more nodular consolidation or nodularity noted on current study are new from prior computed tomography scan. Short-term follow-up CT advised to reassess Doppler of the lower extremity is negative for DVT last month. CT of the brain earlier this month showing no acute abnormality. Patient currently On normal sinus at 80 mL per hour Objective - Vital Signs Vital signs: Vital Signs Temp 96.9 F L 08/12/20 08:52 Pulse 66 08/12/20 12:00 Resp 18 08/12/20 12:00 BP 109/53 08/12/20 12:00 Pulse Ox 96 08/12/20 12:00 Intake & Output 08/11/20 08/12/20 08/12/20 18:59 06:59 18:59 Intake Total 598 480 730 Output Total 220 Balance 598 260 730 Weight 47 kg Intake: Oral 598 480 730 Output: Urine 220 Other: Voiding Method Toilet Toilet Toilet Diaper Diaper Diaper Incontinent Incontinent Incontinent # Voids 1 4 - Exam GENERAL: The patient is alert and oriented x3, not in any acute distress. Well developed, well nourished. HEENT: Pupils are round and equally reacting to light. EOMI. No scleral icterus. No conjunctival pallor. Normocephalic, atraumatic. No pharyngeal erythema. No thyromegaly. CARDIOVASCULAR: S1 and S2 present. No murmurs, rubs, or gallops. PULMONARY: Chest is clear to auscultation, no wheezing or crackles. ABDOMEN: Soft, nontender, nondistended, normoactive bowel sounds. No palpable organomegaly. MUSCULOSKELETAL: No joint swelling or deformity. EXTREMITIES: No cyanosis, clubbing, or pedal edema. NEUROLOGICAL: Gross neurological examination did not reveal any focal deficits. SKIN: No rashes. no petechiae. - Labs CBC & Chem 7: 08/12/20 07:18 08/12/20 13:04 Labs: Abnormal Lab Results - Last 24 Hours (Table) 08/12/20 08/12/20 Range/Units 07:18 07:18 RBC 2.90 L (3.80-5.40) m/uL Hgb 8.7 L (11.4-16.0) gm/dL Hct 26.2 L (34.0-46.0) % Potassium 3.1 L (3.5-5.1) mmol/L Calcium 8.0 L (8.4-10.2) mg/dL Total Bilirubin <0.1 L (0.2-1.3) mg/dL Total Protein 5.5 L (6.3-8.2) g/dL Albumin 2.6 L (3.5-5.0) g/dL Microbiology - Last 24 Hours (Table) 08/10/20 14:29 Urine Culture - Final Urine,Clean Catch Assessment and Plan Assessment: recurrent presyncope Recurrent bronchial wall thickening with areas of mucus plugging, groundglass and reticular nodular opacities bilaterally. Correlate for acute infectious process. Areas of more nodular consolidation or nodularity Hypertension Hyperlipidemia History of GERD History of TIA Chronic low back pain History of urinary incontinence Plan: This is a pleasant 89 years old female who presents with recurrent presyncope. we are going to consult neurology in view of history of TIA,check carotid Dopplers, check hemoglobin A1c, vitamin B12 and third function test. Consult neurology service given her history of TIA and current presyncope. No need to repeat CT of the brain as it was done recently. Cardiology input is appreciated, no further workup. Also we'll consult pulmonary service for abnormal CT with nodularity and possible infection. Check C-reactive protein and procalcitonin discontinue Labs and medication were reviewed.. Continue same treatment. Continue with symptomatic treatment. Resume home medication. Monitor lytes and vitals. DVT and GI prophylaxis. Further recommendationsas per clinical course of the patient DVT prophylaxis: Subcutaneous heparin GI Prophylaxis: Pepcid PT/OT: Pending Prognosis is guarded
[2020-08-12] MEDS: FAMOTIDINE 20 MG/2 ML VIAL IV SCH (17:01)
[2020-08-12] MEDS: ATORVASTATIN 10 MG TAB PO SCH (20:12)
[2020-08-12] MEDS: HEPARIN SODIUM,PORCINE/PF 5,000 UNIT/0.5 ML SYRINGE SQ SCH (20:13)
[2020-08-12] MEDS: EZETIMIBE 10 MG TAB PO SCH (20:15)
[2020-08-12] MEDS: LORazepam 1 MG TAB PO PRN (20:47)
--- NOTE | 2020-08-12 22:18 | US ---
EXAMINATION TYPE: US carotid duplex BILAT DATE OF EXAM: 08/12/2020 COMPARISON: NONE CLINICAL HISTORY: possible tia. near syncope, no stroke history EXAM MEASUREMENTS: RIGHT: Peak Systolic Velocity (PSV) cm/sec ----- Right CCA: 85.2 ----- Right ICA: 87.5 ----- Right ECA: 108.4 ICA/CCA ratio: 1.0 RIGHT: End Diastole cm/sec ----- Right CCA: 12.8 ----- Right ICA: 17.2 ----- Right ECA: 12.8 LEFT: Peak Systolic Velocity (PSV) cm/sec ----- Left CCA: 78.8 ----- Left ICA: 89.2 ----- Left ECA: 123.3 ICA/CCA ratio: 1.1 LEFT: End Diastole cm/sec ----- Left CCA: 8.1 ----- Left ICA: 13.3 ----- Left ECA: 19.8 VERTEBRALS (direction of flow): Right Vertebral: Antegrade Left Vertebral: Antegrade Rhythm: Normal Mild heterogeneous plaque at bilateral bulbs, no significant stenosis seen. IMPRESSION: There is antegrade flow in the vertebral arteries. The images and measurements suggest 35% stenosis i n both internal carotid arteries. Criteria for Assigning % of Stenosis / Diameter reduction (Estimation based on the indirect measurements of the internal carotid artery velocities (ICA PSV). 1. Normal (no stenosis)=ICA PSV < 125 cm/s: ratio < 2.0: ICA EDV<40 cm/s. 2. Less than 50% stenosis=ICA PSV < 125 cm/s: ratio < 2.0: ICA EDV<40 cm/s. 3. 50 to 69% stenosis=ICA PSV of 125 to 230 cm/s: ration 2.0 ? 4.0: ICA EDV 40-100 cm/s. 4. Greater than 70% stenosis to near occlusion= ICA PSV > 230 cm/s: ratio > 4.0: ICA EDV > 100 cm/s. 5. Near occlusion= ICA PSV velocities may be low or undetectable: variable ratio and ICA EDV. 6. Total occlusion=unable to detect flow.
[2020-08-13] MEDS: carvediloL 12.5 MG TAB PO SCH ×2 (06:49→17:30)
[2020-08-13 07:41] LABS: Basophils # (A) 0.1 k/uL (0-0.2); Basophils % (A) 1 %; Eosinophils # (A) 0.4 k/uL (0-0.7); Eosinophils % (A) 6 %; HGB 8.9 gm/dL (11.4-16.0); Lymphocytes # (A) 1.3 k/uL (1.0-4.8); Lymphocytes % (A) 21 %; MCH 30.7 pg (25.0-35.0); MCHC 34.2 g/dL (31.0-37.0); MCV 89.7 fL (80.0-100.0); Mean Platelet Volume 7.1; Monocytes # (A) 0.5 k/uL (0-1.0); Monocytes % (A) 8 %; Neutrophils # (A) 3.8 k/uL (1.3-7.7); Neutrophils % (A) 63 %; Platelet Count 271 k/uL (150-450); RDW 14.2 % (11.5-15.5); WBC 6.1 k/uL (3.8-10.6)
[2020-08-13 07:58] LABS: African American GFR (CKD) 67 (>60 ml/min/1.73 sqM); Anion Gap 5 mmol/L; Blood Urea Nitrogen 8 mg/dL (7-17); C Reactive Protein 4.3 mg/dL (<1.0); Calcium 8.5 mg/dL (8.4-10.2); Carbon Dioxide 26 mmol/L (22-30); Chloride 106 mmol/L (98-107); Glucose 89 mg/dL (74-99); Magnesium 1.7 mg/dL (1.6-2.3); Non-African American GFR(CKD) 59 (>60 ml/min/1.73 sqM); Potassium 3.9 mmol/L (3.5-5.1); Sodium 137 mmol/L (137-145)
[2020-08-13 08:56] LABS: T4, Free (Free Thyroxine) 1.43 ng/dL (0.78-2.19)
[2020-08-13] MEDS: FUROSEMIDE 20 MG TAB PO SCH (08:58)
[2020-08-13] MEDS: FAMOTIDINE 20 MG/2 ML VIAL IV SCH (08:58)
[2020-08-13] MEDS: CALCIUM CARBONATE 500 MG CHEWABLE PO SCH (08:58)
[2020-08-13] MEDS: amLODIPine 10 MG TAB PO SCH (08:58)
[2020-08-13] MEDS: MULTIVITAMINS, THERA 1 EACH TAB PO SCH (08:58)
[2020-08-13] MEDS: ASPIRIN 81 MG PO SCH ×2 (08:58→20:18)
[2020-08-13] MEDS: cloNIDine HCL 0.1 MG TAB PO SCH ×2 (08:58→20:18)
[2020-08-13] MEDS: NIACIN TR 250 MG CAPSULE.ER PO SCH (08:59)
[2020-08-13] MEDS: ISOSORBIDE MONONITRATE ER 30 MG TAB.ER.24H PO SCH (08:59)
[2020-08-13] MEDS: HEPARIN SODIUM,PORCINE/PF 5,000 UNIT/0.5 ML SYRINGE SQ SCH ×2 (08:59→20:18)
[2020-08-13] MEDS: MECLIZINE 25 MG TAB PO SCH ×3 (08:59→20:18)
[2020-08-13] MEDS: CYANOCOBALAMIN 500 MCG TAB PO SCH (08:59)
[2020-08-13] MEDS: OFLOXACIN 0.3% OPHTH DROPS 5 ML BOTTLE RIGHT EYE SCH ×4 (09:00→20:17)
[2020-08-13] MEDS: PATIENT'S OWN (Mirabegron [Myrbetriq] 50 MG Tab.Er.24h) PO SCH (09:00)
[2020-08-13] MEDS: prednisoLONE ACETATE 1% OPHTH DROPS 5 ML BTL RIGHT EYE SCH ×4 (09:00→20:17)
--- NOTE | 2020-08-13 10:41 | P.CNPUL ---
History of Present Illness Consult date: 08/13/20 Reason for consult: dyspnea, cough, COPD, pneumonia Chief complaint: Near syncope History of present illness: This is a pleasant 89-year-old female who was seen eval reexamined in third floor, patient came into the hospital with the lightheadedness and dizziness, patient has been feeling very weak for the last several days, patient does have a history of multiple pneumonias episodes in the past with the last episode several months ago require hospitalization, patient has a several pneumonias as growing up, she used to smoke and quit smoking about 40 years ago, her prior history significant for CVA TIA and GERD hyperlipidemia hypertension hypertensive cardiovascular disease chronic back pain and urinary incontinence, chin has a recent retinal tear on the right eye has been passed, patient sees everton Chaudhary for primary care activity, her labs were unremarkable but however her computed tomography scan showed no pulmonary embolism but with bronchial wall thickening area of mucous plug and hazy infiltrate mostly on the right upper lobe, patient has extensive bronchiectasis of the bilateral upper lobes, patient will benefit from bronchoscopy for pulmonary toilet and airway cleaning as well as sampling of antibiotics likely patient is having a subtle pneumonia Review of Systems All systems: negative Past Medical History Past Medical History: Chest Pain / Angina, CVA/TIA, GERD/Reflux, Hyperlipidemia, Hypertension, Myocardial Infarction (OR), Pneumonia, Syncope Additional Past Medical History / Comment(s): Past syncopal episodes, TIAs, UTIs, DJD spin, chronic back pain, arthritis hands, diverticular disease.urinary incontinence- wears briefs Last Myocardial Infarction Date:: 11/16/2010 History of Any Multi-Drug Resistant Organisms: None Reported Past Surgical History: Adenoidectomy, Appendectomy, Back Surgery, Cholec ystectomy, Heart Catheterization, Hysterectomy, Tonsillectomy Additional Past Surgical History / Comment(s): cardiac caths in 2010 and 2013, back fusion/discectomy, colonoscopy, bilateral cataract removal with lens implants, Past Anesthesia/Blood Transfusion Reactions: Postoperative Nausea & Vomiting (PONV) Past Psychological History: Anxiety Additional Psychological History / Comment(s): takes ativan for anxiety Smoking Status: Never smoker Past Alcohol Use History: None Reported Additional Past Alcohol Use History / Comment(s): Pt states she started smoking in 1950 and quit in 1975. She will have an occasional glass of wine. Past Drug Use History: None Reported - Past Family History Father Additional Family Medical History / Comment(s): Father at the age of 57yrs with "heart problems". Mother Additional Family Medical History / Comment(s): Mother had an enlarged heart. She at the age of 79yrs. Medications and Allergies Home Medications Medication Instructions Recorded Confirmed Type Carvedilol 25 mg PO BID 12/18/13 08/10/20 History Isosorbide Mononitrate [Imdur] 30 mg PO DAILY 12/18/13 08/10/20 History Multivitamin/Iron/Folic Acid 1 tab PO DAILY 11/17/15 08/10/20 History [Centrum Complete Multivit Tab] Aspirin EC [Ecotrin Low Dose] 81 mg PO DAILY 09/16/18 08/10/20 History Ezetimibe [Zetia] 10 mg PO HS 12/26/18 08/10/20 History LORazepam [Ativan] 1 mg PO TID PRN 12/26/18 08/10/20 History Simvastatin [Zocor] 20 mg PO HS 12/26/18 08/10/20 History cloNIDine HCL [Catapres] 0.3 mg PO BID 12/26/18 08/10/20 History Nitroglycerin Sl Tabs [Nitrostat] 0.4 mg SL Q5M PRN 12/24/19 08/10/20 History amLODIPine [Norvasc] 10 mg PO DAILY #0 01/03/20 08/10/20 Rx Calcium Carbonate [Calcium] 600 mg PO DAILY 08/07/20 08/10/20 History Cyanocobalamin (Vitamin B-12) 1,000 mcg PO DAILY 08/07/20 08/10/20 History [Vitamin B-12] Furosemide [Lasix] 20 mg PO DAILY 08/07/20 08/10/20 History Meclizine [Antivert] 25 mg PO TID #20 tab 08/07/20 08/10/20 Rx Mirabegron [Myrbetriq] 50 mg PO DAILY 08/07/20 08/10/20 History Niacin 250 mg PO DAILY 08/07/20 08/10/20 History Ofloxacin 0.3% Ophth Soln [Ocuflox 1 drop RIGHT EYE QID 08/07/20 08/10/20 History Ophth Soln] prednisoLONE ACETATE 1% OPHTH 1 drop RIGHT EYE QID 08/07/20 08/10/20 History [Pred Forte 1%] Allergies Allergy/AdvReac Type Severity Reaction Status Date / Time oxycodone [From Percocet] Allergy Unknown Verified 08/10/20 17:05 codeine AdvReac Nausea & Verified 08/10/20 17:05 Vomiting meperidine HCl [From Demerol] AdvReac Nausea & Verified 08/10/20 17:05 Vomiting morphine AdvReac Nausea & Verified 08/10/20 17:05 Vomiting Physical Exam Vitals: Vital Signs Temp Pulse Resp BP BP BP BP 08/13/20 08:55 97.6 F 72 16 162/72 08/13/20 04:00 97.9 F 69 18 138/63 08/13/20 00:00 98.2 F 69 16 113/58 08/12/20 20:00 98.1 F 74 18 136/63 08/12/20 16:00 96.5 F L 75 18 121/74 08/12/20 12:00 66 18 109/53 Pulse Ox 08/13/20 08:55 96 08/13/20 04:00 100 08/13/20 00:00 94 L 08/12/20 20:00 96 08/12/20 16:00 95 08/12/20 12:00 96 Intake and Output 08/12/20 08/13/20 08/13/20 22:59 06:59 14:59 Intake Total 250 480 Balance 250 480 Intake: Oral 250 480 Other: Voiding Method Toilet Toilet Diaper Diaper Incontinent Incontinent # Voids 1 1 Weight 47.3 kg - Constitutional General appearance: average body habitus, cooperative, disheveled, mild distress - EENT Right eye covered with the patch Ears: bilateral: normal - Neck Carotids: bilateral: upstroke normal Thyroid: bilateral: normal size - Respiratory Respiratory: bilateral: diminished, wheezing - Cardiovascular Rhythm: regular Heart sounds: normal: S1, S2 - Gastrointestinal General gastrointestinal: normal bowel sounds, soft - Integumentary Integumentary: normal turgor - Neurologic Neurologic: CNII-XII intact - Musculoskeletal Musculoskeletal: gait normal, generalized weakness, strength equal bilaterally - Psychiatric Psychiatric: A&O x's 3, appropriate affect, intact judgment & insight Results - Laboratory Findings CBC and BMP: 08/13/20 06:54 08/13/20 06:54 PT/INR, D-dimer PT 10.8 sec (9.0-12.0) 08/10/20 14:29 INR 1.0 (<1.2) 08/10/20 14:29 D-Dimer 0.70 mg/L FEU (<0.60) H 08/11/20 09:27 Abnormal lab findings: Abnormal Labs 08/10/20 08/10/20 08/10/20 14:29 14:29 14:29 RBC 2.94 L Hgb 8.7 L Hct 26.2 L Neutrophils # 8.7 H D-Dimer Sodium 136 L Potassium Glucose 112 H Plasma Lactic Acid Romeo Calcium Magnesium 1.4 L Total Bilirubin C-Reactive Protein Total Protein 5.7 L Albumin 2.8 L TSH Urine Protein 2+ H Ur Leukocyte Esterase Small H Urine WBC 18 H Urine Mucus Rare H 08/10/20 08/11/20 08/12/20 14:29 09:27 07:18 RBC 2.90 L Hgb 8.7 L Hct 26.2 L Neutrophils # D-Dimer 0.70 H Sodium Potassium Glucose Plasma Lactic Acid Romeo 0.6 L Calcium Magnesium Total Bilirubin C-Reactive Protein Total Protein Albumin TSH Urine Protein Ur Leukocyte Esterase Urine WBC Urine Mucus 08/12/20 08/13/20 08/13/20 07:18 06:54 06:54 RBC 2.90 L Hgb 8.9 L Hct 26.0 L Neutrophils # D-Dimer Sodium Potassium 3.1 L Glucose Plasma Lactic Acid Romeo Calcium 8.0 L Magnesium Total Bilirubin <0.1 L C-Reactive Protein 4.3 H Total Protein 5.5 L Albumin 2.6 L TSH 5.760 H Urine Protein Ur Leukocyte Esterase Urine WBC Urine Mucus - Diagnostic Findings Chest x-ray: report reviewed, image reviewed Assessment and Plan Assessment: Right upper lobe pneumonia Right upper lobe nodule ill-defined Extensive upper lobe bronchiectasis with mucus plugging Near syncope Generalized weakness and medical debility Dyslipidemia Hypertension hypertensive cardiovascular disease History of multiple TIAs Plan: Broad-spectrum antibiotics Scheduled bronchoscopy BAL and possible biopsy for pulmonary toilet as well as airway cleaning Patient will benefit from vest therapy as outpatient Continue home medications Gentle rehydration Further plan of care as per clinical response of the patient Time with Patient: Greater than 30
--- NOTE | 2020-08-13 11:20 | P.PN ---
Subjective Progress Note Date: 08/13/20 HISTORY OF PRESENT ILLNESS: This is a pleasant 89-year-old female past medical history significant for tokotsubo cardiomyopathy 2010, hypertension, dyslipidemia, and TIAs and recent eye surgery. She follows in the office with Dr. Spaulding. We have been asked to see in consultation for syncope/dizziness. She presented to the hospital yesterday with symptoms of dizziness and near syncope. She states over the previous week this has happened on 3 separate occasions. It occurs while she is walking around her home she starts to feel a funny sensation in her head. She states it feels like she is floating and she knows she is going to fall if she doesn't get herself to the ground. All 3 times she has been able to hold onto the wall and lower herself to the ground. EMS came on the first occasion and she was told her blood pressure was moderately low however it did improve since she did not transport to the hospital. On the third occurrence yesterday EMS was again called and she was transported to the hospital. According to ER documentation on arrival to her home her blood pressure was 80/40. On arrival to the emergency department blood pressure was 117/85. On all three occasions she only feels symptoms of light headedness. No chest pain, shortness of breath, palpitations, nausea, vomiting or diaphoresis. For blood pressure management she takes amlodipine 10 mg daily, clonidine 0.3 mg twice a day, Coreg 25 mg twice a day and she is also on Imdur 30 mg daily. EMS documentation did mention her trailer home was extremely warm on arrival. The patient states she is under a significant amount of stress. Her is in a halfway with a poor prognosis and her daughter is currently battling breast cancer. She is currently wearing a patch over the right eye. She states she had surgery for a partially detached retina 3 weeks ago. DIAGNOSTICS EKG reveals sinus mechanism heart rate of 63. Telemetry tracings indicate distant sinus mechanism with no acute arrhythmia or pauses. Chest xray treated for an acute cardiopulmonary process. Laboratory reviewed, WBC 10.6, hemoglobin 8.7, platelets 276, sodium 136, potassium 3.5, creatinine 0.81, magnesium 1.4, troponin negative x1. She underwent a Lexiscan stress test and echocardiogram in December of last year. Lexiscan was negative for reversible cardiac ischemia and echocardiogram revea led preserved LV systolic function with ejection fraction 55-60%, mild aortic stenosis with a mean gradient of 12 mmHg, mild MR and mild TR. Most recent cardiac catheterization performed in 2013 revealed left main no evidence of stenosis, LAD 20-30% disease in the proximal to mid portion, circumflex no significant disease, RCA no significant disease. 08/12/2020 Patient examined this morning at the bedside. Patient denies chest pain or pressure. She denies shortness of breath. She denies dizziness or lightheadedness. No further episodes of near syncope. Telemetry did not reveal any arrhythmias or significant bradycardia. Orthostatic blood pressures were unremarkable. Echocardiogram completed revealed ejection fraction 60-65%, mild aortic stenosis, trace to mild mitral regurgitation, mild tricuspid regurgitation, and mild pulmonary hypertension. D-dimer mildly abnormal at 0.70. 08/13/2020 Patient examined this morning at the bedside. Patient denies chest pain or pressure. She denies shortness of breath. She denies dizziness or lightheadedness. No further episodes of near syncope. Telemetry did not reveal any arrhythmias or significant bradycardia. Patient underwent CT angios the chest which was negative for pulmonary embolism. PHYSICAL EXAM: VITAL SIGNS: Reviewed. GENERAL: Well-developed in no acute distress. NECK: Supple. No JVD or thyromegaly LUNGS: Respirations even and unlabored. Lungs essentially clear to auscultation bilaterally. HEART: Regular rate and rhythm. S1 and S2 heard. EXTREMITIES: Normal range of motion. No clubbing or cyanosis. Peripheral pulses intact. No lower extremity edema ASSESSMENT: Near syncope Hypomagnesemia, resolved History of Takotsubo Hypertension Dyslipidemia Recent eye surgery for partially detached retina PLAN: Continue current cardiac medications Continue telemetry monitoring Patient is currently stable from a cardiac standpoint We will follow on an as needed basis. Please call with questions Patient to follow up outpatient with Dr. Spaulding Nurse practitioner note has been reviewed by physician. Signing provider agrees with the documented findings, assessment, and plan of care. Objective - Vital Signs Vital signs: Vital Signs Temp 97.6 F 08/13/20 08:55 Pulse 72 08/13/20 08:55 Resp 16 08/13/20 08:55 BP 162/72 08/13/20 08:55 Pulse Ox 96 08/13/20 08:55 Intake & Output 05/08/13/20 08/13/20 18:59 06:59 18:59 Intake Total 980 480 Balance 980 480 Weight 47.3 kg Intake: Oral 980 480 Other: Voiding Method Toilet Toilet Toilet Diaper Diaper Diaper Incontinent Incontinent Incontinent # Voids 4 1 - Labs CBC & Chem 7: 08/13/20 06:54 08/13/20 06:54 Labs: Abnormal Lab Results - Last 24 Hours (Table) 08/13/20 08/13/20 Range/Units 06:54 06:54 RBC 2.90 L (3.80-5.40) m/uL Hgb 8.9 L (11.4-16.0) gm/dL Hct 26.0 L (34.0-46.0) % C-Reactive Protein 4.3 H (<1.0) mg/dL TSH 5.760 H (0.465-4.680) mIU/L
[2020-08-13] MEDS: DOXYCYCLINE 100 MG CAP PO SCH ×2 (12:17→20:18)
[2020-08-13 12:32] LABS: Vitamin B12 >4000.0 pg/mL (211-911)
--- NOTE | 2020-08-13 14:40 | P.PN ---
Subjective This is a pleasant 89 years old female with past medical history of CVA/TIA, GERD, hyperlipidemia, hypertension, syncopal episode and TIAs, chronic back pain, urinary incontinence. Presents to the hospital because of recurrent near syncope episodes and lightheadedness. Patient recently had right eye surgery about 2 weeks ago for retinal tear, her identity management developer is at [place], right eye is currently covered with a pack with no complaints of pain or anything by the patient. Patient follow up with Dr. Chaudhary. Patient states that she was walking between her problems when she felt dizzy and was going to fall had to hold down for that reason. And this happened for her 3 times within one week, she never passed out, however she remained on the floor for 15-20 minutes total somebody came and helped her up. No loss of consciousness. Vitals are stable and orthostatic vitals are negative. Labs including CBC, BMP, liver enzymes, INR, urinalysis are unremarkable. D- dimer is elevated at 0.7, CTA of the chest showing no PE. Urine analysis is not suspicious for infection. Echo: Ejection fraction of 60-65% with no significant valvular heart disease Chest x-ray chronic bronchitis Patient never smoked before however she drinks glass of wine almost every day. No illicit drugs CTA of the chest: No PE. Recurrent bronchial wall thickening with areas of mucus plugging, groundglass and reticular nodular opacities bilaterally. Correlate for acute infectious process. Areas of more nodular consolidation or nodularity noted on current study are new from prior computed tomography scan. Short-term follow-up CT advised to reassess Doppler of the lower extremity is negative for DVT last month. CT of the brain earlier this month showing no acute abnormality. Patient currently On normal sinus at 80 mL per hour 08/13/2020 Patient sitting in chair, with no respiratory symptoms, no chest pain, no diarrhea or abdominal pain. No other complaints. Patient states that she wants to be discharged because her is dying at [facility] and she wants to visit him however she agrees to stay in the hospital today. CTA of the chest was negative for PE for elevated d-dimer. However shows evidence of mucus plugging and bronchial thickening with a groundglass and reticular nodular opacities on both sides suspicious for bronchiectasis. Discussed the case with the pulmonary service for recommended treatment for pneumonia and possible bronchoscopy for toilet Neuro consult for recurrent presyncope. Aspirin is increased twice daily. That she is hemodynamically is stable labs look fine. She is currently on ceftriaxone, doxycycline, aspirin 81 mg twice a day, subcutaneous heparin and normal saline at 50 mL per hour Cardiology service signed off Objective - Vital Signs Vital signs: Vital Signs Temp 97.6 F 08/13/20 08:55 Pulse 65 08/13/20 11:40 Resp 16 08/13/20 13:30 BP 140/64 08/13/20 11:40 Pulse Ox 92 L 08/13/20 11:40 Intake & Output 08/12/20 08/13/20 08/13/20 18:59 06:59 18:59 Intake Total 980 480 Balance 980 480 Weight 47.3 kg Intake: Oral 980 480 Other: Voiding Method Toilet Toilet Toilet Diaper Diaper Diaper Incontinent Incontinent Incontinent # Voids 4 1 - Exam GENERAL: The patient is alert and oriented x3, not in any acute distress. Well developed, well nourished. HEENT: Pupils are round and equally reacting to light. EOMI. No scleral icterus. No conjunctival pallor. Normocephalic, atraumatic. No pharyngeal erythema. No thyromegaly. CARDIOVASCULAR: S1 and S2 present. No murmurs, rubs, or gallops. PULMONARY: Chest is clear to auscultation, no wheezing or crackles. ABDOMEN: Soft, nontender, nondistended, normoactive bowel sounds. No palpable or ganomegaly. MUSCULOSKELETAL: No joint swelling or deformity. EXTREMITIES: No cyanosis, clubbing, or pedal edema. NEUROLOGICAL: Gross neurological examination did not reveal any focal deficits. SKIN: No rashes. no petechiae. - Labs CBC & Chem 7: 08/13/20 06:54 08/13/20 06:54 Labs: Abnormal Lab Results - Last 24 Hours (Table) 08/13/20 08/13/20 Range/Units 06:54 06:54 RBC 2.90 L (3.80-5.40) m/uL Hgb 8.9 L (11.4-16.0) gm/dL Hct 26.0 L (34.0-46.0) % C-Reactive Protein 4.3 H (<1.0) mg/dL Vitamin B12 >4000.0 H (211-911) pg/mL TSH 5.760 H (0.465-4.680) mIU/L Assessment and Plan Assessment: recurrent presyncope Possible pneumonia, possible bronchiectasis: bronchial wall thickening with areas of mucus plugging, groundglass and reticular nodular opacities bilaterally. Correlate for acute infectious process. Areas of more nodular con solidation or nodularity Hypertension Hyperlipidemia History of GERD History of TIA Chronic low back pain History of urinary incontinence Plan: This is a pleasant 89 years old female who presents with recurrent presyncope. we are going to consult neurology in view of history of TIA, Consult neurology service given her history of TIA and current presyncope. No need to repeat CT of the brain as it was done recently. Cardiology input is appreciated, no further workup. Continue with antibiotic, follow-up with pulmonary service for possible bronchoscopy Labs and medication were reviewed.. Continue same treatment. Continue with symptomatic treatment. Resume home medication. Monitor lytes and vitals. DVT and GI prophylaxis. Further recommendationsas per clinical course of the patient DVT prophylaxis: Subcutaneous heparin GI Prophylaxis: Pepcid PT/OT: Pending Prognosis is guarded
[2020-08-13 14:45] LABS: Hemoglobin A1C 6.3 % (4.0-6.0)
--- NOTE | 2020-08-13 19:02 | P.CNNES ---
History of Present Illness Consult date: 08/13/20 Requesting physician: Lloyd E Luke Reason for Consult: Recurrent syncope, history of TIA History of Present Illness: This is a tele-neurology consultation performed today on 08/13/2020. Patient is a 89-year-old female came to the hospital by ambulance on 08/10/2020 at 12:47 PM for recurrent syncopal spells. Patient states that he got real funny in his head, felt strange feeling like will fall. She grabs something and then goes down, did not pass out. It happened 3 times in 1 week prior to arrival. She did not pass out. As per EMS flow sheet when they arrived patient was alert and oriented 4, sitting in the chair, complained of a near syncopal episode and severe weakness, dizziness when standing. Initial blood pressure was 80/40 and patient was very pale. Family has mentioned that patient had multiple episodes recently and was given Antivert by [facility] due to possible vertigo. Patient appeared to be orthostatic and was unable to remain standing long enough to obtain a blood pressure without being held up by the EMS personnel. Her pupils were equal and reacting. Blood glucose was 203. Patient did not have any difficulty breathing, abdominal pain nausea vomiting. No headache dizziness. No focal deficits noted. Patient's blood pressure at the scene was 93/50, pulse rate 67 saturation 95%. Vital signs on arrival was blood pressure 117/85. Patient had undergone orthostatics, in which her supine blood pressure is 156/63, sitting was 161/69 and standing 169/63, negative orthostatics. Patient had another set of orthostatics which also came back negative. At present patient states he is doing better. All symptoms have resolved. Neurology was consulted for history of TIA. Patient says that he had a TIA 20 years ago. She started taking aspirin 81 mg twice a day and never had any further TIA. About a year ago, she had a spell in which she had whole body feeling full of electricity. This sensation lasted for 2 seconds and was gone. She was not confused or disoriented. I do not believe this was a seizure or a TIA. Patient's carotid Doppler, 2-D echo and CTA was reviewed. Lower extremity Doppler negative for DVT. Patient's blood test shows normal WBC hemoglobin 8.7, platelets are 276. PT/PTT normal. Sodium 136 potassium 3.5, normal renal functions. Normal hepatic panel. Troponin negative. UA negative. Feldman virus PCR negative. Patient's TSH is slightly elevated 5.76, with normal free T4, 1.43. Patient has been diagnosed with pneumonia, currently on Rocephin 1 g every 24 hours. Review of Systems As mentioned above in HPI. All other review of systems unremarkable except as per HPI. All 14 point of review systems are reviewed and noncontributory. Past Medical History Past Medical History: Chest Pain / Angina, CVA/TIA, GERD/Reflux, Hyperlipidemia, Hypertension, Myocardial Infarction (AR), Pneumonia, Syncope Additional Past Medical History / Comment(s): Past syncopal episodes, TIAs, UTIs, DJD spin, chronic back pain, arthritis hands, diverticular disease.urinary incontinence- wears briefs Last Myocardial Infarction Date:: 11/16/2010 History of Any Multi-Drug Resistant Organisms: None Reported Past Surgical History: Adenoidectomy, Appendectomy, Back Surgery, Cholecystectomy, Heart Catheterization, Hysterectomy, Tonsillectomy Additional Past Surgical History / Comment(s): cardiac caths in 2010 and 2013, back fusion/discectomy, colonoscopy, bilateral cataract removal with lens implants, Past Anesthesia/Blood Transfusion Reactions: Postoperative Nausea & Vomiting (PONV) Past Psychological History: Anxiety Additional Psychological History / Comment(s): takes ativan for anxiety Smoking Status: Never smoker Past Alcohol Use History: None Reported Additional Past Alcohol Use History / Comment(s): Pt states she started smoking in 1950 and quit in 1975. She will have an occasional glass of wine. Past Drug Use History: None Reported - Past Family History Father Additional Family Medical History / Comment(s): Father at the age of 57yrs with "heart problems". Mother Additional Family Medical History / Comment(s): Mother had an enlarged heart. She at the age of 79yrs. Medications and Allergies Home Medications Medication Instructions Recorded Confirmed Type Carvedilol 25 mg PO BID 12/18/13 08/10/20 History Isosorbide Mononitrate [Imdur] 30 mg PO DAILY 12/18/13 08/10/20 History Multivitamin/Iron/Folic Acid 1 tab PO DAILY 11/17/15 08/10/20 History [Centrum Complete Multivit Tab] Aspirin EC [Ecotrin Low Dose] 81 mg PO DAILY 09/16/18 08/10/20 History Ezetimibe [Zetia] 10 mg PO HS 12/26/18 08/10/20 History LORazepam [Ativan] 1 mg PO TID PRN 12/26/18 08/10/20 History Simvastatin [Zocor] 20 mg PO HS 12/26/18 08/10/20 History cloNIDine HCL [Catapres] 0.3 mg PO BID 12/26/18 08/10/20 History Nitroglycerin Sl Tabs [Nitrostat] 0.4 mg SL Q5M PRN 12/24/19 08/10/20 History amLODIPine [Norvasc] 10 mg PO DAILY #0 01/03/20 08/10/20 Rx Calcium Carbonate [Calcium] 600 mg PO DAILY 08/07/20 08/10/20 History Cyanocobalamin (Vitamin B-12) 1,000 mcg PO DAILY 08/07/20 08/10/20 History [Vitamin B-12] Furosemide [Lasix] 20 mg PO DAILY 08/07/20 08/10/20 History Meclizine [Antivert] 25 mg PO TID #20 tab 08/07/20 08/10/20 Rx Mirabegron [Myrbetriq] 50 mg PO DAILY 08/07/20 08/10/20 History Niacin 250 mg PO DAILY 08/07/20 08/10/20 History Ofloxacin 0.3% Ophth Soln [Ocuflox 1 drop RIGHT EYE QID 08/07/20 08/10/20 History Ophth Soln] prednisoLONE ACETATE 1% OPHTH 1 drop RIGHT EYE QID 08/07/20 08/10/20 History [Pred Forte 1%] Allergies Allergy/AdvReac Type Severity Reaction Status Date / Time oxycodone [From Percocet] Allergy Unknown Verified 08/10/20 17:05 codeine AdvReac Nausea & Verified 08/10/20 17:05 Vomiting meperidine HCl [From Demerol] AdvReac Nausea & Verified 08/10/20 17:05 Vomiting morphine AdvReac Nausea & Verified 08/10/20 17:05 Vomiting Physical Examination - Vital Signs Vital Signs: Vital Signs Temp Pulse Pulse Resp BP BP BP 08/13/20 11:40 65 16 140/64 08/13/20 08:55 97.6 F 72 16 162/72 08/13/20 04:00 97.9 F 69 18 138/63 08/13/20 00:00 98.2 F 69 16 113/58 08/12/20 20:00 98.1 F 74 18 136/63 08/12/20 16:00 96.5 F L 75 18 121/74 Pulse Ox 08/13/20 11:40 92 L 08/13/20 08:55 96 08/13/20 04:00 100 08/13/20 00:00 94 L 08/12/20 20:00 96 08/12/20 16:00 95 Intake and Output 08/12/20 08/13/20 08/13/20 22:59 06:59 14:59 Intake Total 250 480 Balance 250 480 Intake: Oral 250 480 Other: Voiding Method Toilet Toilet Toilet Diaper Diaper Diaper Incontinent Incontinent Incontinent # Voids 1 1 Weight 47.3 kg Patient is an elderly female, in no acute distress. Patient is alert awake oriented to time place and person. Patient knows it is July 2020 and that she is in [facility]. She knows she is in [facility]. Speech and language functions are normal. Attention, concentration and fund of knowledge is adequate. Patient had recent right eye surgery, therefore she has a patch on the right eye. On cranial examination, the left pupil pupils is round and reacting to light, visual bang are full on confrontation, extraocular muscles are intact with no nystagmus. Face is symmetric, tongue protrudes to the midline. Palatal elevation and sensation normal, hearing and shoulder shrug normal, facial sensation normal. Shoulder shrug normal. On muscle strength testing, there is no pronator drift and the strength is normal in arms and legs distally and proximally. Deep tendon reflexes are symmetric, 2 all over and plantars downgoing. Sensory to touch is equal with no neglect. Cerebellar function showed no ataxia for ilkerr-gv-hstb testing. No dysdiadochokinesia. Tone and bulk of muscles normal. Gait normal. On general examination, there is no carotid bruit or murmur, S1-S2 audible. Abdomen is soft nontender. Chest is clear. Peripheral pulses are present. No edema. Results - Laboratory Findings CBC and BMP: 08/13/20 06:54 08/13/20 06:54 Abnormal Lab Findings: Abnormal Labs 08/10/20 08/10/20 08/10/20 14:29 14:29 14:29 RBC 2.94 L Hgb 8.7 L Hct 26.2 L Neutrophils # 8.7 H D-Dimer Sodium 136 L Potassium Glucose 112 H Plasma Lactic Acid Romeo Calcium Magnesium 1.4 L Total Bilirubin C-Reactive Protein Total Protein 5.7 L Albumin 2.8 L TSH Urine Protein 2+ H Ur Leukocyte Esterase Small H Urine WBC 18 H Urine Mucus Rare H 08/10/20 08/11/20 08/12/20 14:29 09:27 07:18 RBC 2.90 L Hgb 8.7 L Hct 26.2 L Neutrophils # D-Dimer 0.70 H Sodium Potassium Glucose Plasma Lactic Acid Romeo 0.6 L Calcium Magnesium Total Bilirubin C-Reactive Protein Total Protein Albumin TSH Urine Protein Ur Leukocyte Esterase Urine WBC Urine Mucus 08/12/20 08/13/20 08/13/20 07:18 06:54 06:54 RBC 2.90 L Hgb 8.9 L Hct 26.0 L Neutrophils # D-Dimer Sodium Potassium 3.1 L Glucose Plasma Lactic Acid Romeo Calcium 8.0 L Magnesium Total Bilirubin <0.1 L C-Reactive Protein 4.3 H Total Protein 5.5 L Albumin 2.6 L TSH 5.760 H Urine Protein Ur Leukocyte Esterase Urine WBC Urine Mucus Assessment and Plan Assessment: * Recurrent syncopal spells, likely due to acute pneumonia, orthostasis and probable near syncopal spells. Patient symptoms have all resolved since she has been treated in the hospital. * History of TIA 20 years ago. Stable on aspirin 81 mg twice a day. * DJD. Plan: * Patient's near syncopal spells was likely secondary to acute pneumonia, dehydration, orthostasis. Her symptoms have resolved. All neurological workup has been performed as listed below. * We will increase aspirin back to her baseline 81 mg twice a day. Continue Lipitor 10 mg at bedtime. * Carotid Doppler from 08/12/2020 showed antegrade flow in both vertebral arteries. There is 35% stenosis in both ICA. * 2-D echo shows normal left-ventricular size, borderline concentric LVH, EF is 60-65%. Mild aortic valve sclerosis, stenosis and aortic regurgitation. * CTA of the chest negative for pulmonary embolism. No dissection. Mild to moderate mixed plaque in the arch and descending aorta. Pulmonary hypertension. Scoliosis. * Computed tomography scan of head without contrast from 08/07/2020 showed no acute intracranial process. Mild diffuse cerebral atrophy and [id number]-hqtgulrd chronic small vessel ischemic change. * Vitamin B12 >4000. TSH is mildly elevated 5.76/4.68, free T4 normal 1.43. * Dr. Jamari Hoffman Will resume neurology service in a.m.
[2020-08-13] MEDS: SODIUM CHLORIDE 0.9% 1,000 ML IV SCH (20:12)
[2020-08-13] MEDS: EZETIMIBE 10 MG TAB PO SCH (20:17)
[2020-08-13] MEDS: ATORVASTATIN 10 MG TAB PO SCH (20:18)
[2020-08-13] MEDS: LORazepam 1 MG TAB PO PRN (21:56)
--- NOTE | 2020-08-14 08:26 | P.PN ---
Subjective Principal diagnosis: Respiratory distress. The patient is an 89-year-old white female with history of COPD who is now admitted for altered mental status and weakness dehydration. The patient is feeling much better and we will go ahead and await bronchoscopy today. Objective - Vital Signs Vital signs: Vital Signs Temp 97.7 F 08/14/20 03:31 Pulse 75 08/14/20 03:31 Resp 16 08/14/20 03:31 BP 132/86 08/14/20 03:31 Pulse Ox 95 08/14/20 03:31 Intake & Output 08/13/20 08/14/20 08/14/20 18:59 06:59 18:59 Intake Total 980 Output Total 350 400 Balance 630 -400 Weight 46.4 kg Intake: Oral 980 Output: Urine 350 400 Other: Voiding Method Toilet Toilet Diaper Diaper Incontinent Incontinent # Voids 1 - Constitutional General appearance: Present: cooperative, no acute distress - EENT Eyes: Absent: abnormal pupil - Neck Neck: Absent: lymphadenopathy - Respiratory Respiratory: bilateral: diminished - Cardiovascular Rhythm: regular Heart sounds: normal: S1, S2 Abnormal Heart Sounds: Absent: S3 Gallop - Gastrointestinal General gastrointestinal: Present: soft. Absent: tenderness - Psychiatric Psychiatric: Present: A&O x's 3. Absent: appropriate affect - Labs CBC & Chem 7: 08/13/20 06:54 08/13/20 06:54 Labs: Abnormal Lab Results - Last 24 Hours (Table) 08/13/20 08/13/20 Range/Units 06:54 06:54 Hemoglobin A1c 6.3 H (4.0-6.0) % C-Reactive Protein 4.3 H (<1.0) mg/dL Vitamin B12 >4000.0 H (211-911) pg/mL TSH 5.760 H (0.465-4.680) mIU/L Assessment and Plan (1) Dehydration Current Visit: Yes Status: Acute Code(s): E86.0 - DEHYDRATION SNOMED Code(s): 10432786 (2) Hypomagnesemia Current Visit: Yes Status: Acute Code(s): E83.42 - HYPOMAGNESEMIA SNOMED Code(s): 090116106 (3) Syncope due to orthostatic hypotension Current Visit: Yes Status: Acute Code(s): I95.1 - ORTHOSTATIC HYPOTENSION SNOMED Code(s): 296139907 (4) At risk for readmission to hospital Current Visit: No Status: Acute Code(s): Z91.89 - OTH PERSONAL RISK FACTORS, NOT ELSEWHERE CLASSIFIED SNOMED Code(s): 6177861713342 (5) HTN (hypertension) Current Visit: No Status: Acute Code(s): I10 - ESSENTIAL (PRIMARY) HYPERTENSION SNOMED Code(s): 29252371 (6) Near syncope Current Visit: No Status: Acute Code(s): R55 - SYNCOPE AND COLLAPSE SNOMED Code(s): 930370084 Plan: Dehydration is resolved. Await pulmonology bronchoscopy today. Check CBC and CMP in a.m.
[2020-08-14] MEDS: MULTIVITAMINS, THERA 1 EACH TAB PO SCH (08:57)
[2020-08-14] MEDS: prednisoLONE ACETATE 1% OPHTH DROPS 5 ML BTL RIGHT EYE SCH ×4 (08:57→19:45)
[2020-08-14] MEDS: PATIENT'S OWN (Mirabegron [Myrbetriq] 50 MG Tab.Er.24h) PO SCH (08:57)
[2020-08-14] MEDS: OFLOXACIN 0.3% OPHTH DROPS 5 ML BOTTLE RIGHT EYE SCH ×4 (08:57→19:45)
[2020-08-14] MEDS: CYANOCOBALAMIN 500 MCG TAB PO SCH (09:00)
[2020-08-14] MEDS: carvediloL 12.5 MG TAB PO SCH ×2 (09:06→17:14)
[2020-08-14] MEDS: amLODIPine 10 MG TAB PO SCH (09:06)
[2020-08-14] MEDS: FAMOTIDINE 20 MG TAB PO SCH (09:06)
[2020-08-14] MEDS: ASPIRIN 81 MG PO SCH ×2 (09:06→19:51)
[2020-08-14] MEDS: cloNIDine HCL 0.1 MG TAB PO SCH ×2 (09:06→19:51)
[2020-08-14] MEDS: ISOSORBIDE MONONITRATE ER 30 MG TAB.ER.24H PO SCH (09:06)
[2020-08-14] MEDS: HEPARIN SODIUM,PORCINE/PF 5,000 UNIT/0.5 ML SYRINGE SQ SCH ×2 (09:06→19:51)
--- NOTE | 2020-08-14 11:21 | P.PN ---
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 08/14/2020, patient seen eval examined during the rounds labs reviewed medications reviewed care plan discussed, patient feeling slightly dizzy patient is due for her and the word, we'll give it with a sip of water, patient is currently nothing by mouth as well will put patient on IV fluids D5 normal saline 75 mL an hour, procedure explained to the patient as well as the daughter plan for bronchoscopy later on today for pulmonary toilet suctioning and samples This is a pleasant 89-year-old female who was seen eval reexamined in third floor, patient came into the hospital with the lightheadedness and dizziness, patient has been feeling very weak for the last several days, patient does have a history of multiple pneumonias episodes in the past with the last episode several months ago require hospitalization, patient has a several pneumonias as growing up, she used to smoke and quit smoking about 40 years ago, her prior history significant for CVA TIA and GERD hyperlipidemia hypertension hypertensive cardiovascular disease chronic back pain and urinary incontinence, chin has a recent retinal tear on the right eye has been passed, patient sees everton Chaudhary for primary care activity, her labs were unremarkable but however her computed tomography scan showed no pulmonary embolism but with bronchial wall thickening area of mucous plug and hazy infiltrate mostly on the right upper lobe, patient has extensive bronchiectasis of the bilateral upper lobes, patient will benefit from bronchoscopy for pulmonary toilet and airway cleaning as well as sampling of antibiotics likely patient is having a subtle pneumonia Objective - Vital Signs Vital signs: Vital Signs Temp 98.2 F 08/14/20 08:00 Pulse 77 08/14/20 08:00 Resp 18 08/14/20 08:00 BP 172/73 08/14/20 08:00 Pulse Ox 98 08/14/20 08:00 Intake & Output 08/13/20 08/14/20 08/14/20 18:59 06:59 18:59 Intake Total 980 Output Total 350 400 200 Balance 630 -400 -200 Weight 46.4 kg Intake: Oral 980 Output: Urine 350 400 200 Other: Voiding Method Toilet Toilet Diaper Diaper Incontinent Incontinent # Voids 1 - Exam - Constitutional General appearance: average body habitus, cooperative, disheveled, mild distress - EENT Right eye covered with the patch Ears: bilateral: normal - Neck Carotids: bilateral: upstroke normal Thyroid: bilateral: normal size - Respiratory Respiratory: bilateral: diminished, wheezing - Cardiovascular Rhythm: regular Heart sounds: normal: S1, S2 - Gastrointestinal General gastrointestinal: normal bowel sounds, soft - Integumentary Integumentary: normal turgor - Neurologic Neurologic: CNII-XII intact - Musculoskeletal Musculoskeletal: gait normal, generalized weakness, strength equal bilaterally - Psychiatric Psychiatric: A&O x's 3, appropriate affect, intact judgment & insight - Labs CBC & Chem 7: 08/13/20 06:54 08/13/20 06:54 Labs: Abnormal Lab Results - Last 24 Hours (Table) 08/13/20 08/13/20 Range/Units 06:54 06:54 Hemoglobin A1c 6.3 H (4.0-6.0) % Vitamin B12 >4000.0 H (211-911) pg/mL Assessment and Plan Assessment: Right upper lobe pneumonia Right upper lobe nodule ill-defined Extensive upper lobe bronchiectasis with mucus plugging Near syncope Generalized weakness and medical debility Dyslipidemia Hypertension 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
[2020-08-14] MEDS: NIACIN TR 250 MG CAPSULE.ER PO SCH (11:40)
[2020-08-14] MEDS: DOXYCYCLINE 100 MG CAP PO SCH ×2 (11:40→19:52)
[2020-08-14] MEDS: FUROSEMIDE 20 MG TAB PO SCH (11:40)
[2020-08-14] MEDS: MECLIZINE 25 MG TAB PO SCH ×3 (11:50→19:51)
[2020-08-14] MEDS: SODIUM CHLORIDE 0.9% 1,000 ML IV SCH (11:57)
--- NOTE | 2020-08-14 14:14 | CDI ---
Documentation Clarification Form Date: 08/14/2020 01:50:33 PM From: Daina Elder RN CCDS Admit Date: 08/10/2020 05:12:00 PM Patient Name: Oumou Mazariegos Visit Number: [id number] Discharge Date: ATTENTION: The Clinical Documentation Specialists (CDI) and [facility] Coding Staff appreciate your assistance in clarifying documentation. Please respond to the clarification below the line at the bottom and electronically sign. The CDI & [facility] Coding staff will review the response and follow-up if needed. Please note: Queries are made part of the Legal Health Record. If you have any questions, please contact the author of this message via ITS. Dr. Uri Chaudhary Conflicting documentation has been found in the medical record. As attending physician, please provide clarification. Syncope due to orthostatic hypotension. H&P 08/11 Recurrent syncopal spells, likely due to acute pneumonia, orthostasis and probable near syncopal spells. 08/13 Neurology consult 08/13 History/Risk Factors: 89-year-old female presents to the ED for syncopal episodes at home. Medical History: Chest pain, Angina, CVA, HTN and SC Clinical Indicators: VSS 08/10: B/P 117/85; HR 62; Temp 97.5 F Oral; RR 16; SpO2 94% room air. CXR 08/10: Interstitial changes within the lungs are again noted, prominent lung volumes may be indicative of underlying COPD. Apical pleural thickening, scarring is again noted, there may be chronic mucus plugging, there is bronchial wall thickening. Treatment: 08/10: Coreg 25mg po bid; 08/10 0.3mg po bid; 08/10 Imdur 30mg po daily; 08/10 0.9ns 500cc bolus x1; 08/11 Norvasc 10mg po daily; Lasix 20mg po daily. Please clarify which diagnosis is most appropriate: [ ] Syncopal spells due to acute pneumonia [ x ] Syncopal spells due to orthostatic hypotension [ ] Other (please specify) [ ] Unable to determine (Template Last Revised: May 2020) MTDD
[2020-08-14] MEDS: DEXTROSE 5%-0.9% NACL 1,000 ML IV SCH ×2 (14:21→23:35)
[2020-08-14] MEDS ORDERED: LIDOCAINE 1% INJ 10MG/ML (20 ML MDV) ONE (15:10)
[2020-08-14] MEDS ORDERED: PROPOFOL 10 MG/ML 20 ML VIAL IV ONE (15:10)
[2020-08-14] MEDS ORDERED: LIDOCAINE 2% INJ 20 MG/ML INTRATRACH ONE (15:18)
[2020-08-14] MEDS ORDERED: IV FLUID CONTINUATION 900 ML IV ONE (15:26)
--- NOTE | 2020-08-14 15:28 | P.PCN ---
Date of Procedure: 08/14/20 Preoperative Diagnosis: Lingular lobe pneumonia, bilateral upper lobe bronchiectasis Postoperative Diagnosis: As above Procedure(s) Performed: #1 bronchoscopy, #2 bronchoalveolar lavage of right upper lobe, left upper lobe, lingula lobe, left lower lobe Anesthesia: MAC Surgeon: Osmany Ali Condition: stable Disposition: floor Indications for Procedure: As above Operative Findings: As below Description of Procedure: Fiberoptic bronchoscope was passed through the right nares, laryngeal area was approached, vocal cords were normal structure and function, tip of the scope was passed through the vocal cords into the trachea extensive amount of purulent mucous plug was noted bilaterally, they were suctioned clean, subsequently the scope was advanced on the right side right upper lobe middle lobe and lower lobe inspected extensive amount of mucus plugging again with purulent discoloration noted BAL was performed from the right upper lobe, the scope was advanced to the left side left upper lobe lingula lobe and left lower lobe subsegment was inspected BAL was performed followed by suctioning and cleaning of the airways a lot of mucous plugs were removed patient tolerated procedure well no complication noted
[2020-08-14] MEDS: NYSTATIN 100,000 UNIT/ML SUSP 500,000 UNIT/5 ML CUP PO SCH ×2 (19:50→23:22)
[2020-08-14] MEDS: ATORVASTATIN 10 MG TAB PO SCH (19:51)
[2020-08-14] MEDS: EZETIMIBE 10 MG TAB PO SCH (19:52)
[2020-08-14 19:57] VITALS: RESP 16
[2020-08-15] MEDS: LORazepam 1 MG TAB PO PRN (03:20)
[2020-08-15] MEDS: carvediloL 12.5 MG TAB PO SCH (05:53)
[2020-08-15] MEDS: NYSTATIN 100,000 UNIT/ML SUSP 500,000 UNIT/5 ML CUP PO SCH (05:53)
[2020-08-15 07:56] LABS: HCT 25.5 % (34.0-46.0); HGB 8.7 gm/dL (11.4-16.0); MCH 30.5 pg (25.0-35.0); MCHC 34.1 g/dL (31.0-37.0); MCV 89.6 fL (80.0-100.0); Mean Platelet Volume 7.3; Platelet Count 307 k/uL (150-450); RBC 2.84 m/uL (3.80-5.40); RDW 14.4 % (11.5-15.5); WBC 12.3 k/uL (3.8-10.6)
[2020-08-15 08:14] LABS: ALT 8 U/L (4-34); AST 19 U/L (14-36); African American GFR (CKD) 72 (>60 ml/min/1.73 sqM); Albumin 2.8 g/dL (3.5-5.0); Alkaline Phosphatase 82 U/L (38-126); Anion Gap 4 mmol/L; Blood Urea Nitrogen 7 mg/dL (7-17); Calcium 8.6 mg/dL (8.4-10.2); Carbon Dioxide 25 mmol/L (22-30); Chloride 107 mmol/L (98-107); Glucose 131 mg/dL (74-99); Non-African American GFR(CKD) 62 (>60 ml/min/1.73 sqM); Potassium 3.5 mmol/L (3.5-5.1); Sodium 136 mmol/L (137-145); Total Bilirubin <0.1 mg/dL (0.2-1.3); Total Protein 5.7 g/dL (6.3-8.2)
--- NOTE | 2020-08-15 08:18 | P.DS ---
Providers Date of admission: 08/10/20 17:12 Attending physician: Uri Chaudhary Consults: 08/12/20 15:46 Consult Physician Routine Consulting Provider: Osmany Sinclair Consult Reason/Comments: Abnormal CT of the chest without nodularity, rule out infection Do you want consulting provider notified?: Yes Consult Physician Urgent Consulting Provider: Axel Thakkar Consult Reason/Comments: recurrent presyncope ,h/o TIA Do you want consulting provider notified?: Yes Primary care physician: Uri Chaudhary - Discharge Diagnosis(es) (1) Dehydration Current Visit: Yes Status: Acute (2) Hypomagnesemia Current Visit: Yes Status: Acute (3) Syncope due to orthostatic hypotension Current Visit: Yes Status: Acute (4) At risk for readmission to hospital Current Visit: No Status: Acute (5) HTN (hypertension) Current Visit: No Status: Acute (6) Near syncope Current Visit: No Status: Acute Hospital Course: This is a discharge summary a 9-year-old white female essentially admitted for syncope dehydration and element of respiratory distress. The patient ended up having IV hydration with appropriate resolution of her dehydration. The patient had multiple consultants including pulmonology who ended up doing a bronchoscopy because of her respiratory baseline. She did quite well with multiple mucous plugs being removed. She'll now be discharged home with home health once cleared by pulmonology. The patient is now stable without voiding difficulties although significant fatigue is noted. She struggles secondary to her being also very frail. Prognosis is somewhat guarded secondary to advancing age and multiple comorbidities. She'll follow-up with me in about 3-5 days. Patient Condition at Discharge: Fair Plan - Discharge Summary Discharge Rx Participant: Yes New Discharge Prescriptions: New Nystatin 100,000 Unit/ml Susp [Mycostatin Oral Susp] 500,000 unit PO Q6HR #200 ml Doxycycline [Vibramycin] 100 mg PO BID #20 cap Continue Isosorbide Mononitrate [Imdur] 30 mg PO DAILY Carvedilol 25 mg PO BID Multivitamin/Iron/Folic Acid [Centrum Complete Multivit Tab] 1 tab PO DAILY Aspirin EC [Ecotrin Low Dose] 81 mg PO DAILY Simvastatin [Zocor] 20 mg PO HS cloNIDine HCL [Catapres] 0.3 mg PO BID LORazepam [Ativan] 1 mg PO TID PRN PRN Reason: Anxiety Ezetimibe [Zetia] 10 mg PO HS Nitroglycerin Sl Tabs [Nitrostat] 0.4 mg SL Q5M PRN PRN Reason: Chest Pain amLODIPine [Norvasc] 10 mg PO DAILY #0 Meclizine [Antivert] 25 mg PO TID #20 tab Mirabegron [Myrbetriq] 50 mg PO DAILY Furosemide [Lasix] 20 mg PO DAILY prednisoLONE ACETATE 1% OPHTH [Pred Forte 1%] 1 drop RIGHT EYE QID Niacin 250 mg PO DAILY Cyanocobalamin (Vitamin B-12) [Vitamin B-12] 1,000 mcg PO DAILY Calcium Carbonate [Calcium] 600 mg PO DAILY Ofloxacin 0.3% Ophth Soln [Ocuflox Ophth Soln] 1 drop RIGHT EYE QID Discharge Medication List Carvedilol 25 mg PO BID 12/18/13 [History] Isosorbide Mononitrate [Imdur] 30 mg PO DAILY 12/18/13 [History] Multivitamin/Iron/Folic Acid [Centrum Complete Multivit Tab] 1 tab PO DAILY 11/17/15 [History] Aspirin EC [Ecotrin Low Dose] 81 mg PO DAILY 09/16/18 [History] Ezetimibe [Zetia] 10 mg PO HS 12/26/18 [History] LORazepam [Ativan] 1 mg PO TID PRN 12/26/18 [History] Simvastatin [Zocor] 20 mg PO HS 12/26/18 [History] cloNIDine HCL [Catapres] 0.3 mg PO BID 12/26/18 [History] Nitroglycerin Sl Tabs [Nitrostat] 0.4 mg SL Q5M PRN 12/24/19 [History] amLODIPine [Norvasc] 10 mg PO DAILY #0 01/03/20 [Rx] Calcium Carbonate [Calcium] 600 mg PO DAILY 08/07/20 [History] Cyanocobalamin (Vitamin B-12) [Vitamin B-12] 1,000 mcg PO DAILY 08/07/20 [History] Furosemide [Lasix] 20 mg PO DAILY 08/07/20 [History] Meclizine [Antivert] 25 mg PO TID #20 tab 08/07/20 [Rx] Mirabegron [Myrbetriq] 50 mg PO DAILY 08/07/20 [History] Niacin 250 mg PO DAILY 08/07/20 [History] Ofloxacin 0.3% Ophth Soln [Ocuflox Ophth Soln] 1 drop RIGHT EYE QID 08/07/20 [History] prednisoLONE ACETATE 1% OPHTH [Pred Forte 1%] 1 drop RIGHT EYE QID 08/07/20 [History] Doxycycline [Vibramycin] 100 mg PO BID #20 cap 08/15/20 [Rx] Nystatin 100,000 Unit/ml Susp [Mycostatin Oral Susp] 500,000 unit PO Q6HR #200 ml 08/15/20 [Rx] Follow up Appointment(s)/Referral(s): Uri Chaudhary MD [Primary Care Provider] - 1-2 days Osmany Sinclair MD [STAFF PHYSICIAN] - 1 Week Oz Spaulding MD [STAFF PHYSICIAN] - 1 Week
[2020-08-15] MEDS: amLODIPine 10 MG TAB PO SCH (09:06)
[2020-08-15] MEDS: FUROSEMIDE 20 MG TAB PO SCH (09:06)
[2020-08-15] MEDS: MECLIZINE 25 MG TAB PO SCH (09:06)
[2020-08-15] MEDS: ISOSORBIDE MONONITRATE ER 30 MG TAB.ER.24H PO SCH (09:06)
[2020-08-15] MEDS: cloNIDine HCL 0.1 MG TAB PO SCH (09:07)
[2020-08-15] MEDS: CYANOCOBALAMIN 500 MCG TAB PO SCH (09:07)
[2020-08-15] MEDS: MULTIVITAMINS, THERA 1 EACH TAB PO SCH (09:07)
[2020-08-15] MEDS: ASPIRIN 81 MG PO SCH (09:07)
[2020-08-15] MEDS: FAMOTIDINE 20 MG TAB PO SCH (09:07)
[2020-08-15] MEDS: PATIENT'S OWN (Mirabegron [Myrbetriq] 50 MG Tab.Er.24h) PO SCH (09:08)
[2020-08-15] MEDS: DOXYCYCLINE 100 MG CAP PO SCH (09:08)
[2020-08-15] MEDS: NIACIN TR 250 MG CAPSULE.ER PO SCH (09:08)
[2020-08-15] MEDS: HEPARIN SODIUM,PORCINE/PF 5,000 UNIT/0.5 ML SYRINGE SQ SCH (09:08)
[2020-08-15] MEDS: OFLOXACIN 0.3% OPHTH DROPS 5 ML BOTTLE RIGHT EYE SCH (09:10)
[2020-08-15] MEDS: prednisoLONE ACETATE 1% OPHTH DROPS 5 ML BTL RIGHT EYE SCH (09:10)
--- NOTE | 2020-08-15 10:23 | P.PN ---
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 08/15/2020, patient seen eval examined during the rounds labs reviewed medications status was bronchoscopy, cultures are pending primary services looking for possible discharge, would recommend to follow up on outpatient basis, would recommend oral antibiotics and discharge, patient is 96% at room air, hemodynamics stable, 08/14/2020, patient seen eval examined during the rounds labs reviewed medications reviewed care plan discussed, patient feeling slightly dizzy patient is due for her and the word, we'll give it with a sip of water, patient is currently nothing by mouth as well will put patient on IV fluids D5 normal saline 75 mL an hour, procedure explained to the patient as well as the daughter plan for bronchoscopy later on today for pulmonary toilet suctioning and samples This is a pleasant 89-year-old female who was seen eval reexamined in third floor, patient came into the hospital with the lightheadedness and dizziness, patient has been feeling very weak for the last several days, patient does have a history of multiple pneumonias episodes in the past with the last episode several months ago require hospitalization, patient has a several pneumonias as growing up, she used to smoke and quit smoking about 40 years ago, her prior history significant for CVA TIA and GERD hyperlipidemia hypertension hypertensive cardiovascular disease chronic back pain and urinary incontinence, chin has a recent retinal tear on the right eye has been passed, patient sees everton Chaudhary for primary care activity, her labs were unremarkable but however her computed tomography scan showed no pulmonary embolism but with bronchial wall thickening area of mucous plug and hazy infiltrate mostly on the right upper lobe, patient has extensive bronchiectasis of the bilateral upper lobes, patient will benefit from bronchoscopy for pulmonary toilet and airway cleaning as well as sampling of antibiotics likely patient is having a subtle pneumonia Objective - Vital Signs Vital signs: Vital Signs Temp 98 F 08/15/20 03:29 Pulse 88 08/15/20 03:29 Resp 16 08/15/20 03:29 BP 134/76 08/15/20 03:29 Pulse Ox 96 08/15/20 03:29 Intake & Output 05/24/21 05/25/21 05/25/21 18:59 06:59 18:59 Intake Total 100 250 Output Total 700 200 Balance -600 -200 250 Weight 47.8 kg Intake: IV 100 Oral 250 Output: Urine 200 200 Stool 500 Other: Voiding Method Toilet Diaper Incontinent # Voids 2 1 - Exam - Constitutional General appearance: average body habitus, cooperative, disheveled, mild distress - EENT Right eye covered with the patch Ears: bilateral: normal - Neck Carotids: bilateral: upstroke normal Thyroid: bilateral: normal size - Respiratory Respiratory: bilateral: diminished, wheezing - Cardiovascular Rhythm: regular Heart sounds: normal: S1, S2 - Gastrointestinal General gastrointestinal: normal bowel sounds, soft - Integumentary Integumentary: normal turgor - Neurologic Neurologic: CNII-XII intact - Musculoskeletal Musculoskeletal: gait normal, generalized weakness, strength equal bilaterally - Psychiatric Psychiatric: A&O x's 3, appropriate affect, intact judgment & insight - Labs CBC & Chem 7: 08/15/20 07:00 08/15/20 07:00 Labs: Abnormal Lab Results - Last 24 Hours (Table) 08/15/20 08/15/20 Range/Units 07:00 07:00 WBC 12.3 H (3.8-10.6) k/uL RBC 2.84 L (3.80-5.40) m/uL Hgb 8.7 L (11.4-16.0) gm/dL Hct 25.5 L (34.0-46.0) % Sodium 136 L (137-145) mmol/L Glucose 131 H (74-99) mg/dL Total Bilirubin <0.1 L (0.2-1.3) mg/dL Total Protein 5.7 L (6.3-8.2) g/dL Albumin 2.8 L (3.5-5.0) g/dL Microbiology - Last 24 Hours (Table) 08/14/20 15:26 Gram Stain - Preliminary Bronchoalviolar Lavage - Right Bronchial Washings Culture - Preliminary 08/14/20 15:26 Legionella Culture - Preliminary Bronchial Brushings - Left 08/14/20 15:26 Fungal Culture - Preliminary Bronchoalviolar Lavage - Right 08/14/20 15:26 Acid Fast Bacilli Culture - Preliminary Bronchoalviolar Lavage - Left Assessment and Plan Assessment: Right upper lobe pneumonia Right upper lobe nodule ill-defined Extensive upper lobe bronchiectasis with mucus plugging Near syncope Generalized weakness and medical debility Dyslipidemia Hypertension 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
[2020-08-15 11:19] VITALS: BP 159/65; PULSE 79; TEMP 97.8
== END 2020-08-15 16:22 | disposition home or self-care (01) | DRG 312 ==
LOC: EC 12:47 → 3SCARD 17:12
PROVIDERS: ADMIT Family Medicine; ATTEND Family Medicine
PROC: 0BCB8ZZ Extirpation of Matter from Left Lower Lobe Bronchus, Via Natural or Artificial Opening Endoscopic (ICD-10-PCS; 2020-08-14)
PROC: 0BC48ZZ Extirpation of Matter from Right Upper Lobe Bronchus, Via Natural or Artificial Opening Endoscopic (ICD-10-PCS; 2020-08-14)
PROC: 0BC88ZZ Extirpation of Matter from Left Upper Lobe Bronchus, Via Natural or Artificial Opening Endoscopic (ICD-10-PCS; 2020-08-14)
PROC: 0B9J8ZX Drainage of Left Lower Lung Lobe, Via Natural or Artificial Opening Endoscopic, Diagnostic (ICD-10-PCS; 2020-08-14)
PROC: 0B9G8ZX Drainage of Left Upper Lung Lobe, Via Natural or Artificial Opening Endoscopic, Diagnostic (ICD-10-PCS; 2020-08-14)
PROC: 0B9H8ZX Drainage of Lung Lingula, Via Natural or Artificial Opening Endoscopic, Diagnostic (ICD-10-PCS; 2020-08-14)
PROC: 0B9C8ZX Drainage of Right Upper Lung Lobe, Via Natural or Artificial Opening Endoscopic, Diagnostic (ICD-10-PCS; principal; 2020-08-14 08:35)
DX: I95.1 Orthostatic hypotension (principal); J18.9 Pneumonia, unspecified organism; J44.0 Chronic obstructive pulmonary disease with (acute) lower respiratory infection; T17.590A Other foreign object in bronchus causing asphyxiation, initial encounter; E86.0 Dehydration; E83.42 Hypomagnesemia; E78.5 Hyperlipidemia, unspecified; I11.9 Hypertensive heart disease without heart failure; Z79.82 Long term (current) use of aspirin; Z86.73 Personal history of transient ischemic attack (TIA), and cerebral infarction without residual deficits; G89.29 Other chronic pain; K21.9 Gastro-esophageal reflux disease without esophagitis; R32 Unspecified urinary incontinence; X58.XXXA Exposure to other specified factors, initial encounter; M54.9 Dorsalgia, unspecified; R54 Age-related physical debility; R11.2 Nausea with vomiting, unspecified; I25.2 Old myocardial infarction; Z87.891 Personal history of nicotine dependence; M19.041 Primary osteoarthritis, right hand; M19.042 Primary osteoarthritis, left hand; Z90.710 Acquired absence of both cervix and uterus; Z98.1 Arthrodesis status; Z98.41 Cataract extraction status, right eye; Z98.42 Cataract extraction status, left eye; Z96.1 Presence of intraocular lens; F41.9 Anxiety disorder, unspecified; Z79.899 Other long term (current) drug therapy
CPT/HCPCS: 31624; 36415; 71046; 71275; 80048; 80053; 81001; 82550; 82607; 83036; 83605; 83735; 84132; 84145; 84439; 84443; 84484; 85025; 85027; 85379; 85610; 85730; 86140; 87070; 87077; 87086; 87102; 87116; 87186; 87205; 87206; 87252; 87496; 87498; 87502; 87529; 87634; 87635; 87798; 88108; 88305; 93005; 93306; 93880; 96361; 96365; 99285

== ENCOUNTER 2020-08-28 15:07 | Inpatient (IN) | payer MEDICARE, BC ==
[2020-08-28 16:14] LABS: Basophils % (A) 0 %; Eosinophils # (A) 0.3 k/uL (0-0.7); Eosinophils % (A) 3 %; HGB 9.8 gm/dL (11.4-16.0); Lymphocytes # (A) 1.2 k/uL (1.0-4.8); Lymphocytes % (A) 10 %; MCHC 33.9 g/dL (31.0-37.0); MCV 88.4 fL (80.0-100.0); Mean Platelet Volume 7.2; Monocytes # (A) 0.8 k/uL (0-1.0); Monocytes % (A) 7 %; Neutrophils # (A) 9.5 k/uL (1.3-7.7); Neutrophils % (A) 79 %; Platelet Count 373 k/uL (150-450); RBC 3.28 m/uL (3.80-5.40); RDW 13.9 % (11.5-15.5)
--- NOTE | 2020-08-28 16:15 | ED ---
General Adult HPI - General Chief complaint: Shortness of Breath Stated complaint: pneumonia Time Seen by Provider: 08/28/20 15:46 Source: patient, family, RN notes reviewed, old records reviewed Mode of arrival: ambulatory Limitations: no limitations - History of Present Illness Initial comments: 89-year-old female presenting with dyspnea, generalized weakness. Symptoms have progressed over the past several weeks she had an admission to the hospital 3 weeks ago and was discharged approximately 2 weeks ago. She was treated for pneumonia at that time. She states her symptoms have failed to improve she has exertional dyspnea and generalized weakness. No fever. No chest pain. She does report lower extremity edema although this has improved with elevation. She denies headache or focal numbness or weakness. - Related Data Home Medications Medication Instructions Recorded Confirmed Carvedilol 25 mg PO BID 12/18/13 08/28/20 Isosorbide Mononitrate [Imdur] 30 mg PO DAILY 12/18/13 08/28/20 Multivitamin/Iron/Folic Acid 1 tab PO DAILY 11/17/15 08/28/20 [Centrum Complete Multivit Tab] Aspirin EC [Ecotrin Low Dose] 81 mg PO DAILY 09/16/18 08/28/20 Ezetimibe [Zetia] 10 mg PO HS 12/26/18 08/28/20 LORazepam [Ativan] 1 mg PO TID PRN 12/26/18 08/28/20 Simvastatin [Zocor] 20 mg PO HS 12/26/18 08/28/20 cloNIDine HCL [Catapres] 0.3 mg PO BID 12/26/18 08/28/20 Nitroglycerin Sl Tabs [Nitrostat] 0.4 mg SL Q5M PRN 12/24/19 08/28/20 Calcium Carbonate [Calcium] 600 mg PO DAILY 08/07/20 08/28/20 Cyanocobalamin (Vitamin B-12) 1,000 mcg PO DAILY 08/07/20 08/28/20 [Vitamin B-12] Furosemide [Lasix] 20 mg PO DAILY 08/07/20 08/28/20 Mirabegron [Myrbetriq] 50 mg PO DAILY 08/07/20 08/28/20 Niacin 250 mg PO DAILY 08/07/20 08/28/20 Ofloxacin 0.3% Ophth Soln [Ocuflox 1 drop RIGHT EYE QID 08/07/20 08/28/20 Ophth Soln] prednisoLONE ACETATE 1% OPHTH 1 drop RIGHT EYE QID 08/07/20 08/28/20 [Pred Forte 1%] Previous Rx's Medication Instructions Recorded amLODIPine [Norvasc] 10 mg PO DAILY #0 01/03/20 Meclizine [Antivert] 25 mg PO TID #20 tab 08/07/20 Allergies Allergy/AdvReac Type Severity Reaction Status Date / Time oxycodone [From Percocet] Allergy Unknown Verified 08/28/20 17:17 codeine AdvReac Nausea & Verified 08/28/20 17:17 Vomiting meperidine HCl [From Demerol] AdvReac Nausea & Verified 08/28/20 17:17 Vomiting morphine AdvReac Nausea & Verified 08/28/20 17:17 Vomiting Review of Systems ROS Statement: Those systems with pertinent positive or pertinent negative responses have been documented in the HPI. ROS Other: All systems not noted in ROS Statement are negative. Past Medical History Past Medical History: Chest Pain / Angina, CVA/TIA, GERD/Reflux, Hyperlipidemia, Hypertension, Myocardial Infarction ([place]), Pneumonia, Syncope Additional Past Medical History / Comment(s): Past syncopal episodes, TIAs, UTIs, DJD spin, chronic back pain, arthritis hands, diverticular disease.urinary incontinence- wears briefs Last Myocardial Infarction Date:: 11/16/2010 History of Any Multi-Drug Resistant Organisms: None Reported Past Surgical History: Adenoidectomy, Appendectomy, Back Surgery, Cholecystectomy, Heart Catheterization, Hysterectomy, Tonsillectomy Additional Past Surgical History / Comment(s): cardiac caths in 2010 and 2013, back fusion/discectomy, colonoscopy, bilateral cataract removal with lens implants, Past Anesthesia/Blood Transfusion Reactions: Postoperative Nausea & Vomiting (PONV) Past Psychological History: Anxiety Smoking Status: Never smoker Past Alcohol Use History: None Reported Past Drug Use History: None Reported - Past Family History Father Additional Family Medical History / Comment(s): Father at the age of 57yrs with "heart problems". Mother Additional Family Medical History / Comment(s): Mother had an enlarged heart. She at the age of 79yrs. General Exam Limitations: no limitations General appearance: alert, in no apparent distress Head exam: Present: atraumatic, normocephalic Eye exam: Present: normal appearance, PERRL Neck exam: Present: normal inspection. Absent: tenderness, meningismus Respiratory exam: Present: rales, rhonchi. Absent: respiratory distress Cardiovascular Exam: Present: regular rate, normal rhythm GI/Abdominal exam: Present: soft. Absent: distended, tenderness, guarding Extremities exam: Present: pedal edema. Absent: calf tenderness Neurological exam: Present: alert, oriented X3, CN II-XII intact. Absent: motor sensory deficit Psychiatric exam: Present: normal affect, normal mood Skin exam: Present: warm, dry, intact. Absent: cyanosis, diaphoretic Course Vital Signs 08/28/20 08/28/20 08/28/20 15:24 15:34 16:43 Temperature 98.1 F Pulse Rate 72 69 Respiratory 18 20 18 Rate Blood Pressure 109/52 132/54 EKG Findings - EKG Comments: EKG Findings:: EKG: Normal sinus rhythm, possible left atrial enlargement, no ST segment elevation, ventricular rate is 70, RI interval 186, QRS duration 84, QTC 410. Medical Decision Making - Medical Decision Making 89-year-old female with increased weakness, dyspnea. Chest x-ray showing p neumonia versus fibrosis. She has a mild leukocytosis, stable hemoglobin, normal electrolytes. She will be admitted for further evaluation treatment. Case discussed with Dr. Chaudhary. - Lab Data Result diagrams: 08/28/20 16:05 08/28/20 16:05 Lab Results 08/28/20 08/28/20 08/28/20 Range/Units 16:05 16:05 16:05 WBC 12.0 H (3.8-10.6) k/uL RBC 3.28 L (3.80-5.40) m/uL Hgb 9.8 L (11.4-16.0) gm/dL Hct 29.0 L (34.0-46.0) % MCV 88.4 (80.0-100.0) fL MCH 30.0 (25.0-35.0) pg MCHC 33.9 (31.0-37.0) g/dL RDW 13.9 (11.5-15.5) % Plt Count 373 (150-450) k/uL MPV 7.2 Neutrophils % 79 % Lymphocytes % 10 % Monocytes % 7 % Eosinophils % 3 % Basophils % 0 % Neutrophils # 9.5 H (1.3-7.7) k/uL Lymphocytes # 1.2 (1.0-4.8) k/uL Monocytes # 0.8 (0-1.0) k/uL Eosinophils # 0.3 (0-0.7) k/uL Basophils # 0.0 (0-0.2) k/uL PT 10.8 (9.0-12.0) sec INR 1.0 (<1.2) APTT 23.1 (22.0-30.0) sec Sodium 136 L (137-145) mmol/L Potassium 3.6 (3.5-5.1) mmol/L Chloride 101 (98-107) mmol/L Carbon Dioxide 28 (22-30) mmol/L Anion Gap 7 mmol/L BUN 16 (7-17) mg/dL Creatinine 0.98 (0.52-1.04) mg/dL Est GFR (CKD-EPI)AfAm 60 (>60 ml/min/1.73 sqM) Est GFR (CKD-EPI)NonAf 52 (>60 ml/min/1.73 sqM) Glucose 140 H (74-99) mg/dL Plasma Lactic Acid Romeo (0.7-2.0) mmol/L Calcium 10.0 (8.4-10.2) mg/dL Magnesium 1.8 (1.6-2.3) mg/dL Total Bilirubin 0.2 (0.2-1.3) mg/dL AST 21 (14-36) U/L ALT 10 (4-34) U/L Alkaline Phosphatase 98 (38-126) U/L Troponin I (0.000-0.034) ng/mL Total Protein 6.5 (6.3-8.2) g/dL Albumin 3.2 L (3.5-5.0) g/dL 08/28/20 08/28/20 Range/Units 16:05 16:05 WBC (3.8-10.6) k/uL RBC (3.80-5.40) m/uL Hgb (11.4-16.0) gm/dL Hct (34.0-46.0) % MCV (80.0-100.0) fL MCH (25.0-35.0) pg MCHC (31.0-37.0) g/dL RDW (11.5-15.5) % Plt Count (150-450) k/uL MPV Neutrophils % % Lymphocytes % % Monocytes % % Eosinophils % % Basophils % % Neutrophils # (1.3-7.7) k/uL Lymphocytes # (1.0-4.8) k/uL Monocytes # (0-1.0) k/uL Eosinophils # (0-0.7) k/uL Basophils # (0-0.2) k/uL PT (9.0-12.0) sec INR (<1.2) APTT (22.0-30.0) sec Sodium (137-145) mmol/L Potassium (3.5-5.1) mmol/L Chloride (98-107) mmol/L Carbon Dioxide (22-30) mmol/L Anion Gap mmol/L BUN (7-17) mg/dL Creatinine (0.52-1.04) mg/dL Est GFR (CKD-EPI)AfAm (>60 ml/min/1.73 sqM) Est GFR (CKD-EPI)NonAf (>60 ml/min/1.73 sqM) Glucose (74-99) mg/dL Plasma Lactic Acid Romeo 1.1 (0.7-2.0) mmol/L Calcium (8.4-10.2) mg/dL Magnesium (1.6-2.3) mg/dL Total Bilirubin (0.2-1.3) mg/dL AST (14-36) U/L ALT (4-34) U/L Alkaline Phosphatase (38-126) U/L Troponin I <0.012 (0.000-0.034) ng/mL Total Protein (6.3-8.2) g/dL Albumin (3.5-5.0) g/dL Disposition Clinical Impression: COPD exacerbation, Pneumonia, Weakness Disposition: ADMITTED IP TO THIS [facility] Condition: Stable Is patient prescribed a controlled substance at d/c from ED?: No Referrals: Uri Chaudhary MD [Primary Care Provider] - 1-2 days Decision to Admit Reason: Admit from EC Decision Date: 08/28/20 Decision Time: 18:17
[2020-08-28 16:28] LABS: Albumin 3.2 g/dL (3.5-5.0); Magnesium 1.8 mg/dL (1.6-2.3); Potassium 3.6 mmol/L (3.5-5.1); Total Bilirubin 0.2 mg/dL (0.2-1.3); Total Protein 6.5 g/dL (6.3-8.2)
[2020-08-28 16:33] LABS: Partial Thromboplastin Time 23.1 sec (22.0-30.0); Prothrombin Time 10.8 sec (9.0-12.0)
--- NOTE | 2020-08-28 16:44 | XR ---
EXAMINATION TYPE: XR chest 2V DATE OF EXAM: 08/28/2020 COMPARISON: 08/10/2020 HISTORY: Weakness. Difficulty breathing. TECHNIQUE: FINDINGS: AP view on the stretcher shows some diffuse interstitial and nodular infiltrates throughout the lungs. Heart size is fairly normal. There is no pleural effusion. Thoracic aorta is atheromatous . There are no hilar masses. IMPRESSION: There is chronic interstitial and nodular pulmonary infiltrates not significantly differe nt than old exam. 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 Lung disease increased compared to 201 9 exams. Acute pneumonia not excluded.
[2020-08-28] MEDS ORDERED: ALBUTEROL NEBULIZED 2.5 MG/3 ML INHALATION STA (18:10)
[2020-08-28] MEDS ORDERED: IPRATROPIUM-ALBUTEROL 3 ML NEB INHALATION STA (18:10)
[2020-08-28] MEDS ORDERED: IPRATROPIUM-ALBUTEROL 3 ML NEB INHALATION PRN (18:12)
[2020-08-28] MEDS ORDERED: cefTRIAXone IN SWFI 1,000 MG/10 ML SYRINGE IVP STA (18:15)
[2020-08-28] MEDS ORDERED: AZITHROMYCIN 500 MG in SODIUM CHLORIDE 0.9% 250 ML IVPB STA (18:15)
[2020-08-29] MEDS ORDERED: NITROGLYCERIN SL TABS 0.4 MG TAB SUBLINGUAL PRN (00:33)
[2020-08-29] MEDS ORDERED: ZOLPIDEM 5 MG TAB PO PRN (00:40)
[2020-08-29] MEDS: LORazepam 1 MG TAB PO PRN ×2 (00:58→23:17)
--- NOTE | 2020-08-29 08:15 | P.HPIM ---
History of Present Illness Chief Complaint: Generalized weakness. This is a history and physical on an 89-year-old white female with known history of COPD who was recently discharged for pneumonia about 2-3 weeks ago. She states that since then, she still felt weakness yesterday, she fell unexpectedly and has had worsening weakness. She is oxygen dependent at this time and states dyspnea with exertion. She is able to finish sentences and seems relatively lucid for her baseline. She is struggling with significant stress related to her with hospice. No fever. Chest x-ray does show nodular infiltrates and element of COPD. She is appropriately admitted for pneumonia but has more elements of weakness of gait. She has significant need of assistance with her children. She otherwise seems despondent today. Review of Systems Constitutional: Reports weakness, Denies chills, Denies fever Eyes: denies blurred vision, denies pain Ears, nose, mouth and throat: Denies headache, Denies sore throat Cardiovascular: Denies chest pain, Denies shortness of breath Respiratory: Reports cough, Reports dyspnea, Reports home oxygen, Reports respiratory infections, Denies hemoptysis, Denies pain on inspiration Gastrointestinal: Denies abdominal pain, Denies diarrhea, Denies nausea, Denies vomiting Genitourinary: Denies dysuria, Denies hematuria Musculoskeletal: Denies myalgias Past Medical History Past Medical History: Chest Pain / Angina, CVA/TIA, GERD/Reflux, Hyperlipidemia, Hypertension, Myocardial Infarction (AR), Pneumonia, Syncope Additional Past Medical History / Comment(s): Past syncopal episodes, TIAs, UTIs, DJD spin, chronic back pain, arthritis hips and back, diverticular disease.urinary incontinence- wears briefs Last Myocardial Infarction Date:: 11/16/2010 History of Any Multi-Drug Resistant Organisms: None Reported Past Surgical History: Adenoidectomy, Appendectomy, Back Surgery, Cholecystectomy, Heart Catheterization, Hysterectomy, Tonsillectomy Additional Past Surgical History / Comment(s): cardiac caths in 2010 and 2013, back fusion/discectomy, colonoscopy, bilateral cataract removal with lens implants, Past Anesthesia/Blood Transfusion Reactions: Postoperative Nausea & Vomiting (PONV) Past Psychological History: Anxiety Additional Psychological History / Comment(s): takes ativan for anxiety Smoking Status: Never smoker Past Alcohol Use History: None Reported Additional Past Alcohol Use History / Comment(s): Pt states she started smoking in 1949 and quit in 1975. She will have an occasional glass of wine. Past Drug Use History: None Reported - Past Family History Father Additional Family Medical History / Comment(s): Father at the age of 57yrs with "heart problems". Mother Additional Family Medical History / Comment(s): Mother had an enlarged heart. She at the age of 79yrs. Medications and Allergies Home Medications Medication Instructions Recorded Confirmed Type Carvedilol 25 mg PO BID 12/18/13 08/28/20 History Isosorbide Mononitrate [Imdur] 30 mg PO DAILY 12/18/13 08/28/20 History Multivitamin/Iron/Folic Acid 1 tab PO DAILY 11/17/15 08/28/20 History [Centrum Complete Multivit Tab] Aspirin EC [Ecotrin Low Dose] 81 mg PO DAILY 09/16/18 08/28/20 History Ezetimibe [Zetia] 10 mg PO HS 12/26/18 08/28/20 History LORazepam [Ativan] 1 mg PO TID PRN 12/26/18 08/28/20 History Simvastatin [Zocor] 20 mg PO HS 12/26/18 08/28/20 History cloNIDine HCL [Catapres] 0.3 mg PO BID 12/26/18 08/28/20 History Nitroglycerin Sl Tabs [Nitrostat] 0.4 mg SL Q5M PRN 12/24/19 08/28/20 History amLODIPine [Norvasc] 10 mg PO DAILY #0 01/03/20 08/28/20 Rx Calcium Carbonate [Calcium] 600 mg PO DAILY 08/07/20 08/28/20 History Cyanocobalamin (Vitamin B-12) 1,000 mcg PO DAILY 08/07/20 08/28/20 History [Vitamin B-12] Furosemide [Lasix] 20 mg PO DAILY 08/07/20 08/28/20 History Meclizine [Antivert] 25 mg PO TID #20 tab 08/07/20 08/28/20 Rx Mirabegron [Myrbetriq] 50 mg PO DAILY 08/07/20 08/28/20 History Niacin 250 mg PO DAILY 08/07/20 08/28/20 History Ofloxacin 0.3% Ophth Soln [Ocuflox 1 drop RIGHT EYE QID 08/07/20 08/28/20 History Ophth Soln] prednisoLONE ACETATE 1% OPHTH 1 drop RIGHT EYE QID 08/07/20 08/28/20 History [Pred Forte 1%] Allergies Allergy/AdvReac Type Severity Reaction Status Date / Time oxycodone [From Percocet] Allergy Unknown Verified 08/28/20 17:17 codeine AdvReac Nausea & Verified 08/28/20 17:17 Vomiting meperidine HCl [From Demerol] AdvReac Nausea & Verified 08/28/20 17:17 Vomiting morphine AdvReac Nausea & Verified 08/28/20 17:17 Vomiting Physical Exam Vitals: Vital Signs Temp Pulse Pulse Resp BP BP Pulse Ox 08/29/20 01:45 99.0 F 72 18 144/73 98 08/28/20 23:41 98.4 F 18 132/57 97 08/28/20 23:30 74 18 131/54 98 08/28/20 19:23 70 08/28/20 18:59 79 08/28/20 18:37 71 18 131/67 96 08/28/20 16:43 69 18 132/54 08/28/20 15:34 20 08/28/20 15:24 98.1 F 72 18 109/52 Intake and Output 08/28/20 08/29/20 08/29/20 22:59 06:59 14:59 Other: Voiding Method Toilet Bedpan # Voids 2 Weight 45.359 kg 45.359 kg - Constitutional General appearance: no no acute distress, thin - EENT Eyes: no abnormal pupil - Neck Neck: no lymphadenopathy - Respiratory Respiratory: bilateral: diminished - Cardiovascular Rhythm: regular Heart sounds: normal: S1, S2 Abnormal Heart Sounds: no S3 Gallop, no S4 Gallop - Gastrointestinal General gastrointestinal: soft, no tenderness - Musculoskeletal Musculoskeletal: no generalized weakness - Psychiatric Psychiatric: A&O x's 3 Results CBC & Chem 7: 08/28/20 16:05 08/28/20 16:05 Labs: Abnormal Lab Results - Last 24 Hours (Table) 08/28/20 08/28/20 Range/Units 16:05 16:05 WBC 12.0 H (3.8-10.6) k/uL RBC 3.28 L (3.80-5.40) m/uL Hgb 9.8 L (11.4-16.0) gm/dL Hct 29.0 L (34.0-46.0) % Neutrophils # 9.5 H (1.3-7.7) k/uL Sodium 136 L (137-145) mmol/L Glucose 140 H (74-99) mg/dL Albumin 3.2 L (3.5-5.0) g/dL Thrombosis Risk Factor Assmnt - Choose All That Apply Each Factor Represents 1 point: Acute AR Each Risk Factor Represents 3 Points: Age 75 years or older Other congenital or acquired thrombophilia - If yes, enter type in comment: No Thrombosis Risk Factor Assessment Total Risk Factor Score: 4 Thrombosis Risk Factor Assessment Level: Moderate Risk Assessment and Plan (1) COPD exacerbation Current Visit: Yes Status: Acute Code(s): J44.1 - CHRONIC OBSTRUCTIVE PUL MONARY DISEASE W (ACUTE) EXACERBATION SNOMED Code(s): 152042977 (2) Pneumonia Current Visit: Yes Status: Acute Code(s): J18.9 - PNEUMONIA, UNSPECIFIED ORGANISM SNOMED Code(s): 604694851 (3) Weakness Current Visit: Yes Status: Acute Code(s): R53.1 - WEAKNESS SNOMED Code(s): 02657636 (4) At risk for readmission to hospital Current Visit: No Status: Acute Code(s): Z91.89 - OTH PERSONAL RISK FACTORS, NOT ELSEWHERE CLASSIFIED SNOMED Code(s): 5113996065743 (5) HTN (hypertension) Current Visit: No Status: Acute Code(s): I10 - ESSENTIAL (PRIMARY) HYPERTENSION SNOMED Code(s): 65104568 Plan: I suspect worsening frailty given her advancing age. Treat for clinical pneumonia. I suspect the patient would benefit from rehab. PT to be consulted. Discharge planning. Check CBC and CMP in a.m. per Reconcile medications.
[2020-08-29] MEDS: IPRATROPIUM-ALBUTEROL 3 ML NEB INHALATION SCH ×4 (08:45→21:33)
[2020-08-29] MEDS: ASPIRIN 81 MG PO SCH (08:47)
[2020-08-29] MEDS: cloNIDine HCL 0.1 MG TAB PO SCH ×2 (08:47→21:37)
[2020-08-29] MEDS: MULTIVITAMINS, THERA 1 EACH TAB PO SCH (08:47)
[2020-08-29] MEDS: CYANOCOBALAMIN 500 MCG TAB PO SCH (08:47)
[2020-08-29] MEDS: carvediloL 12.5 MG TAB PO SCH ×2 (08:47→16:47)
[2020-08-29] MEDS: MECLIZINE 25 MG TAB PO SCH ×3 (08:47→21:37)
[2020-08-29] MEDS: CALCIUM CARBONATE 500 MG CHEWABLE PO SCH (08:47)
[2020-08-29] MEDS: FUROSEMIDE 20 MG TAB PO SCH (08:48)
[2020-08-29] MEDS: NIACIN TR 250 MG CAPSULE.ER PO SCH (08:48)
[2020-08-29] MEDS: predniSONE 20 MG TAB PO SCH (08:48)
[2020-08-29] MEDS: amLODIPine 10 MG TAB PO SCH (08:48)
[2020-08-29] MEDS: EZETIMIBE 10 MG TAB PO SCH (08:48)
[2020-08-29] MEDS: ISOSORBIDE MONONITRATE ER 30 MG TAB.ER.24H PO SCH (08:48)
[2020-08-29] MEDS: NON FORMULARY DRUG (Mirabegron [Myrbetriq] 50 MG Tab.Er.24h) PO SCH (09:12)
[2020-08-29] MEDS: prednisoLONE ACETATE 1% OPHTH DROPS 5 ML BTL RIGHT EYE SCH ×2 (09:12→16:45)
[2020-08-29] MEDS: OFLOXACIN 0.3% OPHTH DROPS 5 ML BOTTLE RIGHT EYE SCH ×2 (09:12→16:45)
[2020-08-29 13:53] VITALS: BMI 19.5
[2020-08-29] MEDS: ATORVASTATIN 10 MG TAB PO SCH (21:37)
[2020-08-30 02:15] VITALS: RESP 16
[2020-08-30] MEDS: predniSONE 20 MG TAB PO SCH (07:41)
[2020-08-30] MEDS: amLODIPine 10 MG TAB PO SCH (07:41)
[2020-08-30] MEDS: MECLIZINE 25 MG TAB PO SCH ×3 (07:41→20:47)
[2020-08-30] MEDS: CYANOCOBALAMIN 500 MCG TAB PO SCH (07:42)
[2020-08-30] MEDS: carvediloL 12.5 MG TAB PO SCH ×2 (07:42→16:29)
[2020-08-30] MEDS: FUROSEMIDE 20 MG TAB PO SCH (07:42)
[2020-08-30] MEDS: cloNIDine HCL 0.1 MG TAB PO SCH ×2 (07:42→20:47)
[2020-08-30] MEDS: ISOSORBIDE MONONITRATE ER 30 MG TAB.ER.24H PO SCH (07:44)
[2020-08-30] MEDS: MULTIVITAMINS, THERA 1 EACH TAB PO SCH ×2 (07:44→07:47)
[2020-08-30] MEDS: ASPIRIN 81 MG PO SCH (07:44)
[2020-08-30] MEDS: CALCIUM CARBONATE 500 MG CHEWABLE PO SCH (07:44)
[2020-08-30] MEDS: NIACIN TR 250 MG CAPSULE.ER PO SCH (07:45)
--- NOTE | 2020-08-30 08:29 | P.PN ---
Subjective Principal diagnosis: Generalized weakness The patient is admitted essentially for generalized weakness and element of COPD. The patient has therapy consulted and has no voiding difficulties. She is concerned because her is in hospice at [facility]. No voiding difficulties. No sniffing nausea, vomiting or diarrhea. PT/OT has been consulted assist with gait training and fall elements. She is requesting her o wn walker which I told her that her family can bring up for her to use. Objective - Vital Signs Vital signs: Vital Signs Temp 97.6 F 08/30/20 07:40 Pulse 74 08/30/20 07:40 Resp 16 08/30/20 07:40 BP 138/62 08/30/20 07:40 Pulse Ox 98 08/30/20 07:40 Intake & Output 08/29/20 08/30/20 08/30/20 18:59 06:59 18:59 Weight 45.359 kg Other: Voiding Method Toilet Bedpan # Voids 2 2 - Constitutional General appearance: Present: no acute distress - EENT Eyes: Absent: abnormal pupil - Neck Neck: Absent: lymphadenopathy - Respiratory Respiratory: bilateral: diminished - Cardiovascular Rhythm: regular Heart sounds: normal: S1, S2 Abnormal Heart Sounds: Absent: S3 Gallop - Gastrointestinal General gastrointestinal: Present: soft. Absent: tenderness - Integumentary Integumentary: Absent: cellulitis - Labs CBC & Chem 7: 08/28/20 16:05 08/28/20 16:05 Labs: Microbiology - Last 24 Hours (Table) 08/28/20 16:05 Blood Culture - Preliminary Blood No Growth after 24 hours Assessment and Plan (1) COPD exacerbation Current Visit: Yes Status: Acute Code(s): J44.1 - CHRONIC OBSTRUCTIVE PULMONARY DISEASE W (ACUTE) EXACERBATION SNOMED Code(s): 566119555 (2) Pneumonia Current Visit: Yes Status: Acute Code(s): J18.9 - PNEUMONIA, UNSPECIFIED ORGANISM SNOMED Code(s): 098891180 (3) Weakness Current Visit: Yes Status: Acute Code(s): R53.1 - WEAKNESS SNOMED Code(s): 63868806 (4) At risk for readmission to hospital Current Visit: No Status: Acute Code(s): Z91.89 - OTH PERSONAL RISK FACTORS, NOT ELSEWHERE CLASSIFIED SNOMED Code(s): 7571106482080 (5) HTN (hypertension) Current Visit: No Status: Acute Code(s): I10 - ESSENTIAL (PRIMARY) HYPERTENSION SNOMED Code(s): 80099367 Plan: I suspect worsening frailty given her advancing age. I suspect the patient would benefit from rehab. PT to be consulted. Discharge planning. Element of COPD which is stable. Prognosis is guarded.
[2020-08-30] MEDS: IPRATROPIUM-ALBUTEROL 3 ML NEB INHALATION SCH ×4 (09:45→21:21)
[2020-08-30] MEDS: NON FORMULARY DRUG (Mirabegron [Myrbetriq] 50 MG Tab.Er.24h) PO SCH (09:45)
[2020-08-30 11:54] LABS: HCT 24.5 % (37.2-46.3); HGB 7.6 g/dL (12.0-15.0); MCH 28.5 pg (27.0-32.0); MCV 91.8 fL (80.0-97.0); Mean Platelet Volume 10.1 fL (9.5-12.2); Platelet Count 356 X 10*3/uL (140-440); RBC 2.67 X 10*6/uL (4.10-5.20); RDW 14.3 % (11.5-14.5); WBC 11.83 X 10*3/uL (4.50-10.00)
[2020-08-30 14:36] LABS: African American GFR (CKD) 58.7 (60.0-200.0); Albumin 2.9 g/dL (3.80-4.90); Albumin/Globulin Ratio 1.07 (1.60-3.17); Anion Gap 6.5 mmol/L (4.00-12.00); Calcium 8.5 mg/dL (8.7-10.3); Carbon Dioxide 26.5 mmol/L (21.6-31.8); Globulin 2.7 g/dL (1.6-3.3); Non-African American GFR(CKD) 50.6 (60.0-200.0); Potassium 3.6 mmol/L (3.5-5.5); Total Bilirubin 0.1 mg/dL (0.3-1.2); Total Protein 5.6 g/dL (6.2-8.2)
--- NOTE | 2020-08-30 16:16 | CDI ---
Documentation Clarification Form Date: 08/30/2020 04:02:02 PM From: Halima Ferreira RN, CCDS Admit Date: 08/28/2020 06:12:00 PM Patient Name: Oumou Mazariegos Visit Number: [id number] Discharge Date: ATTENTION: The Clinical Documentation Specialists (CDI) and [facility] Coding Staff appreciate your assistance in clarifying documentation. Please respond to the clarification below the line at the bottom and electronically sign. The CDI & [facility] Coding staff will review the response and follow-up if needed. Please note: Queries are made part of the Legal Health Record. If you have any questions, please contact the author of this message via ITS. Dr. Uri chaidez , stage1 pressure ulcer is documented by Wound Care on 08/28 and nutritional assessment on 08/29 Based on this information and the findings below, is there an additional diagnosis that is clinically appropriate for this patient? History/Risk Factors: COPD, Pneumonia, Urinary incontinence-wears briefs, Hypertension, CVA, Clinical Indicators: 89-year-old female present to ED on 08/28 with fall and worsening weakness. Nursing wound assessment: pressure injury staging stage 1 Location: coccyx Wound description: skin temperature warm Treatment: Monitor skin integrity Is there an additional diagnosis that is clinically appropriate for this patient? [ x ] Coccyx Pressure Ulcer Stage 1 present on admission [ ] Other condition, please specify [ ] Unable to determine Clinical Definitions: Stage 1 Pressure Ulcer: intact skin, non-blanching redness of local area Stage 2 Pressure Ulcer: Partial thickness, loss of dermis, pink wound bed Stage 3 Pressure Ulcer: Full thickness tissue loss Stage 4 Pressure Ulcer: Full thickness tissue loss with exposed bone, tendon, or muscle. Unstageable pressure ulcer: Full thickness tissue loss in which the base of the ulcer is covered by slough (yellow, kern, garcia, green or brown) and/or eschar (kern, brown or black) in the wound bed. (Template Last Revised: May 2020) MTDD
--- NOTE | 2020-08-30 16:38 | CDI ---
Documentation Clarification Form Date: 08/30/2020 04:16:00 PM From: Halima Ferreira RN, CCDS Admit Date: 08/28/2020 06:12:00 PM Patient Name: Oumou Mazariegos Visit Number: [id number] Discharge Date: ATTENTION: The Clinical Documentation Specialists (CDI) and [facility] Coding Staff appreciate your assistance in clarifying documentation. Please respond to the clarification below the line at the bottom and electronically sign. The CDI & [facility] Coding staff will review the response and follow-up if needed. Please note: Queries are made part of the Legal Health Record. If you have any questions, please contact the author of this message via ITS. Dr. Uri Chaudhary A Dietitian consult was placed on 08/29 for Malnutrition. Additional clarification regarding the severity of malnutrition is requested. History/Risk Factors: CVA, HTN, COPD, Pneumonia, Pulmonary fibrosis Clinical Indicators: 89-year-old female with poor appetite, states she lost 50 lbs in a year. She reports not being hungry. Physical findings per nutrition assessment. Underweight, moderate temporalis wasting stage 1 pressure injury on coccyx. 08/28 HGB 9.8 NA: 136, Albumin 3.2, Total Protein 6.5 Current BMI: 9,5 Insufficient energy intake: Yes, unintended weight loss Weight Loss: 24.2 kg wt loss over 3 years, BMI <23 for adults.65 Treatment: Dietary Consult: Yes Increased PO intake from 50% -75% Monitor PO intake, supplement intake Supplements: Ensure compact TID Please clarify the type of malnutrition, if known: [ x ] Mild Protein-Calorie Malnutrition [ ] Moderate Protein-Calorie Malnutrition [ ] Severe Protein-Calorie Malnutrition [ ] Other condition, please specify [ ] Unable to Determine (Template Last Revised: May 2020) MTDD
[2020-08-30] MEDS: ATORVASTATIN 10 MG TAB PO SCH (20:47)
[2020-08-30] MEDS: EZETIMIBE 10 MG TAB PO SCH (20:47)
[2020-08-30] MEDS: LORazepam 1 MG TAB PO PRN (22:22)
[2020-08-31 08:17] VITALS: BP 138/55; TEMP 97.5
--- NOTE | 2020-08-31 08:32 | P.DS ---
Providers Date of admission: 08/28/20 18:12 Attending physician: Uri Chaudhary Primary care physician: Uri Chaudhary - Discharge Diagnosis(es) (1) COPD exacerbation Current Visit: Yes Status: Acute (2) Pneumonia Current Visit: Yes Status: Acute (3) Weakness Current Visit: Yes Status: Acute (4) At risk for readmission to hospital Current Visit: No Status: Acute (5) HTN (hypertension) Current Visit: No Status: Acute Hospital Course: This discharge summary 89-year-old white female with history of COPD and gene ralized weakness with significant frailty. The patient had high fall risk and was admitted for respite and rehab. The patient has used her walker and is now ambulating at somewhat of a improved baseline. No breathing difficulties. No fever no cough. The patient is voiding without difficulty although we had a long discussion regarding nutritional status and supplementation and she has element of mild malnutrition. The patient was discharged in guarded condition to follow-up with me about 3 days. Home health will be consulted. Patient Condition at Discharge: Stable Plan - Discharge Summary Discharge Rx Participant: No New Discharge Prescriptions: No Action RX: Isosorbide Mononitrate [Imdur] 30 mg PO DAILY RX: Carvedilol 25 mg PO BID RX: Multivitamin/Iron/Folic Acid [Centrum Complete Multivit Tab] 1 tab PO DAILY RX: Aspirin EC [Ecotrin Low Dose] 81 mg PO DAILY RX: Simvastatin [Zocor] 20 mg PO HS RX: cloNIDine HCL [Catapres] 0.3 mg PO BID RX: LORazepam [Ativan] 1 mg PO TID PRN PRN Reason: Anxiety RX: Ezetimibe [Zetia] 10 mg PO HS RX: Nitroglycerin Sl Tabs [Nitrostat] 0.4 mg SL Q5M PRN PRN Reason: Chest Pain RX: amLODIPine [Norvasc] 10 mg PO DAILY #0 RX: Meclizine [Antivert] 25 mg PO TID #20 tab RX: Mirabegron [Myrbetriq] 50 mg PO DAILY RX: Furosemide [Lasix] 20 mg PO DAILY RX: prednisoLONE ACETATE 1% OPHTH [Pred Forte 1%] 1 drop RIGHT EYE QID RX: Niacin 250 mg PO DAILY RX: Cyanocobalamin (Vitamin B-12) [Vitamin B-12] 1,000 mcg PO DAILY RX: Calcium Carbonate [Calcium] 600 mg PO DAILY RX: Ofloxacin 0.3% Ophth Soln [Ocuflox Ophth Soln] 1 drop RIGHT EYE QID Discharge Medication List RX: Carvedilol 25 mg PO BID 12/18/13 [History] RX: Isosorbide Mononitrate [Imdur] 30 mg PO DAILY 12/18/13 [History] RX: Multivitamin/Iron/Folic Acid [Centrum Complete Multivit Tab] 1 tab PO DAILY 11/17/15 [History] RX: Aspirin EC [Ecotrin Low Dose] 81 mg PO DAILY 09/16/18 [History] RX: Ezetimibe [Zetia] 10 mg PO HS 12/26/18 [History] RX: LORazepam [Ativan] 1 mg PO TID PRN 12/26/18 [History] RX: Simvastatin [Zocor] 20 mg PO HS 12/26/18 [History] RX: cloNIDine HCL [Catapres] 0.3 mg PO BID 12/26/18 [History] RX: Nitroglycerin Sl Tabs [Nitrostat] 0.4 mg SL Q5M PRN 12/24/19 [History] RX: amLODIPine [Norvasc] 10 mg PO DAILY #0 01/03/20 [Rx] RX: Calcium Carbonate [Calcium] 600 mg PO DAILY 08/07/20 [History] RX: Cyanocobalamin (Vitamin B-12) [Vitamin B-12] 1,000 mcg PO DAILY 08/07/20 [History] RX: Furosemide [Lasix] 20 mg PO DAILY 08/07/20 [History] RX: Meclizine [Antivert] 25 mg PO TID #20 tab 08/07/20 [Rx] RX: Mirabegron [Myrbetriq] 50 mg PO DAILY 08/07/20 [History] RX: Niacin 250 mg PO DAILY 08/07/20 [History] RX: Ofloxacin 0.3% Ophth Soln [Ocuflox Ophth Soln] 1 drop RIGHT EYE QID 08/07/20 [History] RX: prednisoLONE ACETATE 1% OPHTH [Pred Forte 1%] 1 drop RIGHT EYE QID 08/07/20 [History] Follow up Appointment(s)/Referral(s): Uri Chaudhary MD [Primary Care Provider] - 1-2 days [facility] Visiting Nurse, [NON-STAFF] - As Needed
[2020-08-31] MEDS: ASPIRIN 81 MG PO SCH (08:36)
[2020-08-31] MEDS: CALCIUM CARBONATE 500 MG CHEWABLE PO SCH (08:36)
[2020-08-31] MEDS: MULTIVITAMINS, THERA 1 EACH TAB PO SCH (08:36)
[2020-08-31] MEDS: ISOSORBIDE MONONITRATE ER 30 MG TAB.ER.24H PO SCH (08:36)
[2020-08-31] MEDS: NIACIN TR 250 MG CAPSULE.ER PO SCH (08:36)
[2020-08-31] MEDS: MECLIZINE 25 MG TAB PO SCH (08:37)
[2020-08-31] MEDS: carvediloL 12.5 MG TAB PO SCH (08:37)
[2020-08-31] MEDS: amLODIPine 10 MG TAB PO SCH (08:37)
[2020-08-31] MEDS: FUROSEMIDE 20 MG TAB PO SCH (08:37)
[2020-08-31] MEDS: cloNIDine HCL 0.1 MG TAB PO SCH (08:37)
[2020-08-31] MEDS: predniSONE 20 MG TAB PO SCH (08:37)
[2020-08-31] MEDS: CYANOCOBALAMIN 500 MCG TAB PO SCH (08:37)
[2020-08-31] MEDS: NON FORMULARY DRUG (Mirabegron [Myrbetriq] 50 MG Tab.Er.24h) PO SCH (08:38)
[2020-08-31] MEDS: IPRATROPIUM-ALBUTEROL 3 ML NEB INHALATION SCH (09:01)
[2020-08-31 09:12] VITALS: PULSE 75
[2020-08-31 09:25] LABS: ALT 14 U/L (4-34); AST 24 U/L (14-36); African American GFR (CKD) 48 (>60 ml/min/1.73 sqM); Albumin 3.2 g/dL (3.5-5.0); Albumin/Globulin Ratio 0.9; Alkaline Phosphatase 103 U/L (38-126); Anion Gap 8 mmol/L; Blood Urea Nitrogen 28 mg/dL (7-17); Calcium 9.4 mg/dL (8.4-10.2); Carbon Dioxide 26 mmol/L (22-30); Chloride 102 mmol/L (98-107); Globulin 3.4 g/dL; Glucose 117 mg/dL (74-99); Non-African American GFR(CKD) 42 (>60 ml/min/1.73 sqM); Potassium 4.2 mmol/L (3.5-5.1); Sodium 136 mmol/L (137-145); Total Bilirubin <0.1 mg/dL (0.2-1.3); Total Protein 6.6 g/dL (6.3-8.2)
[2020-08-31 09:54] LABS: HCT 29.5 % (34.0-46.0); HGB 9.4 gm/dL (11.4-16.0); Hypochromasia Slight; MCH 28.8 pg (25.0-35.0); MCHC 31.7 g/dL (31.0-37.0); Mean Platelet Volume 10.3; Platelet Count 288 k/uL (150-450); RBC 3.24 m/uL (3.80-5.40); WBC 14.1 k/uL (3.8-10.6)
== END 2020-08-31 11:26 | disposition home health service (06) | DRG 190 ==
LOC: EC 15:07 → 4SSUR 18:12
PROVIDERS: ADMIT Family Medicine; ATTEND Family Medicine
DX: J44.0 Chronic obstructive pulmonary disease with (acute) lower respiratory infection (principal); J18.9 Pneumonia, unspecified organism; E44.1 Mild protein-calorie malnutrition; Z68.1 Body mass index [BMI] 19.9 or less, adult; L89.151 Pressure ulcer of sacral region, stage 1; R59.1 Generalized enlarged lymph nodes; R54 Age-related physical debility; J44.1 Chronic obstructive pulmonary disease with (acute) exacerbation; E78.5 Hyperlipidemia, unspecified; F41.9 Anxiety disorder, unspecified; I10 Essential (primary) hypertension; I25.2 Old myocardial infarction; M19.041 Primary osteoarthritis, right hand; M19.042 Primary osteoarthritis, left hand; Z20.822 Contact with and (suspected) exposure to COVID-19; Z79.82 Long term (current) use of aspirin; Z87.891 Personal history of nicotine dependence; Z79.899 Other long term (current) drug therapy; Z90.710 Acquired absence of both cervix and uterus; Z91.81 History of falling; Z96.1 Presence of intraocular lens; Z98.41 Cataract extraction status, right eye; Z98.42 Cataract extraction status, left eye; Z86.73 Personal history of transient ischemic attack (TIA), and cerebral infarction without residual deficits; Z98.1 Arthrodesis status; Z99.81 Dependence on supplemental oxygen; Z87.01 Personal history of pneumonia (recurrent); Z88.5 Allergy status to narcotic agent; Z87.440 Personal history of urinary (tract) infections; R60.0 Localized edema
CPT/HCPCS: 36415; 71046; 80053; 83605; 83735; 83880; 84484; 85025; 85027; 85610; 85730; 87040; 87635; 93005; 94640; 94760; 99285

== ENCOUNTER 2020-10-22 14:36 | Emergency (ER) | payer MEDICARE, BC ==
[2020-10-22] MEDS ORDERED: SODIUM CHLORIDE 0.9% 1,000 ML IV STA (15:21)
--- NOTE | 2020-10-22 15:23 | ED ---
General Adult HPI - General Chief complaint: Dizziness Stated complaint: Weakness Time Seen by Provider: 10/22/20 14:52 Source: patient, family, EMS, RN notes reviewed Mode of arrival: EMS Limitations: no limitations - History of Present Illness Initial comments: Patient is a pleasant 89-year-old female presenting to the emergency department with lightheadedness and general weakness. Onset of symptoms was today. Patient has had similar symptoms several times in the past associated with dehydration. Patient feels lightheaded with getting up and movement. Patient did receive near liter of fluids by EMS with improvement of symptoms. No dysuria or hematuria or frequency. No pain. No isolated area of weakness. No confusion. Family does not feel patient has been eating well recently. - Related Data Home Medications Medication Instructions Recorded Confirmed Carvedilol 25 mg PO BID 12/18/13 10/22/20 Isosorbide Mononitrate [Imdur] 30 mg PO DAILY 12/18/13 10/22/20 Multivitamin/Iron/Folic Acid 1 tab PO DAILY 11/17/15 10/22/20 [Centrum Complete Multivit Tab] Aspirin EC [Ecotrin Low Dose] 81 mg PO DAILY 09/16/18 10/22/20 Ezetimibe [Zetia] 10 mg PO HS 12/26/18 10/22/20 LORazepam [Ativan] 1 mg PO TID PRN 12/26/18 10/22/20 Simvastatin [Zocor] 20 mg PO HS 12/26/18 10/22/20 cloNIDine HCL [Catapres] 0.3 mg PO BID 12/26/18 10/22/20 Calcium Carbonate [Calcium] 600 mg PO DAILY 08/07/20 10/22/20 Cyanocobalamin (Vitamin B-12) 1,000 mcg PO DAILY 08/07/20 10/22/20 [Vitamin B-12] Mirabegron [Myrbetriq] 50 mg PO DAILY 08/07/20 10/22/20 Albuterol Sulfate [Albuterol 2 puff PO RT-Q6H PRN 10/22/20 10/22/20 Sulfate Hfa] Cholecalciferol [Vitamin D3 (25 25 mcg PO DAILY 10/22/20 10/22/20 Mcg = 1000 Iu)] amLODIPine [Norvasc] 5 mg PO DAILY 10/22/20 10/22/20 Previous Rx's Medication Instructions Recorded Nitrofurantoin Monohyd/M-Cryst 100 mg PO Q12HR #20 cap 10/22/20 [Macrobid] Allergies Allergy/AdvReac Type Severity Reaction Status Date / Time oxycodone [From Percocet] Allergy Unknown Verified 10/22/20 14:49 codeine AdvReac Nausea & Verified 10/22/20 14:49 Vomiting meperidine HCl [From Demerol] AdvReac Nausea & Verified 10/22/20 14:49 Vomiting morphine AdvReac Nausea & Verified 10/22/20 14:49 Vomiting Review of Systems ROS Statement: Those systems with pertinent positive or pertinent negative responses have been documented in the HPI. ROS Other: All systems not noted in ROS Statement are negative. Constitutional: Denies: fever Eyes: Denies: eye pain ENT: Denies: ear pain Respiratory: Denies: cough Cardiovascular: Denies: chest pain Endocrine: Reports: fatigue Gastrointestinal: Denies: abdominal pain Genitourinary: Denies: dysuria Skin: Denies: rash Neurological: Denies: headache, confusion Past Medical History Past Medical History: Chest Pain / Angina, CVA/TIA, GERD/Reflux, Hyperlipidemia, Hypertension, Myocardial Infarction ([place]), Pneumonia, Syncope Additional Past Medical History / Comment(s): Past syncopal episodes, TIAs, UTIs, DJD spin, chronic back pain, arthritis hips and back, diverticular disease.urinary incontinence- wears briefs Last Myocardial Infarction Date:: 11/16/2010 History of Any Multi-Drug Resistant Organisms: None Reported Past Surgical History: Adenoidectomy, Appendectomy, Back Surgery, Cholecystectomy, Heart Catheterization, Hysterectomy, Tonsillectomy Additional Past Surgical History / Comment(s): cardiac caths in 2010 and 2013, back fusion/discectomy, colonoscopy, bilateral cataract removal with lens implants, Past Anesthesia/Blood Transfusion Reactions: Postoperative Nausea & Vomiting (PONV) Past Psychological History: Anxiety Smoking Status: Never smoker Past Alcohol Use History: Occasional Past Drug Use History: None Reported - Past Family History Father Additional Family Medical History / Comment(s): Father at the age of 57yrs with "heart problems". Mother Additional Family Medical History / Comment(s): Mother had an enlarged heart. She at the age of 79yrs. General Exam Limitations: no limitations General appearance: alert, in no apparent distress Head exam: Present: normocephalic Eye exam: Present: normal appearance, PERRL, EOMI ENT exam: Present: mucous membranes dry Neck exam: Present: normal inspection Respiratory exam: Present: normal lung sounds bilaterally Cardiovascular Exam: Present: regular rate, normal rhythm GI/Abdominal exam: Present: soft. Absent: tenderness Neurological exam: Present: alert, oriented X3, CN II-XII intact. Absent: motor sensory deficit Expanded Neurological exam: Present: protecting the airway Patient oriented to: Present: person, place, time Speech: Present: fluid speech Cranial nerves: EOM's Intact: Normal Motor strength exam: RUE: 5, LUE: 5, RLE: 5, LLE: 5 Eye Response: (4) open spontaneously Motor Response: (6) obeys commands Verbal Response: (5) oriented Psychiatric exam: Present: normal affect, normal mood Skin exam: Present: normal color Course Vital Signs 10/22/20 10/22/20 10/22/20 14:46 15:30 16:00 Temperature 97.2 F L Pulse Rate 61 60 Pulse Rate [ 61 Sitting] Pulse Rate [ 60 Standing] Pulse Rate [ 60 Supine] Respiratory 16 18 20 Rate Blood Pressure 128/76 119/62 Blood Pressure 118/64 [Sitting] Blood Pressure 96/52 [Standing] Blood Pressure 119/60 [Supine] O2 Sat by Pulse 97 99 Oximetry 10/22/20 10/22/20 17:00 18:00 Temperature Pulse Rate 61 62 Pulse Rate [ Sitting] Pulse Rate [ Standing] Pulse Rate [ Supine] Respiratory 20 20 Rate Blood Pressure 119/59 121/61 Blood Pressure [Sitting] Blood Pressure [Standing] Blood Pressure [Supine] O2 Sat by Pulse 99 99 Oximetry EKG Findings - EKG Comments: EKG Findings:: Sinus bradycardia 58. WA 190. QRS 88. QT 404. QTC 396. Normal axis. LVH criteria with repolarization change. Medical Decision Making - Medical Decision Making Patient reevaluated and feels much better following fluids. Patient would like to be discharged home. Family member is present and agreeable with this. Patient and family updated on results and need for follow-up. - Lab Data Result diagrams: 10/22/20 15:36 10/22/20 15:36 Lab Results 10/22/20 10/22/20 10/22/20 Range/Units 15:36 15:36 15:36 WBC 12.4 H (3.8-10.6) k/uL RBC 3.24 L (3.80-5.40) m/uL Hgb 9.4 L (11.4-16.0) gm/dL Hct 29.3 L (34.0-46.0) % MCV 90.4 (80.0-100.0) fL MCH 28.9 (25.0-35.0) pg MCHC 32.0 (31.0-37.0) g/dL RDW 14.9 (11.5-15.5) % Plt Count 324 (150-450) k/uL MPV 7.8 Neutrophils % 82 % Lymphocytes % 10 % Monocytes % 5 % Eosinophils % 3 % Basophils % 1 % Neutrophils # 10.1 H (1.3-7.7) k/uL Lymphocytes # 1.2 (1.0-4.8) k/uL Monocytes # 0.6 (0-1.0) k/uL Eosinophils # 0.3 (0-0.7) k/uL Basophils # 0.1 (0-0.2) k/uL PT 10.6 (9.0-12.0) sec INR 1.0 (<1.2) APTT 21.3 L (22.0-30.0) sec Sodium (137-145) mmol/L Potassium (3.5-5.1) mmol/L Chloride (98-107) mmol/L Carbon Dioxide (22-30) mmol/L Anion Gap mmol/L BUN (7-17) mg/dL Creatinine (0.52-1.04) mg/dL Est GFR (CKD-EPI)AfAm (>60 ml/min/1.73 sqM) Est GFR (CKD-EPI)NonAf (>60 ml/min/1.73 sqM) Glucose (74-99) mg/dL Plasma Lactic Acid Romeo (0.7-2.0) mmol/L Calcium (8.4-10.2) mg/dL Total Bilirubin (0.2-1.3) mg/dL AST (14-36) U/L ALT (4-34) U/L Alkaline Phosphatase (38-126) U/L Creatine Kinase (30-135) U/L Troponin I (0.000-0.034) ng/mL Total Protein (6.3-8.2) g/dL Albumin (3.5-5.0) g/dL Urine Color Yellow Urine Appearance Clear (Clear) Urine pH 6.0 (5.0-8.0) Ur Specific Angier 1.022 (1.001-1.035) Urine Protein 2+ H (Negative) Urine Glucose (UA) Negative (Negative) Urine Ketones Negative (Negative) Urine Blood Negative (Negative) Urine Nitrite Negative (Negative) Urine Bilirubin Negative (Negative) Urine Urobilinogen <2.0 (<2.0) mg/dL Ur Leukocyte Esterase Moderate H (Negative) Urine RBC 2 (0-5) /hpf Urine WBC 34 H (0-5) /hpf Ur Squamous Epith Cells 1 (0-4) /hpf Hyaline Casts 7 H (0-2) /lpf Urine Mucus Rare H (None) /hpf 10/22/20 10/22/20 10/22/20 Range/Units 15:36 15:36 15:36 WBC (3.8-10.6) k/uL RBC (3.80-5.40) m/uL Hgb (11.4-16.0) gm/dL Hct (34.0-46.0) % MCV (80.0-100.0) fL MCH (25.0-35.0) pg MCHC (31.0-37.0) g/dL RDW (11.5-15.5) % Plt Count (150-450) k/uL MPV Neutrophils % % Lymphocytes % % Monocytes % % Eosinophils % % Basophils % % Neutrophils # (1.3-7.7) k/uL Lymphocytes # (1.0-4.8) k/uL Monocytes # (0-1.0) k/uL Eosinophils # (0-0.7) k/uL Basophils # (0-0.2) k/uL PT (9.0-12.0) sec INR (<1.2) APTT (22.0-30.0) sec Sodium 135 L (137-145) mmol/L Potassium 3.4 L (3.5-5.1) mmol/L Chloride 106 (98-107) mmol/L Carbon Dioxide 25 (22-30) mmol/L Anion Gap 4 mmol/L BUN 14 (7-17) mg/dL Creatinine 0.90 (0.52-1.04) mg/dL Est GFR (CKD-EPI)AfAm 67 (>60 ml/min/1.73 sqM) Est GFR (CKD-EPI)NonAf 58 (>60 ml/min/1.73 sqM) Glucose 100 H (74-99) mg/dL Plasma Lactic Acid Romeo 0.8 (0.7-2.0) mmol/L Calcium 8.7 (8.4-10.2) mg/dL Total Bilirubin <0.1 L (0.2-1.3) mg/dL AST 18 (14-36) U/L ALT 10 (4-34) U/L Alkaline Phosphatase 90 (38-126) U/L Creatine Kinase 33 (30-135) U/L Troponin I <0.012 (0.000-0.034) ng/mL Total Protein 5.3 L (6.3-8.2) g/dL Albumin 2.6 L (3.5-5.0) g/dL Urine Color Urine Appearance (Clear) Urine pH (5.0-8.0) Ur Specific Angier (1.001-1.035) Urine Protein (Negative) Urine Glucose (UA) (Negative) Urine Ketones (Negative) Urine Blood (Negative) Urine Nitrite (Negative) Urine Bilirubin (Negative) Urine Urobilinogen (<2.0) mg/dL Ur Leukocyte Esterase (Negative) Urine RBC (0-5) /hpf Urine WBC (0-5) /hpf Ur Squamous Epith Cells (0-4) /hpf Hyaline Casts (0-2) /lpf Urine Mucus (None) /hpf - Radiology Data Radiology results: image reviewed (Chest x-ray does not reveal acute process) Disposition Clinical Impression: Orthostatic hypotension, Urinary tract infection Disposition: HOME SELF-CARE Condition: Stable Instructions (If sedation given, give patient instructions): Dizziness (ED), Urinary Tract Infection in Women (ED) Additional Instructions: Prescription has been sent to your pharmacy. Please follow-up with primary care physician in the next day or 2 for recheck. Return for weakness, unable to walk or take care of of your self, fevers or confusion, worsening symptoms or other concerns. Prescriptions: Nitrofurantoin Monohyd/M-Cryst [Macrobid] 100 mg PO Q12HR #20 cap Is patient prescribed a controlled substance at d/c from ED?: No Referrals: Uri Chaudhary MD [Primary Care Provider] - 1-2 days Time of Disposition: 18:29
[2020-10-22 15:47] LABS: Basophils # (A) 0.1 k/uL (0-0.2); Basophils % (A) 1 %; Eosinophils # (A) 0.3 k/uL (0-0.7); Eosinophils % (A) 3 %; HCT 29.3 % (34.0-46.0); HGB 9.4 gm/dL (11.4-16.0); Lymphocytes # (A) 1.2 k/uL (1.0-4.8); Lymphocytes % (A) 10 %; MCH 28.9 pg (25.0-35.0); MCV 90.4 fL (80.0-100.0); Mean Platelet Volume 7.8; Monocytes # (A) 0.6 k/uL (0-1.0); Monocytes % (A) 5 %; Neutrophils # (A) 10.1 k/uL (1.3-7.7); Neutrophils % (A) 82 %; Platelet Count 324 k/uL (150-450); RBC 3.24 m/uL (3.80-5.40); RDW 14.9 % (11.5-15.5); WBC 12.4 k/uL (3.8-10.6)
[2020-10-22 16:01] LABS: ALT 10 U/L (4-34); AST 18 U/L (14-36); African American GFR (CKD) 67 (>60 ml/min/1.73 sqM); Albumin 2.6 g/dL (3.5-5.0); Alkaline Phosphatase 90 U/L (38-126); Anion Gap 4 mmol/L; Blood Urea Nitrogen 14 mg/dL (7-17); Calcium 8.7 mg/dL (8.4-10.2); Carbon Dioxide 25 mmol/L (22-30); Chloride 106 mmol/L (98-107); Creatine Kinase 33 U/L (30-135); Glucose 100 mg/dL (74-99); Non-African American GFR(CKD) 58 (>60 ml/min/1.73 sqM); Potassium 3.4 mmol/L (3.5-5.1); Sodium 135 mmol/L (137-145); Total Bilirubin <0.1 mg/dL (0.2-1.3); Total Protein 5.3 g/dL (6.3-8.2)
--- NOTE | 2020-10-22 16:06 | XR ---
EXAMINATION TYPE: XR chest 2V DATE OF EXAM: 10/22/2020 COMPARISON: Chest radiograph 08/28/2020 and CTA chest 08/12/2020 HISTORY: Generalized weakness TECHNIQUE: Frontal and lateral views of the chest FINDINGS: Cardiac mediastinal silhouette appears within normal limits. Similar appearing chronic inte rstitial lung changes. No focal consolidation, pleural effusion, or pneumothorax. Lungs appear hypere xpanded. S-shaped scoliotic curvature of the thoracolumbar spine. No acute osseous abdomen. Visualize d upper abdomen appears normal. IMPRESSION: No acute cardiopulmonary process.
[2020-10-22 16:15] LABS: Prothrombin Time 10.6 sec (9.0-12.0)
[2020-10-22 16:17] LABS: Partial Thromboplastin Time 21.3 sec (22.0-30.0)
[2020-10-22] MEDS ORDERED: SODIUM CHLORIDE 0.9% 500 ML 500 ML IV STA (16:43)
[2020-10-22 18:13] LABS: Appearance,Urine Clear (Clear); Bilirubin,Urine Negative (Negative); Blood,Urine Negative (Negative); Color,Urine Yellow; Glucose,Urine (UA) Negative (Negative); Hyaline Casts,Urine 7 /lpf (0-2); Ketones,Urine Negative (Negative); Leukocyte Esterase,Urine Moderate (Negative); Mucus,Urine Rare /hpf; Nitrite,Urine Negative (Negative); Protein,Urine 2+ (Negative); RBC,Urine 2 /hpf (0-5); Specific Gravity,Urine 1.022 (1.001-1.035); Squamous Epithelial Cell,Urine 1 /hpf (0-4); Urobilinogen,Urine <2.0 mg/dL (<2.0); WBC,Urine 34 /hpf (0-5)
[2020-10-22] MEDS ORDERED: NITROFURANTOIN MONOHYD/M-CRYST 100 MG CAP PO STA (18:29)
[2020-10-22 18:59] VITALS: BP 159/72; PULSE 64; RESP 16; TEMP 98.1
== END 2020-10-22 18:55 | disposition home or self-care (01) ==
LOC: EC 14:36
DX: I95.1 Orthostatic hypotension (principal); N39.0 Urinary tract infection, site not specified; E78.5 Hyperlipidemia, unspecified; E86.0 Dehydration; I10 Essential (primary) hypertension; I25.2 Old myocardial infarction; Z79.82 Long term (current) use of aspirin; Z79.899 Other long term (current) drug therapy; Z86.73 Personal history of transient ischemic attack (TIA), and cerebral infarction without residual deficits; Z88.5 Allergy status to narcotic agent; Z90.49 Acquired absence of other specified parts of digestive tract
CPT/HCPCS: 36415; 71046; 80053; 81001; 82550; 83605; 84484; 85025; 85610; 85730; 87086; 93005; 96360; 96361; 99285

== ENCOUNTER 2020-11-17 13:10 | Observation (INO) | payer MEDICARE, BC ==
[2020-11-17] MEDS ORDERED: NITROGLYCERIN SL TABS 0.4 MG TAB SUBLINGUAL STA (13:16)
[2020-11-17] MEDS ORDERED: SODIUM CHLORIDE 0.9% 1,000 ML IV STA (13:16)
--- NOTE | 2020-11-17 13:20 | ED ---
Chest Pain HPI - General Stated Complaint: Chest Pain Time Seen by Provider: 11/17/20 13:10 Source: patient, EMS, RN notes reviewed - History of Present Illness Initial Comments: Is a 72-year-old female with a history of recent diagnosis of emphysema among other medical problems who for the past couple days of having retrosternal chest heaviness nonradiating she states was 7 and 8/10 severity also sweats she has some lightheadedness and dizziness. She also states her blood pressure is 117/40 and stayed in the 40s throughout the morning. No fevers chills nausea vomiting sweats cough or phlegm production. Prior history of heart disease. Per paramedics EKG shows no ST changes. MD Complaint: chest pain - Related Data Home Medications Medication Instructions Recorded Confirmed Carvedilol 25 mg PO BID 12/18/13 11/17/20 Isosorbide Mononitrate [Imdur] 30 mg PO DAILY 12/18/13 11/17/20 Multivitamin/Iron/Folic Acid 1 tab PO DAILY 11/17/15 11/17/20 [Centrum Complete Multivit Tab] Aspirin EC [Ecotrin Low Dose] 81 mg PO DAILY 09/16/18 11/17/20 Ezetimibe [Zetia] 10 mg PO HS 12/26/18 11/17/20 LORazepam [Ativan] 1 mg PO HS 12/26/18 11/17/20 Simvastatin [Zocor] 20 mg PO HS 12/26/18 11/17/20 cloNIDine HCL [Catapres] 0.3 mg PO BID 12/26/18 11/17/20 Calcium Carbonate [Calcium] 600 mg PO DAILY 08/07/20 11/17/20 Cyanocobalamin (Vitamin B-12) 1,000 mcg PO DAILY 08/07/20 11/17/20 [Vitamin B-12] Mirabegron [Myrbetriq] 50 mg PO DAILY 08/07/20 11/17/20 Albuterol Sulfate [Albuterol 2 puff INHALATION RT-Q6H PRN 10/22/20 11/17/20 Sulfate Hfa] Cholecalciferol [Vitamin D3 (25 25 mcg PO DAILY 10/22/20 11/17/20 Mcg = 1000 Iu)] amLODIPine [Norvasc] 5 mg PO DAILY 10/22/20 11/17/20 Furosemide [Lasix] 20 mg PO DAILY 11/17/20 11/17/20 Allergies Allergy/AdvReac Type Severity Reaction Status Date / Time oxycodone [From Percocet] Allergy Unknown Verified 11/17/20 14:50 codeine AdvReac Nausea & Verified 11/17/20 14:50 Vomiting meperidine HCl [From Demerol] AdvReac Nausea & Verified 11/17/20 14:50 Vomiting morphine AdvReac Nausea & Verified 11/17/20 14:50 Vomiting Review of Systems ROS Statement: Those systems with pertinent positive or pertinent negative responses have been documented in the HPI. ROS Other: All systems not noted in ROS Statement are negative. EKG Findings - EKG Results: EKG: interpreted by HANDY, sinus rhythm (Sinus rhythm of 70 MT interval 174 QRS 84 QT since QTC 406/438 middle voltage criteria for LVH this is compared to EKG done 10/22/20 showing no changes) Past Medical History Past Medical History: Chest Pain / Angina, CVA/TIA, GERD/Reflux, Hyperlipidemia, Hypertension, Myocardial Infarction ([place]), Pneumonia, Syncope Additional Past Medical History / Comment(s): Past syncopal episodes, TIAs, UTIs, DJD spin, chronic back pain, arthritis hips and back, diverticular disease.urinary incontinence- wears briefs Last Myocardial Infarction Date:: 11/16/2010 History of Any Multi-Drug Resistant Organisms: None Reported Past Surgical History: Adenoidectomy, Appendectomy, Back Surgery, Cholecystectomy, Heart Catheterization, Hysterectomy, Tonsillectomy Additional Past Surgical History / Comment(s): cardiac caths in 2010 and 2013, back fusion/discectomy, colonoscopy, bilateral cataract removal with lens implants, Past Anesthesia/Blood Transfusion Reactions: Postoperative Nausea & Vomiting (PONV) Past Alcohol Use History: None Reported - Past Family History Father Additional Family Medical History / Comment(s): Father at the age of 57yrs with "heart problems". Mother Additional Family Medical History / Comment(s): Mother had an enlarged heart. She at the age of 79yrs. General Exam - General Exam Comments Initial Comments: Pezzer well-developed sec appearing female who is awake alert oriented 3 General appearance: alert, in no apparent distress Head exam: Present: atraumatic, normocephalic, normal inspection Eye exam: Present: normal appearance, PERRL, EOMI. Absent: scleral icterus, conjunctival injection, periorbital swelling ENT exam: Present: mucous membranes dry Neck exam: Present: normal inspection, full ROM, other (No stridor JVD or bruits). Absent: tenderness, meningismus, lymphadenopathy Respiratory exam: Present: normal lung sounds bilaterally. Absent: respiratory distress, wheezes, rales, rhonchi, stridor Cardiovascular Exam: Present: regular rate, normal rhythm, normal heart sounds. Absent: systolic murmur, diastolic murmur, rubs, gallop, clicks GI/Abdominal exam: Present: soft, normal bowel sounds. Absent: distended, tenderness, guarding, rebound, rigid, bruit, pulsatile mass Extremities exam: Present: normal inspection, full ROM, normal capillary refill. Absent: tenderness, pedal edema, joint swelling, calf tenderness Back exam: Present: normal inspection Neurological exam: Present: alert, oriented X3, CN II-XII intact Psychiatric exam: Present: normal affect, normal mood Skin exam: Present: warm, dry, intact, normal color. Absent: rash Course Vital Signs 11/17/20 11/17/20 11/17/20 13:11 13:30 14:00 Temperature 97.9 F Pulse Rate 73 69 62 Respiratory 18 16 20 Rate Blood Pressure 135/101 135/101 145/60 O2 Sat by Pulse 98 97 97 Oximetry 11/17/20 11/17/20 11/17/20 15:00 16:00 16:30 Temperature Pulse Rate 59 L 61 66 Respiratory 24 12 18 Rate Blood Pressure 150/72 166/88 163/70 O2 Sat by Pulse 96 96 98 Oximetry - Reevaluation(s) Reevaluation #1: 11/17/20 17:30 Reevaluation the patient finds the patient is pain-free. Chest Pain MDM - MDM Imaging reviewed no acute findings CT negative for pulmonary embolism. I did discuss findings with patient family as well as with Dr. linares service patient will be admitted for evaluation of chest pain Disposition Clinical Impression: Unstable angina, Chest pain Disposition: ADMITTED IP TO THIS [facility] Condition: Stable Referrals: Uri Chaudhary MD [Primary Care Provider] - 1-2 days
[2020-11-17 13:56] LABS: Calcium 9.2 mg/dL (8.4-10.2); Magnesium 1.8 mg/dL (1.6-2.3); Potassium 3.6 mmol/L (3.5-5.1); Total Bilirubin 0.3 mg/dL (0.2-1.3); Total Protein 5.9 g/dL (6.3-8.2)
[2020-11-17 13:59] LABS: Basophils # (A) 0.1 k/uL (0-0.2); Basophils % (A) 1 %; Eosinophils # (A) 0.2 k/uL (0-0.7); Eosinophils % (A) 2 %; HCT 33.4 % (34.0-46.0); HGB 10.6 gm/dL (11.4-16.0); INR 0.9 (<1.2); Lymphocytes # (A) 1.1 k/uL (1.0-4.8); Lymphocytes % (A) 10 %; MCH 28.9 pg (25.0-35.0); MCHC 31.7 g/dL (31.0-37.0); Mean Platelet Volume 7.8; Monocytes # (A) 0.7 k/uL (0-1.0); Monocytes % (A) 7 %; Neutrophils # (A) 8.5 k/uL (1.3-7.7); Neutrophils % (A) 81 %; Partial Thromboplastin Time 22.3 sec (22.0-30.0); Platelet Count 318 k/uL (150-450); Prothrombin Time 10.2 sec (9.0-12.0); RBC 3.67 m/uL (3.80-5.40); RDW 15.6 % (11.5-15.5); WBC 10.6 k/uL (3.8-10.6)
--- NOTE | 2020-11-17 14:35 | XR ---
EXAMINATION TYPE: XR chest 2V DATE OF EXAM: 11/17/2020 COMPARISON: 10/22/2020, CT 08/12/2020 HISTORY: Chest pain TECHNIQUE: Frontal and lateral views of the chest are obtained. FINDINGS: There is no focal air space opacity, pleural effusion, or pneumothorax seen. Apical bronch iectatic changes, bronchial wall thickening changes are again noted. There may be areas of mucous plu gging associated. The cardiac silhouette size is within normal limits. The aorta is dense. The osseo us structures are intact, there is a spinal curvature. There are overlying artifacts. IMPRESSION: No acute cardiopulmonary process.
--- NOTE | 2020-11-17 16:31 | CT ---
EXAMINATION TYPE: CT angio chest DATE OF EXAM: 11/17/2020 COMPARISON: 08/12/2020 HISTORY: 89-year-old female intermediate probability suspected PE, positive d-dimer, chest pain TECHNIQUE: Contiguous axial scanning of the chest performed with IV Contrast, patient injected with 8 0 mL of Isovue 370. Coronal/sagittal MIP reconstructions performed. CT DLP: 126.1 mGycm Automated exposure control for dose reduction was used. FINDINGS: Heart normal size without pericardial effusion. No flattening of the interventricular septum reflux o f contrast into the hepatic veins. Mild to moderate atherosclerotic arch calcifications with conventional arch vessel branching anatomy. Satisfactory opacification of the pulmonary arterial system but without evidence for pulmonary embolu s. Low right paratracheal lymph node measures 9 mm, prominent but nonenlarged. No thoracic lymphadenopat hy by CT size criteria. Moderate diffuse bronchial wall thickening with scattered endobronchial plugging. Some of these have the appearance of the urinary level opacities. Associated tree-in-bud opacities and septal lines and some groundglass. Changes somewhat similar to 08/12/2020 12 with a few areas of progression of the end obronchial opacities. No pleural effusion. Moderate atherosclerotic narrowing at the origin of the celiac axis. 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 Bones: A slight scoliosis with accentuated upper thoracic kyphosis. IMPRESSION: 1. NO EVIDENCE FOR PULMONARY EMBOLUS. 2. EXTENSIVE LUNG ABNORMALITIES ARE REDEMONSTRATED. THERE IS EXTENSIVE ENDOBRONCHIAL PLUGGING WITH SC ATTERED TREE-IN-BUD OPACITIES AND GROUNDGLASS. CONSIDER ETIOLOGIES SUCH MUCOCILIARY DYSFUNCTION AN D ALLERGIC BRONCHOPULMONARY ASPERGILLOSIS (ABPA). RECOMMEND PULMONARY MEDICINE REFERRAL. FINDINGS HAV E SLIGHTLY WORSENED FROM 08/12/2020.
[2020-11-17] MEDS ORDERED: NITROGLYCERIN SL TABS 0.4 MG TAB SUBLINGUAL PRN (17:32)
[2020-11-17] MEDS ORDERED: HEPARIN SODIUM 1,000 UN/ML (10ML VL) IV ONE (17:32)
[2020-11-17] MEDS ORDERED: ALBUTEROL NEBULIZED 2.5 MG/3 ML INHALATION PRN (17:33)
[2020-11-17] MEDS ORDERED: NITROGLYCERIN OINT 1 INCH/GM PACKET TOPICAL STA (17:35)
[2020-11-17] MEDS ORDERED: HEPARIN SOD,PORK IN 0.45% NACL 25,000 UNIT in 0.45% NACL 1 250ML.BAG IV SCH (17:45)
[2020-11-17] MEDS ORDERED: NITROGLYCERIN OINT 1 INCH/GM PACKET TOPICAL SCH (18:00)
[2020-11-17] MEDS: SODIUM CHLORIDE 0.9% 1,000 ML IV SCH (18:05)
[2020-11-17] MEDS: ATORVASTATIN 10 MG TAB PO SCH (20:49)
[2020-11-17] MEDS: carvediloL 12.5 MG TAB PO SCH (20:50)
[2020-11-17] MEDS: cloNIDine HCL 0.1 MG TAB PO SCH (20:50)
[2020-11-17] MEDS: EZETIMIBE 10 MG TAB PO SCH (20:50)
[2020-11-17] MEDS: LORazepam 1 MG TAB PO SCH (20:50)
[2020-11-17] MEDS: NITROGLYCERIN OINT 1 INCH/GM PACKET TOPICAL SCH (23:59)
[2020-11-18] MEDS ORDERED: HEPARIN SODIUM 1,000 UN/ML (10ML VL) IV PRN (01:42)
[2020-11-18] MEDS: NITROGLYCERIN OINT 1 INCH/GM PACKET TOPICAL SCH ×2 (05:22→07:40)
[2020-11-18] MEDS: CALCIUM CARBONATE 500 MG CHEWABLE PO SCH (07:39)
[2020-11-18] MEDS: CHOLECALCIFEROL 25 MCG (1000 IU) TABLET PO SCH (07:40)
[2020-11-18] MEDS: amLODIPine 5 MG TAB PO SCH (07:40)
[2020-11-18] MEDS: ASPIRIN 81 MG PO SCH (07:40)
[2020-11-18] MEDS: carvediloL 12.5 MG TAB PO SCH ×2 (07:40→20:10)
[2020-11-18] MEDS: MULTIVITAMINS, THERA 1 EACH TAB PO SCH (07:40)
[2020-11-18] MEDS: FUROSEMIDE 20 MG TAB PO SCH (07:40)
[2020-11-18] MEDS: CYANOCOBALAMIN 500 MCG TAB PO SCH (07:40)
[2020-11-18] MEDS: cloNIDine HCL 0.1 MG TAB PO SCH ×2 (07:41→20:10)
[2020-11-18] MEDS: NON FORMULARY DRUG (Mirabegron [Myrbetriq] 50 MG Tab.Er.24h) PO SCH (07:41)
[2020-11-18] MEDS ORDERED: ISOSORBIDE MONONITRATE ER 30 MG TAB.ER.24H PO SCH (09:00)
[2020-11-18] MEDS ORDERED: ASPIRIN 325 MG TAB PO SCH (09:00)
--- NOTE | 2020-11-18 12:15 | P.CRDCN ---
History of Present Illness Consult date: 11/18/20 Requesting physician: Lloyd E Luke Reason for Consult (text): chest pain Chief complaint: chest heaviness, shortness of breath, dizziness History of present illness: This is a pleasant 89-year-old female patient who follows with Dr. Spaulding in the office. She has a history of hypertension, hyperlipidemia, Takostubo cardiomyopathy with most recent echocardiogram done in July of this year showing normal LV systolic function with mild AI. She has known mild CAD with cardiac catheterization done in 2013 showing a 20-30% lesion in the proximal to mid LAD. She underwent stress testing with Lexiscan MPI in December 2019 which showed no evidence of ischemia. She presented to the emergency department with complaint of chest heaviness with shortness of breath which started yesterday morning as well as dizziness upon standing. She was prompted to come to the emergency department due to her diastolic blood pressure running in the 40s. The chest heaviness lasted pretty much all day with some decrease in intensity upon arrival to the emergency department. She does verbalize that she's been under increased amount of stress recently and feels that some of her symptoms are related to this. Her is currently in an extended care facility on hospice and her daughters have been having health issues as well. Over the past year she has lost 60 pounds and is planning to follow-up with her PCP soon in this regard. Blood pressure has been elevated since arrival. EKG showed sinus mechanism with no evidence of ischemia. Cardiac enzymes have been unremarkable. Chest x-ray showed no acute cardiopulmonary process. CT of the chest was done due to elevated d-dimer which showed no evidence for pulmonary embolus with extensive lung abnormalities we demonstrated, extensive endobronchial plugging with scattered tree-in-bud Yeso's and groundglass, consider etiologies such as mucosal area dysfunction and ALLERGIC bronchopulmonary aspergillosis, recommend pulmonary medicine referral, findings have slightly worsened from 08/12/2020. She was initiated on IV heparin. She is currently on amlodipine 5 mg by mouth daily, aspirin 81 mg by mouth daily, Lipitor 10 mg by mouth daily at bedtime, carvedilol 25 mg by mouth twice a day, clonidine 0.3 mg by mouth twice a day, steady at 10 mg by mouth daily at bedtime, Lasix 20 mg by mouth daily, isosorbide 30 mg by mouth daily. On examination the patient is feeling overall quite a bit better. She continues to have some very minimal chest heaviness but denies any further complaints of shortness of breath or dizziness. She's had no palpitations, syncope or near syncope. She's had no edema orthopnea or PND. Past Medical History Past Medical History: Chest Pain / Angina, CVA/TIA, GERD/Reflux, Hyperlipidemia, Hypertension, Myocardial Infarction (NH), Pneumonia, Syncope Additional Past Medical History / Comment(s): Past syncopal episodes, TIAs, UTIs, DJD spin, chronic back pain, arthritis hips and back, diverticular disease.urinary incontinence- wears briefs Last Myocardial Infarction Date:: 11/16/2010 History of Any Multi-Drug Resistant Organisms: None Reported Past Surgical History: Adenoidectomy, Appendectomy, Back Surgery, Cholecystectomy, Heart Catheterization, Hysterectomy, Tonsillectomy Additional Past Surgical History / Comment(s): cardiac caths in 2010 and 2013, back fusion/discectomy, colonoscopy, bilateral cataract removal with lens implants, Past Anesthesia/Blood Transfusion Reactions: Postoperative Nausea & Vomiting (PONV) Past Psychological History: Anxiety Additional Psychological History / Comment(s): takes ativan for anxiety Smoking Status: Former smoker Past Alcohol Use History: None Reported Additional Past Alcohol Use History / Comment(s): Pt states she started smoking in 1950 and quit in 1975. She will have an occasional glass of wine. Past Drug Use History: None Reported - Past Family History Father Additional Family Medical History / Comment(s): Father at the age of 57yrs with "heart problems". Mother Additional Family Medical History / Comment(s): Mother had an enlarged heart. She at the age of 79yrs. Medications and Allergies Home Medications Medication Instructions Recorded Confirmed Type Carvedilol 25 mg PO BID 12/18/13 11/17/20 History Isosorbide Mononitrate [Imdur] 30 mg PO DAILY 12/18/13 11/17/20 History Multivitamin/Iron/Folic Acid 1 tab PO DAILY 11/17/15 11/17/20 History [Centrum Complete Multivit Tab] Aspirin EC [Ecotrin Low Dose] 81 mg PO DAILY 09/16/18 11/17/20 History Ezetimibe [Zetia] 10 mg PO HS 12/26/18 11/17/20 History LORazepam [Ativan] 1 mg PO HS 12/26/18 11/17/20 History Simvastatin [Zocor] 20 mg PO HS 12/26/18 11/17/20 History cloNIDine HCL [Catapres] 0.3 mg PO BID 12/26/18 11/17/20 History Calcium Carbonate [Calcium] 600 mg PO DAILY 08/07/20 11/17/20 History Cyanocobalamin (Vitamin B-12) 1,000 mcg PO DAILY 08/07/20 11/17/20 History [Vitamin B-12] Mirabegron [Myrbetriq] 50 mg PO DAILY 08/07/20 11/17/20 History Albuterol Sulfate [Albuterol 2 puff INHALATION RT-Q6H PRN 10/22/20 11/17/20 History Sulfate Hfa] Cholecalciferol [Vitamin D3 (25 25 mcg PO DAILY 10/22/20 11/17/20 History Mcg = 1000 Iu)] amLODIPine [Norvasc] 5 mg PO DAILY 10/22/20 11/17/20 History Furosemide [Lasix] 20 mg PO DAILY 11/17/20 11/17/20 History Allergies Allergy/AdvReac Type Severity Reaction Status Date / Time oxycodone [From Percocet] Allergy Unknown Verified 11/17/20 14:50 codeine AdvReac Nausea & Verified 11/17/20 14:50 Vomiting meperidine HCl [From Demerol] AdvReac Nausea & Verified 11/17/20 14:50 Vomiting morphine AdvReac Nausea & Verified 11/17/20 14:50 Vomiting Physical Exam Vitals: Vital Signs Temp Pulse Pulse Resp BP BP Pulse Ox 11/18/20 08:57 95 11/18/20 08:18 98.0 F 67 16 184/72 97 11/18/20 08:00 67 16 11/18/20 02:00 17 11/18/20 01:50 98.0 F 63 16 156/65 95 11/17/20 20:00 16 11/17/20 18:57 97.7 F 66 16 194/68 96 11/17/20 18:00 73 22 162/68 97 11/17/20 16:30 66 18 163/70 98 11/17/20 16:00 61 12 166/88 96 11/17/20 15:00 59 L 24 150/72 96 11/17/20 14:00 62 20 145/60 97 11/17/20 13:30 69 16 135/101 97 11/17/20 13:11 97.9 F 73 18 135/101 98 Intake and Output 11/17/20 11/18/20 11/18/20 22:59 06:59 14:59 Intake Total 36.644 Balance 36.644 Intake: Intake, IV Titration 36.644 Amount Heparin Sod,Pork in 0.45% 36.644 NaCl 25,000 unit In 0.45 % NaCl 1 250ml.bag @ 12 UNITS/KG/HR 4.79 mls/hr IV .Q24H [facility] Rx#: [id number] Other: Voiding Method Diaper Diaper Diaper Incontinent Incontinent Incontinent # Voids 1 1 1 Weight 39.916 kg PHYSICAL EXAMINATION: This is a 89-year-old female in no apparent distress at the time of my examination. VITAL SIGNS: Blood pressure 184/72, heart rate 67, respirations 16, temp 98F. Patient is 97 % on room air. HEENT: Head is atraumatic, normocephalic. Pupils are equal, round. Sclerae a nicteric. Conjunctivae are clear. Mucous membranes of the mouth are moist. Neck is supple. There is no elevated jugular venous pressure. No carotid bruit is heard. CHEST EXAMINATION: Clear to auscultation bilaterally. No wheezes rales or rhonchi. Respirations even and nonlabored. HEART EXAMINATION: Heart regular, positive S1 and S2. No S3. No S4. Soft systolic murmur at the base. ABDOMEN: Soft, nontender. Bowel sounds are heard. No organomegaly noted. EXTREMITIES: 2+ peripheral pulses with no evidence of peripheral edema and no calf tenderness noted. NEUROLOGIC EXAMINATION: Patient is awake, alert and oriented x3. Results 11/17/20 13:20 11/17/20 13:20 Cardiac Enzymes 11/17/20 11/17/20 11/17/20 Range/Units 13:20 13:20 18:26 AST 23 (14-36) U/L Troponin I <0.012 <0.012 (0.000-0.034) ng/mL 11/17/20 Range/Units 21:38 AST (14-36) U/L Troponin I <0.012 (0.000-0.034) ng/mL Coagulation 11/17/20 11/18/20 11/18/20 Range/Units 13:20 01:01 06:29 PT 10.2 (9.0-12.0) sec APTT 22.3 28.8 42.4 H (22.0-30.0) sec CBC 11/17/20 Range/Units 13:20 WBC 10.6 (3.8-10.6) k/uL RBC 3.67 L (3.80-5.40) m/uL Hgb 10.6 L (11.4-16.0) gm/dL Hct 33.4 L (34.0-46.0) % Plt Count 318 (150-450) k/uL Comprehensive Metabolic Panel 11/17/20 Range/Units 13:20 Sodium 131 L (137-145) mmol/L Potassium 3.6 (3.5-5.1) mmol/L Chloride 96 L (98-107) mmol/L Carbon Dioxide 30 (22-30) mmol/L BUN 20 H (7-17) mg/dL Creatinine 0.85 (0.52-1.04) mg/dL Glucose 136 H (74-99) mg/dL Calcium 9.2 (8.4-10.2) mg/dL AST 23 (14-36) U/L ALT 11 (4-34) U/L Alkaline Phosphatase 85 (38-126) U/L Total Protein 5.9 L (6.3-8.2) g/dL Albumin 3.0 L (3.5-5.0) g/dL Current Medications Generic Name Dose Route Start Last Admin Trade Name Freq PRN Reason Stop Dose Admin Albuterol Sulfate 2.5 mg 11/17/20 17:33 Albuterol Nebulized 2.5 Mg/3 Ml INHALATION RT-Q6H PRN Shortness Of Breath Amlodipine Besylate 5 mg 11/18/20 09:00 11/18/20 07:40 Amlodipine 5 Mg Tab PO 5 mg DAILY [facility] Administration Aspirin 81 mg 11/18/20 09:00 11/18/20 07:40 Aspirin 81 Mg PO 81 mg DAILY [facility] Administration Atorvastatin Calcium 10 mg 11/17/20 21:00 11/17/20 20:49 Atorvastatin 10 Mg Tab PO 10 mg HS [facility] Administration Calcium Carbonate/Glycine 500 mg 11/18/20 09:00 11/18/20 07:39 Calcium Carbonate 500 Mg Chewable PO 500 mg DAILY [facility] Administration Carvedilol 25 mg 11/17/20 21:00 11/18/20 07:40 Carvedilol 12.5 Mg Tab PO 25 mg BID [facility] Administration Cholecalciferol 25 mcg 11/18/20 09:00 11/18/20 07:40 Cholecalciferol 25 Mcg (1000 Iu) Tablet PO 25 mcg DAILY [facility] Administration Clonidine 0.3 mg 11/17/20 21:00 11/18/20 07:41 Clonidine Hcl 0.1 Mg Tab PO 0.3 mg BID [facility] Administration Cyanocobalamin 1,000 mcg 11/18/20 09:00 11/18/20 07:40 Cyanocobalamin 500 Mcg Tab PO 1,000 mcg DAILY [facility] Administration Ezetimibe 10 mg 11/17/20 21:00 11/17/20 20:50 Ezetimibe 10 Mg Tab PO 10 mg HS [facility] Administration Furosemide 20 mg 11/18/20 09:00 11/18/20 07:40 Furosemide 20 Mg Tab PO 20 mg DAILY [facility] Administration Heparin Sodium (Porcine) 0 unit 11/18/20 01:42 11/18/20 01:46 Heparin Sodium 1,000 Un/Ml (10ml Vl) IV 2,000 unit PER PROTOCOL PRN Administration Low PTT Protocol Sodium Chloride 1,000 mls @ 20 mls/hr 11/17/20 17:45 11/17/20 18:05 Saline 0.9% IV 20 mls/hr .Q24H [facility] Administration Isosorbide Mononitrate 30 mg 11/18/20 09:00 11/18/20 07:40 Isosorbide Mononitrate Er 30 Mg Tab.Er.24h PO 30 mg DAILY [facility] Administration Lorazepam 1 mg 11/17/20 21:00 11/17/20 20:50 Lorazepam 1 Mg Tab PO 1 mg HS [facility] Administration Multivitamins 1 each 11/18/20 09:00 11/18/20 07:40 Multivitamins, Thera 1 Each Tab PO 1 each DAILY [facility] Administration Nitroglycerin 0.4 mg 11/17/20 17:32 Nitroglycerin Sl Tabs 0.4 Mg Tab SUBLINGUAL Q5M PRN Chest Pain Nitroglycerin 0.5 inch 11/18/20 00:00 11/18/20 07:40 Nitroglycerin Oint 1 Inch/Gm Packet TOPICAL 0.5 inch Q6HR [facility] Administration Non-Formulary Medication 50 mg 11/18/20 09:00 11/18/20 07:41 Mirabegron [Myrbetriq] PO Not Given DAILY [facility] Intake and Output 11/17/20 11/18/20 11/18/20 22:59 06:59 14:59 Intake Total 36.644 Balance 36.644 Intake: Intake, IV Titration 36.644 Amount Heparin Sod,Pork in 0.45% 36.644 NaCl 25,000 unit In 0.45 % NaCl 1 250ml.bag @ 12 UNITS/KG/HR 4.79 mls/hr IV .Q24H [facility] Rx#: [id number] Other: Voiding Method Diaper Diaper Diaper Incontinent Incontinent Incontinent # Voids 1 1 1 Weight 39.916 kg 11/17/20 13:20 11/17/20 13:20 Assessment and Plan Assessment: #1 symptoms of chest heaviness, acute coronary event has been ruled out, EKG shows no evidence of ischemia and troponins negative 3 #2 history of Takostubo cardiomyopathy with most recent echocardiogram in July showing a normal LV systolic function #3 hypertension, poorly controlled #4 hyperlipidemia Plan: From cardiology's perspective and acute coronary event has been ruled out. We will discontinue IV heparin. We'll increase oral nitrate. Increase the patient's activity. From our standpoint if the patient remains chest pain-free she may be discharged home later today and follow up with Dr. Spaulding in the office. The above dictated assessment and findings were discussed with signing physician. The impression and plan of care have been directed as dictated. Josselni Vidal, Nurse Practitioner, acting as scribe for signing physician.
[2020-11-18] MEDS: ISOSORBIDE MONONITRATE ER 60 MG TAB.ER.24H PO SCH (13:08)
[2020-11-18 14:56] VITALS: BMI 17.7
[2020-11-18] MEDS: SODIUM CHLORIDE 0.9% 1,000 ML IV SCH (15:50)
[2020-11-18 17:06] LABS: Chol/HDL Ratio 1.9; LDL Cholesterol,Calculated 43.8 mg/dL (0.0-131.0); VLDL Calculation 11.2 mg/dL (5.00-40.00)
--- NOTE | 2020-11-18 17:25 | P.HPIM ---
History of Present Illness H&P Date: 11/18/20 Chief Complaint: Chest pain Patient is a 89-year-old female with a known history of hypertension, hyponatremia, history of my, GERD, history of CVA/TIA, previous history of sy ncopal episodes, history of cardiac catheterization and no PCI, anxiety, previous history of smoking presents to ER with complaints of chest tightness/heaviness started yesterday a.m. Patient states that she felt some chest discomfort on the left upper chest and across the chest yesterday morning associated with shortness of breath and dizziness. Patient presents to ER for evaluation. Patient blood pressure was also low with diastolic pressure in 40s which prompted her come to ER as well. Blood pressure in the ER his elevated otherwise. In the ER patient was given Nitropaste the same to improve her symptoms. Patient states that she has been stressful recently. Laboratory data showed WBC 10.6, hemoglobin 10.6, platelets [address] [place] d-dimer 0.79, sodium 131 potassium 3.6 chloride 96 BUN 20 creatinine 2.85 and blood sugar is 136 Troponin 3 negative, proBNP 687, LDL 43, lipase level LVIII CTA chest showed no evidence of PE. Extensive lung abnormalities are due to demonstrative. With extensive endobronchial plugging with scattered tree in bud opacities and groundglass. 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 Recommend pulmonary medicine referral. Findings have slightly worsened from 08/12/2020. Chest x-ray showed no acute cardiopulmonary process. EKG showed normal sinus rhythm with minimal voltage criteria for LVH. Review of Systems Constitutional: Patient denies any fever or chills . No generalized weakness or weight loss. Abdomen: Patient denied nausea vomiting and diarrhea and abdominal pain. Cardiovascular: Patient denies any chest pain or short of breath no palpitations. Respiratory: patient denied any cough is from production. No shortness of breath Neurologic: Patient denied any numbness or tingling headache. Musculoskeletal: Patient denies any complaints of joint swelling or deformity. Skin: Negative Psychiatric: Negative Endocrine: No heat or cold intolerance. No recent weight gain. Genitourinary: No dysuria or hematuria. All other 14 point ROS negative except the above Past Medical History Past Medical History: Chest Pain / Angina, CVA/TIA, GERD/Reflux, Hyperlipidemia, Hypertension, Myocardial Infarction (DC), Pneumonia, Syncope Additional Past Medical History / Comment(s): Past syncopal episodes, TIAs, UTIs, DJD spin, chronic back pain, arthritis hips and back, diverticular disease.urinary incontinence- wears briefs Last Myocardial Infarction Date:: 11/16/2010 History of Any Multi-Drug Resistant Organisms: None Reported Past Surgical History: Adenoidectomy, Appendectomy, Back Surgery, Cholecystectomy, Heart Catheterization, Hysterectomy, Tonsillectomy Additional Past Surgical History / Comment(s): cardiac caths in 2010 and 2013, back fusion/discectomy, colonoscopy, bilateral cataract removal with lens implants, Past Anesthesia/Blood Transfusion Reactions: Postoperative Nausea & Vomiting (PONV) Past Psychological History: Anxiety Additional Psychological History / Comment(s): takes ativan for anxiety Smoking Status: Former smoker Past Alcohol Use History: None Reported Additional Past Alcohol Use History / Comment(s): Pt states she started smoking in 1949 and quit in 1975. She will have an occasional glass of wine. Past Drug Use History: None Reported - Past Family History Father Additional Family Medical History / Comment(s): Father at the age of 57yrs with "heart problems". Mother Additional Family Medical History / Comment(s): Mother had an enlarged heart. She at the age of 79yrs. Medications and Allergies Home Medications Medication Instructions Recorded Confirmed Type Carvedilol 25 mg PO BID 12/18/13 11/17/20 History Isosorbide Mononitrate [Imdur] 30 mg PO DAILY 12/18/13 11/17/20 History Multivitamin/Iron/Folic Acid 1 tab PO DAILY 11/17/15 11/17/20 History [Centrum Complete Multivit Tab] Aspirin EC [Ecotrin Low Dose] 81 mg PO DAILY 09/16/18 11/17/20 History Ezetimibe [Zetia] 10 mg PO HS 12/26/18 11/17/20 History LORazepam [Ativan] 1 mg PO HS 12/26/18 11/17/20 History Simvastatin [Zocor] 20 mg PO HS 12/26/18 11/17/20 History cloNIDine HCL [Catapres] 0.3 mg PO BID 12/26/18 11/17/20 History Calcium Carbonate [Calcium] 600 mg PO DAILY 08/07/20 11/17/20 History Cyanocobalamin (Vitamin B-12) 1,000 mcg PO DAILY 08/07/20 11/17/20 History [Vitamin B-12] Mirabegron [Myrbetriq] 50 mg PO DAILY 08/07/20 11/17/20 History Albuterol Sulfate [Albuterol 2 puff INHALATION RT-Q6H PRN 10/22/20 11/17/20 History Sulfate Hfa] Cholecalciferol [Vitamin D3 (25 25 mcg PO DAILY 10/22/20 11/17/20 History Mcg = 1000 Iu)] amLODIPine [Norvasc] 5 mg PO DAILY 10/22/20 11/17/20 History Furosemide [Lasix] 20 mg PO DAILY 11/17/20 11/17/20 History Allergies Allergy/AdvReac Type Severity Reaction Status Date / Time oxycodone [From Percocet] Allergy Unknown Verified 11/17/20 14:50 codeine AdvReac Nausea & Verified 11/17/20 14:50 Vomiting meperidine HCl [From Demerol] AdvReac Nausea & Verified 11/17/20 14:50 Vomiting morphine AdvReac Nausea & Verified 11/17/20 14:50 Vomiting Physical Exam Vitals: Vital Signs Temp Pulse Pulse Resp BP BP Pulse Ox 11/18/20 08:57 95 11/18/20 08:18 98.0 F 67 16 184/72 97 11/18/20 08:00 67 16 11/18/20 02:00 17 11/18/20 01:50 98.0 F 63 16 156/65 95 11/17/20 20:00 16 11/17/20 18:57 97.7 F 66 16 194/68 96 11/17/20 18:00 73 22 162/68 97 11/17/20 16:30 66 18 163/70 98 11/17/20 16:00 61 12 166/88 96 11/17/20 15:00 59 L 24 150/72 96 11/17/20 14:00 62 20 145/60 97 11/17/20 13:30 69 16 135/101 97 11/17/20 13:11 97.9 F 73 18 135/101 98 Intake and Output 11/17/20 11/18/20 11/18/20 22:59 06:59 14:59 Intake Total 36.644 Balance 36.644 Intake: Intake, IV Titration 36.644 Amount Heparin Sod,Pork in 0.45% 36.644 NaCl 25,000 unit In 0.45 % NaCl 1 250ml.bag @ 12 UNITS/KG/HR 4.79 mls/hr IV .Q24H [facility] Rx#: [id number] Other: Voiding Method Diaper Diaper Diaper Incontinent Incontinent Incontinent # Voids 1 1 1 Weight 39.916 kg PHYSICAL EXAMINATION: Patient is lying in the bed comfortably, no acute distress, awake alert and oriented.. HEENT: Normocephalic. Neck is supple. Pupils reactive. Nostrils clear. Oral cavity is moist. Neck reveals no JVD, carotid bruits, or thyromegaly. CHEST EXAMINATION: Trachea is central. Symmetrical expansion. Bilateral prolon ged air entry. No wheezing or rhonchi CARDIAC: Normal S1, S2 with no gallops. No murmurs ABDOMEN: Soft. Bowel sounds normal. No organomegaly. No abdominal bruits. Extremities: reveal no edema. No clubbing or cyanosis Neurologically awake, alert, oriented x3 with well-coordinated movements. No f ocal deficits noted Skin: No rash or skin lesions. Psychiatric: Coperative. Nonsuicidal Musculoskeletal: No joint swelling or deformity. Normal range of motion. Results CBC & Chem 7: 11/17/20 13:20 11/17/20 13:20 Labs: Abnormal Lab Results - Last 24 Hours (Table) 11/17/20 11/17/20 11/17/20 Range/Units 13:20 13:20 13:20 RBC 3.67 L (3.80-5.40) m/uL Hgb 10.6 L (11.4-16.0) gm/dL Hct 33.4 L (34.0-46.0) % RDW 15.6 H (11.5-15.5) % Neutrophils # 8.5 H (1.3-7.7) k/uL APTT (22.0-30.0) sec D-Dimer 0.79 H (<0.60) mg/L FEU Sodium 131 L (137-145) mmol/L Chloride 96 L (98-107) mmol/L BUN 20 H (7-17) mg/dL Glucose 136 H (74-99) mg/dL Total Protein 5.9 L (6.3-8.2) g/dL Albumin 3.0 L (3.5-5.0) g/dL 11/18/20 Range/Units 06:29 RBC (3.80-5.40) m/uL Hgb (11.4-16.0) gm/dL Hct (34.0-46.0) % RDW (11.5-15.5) % Neutrophils # (1.3-7.7) k/uL APTT 42.4 H (22.0-30.0) sec D-Dimer (<0.60) mg/L FEU Sodium (137-145) mmol/L Chloride (98-107) mmol/L BUN (7-17) mg/dL Glucose (74-99) mg/dL Total Protein (6.3-8.2) g/dL Albumin (3.5-5.0) g/dL Thrombosis Risk Factor Assmnt - DVT/VTE Prophylaxis DVT/VTE Prophylaxis: Pharmacologic Prophylaxis ordered - Choose All That Apply Any of the Below Risk Factors Present?: No Other Risk Factors: Yes Each Risk Factor Represents 3 Points: Age 75 years or older Other congenital or acquired thrombophilia - If yes, enter type in comment: No Thrombosis Risk Factor Assessment Total Risk Factor Score: 3 Thrombosis Risk Factor Assessment Level: Moderate Risk Assessment and Plan Assessment: Chest heaviness and tightness/atypical chest pain rule out ACS. history of Takostubu cardiomyopathy with normalization of LV function as per TTE in July 2020 extensive endobronchial plugging with scattered tree in bud opacities and groundglass. Mucociliary dysfunction versus ABPA Elevated d-dimer level. Without evidence of pulmonary embolism Uncontrolled hypertension Hyperlipidemia History of DC History of previous CVA/TIA Chronic back pain Anxiety Previous history of smoking DVT prophylaxis with heparin subcu Plan: Patient will be continued on telemetry monitoring. Started on heparin drip and serial EKGs and troponins 3. Troponin 3 negative. Patient was placed on Nitropaste in the ER. Cardiology was consulted. Currently heparin drip has been discontinued. Continue with aspirin, statins and blood pressure medications and titrate dose as needed. Due to groundglass opacities and extensive endobronchial plugging, pulmonary was consulted for evaluation. Continue to follow closely and continue with home medications. Time with Patient: Greater than 30
[2020-11-18] MEDS: EZETIMIBE 10 MG TAB PO SCH (20:10)
[2020-11-18] MEDS: LORazepam 1 MG TAB PO SCH (20:10)
[2020-11-18] MEDS: ATORVASTATIN 10 MG TAB PO SCH (20:11)
[2020-11-18 20:51] VITALS: RESP 16
[2020-11-19 02:25] VITALS: TEMP 97.6
[2020-11-19 07:03] VITALS: BP 196/73; PULSE 66
[2020-11-19] MEDS: FUROSEMIDE 20 MG TAB PO SCH (07:04)
[2020-11-19] MEDS: CHOLECALCIFEROL 25 MCG (1000 IU) TABLET PO SCH (07:04)
[2020-11-19] MEDS: cloNIDine HCL 0.1 MG TAB PO SCH (07:04)
[2020-11-19] MEDS: ISOSORBIDE MONONITRATE ER 60 MG TAB.ER.24H PO SCH (07:05)
[2020-11-19] MEDS: CYANOCOBALAMIN 500 MCG TAB PO SCH (07:05)
[2020-11-19] MEDS: carvediloL 12.5 MG TAB PO SCH (07:06)
[2020-11-19] MEDS: amLODIPine 5 MG TAB PO SCH (07:06)
[2020-11-19] MEDS: CALCIUM CARBONATE 500 MG CHEWABLE PO SCH (07:06)
[2020-11-19] MEDS: ASPIRIN 81 MG PO SCH (07:06)
[2020-11-19] MEDS: MULTIVITAMINS, THERA 1 EACH TAB PO SCH (07:06)
[2020-11-19] MEDS: NON FORMULARY DRUG (Mirabegron [Myrbetriq] 50 MG Tab.Er.24h) PO SCH (07:07)
--- NOTE | 2020-11-19 11:42 | P.PN ---
Subjective Progress Note Date: 11/19/20 This is a pleasant 89-year-old female patient who follows with Dr. Spaulding in the office. She has a history of hypertension, hyperlipidemia, Takostubo cardiomyopathy with most recent echocardiogram done in July of this year showing normal LV systolic function with mild AI. She has known mild CAD with cardiac catheterization done in 2013 showing a 20-30% lesion in the proximal to mid LAD. She underwent stress testing with Lexiscan MPI in December 2019 which showed no evidence of ischemia. She presented to the emergency department with complaint of chest heaviness with shortness of breath which started yesterday morning as well as dizziness upon standing. She was prompted to come to the emergency department due to her diastolic blood pressure running in the 40s. The chest heaviness lasted pretty much all day with some decrease in intensity upon arrival to the emergency department. She does verbalize that she's been under increased amount of stress recently and feels that some of her symptoms are related to this. Her is currently in an extended care facility on hospice and her daughters have been having health issues as well. Over the past year she has lost 60 pounds and is planning to follow-up with her PCP soon in this regard. Blood pressure has been elevated since arrival. EKG showed sinus mechanism with no evidence of ischemia. Cardiac enzymes have been unremarkable. Chest x-ray showed no acute cardiopulmonary process. CT of the chest was done due to elevated d-dimer which showed no evidence for pulmonary embolus with extensive lung abnormalities we demonstrated, extensive endobronchial plugging with scattered tree-in-bud Meridian's and groundglass, consider etiologies such as mucosal area dysfunction and ALLERGIC bronchopulmonary aspergillosis, recomme nd pulmonary medicine referral, findings have slightly worsened from 08/12/2020. She was initiated on IV heparin. She is currently on amlodipine 5 mg by mouth daily, aspirin 81 mg by mouth daily, Lipitor 10 mg by mouth daily at bedtime, carvedilol 25 mg by mouth twice a day, clonidine 0.3 mg by mouth twice a day, steady at 10 mg by mouth daily at bedtime, Lasix 20 mg by mouth daily, isosorbide 30 mg by mouth daily. On examination the patient is feeling overall quite a bit better. She continues to have some very minimal chest heaviness but denies any further complaints of shortness of breath or dizziness. She's had no palpitations, syncope or near syncope. She's had no edema orthopnea or PND. 11/19/2020 The patient was seen and examined resting comfortably in bed this morning. She is overall feeling better. She denies any complaints of shortness of breath. She's had no further chest heaviness. Blood pressure remains elevated. She does verbalize that she is getting low readings at home using a wrist cuff. Pulmonary has been consulted due to abnormal CTA. Objective - Vital Signs Vital signs: Vital Signs Temp 97.6 F 11/19/20 07:00 Pulse 66 11/19/20 07:00 Resp 16 11/19/20 07:00 BP 196/73 11/19/20 07:00 Pulse Ox 95 11/19/20 07:00 Intake & Output 11/18/20 11/19/20 11/19/20 18:59 06:59 18:59 Weight 39.916 kg Other: Voiding Method Diaper Diaper Incontinent Incontinent # Voids 3 1 - Exam HEENT: Head is atraumatic, normocephalic. Pupils are equal, round. Sclerae anicteric. Conjunctivae are clear. Mucous membranes of the mouth are moist. Neck is supple. There is no elevated jugular venous pressure. No carotid bruit is heard. CHEST EXAMINATION: Clear to auscultation bilaterally. No wheezes rales or rhonchi. Respirations even and nonlabored. HEART EXAMINATION: Heart regular, positive S1 and S2. No S3. No S4. Soft systolic murmur at the base. ABDOMEN: Soft, nontender. Bowel sounds are heard. No organomegaly noted. EXTREMITIES: 2+ peripheral pulses with no evidence of peripheral edema and no calf tenderness noted. NEUROLOGIC EXAMINATION: Patient is awake, alert and oriented x3 - Labs CBC & Chem 7: 11/17/20 13:20 11/17/20 13:20 Labs: Abnormal Lab Results - Last 24 Hours (Table) 11/18/20 Range/Units 06:29 HDL Cholesterol 61.0 H (40.0-60.0) mg/dL Assessment and Plan Assessment: #1 symptoms of chest heaviness, acute coronary event has been ruled out, EKG shows no evidence of ischemia and troponins negative 3 #2 history of Takostubo cardiomyopathy with most recent echocardiogram in July showing a normal LV systolic function #3 hypertension, poorly controlled #4 hyperlipidemia Plan: From cardiology's perspective and acute coronary event has been ruled out. We will increase amlodipine. Discussed with the patient the need to check the accuracy of her home blood pressure monitor. She will bring this to her next appointment with Dr. Spaulding. From our standpoint if the patient remains chest pain-free she may be discharged home later today and follow up with Dr. Spaulding in the office. The above dictated assessment and findings were discussed with signing physician. The impression and plan of care have been directed as dictated. Josselin Vidal, Nurse Practitioner, acting as scribe for signing physician.
--- NOTE | 2020-11-19 11:56 | P.CNPUL ---
History of Present Illness Consult date: 11/19/20 Reason for consult: chest pain History of present illness: 89-year-old female patient, presented to the hospital because of chest pain. The pain was across her left upper chest area. She has chronic shortness of breath. No hemoptysis. No pleurisy. She was investigated by cardiology regarding this chest pain. Troponin 2 was negative. ProBNP level was nonelevated. Chest x-ray showed no active abnormalities. EKG was sinus. No EKG ischemic changes. CT angiogram showed noted and some pulmonary embolism. There was some chronic bronchiectatic changes in the upper lobes bilaterally along with some limited groundglass and no other infiltrates. . These abnormalities were present on previous CAT scans from 09/24/2017. [facility] for some pneumonia. 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 The patient underwent a bronchoscopy and the cultures came back positive for Pseudomonas. The patient was treated accordingly with antibiotics and the patient was discharged home. The bronchial washing was essentially negative for malignancy. The acid-fast was also negative for any microbial or mycobacterial growth. No reported aspiration. She is on no oxygen for now. She is a nonsmoker. She has had episodic yearly pneumonias most of them were treated on outpatient basis. No exposure to TB. No exposure to COVID-19. She has lost weight over the years and she has lost a pproximately 50 pounds Review of Systems Constitutional: Patient denies any fever or chills . No generalized weakness or weight loss. Abdomen: Patient denied nausea vomiting and diarrhea and abdominal pain. Cardiovascular: Patient denies any chest pain or short of breath no palpitations. Respiratory: patient denied any cough is from production. No shortness of breath Neurologic: Patient denied any numbness or tingling headache. Musculoskeletal: Patient denies any complaints of joint swelling or deformity. Skin: Negative Psychiatric: Negative Endocrine: No heat or cold intolerance. No recent weight gain. Genitourinary: No dysuria or hematuria. All other 14 point ROS negative except the above Past Medical History Past Medical History: Chest Pain / Angina, CVA/TIA, GERD/Reflux, Hyperlipidemia, Hypertension, Myocardial Infarction (DC), Pneumonia, Syncope Additional Past Medical History / Comment(s): Past syncopal episodes, TIAs, UTIs, DJD spin, chronic back pain, arthritis hips and back, diverticular disease.urinary incontinence- wears briefs Last Myocardial Infarction Date:: 11/16/2010 History of Any Multi-Drug Resistant Organisms: None Reported Past Surgical History: Adenoidectomy, Appendectomy, Back Surgery, Cholecystectomy, Heart Catheterization, Hysterectomy, Tonsillectomy Additional Past Surgical History / Comment(s): cardiac caths in 2010 and 2013, back fusion/discectomy, colonoscopy, bilateral cataract removal with lens implants, Past Anesthesia/Blood Transfusion Reactions: Postoperative Nausea & Vomiting (PONV) Past Psychological History: Anxiety Additional Psychological History / Comment(s): takes ativan for anxiety Smoking Status: Former smoker Past Alcohol Use History: None Reported Additional Past Alcohol Use History / Comment(s): Pt states she started smoking in 1949 and quit in 1975. She will have an occasional glass of wine. Past Drug Use History: None Reported - Past Family History Father Additional Family Medical History / Comment(s): Father at the age of 57yrs with "heart problems". Mother Additional Family Medical History / Comment(s): Mother had an enlarged heart. She at the age of 79yrs. Medications and Allergies Home Medications Medication Instructions Recorded Confirmed Type Carvedilol 25 mg PO BID 12/18/13 11/17/20 History Isosorbide Mononitrate [Imdur] 30 mg PO DAILY 12/18/13 11/17/20 History Multivitamin/Iron/Folic Acid 1 tab PO DAILY 11/17/15 11/17/20 History [Centrum Complete Multivit Tab] Aspirin EC [Ecotrin Low Dose] 81 mg PO DAILY 09/16/18 11/17/20 History Ezetimibe [Zetia] 10 mg PO HS 12/26/18 11/17/20 History LORazepam [Ativan] 1 mg PO HS 12/26/18 11/17/20 History Simvastatin [Zocor] 20 mg PO HS 12/26/18 11/17/20 History cloNIDine HCL [Catapres] 0.3 mg PO BID 12/26/18 11/17/20 History Calcium Carbonate [Calcium] 600 mg PO DAILY 08/07/20 11/17/20 History Cyanocobalamin (Vitamin B-12) 1,000 mcg PO DAILY 08/07/20 11/17/20 History [Vitamin B-12] Mirabegron [Myrbetriq] 50 mg PO DAILY 08/07/20 11/17/20 History Albuterol Sulfate [Albuterol 2 puff INHALATION RT-Q6H PRN 10/22/20 11/17/20 History Sulfate Hfa] Cholecalciferol [Vitamin D3 (25 25 mcg PO DAILY 10/22/20 11/17/20 History Mcg = 1000 Iu)] amLODIPine [Norvasc] 5 mg PO DAILY 10/22/20 11/17/20 History Furosemide [Lasix] 20 mg PO DAILY 11/17/20 11/17/20 History Allergies Allergy/AdvReac Type Severity Reaction Status Date / Time oxycodone [From Percocet] Allergy Unknown Verified 11/17/20 14:50 codeine AdvReac Nausea & Verified 11/17/20 14:50 Vomiting meperidine HCl [From Demerol] AdvReac Nausea & Verified 11/17/20 14:50 Vomiting morphine AdvReac Nausea & Verified 11/17/20 14:50 Vomiting Physical Exam Vitals: Vital Signs Temp Pulse Resp BP Pulse Ox 11/19/20 07:00 97.6 F 66 16 196/73 95 11/19/20 01:41 16 11/19/20 01:40 97.6 F 69 16 150/73 96 11/18/20 20:00 16 11/18/20 19:49 98.0 F 80 16 189/68 97 11/18/20 17:32 95 11/18/20 15:00 98.1 F 66 17 132/61 95 11/18/20 14:00 67 16 Intake and Output 11/18/20 11/19/20 11/19/20 22:59 06:59 14:59 Other: Voiding Method Diaper Diaper Incontinent Incontinent # Voids 2 1 Results Gen. appearance she is calm and comfortable and she is not in acute respiratory distress and she is currently on room air oxygen. Head exam was generally normal. There was no scleral icterus or corneal arcus. Mucous membranes were moist. HEENT: Head is atraumatic, normocephalic. Pupils are equal, round. Sclerae anicteric. Conjunctivae are clear. Mucous membranes of the mouth are moist. Neck is supple. There is no elevated jugular venous pressure. No carotid bruit is heard. CHEST EXAMINATION: Clear to auscultation bilaterally. No wheezes rales or rhonchi. Respirations even and nonlabored. The patient has thoracic kyphoscoliosis HEART EXAMINATION: Heart regular, positive S1 and S2. No S3. No S4. Soft systolic murmur at the base. ABDOMEN: Soft, nontender. Bowel sounds are heard. No organomegaly noted. EXTREMITIES: 2+ peripheral pulses with no evidence of peripheral edema and no calf tenderness noted. NEUROLOGIC EXAMINATION: Patient is awake, alert and oriented x3. - Laboratory Findings CBC and BMP: 11/17/20 13:20 11/17/20 13:20 PT/INR, D-dimer PT 10.2 sec (9.0-12.0) 11/17/20 13:20 INR 0.9 (<1.2) 11/17/20 13:20 D-Dimer 0.79 mg/L FEU (<0.60) H 11/17/20 13:20 Abnormal lab findings: Abnormal Labs 11/17/20 11/17/20 11/17/20 13:20 13:20 13:20 RBC 3.67 L Hgb 10.6 L Hct 33.4 L RDW 15.6 H Neutrophils # 8.5 H APTT D-Dimer 0.79 H Sodium 131 L Chloride 96 L BUN 20 H Glucose 136 H Total Protein 5.9 L Albumin 3.0 L HDL Cholesterol 11/18/20 11/18/20 06:29 06:29 RBC Hgb Hct RDW Neutrophils # APTT 42.4 H D-Dimer Sodium Chloride BUN Glucose Total Protein Albumin HDL Cholesterol 61.0 H - Diagnostic Findings Chest x-ray: image reviewed CT scan - chest: image reviewed Assessment and Plan Plan: 1 chronic bronchiectasis involving the upper lobes bilaterally more so on the right addition to some chronic no other changes and areas of groundglass opacity. Previous bronchoscopy done on 08/14/2020 revealed pseudomonas aeruginosa. Microbial cultures were negative for atypical mycobacterial infection. Fungal infections were also negative. Malignancy was also negative. Is likely a chronic finding rates to previous pneumonias. Malignancy is highly doubtful. She has been either colonized or infected with Pseudomonas based on a previous cultures. Currently, there are no signs of any acute infection and there is no interval progression of these abnormalities. This can be followed especially at her age and comorbid conditions 2 suspected COPD 3 chest pain currently under investigation. 4 hypertension 5 hyperlipidemia 6 previous history of CVA/TIA 7 chronic back pain 8 anxiety. 9 remote history of smoking and the patient quit smoking back in the 70s. Plan use albuterol as needed for any cough or congestion. No need for for antibiotics this point in time. No signs of any superinfection. The patient's most recent bronchoscopy and the bronchioloalveolar lavage yielded no fungal growth or mycobacterial growth. She is been colonized/infected with pseudomonas in the past. This is something to watch for. We'll be glad to see her in outpatient basis. No need for any further intervention at this point in time. She is good for discharge from the pulmonary standpoint. CAT scan of the chest was reviewed.
[2020-11-19] MEDS ORDERED: amLODIPine 5 MG TAB PO SCH (21:00)
== END 2020-11-19 14:08 | disposition home or self-care (01) ==
LOC: EC 13:10 → 6NMEDSUR 17:32
PROVIDERS: ADMIT Internal Medicine; ATTEND Internal Medicine
DX: R07.2 Precordial pain (principal); R91.8 Other nonspecific abnormal finding of lung field; R42 Dizziness and giddiness; I10 Essential (primary) hypertension; I42.9 Cardiomyopathy, unspecified; G89.29 Other chronic pain; M54.9 Dorsalgia, unspecified; F41.9 Anxiety disorder, unspecified; I25.10 Atherosclerotic heart disease of native coronary artery without angina pectoris; J43.9 Emphysema, unspecified; E78.5 Hyperlipidemia, unspecified; I25.2 Old myocardial infarction; K21.9 Gastro-esophageal reflux disease without esophagitis; K57.90 Diverticulosis of intestine, part unspecified, without perforation or abscess without bleeding; R79.89 Other specified abnormal findings of blood chemistry; M19.90 Unspecified osteoarthritis, unspecified site; R32 Unspecified urinary incontinence; Z79.82 Long term (current) use of aspirin; Z79.899 Other long term (current) drug therapy; Z88.5 Allergy status to narcotic agent; Z98.1 Arthrodesis status; Z90.710 Acquired absence of both cervix and uterus; Z87.01 Personal history of pneumonia (recurrent); Z98.41 Cataract extraction status, right eye; Z98.42 Cataract extraction status, left eye; Z96.1 Presence of intraocular lens; Z86.73 Personal history of transient ischemic attack (TIA), and cerebral infarction without residual deficits; Z87.891 Personal history of nicotine dependence; Z90.49 Acquired absence of other specified parts of digestive tract; Z82.49 Family history of ischemic heart disease and other diseases of the circulatory system
CPT/HCPCS: 99285; 96376; 96366 ×2; 96361; 96365; 36415; 94760; 93005; 85379; 83880; 80061; 80053; 82550; 83690; 83735; 84484; 85025; 85610; 85730 ×2; 71046; 71275; G0378 ×3; J1644 ×3; Q9967

== ENCOUNTER 2021-07-07 12:30 | Emergency (ER) | payer BC, MEDICARE ==
--- NOTE | 2021-07-07 13:21 | ED ---
General Adult HPI - General Chief complaint: Shortness of Breath Stated complaint: SOB, poss pneumonia Time Seen by Provider: 07/07/21 12:30 Source: patient, family, RN notes reviewed, old records reviewed Mode of arrival: ambulatory Limitations: no limitations - History of Present Illness Initial comments: This is an 89-year-old female presents emergency Department stating for the last few days she's been coughing and coughing up quite a bit of sputum. She went to see her doctor 2 days ago and he started on Zithromax. Patient states she continues to cough and continues to be reducible a lot of sputum so she felt more weak so she came to the emergency department per her doctor's instructions. Patient denies any fever chills. Patient states she has had the COVID vaccine and booster. Patient denies any abdominal pain patient denies nausea vomiting. Patient states her chest hurts when she coughs but only when she coughs. Patient denies any swelling to legs or calf tenderness. Patient states she is mildly short of breath. - Related Data Home Medications Medication Instructions Recorded Confirmed Carvedilol 25 mg PO BID 12/18/13 07/07/21 Multivitamin/Iron/Folic Acid 1 tab PO DAILY 11/17/15 07/07/21 [Centrum Complete Multivit Tab] Aspirin EC [Ecotrin Low Dose] 81 mg PO DAILY 09/16/18 07/07/21 Ezetimibe [Zetia] 10 mg PO DAILY 12/26/18 07/07/21 LORazepam [Ativan] 1 mg PO HS 12/26/18 07/07/21 Simvastatin [Zocor] 20 mg PO HS 12/26/18 07/07/21 cloNIDine HCL [Catapres] 0.3 mg PO BID 12/26/18 07/07/21 Calcium Carbonate [Calcium] 600 mg PO DAILY 08/07/20 07/07/21 Cyanocobalamin (Vitamin B-12) 1,000 mcg PO DAILY 08/07/20 07/07/21 [Vitamin B-12] Mirabegron [Myrbetriq] 50 mg PO DAILY 08/07/20 07/07/21 Cholecalciferol [Vitamin D3 (25 25 mcg PO DAILY 10/22/20 07/07/21 Mcg = 1000 Iu)] amLODIPine [Norvasc] 5 mg PO DAILY 10/22/20 07/07/21 Azithromycin [Zithromax Z-pack (6 See Taper PO DAILY 07/07/21 07/07/21 tabs)] Prednisolone Acetate/Pf 1 drop RIGHT EYE QID 07/07/21 07/07/21 [Prednisolone Acet 1% Eye Drop] Previous Rx's Medication Instructions Recorded Amoxicillin/Potassium Clav 1 each PO Q12HR #14 tab 07/07/21 [Augmentin 875-125 Tablet] Allergies Allergy/AdvReac Type Severity Reaction Status Date / Time oxycodone [From Percocet] Allergy Unknown Verified 07/07/21 13:12 codeine AdvReac Nausea & Verified 07/07/21 13:12 Vomiting meperidine HCl [From Demerol] AdvReac Nausea & Verified 07/07/21 13:12 Vomiting morphine AdvReac Nausea & Verified 07/07/21 13:12 Vomiting Review of Systems ROS Statement: Those systems with pertinent positive or pertinent negative responses have been documented in the HPI. ROS Other: All systems not noted in ROS Statement are negative. Past Medical History Past Medical History: Chest Pain / Angina, CVA/TIA, GERD/Reflux, Hyperlipidemia, Hypertension, Myocardial Infarction (ND), Pneumonia, Syncope Additional Past Medical History / Comment(s): Past syncopal episodes, TIAs, UTI s, DJD spin, chronic back pain, arthritis hips and back, diverticular disease.urinary incontinence- wears briefs Last Myocardial Infarction Date:: 11/16/2010 History of Any Multi-Drug Resistant Organisms: None Reported Past Surgical History: Adenoidectomy, Appendectomy, Back Surgery, Cholecystectomy, Heart Catheterization, Hysterectomy, Tonsillectomy Additional Past Surgical History / Comment(s): cardiac caths in 2010 and 2013, back fusion/discectomy, colonoscopy, bilateral cataract removal with lens implants, Past Anesthesia/Blood Transfusion Reactions: Postoperative Nausea & Vomiting (PONV) Past Psychological History: Anxiety Smoking Status: Never smoker Past Alcohol Use History: None Reported Past Drug Use History: None Reported - Past Family History Father Additional Family Medical History / Comment(s): Father at the age of 57yrs with "heart problems". Mother Additional Family Medical History / Comment(s): Mother had an enlarged heart. She at the age of 79yrs. General Exam - General Exam Comments Initial Comments: GENERAL: Patient is well-developed and well-nourished. Patient is nontoxic and well- hydrated and is in mild distress. ENT: Neck is soft and supple. No significant lymphadenopathy is noted. Oropharynx is clear. Moist mucous membranes. Neck has full range of motion without eliciting any pain. EYES: The sclera were anicteric and conjunctiva were pink and moist. Extraocular movements were intact and pupils were equal round and reactive to light. Eyelids were unremarkable. PULMONARY: Unlabored respirations. Good breath sounds bilaterally. No audible rales rhonc hi or wheezing was noted. CARDIOVASCULAR: Slight crackles in the left upper lobe ABDOMEN: Soft and nontender with normal bowel sounds. SKIN: Skin is clear with no lesions or rashes and otherwise unremarkable. NEUROLOGI Patient is alert and oriented x3. Cranial nerves II through XII are grossly intact. Motor and sensory are also intact. Normal speech, volume and content. Symmetrical smile. MUSCULOSKELETAL: Normal extremities with adequate strength and full range of motion. No lower extremity swelling or edema. No calf tenderness. LYMPHATICS: No significant lymphadenopathy is noted PSYCHIATRIC: Normal psychiatric evaluation. Limitations: no limitations Course Vital Signs 07/07/21 07/07/21 07/07/21 12:32 16:54 17:02 Temperature 97.6 F Pulse Rate 91 96 93 Respiratory 20 Rate Blood Pressure 217/79 O2 Sat by Pulse 96 Oximetry Medical Decision Making - Medical Decision Making EKG shows sinus rhythm with occasional PVC at 81 bpm [place] interval 172 QRS is 96 QT interval 377 QTC is 4:15. Patient's EKG shows no ST segment elevation or depression. Chest x-ray shows no acute abnormality. Patient received a [facility] emergency department. Patient's vaccination was in the high 90s throughout her course without oxygen. Patient received 20 of hydralazine for her high blood pressure because she did not take any of her medications this morning. After the patient was discharged and felt good to go home she called me back in because she was feeling anxious. Patient received some Ativan and a breathing treatment. After about an hour I will back and reevaluate her she felt good enough to go home and was no longer short of breath. Family was with her will be taking her home. - Lab Data Result diagrams: 07/07/21 13:35 07/07/21 13:35 Lab Results 07/07/21 07/07/21 07/07/21 Range/Units 13:35 13:35 13:35 WBC 8.7 (3.8-10.6) k/uL RBC 3.70 L (3.80-5.40) m/uL Hgb 11.5 (11.4-16.0) gm/dL Hct 34.6 (34.0-46.0) % MCV 93.6 (80.0-100.0) fL MCH 31.1 (25.0-35.0) pg MCHC 33.2 (31.0-37.0) g/dL RDW 14.1 (11.5-15.5) % Plt Count 316 (150-450) k/uL MPV 7.1 Neutrophils % 80 % Lymphocytes % 10 % Monocytes % 5 % Eosinophils % 3 % Basophils % 1 % Neutrophils # 6.9 (1.3-7.7) k/uL Lymphocytes # 0.9 L (1.0-4.8) k/uL Monocytes # 0.4 (0-1.0) k/uL Eosinophils # 0.3 (0-0.7) k/uL Basophils # 0.1 (0-0.2) k/uL PT 10.8 (9.0-12.0) sec INR 1.0 (<1.2) APTT 23.9 (22.0-30.0) sec D-Dimer (<0.60) mg/L FEU Sodium 135 L (137-145) mmol/L Potassium 2.9 L (3.5-5.1) mmol/L Chloride 98 (98-107) mmol/L Carbon Dioxide 33 H (22-30) mmol/L Anion Gap 4 mmol/L BUN 16 (7-17) mg/dL Creatinine 1.03 (0.52-1.04) mg/dL Est GFR (CKD-EPI)AfAm 56 (>60 ml/min/1.73 sqM) Est GFR (CKD-EPI)NonAf 49 (>60 ml/min/1.73 sqM) Glucose 112 H (74-99) mg/dL Plasma Lactic Acid Romeo (0.7-2.0) mmol/L Calcium 9.1 (8.4-10.2) mg/dL Total Bilirubin 0.3 (0.2-1.3) mg/dL AST 25 (14-36) U/L ALT 12 (4-34) U/L Alkaline Phosphatase 86 (38-126) U/L Total Protein 7.2 (6.3-8.2) g/dL Albumin 3.4 L (3.5-5.0) g/dL Coronavirus (PCR) (Not Detectd) 07/07/21 07/07/21 07/07/21 Range/Units 13:35 13:35 14:50 WBC (3.8-10.6) k/uL RBC (3.80-5.40) m/uL Hgb (11.4-16.0) gm/dL Hct (34.0-46.0) % MCV (80.0-100.0) fL MCH (25.0-35.0) pg MCHC (31.0-37.0) g/dL RDW (11.5-15.5) % Plt Count (150-450) k/uL MPV Neutrophils % % Lymphocytes % % Monocytes % % Eosinophils % % Basophils % % Neutrophils # (1.3-7.7) k/uL Lymphocytes # (1.0-4.8) k/uL Monocytes # (0-1.0) k/uL Eosinophils # (0-0.7) k/uL Basophils # (0-0.2) k/uL PT (9.0-12.0) sec INR (<1.2) APTT (22.0-30.0) sec D-Dimer 0.62 H (<0.60) mg/L FEU Sodium (137-145) mmol/L Potassium (3.5-5.1) mmol/L Chloride (98-107) mmol/L Carbon Dioxide (22-30) mmol/L Anion Gap mmol/L BUN (7-17) mg/dL Creatinine (0.52-1.04) mg/dL Est GFR (CKD-EPI)AfAm (>60 ml/min/1.73 sqM) Est GFR (CKD-EPI)NonAf (>60 ml/min/1.73 sqM) Glucose (74-99) mg/dL Plasma Lactic Acid Romeo 0.7 (0.7-2.0) mmol/L Calcium (8.4-10.2) mg/dL Total Bilirubin (0.2-1.3) mg/dL AST (14-36) U/L ALT (4-34) U/L Alkaline Phosphatase (38-126) U/L Total Protein (6.3-8.2) g/dL Albumin (3.5-5.0) g/dL Coronavirus (PCR) Not Detected (Not Detectd) Disposition Clinical Impression: Acute bronchitis Disposition: HOME SELF-CARE Instructions (If sedation given, give patient instructions): Acute Bronchitis (ED) Prescriptions: Amoxicillin/Potassium Clav [Augmentin 875-125 Tablet] 1 each PO Q12HR #14 tab Is patient prescribed a controlled substance at d/c from ED?: No Referrals: Uri Chaudhary MD [Primary Care Provider] - 1-2 days Time of Disposition: 15:05
[2021-07-07 13:56] LABS: Basophils # (A) 0.1 k/uL (0-0.2); Basophils % (A) 1 %; Eosinophils # (A) 0.3 k/uL (0-0.7); Eosinophils % (A) 3 %; HCT 34.6 % (34.0-46.0); HGB 11.5 gm/dL (11.4-16.0); Lymphocytes # (A) 0.9 k/uL (1.0-4.8); Lymphocytes % (A) 10 %; MCH 31.1 pg (25.0-35.0); MCHC 33.2 g/dL (31.0-37.0); MCV 93.6 fL (80.0-100.0); Mean Platelet Volume 7.1; Monocytes # (A) 0.4 k/uL (0-1.0); Monocytes % (A) 5 %; Neutrophils # (A) 6.9 k/uL (1.3-7.7); Neutrophils % (A) 80 %; Platelet Count 316 k/uL (150-450); RDW 14.1 % (11.5-15.5); WBC 8.7 k/uL (3.8-10.6)
--- NOTE | 2021-07-07 13:56 | XR ---
EXAMINATION TYPE: XR chest 2V DATE OF EXAM: 07/07/2021 COMPARISON: 11/17/20 HISTORY: Shortness of breath TECHNIQUE: Frontal and lateral views of the chest are obtained. FINDINGS: Scattered senescent parenchymal changes noted. Hyperinflation compatible with COPD. No evidence for infiltrate. No evidence for atelectasis. Stable increased upper lobe markings. Heart size is stable. Mediastinal structures are stable and grossly unremarkable. No evidence for hilar prominence. Degenerative changes dorsal spine. IMPRESSION: 1. No evidence for acute pulmonary disease.
[2021-07-07 14:05] LABS: Albumin 3.4 g/dL (3.5-5.0); Calcium 9.1 mg/dL (8.4-10.2); Potassium 2.9 mmol/L (3.5-5.1); Total Bilirubin 0.3 mg/dL (0.2-1.3); Total Protein 7.2 g/dL (6.3-8.2)
[2021-07-07 14:13] LABS: Partial Thromboplastin Time 23.9 sec (22.0-30.0); Prothrombin Time 10.8 sec (9.0-12.0)
[2021-07-07] MEDS ORDERED: POTASSIUM CHLORIDE 10 MEQ in WATER FOR INJECTION 1 100ML.BAG IVPB STA (14:38)
[2021-07-07] MEDS ORDERED: POTASSIUM CHLORIDE ER 20 MEQ TAB.ER PO STA (14:38)
[2021-07-07] MEDS: SODIUM CHLORIDE 0.9% 500 ML 500 ML IV SCH (14:43)
[2021-07-07] MEDS ORDERED: hydrALAZINE HCL 20 MG/ML 1 ML VIAL IVP STA (15:23)
[2021-07-07] MEDS ORDERED: LORazepam 2 MG/ML INJ IV STA (16:06)
[2021-07-07] MEDS ORDERED: LABETALOL 5 MG/ML VIAL MDV IVP STA (16:32)
[2021-07-07] MEDS ORDERED: IPRATROPIUM-ALBUTEROL 3 ML NEB INHALATION STA (16:32)
[2021-07-07 17:57] VITALS: RESP 18; TEMP 97.5
[2021-07-07 18:51] VITALS: BP 192/84; PULSE 80
== END 2021-07-07 18:53 | disposition home or self-care (01) ==
LOC: EC 12:30
DX: J20.9 Acute bronchitis, unspecified (principal); I10 Essential (primary) hypertension; I25.2 Old myocardial infarction; I25.10 Atherosclerotic heart disease of native coronary artery without angina pectoris; Z20.822 Contact with and (suspected) exposure to COVID-19; Z86.73 Personal history of transient ischemic attack (TIA), and cerebral infarction without residual deficits; Z79.82 Long term (current) use of aspirin; Z88.5 Allergy status to narcotic agent; Z88.6 Allergy status to analgesic agent
CPT/HCPCS: 36415; 94640; 93005; 85379; 80053; 83605; 85025; 85610; 85730; 87040; 87635; 71046; 99285; 96365; 96367; 96375; J2060; J0360; J0696; J3480

== ENCOUNTER 2021-07-08 17:04 | Observation (INO) | payer MEDICARE ==
--- NOTE | 2021-07-08 17:34 | ED ---
General Adult HPI - General Chief complaint: Dizziness Stated complaint: dizziness Time Seen by Provider: 07/08/21 17:05 Source: EMS Mode of arrival: EMS Limitations: no limitations - History of Present Illness Initial comments: Dictation was produced using [employer] dictation software. please excuse any grammatical, word or spelling errors. Chief Complaint: 89-year-old female multiple colon disease presents emergency department for dizziness and feelings of dyspnea. History of Present Illness: Patient is a 89-year-old female shows brought in by EMS from home. Patient states that since the passing of her she's been having these strange episodes where she feels like she can't breathe. She feels like she was unable to get air. She was seen here in emergency department yesterday and diagnosed with bronchitis. More to the emergency department she had high blood pressure measured 220/101. Yesterday she had elevated blood pressures as well. She takes multiple medications for her blood pressures. Patient states she is asymptomatic at this time. Denies any numbness distally paresthesias. Denies any chest pain. She is not short of breath at the bedside. Patient is asymptomatic currently. The ROS documented in this emergency department record has been reviewed and confirmed by me. Those systems with pertinent positive or negative responses have been documented in the HPI. All other systems are other negative and/or noncontributory. PHYSICAL EXAM: General Impression: Alert and oriented x3, not in acute distress HEENT: Normocephalic atraumatic, extra-ocular movements intact, pupils equal and reactive to light bilaterally, mucous membranes moist. Cardiovascular: Heart regular rate and rhythm Chest: Able to complete full sentences, no retractions, no tachypnea Abdomen: abdomen soft, non-tender, non-distended, no organomegaly Musculoskeletal: Pulses present and equal in all extremities, no peripheral edema Motor: no focal deficits noted Neurological: CN II-XII grossly intact, no focal motor or sensory deficits noted Skin: Intact with no visualized rashes Psych: Normal affect and mood ED course: 89-year-old well-appearing female presents to the emergency department out of episode of shortness of breath patient is also on of high blood pressure en route to the emergency department by EMS. no complaints at the bedside currently. Vital signs upon arrival shows blood pressure 149/94, re st of vital signs within acceptable limits. Daughter is at the bedside states the patient has been having frequent anxiety reactions at home. She was given a Ativan prior to arrival. Daughters report that patient becomes significantly anxious complaint of episodic dyspnea. Laboratory evaluation obtained. CBC unremarkable. Metabolic panel within acceptable limits per troponin is elevated 0.02 for premature peptide 1390. Chest x-ray is nonacute. Patient reevaluated at bedside at 7:10 PM found to be in stable medical condition. Given patient's slightly elevated troponin there is concern for cardiac process. Patient given labetalol for her elevated blood pressure. 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 Patient be admitted with consultation to cardiology. EKG interpretation: Ventricular rate 92, sinus rhythm,. 174, care is 84, QTC 45. No ME prolongation, no QTC prolongation, no ST or T-wave changes noted. Overall, this EKG is unremarkable - Related Data Home Medications Medication Instructions Recorded Confirmed Carvedilol 25 mg PO DIRECTED 12/18/13 07/08/21 Multivitamin/Iron/Folic Acid 1 tab PO DAILY 11/17/15 07/08/21 [Centrum Complete Multivit Tab] Aspirin EC [Ecotrin Low Dose] 81 mg PO DAILY 09/16/18 07/08/21 Ezetimibe [Zetia] 10 mg PO HS 12/26/18 07/08/21 LORazepam [Ativan] 1 mg PO HS 12/26/18 07/08/21 Simvastatin [Zocor] 20 mg PO HS 12/26/18 07/08/21 cloNIDine HCL [Catapres] 0.3 mg PO BID 12/26/18 07/08/21 Calcium Carbonate [Calcium] 600 mg PO DAILY 08/07/20 07/08/21 Cyanocobalamin (Vitamin B-12) 1,000 mcg PO DAILY 08/07/20 07/08/21 [Vitamin B-12] Mirabegron [Myrbetriq] 50 mg PO HS 08/07/20 07/08/21 Cholecalciferol [Vitamin D3 (25 25 mcg PO DAILY 10/22/20 07/08/21 Mcg = 1000 Iu)] amLODIPine [Norvasc] 5 mg PO DIRECTED 10/22/20 07/08/21 Azithromycin [Zithromax Z-pack (6 See Taper PO DAILY 07/07/21 07/08/21 tabs)] Prednisolone Acetate/Pf 1 drop RIGHT EYE QID 07/07/21 07/08/21 [Prednisolone Acet 1% Eye Drop] Amoxicillin/Potassium Clav 1 tab PO Q12HR 07/08/21 07/08/21 [Augmentin 875-125 Tablet] Allergies Allergy/AdvReac Type Severity Reaction Status Date / Time oxycodone [From Percocet] Allergy Unknown Verified 07/08/21 17:40 codeine AdvReac Nausea & Verified 07/08/21 17:40 Vomiting meperidine HCl [From Demerol] AdvReac Nausea & Verified 07/08/21 17:40 Vomiting morphine AdvReac Nausea & Verified 07/08/21 17:40 Vomiting Review of Systems ROS Statement: Those systems with pertinent positive or pertinent negative responses have been documented in the HPI. ROS Other: All systems not noted in ROS Statement are negative. Past Medical History Past Medical History: Chest Pain / Angina, CVA/TIA, GERD/Reflux, Hyperlipidemia, Hypertension, Myocardial Infarction ([place]), Pneumonia, Syncope Additional Past Medical History / Comment(s): Past syncopal episodes, TIAs, UTIs, DJD spin, chronic back pain, arthritis hips and back, diverticular disease.urinary incontinence- wears briefs Last Myocardial Infarction Date:: 11/16/2010 History of Any Multi-Drug Resistant Organisms: None Reported Past Surgical History: Adenoidectomy, Appendectomy, Back Surgery, Cholecystectomy, Heart Catheterization, Hysterectomy, Tonsillectomy Additional Past Surgical History / Comment(s): cardiac caths in 2010 and 2013, back fusion/discectomy, colonoscopy, bilateral cataract removal with lens implants, Past Anesthesia/Blood Transfusion Reactions: Postoperative Nausea & Vomiting (PONV) Past Psychological History: Anxiety Smoking Status: Never smoker Past Alcohol Use History: None Reported Past Drug Use History: None Reported - Past Family History Father Additional Family Medical History / Comment(s): Father at the age of 57yrs with "heart problems". Mother Additional Family Medical History / Comment(s): Mother had an enlarged heart. She at the age of 79yrs. General Exam Limitations: no limitations Course Vital Signs 07/08/21 07/08/21 17:06 18:50 Temperature 97.8 F Pulse Rate 96 Respiratory 18 Rate Blood Pressure 149/94 188/90 O2 Sat by Pulse 95 Oximetry Medical Decision Making - Lab Data Result diagrams: 07/08/21 18:07 07/08/21 18:07 Lab Results 07/08/21 07/08/21 07/08/21 Range/Units 18:07 18:07 18:07 WBC 11.3 H (3.8-10.6) k/uL RBC 3.70 L (3.80-5.40) m/uL Hgb 11.4 (11.4-16.0) gm/dL Hct 34.7 (34.0-46.0) % MCV 93.8 (80.0-100.0) fL MCH 30.9 (25.0-35.0) pg MCHC 32.9 (31.0-37.0) g/dL RDW 13.8 (11.5-15.5) % Plt Count 310 (150-450) k/uL MPV 8.3 Neutrophils % 72 % Lymphocytes % 15 % Monocytes % 8 % Eosinophils % 3 % Basophils % 1 % Neutrophils # 8.2 H (1.3-7.7) k/uL Lymphocytes # 1.7 (1.0-4.8) k/uL Monocytes # 0.9 (0-1.0) k/uL Eosinophils # 0.4 (0-0.7) k/uL Basophils # 0.1 (0-0.2) k/uL Sodium 135 L (137-145) mmol/L Potassium 3.3 L (3.5-5.1) mmol/L Chloride 100 (98-107) mmol/L Carbon Dioxide 28 (22-30) mmol/L Anion Gap 7 mmol/L BUN 16 (7-17) mg/dL Creatinine 0.73 (0.52-1.04) mg/dL Est GFR (CKD-EPI)AfAm 85 (>60 ml/min/1.73 sqM) Est GFR (CKD-EPI)NonAf 74 (>60 ml/min/1.73 sqM) Glucose 115 H (74-99) mg/dL Calcium 8.8 (8.4-10.2) mg/dL Total Bilirubin 0.4 (0.2-1.3) mg/dL AST 29 (14-36) U/L ALT 13 (4-34) U/L Alkaline Phosphatase 86 (38-126) U/L Troponin I 0.024 (0.000-0.034) ng/mL NT-Pro-B Natriuret Pep pg/mL Total Protein 7.0 (6.3-8.2) g/dL Albumin 3.3 L (3.5-5.0) g/dL 07/08/21 Range/Units 18:07 WBC (3.8-10.6) k/uL RBC (3.80-5.40) m/uL Hgb (11.4-16.0) gm/dL Hct (34.0-46.0) % MCV (80.0-100.0) fL MCH (25.0-35.0) pg MCHC (31.0-37.0) g/dL RDW (11.5-15.5) % Plt Count (150-450) k/uL MPV Neutrophils % % Lymphocytes % % Monocytes % % Eosinophils % % Basophils % % Neutrophils # (1.3-7.7) k/uL Lymphocytes # (1.0-4.8) k/uL Monocytes # (0-1.0) k/uL Eosinophils # (0-0.7) k/uL Basophils # (0-0.2) k/uL Sodium (137-145) mmol/L Potassium (3.5-5.1) mmol/L Chloride (98-107) mmol/L Carbon Dioxide (22-30) mmol/L Anion Gap mmol/L BUN (7-17) mg/dL Creatinine (0.52-1.04) mg/dL Est GFR (CKD-EPI)AfAm (>60 ml/min/1.73 sqM) Est GFR (CKD-EPI)NonAf (>60 ml/min/1.73 sqM) Glucose (74-99) mg/dL Calcium (8.4-10.2) mg/dL Total Bilirubin (0.2-1.3) mg/dL AST (14-36) U/L ALT (4-34) U/L Alkaline Phosphatase (38-126) U/L Troponin I (0.000-0.034) ng/mL NT-Pro-B Natriuret Pep 1390 pg/mL Total Protein (6.3-8.2) g/dL Albumin (3.5-5.0) g/dL Disposition Clinical Impression: Dyspnea Disposition: ADMITTED IP TO THIS HOSP Condition: Fair Referrals: Uri Chaudhary MD [Primary Care Provider] - 1-2 days
[2021-07-08 18:14] LABS: Basophils # (A) 0.1 k/uL (0-0.2); Basophils % (A) 1 %; Eosinophils # (A) 0.4 k/uL (0-0.7); Eosinophils % (A) 3 %; HCT 34.7 % (34.0-46.0); HGB 11.4 gm/dL (11.4-16.0); Lymphocytes # (A) 1.7 k/uL (1.0-4.8); Lymphocytes % (A) 15 %; MCH 30.9 pg (25.0-35.0); MCHC 32.9 g/dL (31.0-37.0); MCV 93.8 fL (80.0-100.0); Mean Platelet Volume 8.3; Monocytes # (A) 0.9 k/uL (0-1.0); Monocytes % (A) 8 %; Neutrophils # (A) 8.2 k/uL (1.3-7.7); Neutrophils % (A) 72 %; Platelet Count 310 k/uL (150-450); RDW 13.8 % (11.5-15.5); WBC 11.3 k/uL (3.8-10.6)
[2021-07-08 18:23] LABS: Albumin 3.3 g/dL (3.5-5.0); Calcium 8.8 mg/dL (8.4-10.2); Potassium 3.3 mmol/L (3.5-5.1); Total Bilirubin 0.4 mg/dL (0.2-1.3)
--- NOTE | 2021-07-08 18:37 | XR ---
EXAMINATION TYPE: XR chest 1V portable DATE OF EXAM: 07/08/2021 COMPARISON: 07/07/2021 HISTORY: Dizziness TECHNIQUE: Single view FINDINGS: Heart is normal. There is some patchy infiltrate in the mid and upper lung bang. Thoracic aorta is atheromatous. There are chest leads. Costophrenic angles are clear. IMPRESSION: Patchy bilateral chronic upper lobe infiltrates consistent with pulmonary fibrosis and no t changed compared to yesterday. No heart failure. Atheromatous aorta.
[2021-07-08] MEDS ORDERED: LABETALOL 5 MG/ML VIAL MDV IVP STA (19:10)
[2021-07-08] MEDS ORDERED: ASPIRIN 81 MG PO STA (19:11)
[2021-07-08] MEDS ORDERED: ALPRAZolam 0.25 MG TAB PO PRN (19:13)
[2021-07-08] MEDS ORDERED: NITROGLYCERIN SL TABS 0.4 MG TAB SUBLINGUAL PRN (19:13)
[2021-07-08] MEDS: cloNIDine HCL 0.1 MG TAB PO SCH (23:19)
[2021-07-08] MEDS: LORazepam 1 MG TAB PO SCH (23:20)
[2021-07-09] MEDS: cloNIDine HCL 0.1 MG TAB PO SCH ×2 (07:18→20:52)
[2021-07-09] MEDS: ASPIRIN 81 MG PO SCH (07:54)
[2021-07-09] MEDS: carvediloL 12.5 MG TAB PO SCH ×2 (08:41→17:13)
[2021-07-09] MEDS: amLODIPine 5 MG TAB PO SCH (08:41)
--- NOTE | 2021-07-09 08:51 | P.HPIM ---
History of Present Illness H&P Date: 07/09/21 Chief Complaint: Dizziness This is a history and physical an 82-year-old white female with known history of hypertension and hyperlipidemia and probable element of malnutrition. I saw the patient in office last week and she was complaining of intermittent dizziness. I did tell her that this could be related to poor nutritional status as well as hydration. She states these episodes became worse and now she is admitted for element of dizziness. No overt chest pressure. No anginal equivalent. Swallowing study to be done tomorrow. Review of Systems All systems: negative Past Medical History Past Medical History: Chest Pain / Angina, CVA/TIA, GERD/Reflux, Hyperlipidemia, Hypertension, Myocardial Infarction ([place]), Pneumonia, Syncope Additional Past Medical History / Comment(s): Past syncopal episodes, TIAs, UTIs, DJD spin, chronic back pain, arthritis hips and back, diverticular disease.urinary incontinence- wears briefs Last Myocardial Infarction Date:: 11/16/2010 History of Any Multi-Drug Resistant Organisms: None Reported Past Surgical History: Adenoidectomy, Appendectomy, Back Surgery, Cholecystectomy, Heart Catheterization, Hysterectomy, Tonsillectomy Additional Past Surgical History / Comment(s): cardiac caths in 2010 and 2013, back fusion/discectomy, colonoscopy, bilateral cataract removal with lens implants, Past Anesthesia/Blood Transfusion Reactions: Postoperative Nausea & Vomiting (PONV) Past Psychological History: Anxiety Additional Psychological History / Comment(s): takes ativan for anxiety Smoking Status: Never smoker Past Alcohol Use History: None Reported Additional Past Alcohol Use History / Comment(s): Pt states she started smoking in 1950 and quit in 1975. She will have an occasional glass of wine. Past Drug Use History: None Reported - Past Family History Father Additional Family Medical History / Comment(s): Father at the age of 57yrs with "heart problems". Mother Additional Family Medical History / Comment(s): Mother had an enlarged heart. She at the age of 79yrs. Medications and Allergies Home Medications Medication Instructions Recorded Confirmed Type Carvedilol 25 mg PO DIRECTED 12/18/13 07/08/21 History Multivitamin/Iron/Folic Acid 1 tab PO DAILY 11/17/15 07/08/21 History [Centrum Complete Multivit Tab] Aspirin EC [Ecotrin Low Dose] 81 mg PO DAILY 09/16/18 07/08/21 History Ezetimibe [Zetia] 10 mg PO HS 12/26/18 07/08/21 History LORazepam [Ativan] 1 mg PO HS 12/26/18 07/08/21 History Simvastatin [Zocor] 20 mg PO HS 12/26/18 07/08/21 History cloNIDine HCL [Catapres] 0.3 mg PO BID 12/26/18 07/08/21 History Calcium Carbonate [Calcium] 600 mg PO DAILY 08/07/20 07/08/21 History Cyanocobalamin (Vitamin B-12) 1,000 mcg PO DAILY 08/07/20 07/08/21 History [Vitamin B-12] Mirabegron [Myrbetriq] 50 mg PO HS 08/07/20 07/08/21 History Cholecalciferol [Vitamin D3 (25 25 mcg PO DAILY 10/22/20 07/08/21 History Mcg = 1000 Iu)] amLODIPine [Norvasc] 5 mg PO DIRECTED 10/22/20 07/08/21 History Azithromycin [Zithromax Z-pack (6 See Taper PO DAILY 07/07/21 07/08/21 History tabs)] Prednisolone Acetate/Pf 1 drop RIGHT EYE QID 07/07/21 07/08/21 History [Prednisolone Acet 1% Eye Drop] Amoxicillin/Potassium Clav 1 tab PO Q12HR 07/08/21 07/08/21 History [Augmentin 875-125 Tablet] Allergies Allergy/AdvReac Type Severity Reaction Status Date / Time oxycodone [From Percocet] Allergy Unknown Verified 07/08/21 17:40 codeine AdvReac Nausea & Verified 07/08/21 17:40 Vomiting meperidine HCl [From Demerol] AdvReac Nausea & Verified 07/08/21 17:40 Vomiting morphine AdvReac Nausea & Verified 07/08/21 17:40 Vomiting Physical Exam Vitals: Vital Signs Temp Pulse Pulse Resp BP BP Pulse Ox 07/09/21 07:00 98.1 F 74 20 192/80 95 07/09/21 02:00 98.2 F 71 17 158/79 94 L 07/08/21 22:00 98.1 F 76 16 208/82 95 07/08/21 20:15 69 16 166/89 95 07/08/21 19:43 71 16 190/83 95 07/08/21 18:50 188/90 07/08/21 17:06 97.8 F 96 18 149/94 95 Intake and Output 07/08/21 07/09/21 07/09/21 22:59 06:59 14:59 Other: # Voids 1 1 Weight 39.463 kg - Constitutional General appearance: thin - EENT Eyes: no abnormal pupil - Neck Neck: no lymphadenopathy - Respiratory Respiratory: bilateral: CTA - Cardiovascular Rhythm: regular Heart sounds: normal: S1, S2 Abnormal Heart Sounds: no S3 Gallop - Gastrointestinal General gastrointestinal: soft, no tenderness - Integumentary Integumentary: no cellulitis Results CBC & Chem 7: 07/08/21 18:07 07/08/21 18:07 Labs: Abnormal Lab Results - Last 24 Hours (Table) 07/08/21 07/08/21 Range/Units 18:07 18:07 WBC 11.3 H (3.8-10.6) k/uL RBC 3.70 L (3.80-5.40) m/uL Neutrophils # 8.2 H (1.3-7.7) k/uL Sodium 135 L (137-145) mmol/L Potassium 3.3 L (3.5-5.1) mmol/L Glucose 115 H (74-99) mg/dL Albumin 3.3 L (3.5-5.0) g/dL Assessment and Plan (1) Dizziness Current Visit: Yes Status: Acute Code(s): R42 - DIZZINESS AND GIDDINESS SNOMED Code(s): 107964364 (2) Mild malnutrition Current Visit: Yes Status: Acute Code(s): E44.1 - MILD PROTEIN-CALORIE MALNUTRITION SNOMED Code(s): 09199758 (3) At risk for readmission to hospital Current Visit: No Status: Acute Code(s): Z91.89 - OTH PERSONAL RISK FACTORS, NOT ELSEWHERE CLASSIFIED SNOMED Code(s): 1242631246469 Plan: Appreciate cardiology input. Reconcile medications. Multiple comorbidities. See orders otherwise. Anticipate discharge in next 24 hours if stabilizing. Dietary counseling.
[2021-07-09] MEDS ORDERED: ASPIRIN 325 MG TAB PO SCH (09:00)
--- NOTE | 2021-07-09 09:03 | P.CRDCN ---
History of Present Illness History of present illness: HISTORY OF PRESENTING ILLNESS This is a pleasant 89-year-old female patient who follows with Dr. Spaulding in the office. She has a history of hypertension, hyperlipidemia, Takostubo cardiomyopathy with most recent echocardiogram done in July 2020 showing normal LV systolic function with mild AI, mild non-obstructive CAD with cardiac catheterization done in 2013 showing a 20-30% lesion in the proximal to mid LAD. She presented to the emergency department with complaint of episodes of shortness of breath, cough and feels as if she cannot breathe. She describes these as having a panic attack. She states she was recently diagnosed with Bronchitis a few days ago. She states when these episodes occurs she feels short of breath, has some dizziness and then it will slowly subside. She denies any chest pain, lightheadedness, syncope or near syncope, no symptoms of orthopnea, PND, lower extremity edema. She sleeps with 1 pillow. Patient BP was elevated on admission 188/90 DIAGNOSTICS EKG reveals sinus tachycardia, heart rate 92, LVH, right atrial enlargement, no significant ST-abnormalities suggest ischemia. Prior EKG was similar findings. Telemetry tracings indicate sinus mechanism She underwent stress testing with Lexiscan MPI in December 2019 which showed no evidence of ischemia. Chest xray patchy bilateral chronic upper lobe infiltrates consistent with pulmonary fibrosis, no heart failure, atheromatous aorta. Laboratory reviewed, troponin negative 3, proBNP 1390, sodium 135, potassium 2.3, BUN 16, serum crit 0.7, albumin 3.3, WBC 11.3, platelets 310, hemoglobin 11 .4 Current cardiac medications include clonidine 0.3 mg twice a day, amlodipine 5 mg daily, ezetimibe 10 mg nightly, carvedilol 25 mg twice a day, aspirin 81 mg daily Most recent echocardiogram 07/2020 revealed an EF of 60-65%, mild aortic regurgitation, mild aortic stenosis with peak/mean gradient of 17/10 mmHg, mild pulmonary hypertension REVIEW OF SYSTEMS At the time of my exam: CONSTITUTIONAL: Denies fever or chills. CARDIOVASCULAR: Denies chest pain, shortness of breath, orthopnea, PND or palpitations. RESPIRATORY: Reports cough. GASTROINTESTINAL: Denies abdominal pain, diarrhea, constipation, nausea or vomiting. MUSCULOSKELETAL: Denies myalgias. NEUROLOGIC: Denies numbness, tingling, headacbe or weakness. ENDOCRINE: Denies fatigue, weight change, polydipsia or polyurina. GENITOURINARY: Denies burning, hematuria or urgency with micturation. HEMATOLOGIC: Denies history of anemia or bleeding. PHYSICAL EXAMINATION Blood pressure 192/80, heart rate 74, afebrile, oxygen saturation is 95% on room air CONSTITUTIONAL: No apparent distress. HEENT: Head is normocephalic. Pupils are equal, round. Sclerae anicteric. Mucous membranes of the mouth are moist. No JVD. No carotid bruit. CHEST EXAMINATION: Lungs are clear to auscultation. No chest wall tenderness is noted on palpation or with deep breathing. HEART EXAMINATION: Regular rate and rhythm. S1, S2 heard. No murmurs, gallops or rub. ABDOMEN: Soft, nontender. Positive bowel sounds. EXTREMITIES: 2+ peripheral pulses, no lower extremity edema and no calf tenderness. NEUROLOGIC EXAMINATION: Patient is awake, alert and oriented x3. ASSESSMENT Episode of shortness of breath and dizziness, resolved Recent diagnosis of bronchitis Hypertension Hyperlipidemia Histoy of Takotsubo cardiomyopathy in 2010 with recovery of EF Mild non-obstructive Coronary artery disease PLAN Obtain 2D echocardiogram and doppler study to assess cardiac structure and function. From a cardiology perspective, acute coronary syndrome has been ruled out, patient does not appear to be in acute heart failure. Continue home aspirin, amlodipine, statin, clonidine, zetia, carvedilol If echocardiogram with no acute findings, no further inpatient workup from a cardiology perspective. Nurse practitioner note has been reviewed by physician. Signing provider agrees with the documented findings, assessment, and plan of care. Past Medical History Past Medical History: Chest Pain / Angina, CVA/TIA, GERD/Reflux, Hyperlipidemia, Hypertension, Myocardial Infarction ([place]), Pneumonia, Syncope Additional Past Medical History / Comment(s): Past syncopal episodes, TIAs, UTIs, DJD spin, chronic back pain, arthritis hips and back, diverticular disease.urinary incontinence- wears briefs Last Myocardial Infarction Date:: 11/16/2010 History of Any Multi-Drug Resistant Organisms: None Reported Past Surgical History: Adenoidectomy, Appendectomy, Back Surgery, Cholecystectomy, Heart Catheterization, Hysterectomy, Tonsillectomy Additional Past Surgical History / Comment(s): cardiac caths in 2010 and 2013, back fusion/discectomy, colonoscopy, bilateral cataract removal with lens implants, Past Anesthesia/Blood Transfusion Reactions: Postoperative Nausea & Vomiting (PONV) Past Psychological History: Anxiety Additional Psychological History / Comment(s): takes ativan for anxiety Smoking Status: Never smoker Past Alcohol Use History: None Reported Additional Past Alcohol Use History / Comment(s): Pt states she started smoking in 1949 and quit in 1975. She will have an occasional glass of wine. Past Drug Use History: None Reported - Past Family History Father Additional Family Medical History / Comment(s): Father at the age of 57yrs with "heart problems". Mother Additional Family Medical History / Comment(s): Mother had an enlarged heart. She at the age of 79yrs. Medications and Allergies Home Medications Medication Instructions Recorded Confirmed Type Carvedilol 25 mg PO DIRECTED 12/18/13 07/08/21 History Multivitamin/Iron/Folic Acid 1 tab PO DAILY 11/17/15 07/08/21 History [Centrum Complete Multivit Tab] Aspirin EC [Ecotrin Low Dose] 81 mg PO DAILY 09/16/18 07/08/21 History Ezetimibe [Zetia] 10 mg PO HS 12/26/18 07/08/21 History LORazepam [Ativan] 1 mg PO HS 12/26/18 07/08/21 History Simvastatin [Zocor] 20 mg PO HS 12/26/18 07/08/21 History cloNIDine HCL [Catapres] 0.3 mg PO BID 12/26/18 07/08/21 History Calcium Carbonate [Calcium] 600 mg PO DAILY 08/07/20 07/08/21 History Cyanocobalamin (Vitamin B-12) 1,000 mcg PO DAILY 08/07/20 07/08/21 History [Vitamin B-12] Mirabegron [Myrbetriq] 50 mg PO HS 08/07/20 07/08/21 History Cholecalciferol [Vitamin D3 (25 25 mcg PO DAILY 10/22/20 07/08/21 History Mcg = 1000 Iu)] amLODIPine [Norvasc] 5 mg PO DIRECTED 10/22/20 07/08/21 History Azithromycin [Zithromax Z-pack (6 See Taper PO DAILY 07/07/21 07/08/21 History tabs)] Prednisolone Acetate/Pf 1 drop RIGHT EYE QID 07/07/21 07/08/21 History [Prednisolone Acet 1% Eye Drop] Amoxicillin/Potassium Clav 1 tab PO Q12HR 07/08/21 07/08/21 History [Augmentin 875-125 Tablet] Allergies Allergy/AdvReac Type Severity Reaction Status Date / Time oxycodone [From Percocet] Allergy Unknown Verified 07/08/21 17:40 codeine AdvReac Nausea & Verified 07/08/21 17:40 Vomiting meperidine HCl [From Demerol] AdvReac Nausea & Verified 07/08/21 17:40 Vomiting morphine AdvReac Nausea & Verified 07/08/21 17:40 Vomiting Physical Exam Vitals: Vital Signs Temp Pulse Pulse Resp BP BP Pulse Ox 07/09/21 02:00 98.2 F 71 17 158/79 94 L 07/08/21 22:00 98.1 F 76 16 208/82 95 07/08/21 20:15 69 16 166/89 95 07/08/21 19:43 71 16 190/83 95 07/08/21 18:50 188/90 07/08/21 17:06 97.8 F 96 18 149/94 95 Intake and Output 07/08/21 07/09/21 07/09/21 22:59 06:59 14:59 Other: # Voids 1 1 Weight 39.463 kg Results 07/08/21 18:07 07/08/21 18:07 Cardiac Enzymes 07/08/21 07/08/21 07/08/21 Range/Units 18:07 18:07 22:24 AST 29 (14-36) U/L Troponin I 0.024 0.026 (0.000-0.034) ng/mL 07/08/21 Range/Units 23:42 AST (14-36) U/L Troponin I 0.027 (0.000-0.034) ng/mL CBC 07/08/21 Range/Units 18:07 WBC 11.3 H (3.8-10.6) k/uL RBC 3.70 L (3.80-5.40) m/uL Hgb 11.4 (11.4-16.0) gm/dL Hct 34.7 (34.0-46.0) % Plt Count 310 (150-450) k/uL Comprehensive Metabolic Panel 07/08/21 Range/Units 18:07 Sodium 135 L (137-145) mmol/L Potassium 3.3 L (3.5-5.1) mmol/L Chloride 100 (98-107) mmol/L Carbon Dioxide 28 (22-30) mmol/L BUN 16 (7-17) mg/dL Creatinine 0.73 (0.52-1.04) mg/dL Glucose 115 H (74-99) mg/dL Calcium 8.8 (8.4-10.2) mg/dL AST 29 (14-36) U/L ALT 13 (4-34) U/L Alkaline Phosphatase 86 (38-126) U/L Total Protein 7.0 (6.3-8.2) g/dL Albumin 3.3 L (3.5-5.0) g/dL Current Medications Generic Name Dose Route Start Last Admin Trade Name Freq PRN Reason Stop Dose Admin Alprazolam 0.25 mg 07/08/21 19:13 Alprazolam 0.25 Mg Tab PO QID PRN Anxiety Aspirin 325 mg 07/09/21 09:00 07/09/21 07:18 Aspirin 325 Mg Tab PO 325 mg DAILY LUCITA Administration Clonidine 0.3 mg 07/08/21 23:15 07/09/21 07:18 Clonidine Hcl 0.1 Mg Tab PO 0.3 mg BID LUCITA Administration Lorazepam 1 mg 07/08/21 23:15 07/08/21 23:20 Lorazepam 1 Mg Tab PO 1 mg HS LUCITA Administration Nitroglycerin 0.4 mg 07/08/21 19:13 Nitroglycerin Sl Tabs 0.4 Mg Tab SUBLINGUAL Q5M PRN Chest Pain Intake and Output 07/08/21 07/09/21 07/09/21 22:59 06:59 14:59 Other: # Voids 1 1 Weight 39.463 kg 07/08/21 18:07 07/08/21 18:07
[2021-07-09 09:50] LABS: Chol/HDL Ratio 1.83 Ratio; LDL Cholesterol,Calculated 50.6 mg/dL (0.0-131.0)
--- NOTE | 2021-07-09 11:22 | ECHOF ---
Referral Reason:shortness of breath MEASUREMENTS -------- HEIGHT: 154.9 cm WEIGHT: 39.5 kg BP: IVSd: 1.1 cm (0.6 - 1.1) LVIDd: 2.1 cm (3.9 - 5.3) LVPWd: 1.2 cm (0.6 - 1.1) IVSs: 1.2 cm LVIDs: 1.6 cm LVPWs: 1.6 cm LAESV Index (A-L): 28.53 ml/m Ao Diam: 3.4 cm (2.0 - 3.7) AV Cusp: 1.4 cm (1.5 - 2.6) LA Diam: 2.5 cm (2.7 - 3.8) MV EXCURSION: 17.354 mm (> 18.000) MV EF SLOPE: 62 mm/s (70 - 150) EPSS: 2.4 cm MV E Devendra: 0.80 m/s MV DecT: 370 ms MV A Devendra: 1.02 m/s MV E/A Ratio: 0.79 AV maxP.25 mmHg AV meanP.56 mmHg AR PHT: 743 ms RAP: 5.00 mmHg RVSP: 23.93 mmHg FINDINGS -------- This was a technically adequate study. The left ventricular size is normal. Left ventricular wall thickness is normal. Overall left vent ricular systolic function is normal with, an EF between 55 - 60 %. Normal LAP Grade 1 Diastolic Dys function. The right ventricle is normal in size. The left atrial size is normal. Normal LA size by volume 22+/-6 ml/m2. The right atrial size is normal. Aortic valve is trileaflet and is moderately thickened. There is mild aortic regurgitation. There is mild aortic stenosis present. Peak/mean gradient across the Aortic Valve is 21.25mmHg / 12.56mm Hg. The mitral valve is normal. The mitral valve leaflets are mildly thickened. Mild mitral annular c alcification present. Mild mitral regurgitation is present. [id number] mitral stenosis. The tricuspid valve appears structurally normal. Mild tricuspid regurgitation present. Right vent ricular systolic pressure is normal at < 35 mmHg. There is no pulmonic regurgitation present. The aortic root size is normal. Normal inferior vena cava with normal inspiratory collapse consistent with estimated right atrial pre ssure of 5 mmHg. There is no pericardial effusion. CONCLUSIONS -------- 1. The left ventricular size is normal. 2. Left ventricular wall thickness is normal. 3. Overall left ventricular systolic function is normal with, an EF between 55 - 60 %. 4. Normal LAP Grade 1 Diastolic Dysfunction. 5. Aortic valve is trileaflet and is moderately thickened. 6. There is mild aortic regurgitation. 7. There is mild aortic stenosis present. 8. Peak/mean gradient across the Aortic Valve is 21.25mmHg / 12.56mmHg. 9. The mitral valve leaflets are mildly thickened. 10. Mild mitral annular calcification present. 11. Mild mitral regurgitation is present. 12. [id number] mitral stenosis. 13. Mild tricuspid regurgitation present. 14. There is no pericardial effusion. BIG DATA DEVELOPER: Imelda Yuen RDCS
[2021-07-09 14:25] VITALS: BMI 16.4
[2021-07-09] MEDS: LORazepam 1 MG TAB PO SCH (20:52)
[2021-07-09] MEDS ORDERED: EZETIMIBE 10 MG TAB PO SCH (21:00)
[2021-07-09] MEDS ORDERED: ATORVASTATIN 10 MG TAB PO SCH (21:00)
[2021-07-10 02:33] VITALS: RESP 16
[2021-07-10 07:02] VITALS: BP 163/62; PULSE 76; TEMP 98.2
[2021-07-10] MEDS: carvediloL 12.5 MG TAB PO SCH (08:08)
[2021-07-10] MEDS: amLODIPine 5 MG TAB PO SCH (08:08)
[2021-07-10] MEDS: cloNIDine HCL 0.1 MG TAB PO SCH (08:08)
[2021-07-10] MEDS: ASPIRIN 81 MG PO SCH (08:08)
--- NOTE | 2021-07-10 08:21 | P.DS ---
Providers Date of admission: 07/08/21 19:13 Attending physician: Uri Chaudhary Consults: 07/08/21 19:13 Consult Physician Urgent Consulting Provider: Doyle Arriaza Consult Reason/Comments: suspect cardiomyopathy, elevated troponin Do you want consulting provider notified?: Yes Primary care physician: Uri Chaudhary - Discharge Diagnosis(es) (1) Dizziness Current Visit: Yes Status: Acute (2) Mild malnutrition Current Visit: Yes Status: Acute (3) At risk for readmission to hospital Current Visit: No Status: Acute Hospital Course: This is a discharge summary an 82-year-old white female essentially admitted for chest pain and weakness. Cardiology cleared the patient. She is struggling with malnutrition suspect her dizziness is related to this. Dietary counseling was done at length while she was here. Question element of anxiety. She was discharged in stable condition to follow-up with me in about a week. Prognosis guarded secondary to advancing age and slow decline Patient Condition at Discharge: Fair Plan - Discharge Summary New Discharge Prescriptions: Continue RX: Carvedilol 25 mg PO DIRECTED RX: Multivitamin/Iron/Folic Acid [Centrum Complete Multivit Tab] 1 tab PO DAILY RX: Aspirin EC [Ecotrin Low Dose] 81 mg PO DAILY RX: Simvastatin [Zocor] 20 mg PO HS RX: cloNIDine HCL [Catapres] 0.3 mg PO BID RX: LORazepam [Ativan] 1 mg PO HS RX: Ezetimibe [Zetia] 10 mg PO HS RX: Mirabegron [Myrbetriq] 50 mg PO HS RX: Cyanocobalamin (Vitamin B-12) [Vitamin B-12] 1,000 mcg PO DAILY RX: Calcium Carbonate [Calcium] 600 mg PO DAILY RX: Amoxicillin/Potassium Clav [Augmentin 875-125 Tablet] 1 tab PO Q12HR RX: amLODIPine [Norvasc] 5 mg PO DIRECTED RX: Cholecalciferol [Vitamin D3 (25 Mcg = 1000 Iu)] 25 mcg PO DAILY RX: Azithromycin [Zithromax Z-pack (6 tabs)] See Taper PO DAILY RX: Prednisolone Acetate/Pf [Prednisolone Acet 1% Eye Drop] 1 drop RIGHT EYE QID Discharge Medication List RX: Carvedilol 25 mg PO DIRECTED 12/18/13 [History] RX: Multivitamin/Iron/Folic Acid [Centrum Complete Multivit Tab] 1 tab PO DAILY 11/17/15 [History] RX: Aspirin EC [Ecotrin Low Dose] 81 mg PO DAILY 09/16/18 [History] RX: Ezetimibe [Zetia] 10 mg PO HS 12/26/18 [History] RX: LORazepam [Ativan] 1 mg PO HS 12/26/18 [History] RX: Simvastatin [Zocor] 20 mg PO HS 12/26/18 [History] RX: cloNIDine HCL [Catapres] 0.3 mg PO BID 12/26/18 [History] RX: Calcium Carbonate [Calcium] 600 mg PO DAILY 08/07/20 [History] RX: Cyanocobalamin (Vitamin B-12) [Vitamin B-12] 1,000 mcg PO DAILY 08/07/20 [History] RX: Mirabegron [Myrbetriq] 50 mg PO HS 08/07/20 [History] RX: Cholecalciferol [Vitamin D3 (25 Mcg = 1000 Iu)] 25 mcg PO DAILY 10/22/20 [History] RX: amLODIPine [Norvasc] 5 mg PO DIRECTED 10/22/20 [History] RX: Azithromycin [Zithromax Z-pack (6 tabs)] See Taper PO DAILY 07/07/21 [History] RX: Prednisolone Acetate/Pf [Prednisolone Acet 1% Eye Drop] 1 drop RIGHT EYE QID 07/07/21 [History] RX: Amoxicillin/Potassium Clav [Augmentin 875-125 Tablet] 1 tab PO Q12HR 07/08/21 [History] Follow up Appointment(s)/Referral(s): Uri Chaudhary MD [Primary Care Provider] - 1-2 days Oz Spaulding MD [STAFF PHYSICIAN] - 1 Week
== END 2021-07-10 10:02 | disposition home or self-care (01) ==
LOC: EC 17:04 → 6NMEDSUR 19:13
PROVIDERS: ADMIT Family Medicine; ATTEND Family Medicine
DX: R42 Dizziness and giddiness (principal); E44.1 Mild protein-calorie malnutrition; R79.89 Other specified abnormal findings of blood chemistry; F41.9 Anxiety disorder, unspecified; J40 Bronchitis, not specified as acute or chronic; I10 Essential (primary) hypertension; I08.3 Combined rheumatic disorders of mitral, aortic and tricuspid valves; E78.5 Hyperlipidemia, unspecified; G89.29 Other chronic pain; M54.9 Dorsalgia, unspecified; R32 Unspecified urinary incontinence; M47.819 Spondylosis without myelopathy or radiculopathy, site unspecified; K57.90 Diverticulosis of intestine, part unspecified, without perforation or abscess without bleeding; I25.2 Old myocardial infarction; K21.9 Gastro-esophageal reflux disease without esophagitis; M16.0 Bilateral primary osteoarthritis of hip; I70.0 Atherosclerosis of aorta; I25.10 Atherosclerotic heart disease of native coronary artery without angina pectoris; F41.0 Panic disorder [episodic paroxysmal anxiety]; R00.0 Tachycardia, unspecified; R91.8 Other nonspecific abnormal finding of lung field; Z79.82 Long term (current) use of aspirin; Z79.899 Other long term (current) drug therapy; Z88.5 Allergy status to narcotic agent; Z71.3 Dietary counseling and surveillance; Z86.73 Personal history of transient ischemic attack (TIA), and cerebral infarction without residual deficits; Z87.891 Personal history of nicotine dependence; Z87.01 Personal history of pneumonia (recurrent); Z87.440 Personal history of urinary (tract) infections; Z90.49 Acquired absence of other specified parts of digestive tract; Z90.710 Acquired absence of both cervix and uterus; Z98.1 Arthrodesis status; Z98.42 Cataract extraction status, left eye; Z98.41 Cataract extraction status, right eye; Z96.1 Presence of intraocular lens; Z98.890 Other specified postprocedural states; Z82.49 Family history of ischemic heart disease and other diseases of the circulatory system
CPT/HCPCS: 96374; 99285; 36415; 93005; 93306; 83880; 80061; 80053; 84484; 85025; 71045; G0378 ×3

== ENCOUNTER 2021-08-15 19:47 | Emergency (ER) | payer MEDICARE ==
[2021-08-15 20:11] VITALS: TEMP 98.3
--- NOTE | 2021-08-15 20:15 | ED ---
General Adult HPI - General Chief complaint: Chest Pain Stated complaint: Chest Pain Time Seen by Provider: 08/15/21 20:10 Source: patient, EMS, RN notes reviewed, old records reviewed Mode of arrival: EMS - History of Present Illness Initial comments: 89-year-old female presents to the emergency room via EMS with complaints of epigastric chest pain that started this afternoon around 1:00. Patient states he just been short of breath for the past 3 days. She states that the chest pain is gone at this time. She still remained short of breath. She states that she has been chilled but has not reported any fevers. She denies any nausea vomiting or diarrhea. She does live alone and has family that checks on her. Family at bedside states that she has had no sick contacts. Patient does have a history of angina, CVA, hypertension, syncope, NH in October 2010. -: days(s) (3) Location: chest Radiation: non-radiation Severity scale (1-10): 0 Consistency: now resolved Associated Symptoms: chest pain, fever/chills, shortness of breath - Related Data Home Medications Medication Instructions Recorded Confirmed Carvedilol 25 mg PO DIRECTED 12/18/13 07/08/21 Multivitamin/Iron/Folic Acid 1 tab PO DAILY 11/17/15 07/08/21 [Centrum Complete Multivit Tab] Aspirin EC [Ecotrin Low Dose] 81 mg PO DAILY 09/16/18 07/08/21 Ezetimibe [Zetia] 10 mg PO HS 12/26/18 07/08/21 LORazepam [Ativan] 1 mg PO HS 12/26/18 07/08/21 Simvastatin [Zocor] 20 mg PO HS 12/26/18 07/08/21 cloNIDine HCL [Catapres] 0.3 mg PO BID 12/26/18 07/08/21 Calcium Carbonate [Calcium] 600 mg PO DAILY 08/07/20 07/08/21 Cyanocobalamin (Vitamin B-12) 1,000 mcg PO DAILY 08/07/20 07/08/21 [Vitamin B-12] Mirabegron [Myrbetriq] 50 mg PO HS 08/07/20 07/08/21 Cholecalciferol [Vitamin D3 (25 25 mcg PO DAILY 10/22/20 07/08/21 Mcg = 1000 Iu)] amLODIPine [Norvasc] 5 mg PO DIRECTED 10/22/20 07/08/21 Azithromycin [Zithromax Z-pack (6 See Taper PO DAILY 07/07/21 07/08/21 tabs)] Prednisolone Acetate/Pf 1 drop RIGHT EYE QID 07/07/21 07/08/21 [Prednisolone Acet 1% Eye Drop] Amoxicillin/Potassium Clav 1 tab PO Q12HR 07/08/21 07/08/21 [Augmentin 875-125 Tablet] Previous Rx's Medication Instructions Recorded Potassium Chloride ER [K-Dur 20] 20 meq PO DAILY 30 Days #30 tab 08/16/21 Allergies Allergy/AdvReac Type Severity Reaction Status Date / Time oxycodone [From Percocet] Allergy Unknown Verified 07/08/21 17:40 codeine AdvReac Nausea & Verified 07/08/21 17:40 Vomiting meperidine HCl [From Demerol] AdvReac Nausea & Verified 07/08/21 17:40 Vomiting morphine AdvReac Nausea & Verified 07/08/21 17:40 Vomiting Review of Systems ROS Statement: Those systems with pertinent positive or pertinent negative responses have been documented in the HPI. ROS Other: All systems not noted in ROS Statement are negative. Past Medical History Past Medical History: Chest Pain / Angina, CVA/TIA, GERD/Reflux, Hyperlipidemia, Hypertension, Myocardial Infarction (NH), Pneumonia, Syncope Additional Past Medical History / Comment(s): Past syncopal episodes, TIAs, UTIs, DJD spin, chronic back pain, arthritis hips and back, diverticular disease.urinary incontinence- wears briefs Last Myocardial Infarction Date:: 11/16/2010 History of Any Multi-Drug Resistant Organisms: None Reported Past Surgical History: Adenoidectomy, Appendectomy, Back Surgery, Cholecystectomy, Heart Catheterization, Hysterectomy, Tonsillectomy Additional Past Surgical History / Comment(s): cardiac caths in 2010 and 2013, back fusion/discectomy, colonoscopy, bilateral cataract removal with lens implants, Past Anesthesia/Blood Transfusion Reactions: Postoperative Nausea & Vomiting (PONV) Past Psychological History: Anxiety Smoking Status: Never smoker Past Alcohol Use History: None Reported Past Drug Use History: None Reported - Past Family History Father Additional Family Medical History / Comment(s): Father at the age of 57yrs with "heart problems". Mother Additional Family Medical History / Comment(s): Mother had an enlarged heart. She at the age of 79yrs. General Exam Limitations: no limitations General appearance: alert, in no apparent distress Head exam: Present: atraumatic Eye exam: Absent: scleral icterus, conjunctival injection, periorbital swelling, periorbital tenderness ENT exam: Present: mucous membranes moist Respiratory exam: Present: normal lung sounds bilaterally. Absent: respiratory distress, wheezes, rales, stridor, chest wall tenderness, accessory muscle use, decreased breath sounds Cardiovascular Exam: Present: regular rate, other (murmur) GI/Abdominal exam: Present: soft. Absent: distended, tenderness, guarding, rebound, rigid Extremities exam: Present: normal capillary refill. Absent: pedal edema Back exam: Absent: tenderness, CVA tenderness (R), CVA tenderness (L), rash noted Neurological exam: Present: alert, oriented X3 Psychiatric exam: Present: normal affect, normal mood Skin exam: Present: warm, dry, normal color. Absent: cyanosis, diaphoretic Course Vital Signs 08/15/21 08/15/21 08/15/21 20:05 21:20 22:49 Temperature 98.3 F Pulse Rate 83 64 65 Respiratory 20 18 18 Rate Blood Pressure 213/93 204/77 175/57 O2 Sat by Pulse 94 L 95 95 Oximetry EKG Findings - EKG Results: EKG: sinus rhythm (Ventricular rate of 73, MD interval 0.185, QRS 0.87, QTC 0.432) Medical Decision Making - Medical Decision Making X-ray shows pulmonary interstitial fibrosis no change compared to the July 08 2021 x-ray. Coronavirus and influenza swabs are negative. Troponin is 0.032, EKG sinus rhythm no significant changes. Hemoglobin 9.8. Patient has history of anemia. Potassium is 2.9 and patient was given 40 of K Dur. Cardiac echo was performed on 07/09/2021 showing ejection fraction 55-60%, aortic valve moderately thickened, mild aortic regurgitation and stenosis present. The mitral valve mildly thickened, mild to moderate mitral stenosis, mild tricuspid regurgitation Second troponin came back relatively unchanged at 0.035 and patient was discharged by Dr. Juares. She had no chest pain in the emergency room. Blood pressure improved after hydralazine. Patient and family member were directed to follow up with primary care doctor or return to the emergency room with any new or concerning symptoms. - Lab Data Result diagrams: 08/15/21 20:35 08/15/21 20:35 Lab Results 08/15/21 08/15/21 08/15/21 Range/Units 20:35 20:35 20:35 WBC 11.2 H (3.8-10.6) k/uL RBC 3.25 L (3.80-5.40) m/uL Hgb 9.8 L D (11.4-16.0) gm/dL Hct 31.2 L (34.0-46.0) % MCV 96.1 (80.0-100.0) fL MCH 30.3 (25.0-35.0) pg MCHC 31.5 (31.0-37.0) g/dL RDW 13.9 (11.5-15.5) % Plt Count 286 (150-450) k/uL MPV 7.6 Neutrophils % 81 % Lymphocytes % 10 % Monocytes % 6 % Eosinophils % 2 % Basophils % 1 % Neutrophils # 9.1 H (1.3-7.7) k/uL Lymphocytes # 1.1 (1.0-4.8) k/uL Monocytes # 0.7 (0-1.0) k/uL Eosinophils # 0.2 (0-0.7) k/uL Basophils # 0.1 (0-0.2) k/uL PT 10.8 (9.0-12.0) sec INR 1.0 (<1.2) APTT 21.3 L (22.0-30.0) sec Sodium 137 (137-145) mmol/L Potassium 2.9 L (3.5-5.1) mmol/L Chloride 103 (98-107) mmol/L Carbon Dioxide 29 (22-30) mmol/L Anion Gap 5 mmol/L BUN 17 (7-17) mg/dL Creatinine 0.73 (0.52-1.04) mg/dL Est GFR (CKD-EPI)AfAm 85 (>60 ml/min/1.73 sqM) Est GFR (CKD-EPI)NonAf 74 (>60 ml/min/1.73 sqM) Glucose 195 H (74-99) mg/dL Calcium 8.4 (8.4-10.2) mg/dL Magnesium 1.6 (1.6-2.3) mg/dL Total Bilirubin 0.3 (0.2-1.3) mg/dL AST 25 (14-36) U/L ALT 12 (4-34) U/L Alkaline Phosphatase 76 (38-126) U/L Troponin I (0.000-0.034) ng/mL Total Protein 5.9 L (6.3-8.2) g/dL Albumin 2.8 L (3.5-5.0) g/dL Coronavirus (PCR) (Not Detectd) Influenza Type A RNA (Not Detectd) Influenza Type B (PCR) (Not Detectd) 08/15/21 08/15/21 08/15/21 Range/Units 20:35 20:39 20:39 WBC (3.8-10.6) k/uL RBC (3.80-5.40) m/uL Hgb (11.4-16.0) gm/dL Hct (34.0-46.0) % MCV (80.0-100.0) fL MCH (25.0-35.0) pg MCHC (31.0-37.0) g/dL RDW (11.5-15.5) % Plt Count (150-450) k/uL MPV Neutrophils % % Lymphocytes % % Monocytes % % Eosinophils % % Basophils % % Neutrophils # (1.3-7.7) k/uL Lymphocytes # (1.0-4.8) k/uL Monocytes # (0-1.0) k/uL Eosinophils # (0-0.7) k/uL Basophils # (0-0.2) k/uL PT (9.0-12.0) sec INR (<1.2) APTT (22.0-30.0) sec Sodium (137-145) mmol/L Potassium (3.5-5.1) mmol/L Chloride (98-107) mmol/L Carbon Dioxide (22-30) mmol/L Anion Gap mmol/L BUN (7-17) mg/dL Creatinine (0.52-1.04) mg/dL Est GFR (CKD-EPI)AfAm (>60 ml/min/1.73 sqM) Est GFR (CKD-EPI)NonAf (>60 ml/min/1.73 sqM) Glucose (74-99) mg/dL Calcium (8.4-10.2) mg/dL Magnesium (1.6-2.3) mg/dL Total Bilirubin (0.2-1.3) mg/dL AST (14-36) U/L ALT (4-34) U/L Alkaline Phosphatase (38-126) U/L Troponin I 0.032 (0.000-0.034) ng/mL Total Protein (6.3-8.2) g/dL Albumin (3.5-5.0) g/dL Coronavirus (PCR) Not Detected (Not Detectd) Influenza Type A RNA Not Detected (Not Detectd) Influenza Type B (PCR) Not Detected (Not Detectd) 08/15/21 Range/Units 23:31 WBC (3.8-10.6) k/uL RBC (3.80-5.40) m/uL Hgb (11.4-16.0) gm/dL Hct (34.0-46.0) % MCV (80.0-100.0) fL MCH (25.0-35.0) pg MCHC (31.0-37.0) g/dL RDW (11.5-15.5) % Plt Count (150-450) k/uL MPV Neutrophils % % Lymphocytes % % Monocytes % % Eosinophils % % Basophils % % Neutrophils # (1.3-7.7) k/uL Lymphocytes # (1.0-4.8) k/uL Monocytes # (0-1.0) k/uL Eosinophils # (0-0.7) k/uL Basophils # (0-0.2) k/uL PT (9.0-12.0) sec INR (<1.2) APTT (22.0-30.0) sec Sodium (137-145) mmol/L Potassium (3.5-5.1) mmol/L Chloride (98-107) mmol/L Carbon Dioxide (22-30) mmol/L Anion Gap mmol/L BUN (7-17) mg/dL Creatinine (0.52-1.04) mg/dL Est GFR (CKD-EPI)AfAm (>60 ml/min/1.73 sqM) Est GFR (CKD-EPI)NonAf (>60 ml/min/1.73 sqM) Glucose (74-99) mg/dL Calcium (8.4-10.2) mg/dL Magnesium (1.6-2.3) mg/dL Total Bilirubin (0.2-1.3) mg/dL AST (14-36) U/L ALT (4-34) U/L Alkaline Phosphatase (38-126) U/L Troponin I 0.035 H* (0.000-0.034) ng/mL Total Protein (6.3-8.2) g/dL Albumin (3.5-5.0) g/dL Coronavirus (PCR) (Not Detectd) Influenza Type A RNA (Not Detectd) Influenza Type B (PCR) (Not Detectd) Disposition Clinical Impression: Shortness of breath, Chest pain, Hypertension, Hypokalemia, Anemia Disposition: HOME SELF-CARE Condition: Good Instructions (If sedation given, give patient instructions): Chest Pain (ED), Hypertension (ED), Shortness of Breath (ED) Additional Instructions: Continue your previously prescribed medications. Follow up with the primary care doctor this week. Please talk to your primary care doctor about your elevated blood pressure today and your low potassium levels. Take potassium as prescribed once a day. Return to the emergency room with any new or concerning symptoms including w orsening chest pain or difficulty breathing. Prescriptions: Potassium Chloride ER [K-Dur 20] 20 meq PO DAILY 30 Days #30 tab Is patient prescribed a controlled substance at d/c from ED?: No Referrals: Uri Chaudhary MD [Primary Care Provider] - 1-2 days
[2021-08-15] MEDS ORDERED: PANTOPRAZOLE 40 MG/10 ML VIAL IVP STA (20:22)
[2021-08-15] MEDS ORDERED: ASPIRIN 81 MG PO STA (20:27)
[2021-08-15 20:52] LABS: Basophils # (A) 0.1 k/uL (0-0.2); Basophils % (A) 1 %; Eosinophils # (A) 0.2 k/uL (0-0.7); Eosinophils % (A) 2 %; HCT 31.2 % (34.0-46.0); Lymphocytes # (A) 1.1 k/uL (1.0-4.8); Lymphocytes % (A) 10 %; MCH 30.3 pg (25.0-35.0); MCHC 31.5 g/dL (31.0-37.0); MCV 96.1 fL (80.0-100.0); Mean Platelet Volume 7.6; Monocytes # (A) 0.7 k/uL (0-1.0); Monocytes % (A) 6 %; Neutrophils # (A) 9.1 k/uL (1.3-7.7); Neutrophils % (A) 81 %; Platelet Count 286 k/uL (150-450); RBC 3.25 m/uL (3.80-5.40); RDW 13.9 % (11.5-15.5); WBC 11.2 k/uL (3.8-10.6)
[2021-08-15] MEDS ORDERED: LABETALOL 5 MG/ML VIAL MDV IVP STA ×2 (20:56→22:55)
[2021-08-15 20:58] LABS: HGB 9.8 gm/dL (11.4-16.0)
--- NOTE | 2021-08-15 21:05 | XR ---
EXAMINATION TYPE: XR chest 2V DATE OF EXAM: 08/15/2021 COMPARISON: 07/08/2021 HISTORY: Chest pain TECHNIQUE: 2 views FINDINGS: There is coarse interstitial density in the lungs. Heart size is normal. There are no hilar masses. Thoracic aorta is atheromatous. There are chest leads. There is upper thoracic mild kyphotic deformity. There is osteopenia. IMPRESSION: Pulmonary interstitial fibrosis. No obvious heart failure. No change compared to the old exam. Atheromatous aorta.
[2021-08-15 21:07] LABS: Prothrombin Time 10.8 sec (9.0-12.0)
[2021-08-15 21:09] LABS: Partial Thromboplastin Time 21.3 sec (22.0-30.0)
[2021-08-15 21:17] LABS: Albumin 2.8 g/dL (3.5-5.0); Calcium 8.4 mg/dL (8.4-10.2); Total Bilirubin 0.3 mg/dL (0.2-1.3); Total Protein 5.9 g/dL (6.3-8.2)
[2021-08-15 21:21] VITALS: RESP 18
[2021-08-15 21:54] LABS: Magnesium 1.6 mg/dL (1.6-2.3); Potassium 2.9 mmol/L (3.5-5.1)
[2021-08-15] MEDS ORDERED: POTASSIUM CHLORIDE ER 20 MEQ TAB.ER PO STA (21:56)
[2021-08-15 22:54] VITALS: BP 175/57; PULSE 65
[2021-08-16] MEDS ORDERED: LORazepam 1 MG TAB PO STA (01:17)
== END 2021-08-16 01:37 | disposition home or self-care (01) ==
LOC: EC 19:47
DX: I10 Essential (primary) hypertension (principal); E87.6 Hypokalemia; D64.9 Anemia, unspecified; Z20.822 Contact with and (suspected) exposure to COVID-19; E78.5 Hyperlipidemia, unspecified; I25.2 Old myocardial infarction; K21.9 Gastro-esophageal reflux disease without esophagitis; F41.9 Anxiety disorder, unspecified; Z86.73 Personal history of transient ischemic attack (TIA), and cerebral infarction without residual deficits; Z79.82 Long term (current) use of aspirin; Z79.899 Other long term (current) drug therapy
CPT/HCPCS: 36415; 93005; 80053; 83735; 84484; 85025; 85610; 85730; 87502; 87635; 71046; 99285; 96374; 96375; 96376; C9113

== ENCOUNTER 2021-08-21 14:47 | Inpatient (IN) | payer MEDICARE ==
[2021-08-21] MEDS ORDERED: LABETALOL 5 MG/ML VIAL MDV IVP STA ×2 (15:26→16:57)
[2021-08-21] MEDS ORDERED: SODIUM CHLORIDE 0.9% 500 ML 500 ML IV STA (15:27)
[2021-08-21 16:09] LABS: Basophils # (A) 0.1 k/uL (0-0.2); Basophils % (A) 0 %; Eosinophils # (A) 0.1 k/uL (0-0.7); Eosinophils % (A) 1 %; HCT 32.1 % (34.0-46.0); Lymphocytes # (A) 1.2 k/uL (1.0-4.8); Lymphocytes % (A) 8 %; MCH 29.7 pg (25.0-35.0); MCHC 31.1 g/dL (31.0-37.0); MCV 95.6 fL (80.0-100.0); Mean Platelet Volume 8.3; Monocytes # (A) 0.8 k/uL (0-1.0); Monocytes % (A) 6 %; Neutrophils % (A) 84 %; Platelet Count 369 k/uL (150-450); RBC 3.36 m/uL (3.80-5.40); RDW 13.6 % (11.5-15.5); WBC 14.2 k/uL (3.8-10.6)
--- NOTE | 2021-08-21 16:09 | XR ---
EXAMINATION TYPE: XR chest 2V DATE OF EXAM: 08/21/2021 COMPARISON: Chest x-ray 6 days ago HISTORY: Syncope and weakness. TECHNIQUE: Frontal and lateral views of the chest are obtained. FINDINGS: There are chronic parenchymal changes bilaterally without suspicious focal air space opaci ty, pleural effusion, or pneumothorax seen. The cardiac silhouette size is stable and upper limits o f normal with atherosclerotic thoracic aorta. The osseous structures are demineralized. Underlying scoliosis is redemonstrated. IMPRESSION: Chronic changes without new acute pulmonary process.
--- NOTE | 2021-08-21 16:16 | CT ---
EXAMINATION TYPE: CT brain cspine wo con DATE OF EXAM: 08/21/2021 COMPARISON: CT brain August 07, 2020 HISTORY: Syncope. Fall injury with headache and neck pain. CT DLP: 1257.3 mGycm. Automated Exposure Control for Dose Reduction was Utilized. TECHNIQUE: CT scan of the head and cervical spine are performed without contrast. FINDINGS: There is no acute intracranial hemorrhage or midline shift identified. Mild to moderate v entricular and sulcal prominence is redemonstrated. Mild to moderate low attenuation in the deep and periventricular white matter is redemonstrated. The calvarium is intact. Right globe prosthesis redem onstrated. Scleral calcification left globe again seen medially. Visualized paranasal sinuses are rené ar. Cervical spine is visualized in its entirety from C1 through upper thoracic levels and demonstrates e xaggerated curvature without evidence of acute fracture or dislocation. Prevertebral soft tissue my ears within normal limits. The C1-C2 articulation is within normal limits on the coronal images. Ve rtebral body heights are maintained. There is mild to moderate disc space narrowing with disc calcifi cation at the C7-T1 level. Review of axial images show moderate calcified plaque bilateral carotid bu lb level. There are small sized thyroid gland. Lung apices show areas of peribronchial wall thickenin g and mucous plugging along with moderate biapical pleural/parenchymal scarring is slightly more susp icious 10 x 7 mm anterior right upper lung nodule or nodular consolidation axial image 95. Similar fi ndings were noted on CTA chest November 17, 2020. IMPRESSION: 1. There is no acute fracture or dislocation evident in the cervical spine. 2. No acute intracranial hemorrhage or midline shift is seen.
[2021-08-21 16:22] LABS: Albumin 3.1 g/dL (3.5-5.0); Calcium 9.1 mg/dL (8.4-10.2); Magnesium 1.6 mg/dL (1.6-2.3); Potassium 3.5 mmol/L (3.5-5.1); Total Bilirubin 0.2 mg/dL (0.2-1.3); Total Protein 6.4 g/dL (6.3-8.2)
[2021-08-21 16:41] LABS: Prothrombin Time 10.9 sec (9.0-12.0)
[2021-08-21 16:49] LABS: Partial Thromboplastin Time 18.9 sec (22.0-30.0)
[2021-08-21] MEDS ORDERED: ASPIRIN 81 MG PO STA (16:57)
[2021-08-21] MEDS ORDERED: NALOXONE 0.4 MG/ML 1 ML VIAL IV PRN (18:04)
[2021-08-21 18:28] LABS: Appearance,Urine Clear (Clear); Bilirubin,Urine Negative (Negative); Blood,Urine Trace (Negative); Color,Urine Light Yellow; Glucose,Urine (UA) Negative (Negative); Ketones,Urine 1+ (Negative); Leukocyte Esterase,Urine Negative (Negative); Mucus,Urine Rare /hpf; Nitrite,Urine Negative (Negative); Protein,Urine 1+ (Negative); RBC,Urine 1 /hpf (0-5); Specific Gravity,Urine 1.014 (1.001-1.035); Urobilinogen,Urine <2.0 mg/dL (<2.0); WBC,Urine 5 /hpf (0-5)
--- NOTE | 2021-08-21 18:39 | ED ---
General Adult HPI - General Chief complaint: Syncope Stated complaint: fall Time Seen by Provider: 08/21/21 15:18 Source: patient, EMS Mode of arrival: EMS Limitations: no limitations - History of Present Illness Initial comments: Patient is an 89-year-old female presenting with chief complaint of syncope. Family at bedside states that they talked to her yesterday, and did not hear from her this morning. The family member came and checked on her at around 2:00 this afternoon, they found her on the floor, estimating that the longer she could have been down to 16 hours. Patient does not have any recollection and cannot recall how she ended up on the floor. Patient is somewhat confused. On presentation blood pressure is 198/92. Patient takes Catapres and Norvasc at home, however family at bedside states that she does not always remember to take her medication and lives alone. Patient denies any chest pain, shortness of breath, palpitations, abdominal pain, nausea, vomiting, hematuria, dysuria, diarrhea, hematochezia, neck pain, headache, vision or hearing changes. - Related Data Home Medications Medication Instructions Recorded Confirmed Carvedilol 25 mg PO BID 12/18/13 08/21/21 Multivitamin/Iron/Folic Acid 1 tab PO DAILY 11/17/15 08/21/21 [Centrum Complete Multivit Tab] Aspirin EC [Ecotrin Low Dose] 81 mg PO DAILY 09/16/18 08/21/21 Ezetimibe [Zetia] 10 mg PO HS 12/26/18 08/21/21 LORazepam [Ativan] 1 mg PO TID PRN 12/26/18 08/21/21 Simvastatin [Zocor] 20 mg PO HS 12/26/18 08/21/21 cloNIDine HCL [Catapres] 0.3 mg PO BID 12/26/18 08/21/21 Calcium Carbonate [Calcium] 600 mg PO DAILY 08/07/20 08/21/21 Cyanocobalamin (Vitamin B-12) 1,000 mcg PO DAILY 08/07/20 08/21/21 [Vitamin B-12] Mirabegron [Myrbetriq] 50 mg PO HS 08/07/20 08/21/21 Cholecalciferol [Vitamin D3 (25 25 mcg PO DAILY 10/22/20 08/21/21 Mcg = 1000 Iu)] amLODIPine [Norvasc] 5 mg PO DAILY 10/22/20 08/21/21 Prednisolone Acetate/Pf 1 drop RIGHT EYE QID 07/07/21 08/21/21 [Prednisolone Acet 1% Eye Drop] Megestrol Acetate 400 mg PO DAILY 08/21/21 08/21/21 SILVER sulfADIAZINE Cream 1 applic TOPICAL DAILY 08/21/21 08/21/21 [Silvadene 1% Cream] traZODone HCL [Desyrel] 50 mg PO HS 08/21/21 08/21/21 Previous Rx's Medication Instructions Recorded Potassium Chloride ER [K-Dur 20] 20 meq PO DAILY 30 Days #30 tab 08/16/21 Allergies Allergy/AdvReac Type Severity Reaction Status Date / Time oxycodone [From Percocet] Allergy Unknown Verified 08/21/21 16:20 codeine AdvReac Nausea & Verified 08/21/21 16:20 Vomiting meperidine HCl [From Demerol] AdvReac Nausea & Verified 08/21/21 16:20 Vomiting morphine AdvReac Nausea & Verified 08/21/21 16:20 Vomiting Review of Systems ROS Statement: Those systems with pertinent positive or pertinent negative responses have been documented in the HPI. ROS Other: All systems not noted in ROS Statement are negative. Past Medical History Past Medical History: Chest Pain / Angina, CVA/TIA, GERD/Reflux, Hyperlipidemia, Hypertension, Myocardial Infarction ([place]), Pneumonia, Syncope Additional Past Medical History / Comment(s): Past syncopal episodes, TIAs, UTIs, DJD spin, chronic back pain, arthritis hips and back, diverticular disease.urinary incontinence- wears briefs Last Myocardial Infarction Date:: 11/16/2010 History of Any Multi-Drug Resistant Organisms: None Reported Past Surgical History: Adenoidectomy, Appendectomy, Back Surgery, Cholecystectomy, Heart Catheterization, Hysterectomy, Tonsillectomy Additional Past Surgical History / Comment(s): cardiac caths in 2010 and 2013, back fusion/discectomy, colonoscopy, bilateral cataract removal with lens implants, Past Anesthesia/Blood Transfusion Reactions: Postoperative Nausea & Vomiting (PONV) Past Psychological History: Anxiety Smoking Status: Never smoker Past Alcohol Use History: None Reported Past Drug Use History: None Reported - Past Family History Father Additional Family Medical History / Comment(s): Father at the age of 57yrs with "heart problems". Mother Additional Family Medical History / Comment(s): Mother had an enlarged heart. She at the age of 79yrs. General Exam Limitations: altered mental status (Confused) General appearance: alert, in no apparent distress Head exam: Present: atraumatic, normocephalic, normal inspection Eye exam: Present: normal appearance, PERRL, EOMI. Absent: scleral icterus Neck exam: Present: normal inspection. Absent: tenderness Respiratory exam: Present: normal lung sounds bilaterally. Absent: respiratory distress, wheezes, rales, rhonchi, stridor Cardiovascular Exam: Present: regular rate, normal rhythm, normal heart sounds. Absent: systolic murmur, diastolic murmur, rubs, gallop, clicks GI/Abdominal exam: Present: soft. Absent: distended, tenderness, guarding, rebound, rigid Neurological exam: Present: alert, oriented X3, CN II-XII intact Expanded Speech: Present: fluid speech Cranial nerves: EOM's Intact: Normal, Tongue Deviation: Normal, Facial Sensation: Normal Eye Response: (4) open spontaneously Motor Response: (6) obeys commands Verbal Response: (5) oriented [place] Total: 15 Psychiatric exam: Present: normal affect, normal mood Skin exam: Present: warm, dry, intact, normal color. Absent: rash Course Vital Signs 08/21/21 08/21/21 08/21/21 15:03 16:21 17:00 Temperature 97.6 F Pulse Rate 85 84 74 Respiratory 20 20 20 Rate Blood Pressure 198/92 206/84 196/86 O2 Sat by Pulse Oximetry 08/21/21 08/21/21 08/21/21 17:17 17:54 18:00 Temperature Pulse Rate 89 Respiratory 20 Rate Blood Pressure 199/102 136/85 O2 Sat by Pulse 95 95 Oximetry 08/21/21 08/21/21 08/21/21 18:20 18:21 18:37 Temperature Pulse Rate 77 78 Respiratory 18 18 Rate Blood Pressure 181/103 136/95 215/97 O2 Sat by Pulse 95 95 Oximetry 08/21/21 08/21/21 08/21/21 19:22 19:55 20:28 Temperature Pulse Rate 84 77 Respiratory 20 Rate Blood Pressure 203/91 204/77 200/100 O2 Sat by Pulse Oximetry EKG Findings - EKG Comments: EKG Findings:: Sinus rhythm rate of 83. [place] interval 161. QRS duration 82. This EKG was also shown to and interpreted by my attending Dr. eMra Medical Decision Making - Medical Decision Making Patient is a 89-year-old female presenting with chief complaint of syncope. Patient was found by family member at 2:00 this afternoon, patient does not remember losing consciousness or how she got onto the ground. Presentation she is hypertensive at 198/92, she denies any chest pain, shortness of breath, headache, abdominal pain, patient was given 2 doses of labetalol 20 mg which brought the BP down to 136/95. Troponin is 0.411, at previous visit 6 days ago troponin was 0.035, EKG was also interpretted by my attending physician, when I discussed these findings with him, he advised not heparinizing due to her lack of symptoms and admitting for cardiac workup with repeat troponins and echo. BNP is 2330. I discussed BP management with my attending, he stated that as long as she is asymptomatic we can continue to monitor and not add antihypertensives outside of her home medications. I spoke with Dr. Chaudhary who agreed to admit the patient. Cardiology was consulted. Echo was ordered. Patient and family conveyed verbal understanding and agreed to the plan. I discussed this case with my attending Dr. Mera. - Lab Data Result diagrams: 08/21/21 15:40 08/21/21 15:40 Lab Results 08/21/21 08/21/21 08/21/21 Range/Units 15:40 15:40 15:40 WBC 14.2 H (3.8-10.6) k/uL RBC 3.36 L (3.80-5.40) m/uL Hgb 10.0 L (11.4-16.0) gm/dL Hct 32.1 L (34.0-46.0) % MCV 95.6 (80.0-100.0) fL MCH 29.7 (25.0-35.0) pg MCHC 31.1 (31.0-37.0) g/dL RDW 13.6 (11.5-15.5) % Plt Count 369 (150-450) k/uL MPV 8.3 Neutrophils % 84 % Lymphocytes % 8 % Monocytes % 6 % Eosinophils % 1 % Basophils % 0 % Neutrophils # 12.0 H (1.3-7.7) k/uL Lymphocytes # 1.2 (1.0-4.8) k/uL Monocytes # 0.8 (0-1.0) k/uL Eosinophils # 0.1 (0-0.7) k/uL Basophils # 0.1 (0-0.2) k/uL PT 10.9 (9.0-12.0) sec INR 1.0 (<1.2) APTT 18.9 L (22.0-30.0) sec Sodium 136 L (137-145) mmol/L Potassium 3.5 (3.5-5.1) mmol/L Chloride 103 (98-107) mmol/L Carbon Dioxide 25 (22-30) mmol/L Anion Gap 8 mmol/L BUN 17 (7-17) mg/dL Creatinine 0.77 (0.52-1.04) mg/dL Est GFR (CKD-EPI)AfAm 80 (>60 ml/min/1.73 sqM) Est GFR (CKD-EPI)NonAf 69 (>60 ml/min/1.73 sqM) Glucose 91 (74-99) mg/dL Calcium 9.1 (8.4-10.2) mg/dL Magnesium 1.6 (1.6-2.3) mg/dL Total Bilirubin 0.2 (0.2-1.3) mg/dL AST 24 (14-36) U/L ALT 10 (4-34) U/L Alkaline Phosphatase 89 (38-126) U/L Creatine Kinase 182 H (30-135) U/L Troponin I (0.000-0.034) ng/mL Total Protein 6.4 (6.3-8.2) g/dL Albumin 3.1 L (3.5-5.0) g/dL 08/21/21 Range/Units 15:40 WBC (3.8-10.6) k/uL RBC (3.80-5.40) m/uL Hgb (11.4-16.0) gm/dL Hct (34.0-46.0) % MCV (80.0-100.0) fL MCH (25.0-35.0) pg MCHC (31.0-37.0) g/dL RDW (11.5-15.5) % Plt Count (150-450) k/uL MPV Neutrophils % % Lymphocytes % % Monocytes % % Eosinophils % % Basophils % % Neutrophils # (1.3-7.7) k/uL Lymphocytes # (1.0-4.8) k/uL Monocytes # (0-1.0) k/uL Eosinophils # (0-0.7) k/uL Basophils # (0-0.2) k/uL PT (9.0-12.0) sec INR (<1.2) APTT (22.0-30.0) sec Sodium (137-145) mmol/L Potassium (3.5-5.1) mmol/L Chloride (98-107) mmol/L Carbon Dioxide (22-30) mmol/L Anion Gap mmol/L BUN (7-17) mg/dL Creatinine (0.52-1.04) mg/dL Est GFR (CKD-EPI)AfAm (>60 ml/min/1.73 sqM) Est GFR (CKD-EPI)NonAf (>60 ml/min/1.73 sqM) Glucose (74-99) mg/dL Calcium (8.4-10.2) mg/dL Magnesium (1.6-2.3) mg/dL Total Bilirubin (0.2-1.3) mg/dL AST (14-36) U/L ALT (4-34) U/L Alkaline Phosphatase (38-126) U/L Creatine Kinase (30-135) U/L Troponin I 0.411 H* (0.000-0.034) ng/mL Total Protein (6.3-8.2) g/dL Albumin (3.5-5.0) g/dL Disposition Clinical Impression: Syncope, Elevated troponin, Hypertension Disposition: ADMITTED IP TO THIS [facility] Condition: Fair Time of Disposition: 18:51 Decision to Admit Reason: Admit from EC Decision Date: 08/21/21 Decision Time: 18:51
[2021-08-21] MEDS ORDERED: cloNIDine HCL 0.1 MG TAB PO STA (19:48)
[2021-08-21] MEDS: SODIUM CHLORIDE 0.9% 1,000 ML IV SCH (19:56)
[2021-08-21] MEDS: carvediloL 12.5 MG TAB PO SCH (20:29)
[2021-08-22] MEDS: carvediloL 12.5 MG TAB PO SCH ×2 (06:10→16:45)
[2021-08-22] MEDS: SODIUM CHLORIDE 0.9% 1,000 ML IV SCH ×2 (06:12→21:10)
[2021-08-22 08:02] LABS: Basophils % (A) 0 %; Eosinophils # (A) 0.1 k/uL (0-0.7); Eosinophils % (A) 1 %; HCT 31.4 % (34.0-46.0); HGB 9.7 gm/dL (11.4-16.0); Hypochromasia Slight; Lymphocytes # (A) 1.1 k/uL (1.0-4.8); Lymphocytes % (A) 11 %; MCH 29.8 pg (25.0-35.0); MCV 96.2 fL (80.0-100.0); Mean Platelet Volume 7.7; Monocytes # (A) 0.5 k/uL (0-1.0); Monocytes % (A) 5 %; Neutrophils # (A) 8.7 k/uL (1.3-7.7); Neutrophils % (A) 82 %; Platelet Count 357 k/uL (150-450); RBC 3.26 m/uL (3.80-5.40); WBC 10.5 k/uL (3.8-10.6)
[2021-08-22 08:16] LABS: Albumin 2.8 g/dL (3.5-5.0); Calcium 8.4 mg/dL (8.4-10.2); Magnesium 1.6 mg/dL (1.6-2.3); Potassium 3.7 mmol/L (3.5-5.1); Total Bilirubin 0.2 mg/dL (0.2-1.3)
--- NOTE | 2021-08-22 08:55 | P.HPIM ---
History of Present Illness H&P Date: 08/22/21 Chief Complaint: Multiple falls This is a history of physical and 89-year-old white female with known history of malnutrition who was found by her son on the floor for multiple hours. She's had significant weakness. We've had multiple consultations regarding her initial status. However, she is having difficulty with appropriate caloric intake. She is admitted for generalized weakness and malnutrition and probable element of dehydration is noted. Underlying hypertension. Review of Systems Constitutional: Denies chills, Denies fever Eyes: denies blurred vision, denies pain Ears, nose, mouth and throat: Denies headache, Denies sore throat Cardiovascular: Denies chest pain, Denies shortness of breath Respiratory: Denies cough Musculoskeletal: Reports frequent falls Neurological: Reports weakness, Denies numbness Past Medical History Past Medical History: Chest Pain / Angina, CVA/TIA, GERD/Reflux, Hyperlipidemia, Hypertension, Myocardial Infarction ([place]), Pneumonia, Syncope Additional Past Medical History / Comment(s): Past syncopal episodes, TIAs, UTIs, DJD spin, chronic back pain, arthritis hips and back, diverticular disease.urinary incontinence- wears briefs Last Myocardial Infarction Date:: 11/16/2010 History of Any Multi-Drug Resistant Organisms: None Reported Past Surgical History: Adenoidectomy, Appendectomy, Back Surgery, Cholecystectomy, Heart Catheterization, Hysterectomy, Tonsillectomy Additional Past Surgical History / Comment(s): cardiac caths in 2010 and 2013, back fusion/discectomy, colonoscopy, bilateral cataract removal with lens implants, Past Anesthesia/Blood Transfusion Reactions: Postoperative Nausea & Vomiting (PONV) Past Psychological History: Anxiety Smoking Status: Never smoker Past Alcohol Use History: None Reported Past Drug Use History: None Reported - Past Family History Father Additional Family Medical History / Comment(s): Father at the age of 57yrs with "heart problems". Mother Additional Family Medical History / Comment(s): Mother had an enlarged heart. She at the age of 79yrs. Medications and Allergies Home Medications Medication Instructions Recorded Confirmed Type Carvedilol 25 mg PO BID 12/18/13 08/21/21 History Multivitamin/Iron/Folic Acid 1 tab PO DAILY 11/17/15 08/21/21 History [Centrum Complete Multivit Tab] Aspirin EC [Ecotrin Low Dose] 81 mg PO DAILY 09/16/18 08/21/21 History Ezetimibe [Zetia] 10 mg PO HS 12/26/18 08/21/21 History LORazepam [Ativan] 1 mg PO TID PRN 12/26/18 08/21/21 History Simvastatin [Zocor] 20 mg PO HS 12/26/18 08/21/21 History cloNIDine HCL [Catapres] 0.3 mg PO BID 12/26/18 08/21/21 History Calcium Carbonate [Calcium] 600 mg PO DAILY 08/07/20 08/21/21 History Cyanocobalamin (Vitamin B-12) 1,000 mcg PO DAILY 08/07/20 08/21/21 History [Vitamin B-12] Mirabegron [Myrbetriq] 50 mg PO HS 08/07/20 08/21/21 History Cholecalciferol [Vitamin D3 (25 25 mcg PO DAILY 10/22/20 08/21/21 History Mcg = 1000 Iu)] amLODIPine [Norvasc] 5 mg PO DAILY 10/22/20 08/21/21 History Prednisolone Acetate/Pf 1 drop RIGHT EYE QID 07/07/21 08/21/21 History [Prednisolone Acet 1% Eye Drop] Potassium Chloride ER [K-Dur 20] 20 meq PO DAILY 30 Days #30 tab 08/16/21 08/21/21 Rx Megestrol Acetate 400 mg PO DAILY 08/21/21 08/21/21 History SILVER sulfADIAZINE Cream 1 applic TOPICAL DAILY 08/21/21 08/21/21 History [Silvadene 1% Cream] traZODone HCL [Desyrel] 50 mg PO HS 08/21/21 08/21/21 History Allergies Allergy/AdvReac Type Severity Reaction Status Date / Time oxycodone [From Percocet] Allergy Unknown Verified 08/21/21 16:20 codeine AdvReac Nausea & Verified 08/21/21 16:20 Vomiting meperidine HCl [From Demerol] AdvReac Nausea & Verified 08/21/21 16:20 Vomiting morphine AdvReac Nausea & Verified 08/21/21 16:20 Vomiting Physical Exam Vitals: Vital Signs Temp Pulse Pulse Resp BP BP Pulse Ox 08/22/21 04:00 97.9 F 71 17 190/72 94 L 06/01/22 02:00 65 18 08/22/21 00:00 98.1 F 65 18 174/64 96 08/21/21 21:26 97.6 F 72 19 170/71 94 L 08/21/21 20:28 77 200/100 08/21/21 19:55 84 20 204/77 08/21/21 19:22 203/91 08/21/21 18:37 78 18 215/97 95 08/21/21 18:21 77 18 136/95 95 08/21/21 18:20 181/103 08/21/21 18:00 89 20 136/85 95 08/21/21 17:54 199/102 08/21/21 17:17 95 08/21/21 17:00 74 20 196/86 08/21/21 16:21 84 20 206/84 08/21/21 15:03 97.6 F 85 20 198/92 Intake and Output 08/21/21 08/22/21 08/22/21 22:59 06:59 14:59 Intake Total 270 Balance 270 Intake: Intake, IV Titration 150 Amount Sodium Chloride 0.9% 1, 150 000 ml @ 75 mls/hr IV . [id number] [facility] Rx#:[id number] Oral 120 Other: Voiding Method Toilet Diaper # Voids 3 Weight 35.834 kg 39.4 kg - Constitutional General appearance: cooperative, no acute distress, thin - Neck Neck: no lymphadenopathy - Respiratory Respiratory: bilateral: CTA - Cardiovascular Heart sounds: normal: S1, S2 Abnormal Heart Sounds: no S3 Gallop - Gastrointestinal General gastrointestinal: soft, no tenderness - Musculoskeletal Musculoskeletal: generalized weakness - Psychiatric Psychiatric: A&O x's 3 Results CBC & Chem 7: 08/22/21 07:24 08/22/21 07:24 Labs: Abnormal Lab Results - Last 24 Hours (Table) 08/21/21 08/21/21 08/21/21 Range/Units 15:40 15:40 15:40 WBC 14.2 H (3.8-10.6) k/uL RBC 3.36 L (3.80-5.40) m/uL Hgb 10.0 L (11.4-16.0) gm/dL Hct 32.1 L (34.0-46.0) % Neutrophils # 12.0 H (1.3-7.7) k/uL APTT 18.9 L (22.0-30.0) sec Sodium 136 L (137-145) mmol/L BUN (7-17) mg/dL Creatine Kinase 182 H (30-135) U/L Troponin I (0.000-0.034) ng/mL Total Protein (6.3-8.2) g/dL Albumin 3.1 L (3.5-5.0) g/dL Urine Protein (Negative) Urine Ketones (Negative) Urine Blood (Negative) Urine Mucus (None) /hpf 08/21/21 08/21/21 08/21/21 Range/Units 15:40 18:15 21:11 WBC (3.8-10.6) k/uL RBC (3.80-5.40) m/uL Hgb (11.4-16.0) gm/dL Hct (34.0-46.0) % Neutrophils # (1.3-7.7) k/uL APTT (22.0-30.0) sec Sodium (137-145) mmol/L BUN (7-17) mg/dL Creatine Kinase (30-135) U/L Troponin I 0.411 H* 0.427 H* (0.000-0.034) ng/mL Total Protein (6.3-8.2) g/dL Albumin (3.5-5.0) g/dL Urine Protein 1+ H (Negative) Urine Ketones 1+ H (Negative) Urine Blood Trace H (Negative) Urine Mucus Rare H (None) /hpf 08/21/21 08/22/21 08/22/21 Range/Units 23:44 07:24 07:24 WBC (3.8-10.6) k/uL RBC 3.26 L (3.80-5.40) m/uL Hgb 9.7 L (11.4-16.0) gm/dL Hct 31.4 L (34.0-46.0) % Neutrophils # 8.7 H (1.3-7.7) k/uL APTT (22.0-30.0) sec Sodium 134 L (137-145) mmol/L BUN 18 H (7-17) mg/dL Creatine Kinase (30-135) U/L Troponin I 0.340 H* (0.000-0.034) ng/mL Total Protein 6.0 L (6.3-8.2) g/dL Albumin 2.8 L (3.5-5.0) g/dL Urine Protein (Negative) Urine Ketones (Negative) Urine Blood (Negative) Urine Mucus (None) /hpf Thrombosis Risk Factor Assmnt - Choose All That Apply Any of the Below Risk Factors Present?: No Other Risk Factors: Yes Each Risk Factor Represents 3 Points: Age 75 years or older Other congenital or acquired thrombophilia - If yes, enter type in comment: No Thrombosis Risk Factor Assessment Total Risk Factor Score: 3 Thrombosis Risk Factor Assessment Level: Moderate Risk Assessment and Plan (1) Elevated troponin Current Visit: Yes Status: Acute Code(s): R77.8 - OTHER SPECIFIED ABNORMALITIES OF PLASMA PROTEINS SNOMED Code(s): 296002066 (2) HTN (hypertension) Current Visit: Yes Status: Acute Code(s): I10 - ESSENTIAL (PRIMARY) HYPERTENSION SNOMED Code(s): 92635794 (3) At risk for readmission to hospital Current Visit: No Status: Acute Code(s): Z91.89 - OTH PERSONAL RISK FACTORS, NOT ELSEWHERE CLASSIFIED SNOMED Code(s): 9101040267878 (4) Dizziness Current Visit: No Status: Acute Code(s): R42 - DIZZINESS AND GIDDINESS SNOMED Code(s): 277234250 (5) Mild malnutrition Current Visit: No Status: Acute Code(s): E44.1 - MILD PROTEIN-CALORIE MALNUTRITION SNOMED Code(s): 64609221 Plan: Serial troponins to rule out myocardial infarction. Start physical therapy. Reconcile home medications. Watch vital signs closely. Poor nutritional status. Nutritional consult as necessary. Discharge planning. The patient intends on living with her daughter instead of going home by suspect she is at high risk Time with Patient: Greater than 30
[2021-08-22] MEDS: LORazepam 1 MG TAB PO PRN (09:41)
[2021-08-22] MEDS: CALCIUM CARBONATE 500 MG CHEWABLE PO SCH (09:42)
[2021-08-22] MEDS: ASPIRIN 81 MG PO SCH (09:43)
[2021-08-22] MEDS: cloNIDine HCL 0.1 MG TAB PO SCH ×2 (09:43→21:09)
[2021-08-22] MEDS: CYANOCOBALAMIN 500 MCG TAB PO SCH (09:45)
[2021-08-22] MEDS: MULTIVITAMINS, THERA 1 EACH TAB PO SCH (09:45)
[2021-08-22] MEDS: POTASSIUM CHLORIDE ER 20 MEQ TAB.ER PO SCH (09:46)
[2021-08-22] MEDS: amLODIPine 5 MG TAB PO SCH (09:46)
[2021-08-22] MEDS: MEGESTROL 400 MG/10 ML CUP PO SCH (09:47)
[2021-08-22] MEDS: prednisoLONE ACETATE 1% OPHTH DROPS 5 ML BTL RIGHT EYE SCH ×4 (09:47→23:28)
[2021-08-22] MEDS: CHOLECALCIFEROL 25 MCG (1000 IU) TABLET PO SCH (09:47)
[2021-08-22] MEDS ORDERED: ACETAMINOPHEN TAB 325 MG TAB PO PRN (09:55)
[2021-08-22 10:45] VITALS: BMI 16.9
--- NOTE | 2021-08-22 11:07 | P.CRDCN ---
History of Present Illness History of present illness: This is a pleasant 89-year-old female patient who follows with Dr. Spaulding in the office. 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 She presented to the emergency department with complaint after a syncopal ep isode. She was sitting in her chair at home and was found on the ground by a family member, unknown downtime. She does not remember falling on the floor or what happened. She does not recall any symptoms prior to the episode. Apparently yesterday afternoon, a family member came by to check on her and she was found on the floor. She was brought to the emergency department for further evaluation. On admission patient was hypertensive with blood pressure 198/92 she received IV labetalol 20 mg. She denies any chest pain, lightheadedness, no symptoms of orthopnea, PND, no nausea vomiting or abdominal pain. DIAGNOSTICS -EKG reveals sinus rhythm HR 83, T wave inversion in lead V2 and aVL, LVH, left atrial enlargement. -Telemetry tracings indicate sinus mechanism, no arrhythmia or bradycardia noted. -She underwent stress testing with Lexiscan MPI in December 2019 which showed no evidence of ischemia. -CT brain no acute intracranial abnormality or C spine fracture -Laboratory reviewed, troponin negative 3, proBNP 1390, sodium 135, potassium 2.3, BUN 16, serum crit 0.7, albumin 3.3, WBC 11.3, platelets 310, hemoglobin 11.4 -Current home cardiac medications include clonidine 0.3 mg twice a day, amlodipine 5 mg daily, ezetimibe 10 mg nightly, carvedilol 25 mg twice a day, aspirin 81 mg daily -Most recent echocardiogram 06/2021 revealed an EF of 55-60%, mild aortic regurgitation, mild aortic stenosis with peak/mean gradient of 21/12 mmHg, mild to moderate mitral stenosis, mild pulmonary hypertension REVIEW OF SYSTEMS At the time of my exam: CONSTITUTIONAL: Denies fever or chills. CARDIOVASCULAR: Denies chest pain, shortness of breath, orthopnea, PND or palpitations. RESPIRATORY: Reports cough. GASTROINTESTINAL: Denies abdominal pain, diarrhea, constipation, nausea or vomiting. MUSCULOSKELETAL: Denies myalgias. NEUROLOGIC: Denies numbness, tingling, headacbe or weakness. ENDOCRINE: Denies fatigue, weight change, polydipsia or polyurina. GENITOURINARY: Denies burning, hematuria or urgency with micturation. HEMATOLOGIC: Denies history of anemia or bleeding. PHYSICAL EXAMINATION Blood pressure 173/81, heart rate 75, afebrile, saturations 97% on room air CONSTITUTIONAL: No apparent distress. HEENT: Head is normocephalic. Pupils are equal, round. Sclerae anicteric. Mucous membranes of the mouth are moist. No JVD. No carotid bruit. CHEST EXAMINATION: Lungs are clear to auscultation. No chest wall tenderness is noted on palpation or with deep breathing. HEART EXAMINATION: Regular rate and rhythm. S1, S2 heard. No murmurs, gallops or rub. ABDOMEN: Soft, nontender. Positive bowel sounds. EXTREMITIES: 2+ peripheral pulses, no lower extremity edema and no calf te nderness. NEUROLOGIC EXAMINATION: Patient is awake, alert and oriented x3. ASSESSMENT Syncopal episode, rule out cardiac etiology Hypertension Hyperlipidemia Histoy of Takotsubo cardiomyopathy in 2010 with recovery of EF Mild non-obstructive Coronary artery disease PLAN 2D echo ordered Monitor on telemetry for additional 24 hours, currently no evidence of arrhythmia, tachycardia or bradycardia Monitor BP Continue home cardiac medications and adjust as needed pending BP Further recommendations based on clinical course Nurse practitioner note has been reviewed by physician. Signing provider agrees with the documented findings, assessment, and plan of care. Past Medical History Past Medical History: Chest Pain / Angina, CVA/TIA, GERD/Reflux, Hyperlipidemia, Hypertension, Myocardial Infarction ([place]), Pneumonia, Syncope Additional Past Medical History / Comment(s): Past syncopal episodes, TIAs, UTIs, DJD spin, chronic back pain, arthritis hips and back, diverticular disease.urinary incontinence- wears briefs Last Myocardial Infarction Date:: 11/16/2010 History of Any Multi-Drug Resistant Organisms: None Reported Past Surgical History: Adenoidectomy, Appendectomy, Back Surgery, Cholecystectomy, Heart Catheterization, Hysterectomy, Tonsillectomy Additional Past Surgical History / Comment(s): cardiac caths in 2010 and 2013, back fusion/discectomy, colonoscopy, bilateral cataract removal with lens implants, Past Anesthesia/Blood Transfusion Reactions: Postoperative Nausea & Vomiting (PONV) Past Psychological History: Anxiety Smoking Status: Never smoker Past Alcohol Use History: None Reported Past Drug Use History: None Reported - Past Family History Father Additional Family Medical History / Comment(s): Father at the age of 57yrs with "heart problems". Mother Additional Family Medical History / Comment(s): Mother had an enlarged heart. She at the age of 79yrs. Medications and Allergies Home Medications Medication Instructions Recorded Confirmed Type Carvedilol 25 mg PO BID 12/18/13 08/21/21 History Multivitamin/Iron/Folic Acid 1 tab PO DAILY 11/17/15 08/21/21 History [Centrum Complete Multivit Tab] Aspirin EC [Ecotrin Low Dose] 81 mg PO DAILY 09/16/18 08/21/21 History Ezetimibe [Zetia] 10 mg PO HS 12/26/18 08/21/21 History LORazepam [Ativan] 1 mg PO TID PRN 12/26/18 08/21/21 History Simvastatin [Zocor] 20 mg PO HS 12/26/18 08/21/21 History cloNIDine HCL [Catapres] 0.3 mg PO BID 12/26/18 08/21/21 History Calcium Carbonate [Calcium] 600 mg PO DAILY 08/07/20 08/21/21 History Cyanocobalamin (Vitamin B-12) 1,000 mcg PO DAILY 08/07/20 08/21/21 History [Vitamin B-12] Mirabegron [Myrbetriq] 50 mg PO HS 08/07/20 08/21/21 History Cholecalciferol [Vitamin D3 (25 25 mcg PO DAILY 10/22/20 08/21/21 History Mcg = 1000 Iu)] amLODIPine [Norvasc] 5 mg PO DAILY 10/22/20 08/21/21 History Prednisolone Acetate/Pf 1 drop RIGHT EYE QID 07/07/21 08/21/21 History [Prednisolone Acet 1% Eye Drop] Potassium Chloride ER [K-Dur 20] 20 meq PO DAILY 30 Days #30 tab 08/16/21 08/21/21 Rx Megestrol Acetate 400 mg PO DAILY 08/21/21 08/21/21 History SILVER sulfADIAZINE Cream 1 applic TOPICAL DAILY 08/21/21 08/21/21 History [Silvadene 1% Cream] traZODone HCL [Desyrel] 50 mg PO HS 08/21/21 08/21/21 History Allergies Allergy/AdvReac Type Severity Reaction Status Date / Time oxycodone [From Percocet] Allergy Unknown Verified 08/21/21 16:20 codeine AdvReac Nausea & Verified 08/21/21 16:20 Vomiting meperidine HCl [From Demerol] AdvReac Nausea & Verified 08/21/21 16:20 Vomiting morphine AdvReac Nausea & Verified 08/21/21 16:20 Vomiting Physical Exam Vitals: Vital Signs Temp Pulse Pulse Resp BP BP Pulse Ox 08/22/21 04:00 97.9 F 71 17 190/72 94 L 08/22/21 02:00 65 18 08/22/21 00:00 98.1 F 65 18 174/64 96 08/21/21 21:26 97.6 F 72 19 170/71 94 L 08/21/21 20:28 77 200/100 08/21/21 19:55 84 20 204/77 08/21/21 19:22 203/91 08/21/21 18:37 78 18 215/97 95 08/21/21 18:21 77 18 136/95 95 08/21/21 18:20 181/103 08/21/21 18:00 89 20 136/85 95 08/21/21 17:54 199/102 08/21/21 17:17 95 08/21/21 17:00 74 20 196/86 08/21/21 16:21 84 20 206/84 08/21/21 15:03 97.6 F 85 20 198/92 Intake and Output 08/21/21 08/22/21 08/22/21 22:59 06:59 14:59 Intake Total 270 Balance 270 Intake: Intake, IV Titration 150 Amount Sodium Chloride 0.9% 1, 150 000 ml @ 75 mls/hr IV . [id number] [facility] Rx#:[id number] Oral 120 Other: Voiding Method Toilet Diaper # Voids 3 Weight 35.834 kg 39.4 kg Results 08/22/21 07:24 08/22/21 07:24 Cardiac Enzymes 08/21/21 08/21/21 08/21/21 Range/Units 15:40 15:40 21:11 AST 24 (14-36) U/L Troponin I 0.411 H* 0.427 H* (0.000-0.034) ng/mL 08/21/21 Range/Units 23:44 AST (14-36) U/L Troponin I 0.340 H* (0.000-0.034) ng/mL Coagulation 08/21/21 Range/Units 15:40 PT 10.9 (9.0-12.0) sec APTT 18.9 L (22.0-30.0) sec CBC 08/21/21 Range/Units 15:40 WBC 14.2 H (3.8-10.6) k/uL RBC 3.36 L (3.80-5.40) m/uL Hgb 10.0 L (11.4-16.0) gm/dL Hct 32.1 L (34.0-46.0) % Plt Count 369 (150-450) k/uL Comprehensive Metabolic Panel 08/21/21 Range/Units 15:40 Sodium 136 L (137-145) mmol/L Potassium 3.5 (3.5-5.1) mmol/L Chloride 103 (98-107) mmol/L Carbon Dioxide 25 (22-30) mmol/L BUN 17 (7-17) mg/dL Creatinine 0.77 (0.52-1.04) mg/dL Glucose 91 (74-99) mg/dL Calcium 9.1 (8.4-10.2) mg/dL AST 24 (14-36) U/L ALT 10 (4-34) U/L Alkaline Phosphatase 89 (38-126) U/L Total Protein 6.4 (6.3-8.2) g/dL Albumin 3.1 L (3.5-5.0) g/dL Current Medications Generic Name Dose Route Start Last Admin Trade Name Freq PRN Reason Stop Dose Admin Amlodipine Besylate 5 mg 08/22/21 09:00 Amlodipine 5 Mg Tab PO DAILY [facility] Carvedilol 25 mg 08/21/21 21:00 08/22/21 06:10 Carvedilol 12.5 Mg Tab PO 25 mg BID-W/MEALS [facility] Administration Clonidine 0.3 mg 08/22/21 09:00 Clonidine Hcl 0.1 Mg Tab PO BID [facility] Sodium Chloride 1,000 mls @ 75 mls/hr 08/21/21 18:15 08/22/21 06:12 Saline 0.9% IV 75 mls/hr .[id number] [facility] Administration Naloxone HCl 0.2 mg 08/21/21 18:04 Naloxone 0.4 Mg/Ml 1 Ml Vial IV Q2M PRN Opioid Reversal Intake and Output 08/21/21 08/22/21 08/22/21 22:59 06:59 14:59 Intake Total 270 Balance 270 Intake: Intake, IV Titration 150 Amount Sodium Chloride 0.9% 1, 150 000 ml @ 75 mls/hr IV . [id number] [facility] Rx#:[id number] Oral 120 Other: Voiding Method Toilet Diaper # Voids 3 Weight 35.834 kg 39.4 kg 08/21/21 15:40 08/21/21 15:40
--- NOTE | 2021-08-22 11:16 | XR ---
EXAMINATION TYPE: XR ribs bilateral DATE OF EXAM: 08/22/2021 COMPARISON: 08/21/2021 HISTORY: Pain. TECHNIQUE: 8 views submitted FINDINGS: Vague nodular changes in the left upper lobe. Hypertrophic and degenerative changes spine w ith scoliosis. There is a mildly displaced fracture involving the anterior lateral margin left eighth rib. Chronic appearing deformity involving the posterior lateral right fourth and fifth and seventh ribs. Diffuse osteopenia. IMPRESSION: 1. Findings are suspicious for an acute mildly displaced fracture involving the anterolateral left ei ghth rib correlate with point tenderness. 2. There are nodular densities in the left upper lobe recommend follow-up CT scan of the chest.
--- NOTE | 2021-08-22 12:01 | CA ---
Transthoracic Echo Report Name: Oumou Mazariegos Age: 89 Gender: F : 1930 Exam Date: 08/22/2021 10:16 Exam Location: [place] [facility] Ht (in): 60 Wt (lb): 86 Ordering Physician: Kumar Rolon Attending/Referring Phys: Maintenance Pipefitter Lorie Paz RDCS Procedure CPT: Indications: Syncope Cardiac Hx: Technical Quality: Fair Contrast 1: Total Dose (mL): Contrast 2: Total Dose (mL): MEASUREMENTS (Male / Female) Normal Values 2D ECHO LV Diastolic Diameter PLAX 2.4 cm 4.2 - 5.9 / 3.9 - 5.3 cm LV Systolic Diameter PLAX 1.9 cm IVS Diastolic Thickness 1.1 cm 0.6 - 1.0 / 0.6 - 0.9 cm LVPW Diastolic Thickness 1.4 cm 0.6 - 1.0 / 0.6 - 0.9 cm LV Relative Wall Thickness 1.0 RV Internal Dim ED PLAX 2.3 cm LA Volume 77.1 cm??? 18 - 58 / 22 - 52 cm??? M-MODE Aortic Root Diameter MM 2.6 cm LA Systolic Diameter MM 3.1 cm LA Ao Ratio MM 1.2 AV Cusp Separation MM 1.2 cm DOPPLER AV Peak Velocity 213.3 cm/s AV Peak Gradient 18.2 mmHg AV Mean Velocity 152.4 cm/s AV Mean Gradient 10.5 mmHg AV Velocity Time Integral 44.1 cm AI Peak Velocity 405.5 cm/s AI Peak Gradient 65.8 mmHg AI Pressure Half Time 575.2 ms LVOT Peak Velocity 97.0 cm/s LVOT Peak Gradient 3.8 mmHg MV Area PHT 2.6 cm??? Mitral E Point Velocity 70.3 cm/s Mitral A Point Velocity 124.0 cm/s Mitral E to A Ratio 0.6 MV Deceleration Time 293.1 ms MV E' Velocity 3.6 cm/s Mitral E to MV E' Ratio 19.3 TR Peak Velocity 219.2 cm/s TR Peak Gradient 19.2 mmHg Right Ventricular Systolic Press 23.5 mmHg FINDINGS Left Ventricle Moderately increased left ventricular wall thickness. Normal left ventricular systolic function with no obvious regional wall motion abnormalities. Left ventricular ejection fraction is estimated at 55-60 %. Right Ventricle Normal right ventricular size and function. Right ventricular systolic pressure within normal limits. Right Atrium Normal right atrial size. Left Atrium Severely increased left atrial volume. No evidence for an atrial septal defect. Mitral Valve Mitral valve thickened. Mild mitral annular calcification. Mild mitral stenosis. Mild to Moderate mitral regurgitation. Aortic Valve Focal thickening of the aortic valve cusps. Mild aortic stenosis with a peak gradient of 18 mmHg and a mean gradient of 11 mmHg. Mild aortic regurgitation. Tricuspid Valve Structurally normal tricuspid valve. Mild tricuspid regurgitation. Pulmonic Valve Trace pulmonic regurgitation. Pericardium No pericardial effusion. Aorta Normal size aortic root and proximal ascending aorta. CONCLUSIONS Moderate LVH Normal left ventricular ejection fraction 55-60% Mild to moderate mitral regurgitation Mild aortic stenosis with a mean gradient of 11 Mild aortic regurgitation No pericardial effusion Previewed by: Dr. Aleksandr Vega DO (Electronically Signed) Final Date: 22 August 2021 12:00
[2021-08-22] MEDS: Mirabegron [Myrbetriq] PO SCH (21:09)
[2021-08-22] MEDS: traZODone HCL 50 MG TAB PO SCH (21:09)
[2021-08-22] MEDS: EZETIMIBE 10 MG TAB PO SCH (21:09)
[2021-08-22] MEDS: ATORVASTATIN 10 MG TAB PO SCH (21:09)
[2021-08-23] MEDS: carvediloL 12.5 MG TAB PO SCH ×2 (07:00→16:07)
--- NOTE | 2021-08-23 08:58 | P.DS ---
Providers Date of admission: 08/21/21 16:43 Attending physician: Uri Chaudhary Consults: 08/21/21 17:48 Consult Physician Urgent Consulting Provider: [facility] Consult Reason/Comments: syncope, elevated troponin Do you want consulting provider notified?: Yes Primary care physician: Uri Chaudhary - Discharge Diagnosis(es) (1) Elevated troponin Current Visit: Yes Status: Acute (2) HTN (hypertension) Current Visit: Yes Status: Acute (3) At risk for readmission to hospital Current Visit: No Status: Acute (4) Dizziness Current Visit: No Status: Acute (5) Mild malnutrition Current Visit: No Status: Acute Hospital Course: This discharge summary an 89-year-old white female essentially admitted for fall and fracture was noted. The patient then was evaluated by cardiology secondary to her weakness. We did have a suspicion that because of her low weight that her medication could have a decreased volume of distribution which causes an increased concentration. We will cut back her Ativan. Question grief reaction. We had a long discussion to make sure that she's eating better as she has an element of mild malnutrition. She will be discharged to her daughter's care. She knows that she will have difficulty being fully independent at this point in her life. Patient Condition at Discharge: Fair Plan - Discharge Summary Discharge Rx Participant: Yes New Discharge Prescriptions: New LORazepam [Ativan] 0.5 mg PO TID PRN #90 tab PRN Reason: Anxiety Continue Carvedilol 25 mg PO BID Multivitamin/Iron/Folic Acid [Centrum Complete Multivit Tab] 1 tab PO DAILY Aspirin EC [Ecotrin Low Dose] 81 mg PO DAILY Simvastatin [Zocor] 20 mg PO HS cloNIDine HCL [Catapres] 0.3 mg PO BID Ezetimibe [Zetia] 10 mg PO HS Mirabegron [Myrbetriq] 50 mg PO HS Cyanocobalamin (Vitamin B-12) [Vitamin B-12] 1,000 mcg PO DAILY Calcium Carbonate [Calcium] 600 mg PO DAILY traZODone HCL [Desyrel] 50 mg PO HS amLODIPine [Norvasc] 5 mg PO DAILY Cholecalciferol [Vitamin D3 (25 Mcg = 1000 Iu)] 25 mcg PO DAILY Prednisolone Acetate/Pf [Prednisolone Acet 1% Eye Drop] 1 drop RIGHT EYE QID Potassium Chloride ER [K-Dur 20] 20 meq PO DAILY 30 Days #30 tab SILVER sulfADIAZINE Cream [Silvadene 1% Cream] 1 applic TOPICAL DAILY Megestrol Acetate 400 mg PO DAILY Discontinued LORazepam [Ativan] 1 mg PO TID PRN PRN Reason: Anxiety Discharge Medication List Carvedilol 25 mg PO BID 12/18/13 [History] Multivitamin/Iron/Folic Acid [Centrum Complete Multivit Tab] 1 tab PO DAILY 11/17/15 [History] Aspirin EC [Ecotrin Low Dose] 81 mg PO DAILY 09/16/18 [History] Ezetimibe [Zetia] 10 mg PO HS 12/26/18 [History] Simvastatin [Zocor] 20 mg PO HS 12/26/18 [History] cloNIDine HCL [Catapres] 0.3 mg PO BID 12/26/18 [History] Calcium Carbonate [Calcium] 600 mg PO DAILY 08/07/20 [History] Cyanocobalamin (Vitamin B-12) [Vitamin B-12] 1,000 mcg PO DAILY 08/07/20 [History] Mirabegron [Myrbetriq] 50 mg PO HS 08/07/20 [History] Cholecalciferol [Vitamin D3 (25 Mcg = 1000 Iu)] 25 mcg PO DAILY 10/22/20 [History] amLODIPine [Norvasc] 5 mg PO DAILY 10/22/20 [History] Prednisolone Acetate/Pf [Prednisolone Acet 1% Eye Drop] 1 drop RIGHT EYE QID 07/07/21 [History] Potassium Chloride ER [K-Dur 20] 20 meq PO DAILY 30 Days #30 tab 08/16/21 [Rx] Megestrol Acetate 400 mg PO DAILY 08/21/21 [History] SILVER sulfADIAZINE Cream [Silvadene 1% Cream] 1 applic TOPICAL DAILY 08/21/21 [History] traZODone HCL [Desyrel] 50 mg PO HS 08/21/21 [History] LORazepam [Ativan] 0.5 mg PO TID PRN #90 tab 08/23/21 [Rx] Follow up Appointment(s)/Referral(s): Uri Chaudhary MD [Primary Care Provider] - 1-2 days Oz Spaulding MD [STAFF PHYSICIAN] - 1 Week Discharge Disposition: HOME WITH HOME HEALTH SERVICES
[2021-08-23] MEDS: cloNIDine HCL 0.1 MG TAB PO SCH ×2 (09:09→21:41)
[2021-08-23] MEDS: MEGESTROL 400 MG/10 ML CUP PO SCH (09:09)
[2021-08-23] MEDS: CALCIUM CARBONATE 500 MG CHEWABLE PO SCH (09:09)
[2021-08-23] MEDS: prednisoLONE ACETATE 1% OPHTH DROPS 5 ML BTL RIGHT EYE SCH ×4 (09:09→21:41)
[2021-08-23] MEDS: CYANOCOBALAMIN 500 MCG TAB PO SCH (09:09)
[2021-08-23] MEDS: MULTIVITAMINS, THERA 1 EACH TAB PO SCH (09:12)
[2021-08-23] MEDS: amLODIPine 5 MG TAB PO SCH ×2 (09:13→21:41)
[2021-08-23] MEDS: POTASSIUM CHLORIDE ER 20 MEQ TAB.ER PO SCH (09:13)
[2021-08-23] MEDS: CHOLECALCIFEROL 25 MCG (1000 IU) TABLET PO SCH (09:13)
[2021-08-23] MEDS: ASPIRIN 81 MG PO SCH (09:16)
--- NOTE | 2021-08-23 12:23 | P.PN ---
Subjective This is a pleasant 89-year-old female patient who follows with Dr. Spaulding in the office. 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 She presented to the emergency department with complaint after a syncopal episode. She was sitting in her chair at home and was found on the ground by a family member, unknown downtime. She does not remember falling on the floor or what happened. She does not recall any symptoms prior to the episode. Apparently yesterday afternoon, a family member came by to check on her and she was found on the floor. She was brought to the emergency department for further evaluation. On admission patient was hypertensive with blood pressure 198/92 she received IV labetalol 20 mg. EKG with no acute abnormalities. troponin negative 3 08/23/2021 Patient seen and examined at bedside, no acute distress. She denies any chest pain, shortness of breath, leading numbness or dizziness. Telemetry tracings indicate sinus mechanism, no arrhythmia or bradycardia noted. Echocardiogram revealed an EF of 55-60%, mild aortic regurgitation, mild aortic stenosis with peak/mean gradient of 18/11 mmHg, mild to moderate mitral regurgitation, mild pulmonary hypertension. Blood pressure elevated this morning BP 196/76 HR 77, afebrile 96% on room air Shes currently maintained on amlodipine 5 mg daily, aspirin 80 mg daily, at orvastatin 10 mg nightly, clonidine 0.3 mg twice a day PHYSICAL EXAMINATION CONSTITUTIONAL: No apparent distress. HEENT: Neck Supple. No JVD. No carotid bruit. CHEST EXAMINATION: Lungs are clear to auscultation. No chest wall tenderness is noted on palpation or with deep breathing. HEART EXAMINATION: Regular rate and rhythm. S1, S2 heard. No murmurs, gallops or rub. ABDOMEN: Soft, nontender. Positive bowel sounds. EXTREMITIES: 2+ peripheral pulses, no lower extremity edema and no calf tende rness. NEUROLOGIC EXAMINATION: Patient is awake, alert and oriented x3. ASSESSMENT Syncopal episode, unwitnessed, unclear etiology Hypertension Hyperlipidemia Histoy of Takotsubo cardiomyopathy in 2010 with recovery of EF Mild non-obstructive Coronary artery disease PLAN Telemetry with no evidence of arrhythmia, tachycardia or bradycardia. Echocardiogram revealed EF 55-60% Increase amlodipine to 5mg BID Continue home cardiac medications From cardiology perspective, patient can be discharged home today. Follow up outpatient with Dr. Spaulding Nurse practitioner note has been reviewed by physician. Signing provider agrees with the documented findings, assessment, and plan of care. Objective - Vital Signs Vital signs: Vital Signs Temp 97.3 F L 08/23/21 12:00 Pulse 77 08/23/21 12:00 Resp 16 08/23/21 12:00 BP 172/75 08/23/21 12:00 Pulse Ox 96 08/23/21 12:00 FiO2 Intake & Output 08/22/21 08/23/21 08/23/21 18:59 06:59 18:59 Intake Total 237 250 358 Balance 237 250 358 Weight 39.4 kg Intake: Intake, IV Titration 150 Amount Sodium Chloride 0.9% 1, 150 000 ml @ 75 mls/hr IV . [id number] [facility] Rx#:[id number] Oral 237 100 358 Other: Voiding Method Toilet Toilet Diaper Diaper # Voids 2 1 - Labs CBC & Chem 7: 08/22/21 07:24 08/22/21 07:24
[2021-08-23] MEDS: LORazepam 1 MG TAB PO PRN (15:52)
[2021-08-23] MEDS: SODIUM CHLORIDE 0.9% 1,000 ML IV SCH (20:14)
[2021-08-23] MEDS: Mirabegron [Myrbetriq] PO SCH (20:15)
[2021-08-23] MEDS: EZETIMIBE 10 MG TAB PO SCH (21:41)
[2021-08-23] MEDS: ATORVASTATIN 10 MG TAB PO SCH (21:41)
[2021-08-23] MEDS: traZODone HCL 50 MG TAB PO SCH (21:41)
[2021-08-24] MEDS: SODIUM CHLORIDE 0.9% 1,000 ML IV SCH (01:38)
[2021-08-24] MEDS: carvediloL 12.5 MG TAB PO SCH (06:29)
[2021-08-24 08:22] VITALS: BP 178/68; PULSE 82; RESP 18; TEMP 98
[2021-08-24] MEDS: POTASSIUM CHLORIDE ER 20 MEQ TAB.ER PO SCH (08:22)
[2021-08-24] MEDS: MEGESTROL 400 MG/10 ML CUP PO SCH (08:22)
[2021-08-24] MEDS: CALCIUM CARBONATE 500 MG CHEWABLE PO SCH (08:22)
[2021-08-24] MEDS: CHOLECALCIFEROL 25 MCG (1000 IU) TABLET PO SCH (08:22)
[2021-08-24] MEDS: amLODIPine 5 MG TAB PO SCH (08:23)
[2021-08-24] MEDS: CYANOCOBALAMIN 500 MCG TAB PO SCH (08:23)
[2021-08-24] MEDS: prednisoLONE ACETATE 1% OPHTH DROPS 5 ML BTL RIGHT EYE SCH (08:23)
[2021-08-24] MEDS: MULTIVITAMINS, THERA 1 EACH TAB PO SCH (08:23)
[2021-08-24] MEDS: ASPIRIN 81 MG PO SCH (08:23)
[2021-08-24] MEDS: cloNIDine HCL 0.1 MG TAB PO SCH (08:23)
== END 2021-08-24 11:24 | disposition home health service (06) | DRG 641 ==
LOC: EC 14:47 → 3SCARD 16:43 → OBSVTOIN 16:43 → 3SCARD 20:52
PROVIDERS: ADMIT Family Medicine; ATTEND Family Medicine
DX: E86.0 Dehydration (principal); S22.31XA Fracture of one rib, right side, initial encounter for closed fracture; E44.1 Mild protein-calorie malnutrition; Z68.1 Body mass index [BMI] 19.9 or less, adult; W19.XXXA Unspecified fall, initial encounter; Z91.81 History of falling; R42 Dizziness and giddiness; R55 Syncope and collapse; I08.0 Rheumatic disorders of both mitral and aortic valves; I10 Essential (primary) hypertension; I25.10 Atherosclerotic heart disease of native coronary artery without angina pectoris; E78.5 Hyperlipidemia, unspecified; R29.6 Repeated falls; F41.9 Anxiety disorder, unspecified; I27.20 Pulmonary hypertension, unspecified; Z88.5 Allergy status to narcotic agent; Z88.8 Allergy status to other drugs, medicaments and biological substances; I25.2 Old myocardial infarction; Z79.82 Long term (current) use of aspirin; Z79.899 Other long term (current) drug therapy; Z86.73 Personal history of transient ischemic attack (TIA), and cerebral infarction without residual deficits; Z90.710 Acquired absence of both cervix and uterus; Z96.1 Presence of intraocular lens; Z98.1 Arthrodesis status; Z98.41 Cataract extraction status, right eye; Z98.42 Cataract extraction status, left eye; G89.29 Other chronic pain; Z87.01 Personal history of pneumonia (recurrent); M16.0 Bilateral primary osteoarthritis of hip; M19.09 Primary osteoarthritis, other specified site; Z87.440 Personal history of urinary (tract) infections; Z90.49 Acquired absence of other specified parts of digestive tract
CPT/HCPCS: 36415; 70450; 71046; 71110; 72125; 80053; 81001; 82550; 83735; 83880; 84443; 84484; 85025; 85610; 85730; 93005; 93306; 96361; 96374; 96376; 99285

== ENCOUNTER 2021-10-04 19:46 | Observation (INO) | payer MEDICARE ==
[2021-10-04] MEDS ORDERED: NITROGLYCERIN OINT 1 INCH/GM PACKET TOPICAL STA (20:02)
--- NOTE | 2021-10-04 20:02 | ED ---
SOB HPI - General Chief Complaint: Shortness of Breath Stated Complaint: ALINE Time Seen by Provider: 10/04/21 19:48 - History of Present Illness Initial Comments: Patient is a pleasant 89-year-old female presents to the emergency room with progressive dyspnea on exertion and reports that now sometimes at rest she is short of breath. She is not on oxygen or any diuretic therapy at home. She does have chronic lower extremity edema that is worse at the end of the day. She has old albuterol inhalers that she attempted to use to help with her shortness of breath with no response. She is typically able to ambulate around her home with minimal dyspnea however over the last week she has had an increase in her dyspnea to the point where she is unable to ambulate without severe shortness of breath. She denies any chest pain, fevers, chills, abdominal pain, nausea, vomiting, orthopnea, headache, dizziness or cough. She denies any known exposure to cover it or influenza. She has a past medical history of Takotsubo cardiomyopathy with recovered EF in 2010. She had echocardiogram completed last month showing moderate LVH but preserved ejection fraction. She has a past medical history significant for hypertension, hyperlipidemia, TIA, syncope, GERD and pneumonia. - Related Data Home Medications Medication Instructions Recorded Confirmed Carvedilol 25 mg PO BID 12/18/13 08/21/21 Multivitamin/Iron/Folic Acid 1 tab PO DAILY 11/17/15 08/21/21 [Centrum Complete Multivit Tab] Aspirin EC [Ecotrin Low Dose] 81 mg PO DAILY 09/16/18 08/21/21 Ezetimibe [Zetia] 10 mg PO HS 12/26/18 08/21/21 Simvastatin [Zocor] 20 mg PO HS 12/26/18 08/21/21 cloNIDine HCL [Catapres] 0.3 mg PO BID 12/26/18 08/21/21 Calcium Carbonate [Calcium] 600 mg PO DAILY 08/07/20 08/21/21 Cyanocobalamin (Vitamin B-12) 1,000 mcg PO DAILY 08/07/20 08/21/21 [Vitamin B-12] Mirabegron [Myrbetriq] 50 mg PO HS 08/07/20 08/21/21 Cholecalciferol [Vitamin D3 (25 25 mcg PO DAILY 10/22/20 08/21/21 Mcg = 1000 Iu)] Prednisolone Acetate/Pf 1 drop RIGHT EYE QID 07/07/21 08/21/21 [Prednisolone Acet 1% Eye Drop] Megestrol Acetate 400 mg PO DAILY 08/21/21 08/21/21 SILVER sulfADIAZINE Cream 1 applic TOPICAL DAILY 08/21/21 08/21/21 [Silvadene 1% Cream] traZODone HCL [Desyrel] 50 mg PO HS 08/21/21 08/21/21 Previous Rx's Medication Instructions Recorded Potassium Chloride ER [K-Dur 20] 20 meq PO DAILY 30 Days #30 tab 08/16/21 LORazepam [Ativan] 0.5 mg PO TID PRN #90 tab 08/23/21 amLODIPine [Norvasc] 5 mg PO BID 90 Days #180 tab 08/23/21 Allergies Allergy/AdvReac Type Severity Reaction Status Date / Time oxycodone [From Percocet] Allergy Unknown Verified 08/21/21 16:20 codeine AdvReac Nausea & Verified 08/21/21 16:20 Vomiting meperidine HCl [From Demerol] AdvReac Nausea & Verified 08/21/21 16:20 Vomiting morphine AdvReac Nausea & Verified 08/21/21 16:20 Vomiting Review of Systems ROS Statement: Those systems with pertinent positive or pertinent negative responses have been documented in the HPI. ROS Other: All systems not noted in ROS Statement are negative. Past Medical History Past Medical History: Chest Pain / Angina, CVA/TIA, GERD/Reflux, Hyperlipidemia, Hypertension, Myocardial Infarction ([place]), Pneumonia, Syncope Additional Past Medical History / Comment(s): Past syncopal episodes, TIAs, UTIs, DJD spin, chronic back pain, arthritis hips and back, diverticular disease.urinary incontinence- wears briefs Last Myocardial Infarction Date:: 11/16/2010 History of Any Multi-Drug Resistant Organisms: None Reported Past Surgical History: Adenoidectomy, Appendectomy, Back Surgery, Cholecystectomy, Heart Catheterization, Hysterectomy, Tonsillectomy Additional Past Surgical History / Comment(s): cardiac caths in 2010 and 2013, back fusion/discectomy, colonoscopy, bilateral cataract removal with lens implants, Past Anesthesia/Blood Transfusion Reactions: Postoperative Nausea & Vomiting (PONV) Past Psychological History: Anxiety Smoking Status: Never smoker Past Alcohol Use History: None Reported Past Drug Use History: None Reported - Past Family History Father Additional Family Medical History / Comment(s): Father at the age of 57yrs with "heart problems". Mother Additional Family Medical History / Comment(s): Mother had an enlarged heart. She at the age of 79yrs. General Exam General appearance: alert, in no apparent distress Head exam: Present: atraumatic, normocephalic, normal inspection Eye exam: Present: normal appearance, PERRL, EOMI. Absent: scleral icterus, conjunctival injection, periorbital swelling ENT exam: Present: normal exam, mucous membranes moist Neck exam: Present: normal inspection Respiratory exam: Present: rales (fine). Absent: respiratory distress, wheezes, rhonchi, stridor, accessory muscle use Cardiovascular Exam: Present: regular rate, normal rhythm, normal heart sounds, systolic murmur. Absent: diastolic murmur, rubs, gallop GI/Abdominal exam: Present: soft, normal bowel sounds. Absent: distended, tenderness, guarding, rebound, rigid Extremities exam: Present: pedal edema (Bilateral +1). Absent: calf tenderness Neurological exam: Present: alert, oriented X3, CN II-XII intact Psychiatric exam: Present: normal affect, normal mood Skin exam: Present: warm, dry, intact, normal color. Absent: rash Course Vital Signs 10/04/21 19:50 Temperature 97.2 F L Pulse Rate 77 Respiratory 22 Rate Blood Pressure 195/72 O2 Sat by Pulse 97 Oximetry Medical Decision Making - Medical Decision Making On exam bilateral lower extremity edema and fine crackles throughout her lung bang noted high probability for need for CHF admission; will correlate with chest x-ray and laboratory studies. Will check EKG, chest x-ray, CMP, CBC, pro- BMP, magnesium, lactic acid along with PT/INR. Pending CMP results will plan for diuresis. We will also test for upper respiratory viral agents including COVID and influenza. Currently respiratory rate and oxygen saturations stable on room air. Blood pressure elevated with normal heart rate; 51 inch of Nitropaste and monitor at this time further medications pending blood work. Chest x-ray shows chronic pericardial changes with no acute cardiopulmonary process. Labs did reveal mild anemia slightly low sodium levels stable renal function. Will give 20 mg of IV Lasix. Will plan for observation admission for mild diuresis. Case discussed with Dr. Juares. Dr. Chaudhary covering for himself paged. Case discussed with Dr. Chaudhary. Will place observation admission orders for monitoring. - Lab Data Result diagrams: 10/04/21 20:13 10/04/21 20:13 Lab Results 10/04/21 10/04/21 10/04/21 Range/Units 20:13 20:13 20:13 WBC 8.9 (3.8-10.6) k/uL RBC 3.66 L (3.80-5.40) m/uL Hgb 10.8 L (11.4-16.0) gm/dL Hct 34.6 (34.0-46.0) % MCV 94.4 (80.0-100.0) fL MCH 29.5 (25.0-35.0) pg MCHC 31.2 (31.0-37.0) g/dL RDW 13.8 (11.5-15.5) % Plt Count 372 (150-450) k/uL MPV 7.2 Neutrophils % 74 % Lymphocytes % 14 % Monocytes % 7 % Eosinophils % 5 % Basophils % 1 % Neutrophils # 6.6 (1.3-7.7) k/uL Lymphocytes # 1.2 (1.0-4.8) k/uL Monocytes # 0.6 (0-1.0) k/uL Eosinophils # 0.4 (0-0.7) k/uL Basophils # 0.1 (0-0.2) k/uL PT 9.9 (9.0-12.0) sec INR 0.9 (<1.2) APTT 20.1 L (22.0-30.0) sec Sodium 135 L (137-145) mmol/L Potassium 4.0 (3.5-5.1) mmol/L Chloride 103 (98-107) mmol/L Carbon Dioxide 27 (22-30) mmol/L Anion Gap 5 mmol/L BUN 16 (7-17) mg/dL Creatinine 0.94 (0.52-1.04) mg/dL Est GFR (CKD-EPI)AfAm 63 (>60 ml/min/1.73 sqM) Est GFR (CKD-EPI)NonAf 54 (>60 ml/min/1.73 sqM) Glucose 83 (74-99) mg/dL Plasma Lactic Acid Romeo (0.7-2.0) mmol/L Calcium 8.9 (8.4-10.2) mg/dL Total Bilirubin 0.1 L (0.2-1.3) mg/dL AST 21 (14-36) U/L ALT 10 (4-34) U/L Alkaline Phosphatase 118 (38-126) U/L Troponin I (0.000-0.034) ng/mL NT-Pro-B Natriuret Pep pg/mL Total Protein 6.9 (6.3-8.2) g/dL Albumin 3.4 L (3.5-5.0) g/dL Influenza Type A (PCR) (Not Detectd) Influenza Type B (PCR) (Not Detectd) RSV (PCR) (Not Detectd) SARS-CoV-2 (PCR) (Not Detectd) 10/04/21 10/04/21 10/04/21 Range/Units 20:13 20:13 20:13 WBC (3.8-10.6) k/uL RBC (3.80-5.40) m/uL Hgb (11.4-16.0) gm/dL Hct (34.0-46.0) % MCV (80.0-100.0) fL MCH (25.0-35.0) pg MCHC (31.0-37.0) g/dL RDW (11.5-15.5) % Plt Count (150-450) k/uL MPV Neutrophils % % Lymphocytes % % Monocytes % % Eosinophils % % Basophils % % Neutrophils # (1.3-7.7) k/uL Lymphocytes # (1.0-4.8) k/uL Monocytes # (0-1.0) k/uL Eosinophils # (0-0.7) k/uL Basophils # (0-0.2) k/uL PT (9.0-12.0) sec INR (<1.2) APTT (22.0-30.0) sec Sodium (137-145) mmol/L Potassium (3.5-5.1) mmol/L Chloride (98-107) mmol/L Carbon Dioxide (22-30) mmol/L Anion Gap mmol/L BUN (7-17) mg/dL Creatinine (0.52-1.04) mg/dL Est GFR (CKD-EPI)AfAm (>60 ml/min/1.73 sqM) Est GFR (CKD-EPI)NonAf (>60 ml/min/1.73 sqM) Glucose (74-99) mg/dL Plasma Lactic Acid Romeo 1.0 (0.7-2.0) mmol/L Calcium (8.4-10.2) mg/dL Total Bilirubin (0.2-1.3) mg/dL AST (14-36) U/L ALT (4-34) U/L Alkaline Phosphatase (38-126) U/L Troponin I <0.012 (0.000-0.034) ng/mL NT-Pro-B Natriuret Pep 842 pg/mL Total Protein (6.3-8.2) g/dL Albumin (3.5-5.0) g/dL Influenza Type A (PCR) (Not Detectd) Influenza Type B (PCR) (Not Detectd) RSV (PCR) (Not Detectd) SARS-CoV-2 (PCR) (Not Detectd) 10/04/21 Range/Units 20:13 WBC (3.8-10.6) k/uL RBC (3.80-5.40) m/uL Hgb (11.4-16.0) gm/dL Hct (34.0-46.0) % MCV (80.0-100.0) fL MCH (25.0-35.0) pg MCHC (31.0-37.0) g/dL RDW (11.5-15.5) % Plt Count (150-450) k/uL MPV Neutrophils % % Lymphocytes % % Monocytes % % Eosinophils % % Basophils % % Neutrophils # (1.3-7.7) k/uL Lymphocytes # (1.0-4.8) k/uL Monocytes # (0-1.0) k/uL Eosinophils # (0-0.7) k/uL Basophils # (0-0.2) k/uL PT (9.0-12.0) sec INR (<1.2) APTT (22.0-30.0) sec Sodium (137-145) mmol/L Potassium (3.5-5.1) mmol/L Chloride (98-107) mmol/L Carbon Dioxide (22-30) mmol/L Anion Gap mmol/L BUN (7-17) mg/dL Creatinine (0.52-1.04) mg/dL Est GFR (CKD-EPI)AfAm (>60 ml/min/1.73 sqM) Est GFR (CKD-EPI)NonAf (>60 ml/min/1.73 sqM) Glucose (74-99) mg/dL Plasma Lactic Acid Romeo (0.7-2.0) mmol/L Calcium (8.4-10.2) mg/dL Total Bilirubin (0.2-1.3) mg/dL AST (14-36) U/L ALT (4-34) U/L Alkaline Phosphatase (38-126) U/L Troponin I (0.000-0.034) ng/mL NT-Pro-B Natriuret Pep pg/mL Total Protein (6.3-8.2) g/dL Albumin (3.5-5.0) g/dL Influenza Type A (PCR) Not Detected (Not Detectd) Influenza Type B (PCR) Not Detected (Not Detectd) RSV (PCR) Not Detected (Not Detectd) SARS-CoV-2 (PCR) Not Detected (Not Detectd) - EKG Data EKG Comments: EKG sinus rhythm, left atrial enlargement, left ventricular hypertrophy unchanged compared to 08/21/21. Ventricular rate 72 bpm, TN interval 172 ms, QRS duration 82 ms, QT/QTC 375/399 ms, PRT axes 66, 42, 58 Disposition Clinical Impression: Dyspnea on exertion Disposition: ADMITTED IP TO THIS HOSP Condition: Stable Is patient prescribed a controlled substance at d/c from ED?: No Referrals: Uri Chaudhary MD [Primary Care Provider] - 1-2 days Time of Disposition: 22:38
[2021-10-04 20:19] LABS: Basophils # (A) 0.1 k/uL (0-0.2); Basophils % (A) 1 %; Eosinophils # (A) 0.4 k/uL (0-0.7); Eosinophils % (A) 5 %; HCT 34.6 % (34.0-46.0); HGB 10.8 gm/dL (11.4-16.0); Lymphocytes # (A) 1.2 k/uL (1.0-4.8); Lymphocytes % (A) 14 %; MCH 29.5 pg (25.0-35.0); MCHC 31.2 g/dL (31.0-37.0); MCV 94.4 fL (80.0-100.0); Mean Platelet Volume 7.2; Monocytes # (A) 0.6 k/uL (0-1.0); Monocytes % (A) 7 %; Neutrophils # (A) 6.6 k/uL (1.3-7.7); Neutrophils % (A) 74 %; Platelet Count 372 k/uL (150-450); RBC 3.66 m/uL (3.80-5.40); RDW 13.8 % (11.5-15.5); WBC 8.9 k/uL (3.8-10.6)
[2021-10-04 20:29] LABS: Albumin 3.4 g/dL (3.5-5.0); Calcium 8.9 mg/dL (8.4-10.2); Total Bilirubin 0.1 mg/dL (0.2-1.3); Total Protein 6.9 g/dL (6.3-8.2)
[2021-10-04 20:42] LABS: INR 0.9 (<1.2); Prothrombin Time 9.9 sec (9.0-12.0)
[2021-10-04 20:46] LABS: Partial Thromboplastin Time 20.1 sec (22.0-30.0)
--- NOTE | 2021-10-04 20:50 | XR ---
EXAMINATION TYPE: XR chest 2V DATE OF EXAM: 10/04/2021 COMPARISON: Chest x-ray August 21, 2021. HISTORY: Difficulty in breathing. TECHNIQUE: Frontal and lateral views of the chest are obtained. FINDINGS: There are chronic parenchymal changes bilaterally greatest in the upper lungs redemonstrat ed. There is no suspicious new focal air space opacity, pleural effusion, or pneumothorax seen. The cardiac silhouette size is upper limits of normal currently with atherosclerotic change aortic knob. The osseous structures are demineralized. Underlying scoliosis is redemonstrated. IMPRESSION: Chronic parenchymal changes redemonstrated, no new acute pulmonary process.
[2021-10-04] MEDS ORDERED: FUROSEMIDE 10 MG/ML 2 ML VIAL IV ONE (21:23)
[2021-10-04] MEDS ORDERED: NALOXONE 0.4 MG/ML 1 ML VIAL IV PRN (22:34)
[2021-10-04] MEDS ORDERED: ACETAMINOPHEN TAB 325 MG TAB PO PRN (22:34)
[2021-10-04] MEDS ORDERED: LORazepam 0.5 MG TAB PO STA (22:37)
[2021-10-05] MEDS ORDERED: cloNIDine HCL 0.1 MG TAB PO STA (01:15)
[2021-10-05 07:25] VITALS: RESP 18; TEMP 97.7
[2021-10-05] MEDS ORDERED: LORazepam 0.5 MG TAB PO PRN (08:17)
--- NOTE | 2021-10-05 08:24 | P.HPIM ---
History of Present Illness H&P Date: 10/05/21 Chief Complaint: Perceived dyspnea The patient is 89-year-old white female with known history of hypertension who has come in complaining of shortness of breath. No history of heart failure in the past. She has elements of malnutrition as she was living alone until recently. She states she's feeling much better but still has dyspnea. She suspect is related to anxiety as she takes Ativan at times and this helps her. No fever or chills chest x-ray does not show acute infiltrate although the ER doctor suggested Lasix IV 20 g 1 to see if diuresis. Her. She has good kidney function. BNP is normal. Review of Systems All systems: negative Respiratory: Reports dyspnea Past Medical History Past Medical History: Chest Pain / Angina, CVA/TIA, GERD/Reflux, Hyperlipidemia, Hypertension, Myocardial Infarction ([place]), Pneumonia, Syncope Additional Past Medical History / Comment(s): Past syncopal episodes, TIAs, UTIs, DJD spin, chronic back pain, arthritis hips and back, diverticular disease.urinary incontinence- wears briefs Last Myocardial Infarction Date:: 11/16/2010 History of Any Multi-Drug Resistant Organisms: None Reported Past Surgical History: Adenoidectomy, Appendectomy, Back Surgery, Cholecystectomy, Heart Catheterization, Hysterectomy, Tonsillectomy Additional Past Surgical History / Comment(s): cardiac caths in 2010 and 2013, back fusion/discectomy, colonoscopy, bilateral cataract removal with lens implants, Past Anesthesia/Blood Transfusion Reactions: Postoperative Nausea & Vomiting (PONV) Past Psychological History: Anxiety Additional Psychological History / Comment(s): takes ativan for anxiety Smoking Status: Never smoker Past Alcohol Use History: None Reported Additional Past Alcohol Use History / Comment(s): Pt states she started smoking in 1950 and quit in 1975. She will have an occasional glass of wine. Past Drug Use History: None Reported - Past Family History Father Additional Family Medical History / Comment(s): Father at the age of 57yrs with "heart problems". Mother Additional Family Medical History / Comment(s): Mother had an enlarged heart. She at the age of 79yrs. Medications and Allergies Home Medications Medication Instructions Recorded Confirmed Type Carvedilol 25 mg PO BID 12/18/13 10/04/21 History Multivitamin/Iron/Folic Acid 1 tab PO DAILY 11/17/15 10/04/21 History [Centrum Complete Multivit Tab] Aspirin EC [Ecotrin Low Dose] 81 mg PO DAILY 09/16/18 10/04/21 History Ezetimibe [Zetia] 10 mg PO HS 12/26/18 10/04/21 History Simvastatin [Zocor] 20 mg PO HS 12/26/18 10/04/21 History cloNIDine HCL [Catapres] 0.3 mg PO BID 12/26/18 10/04/21 History Calcium Carbonate [Calcium] 600 mg PO DAILY 08/07/20 10/04/21 History Cyanocobalamin (Vitamin B-12) 1,000 mcg PO DAILY 08/07/20 10/04/21 History [Vitamin B-12] Mirabegron [Myrbetriq] 50 mg PO HS 08/07/20 10/04/21 History Cholecalciferol [Vitamin D3 (25 25 mcg PO DAILY 10/22/20 10/04/21 History Mcg = 1000 Iu)] Prednisolone Acetate/Pf 1 drop RIGHT EYE QID 07/07/21 10/04/21 History [Prednisolone Acet 1% Eye Drop] Potassium Chloride ER [K-Dur 20] 20 meq PO DAILY 30 Days #30 tab 08/16/21 10/04/21 Rx Megestrol Acetate 400 mg PO DAILY 08/21/21 10/04/21 History SILVER sulfADIAZINE Cream 1 applic TOPICAL DAILY 08/21/21 10/04/21 History [Silvadene 1% Cream] traZODone HCL [Desyrel] 50 mg PO HS 08/21/21 10/04/21 History LORazepam [Ativan] 0.5 mg PO TID PRN #90 tab 08/23/21 10/04/21 Rx amLODIPine [Norvasc] 5 mg PO BID 90 Days #180 tab 08/23/21 10/04/21 Rx Allergies Allergy/AdvReac Type Severity Reaction Status Date / Time oxycodone [From Percocet] Allergy Unknown Verified 08/21/21 16:20 codeine AdvReac Nausea & Verified 08/21/21 16:20 Vomiting meperidine HCl [From Demerol] AdvReac Nausea & Verified 08/21/21 16:20 Vomiting morphine AdvReac Nausea & Verified 08/21/21 16:20 Vomiting Physical Exam Vitals: Vital Signs Temp Pulse Pulse Resp BP BP Pulse Ox 10/05/21 07:00 97.7 F 80 18 213/83 96 10/05/21 04:39 98.1 F 75 17 174/88 96 10/05/21 01:59 153/84 96 10/05/21 00:52 80 22 197/74 10/04/21 19:50 97.2 F L 77 22 195/72 97 Intake and Output 10/04/21 10/05/21 10/05/21 22:59 06:59 14:59 Other: Voiding Method Toilet Diaper # Voids 2 1 Weight 81.647 kg 81.647 kg - Constitutional General appearance: thin - EENT Eyes: EOMI - Neck Neck: no lymphadenopathy - Respiratory Respiratory: bilateral: diminished - Cardiovascular Rhythm: regular Heart sounds: normal: S1, S2 Abnormal Heart Sounds: no S3 Gallop - Gastrointestinal General gastrointestinal: soft, no tenderness - Integumentary Integumentary: no cellulitis - Musculoskeletal Musculoskeletal: generalized weakness - Psychiatric Psychiatric: A&O x's 3 Results CBC & Chem 7: 10/04/21 20:13 10/04/21 20:13 Labs: Abnormal Lab Results - Last 24 Hours (Table) 10/04/21 10/04/21 10/04/21 Range/Units 20:13 20:13 20:13 RBC 3.66 L (3.80-5.40) m/uL Hgb 10.8 L (11.4-16.0) gm/dL APTT 20.1 L (22.0-30.0) sec Sodium 135 L (137-145) mmol/L Total Bilirubin 0.1 L (0.2-1.3) mg/dL Albumin 3.4 L (3.5-5.0) g/dL Assessment and Plan (1) Dyspnea on exertion Current Visit: Yes Status: Acute Code(s): R06.09 - OTHER FORMS OF DYSPNEA SNOMED Code(s): 50366421 (2) At risk for readmission to hospital Current Visit: No Status: Acute Code(s): Z91.89 - OTH PERSONAL RISK FACTORS, NOT ELSEWHERE CLASSIFIED SNOMED Code(s): 7668158603529 (3) Mild malnutrition Current Visit: No Status: Acute Code(s): E44.1 - MILD PROTEIN-CALORIE MALNUTRITION SNOMED Code(s): 08173245 Plan: Reconcile medications. Advance diet. We will go ahead and increase ambulation per Given BNP normal with chest x-ray being nominal, check d-dimer. DVT prophylaxis with GI prophylaxis. Anticipate discharge in next 24 hours.
[2021-10-05] MEDS ORDERED: PANTOPRAZOLE 40 MG TABLET PO SCH (08:30)
[2021-10-05] MEDS ORDERED: carvediloL 12.5 MG TAB PO SCH (09:00)
[2021-10-05] MEDS ORDERED: MEGESTROL 400 MG/10 ML CUP PO SCH (09:00)
[2021-10-05] MEDS ORDERED: amLODIPine 5 MG TAB PO SCH (09:00)
[2021-10-05] MEDS ORDERED: MULTIVITAMINS, THERA 1 EACH TAB PO SCH (09:00)
[2021-10-05] MEDS ORDERED: HEPARIN SODIUM,PORCINE/PF 5,000 UNIT/0.5 ML SYRINGE SQ SCH (09:00)
[2021-10-05] MEDS ORDERED: ASPIRIN 81 MG PO SCH (09:00)
[2021-10-05] MEDS ORDERED: CYANOCOBALAMIN 500 MCG TAB PO SCH (09:00)
[2021-10-05] MEDS ORDERED: prednisoLONE ACETATE 1% OPHTH DROPS 5 ML BTL RIGHT EYE SCH (09:00)
[2021-10-05] MEDS ORDERED: CALCIUM CARBONATE 500 MG CHEWABLE PO SCH (09:00)
[2021-10-05] MEDS ORDERED: POTASSIUM CHLORIDE ER 20 MEQ TAB.ER PO SCH (09:00)
[2021-10-05] MEDS ORDERED: CHOLECALCIFEROL 25 MCG (1000 IU) TABLET PO SCH (09:00)
[2021-10-05] MEDS ORDERED: cloNIDine HCL 0.1 MG TAB PO SCH (11:00)
[2021-10-05 11:50] VITALS: BP 134/73; PULSE 66
[2021-10-05] MEDS ORDERED: EZETIMIBE 10 MG TAB PO SCH (21:00)
[2021-10-05] MEDS ORDERED: ATORVASTATIN 10 MG TAB PO SCH (21:00)
[2021-10-05] MEDS ORDERED: traZODone HCL 50 MG TAB PO SCH (21:00)
[2021-10-05] MEDS ORDERED: NON FORMULARY DRUG (Mirabegron [Myrbetriq] 50 MG Tab.Er.24h) PO SCH (21:00)
== END 2021-10-05 13:08 ==
LOC: EC 19:46 → 6NMEDSUR 22:55
PROVIDERS: ADMIT Family Medicine; ATTEND Family Medicine
DX: R06.09 Other forms of dyspnea (principal); E44.1 Mild protein-calorie malnutrition; Z68.28 Body mass index [BMI] 28.0-28.9, adult; R06.02 Shortness of breath; R60.0 Localized edema; I51.81 Takotsubo syndrome; I10 Essential (primary) hypertension; E78.5 Hyperlipidemia, unspecified; K21.9 Gastro-esophageal reflux disease without esophagitis; R55 Syncope and collapse; I25.2 Old myocardial infarction; G89.29 Other chronic pain; M16.0 Bilateral primary osteoarthritis of hip; M47.9 Spondylosis, unspecified; R32 Unspecified urinary incontinence; F41.9 Anxiety disorder, unspecified; D64.9 Anemia, unspecified; E87.1 Hypo-osmolality and hyponatremia; K57.90 Diverticulosis of intestine, part unspecified, without perforation or abscess without bleeding; Z20.822 Contact with and (suspected) exposure to COVID-19; Z86.73 Personal history of transient ischemic attack (TIA), and cerebral infarction without residual deficits; Z87.01 Personal history of pneumonia (recurrent); Z87.891 Personal history of nicotine dependence; Z87.440 Personal history of urinary (tract) infections; Z79.899 Other long term (current) drug therapy; Z79.82 Long term (current) use of aspirin; Z98.1 Arthrodesis status; Z88.5 Allergy status to narcotic agent; Z90.49 Acquired absence of other specified parts of digestive tract; Z90.710 Acquired absence of both cervix and uterus; Z82.49 Family history of ischemic heart disease and other diseases of the circulatory system
CPT/HCPCS: 96372; 96374; 99285; 36415; 93005; 83880; 80053; 83605; 84484; 85025; 85610; 85730; 87636; 71046; G0378 ×2; J1940; S0179; J1644

== ENCOUNTER 2021-10-18 11:03 | Inpatient (IN) | payer MEDICARE ==
--- NOTE | 2021-10-18 12:30 | XR ---
EXAMINATION TYPE: XR chest 2V DATE OF EXAM: 10/18/2021 COMPARISON: 10/04/2021 HISTORY: 89 year-old female shortness of breath, chest pain, dyspnea TECHNIQUE: AP and lateral views FINDINGS: S-shaped scoliosis. Atherosclerotic calcifications throughout the aorta. Heart normal size. Hyperinfl ation with continued diffuse medium interstitial opacity including some underlying reticulonodular de nsities. Interstitial changes in the lower lungs may be slightly increased. No sizable pleural effusi on. IMPRESSION: 1. Extensive reticular and reticulonodular densities on a background of COPD. Outpatient pulmonary me dicine referral would be prudent if there is no established diagnosis. The changes are relatively sim ilar to the prior. Consider etiologies such as mucociliary dysfunction, ABPA, chronic atypical infect ion, and chronic severe asthma. 2. Interstitial densities in the lower lungs may be slightly increased and some underlying mild acute infiltrate is difficult to entirely exclude. 3. S-shaped scoliosis.
--- NOTE | 2021-10-18 12:35 | ED ---
General Adult HPI - General Chief complaint: Shortness of Breath Stated complaint: SOB Time Seen by Provider: 10/18/21 11:20 Source: patient, family Mode of arrival: ambulatory Limitations: no limitations - History of Present Illness Initial comments: Dictation was produced using GO-[employer] dictation software. please excuse any grammatical, word or spelling errors. Chief Complaint: 89-year-old female past medical history of chronic bron chiectasis presents emergency department for back pain and shortness of breath. History of Present Illness: Chin is an 82-year-old female she presents to the emergency department with her 2 daughters. Patient for the last 2 weeks has been having shortness of breath. Last couple days she's been complaining of back pain. Patient has a history of chronic bronchiectasis. She has a history of bronchoscopy. She was seen by pulmonology for admission last year. She was recently admitted to the hospital earlier this month for similar complaint. She was observed in the hospital for one day and discharged. Patient had an echocardiogram that was performed in August of this year did not show any evidence of heart failure. Daughter is at the bedside reports that patient's legs do appear slightly swollen. The ROS documented in this emergency department record has been reviewed and confirmed by me. Those systems with pertinent positive or negative responses have been documented in the HPI. All other systems are other negative and/or noncontributory. PHYSICAL EXAM: General Impression: Alert and oriented x3, not in acute distress HEENT: Normocephalic atraumatic, extra-ocular movements intact, pupils equal and reactive to light bilaterally, mucous membranes moist. Cardiovascular: Heart regular rate and rhythm Chest: Able to complete full sentences, no retractions, no tachypnea, diffuse crackles Abdomen: abdomen soft, non-tender, non-distended, no organomegaly Musculoskeletal: Pulses present and equal in all extremities, no peripheral edema Motor: no focal deficits noted Neurological: CN II-XII grossly intact, no focal motor or sensory deficits noted Skin: Intact with no visualized rashes Psych: Normal affect and mood ED course: 89-year-old female multiple comorbidities and history of chronic bronchiectasis presents to the emergency department for shortness of breath and back pain. Signs upon arrival are within acceptable limits. Patient is in no acute distress. EKG shows no signs of ischemia or infarction. Laboratory evaluation obtained. Leukocytosis of 19.6. Hemoglobin of 9.9 which is around patient's baseline. Metabolic panel is unremarkable. No acidosis. Lactic acid level is normal. X-ray for the most part appears to be at baseline however unable to exclude acute infiltrate. Given the leukocytosis and complaint of shortness of breath is concern for pneumonia. Patient does have chronic lung disease. Patient would benefit from medical monitoring. Patient be admitted. Patient given Unasyn EKG interpretation: Ventricular rate 80, sinus rhythm,. Interval 170, QS 82, QTc 386. No LA prolongation, no QTC prolongation, no ST or T-wave changes noted. Findings of benign early repolarization in the precordial leads EKG compared to 10/04/2021 showing no changes. Overall, this EKG is unremarkable - Related Data Home Medications Medication Instructions Recorded Confirmed Carvedilol 25 mg PO BID 12/18/13 10/18/21 Multivitamin/Iron/Folic Acid 1 tab PO DAILY 11/17/15 10/18/21 [Centrum Complete Multivit Tab] Aspirin EC [Ecotrin Low Dose] 81 mg PO DAILY 09/16/18 10/18/21 Ezetimibe [Zetia] 10 mg PO HS 12/26/18 10/18/21 Simvastatin [Zocor] 20 mg PO HS 12/26/18 10/18/21 cloNIDine HCL [Catapres] 0.3 mg PO BID 12/26/18 10/18/21 Calcium Carbonate [Calcium] 600 mg PO DAILY 08/07/20 10/18/21 Cyanocobalamin (Vitamin B-12) 1,000 mcg PO DAILY 08/07/20 10/18/21 [Vitamin B-12] Mirabegron [Myrbetriq] 50 mg PO HS 08/07/20 10/18/21 Cholecalciferol [Vitamin D3 (25 25 mcg PO DAILY 10/22/20 10/18/21 Mcg = 1000 Iu)] Prednisolone Acetate/Pf 1 drop RIGHT EYE QID 07/07/21 10/18/21 [Prednisolone Acet 1% Eye Drop] Megestrol Acetate 400 mg PO DAILY 08/21/21 10/18/21 traZODone HCL [Desyrel] 50 mg PO HS 08/21/21 10/18/21 Azithromycin [Zithromax Z Pack] See Taper PO DAILY 10/18/21 10/18/21 Furosemide [Lasix] 20 mg PO BID 10/18/21 10/18/21 Previous Rx's Medication Instructions Recorded Potassium Chloride ER [K-Dur 20] 20 meq PO DAILY 30 Days #30 tab 08/16/21 LORazepam [Ativan] 0.5 mg PO TID PRN #90 tab 08/23/21 amLODIPine [Norvasc] 5 mg PO BID 90 Days #180 tab 08/23/21 Allergies Allergy/AdvReac Type Severity Reaction Status Date / Time oxycodone [From Percocet] Allergy Unknown Verified 10/18/21 12:54 codeine AdvReac Nausea & Verified 10/18/21 12:54 Vomiting meperidine HCl [From Demerol] AdvReac Nausea & Verified 10/18/21 12:54 Vomiting morphine AdvReac Nausea & Verified 10/18/21 12:54 Vomiting Review of Systems ROS Statement: Those systems with pertinent positive or pertinent negative responses have been documented in the HPI. ROS Other: All systems not noted in ROS Statement are negative. Past Medical History Past Medical History: Chest Pain / Angina, CVA/TIA, GERD/Reflux, Hyperlipidemia, Hypertension, Myocardial Infarction ([place]), Pneumonia, Syncope Additional Past Medical History / Comment(s): Past syncopal episodes, TIAs, UTIs, DJD spin, chronic back pain, arthritis hips and back, diverticular disease.urinary incontinence- wears briefs Last Myocardial Infarction Date:: 11/16/2010 History of Any Multi-Drug Resistant Organisms: None Reported Past Surgical History: Adenoidectomy, Appendectomy, Back Surgery, Cholecystectomy, Heart Catheterization, Hysterectomy, Tonsillectomy Additional Past Surgical History / Comment(s): cardiac caths in 2010 and 2013, back fusion/discectomy, colonoscopy, bilateral cataract removal with lens implants, Past Anesthesia/Blood Transfusion Reactions: Postoperative Nausea & Vomiting (PONV) Past Psychological History: Anxiety Smoking Status: Former smoker Past Alcohol Use History: None Reported Past Drug Use History: None Reported - Past Family History Father Additional Family Medical History / Comment(s): Father at the age of 57yrs with "heart problems". Mother Additional Family Medical History / Comment(s): Mother had an enlarged heart. She at the age of 79yrs. General Exam Limitations: no limitations Course Vital Signs 10/18/21 11:08 Temperature 98.5 F Pulse Rate 83 Respiratory 18 Rate Blood Pressure 186/78 O2 Sat by Pulse 94 L Oximetry Medical Decision Making - Lab Data Result diagrams: 10/18/21 12:59 10/18/21 12:59 Lab Results 10/18/21 10/18/21 10/18/21 Range/Units 12:59 12:59 12:59 WBC 19.6 H (3.8-10.6) k/uL RBC 3.31 L (3.80-5.40) m/uL Hgb 9.9 L (11.4-16.0) gm/dL Hct 30.7 L (34.0-46.0) % MCV 92.7 (80.0-100.0) fL MCH 29.8 (25.0-35.0) pg MCHC 32.2 (31.0-37.0) g/dL RDW 14.1 (11.5-15.5) % Plt Count 411 (150-450) k/uL MPV 7.8 Neutrophils % 88 % Lymphocytes % 7 % Monocytes % 4 % Eosinophils % 1 % Basophils % 0 % Neutrophils # 17.2 H (1.3-7.7) k/uL Lymphocytes # 1.4 (1.0-4.8) k/uL Monocytes # 0.8 (0-1.0) k/uL Eosinophils # 0.1 (0-0.7) k/uL Basophils # 0.1 (0-0.2) k/uL Sodium 136 L (137-145) mmol/L Potassium 4.3 (3.5-5.1) mmol/L Chloride 105 (98-107) mmol/L Carbon Dioxide 26 (22-30) mmol/L Anion Gap 5 mmol/L BUN 20 H (7-17) mg/dL Creatinine 1.00 (0.52-1.04) mg/dL Est GFR (CKD-EPI)AfAm 59 (>60 ml/min/1.73 sqM) Est GFR (CKD-EPI)NonAf 51 (>60 ml/min/1.73 sqM) Glucose 112 H (74-99) mg/dL Plasma Lactic Acid Romeo 0.9 (0.7-2.0) mmol/L Calcium 9.1 (8.4-10.2) mg/dL Disposition Clinical Impression: Pneumonia Disposition: ADMITTED IP TO THIS HOSP Condition: Fair Referrals: Uri Chaudhary MD [Primary Care Provider] - 1-2 days Decision Time: 14:32
[2021-10-18] MEDS ORDERED: LORazepam 2 MG/ML INJ IV STA (13:11)
[2021-10-18 13:31] LABS: Basophils # (A) 0.1 k/uL (0-0.2); Basophils % (A) 0 %; Eosinophils # (A) 0.1 k/uL (0-0.7); Eosinophils % (A) 1 %; HCT 30.7 % (34.0-46.0); HGB 9.9 gm/dL (11.4-16.0); Lymphocytes # (A) 1.4 k/uL (1.0-4.8); Lymphocytes % (A) 7 %; MCH 29.8 pg (25.0-35.0); MCHC 32.2 g/dL (31.0-37.0); MCV 92.7 fL (80.0-100.0); Mean Platelet Volume 7.8; Monocytes # (A) 0.8 k/uL (0-1.0); Monocytes % (A) 4 %; Neutrophils # (A) 17.2 k/uL (1.3-7.7); Neutrophils % (A) 88 %; Platelet Count 411 k/uL (150-450); RBC 3.31 m/uL (3.80-5.40); RDW 14.1 % (11.5-15.5); WBC 19.6 k/uL (3.8-10.6)
[2021-10-18 13:36] LABS: Calcium 9.1 mg/dL (8.4-10.2); Potassium 4.3 mmol/L (3.5-5.1)
[2021-10-18] MEDS ORDERED: AMPICILLIN-SULBACTAM 3 GM in SODIUM CHLORIDE 0.9% 100 ML IVPB STA (14:26)
[2021-10-18] MEDS ORDERED: NALOXONE 0.4 MG/ML 1 ML VIAL IV PRN (14:28)
[2021-10-18] MEDS ORDERED: ACETAMINOPHEN TAB 325 MG TAB PO PRN (14:28)
[2021-10-18] MEDS: SODIUM CHLORIDE 0.9% 1,000 ML IV SCH (15:44)
[2021-10-18] MEDS: carvediloL 12.5 MG TAB PO SCH (20:19)
[2021-10-18] MEDS: ATORVASTATIN 10 MG TAB PO SCH (20:19)
[2021-10-18] MEDS: EZETIMIBE 10 MG TAB PO SCH (20:19)
[2021-10-18] MEDS: amLODIPine 5 MG TAB PO SCH (20:19)
[2021-10-18] MEDS: LORazepam 0.5 MG TAB PO PRN (20:19)
[2021-10-18] MEDS: cloNIDine HCL 0.1 MG TAB PO SCH (20:19)
[2021-10-18] MEDS: traZODone HCL 50 MG TAB PO SCH (20:30)
[2021-10-18] MEDS: FUROSEMIDE 20 MG TAB PO SCH (20:30)
[2021-10-18] MEDS: NON FORMULARY DRUG (Mirabegron [Myrbetriq] 50 MG Tab.Er.24h) PO SCH (20:33)
[2021-10-18] MEDS: AMPICILLIN-SULBACTAM 3 GM in SODIUM CHLORIDE 0.9% 100 ML IVPB SCH (23:03)
[2021-10-18] MEDS: prednisoLONE ACETATE 1% OPHTH DROPS 5 ML BTL RIGHT EYE SCH (23:04)
[2021-10-19] MEDS: AMPICILLIN-SULBACTAM 3 GM in SODIUM CHLORIDE 0.9% 100 ML IVPB SCH ×2 (05:00→17:09)
[2021-10-19] MEDS: ASPIRIN 81 MG PO SCH (08:33)
[2021-10-19] MEDS: POTASSIUM CHLORIDE ER 20 MEQ TAB.ER PO SCH (08:33)
[2021-10-19] MEDS: amLODIPine 5 MG TAB PO SCH ×2 (08:33→21:33)
[2021-10-19] MEDS: cloNIDine HCL 0.1 MG TAB PO SCH ×2 (08:33→21:33)
[2021-10-19] MEDS: CHOLECALCIFEROL 25 MCG (1000 IU) TABLET PO SCH (08:33)
[2021-10-19] MEDS: CALCIUM CARBONATE 500 MG CHEWABLE PO SCH (08:33)
[2021-10-19] MEDS: CYANOCOBALAMIN 500 MCG TAB PO SCH (08:34)
[2021-10-19] MEDS: MEGESTROL 400 MG/10 ML CUP PO SCH (08:34)
[2021-10-19] MEDS: FUROSEMIDE 20 MG TAB PO SCH ×2 (08:34→15:26)
[2021-10-19] MEDS: MULTIVITAMINS, THERA 1 EACH TAB PO SCH (08:34)
[2021-10-19] MEDS: carvediloL 12.5 MG TAB PO SCH ×2 (08:34→21:34)
[2021-10-19] MEDS: prednisoLONE ACETATE 1% OPHTH DROPS 5 ML BTL RIGHT EYE SCH ×4 (08:35→21:34)
--- NOTE | 2021-10-19 08:57 | P.HPIM ---
History of Present Illness Chief Complaint: Cough and congestion. This is a history and physical an 89-year-old white female who struggles with ma lnutrition but is been living with her daughter. She states that she has been having worsening cough and congestion. Previous chest x-ray was nominal. However white count is not elevated and she has still considerable congestion. Low-grade fever stated. No significant nausea, vomiting or diarrhea. She has had significant cardiac workup in the past. Review of Systems Constitutional: Denies chills, Denies fever Eyes: denies blurred vision, denies pain Ears, nose, mouth and throat: Denies headache, Denies sore throat Cardiovascular: Denies chest pain, Denies shortness of breath Respiratory: Reports congestion, Reports cough Gastrointestinal: Denies abdominal pain, Denies diarrhea, Denies nausea, Denies vomiting Genitourinary: Denies dysuria, Denies hematuria Musculoskeletal: Denies myalgias Past Medical History Past Medical History: Chest Pain / Angina, CVA/TIA, GERD/Reflux, Hyperlipidemia, Hypertension, Myocardial Infarction ([place]), Pneumonia, Syncope Additional Past Medical History / Comment(s): Past syncopal episodes, TIAs, UTIs, DJD spin, chronic back pain, arthritis hips and back, diverticular di sease.urinary incontinence- wears briefs Last Myocardial Infarction Date:: 11/16/2010 History of Any Multi-Drug Resistant Organisms: None Reported Past Surgical History: Adenoidectomy, Appendectomy, Back Surgery, Cholecystect sal, Heart Catheterization, Hysterectomy, Tonsillectomy Additional Past Surgical History / Comment(s): cardiac caths in 2010 and 2013, back fusion/discectomy, colonoscopy, bilateral cataract removal with lens implants, Past Anesthesia/Blood Transfusion Reactions: Postoperative Nausea & Vomiting (PONV) Past Psychological History: Anxiety Additional Psychological History / Comment(s): takes ativan for anxiety Smoking Status: Former smoker Past Alcohol Use History: None Reported Additional Past Alcohol Use History / Comment(s): Pt states she started smoking in 1950 and quit in 1975. She will have an occasional glass of wine. Past Drug Use History: None Reported - Past Family History Father Additional Family Medical History / Comment(s): Father at the age of 57yrs with "heart problems". Mother Additional Family Medical History / Comment(s): Mother had an enlarged heart. She at the age of 79yrs. Medications and Allergies Home Medications Medication Instructions Recorded Confirmed Type Carvedilol 25 mg PO BID 12/18/13 10/18/21 History Multivitamin/Iron/Folic Acid 1 tab PO DAILY 11/17/15 10/18/21 History [Centrum Complete Multivit Tab] Aspirin EC [Ecotrin Low Dose] 81 mg PO DAILY 09/16/18 10/18/21 History Ezetimibe [Zetia] 10 mg PO HS 12/26/18 10/18/21 History Simvastatin [Zocor] 20 mg PO HS 12/26/18 10/18/21 History cloNIDine HCL [Catapres] 0.3 mg PO BID 12/26/18 10/18/21 History Calcium Carbonate [Calcium] 600 mg PO DAILY 08/07/20 10/18/21 History Cyanocobalamin (Vitamin B-12) 1,000 mcg PO DAILY 08/07/20 10/18/21 History [Vitamin B-12] Mirabegron [Myrbetriq] 50 mg PO HS 08/07/20 10/18/21 History Cholecalciferol [Vitamin D3 (25 25 mcg PO DAILY 10/22/20 10/18/21 History Mcg = 1000 Iu)] Prednisolone Acetate/Pf 1 drop RIGHT EYE QID 07/07/21 10/18/21 History [Prednisolone Acet 1% Eye Drop] Potassium Chloride ER [K-Dur 20] 20 meq PO DAILY 30 Days #30 tab 08/16/21 10/18/21 Rx Megestrol Acetate 400 mg PO DAILY 08/21/21 10/18/21 History traZODone HCL [Desyrel] 50 mg PO HS 08/21/21 10/18/21 History LORazepam [Ativan] 0.5 mg PO TID PRN #90 tab 08/23/21 10/18/21 Rx amLODIPine [Norvasc] 5 mg PO BID 90 Days #180 tab 08/23/21 10/18/21 Rx Azithromycin [Zithromax Z Pack] See Taper PO DAILY 10/18/21 10/18/21 History Furosemide [Lasix] 20 mg PO BID 10/18/21 10/18/21 History Allergies Allergy/AdvReac Type Severity Reaction Status Date / Time oxycodone [From Percocet] Allergy Unknown Verified 10/18/21 12:54 codeine AdvReac Nausea & Verified 10/18/21 12:54 Vomiting meperidine HCl [From Demerol] AdvReac Nausea & Verified 10/18/21 12:54 Vomiting morphine AdvReac Nausea & Verified 10/18/21 12:54 Vomiting Physical Exam Vitals: Vital Signs Temp Pulse Pulse Resp BP BP Pulse Ox 10/19/21 08:00 98.3 F 88 191/64 91 L 10/19/21 02:08 98.6 F 80 24 108/72 97 10/18/21 21:43 162/63 10/18/21 20:00 93 32 H 10/18/21 19:54 98.2 F 93 32 H 217/78 96 10/18/21 17:34 98.2 F 90 18 190/73 98 10/18/21 16:49 144/65 10/18/21 16:00 64 20 166/77 96 10/18/21 15:00 81 20 157/77 96 10/18/21 14:00 66 20 177/69 96 10/18/21 13:00 22 10/18/21 11:08 98.5 F 83 18 186/78 94 L Intake and Output 10/18/21 10/19/21 10/19/21 22:59 06:59 14:59 Other: Voiding Method Toilet # Voids 1 1 # Bowel Movements 0 Weight 43.545 kg - Constitutional General appearance: thin - EENT Eyes: no abnormal pupil - Neck Neck: no lymphadenopathy - Respiratory Respiratory: bilateral: diminished - Cardiovascular Rhythm: regular Heart sounds: normal: S1, S2 Abnormal Heart Sounds: no S3 Gallop - Gastrointestinal General gastrointestinal: scaphoid, soft - Integumentary Integumentary: no cellulitis - Musculoskeletal Musculoskeletal: generalized weakness - Psychiatric Psychiatric: A&O x's 3 Results CBC & Chem 7: 10/18/21 12:59 10/18/21 12:59 Labs: Abnormal Lab Results - Last 24 Hours (Table) 10/18/21 10/18/21 Range/Units 12:59 12:59 WBC 19.6 H (3.8-10.6) k/uL RBC 3.31 L (3.80-5.40) m/uL Hgb 9.9 L (11.4-16.0) gm/dL Hct 30.7 L (34.0-46.0) % Neutrophils # 17.2 H (1.3-7.7) k/uL Sodium 136 L (137-145) mmol/L BUN 20 H (7-17) mg/dL Glucose 112 H (74-99) mg/dL Thrombosis Risk Factor Assmnt - Choose All That Apply Any of the Below Risk Factors Present?: Yes Each Factor Represents 1 point: Abnormal pulmonary function (COPD) Other Risk Factors: Yes Each Risk Factor Represents 3 Points: Age 75 years or older Other congenital or acquired thrombophilia - If yes, enter type in comment: No Thrombosis Risk Factor Assessment Total Risk Factor Score: 4 Thrombosis Risk Factor Assessment Level: Moderate Risk Assessment and Plan (1) Pneumonia Current Visit: Yes Status: Acute Code(s): J18.9 - PNEUMONIA, UNSPECIFIED ORGANISM SNOMED Code(s): 321683578 (2) At risk for readmission to hospital Current Visit: No Status: Acute Code(s): Z91.89 - OTH PERSONAL RISK FACTORS, NOT ELSEWHERE CLASSIFIED SNOMED Code(s): 2398397007392 (3) Dyspnea on exertion Current Visit: No Status: Acute Code(s): R06.09 - OTHER FORMS OF DYSPNEA SNOMED Code(s): 98763973 (4) HTN (hypertension) Current Visit: No Status: Acute Code(s): I10 - ESSENTIAL (PRIMARY) HYPERTENSION SNOMED Code(s): 54397618 (5) Weakness Current Visit: No Status: Acute Code(s): R53.1 - WEAKNESS SNOMED Code(s): 32134998 Plan: Reconcile medications. Empiric anabiotic treatment given multiple authorizations and white count elevation. Check CBC and CMP in a.m. per Prognosis is guarded secondary to multiple comorbidities.
[2021-10-19] MEDS: LORazepam 0.5 MG TAB PO PRN ×3 (10:48→21:37)
[2021-10-19] MEDS: ALBUTEROL NEBULIZED 2.5 MG/3 ML INHALATION PRN ×2 (11:02→15:33)
[2021-10-19 13:49] VITALS: BMI 19.3
[2021-10-19] MEDS: SODIUM CHLORIDE 0.9% 1,000 ML IV SCH (15:26)
[2021-10-19] MEDS: ALBUTEROL NEBULIZED 2.5 MG/3 ML INHALATION SCH ×2 (17:15→19:20)
[2021-10-19] MEDS: EZETIMIBE 10 MG TAB PO SCH (21:33)
[2021-10-19] MEDS: traZODone HCL 50 MG TAB PO SCH (21:33)
[2021-10-19] MEDS: ATORVASTATIN 10 MG TAB PO SCH (21:34)
[2021-10-19] MEDS: NON FORMULARY DRUG (Mirabegron [Myrbetriq] 50 MG Tab.Er.24h) PO SCH (21:34)
[2021-10-20] MEDS: AMPICILLIN-SULBACTAM 3 GM in SODIUM CHLORIDE 0.9% 100 ML IVPB SCH ×2 (06:12→18:02)
[2021-10-20] MEDS: ALBUTEROL NEBULIZED 2.5 MG/3 ML INHALATION SCH ×2 (07:28→11:19)
[2021-10-20] MEDS: PANTOPRAZOLE 40 MG TABLET PO SCH (08:57)
[2021-10-20] MEDS: MULTIVITAMINS, THERA 1 EACH TAB PO SCH (08:57)
[2021-10-20] MEDS: cloNIDine HCL 0.1 MG TAB PO SCH ×2 (08:57→21:23)
[2021-10-20] MEDS: carvediloL 12.5 MG TAB PO SCH ×2 (08:59→21:24)
[2021-10-20] MEDS: ASPIRIN 81 MG PO SCH (08:59)
[2021-10-20] MEDS: CHOLECALCIFEROL 25 MCG (1000 IU) TABLET PO SCH (08:59)
[2021-10-20] MEDS: prednisoLONE ACETATE 1% OPHTH DROPS 5 ML BTL RIGHT EYE SCH ×4 (08:59→21:28)
[2021-10-20] MEDS: CALCIUM CARBONATE 500 MG CHEWABLE PO SCH (08:59)
[2021-10-20] MEDS: FUROSEMIDE 20 MG TAB PO SCH ×2 (08:59→17:43)
[2021-10-20] MEDS: MEGESTROL 400 MG/10 ML CUP PO SCH (08:59)
[2021-10-20] MEDS: amLODIPine 5 MG TAB PO SCH ×2 (08:59→21:24)
[2021-10-20] MEDS: POTASSIUM CHLORIDE ER 20 MEQ TAB.ER PO SCH (08:59)
[2021-10-20] MEDS: CYANOCOBALAMIN 500 MCG TAB PO SCH (08:59)
[2021-10-20 09:19] LABS: HCT 31.2 % (37.2-46.3); HGB 9.3 g/dL (12.0-15.0); MCH 27.9 pg (27.0-32.0); MCHC 29.8 g/dL (32.0-37.0); MCV 93.7 fL (80.0-97.0); NRBC Per 100 WBC 0 /100 WBCS (0.0-0.0); Platelet Count 404 X 10*3/uL (140-440); RBC 3.33 X 10*6/uL (4.10-5.20); WBC 16.46 X 10*3/uL (4.50-10.00)
[2021-10-20 11:29] LABS: ALT 6 U/L (8-44); AST 15 U/L (13-35); African American GFR (CKD) 46.7 (60.0-200.0); Albumin 2.6 g/dL (3.8-4.9); Albumin/Globulin Ratio 0.72 (1.60-3.17); Alkaline Phosphatase 90 U/L (41-126); BUN/Creat Ratio 12.75 Ratio (12.00-20.00); Blood Urea Nitrogen 15.3 mg/dL (9.0-27.0); Calcium 8.5 mg/dL (8.7-10.3); Carbon Dioxide 26.3 mmol/L (20.0-27.5); Chloride 101 mmol/L (96-109); Globulin 3.6 g/dL (1.6-3.3); Glucose 96 mg/dL (70-110); Non-African American GFR(CKD) 40.3 (60.0-200.0); Potassium 3.7 mmol/L (3.5-5.5); Sodium 138 mmol/L (135-145); Total Bilirubin <0.15 mg/dL (0.30-1.20); Total Protein 6.2 g/dL (6.2-8.2)
[2021-10-20] MEDS ORDERED: IPRATROPIUM-ALBUTEROL 3 ML NEB INHALATION PRN (12:28)
[2021-10-20] MEDS: LORazepam 0.5 MG TAB PO PRN ×2 (13:30→21:24)
[2021-10-20] MEDS: SODIUM CHLORIDE 0.9% 1,000 ML IV SCH (13:33)
[2021-10-20] MEDS: IPRATROPIUM-ALBUTEROL 3 ML NEB INHALATION SCH ×2 (15:33→20:41)
--- NOTE | 2021-10-20 17:51 | PN ---
PROGRESS NOTE DATE OF SERVICE: 10/20/2021 This 89-year-old woman had shortness of breath and possible bilateral pneumonia. The patient is on broad-spectrum IV antibiotics. Patient is still short of breath at this time. The patient is hypoxic also. Past medical history reviewed. Review of systems could not be taken because the patient is mildly confused. CURRENT MEDICATIONS: Reviewed. They include Unasyn, DuoNeb. Doses and the rest of the medications are noted. PHYSICAL EXAMINATION: Pulse is 84, blood pressure 150/86, respirations 17. HEENT: Conjunctivae normal. NECK: No jugular venous distention. CARDIOVASCULAR: S1, S2 muffled. RESPIRATION: Breath sounds diminished at the bases. A few scattered rhonchi and crackles. ABDOMEN: Soft, nontender. LEGS: No edema. No swelling. NERVOUS SYSTEM: No focal deficit. LABS: WBC 16.4. Other labs are noted. ASSESSMENT: 1. Bilateral pneumonia with shortness of breath. 2. History of hypertension. 3. Hyperlipidemia. 4. History of cerebrovascular accident. 5. Multiple medical issues. 6. Positive D-dimer. RECOMMENDATIONS AND DISCUSSION: In this 89-year-old woman who presented with multiple complex medical issues, we will monitor the patient closely. I would recommend to optimize the bronchodilator treatment. Also recommend pulmonary consultation. Ensure oxygenation. I would also recommend a D-dimer, and if the D-dimer is positive, I would also recommend CT angio of the chest. The prognosis is guarded because of multiple complex medical issues. Further recommendations to follow. See orders for details. Discussed with staff. MMODL / IJN: [id number] /
--- NOTE | 2021-10-20 20:50 | NM ---
EXAMINATION TYPE: NM pul vent and perfuse DATE OF EXAM: 10/20/2021 COMPARISON: NONE HISTORY: Short of breath TECHNIQUE: Utilizing inhalation of 65.8 mCi Tc 99m DTPA aerosol and intravenous injection of 5 mCi o f Tc 99m MAA, ventilation and perfusion images are acquired post injection in multiple projections. FINDINGS: There are large matching ventilation and perfusion defects involving the upper lung bang bilaterall y. There is no mismatch. The chest x-ray shows pulmonary interstitial fibrotic changes and COPD on ex am of 10/18/2021. 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 There is intermediate probability of pulm onary embolism.
[2021-10-20] MEDS: NON FORMULARY DRUG (Mirabegron [Myrbetriq] 50 MG Tab.Er.24h) PO SCH (21:14)
[2021-10-20] MEDS: traZODone HCL 50 MG TAB PO SCH (21:24)
[2021-10-20] MEDS: ATORVASTATIN 10 MG TAB PO SCH (21:24)
[2021-10-20] MEDS: EZETIMIBE 10 MG TAB PO SCH (21:24)
[2021-10-20] MEDS ORDERED: ENOXAPARIN 40 MG/0.4 ML SYRINGE SQ STA (23:29)
[2021-10-20] MEDS ORDERED: hydrALAZINE HCL 10 MG TAB PO PRN (23:29)
[2021-10-20] MEDS: hydrALAZINE HCL 10 MG TAB PO SCH (23:44)
[2021-10-21] MEDS: AMPICILLIN-SULBACTAM 3 GM in SODIUM CHLORIDE 0.9% 100 ML IVPB SCH (05:48)
[2021-10-21] MEDS: IPRATROPIUM-ALBUTEROL 3 ML NEB INHALATION SCH ×4 (07:26→20:41)
[2021-10-21] MEDS: POTASSIUM CHLORIDE ER 20 MEQ TAB.ER PO SCH (08:38)
[2021-10-21] MEDS: CYANOCOBALAMIN 500 MCG TAB PO SCH (08:38)
[2021-10-21] MEDS: CHOLECALCIFEROL 25 MCG (1000 IU) TABLET PO SCH (08:38)
[2021-10-21] MEDS: carvediloL 12.5 MG TAB PO SCH ×2 (08:38→18:14)
[2021-10-21] MEDS: hydrALAZINE HCL 10 MG TAB PO SCH ×2 (08:38→22:26)
[2021-10-21] MEDS: CALCIUM CARBONATE 500 MG CHEWABLE PO SCH (08:38)
[2021-10-21] MEDS: MULTIVITAMINS, THERA 1 EACH TAB PO SCH (08:38)
[2021-10-21] MEDS: FUROSEMIDE 20 MG TAB PO SCH ×2 (08:38→16:51)
[2021-10-21] MEDS: cloNIDine HCL 0.1 MG TAB PO SCH ×2 (08:38→22:26)
[2021-10-21] MEDS: amLODIPine 5 MG TAB PO SCH ×2 (08:38→22:27)
[2021-10-21] MEDS: PANTOPRAZOLE 40 MG TABLET PO SCH (08:38)
[2021-10-21] MEDS: ASPIRIN 81 MG PO SCH (08:39)
[2021-10-21] MEDS: prednisoLONE ACETATE 1% OPHTH DROPS 5 ML BTL RIGHT EYE SCH ×4 (08:39→22:27)
[2021-10-21] MEDS: MEGESTROL 400 MG/10 ML CUP PO SCH (08:39)
[2021-10-21 09:26] LABS: Basophils # (A) 0.08 X 10*3/uL (0.00-0.10); Basophils % (A) 0.5 %; Eosinophils # (A) 0.13 X 10*3/uL (0.04-0.35); Eosinophils % (A) 0.9 %; HCT 28.2 % (37.2-46.3); HGB 8.5 g/dL (12.0-15.0); Immature Grans, Automated 0.7 %; Lymphocytes # (A) 1.58 X 10*3/uL (0.90-5.00); Lymphocytes % (A) 10.8 %; MCH 27.9 pg (27.0-32.0); MCHC 30.1 g/dL (32.0-37.0); MCV 92.5 fL (80.0-97.0); Mean Platelet Volume 9.9 fL (9.5-12.2); Monocytes % (A) 8.9 %; NRBC Per 100 WBC 0 /100 WBCS (0.0-0.0); Neutrophils # (A) 11.49 X 10*3/uL (1.80-7.70); Neutrophils % (A) 78.2 %; Platelet Count 375 X 10*3/uL (140-440); RBC 3.05 X 10*6/uL (4.10-5.20); RDW 13.7 % (11.5-14.5); WBC 14.68 X 10*3/uL (4.50-10.00)
[2021-10-21] MEDS: LORazepam 0.5 MG TAB PO PRN ×3 (10:18→22:26)
--- NOTE | 2021-10-21 11:56 | P.CNPUL ---
History of Present Illness Consult date: 10/21/21 Requesting physician: Uri Chaudhary Reason for consult: dyspnea Chief complaint: Shortness of breath History of present illness: 89-year-old female patient, chronic smoker, with past medical history of COPD, chronic bronchiectasis with mucous plugging, previous episode of pneumonia, hypertension, dyslipidemia, CVA/TIA, who presented to the emergency department on 10/18/2021 planning of shortness of breath, and back pain. Her shortness of breath has been worsening over a period of 2 weeks. Patient had bronchoscopies in the past for removal of mucous plugs, and her BAL cultures from July 2020 were positive for pseudomonas aeruginosa that was resistant to Levaquin and ciprofloxacin. Chest x-ray at admission showed extensive reticular and reticulonodular densities on the background of COPD, interstitial densities in the lower lungs that were slightly increased. Patient had leukocytosis with a white blood cell count of 19.6, hemoglobin of 9.9, sodium is 136, potassium is 4.3, chloride is 105, B1 is 20 creatinine is 1.0, proBNP was 895, LFTs were unremarkable, influenza A and B, RSV and COVID-19 were all negative. Patient denied any fever or chills, she does report coughing and shortness of breath, patient denies any hemoptysis, patient had a d-dimer of 2.48 and VQ scan was ord ered showing multiple large matching defects with severe airway disease, and this was an intermediate probability V/Q scan for pulmonary embolism. Patient had been on Unasyn for antibiotic coverage, and breathing treatments. We are asked to see the patient and consultation in regards to shortness of breath, probable pneumonia, and intermediate probability VQ scan Review of Systems All systems: negative Constitutional: Denies chills, Denies fever Eyes: denies blurred vision, denies pain Ears, nose, mouth and throat: Denies headache, Denies sore throat Cardiovascular: Denies chest pain, Denies shortness of breath Respiratory: Reports cough, Reports dyspnea Gastrointestinal: Denies abdominal pain, Denies diarrhea, Denies nausea, Denies vomiting Genitourinary: Denies dysuria, Denies hematuria Musculoskeletal: Denies myalgias Integumentary: Denies pruritus, Denies rash Neurological: Denies numbness, Denies weakness Psychiatric: Denies anxiety, Denies depression Endocrine: Denies fatigue, Denies weight change Past Medical History Past Medical History: Chest Pain / Angina, CVA/TIA, GERD/Reflux, Hyperlipidemia, Hypertension, Myocardial Infarction ([place]), Pneumonia, Syncope Additional Past Medical History / Comment(s): Past syncopal episodes, TIAs, UTIs, DJD spin, chronic back pain, arthritis hips and back, diverticular disease.urinary incontinence- wears briefs Last Myocardial Infarction Date:: 11/16/2010 History of Any Multi-Drug Resistant Organisms: None Reported Past Surgical History: Adenoidectomy, Appendectomy, Back Surgery, Cholecystectomy, Heart Catheterization, Hysterectomy, Tonsillectomy Additional Past Surgical History / Comment(s): cardiac caths in 2010 and 2013, back fusion/discectomy, colonoscopy, bilateral cataract removal with lens implants, Past Anesthesia/Blood Transfusion Reactions: Postoperative Nausea & Vomiting (PONV) Past Psychological History: Anxiety Additional Psychological History / Comment(s): takes ativan for anxiety Smoking Status: Former smoker Past Alcohol Use History: None Reported Additional Past Alcohol Use History / Comment(s): Pt states she started smoking in 1949 and quit in 1975. She will have an occasional glass of wine. Past Drug Use History: None Reported - Past Family History Father Additional Family Medical History / Comment(s): Father at the age of 57yrs with "heart problems". Mother Additional Family Medical History / Comment(s): Mother had an enlarged heart. She at the age of 79yrs. Medications and Allergies Home Medications Medication Instructions Recorded Confirmed Type Carvedilol 25 mg PO BID 12/18/13 10/18/21 History Multivitamin/Iron/Folic Acid 1 tab PO DAILY 11/17/15 10/18/21 History [Centrum Complete Multivit Tab] Aspirin EC [Ecotrin Low Dose] 81 mg PO DAILY 09/16/18 10/18/21 History Ezetimibe [Zetia] 10 mg PO HS 12/26/18 10/18/21 History Simvastatin [Zocor] 20 mg PO HS 12/26/18 10/18/21 History cloNIDine HCL [Catapres] 0.3 mg PO BID 12/26/18 10/18/21 History Calcium Carbonate [Calcium] 600 mg PO DAILY 08/07/20 10/18/21 History Cyanocobalamin (Vitamin B-12) 1,000 mcg PO DAILY 08/07/20 10/18/21 History [Vitamin B-12] Mirabegron [Myrbetriq] 50 mg PO HS 08/07/20 10/18/21 History Cholecalciferol [Vitamin D3 (25 25 mcg PO DAILY 10/22/20 10/18/21 History Mcg = 1000 Iu)] Prednisolone Acetate/Pf 1 drop RIGHT EYE QID 07/07/21 10/18/21 History [Prednisolone Acet 1% Eye Drop] Potassium Chloride ER [K-Dur 20] 20 meq PO DAILY 30 Days #30 tab 08/16/21 10/18/21 Rx Megestrol Acetate 400 mg PO DAILY 08/21/21 10/18/21 History traZODone HCL [Desyrel] 50 mg PO HS 08/21/21 10/18/21 History LORazepam [Ativan] 0.5 mg PO TID PRN #90 tab 08/23/21 10/18/21 Rx amLODIPine [Norvasc] 5 mg PO BID 90 Days #180 tab 08/23/21 10/18/21 Rx Azithromycin [Zithromax Z Pack] See Taper PO DAILY 10/18/21 10/18/21 History Furosemide [Lasix] 20 mg PO BID 10/18/21 10/18/21 History Allergies Allergy/AdvReac Type Severity Reaction Status Date / Time oxycodone [From Percocet] Allergy Unknown Verified 10/18/21 12:54 codeine AdvReac Nausea & Verified 10/18/21 12:54 Vomiting meperidine HCl [From Demerol] AdvReac Nausea & Verified 10/18/21 12:54 Vomiting morphine AdvReac Nausea & Verified 10/18/21 12:54 Vomiting Physical Exam Vitals: Vital Signs Temp Pulse Pulse Resp BP Pulse Ox 10/21/21 11:03 90 18 10/21/21 10:50 88 18 10/21/21 08:37 19 10/21/21 07:47 97.8 F 88 19 197/50 91 L 10/21/21 07:37 92 10/21/21 07:28 92 L 10/21/21 07:26 87 10/21/21 00:35 97.9 F 74 17 138/67 93 L 10/20/21 21:50 98.8 F 86 17 172/73 96 10/20/21 20:00 98.2 F 86 17 199/77 95 10/20/21 15:44 85 10/20/21 15:33 84 10/20/21 14:15 99.1 F 79 16 150/67 96 Intake and Output 10/20/21 10/21/21 10/21/21 22:59 06:59 14:59 Other: Voiding Method Toilet Toilet Diaper # Voids 5 3 # Bowel Movements 1 0 GENERAL EXAM: Alert, very pleasant, 89-year-old white female, on 2 L of oxygen pulse ox of 91%, comfortable in no apparent distress. HEAD: Normocephalic/atraumatic. EYES: Normal reaction of pupils, equal size. Conjunctiva pink, sclera white. NOSE: Clear with pink turbinates. THROAT: No erythema or exudates. NECK: No masses, no JVD, no thyroid enlargement, no adenopathy. CHEST: No chest wall deformity. Symmetrical expansion. LUNGS: Equal air entry with bibasilar crackles CVS: Regular rate and rhythm, normal S1 and S2, no gallops, no murmurs, no rubs ABDOMEN: Soft, nontender. No hepatosplenomegaly, normal bowel sounds, no guarding or rigidity. EXTREMITIES: No clubbing, no edema, no cyanosis, 2+ pulses and upper and lower extremities. MUSCULOSKELETAL: Muscle strength and tone normal. SPINE: No scoliosis or deformity SKIN: No rashes CENTRAL NERVOUS SYSTEM: Alert and oriented -3. No focal deficits, tone is normal in all 4 extremities. PSYCHIATRIC: Alert and oriented -3. Appropriate affect. Intact judgment and insight. Results - Laboratory Findings CBC and BMP: 10/21/21 06:03 10/20/21 06:03 PT/INR, D-dimer D-Dimer 2.48 mg/L FEU (<0.60) H 10/20/21 12:41 Abnormal lab findings: Abnormal Labs 10/18/21 10/18/21 10/20/21 12:59 12:59 06:03 WBC 19.6 H 16.46 H RBC 3.31 L 3.33 L Hgb 9.9 L 9.3 L Hct 30.7 L 31.2 L MCHC 29.8 L Immature Gran # Neutrophils # 17.2 H Monocytes # D-Dimer Sodium 136 L BUN 20 H Est GFR (CKD-EPI)AfAm Est GFR (CKD-EPI)NonAf Glucose 112 H Calcium Total Bilirubin ALT Albumin Globulin Albumin/Globulin Ratio 10/20/21 10/20/21 10/21/21 06:03 12:41 06:03 WBC 14.68 H RBC 3.05 L Hgb 8.5 L Hct 28.2 L MCHC 30.1 L Immature Gran # 0.10 H Neutrophils # 11.49 H Monocytes # 1.30 H D-Dimer 2.48 H Sodium BUN Est GFR (CKD-EPI)AfAm 46.7 L Est GFR (CKD-EPI)NonAf 40.3 L Glucose Calcium 8.5 L Total Bilirubin <0.15 L ALT 6 L Albumin 2.6 L Globulin 3.6 H Albumin/Globulin Ratio 0.72 L - Diagnostic Findings Chest x-ray: report reviewed, image reviewed Additional studies: EKG, labs, and a VQ scan reviewed Assessment and Plan Plan: Assessment: #1. Acute hypoxic respiratory failure related to acute pneumonia, possibly related to pseudomonas aeruginosa. Chest x-ray showing extensive reticular and reticular nodular densities and interstitial densities in the lower lungs, influenza A and B, COVID-19, and RSV were negative #2. History of COPD and chronic bronchiectasis with mucous plugging #3. Previous history of Pseudomonas aeruginosa pulmonary infections #4. Former smoker #5. Intermediate probability VQ scan, nondiagnostic in view of abnormal chest x-ray #6. Hypertension #7. Hyperlipidemia #8. History of CVA/TIA #9. Anxiety #10. Chronic back pain Plan: Patient's presentation is more consistent with pneumonia, possibly related to pseudomonal infection We'll switch her antibiotic coverage to Zosyn We will try to obtain sputum for culture VQ scan was nondiagnostic in view of abnormal chest x-ray Continue prophylactic anticoagulation May check lower extremity Dopplers We'll continue to follow patient's clinical course I have personally seen and examined the patient, performed the documentation and the assessment and plan as written. Number of minutes spent on the visit: [15] Time with Patient: Greater than 30
[2021-10-21] MEDS: PIPERACILLIN-TAZOBACTAM 3.375 GM in SODIUM CHLORIDE 0.9% 100 ML IVPB SCH ×2 (13:07→19:36)
--- NOTE | 2021-10-21 13:24 | US ---
EXAMINATION TYPE: US venous doppler duplex LE BI DATE OF EXAM: 10/21/2021 1:13 PM COMPARISON: NONE CLINICAL HISTORY: elevated d-dimer. SIDE PERFORMED: Bilateral TECHNIQUE: The lower extremity deep venous system is examined utilizing real time linear array sonog malik with graded compression, doppler sonography and color-flow sonography. VESSELS IMAGED: Common Femoral Vein Deep Femoral Vein Greater Saphenous Vein * Femoral Vein Popliteal Vein Small Saphenous Vein * Proximal Calf Veins (* superficial vessels) Right Leg: Negative for DVT Left Leg: Negative for DVT IMPRESSION: 1. Bilateral lower extremity ultrasound negative for deep venous thrombosis.
--- NOTE | 2021-10-21 15:08 | PN ---
PROGRESS NOTE DATE OF SERVICE: 10/21/2021 This 89-year-old woman who was admitted with bilateral pneumonia is being closely monitored. No chest pain. No palpitations. No fever. PHYSICAL EXAMINATION: Pulse is 98, blood pressure ntd, respiration 19. HEENT: Conjunctivae normal. NECK: No jugular venous distention. CARDIOVASCULAR: S1, S2 muffled. RESPIRATION: Breath sounds diminished at the bases. A few scattered rhonchi and crackles. ABDOMEN: Soft, nontender. LEGS: No edema. No swelling. NERVOUS SYSTEM: No focal deficit. LABS: Reviewed. WBC 14.68. ASSESSMENT: 1. Acute bilateral pneumonia with shortness of breath. 2. Hypertension. 3. Hyperlipidemia. 4. History of cerebrovascular accident. 5. Multiple medical issues. RECOMMENDATIONS AND DISCUSSION: I recommend to continue current medications, continue with the monitoring, symptomatic treatment. Closely follow with Pulmonary. Guarded prognosis. See orders for further details. Will add Lopressor to the current regimen. MMODL / IJN: [id number] / MTDD
[2021-10-21] MEDS: SODIUM CHLORIDE 0.9% 1,000 ML IV SCH (18:07)
[2021-10-21] MEDS: EZETIMIBE 10 MG TAB PO SCH (22:26)
[2021-10-21] MEDS: traZODone HCL 50 MG TAB PO SCH (22:26)
[2021-10-21] MEDS: ATORVASTATIN 10 MG TAB PO SCH (22:27)
[2021-10-21] MEDS: ENOXAPARIN 40 MG/0.4 ML SYRINGE SQ SCH (22:27)
[2021-10-21] MEDS: NON FORMULARY DRUG (Mirabegron [Myrbetriq] 50 MG Tab.Er.24h) PO SCH (22:27)
[2021-10-22] MEDS: PIPERACILLIN-TAZOBACTAM 3.375 GM in SODIUM CHLORIDE 0.9% 100 ML IVPB SCH ×3 (04:04→20:17)
--- NOTE | 2021-10-22 08:00 | P.PN ---
Subjective Progress Note Date: 10/22/21 Principal diagnosis: Respiratory distress The patient is an 89-year-old white female who has been coming in with COPD and end-stage respiratory distress. She feels much better but is still weak. Element of malnutrition. Appreciate pulmonology input. VQ scan was indeterminate Objective - Vital Signs Vital signs: Vital Signs Temp 98.2 F 10/22/21 01:56 Pulse 87 10/22/21 01:56 Resp 18 10/22/21 01:56 BP 136/72 10/22/21 01:56 Pulse Ox 98 10/22/21 01:56 FiO2 Intake & Output 10/21/21 10/22/21 10/22/21 18:59 06:59 18:59 Other: Voiding Method Toilet Toilet Diaper Diaper # Voids 5 5 # Bowel Movements 2 1 - Constitutional General appearance: Present: thin - EENT Eyes: Absent: abnormal pupil - Neck Neck: Absent: lymphadenopathy - Respiratory Respiratory: right: rales, rhonchi, bilateral: diminished - Cardiovascular Rhythm: regular Heart sounds: normal: S1, S2 Abnormal Heart Sounds: Absent: S3 Gallop - Gastrointestinal General gastrointestinal: Present: soft. Absent: tenderness - Integumentary Integumentary: Absent: cellulitis - Psychiatric Psychiatric: Present: A&O x's 3 - Labs CBC & Chem 7: 10/21/21 06:03 10/20/21 06:03 Labs: Abnormal Lab Results - Last 24 Hours (Table) 10/21/21 10/21/21 Range/Units 06:03 06:03 WBC 14.68 H (4.50-10.00) X 10*3/uL RBC 3.05 L (4.10-5.20) X 10*6/uL Hgb 8.5 L (12.0-15.0) g/dL Hct 28.2 L (37.2-46.3) % MCHC 30.1 L (32.0-37.0) g/dL Immature Gran # 0.10 H (0.00-0.04) X 10*3/uL Neutrophils # 11.49 H (1.80-7.70) X 10*3/uL Monocytes # 1.30 H (0.20-1.00) X 10*3/uL Procalcitonin 0.11 H (0.02-0.09) ng/mL Microbiology - Last 24 Hours (Table) 10/18/21 15:30 Blood Culture - Preliminary Blood No Growth after 72 hours 10/18/21 15:15 Blood Culture - Preliminary Blood No Growth after 72 hours Assessment and Plan (1) Pneumonia Current Visit: Yes Status: Acute Code(s): J18.9 - PNEUMONIA, UNSPECIFIED ORGANISM SNOMED Code(s): 381709183 (2) At risk for readmission to hospital Current Visit: No Status: Acute Code(s): Z91.89 - OTH PERSONAL RISK FACTORS, NOT ELSEWHERE CLASSIFIED SNOMED Code(s): 0492772013306 (3) Dyspnea on exertion Current Visit: No Status: Acute Code(s): R06.09 - OTHER FORMS OF DYSPNEA SNOMED Code(s): 67129976 (4) HTN (hypertension) Current Visit: No Status: Acute Code(s): I10 - ESSENTIAL (PRIMARY) HYPERTENSION SNOMED Code(s): 68383588 (5) Weakness Current Visit: No Status: Acute Code(s): R53.1 - WEAKNESS SNOMED Code(s): 12837930 Plan: Reconcile medications. The patient now on Zosyn. Check CBC and CMP in a.m. Prognosis is guarded secondary to multiple comorbidities.
[2021-10-22] MEDS: IPRATROPIUM-ALBUTEROL 3 ML NEB INHALATION SCH ×4 (09:38→19:18)
[2021-10-22] MEDS: ASPIRIN 81 MG PO SCH (11:13)
[2021-10-22] MEDS: CYANOCOBALAMIN 500 MCG TAB PO SCH (11:13)
[2021-10-22] MEDS: MULTIVITAMINS, THERA 1 EACH TAB PO SCH (11:13)
[2021-10-22] MEDS: MEGESTROL 400 MG/10 ML CUP PO SCH (11:13)
[2021-10-22] MEDS: CHOLECALCIFEROL 25 MCG (1000 IU) TABLET PO SCH (11:13)
[2021-10-22] MEDS: cloNIDine HCL 0.1 MG TAB PO SCH ×2 (11:14→20:16)
[2021-10-22] MEDS: carvediloL 12.5 MG TAB PO SCH ×2 (11:14→18:20)
[2021-10-22] MEDS: amLODIPine 5 MG TAB PO SCH ×2 (11:14→20:16)
[2021-10-22] MEDS: FUROSEMIDE 20 MG TAB PO SCH ×2 (11:14→18:20)
[2021-10-22] MEDS: CALCIUM CARBONATE 500 MG CHEWABLE PO SCH (11:14)
[2021-10-22] MEDS: POTASSIUM CHLORIDE ER 20 MEQ TAB.ER PO SCH (11:14)
[2021-10-22] MEDS: hydrALAZINE HCL 10 MG TAB PO SCH ×2 (11:14→20:16)
[2021-10-22] MEDS: prednisoLONE ACETATE 1% OPHTH DROPS 5 ML BTL RIGHT EYE SCH ×4 (11:15→21:59)
[2021-10-22] MEDS: PANTOPRAZOLE 40 MG TABLET PO SCH (11:15)
--- NOTE | 2021-10-22 13:00 | P.PN ---
Subjective Progress Note Date: 10/22/21 Principal diagnosis: Cough, shortness of breath 89-year-old female patient, chronic smoker, with past medical history of COPD, chronic bronchiectasis with mucous plugging, previous episode of pneumonia, hypertension, dyslipidemia, CVA/TIA, who presented to the emergency department on 10/18/2021 planning of shortness of breath, and back pain. Her shortness of breath has been worsening over a period of 2 weeks. Patient had bronchoscopies in the past for removal of mucous plugs, and her BAL cultures from July 2020 were positive for pseudomonas aeruginosa that was resistant to Levaquin and ciprofloxacin. Chest x-ray at admission showed extensive reticular and reticulonodular densities on the background of COPD, interstitial densities in the lower lungs that were slightly increased. Patient had leukocytosis with a white blood cell count of 19.6, hemoglobin of 9.9, sodium is 136, potassium is 4.3, chloride is 105, B1 is 20 creatinine is 1.0, proBNP was 895, LFTs were unremarkable, influenza A and B, RSV and COVID-19 were all negative. Patient denied any fever or chills, she does report coughing and shortness of breath, patient denies any hemoptysis, patient had a d-dimer of 2.48 and VQ scan was ordered showing multiple large matching defects with severe airway disease, and this was an intermediate probability V/Q scan for pulmonary embolism. Patient had been on Unasyn for antibiotic coverage, and breathing treatments. We are asked to see the patient and consultation in regards to shortness of breath, probable pneumonia, and intermediate probability VQ scan On 10/22/2021 patient seen in follow-up on medical surgical floor. Patient is sitting up in the recliner, she has a congested cough, she was able to provide a sputum sample which was sent for culture. However her cough is fairly weak, and is difficult with the patient to clear secretions. Lung sounds reveal diffuse rhonchi, patient is on room air satting 90 percent, she is on Zosyn for a ntibiotic coverage in view of past history of pseudomonal infections. Awaiting sputum culture results. Vital signs have been stable, she's been afebrile. Denies any hemoptysis or chest discomfort. Today's labs have been reviewed Objective - Vital Signs Vital signs: Vital Signs Temp 98.5 F 08/01/22 08:00 Pulse 72 10/22/21 11:54 Resp 18 10/22/21 08:00 BP 156/67 10/22/21 08:00 Pulse Ox 90 L 10/22/21 08:00 FiO2 Intake & Output 10/21/21 10/22/21 10/22/21 18:59 06:59 18:59 Other: Voiding Method Toilet Toilet Diaper Diaper # Voids 5 5 # Bowel Movements 2 1 - Exam GENERAL EXAM: Alert, very pleasant, 89-year-old white female, on 2 L of oxygen pulse ox of 91%, comfortable in no apparent distress. HEAD: Normocephalic/atraumatic. EYES: Normal reaction of pupils, equal size. Conjunctiva pink, sclera white. NOSE: Clear with pink turbinates. THROAT: No erythema or exudates. NECK: No masses, no JVD, no thyroid enlargement, no adenopathy. CHEST: No chest wall deformity. Symmetrical expansion. LUNGS: Equal air entry with bibasilar crackles CVS: Regular rate and rhythm, normal S1 and S2, no gallops, no murmurs, no rubs ABDOMEN: Soft, nontender. No hepatosplenomegaly, normal bowel sounds, no guarding or rigidity. EXTREMITIES: No clubbing, no edema, no cyanosis, 2+ pulses and upper and lower extremities. MUSCULOSKELETAL: Muscle strength and tone normal. SPINE: No scoliosis or deformity SKIN: No rashes CENTRAL NERVOUS SYSTEM: Alert and oriented -3. No focal deficits, tone is normal in all 4 extremities. PSYCHIATRIC: Alert and oriented -3. Appropriate affect. Intact judgment and insight. - Labs CBC & Chem 7: 10/21/21 06:03 10/20/21 06:03 Labs: Microbiology - Last 24 Hours (Table) 10/18/21 15:30 Blood Culture - Preliminary Blood No Growth after 72 hours 10/18/21 15:15 Blood Culture - Preliminary Blood No Growth after 72 hours Assessment and Plan Plan: Assessment: #1. Acute hypoxic respiratory failure related to acute pneumonia, possibly related to pseudomonas aeruginosa. Chest x-ray showing extensive reticular and reticular nodular densities and interstitial densities in the lower lungs, influenza A and B, COVID-19, and RSV were negative #2. History of COPD and chronic bronchiectasis with mucous plugging #3. Previous history of Pseudomonas aeruginosa pulmonary infections #4. Former smoker #5. Intermediate probability VQ scan, nondiagnostic in view of abnormal chest x-ray #6. Hypertension #7. Hyperlipidemia #8. History of CVA/TIA #9. Anxiety #10. Chronic back pain Plan: Continue current antibiotic coverage Continue nebulized treatments Flutter valve to help mobilize secretions Will await sputum cultures Lower extremity Dopplers were negative for DVT Continue GI and prophylactic DVT prophylaxis We'll continue to follow If patient continues with chest congestion and inability to clear secretions we may consider bronchoscopy with BAL I have personally seen and examined the patient, performed the documentation and the assessment and plan as written. Number of minutes spent on the visit: [15] Time with Patient: Less than 30
--- NOTE | 2021-10-22 13:01 | CDI ---
Documentation Clarification Form Date: 10/22/2021 12:32:47 PM From: Daina Elder RN CCDS Admit Date: 10/18/2021 02:28:00 PM Patient Name: Oumou Mazariegos Visit Number: [id number] Discharge Date: ATTENTION: The Clinical Documentation Specialists (CDI) and [facility] Coding Staff appreciate your assistance in clarifying documentation. Please respond to the clarification below the line at the bottom and electronically sign. The CDI & [facility] Coding staff will review the response and follow-up if needed. Please note: Queries are made part of the Legal Health Record. If you have any questions, please contact the author of this message via ITS. Dr. Uri Chaudhary Malnutrition is documented 10/22, Progress Note. Additional clarification regarding the severity of malnutrition is requested. History/Risk Factors: 89-year-old female admitted with Pneumonia, Malnutrition, Dyspnea, HTN and weakness. Medical History: COPD, HTN and HLD. Clinical Indicators: Nutritional Consult: Current BMI: 19.3; Hgt 4ft 11inch Wgt 43.545kg Calculated Physical Findings: Emaciated; Severe muscle / fat wasting (orbital / temporalis/ buccal /pectoralis / deltoids) Nutrition assessment: concerns of under feeding; appetite has not been great for a while. Fair and 25% consumed. Treatment: Regular diet; Monitor supplement intake; Monitor oral nutrition intake; General / healthful diet. Megace po and monitor Chemistry labs. Dietary Consult: See above Supplements: Ensure compact BID Please clarify the type of malnutrition, if known: [ x] Severe Protein-Calorie Malnutrition [ ] Other condition, please specify [ ] Unable to Determine (Template Last Revised: May 2020) MTDD
[2021-10-22] MEDS: ATORVASTATIN 10 MG TAB PO SCH (20:16)
[2021-10-22] MEDS: EZETIMIBE 10 MG TAB PO SCH (20:16)
[2021-10-22] MEDS: ENOXAPARIN 40 MG/0.4 ML SYRINGE SQ SCH (20:17)
[2021-10-22] MEDS: NON FORMULARY DRUG (Mirabegron [Myrbetriq] 50 MG Tab.Er.24h) PO SCH (20:18)
[2021-10-22] MEDS: LORazepam 0.5 MG TAB PO PRN (21:59)
[2021-10-22] MEDS: traZODone HCL 50 MG TAB PO SCH (21:59)
[2021-10-23] MEDS: SODIUM CHLORIDE 0.9% 1,000 ML IV SCH ×2 (00:52→19:54)
[2021-10-23] MEDS: PIPERACILLIN-TAZOBACTAM 3.375 GM in SODIUM CHLORIDE 0.9% 100 ML IVPB SCH ×3 (05:02→19:55)
[2021-10-23] MEDS: PANTOPRAZOLE 40 MG TABLET PO SCH (07:27)
[2021-10-23] MEDS: carvediloL 12.5 MG TAB PO SCH ×2 (07:27→19:48)
[2021-10-23] MEDS: IPRATROPIUM-ALBUTEROL 3 ML NEB INHALATION SCH ×4 (08:49→20:14)
--- NOTE | 2021-10-23 09:07 | P.PN ---
Subjective Principal diagnosis: Respiratory distress The patient is an 89-year-old white female who has been coming in with COPD and end-stage respiratory distress. She feels much better but is still weak. Element of malnutrition. Appreciate pulmonology input. VQ scan was indeterminate Objective - Vital Signs Vital signs: Vital Signs Temp 98.2 F 10/23/21 02:00 Pulse 88 10/23/21 09:00 Resp 18 10/23/21 02:00 BP 134/68 10/23/21 02:00 Pulse Ox 95 10/23/21 02:00 FiO2 Intake & Output 10/22/21 10/23/21 10/23/21 18:59 06:59 18:59 Output Total 450 Balance -450 Weight 43.545 kg Output: Urine 450 Other: Voiding Method Toilet Toilet Diaper Diaper # Voids 4 1 # Bowel Movements 2 - Constitutional General appearance: Present: thin - EENT Eyes: Absent: abnormal pupil - Neck Neck: Absent: lymphadenopathy - Respiratory Respiratory: right: rales, bilateral: diminished - Cardiovascular Rhythm: regular Heart sounds: normal: S1, S2 Abnormal Heart Sounds: Absent: S3 Gallop - Gastrointestinal General gastrointestinal: Present: soft. Absent: tenderness - Psychiatric Psychiatric: Present: A&O x's 3 - Labs CBC & Chem 7: 10/21/21 06:03 10/20/21 06:03 Labs: Microbiology - Last 24 Hours (Table) 10/18/21 15:30 Blood Culture - Preliminary Blood No Growth after 96 hours 10/18/21 15:15 Blood Culture - Preliminary Blood No Growth after 96 hours Assessment and Plan (1) Pneumonia Current Visit: Yes Status: Acute Code(s): J18.9 - PNEUMONIA, UNSPECIFIED ORGANISM SNOMED Code(s): 754859928 (2) At risk for readmission to hospital Current Visit: No Status: Acute Code(s): Z91.89 - OTH PERSONAL RISK FACTORS, NOT ELSEWHERE CLASSIFIED SNOMED Code(s): 8036760205443 (3) Dyspnea on exertion Current Visit: No Status: Acute Code(s): R06.09 - OTHER FORMS OF DYSPNEA SNOMED Code(s): 16161173 (4) HTN (hypertension) Current Visit: No Status: Acute Code(s): I10 - ESSENTIAL (PRIMARY) HYPERTENSION SNOMED Code(s): 27477207 (5) Weakness Current Visit: No Status: Acute Code(s): R53.1 - WEAKNESS SNOMED Code(s): 11977834 Plan: Reconcile medications. The patient now on appropriate antibiotic treatment Check CBC and CMP in a.m. Prognosis is guarded secondary to multiple comorbidities. Hopefully we can discharge the next 24-48 hours but she is so frail
[2021-10-23] MEDS: LORazepam 0.5 MG TAB PO PRN ×2 (09:14→16:13)
[2021-10-23] MEDS: FUROSEMIDE 20 MG TAB PO SCH ×2 (09:15→16:13)
[2021-10-23] MEDS: CALCIUM CARBONATE 500 MG CHEWABLE PO SCH (09:15)
[2021-10-23] MEDS: POTASSIUM CHLORIDE ER 20 MEQ TAB.ER PO SCH (09:15)
[2021-10-23] MEDS: CHOLECALCIFEROL 25 MCG (1000 IU) TABLET PO SCH (09:15)
[2021-10-23] MEDS: CYANOCOBALAMIN 500 MCG TAB PO SCH (09:15)
[2021-10-23] MEDS: MULTIVITAMINS, THERA 1 EACH TAB PO SCH (09:15)
[2021-10-23] MEDS: ASPIRIN 81 MG PO SCH (09:15)
[2021-10-23] MEDS: hydrALAZINE HCL 10 MG TAB PO SCH ×2 (09:15→20:02)
[2021-10-23] MEDS: cloNIDine HCL 0.1 MG TAB PO SCH ×2 (09:16→20:00)
[2021-10-23] MEDS: MEGESTROL 400 MG/10 ML CUP PO SCH (09:16)
[2021-10-23] MEDS: amLODIPine 5 MG TAB PO SCH ×2 (09:35→20:00)
[2021-10-23] MEDS: prednisoLONE ACETATE 1% OPHTH DROPS 5 ML BTL RIGHT EYE SCH ×4 (09:37→22:49)
[2021-10-23 10:24] LABS: HCT 27.3 % (37.2-46.3); HGB 8.2 g/dL (12.0-15.0); MCH 28.1 pg (27.0-32.0); MCV 93.5 fL (80.0-97.0); Mean Platelet Volume 10.1 fL (9.5-12.2); NRBC Per 100 WBC 0 /100 WBCS (0.0-0.0); Platelet Count 415 X 10*3/uL (140-440); RBC 2.92 X 10*6/uL (4.10-5.20); RDW 13.8 % (11.5-14.5); WBC 15.45 X 10*3/uL (4.50-10.00)
[2021-10-23 11:00] LABS: ALT 11 U/L (8-44); AST 14 U/L (13-35); African American GFR (CKD) 39.8 (60.0-200.0); Albumin 2.3 g/dL (3.8-4.9); Alkaline Phosphatase 75 U/L (41-126); BUN/Creat Ratio 11.75 Ratio (12.00-20.00); Blood Urea Nitrogen 16.1 mg/dL (9.0-27.0); Calcium 8.4 mg/dL (8.7-10.3); Carbon Dioxide 27.2 mmol/L (20.0-27.5); Chloride 104 mmol/L (96-109); Globulin 3.2 g/dL (1.6-3.3); Glucose 100 mg/dL (70-110); Non-African American GFR(CKD) 34.4 (60.0-200.0); Potassium 3.6 mmol/L (3.5-5.5); Sodium 141 mmol/L (135-145); Total Bilirubin <0.15 mg/dL (0.30-1.20); Total Protein 5.5 g/dL (6.2-8.2)
--- NOTE | 2021-10-23 14:52 | P.PN ---
Subjective Progress Note Date: 10/23/21 Principal diagnosis: Shortness of breath/chest congestion. 89-year-old female patient, chronic smoker, with past medical history of COPD, chronic bronchiectasis with mucous plugging, previous episode of pneumonia, hypertension, dyslipidemia, CVA/TIA, who presented to the emergency department on 10/18/2021 planning of shortness of breath, and back pain. Her shortness of breath has been worsening over a period of 2 weeks. Patient had bronchoscopies in the past for removal of mucous plugs, and her BAL cultures from July 2020 were positive for pseudomonas aeruginosa that was resistant to Levaquin and ciprofloxacin. Chest x-ray at admission showed extensive reticular and reticulonodular densities on the background of COPD, interstitial densities in the lower lungs that were slightly increased. Patient had leukocytosis with a white blood cell count of 19.6, hemoglobin of 9.9, sodium is 136, potassium is 4.3, chloride is 105, B1 is 20 creatinine is 1.0, proBNP was 895, LFTs were unremarkable, influenza A and B, RSV and COVID-19 were all negative. Patient denied any fever or chills, she does report coughing and shortness of breath, patient denies any hemoptysis, patient had a d-dimer of 2.48 and VQ scan was ordered showing multiple large matching defects with severe airway disease, and this was an intermediate probability V/Q scan for pulmonary embolism. Patient had been on Unasyn for antibiotic coverage, and breathing treatments. We are asked to see the patient and consultation in regards to shortness of breath, probable pneumonia, and intermediate probability VQ scan On 10/22/2021 patient seen in follow-up on medical surgical floor. Patient is sitting up in the recliner, she has a congested cough, she was able to provide a sputum sample which was sent for culture. However her cough is fairly weak, and is difficult with the patient to clear secretions. Lung sounds reveal diffuse rhonchi, patient is on room air satting 90 percent, she is on Zosyn for antibiotic coverage in view of past history of pseudomonal infections. Awaiting sputum culture results. Vital signs have been stable, she's been afebrile. Denies any hemoptysis or chest discomfort. Today's labs have been reviewed Progress note dated 10/23/2021. The patient is seen today in room 470. She appears to be doing a bit better. She is on 2 L nasal cannula. She's getting saline at 10 mL an hour. The patient is coughing a bit, but not getting up much phlegm. Laboratory data includes a white count of 15.5, hemoglobin 8.2, hematocrit 27.2 platelet count of 415,000. Sodium, potassium, chloride, CO2, anion gap, BUN, and creatinine, are all normal. Pro-calcitonin level is very low at 0.11. Testing for influenza A, influenza B, respiratory syncytial virus, and coronavirus, are all negative. Chest x-ray in my opinion shows diffuse interstitial changes, which could be consistent with pulmonary fibrosis. Doppler studies of the lower extremities, were negative. Objective - Vital Signs Vital signs: Vital Signs Temp 97.4 F L 10/23/21 14:19 Pulse 83 10/23/21 14:19 Resp 20 10/23/21 14:19 BP 137/65 10/23/21 14:19 Pulse Ox 97 10/23/21 14:19 FiO2 Intake & Output 10/22/21 10/23/21 10/23/21 18:59 06:59 18:59 Output Total 450 Balance -450 Weight 43.545 kg Output: Urine 450 Other: Voiding Method Toilet Toilet Diaper Diaper # Voids 4 1 # Bowel Movements 2 - Exam No acute distress, oriented 3. Very frail appearing. Currently on 2 L. HEENT examination is grossly unremarkable. Neck supple. Full range of motion. No adenopathy thyromegaly or neck vein d istention. Cardiovascular examination reveals regular rhythm rate. S1-S2 normal. No S3 or S4. No discernible murmur noted. Heart sounds distant. Heart rate 80 bpm. Lungs reveal scattered bilateral rhonchi and minimal crackles. Breath sounds equal bilaterally. She does not take deep breaths. No wheezes. 2 L saturation is 97%. Abdomen soft bowel sounds are heard. No masses or tenderness. Extremities are intact. No cyanosis clubbing or edema. Skin is without rash or lesion. Neurologic examination is brief but nonfocal. - Labs CBC & Chem 7: 10/23/21 06:33 10/23/21 06:33 Labs: Abnormal Lab Results - Last 24 Hours (Table) 10/23/21 10/23/21 Range/Units 06:33 06:33 WBC 15.45 H (4.50-10.00) X 10*3/uL RBC 2.92 L (4.10-5.20) X 10*6/uL Hgb 8.2 L (12.0-15.0) g/dL Hct 27.3 L (37.2-46.3) % MCHC 30.0 L (32.0-37.0) g/dL Est GFR (CKD-EPI)AfAm 39.8 L (60.0-200.0) Est GFR (CKD-EPI)NonAf 34.4 L (60.0-200.0) BUN/Creatinine Ratio 11.75 L (12.00-20.00) Ratio Calcium 8.4 L (8.7-10.3) mg/dL Total Bilirubin <0.15 L (0.30-1.20) mg/dL Total Protein 5.5 L (6.2-8.2) g/dL Albumin 2.3 L (3.8-4.9) g/dL Albumin/Globulin Ratio 0.70 L (1.60-3.17) g/dL Microbiology - Last 24 Hours (Table) 10/18/21 15:30 Blood Culture - Preliminary Blood No Growth after 96 hours 10/18/21 15:15 Blood Culture - Preliminary Blood No Growth after 96 hours Assessment and Plan Assessment: Acute hypoxemic respiratory failure secondary to possible acute pneumonia. Chest x-rays consistent with diffuse interstitial changes in my opinion, which may relate to her atypical pneumonia, and/or pulmonary fibrosis. History of COPD and chronic bronchiectasis with mucous plugging. Prior history of pseudomonas aeruginosa pulmonary infections. Previous history of tobacco. Hypertension. Hyperlipidemia. History of CVA/TIA. History of chronic anxiety. Chronic back pain. Plan: Plan dated 10/23/2021. Clinically, the patient appears to be stable. She continues on updraft treatments. In addition, she is on Zosyn. So far, blood cultures are negative. The patient has not been able to give us a sputum sample. On a positive note, the pro-calcitonin level was only 0.11, suggesting no infection, or atypical/viral infection. We will continue to follow make recommendations were appropriate. The patient is encouraged to deep breathe, cough, and clear secretions. A flutter valve will be helpful. Also, incentive spirometry would be helpful. Time with Patient: Less than 30
[2021-10-23] MEDS: ENOXAPARIN 40 MG/0.4 ML SYRINGE SQ SCH (19:59)
[2021-10-23] MEDS: ATORVASTATIN 10 MG TAB PO SCH (20:00)
[2021-10-23] MEDS: traZODone HCL 50 MG TAB PO SCH (20:00)
[2021-10-23] MEDS: EZETIMIBE 10 MG TAB PO SCH (20:02)
[2021-10-23] MEDS: NON FORMULARY DRUG (Mirabegron [Myrbetriq] 50 MG Tab.Er.24h) PO SCH (20:05)
[2021-10-24 03:12] VITALS: RESP 18
[2021-10-24] MEDS: PIPERACILLIN-TAZOBACTAM 3.375 GM in SODIUM CHLORIDE 0.9% 100 ML IVPB SCH (04:17)
[2021-10-24 07:10] VITALS: BP 147/68; TEMP 97.9
[2021-10-24] MEDS: amLODIPine 5 MG TAB PO SCH (07:26)
[2021-10-24] MEDS: MULTIVITAMINS, THERA 1 EACH TAB PO SCH (07:26)
[2021-10-24] MEDS: POTASSIUM CHLORIDE ER 20 MEQ TAB.ER PO SCH (07:26)
[2021-10-24] MEDS: ASPIRIN 81 MG PO SCH (07:26)
[2021-10-24] MEDS: CALCIUM CARBONATE 500 MG CHEWABLE PO SCH (07:26)
[2021-10-24] MEDS: CHOLECALCIFEROL 25 MCG (1000 IU) TABLET PO SCH (07:26)
[2021-10-24] MEDS: CYANOCOBALAMIN 500 MCG TAB PO SCH (07:26)
[2021-10-24] MEDS: PANTOPRAZOLE 40 MG TABLET PO SCH (07:27)
[2021-10-24] MEDS: cloNIDine HCL 0.1 MG TAB PO SCH (07:27)
[2021-10-24] MEDS: FUROSEMIDE 20 MG TAB PO SCH (07:27)
[2021-10-24] MEDS: carvediloL 12.5 MG TAB PO SCH (07:27)
[2021-10-24] MEDS: hydrALAZINE HCL 10 MG TAB PO SCH (07:27)
[2021-10-24] MEDS: LORazepam 0.5 MG TAB PO PRN (07:37)
[2021-10-24] MEDS: MEGESTROL 400 MG/10 ML CUP PO SCH (07:37)
[2021-10-24] MEDS: prednisoLONE ACETATE 1% OPHTH DROPS 5 ML BTL RIGHT EYE SCH (07:38)
[2021-10-24] MEDS: IPRATROPIUM-ALBUTEROL 3 ML NEB INHALATION SCH (07:54)
[2021-10-24 08:03] VITALS: PULSE 84
[2021-10-24 10:25] LABS: HCT 34.3 % (37.2-46.3); HGB 10.2 g/dL (12.0-15.0); MCH 28.2 pg (27.0-32.0); MCHC 29.7 g/dL (32.0-37.0); MCV 94.8 fL (80.0-97.0); NRBC Per 100 WBC 0 /100 WBCS (0.0-0.0); Platelet Count 499 X 10*3/uL (140-440); RBC 3.62 X 10*6/uL (4.10-5.20); RDW 14.1 % (11.5-14.5); WBC 17.48 X 10*3/uL (4.50-10.00)
[2021-10-24 11:45] LABS: African American GFR (CKD) 35.7 (60.0-200.0); Albumin 2.8 g/dL (3.8-4.9); Albumin/Globulin Ratio 0.7 (1.60-3.17); Anion Gap 14.1 mmol/L (10.00-18.00); BUN/Creat Ratio 9.8 Ratio (12.00-20.00); Blood Urea Nitrogen 14.7 mg/dL (9.0-27.0); Calcium 9.1 mg/dL (8.7-10.3); Carbon Dioxide 26.9 mmol/L (20.0-27.5); Non-African American GFR(CKD) 30.8 (60.0-200.0); Potassium 4.3 mmol/L (3.5-5.5); Total Bilirubin 0.2 mg/dL (0.30-1.20); Total Protein 6.8 g/dL (6.2-8.2)
--- NOTE | 2021-10-24 13:49 | PN ---
PROGRESS NOTE PULMONARY/CRITICAL CARE PROGRESS NOTE: The patient is again seen today in room 470. She is on 2 L nasal cannula. The patient is getting saline at 20 mL an hour. Her procalcitonin level was 0.11. The patient's antibiotics in my opinion could be discontinued. She is not manifesting any signs or symptoms of respiratory distress. In fact, she looks rather stable. LABORATORY DATA: Today includes a white count of 17.48, hemoglobin 10.2, hematocrit 34.3, and a platelet count of 499,000. Sodium 143, potassium 4.3, chloride 102, CO2 of 27, BUN 15, and creatinine 1.5. As mentioned, procalcitonin level is 0.11. Microbiologic studies are negative. The venous Doppler from October 21 and pulmonary perfusion study from October 20, are reviewed. Medications, labs, are reviewed. PHYSICAL EXAMINATION: VITAL SIGNS: Current vital signs include a temperature which is normal. Heart rate , respiratory rate 18, blood pressure 127/62, and saturations are 95% to 96%. GENERAL: Appears in no acute distress. HEENT: Grossly unremarkable. NECK: Supple. Full range of motion. No adenopathy. Neck veins are flat. CARDIOVASCULAR: Examination reveals regular rhythm and rate. S1, S2 normal. No S3, S4, or murmur. The patient is not tachycardic. LUNGS: Reveal some minimal bilateral rhonchi and crackles. Breath sounds are generally improved. She does not really take deep breaths. Saturations are excellent. ABDOMEN: Soft with bowel sounds. No masses or tenderness. EXTREMITIES: Intact. No cyanosis, clubbing, or edema. SKIN: Without rash. NEUROLOGIC: Examination is brief, but nonfocal. Labs, x-rays, and medications as mentioned above are all reviewed. ASSESSMENT: 1. Acute hypoxemic respiratory failure secondary to possible acute pneumonia. Her chest x-ray shows diffuse interstitial changes, which may relate to atypical pneumonia and/or interstitial lung disease. 2. History of chronic obstructive pulmonary disease and chronic bronchiectasis, with mucus plugging. 3. Prior history of Pseudomonas aeruginosa pulmonary infection. 4. Previous history of tobacco use. 5. Hypertension. 6. Hyperlipidemia. 7. History of cerebrovascular accident/transient ischemic attack. 8. History of chronic anxiety. 9. Chronic back pain. PLAN: Clinically, the patient is very stable. She remains on 2 L. Her respiratory status appears to be improved. The patient possibly could be discharged. No additional recommendations are made other than discontinuing antibiotics as her procalcitonin level was only 0.11. MMODL / IJN: [id number] /
--- NOTE | 2021-10-26 07:23 | CDI ---
Documentation Clarification Form Date: 10/26/21 From: Promise Kowalski Admit Date: 10/18/2021 02:28:00 PM Patient Name: Oumou Mazariegos Visit Number: [id number] Discharge Date: 10/24/2021 11:36:00 AM ATTENTION: The Clinical Documentation Specialists (CDI) and [facility] Coding Staff appreciate your assistance in clarifying documentation. Please respond to the clarification below the line at the bottom and electronically sign. The CDI & [facility] Coding staff will review the response and follow-up if needed. Please note: Queries are made part of the Legal Health Record. If you have any questions, please contact the author of this message via ITS. Dr. Uri Chaudhary, Conflicting documentation has been found in the medical record. As attending physician, please provide clarification. Per Dr Saldana's consult " Acute hypoxic respiratory failure related to acute pneumonia, possibly related to pseudomonas aeruginosa." Per Dr Hoffman's 10/24 PN "Acute hypoxemic respiratory failure secondary to possible acute pneumonia. Her chest x-ray shows diffuse interstitial changes, which may relate to atypical pneumonia and/or interstitial lung disease." History/Risk Factors: History of chronic obstructive pulmonary disease and chronic bronchiectasis, with mucus plugging. Hx of severe malnutrition, smoking, HTN, HLD, chronic anxiety, CVA/TIA Clinical Indicators: Cough and congestion. Dyspnea on exertion. T 98.5, P 83, R 18, BP 186/78, O2 94 Treatment: IV Unasyn, IV Zosyn, nebulizer, Please clarify which diagnosis is most appropriate: [ ] Pseudomonas pneumonia w bronchiectasis [ ] Pneumonia, atypical w bronchiectasis [ ] Pseudomonas pneumonia w COPD [ x ] Pneumonia, atypical w COPD [ ] Other (please specify) [ ] Unable to determine MTDD
== END 2021-10-24 11:36 | disposition home or self-care (01) | DRG 193 ==
LOC: EC 11:03 → 4SSUR 14:28
PROVIDERS: ADMIT Family Medicine; ATTEND Family Medicine
DX: J18.9 Pneumonia, unspecified organism (principal); E43 Unspecified severe protein-calorie malnutrition; J96.01 Acute respiratory failure with hypoxia; Z68.1 Body mass index [BMI] 19.9 or less, adult; J44.0 Chronic obstructive pulmonary disease with (acute) lower respiratory infection; Z16.23 Resistance to quinolones and fluoroquinolones; Z20.822 Contact with and (suspected) exposure to COVID-19; K21.9 Gastro-esophageal reflux disease without esophagitis; E78.5 Hyperlipidemia, unspecified; I10 Essential (primary) hypertension; G89.29 Other chronic pain; M54.9 Dorsalgia, unspecified; R32 Unspecified urinary incontinence; K57.90 Diverticulosis of intestine, part unspecified, without perforation or abscess without bleeding; F41.9 Anxiety disorder, unspecified; I25.2 Old myocardial infarction; M15.9 Polyosteoarthritis, unspecified; M47.9 Spondylosis, unspecified; Z79.82 Long term (current) use of aspirin; Z79.818 Long term (current) use of other agents affecting estrogen receptors and estrogen levels; Z79.899 Other long term (current) drug therapy; Z86.73 Personal history of transient ischemic attack (TIA), and cerebral infarction without residual deficits; Z87.01 Personal history of pneumonia (recurrent); Z87.440 Personal history of urinary (tract) infections; Z90.49 Acquired absence of other specified parts of digestive tract; Z87.19 Personal history of other diseases of the digestive system; Z90.710 Acquired absence of both cervix and uterus; Z98.1 Arthrodesis status; Z87.891 Personal history of nicotine dependence; Z71.3 Dietary counseling and surveillance; Z88.5 Allergy status to narcotic agent; Z82.49 Family history of ischemic heart disease and other diseases of the circulatory system
CPT/HCPCS: 36415; 71046; 78582; 80048; 80053; 83605; 83880; 84145; 85025; 85027; 85379; 87040; 87636; 93005; 93970; 94640; 94667; 94760; 96365; 96375; 99285

== ENCOUNTER 2022-02-28 23:24 | Observation (INO) | payer BC, MEDICARE ==
[2022-02-28] MEDS ORDERED: ACETAMINOPHEN TAB 500 MG TAB PO STA (23:38)
[2022-03-01 00:01] VITALS: RESP 18
[2022-03-01 00:29] LABS: Basophils # (A) 0.1 k/uL (0-0.2); Basophils % (A) 1 %; Eosinophils # (A) 0.5 k/uL (0-0.7); Eosinophils % (A) 5 %; HCT 28.7 % (34.0-46.0); HGB 9.4 gm/dL (11.4-16.0); Lymphocytes # (A) 2.2 k/uL (1.0-4.8); Lymphocytes % (A) 20 %; MCH 29.1 pg (25.0-35.0); MCHC 32.8 g/dL (31.0-37.0); MCV 88.7 fL (80.0-100.0); Mean Platelet Volume 7.7; Monocytes # (A) 0.7 k/uL (0-1.0); Monocytes % (A) 6 %; Neutrophils # (A) 7.3 k/uL (1.3-7.7); Neutrophils % (A) 67 %; Platelet Count 337 k/uL (150-450); RBC 3.24 m/uL (3.80-5.40); RDW 14.3 % (11.5-15.5); WBC 10.9 k/uL (3.8-10.6)
[2022-03-01 00:56] LABS: Prothrombin Time 10.2 sec (9.0-12.0)
[2022-03-01 01:05] LABS: Calcium 8.3 mg/dL (8.4-10.2); Magnesium 1.8 mg/dL (1.6-2.3); Potassium 4.2 mmol/L (3.5-5.1); Total Bilirubin 0.2 mg/dL (0.2-1.3); Total Protein 6.4 g/dL (6.3-8.2)
--- NOTE | 2022-03-01 01:15 | ED ---
General Adult HPI - General Chief complaint: Chest Pain Stated complaint: Chest Pain Source: patient Mode of arrival: EMS - History of Present Illness Initial comments: 89 year old female with past history of takosubos cardiomyopathy, CVA, hypertension who presents to the emergency room with reported chest pain. States the pain started earlier in the evening. It is left-sided, sharp in nature and reproducible with palpation. She told her daughter she was having chest pain. They gave her an aspirin and a nitro for which she states the pain did not change. She has no associated shortness of breath. No fevers, chills or cough. No trauma. No lower extremity swelling. No history of DVT or PE. Patient cannot provide much history as she is a poor historian. No other alleviating, precipitating or modifying factors - Related Data Home Medications Medication Instructions Recorded Confirmed Carvedilol 25 mg PO BID 12/18/13 10/18/21 Multivitamin/Iron/Folic Acid 1 tab PO DAILY 11/17/15 10/18/21 [Centrum Complete Multivit Tab] Aspirin EC [Ecotrin Low Dose] 81 mg PO DAILY 09/16/18 10/18/21 Ezetimibe [Zetia] 10 mg PO HS 12/26/18 10/18/21 Simvastatin [Zocor] 20 mg PO HS 12/26/18 10/18/21 cloNIDine HCL [Catapres] 0.3 mg PO BID 12/26/18 10/18/21 Calcium Carbonate [Calcium] 600 mg PO DAILY 08/07/20 10/18/21 Cyanocobalamin (Vitamin B-12) 1,000 mcg PO DAILY 08/07/20 10/18/21 [Vitamin B-12] Mirabegron [Myrbetriq] 50 mg PO HS 08/07/20 10/18/21 Cholecalciferol [Vitamin D3 (25 25 mcg PO DAILY 10/22/20 10/18/21 Mcg = 1000 Iu)] Prednisolone Acetate/Pf 1 drop RIGHT EYE QID 07/07/21 10/18/21 [Prednisolone Acet 1% Eye Drop] Megestrol Acetate 400 mg PO DAILY 08/21/21 10/18/21 traZODone HCL [Desyrel] 50 mg PO HS 08/21/21 10/18/21 Furosemide [Lasix] 20 mg PO BID 10/18/21 10/18/21 Previous Rx's Medication Instructions Recorded Potassium Chloride ER [K-Dur 20] 20 meq PO DAILY 30 Days #30 tab 08/16/21 LORazepam [Ativan] 0.5 mg PO TID PRN #90 tab 08/23/21 amLODIPine [Norvasc] 5 mg PO BID 90 Days #180 tab 08/23/21 Amoxic-Pot Clav 500-125 mg 1 tab PO Q12HR #14 tab 10/24/21 [Augmentin 500-125 mg] Ipratropium-Albuterol Nebulize 3 ml INHALATION RT-QID #120 each 10/24/21 [Duoneb 0.5 mg-3 mg/3 ml Soln] hydrALAZINE HCL [Apresoline] 10 mg PO BID #60 tab 10/24/21 Allergies Allergy/AdvReac Type Severity Reaction Status Date / Time oxycodone [From Percocet] Allergy Unknown Verified 02/28/22 23:40 codeine AdvReac Nausea & Verified 02/28/22 23:40 Vomiting meperidine HCl [From Demerol] AdvReac Nausea & Verified 02/28/22 23:40 Vomiting morphine AdvReac Nausea & Verified 02/28/22 23:40 Vomiting Review of Systems ROS Statement: Those systems with pertinent positive or pertinent negative responses have been documented in the HPI. ROS Other: All systems not noted in ROS Statement are negative. Past Medical History Past Medical History: Chest Pain / Angina, CVA/TIA, GERD/Reflux, Hyperlipidemia, Hypertension, Myocardial Infarction ([place]), Pneumonia, Syncope Additional Past Medical History / Comment(s): Past syncopal episodes, TIAs, UTIs, DJD spin, chronic back pain, arthritis hips and back, diverticular disease.urinary incontinence- wears briefs Last Myocardial Infarction Date:: 11/16/2010 History of Any Multi-Drug Resistant Organisms: None Reported Past Surgical History: Adenoidectomy, Appendectomy, Back Surgery, Cholecystectomy, Heart Catheterization, Hysterectomy, Tonsillectomy Additional Past Surgical History / Comment(s): cardiac caths in 2010 and 2013, back fusion/discectomy, colonoscopy, bilateral cataract removal with lens implants, Past Anesthesia/Blood Transfusion Reactions: Postoperative Nausea & Vomiting (PONV) Past Psychological History: Anxiety Smoking Status: Former smoker Past Alcohol Use History: None Reported Past Drug Use History: None Reported - Past Family History Father Additional Family Medical History / Comment(s): Father at the age of 57yrs with "heart problems". Mother Additional Family Medical History / Comment(s): Mother had an enlarged heart. She at the age of 79yrs. Course Vital Signs 02/28/22 02/28/22 03/01/22 23:32 23:58 00:40 Temperature 7.8 F L Pulse Rate 66 71 Respiratory 20 18 18 Rate Blood Pressure 200/89 175/82 O2 Sat by Pulse 97 97 Oximetry 03/01/22 03/01/22 01:40 03:00 Temperature Pulse Rate 73 87 Respiratory 18 18 Rate Blood Pressure 176/71 172/93 O2 Sat by Pulse 97 97 Oximetry - Reevaluation(s) Reevaluation #1: Patient care delayed as survey technician refuses to CT patient without receiving IV fluids 03/01/22 02:41 EKG Findings - EKG Comments: EKG Findings:: EKG demonstrates sinus rhythm with a rate of 62. SD interval 185. QRS 86. QTC of 402. No acute ST segment elevations or depressions. EKG is repeated by myself Medical Decision Making - Medical Decision Making Upon arrival patient was placed into room 6. A thorough history and physical exam was performed. Patient placed on continuous pulse ox and cardiac monito ring. 12-lead EKG was performed. Patient reports that her pain is improved at this time. I did give her 1 g of Tylenol. Laboratory studies were conducted and reviewed. D-dimer elevated at 2.76. Troponin negative. She does go for a chest x-ray which demonstrates interstitial fibrosis. CTA of the chest is performed which demonstrates no evidence of pulmonary embolism. Extensive course reticular-nodular pulmonary infiltrates. Discussed results the patient. Recommended admission for echo cardio consultation. Spoke with Dr. Chaudhary who agreed to admit the patient. Patient currently awaiting a bed on the floor in stable condition - Lab Data Result diagrams: 02/28/22 23:53 02/28/22 23:53 Lab Results 02/28/22 02/28/22 02/28/22 Range/Units 23:53 23:53 23:53 WBC 10.9 H (3.8-10.6) k/uL RBC 3.24 L (3.80-5.40) m/uL Hgb 9.4 L (11.4-16.0) gm/dL Hct 28.7 L (34.0-46.0) % MCV 88.7 (80.0-100.0) fL MCH 29.1 (25.0-35.0) pg MCHC 32.8 (31.0-37.0) g/dL RDW 14.3 (11.5-15.5) % Plt Count 337 (150-450) k/uL MPV 7.7 Neutrophils % 67 % Lymphocytes % 20 % Monocytes % 6 % Eosinophils % 5 % Basophils % 1 % Neutrophils # 7.3 (1.3-7.7) k/uL Lymphocytes # 2.2 (1.0-4.8) k/uL Monocytes # 0.7 (0-1.0) k/uL Eosinophils # 0.5 (0-0.7) k/uL Basophils # 0.1 (0-0.2) k/uL PT 10.2 (9.0-12.0) sec INR 1.0 (<1.2) APTT 21.3 L (22.0-30.0) sec D-Dimer 2.76 H (<0.60) mg/L FEU Sodium 135 L (137-145) mmol/L Potassium 4.2 (3.5-5.1) mmol/L Chloride 103 (98-107) mmol/L Carbon Dioxide 26 (22-30) mmol/L Anion Gap 6 mmol/L BUN 17 (7-17) mg/dL Creatinine 1.18 H (0.52-1.04) mg/dL Est GFR (CKD-EPI)AfAm 47 (>60 ml/min/1.73 sqM) Est GFR (CKD-EPI)NonAf 41 (>60 ml/min/1.73 sqM) Glucose 95 (74-99) mg/dL Calcium 8.3 L (8.4-10.2) mg/dL Magnesium 1.8 (1.6-2.3) mg/dL Total Bilirubin 0.2 (0.2-1.3) mg/dL AST 23 (14-36) U/L ALT 16 (4-34) U/L Alkaline Phosphatase 111 (38-126) U/L Troponin I (0.000-0.034) ng/mL NT-Pro-B Natriuret Pep pg/mL Total Protein 6.4 (6.3-8.2) g/dL Albumin 3.0 L (3.5-5.0) g/dL Lipase 106 (23-300) U/L 02/28/22 02/28/22 Range/Units 23:53 23:53 WBC (3.8-10.6) k/uL RBC (3.80-5.40) m/uL Hgb (11.4-16.0) gm/dL Hct (34.0-46.0) % MCV (80.0-100.0) fL MCH (25.0-35.0) pg MCHC (31.0-37.0) g/dL RDW (11.5-15.5) % Plt Count (150-450) k/uL MPV Neutrophils % % Lymphocytes % % Monocytes % % Eosinophils % % Basophils % % Neutrophils # (1.3-7.7) k/uL Lymphocytes # (1.0-4.8) k/uL Monocytes # (0-1.0) k/uL Eosinophils # (0-0.7) k/uL Basophils # (0-0.2) k/uL PT (9.0-12.0) sec INR (<1.2) APTT (22.0-30.0) sec D-Dimer (<0.60) mg/L FEU Sodium (137-145) mmol/L Potassium (3.5-5.1) mmol/L Chloride (98-107) mmol/L Carbon Dioxide (22-30) mmol/L Anion Gap mmol/L BUN (7-17) mg/dL Creatinine (0.52-1.04) mg/dL Est GFR (CKD-EPI)AfAm (>60 ml/min/1.73 sqM) Est GFR (CKD-EPI)NonAf (>60 ml/min/1.73 sqM) Glucose (74-99) mg/dL Calcium (8.4-10.2) mg/dL Magnesium (1.6-2.3) mg/dL Total Bilirubin (0.2-1.3) mg/dL AST (14-36) U/L ALT (4-34) U/L Alkaline Phosphatase (38-126) U/L Troponin I <0.012 (0.000-0.034) ng/mL NT-Pro-B Natriuret Pep 441 pg/mL Total Protein (6.3-8.2) g/dL Albumin (3.5-5.0) g/dL Lipase (23-300) U/L Disposition Clinical Impression: Chest pain Disposition: ADMITTED IP TO THIS HOSP Condition: Stable Is patient prescribed a controlled substance at d/c from ED?: No Time of Disposition: 04:02 Decision to Admit Reason: Admit from EC Decision Date: 03/01/22 Decision Time: 04:02
--- NOTE | 2022-03-01 01:21 | XR ---
EXAMINATION TYPE: XR chest 2V DATE OF EXAM: 03/01/2022 COMPARISON: 10/18/2021 HISTORY: Chest pain TECHNIQUE: FINDINGS: There is diffuse coarse interstitial density in the lungs. Heart size is normal. Thoracic a claritza is atheromatous. There are chest leads. Costophrenic angles are clear. Bony thorax is intact. Th ere is some osteopenia. IMPRESSION: Over interstitial fibrosis. No obvious heart failure. No change.
[2022-03-01 01:44] LABS: Partial Thromboplastin Time 21.3 sec (22.0-30.0)
[2022-03-01] MEDS ORDERED: LORazepam 1 MG TAB PO STA (01:54)
[2022-03-01] MEDS ORDERED: SODIUM CHLORIDE 0.9% 500 ML 500 ML IV ONE ×2 (02:26→03:28)
--- NOTE | 2022-03-01 03:54 | CT ---
EXAMINATION TYPE: CT chest angio for PE DATE OF EXAM: 03/01/2022 COMPARISON: 08/12/2020 HISTORY: elevated d dimer CT DLP: 308.3 mGycm Automated exposure control for dose reduction was used. CONTRAST: Performed with IV Contrast, patient injected with 80 mL of Isovue 370. There are Three-D postprocessed images. There is coarse reticular nodular infiltrate throughout the lung bang. Heart is top normal in size. There are no hilar masses. There are some mediastinal endobronchial lymph nodes measuring up to 2 cm . Thoracic aorta is intact. No aneurysm. There is no evidence of filling defect in the pulmonary walter patti. The thoracic spine is intact. No compression fracture. Sternum is intact. IMPRESSION: No evidence of pulmonary embolism. Extensive coarse reticular nodular pulmonary infiltrates likely re lated to pulmonary fibrosis and not significantly different than old exam. No suspicious pulmonary ma ss. Mild mediastinal bronchial adenopathy is consistent with inflammatory disease and also present on old exam.
[2022-03-01] MEDS ORDERED: NALOXONE 0.4 MG/ML 1 ML VIAL IV PRN (04:02)
[2022-03-01] MEDS ORDERED: LORazepam 0.5 MG TAB PO PRN (08:09)
--- NOTE | 2022-03-01 08:14 | P.HPIM ---
History of Present Illness H&P Date: 03/01/22 Chief Complaint: chest pain This is a 89-year-old female with history of transient does complain of significant shortness of breath with substernal chest pressure. No radiation no nausea and no diaphoresis but workup in the emergency room did show elevated d- dimer. Computed tomography scan does not show any type of PE. She is resting comfortably at this time. She has had intermittent hypertensive urgencies. Question element of compliance. No significant monitor changes. Review of Systems Constitutional: Denies chills, Denies fever Eyes: denies blurred vision, denies pain Ears, nose, mouth and throat: Denies headache, Denies sore throat Cardiovascular: Reports chest pain, Reports shortness of breath, Denies leg edema, Denies lightheadedness Respiratory: Denies cough Gastrointestinal: Denies abdominal pain, Denies diarrhea, Denies nausea, Denies vomiting Genitourinary: Denies dysuria, Denies hematuria Musculoskeletal: Denies myalgias Past Medical History Past Medical History: Chest Pain / Angina, CVA/TIA, GERD/Reflux, Hyperlipidemia, Hypertension, Myocardial Infarction ([place]), Pneumonia, Syncope Additional Past Medical History / Comment(s): Past syncopal episodes, TIAs, UTIs , DJD spin, chronic back pain, arthritis hips and back, diverticular disease.urinary incontinence- wears briefs Last Myocardial Infarction Date:: 11/16/2010 History of Any Multi-Drug Resistant Organisms: None Reported Past Surgical History: Adenoidectomy, Appendectomy, Back Surgery, Cholecystectomy, Heart Catheterization, Hysterectomy, Tonsillectomy Additional Past Surgical History / Comment(s): cardiac caths in 2010 and 2013, back fusion/discectomy, colonoscopy, bilateral cataract removal with lens implants, Past Anesthesia/Blood Transfusion Reactions: Postoperative Nausea & Vomiting (PONV) Past Psychological History: Anxiety Smoking Status: Former smoker Past Alcohol Use History: None Reported Past Drug Use History: None Reported - Past Family History Father Additional Family Medical History / Comment(s): Father at the age of 57yrs with "heart problems". Mother Additional Family Medical History / Comment(s): Mother had an enlarged heart. She at the age of 79yrs. Medications and Allergies Home Medications Medication Instructions Recorded Confirmed Type Carvedilol 25 mg PO BID 12/18/13 10/18/21 History Multivitamin/Iron/Folic Acid 1 tab PO DAILY 11/17/15 10/18/21 History [Centrum Complete Multivit Tab] Aspirin EC [Ecotrin Low Dose] 81 mg PO DAILY 09/16/18 10/18/21 History Ezetimibe [Zetia] 10 mg PO HS 12/26/18 10/18/21 History Simvastatin [Zocor] 20 mg PO HS 12/26/18 10/18/21 History cloNIDine HCL [Catapres] 0.3 mg PO BID 12/26/18 10/18/21 History Calcium Carbonate [Calcium] 600 mg PO DAILY 08/07/20 10/18/21 History Cyanocobalamin (Vitamin B-12) 1,000 mcg PO DAILY 08/07/20 10/18/21 History [Vitamin B-12] Mirabegron [Myrbetriq] 50 mg PO HS 08/07/20 10/18/21 History Cholecalciferol [Vitamin D3 (25 25 mcg PO DAILY 10/22/20 10/18/21 History Mcg = 1000 Iu)] Prednisolone Acetate/Pf 1 drop RIGHT EYE QID 07/07/21 10/18/21 History [Prednisolone Acet 1% Eye Drop] Potassium Chloride ER [K-Dur 20] 20 meq PO DAILY 30 Days #30 tab 08/16/21 10/18/21 Rx Megestrol Acetate 400 mg PO DAILY 08/21/21 10/18/21 History traZODone HCL [Desyrel] 50 mg PO HS 08/21/21 10/18/21 History LORazepam [Ativan] 0.5 mg PO TID PRN #90 tab 08/23/21 10/18/21 Rx amLODIPine [Norvasc] 5 mg PO BID 90 Days #180 tab 08/23/21 10/18/21 Rx Furosemide [Lasix] 20 mg PO BID 10/18/21 10/18/21 History Amoxic-Pot Clav 500-125 mg 1 tab PO Q12HR #14 tab 10/24/21 Rx [Augmentin 500-125 mg] Ipratropium-Albuterol Nebulize 3 ml INHALATION RT-QID #120 each 10/24/21 Rx [Duoneb 0.5 mg-3 mg/3 ml Soln] hydrALAZINE HCL [Apresoline] 10 mg PO BID #60 tab 10/24/21 Rx Allergies Allergy/AdvReac Type Severity Reaction Status Date / Time oxycodone [From Percocet] Allergy Unknown Verified 02/28/22 23:40 codeine AdvReac Nausea & Verified 02/28/22 23:40 Vomiting meperidine HCl [From Demerol] AdvReac Nausea & Verified 02/28/22 23:40 Vomiting morphine AdvReac Nausea & Verified 02/28/22 23:40 Vomiting Physical Exam Vitals: Vital Signs Temp Pulse Resp BP Pulse Ox 03/01/22 03:00 87 18 172/93 97 03/01/22 01:40 73 18 176/71 97 03/01/22 00:40 71 18 175/82 97 02/28/22 23:58 18 02/28/22 23:32 7.8 F L 66 20 200/89 97 Intake and Output 02/28/22 03/01/22 03/01/22 22:59 06:59 14:59 Other: Weight 49.895 kg - Constitutional General appearance: thin - EENT Eyes: no abnormal pupil - Neck Neck: no lymphadenopathy - Cardiovascular Rhythm: regular Heart sounds: normal: S1, S2 Abnormal Heart Sounds: no S3 Gallop - Gastrointestinal General gastrointestinal: soft, no tenderness - Musculoskeletal Musculoskeletal: generalized weakness - Psychiatric Psychiatric: A&O x's 3, appropriate affect Results CBC & Chem 7: 02/28/22 23:53 02/28/22 23:53 Labs: Abnormal Lab Results - Last 24 Hours (Table) 02/28/22 02/28/22 02/28/22 Range/Units 23:53 23:53 23:53 WBC 10.9 H (3.8-10.6) k/uL RBC 3.24 L (3.80-5.40) m/uL Hgb 9.4 L (11.4-16.0) gm/dL Hct 28.7 L (34.0-46.0) % APTT 21.3 L (22.0-30.0) sec D-Dimer 2.76 H (<0.60) mg/L FEU Sodium 135 L (137-145) mmol/L Creatinine 1.18 H (0.52-1.04) mg/dL Calcium 8.3 L (8.4-10.2) mg/dL Albumin 3.0 L (3.5-5.0) g/dL Assessment and Plan (1) Chest pain Current Visit: Yes Status: Acute Code(s): R07.9 - CHEST PAIN, UNSPECIFIED SNOMED Code(s): 08141406 (2) At risk for readmission to hospital Current Visit: No Status: Acute Code(s): Z91.89 - OTH PERSONAL RISK FACTORS, NOT ELSEWHERE CLASSIFIED SNOMED Code(s): 6582644786520 (3) Dyspnea on exertion Current Visit: No Status: Acute Code(s): R06.09 - OTHER FORMS OF DYSPNEA SNOMED Code(s): 65437708 (4) HTN (hypertension) Current Visit: No Status: Acute Code(s): I10 - ESSENTIAL (PRIMARY) HYPERTENSION SNOMED Code(s): 07027188 (5) Mild malnutrition Current Visit: No Status: Acute Code(s): E44.1 - MILD PROTEIN-CALORIE MALNUTRITION SNOMED Code(s): 00711307 Plan: So far no enzymatic elevation of troponin. Reconcile medications. Rule out myocardial infraction. Appreciate consultants input. Watch vital signs closely. Dr. Yusuf's group will be covering for the weekend. Time with Patient: Greater than 30
[2022-03-01] MEDS ORDERED: prednisoLONE ACETATE 1% OPHTH DROPS 5 ML BTL RIGHT EYE SCH (09:00)
[2022-03-01] MEDS ORDERED: CALCIUM CARBONATE 500 MG CHEWABLE PO SCH (09:00)
[2022-03-01] MEDS ORDERED: carvediloL 12.5 MG TAB PO SCH (09:00)
[2022-03-01] MEDS ORDERED: amLODIPine 5 MG TAB PO SCH (09:00)
[2022-03-01] MEDS ORDERED: MULTIVITAMINS, THERA 1 EACH TAB PO SCH (09:00)
[2022-03-01] MEDS ORDERED: cloNIDine HCL 0.1 MG TAB PO SCH (09:00)
[2022-03-01] MEDS ORDERED: POTASSIUM CHLORIDE ER 20 MEQ TAB.ER PO SCH (09:00)
[2022-03-01] MEDS ORDERED: CHOLECALCIFEROL 25 MCG (1000 IU) TABLET PO SCH (09:00)
[2022-03-01] MEDS ORDERED: ASPIRIN 81 MG PO SCH (09:00)
[2022-03-01] MEDS ORDERED: CYANOCOBALAMIN 500 MCG TAB PO SCH (09:00)
[2022-03-01] MEDS ORDERED: MEGESTROL 400 MG/10 ML CUP PO SCH (09:00)
[2022-03-01] MEDS ORDERED: FUROSEMIDE 20 MG TAB PO SCH (09:00)
--- NOTE | 2022-03-01 10:39 | P.CRDCN ---
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 She presented to the emergency department with complaint of left-sided chest pain that was steady initially. She states she now has pain only with deep breathing. She denies any fall or injury to her chest. DIAGNOSTICS -EKG reveals sinus rhythm HR 62, T wave inversion in lead aVR and aVL. -CTA of the chest revealed no evidence of pulmonary embolism. Extensive coarse reticular nodular pulmonary infiltrates likely related to pulmonary fibrosis no change. Mild mediastinal bronchial adenopathy. -She underwent stress testing with Lexiscan MPI in December 2019 which showed no evidence of ischemia. -Laboratory reviewed, troponin negative 3, proBNP 441, creatinine 1.18. D-d andres 2.76, hemoglobin 9.4, WBC 10.9 -Most recent echocardiogram 08/2021 revealed an EF of 55-60%, mild to moderate mitral regurgitation, mild aortic stenosis with mean gradient of 11, mild aortic regurgitation. REVIEW OF SYSTEMS At the time of my exam: CONSTITUTIONAL: Denies fever or chills. CARDIOVASCULAR: Denies chest pain, shortness of breath, orthopnea, PND or palpitations. RESPIRATORY: Denies cough. GASTROINTESTINAL: Denies abdominal pain, diarrhea, constipation, nausea or vomiting. MUSCULOSKELETAL: Denies myalgias. NEUROLOGIC: Denies numbness, tingling, headacbe or weakness. ENDOCRINE: Denies fatigue, weight change, polydipsia or polyurina. GENITOURINARY: Denies burning, hematuria or urgency with micturation. HEMATOLOGIC: Denies history of anemia or bleeding. PHYSICAL EXAMINATION Vital signs reviewed CONSTITUTIONAL: No apparent distress. HEENT: Head is normocephalic. Pupils are equal, round. Sclerae anicteric. Mucous membranes of the mouth are moist. No JVD. No carotid bruit. CHEST EXAMINATION: Lungs are clear to auscultation. No chest wall tenderness is noted on palpation or with deep breathing. HEART EXAMINATION: Regular rate and rhythm. S1, S2 heard. No murmurs, gallops or rub. Positive chest wall tenderness in the left midclavicular line. ABDOMEN: Soft, nontender. Positive bowel sounds. EXTREMITIES: 2+ peripheral pulses, no lower extremity edema and no calf tenderness. NEUROLOGIC EXAMINATION: Patient is awake, alert and oriented x3. ASSESSMENT Left-sided chest pain reproducible, acute coronary syndrome ruled out Hypertension Hyperlipidemia Histoy of Takotsubo cardiomyopathy in 2010 with recovery of EF Mild non-obstructive Coronary artery disease PLAN Limited 2D echo ordered Continue home cardiac medications If echocardiogram is unchanged from previous, patient is cleared for discharge home from cardiology with follow-up in the office in 2 weeks. Nurse practitioner note has been reviewed by physician. Signing provider agrees with the documented findings, assessment, and plan of care. Past Medical History Past Medical History: Chest Pain / Angina, CVA/TIA, GERD/Reflux, Hyperlipidemia, Hypertension, Myocardial Infarction ([place]), Pneumonia, Syncope Additional Past Medical History / Comment(s): Past syncopal episodes, TIAs, UTIs, DJD spin, chronic back pain, arthritis hips and back, diverticular disease.urinary incontinence- wears briefs Last Myocardial Infarction Date:: 11/16/2010 History of Any Multi-Drug Resistant Organisms: None Reported Past Surgical History: Adenoidectomy, Appendectomy, Back Surgery, Cholecystectomy, Heart Catheterization, Hysterectomy, Tonsillectomy Additional Past Surgical History / Comment(s): cardiac caths in 2010 and 2013, back fusion/discectomy, colonoscopy, bilateral cataract removal with lens implants, Past Anesthesia/Blood Transfusion Reactions: Postoperative Nausea & Vomiting (PONV) Past Psychological History: Anxiety Smoking Status: Former smoker Past Alcohol Use History: None Reported Past Drug Use History: None Reported - Past Family History Father Additional Family Medical History / Comment(s): Father at the age of 57yrs with "heart problems". Mother Additional Family Medical History / Comment(s): Mother had an enlarged heart. She at the age of 79yrs. Medications and Allergies Home Medications Medication Instructions Recorded Confirmed Type Carvedilol 25 mg PO BID 12/18/13 10/18/21 History Multivitamin/Iron/Folic Acid 1 tab PO DAILY 11/17/15 10/18/21 History [Centrum Complete Multivit Tab] Aspirin EC [Ecotrin Low Dose] 81 mg PO DAILY 09/16/18 10/18/21 History Ezetimibe [Zetia] 10 mg PO HS 12/26/18 10/18/21 History Simvastatin [Zocor] 20 mg PO HS 12/26/18 10/18/21 History cloNIDine HCL [Catapres] 0.3 mg PO BID 12/26/18 10/18/21 History Calcium Carbonate [Calcium] 600 mg PO DAILY 08/07/20 10/18/21 History Cyanocobalamin (Vitamin B-12) 1,000 mcg PO DAILY 08/07/20 10/18/21 History [Vitamin B-12] Mirabegron [Myrbetriq] 50 mg PO HS 08/07/20 10/18/21 History Cholecalciferol [Vitamin D3 (25 25 mcg PO DAILY 10/22/20 10/18/21 History Mcg = 1000 Iu)] Prednisolone Acetate/Pf 1 drop RIGHT EYE QID 07/07/21 10/18/21 History [Prednisolone Acet 1% Eye Drop] Potassium Chloride ER [K-Dur 20] 20 meq PO DAILY 30 Days #30 tab 08/16/21 10/18/21 Rx Megestrol Acetate 400 mg PO DAILY 08/21/21 10/18/21 History traZODone HCL [Desyrel] 50 mg PO HS 08/21/21 10/18/21 History LORazepam [Ativan] 0.5 mg PO TID PRN #90 tab 08/23/21 10/18/21 Rx amLODIPine [Norvasc] 5 mg PO BID 90 Days #180 tab 08/23/21 10/18/21 Rx Furosemide [Lasix] 20 mg PO BID 10/18/21 10/18/21 History Amoxic-Pot Clav 500-125 mg 1 tab PO Q12HR #14 tab 10/24/21 Rx [Augmentin 500-125 mg] Ipratropium-Albuterol Nebulize 3 ml INHALATION RT-QID #120 each 10/24/21 Rx [Duoneb 0.5 mg-3 mg/3 ml Soln] hydrALAZINE HCL [Apresoline] 10 mg PO BID #60 tab 10/24/21 Rx Allergies Allergy/AdvReac Type Severity Reaction Status Date / Time oxycodone [From Percocet] Allergy Unknown Verified 02/28/22 23:40 codeine AdvReac Nausea & Verified 02/28/22 23:40 Vomiting meperidine HCl [From Demerol] AdvReac Nausea & Verified 02/28/22 23:40 Vomiting morphine AdvReac Nausea & Verified 02/28/22 23:40 Vomiting Physical Exam Vitals: Vital Signs Temp Pulse Resp BP Pulse Ox 03/01/22 03:00 87 18 172/93 97 03/01/22 01:40 73 18 176/71 97 03/01/22 00:40 71 18 175/82 97 02/28/22 23:58 18 02/28/22 23:32 7.8 F L 66 20 200/89 97 Intake and Output 02/28/22 03/01/22 03/01/22 22:59 06:59 14:59 Other: Weight 49.895 kg Results 02/28/22 23:53 02/28/22 23:53 Cardiac Enzymes 02/28/22 02/28/22 03/01/22 Range/Units 23:53 23:53 05:26 AST 23 (14-36) U/L Troponin I <0.012 <0.012 (0.000-0.034) ng/mL Coagulation 02/28/22 Range/Units 23:53 PT 10.2 (9.0-12.0) sec APTT 21.3 L (22.0-30.0) sec CBC 02/28/22 Range/Units 23:53 WBC 10.9 H (3.8-10.6) k/uL RBC 3.24 L (3.80-5.40) m/uL Hgb 9.4 L (11.4-16.0) gm/dL Hct 28.7 L (34.0-46.0) % Plt Count 337 (150-450) k/uL Comprehensive Metabolic Panel 02/28/22 Range/Units 23:53 Sodium 135 L (137-145) mmol/L Potassium 4.2 (3.5-5.1) mmol/L Chloride 103 (98-107) mmol/L Carbon Dioxide 26 (22-30) mmol/L BUN 17 (7-17) mg/dL Creatinine 1.18 H (0.52-1.04) mg/dL Glucose 95 (74-99) mg/dL Calcium 8.3 L (8.4-10.2) mg/dL AST 23 (14-36) U/L ALT 16 (4-34) U/L Alkaline Phosphatase 111 (38-126) U/L Total Protein 6.4 (6.3-8.2) g/dL Albumin 3.0 L (3.5-5.0) g/dL Current Medications Generic Name Dose Route Start Last Admin Trade Name Freq PRN Reason Stop Dose Admin Albuterol/Ipratropium 3 ml 03/01/22 12:00 Ipratropium-Albuterol 3 Ml Neb INHALATION RT-QID [facility] Amlodipine Besylate 5 mg 03/01/22 09:00 Amlodipine 5 Mg Tab PO BID [facility] Aspirin 81 mg 03/01/22 09:00 Aspirin 81 Mg PO DAILY [facility] Calcium Carbonate/Glycine 500 mg 03/01/22 09:00 Calcium Carbonate 500 Mg Chewable PO DAILY [facility] Carvedilol 25 mg 03/01/22 09:00 Carvedilol 12.5 Mg Tab PO BID-W/MEALS [facility] Cholecalciferol 25 mcg 03/01/22 09:00 Cholecalciferol 25 Mcg (1000 Iu) Tablet PO DAILY [facility] Ezetimibe 10 mg 03/01/22 21:00 Ezetimibe 10 Mg Tab PO HS [facility] Furosemide 20 mg 03/01/22 09:00 Furosemide 20 Mg Tab PO BID [facility] Hydralazine HCl 10 mg 03/01/22 09:00 Hydralazine Hcl 10 Mg Tab PO BID [facility] Lorazepam 0.5 mg 03/01/22 08:09 Lorazepam 1 Mg Tab PO TID PRN Anxiety Naloxone HCl 0.2 mg 03/01/22 04:02 Naloxone 0.4 Mg/Ml 1 Ml Vial IV Q2M PRN Opioid Reversal Non-Formulary Medication 0.3 mg 03/01/22 09:00 Clonidine Hcl [Catapres] PO BID [facility] Non-Formulary Medication 1,000 mcg 03/01/22 09:00 Cyanocobalamin (Vitamin B-12) [Vitamin B-12] PO DAILY [facility] Non-Formulary Medication 400 mg 03/01/22 09:00 Megestrol Acetate [Megestrol Acetate] PO DAILY [facility] Non-Formulary Medication 50 mg 03/01/22 21:00 Mirabegron [Myrbetriq] PO HS [facility] Non-Formulary Medication 1 tab 03/01/22 09:00 Multivitamin/Iron/Folic Acid [Centrum Complete Multivit Tab] PO DAILY [facility] Non-Formulary Medication 1 drop 03/01/22 09:00 Prednisolone Acetate/Pf [Prednisolone Acet 1% Eye Drop] RIGHT EYE QID [facility] Non-Formulary Medication 20 mg 03/01/22 21:00 Simvastatin PO HS [facility] Potassium Chloride 20 meq 03/01/22 09:00 Potassium Chloride Er 20 Meq Tab.Er PO DAILY [facility] Trazodone HCl 50 mg 03/01/22 21:00 Trazodone Hcl 50 Mg Tab PO HS [facility] Intake and Output 02/28/22 03/01/22 03/01/22 22:59 06:59 14:59 Other: Weight 49.895 kg 02/28/22 23:53 02/28/22 23:53
[2022-03-01 11:08] VITALS: BP 180/80
[2022-03-01] MEDS: hydrALAZINE HCL 10 MG TAB PO SCH ×2 (11:08→11:09)
--- NOTE | 2022-03-01 11:50 | CA ---
Transthoracic Echo Report Name: Oumou Mazariegos Age: 89 Gender: F : 1930 Exam Date: 03/01/2022 08:44 Exam Location: [facility] Ht (in): 60 Wt (lb): 110 Ordering Physician: Danielle Saravia Attending/Referring Phys: [id number], Rani Ex Assistant/Program Director Makeda Gracia RDCS Procedure CPT: Indications: viral carditis Cardiac Hx: Technical Quality: Contrast 1: Total Dose (mL): Contrast 2: Total Dose (mL): MEASUREMENTS (Male / Female) Normal Values 2D ECHO LV Diastolic Diameter PLAX 3.6 cm 4.2 - 5.9 / 3.9 - 5.3 cm LV Systolic Diameter PLAX 2.6 cm IVS Diastolic Thickness 0.9 cm 0.6 - 1.0 / 0.6 - 0.9 cm LVPW Diastolic Thickness 1.2 cm 0.6 - 1.0 / 0.6 - 0.9 cm LV Relative Wall Thickness 0.6 RV Internal Dim ED PLAX 1.8 cm LA Systolic Diameter LX 2.4 cm 3.0 - 4.0 / 2.7 - 3.8 cm M-MODE Aortic Root Diameter MM 2.6 cm LA Systolic Diameter MM 2.7 cm LA Ao Ratio MM 1.1 MV E Point Septal Separation 0.7 cm AV Cusp Separation MM 1.5 cm DOPPLER AV Peak Velocity 229.5 cm/s AV Peak Gradient 21.1 mmHg AV Mean Velocity 165.5 cm/s AV Mean Gradient 12.2 mmHg AV Velocity Time Integral 49.6 cm LVOT Peak Velocity 121.6 cm/s LVOT Peak Gradient 5.9 mmHg MV Area PHT 2.5 cm??? Mitral E Point Velocity 60.1 cm/s Mitral A Point Velocity 108.4 cm/s Mitral E to A Ratio 0.6 MV Deceleration Time 298.7 ms MV E' Velocity 4.7 cm/s Mitral E to MV E' Ratio 12.7 FINDINGS Left Ventricle Mildly increased posterior wall thickness. Left ventricular cavity size normal. Left ventricular ejection fraction is estimated at 55 %. Right Ventricle Normal right ventricular size and function. Right ventricular systolic pressure within normal limits. Right Atrium Normal right atrial size. Left Atrium Normal left atrial size. Mitral Valve Mitral valve thickened. Mild mitral regurgitation. Aortic Valve Mild aortic stenosis with a peak gradient of 24 mmHg and a mean gradient of 13mmHg. Tricuspid Valve Structurally normal tricuspid valve. Mild tricuspid regurgitation. Pulmonic Valve Structurally normal pulmonic valve. Pericardium Echo free space anterior to the right ventricle likely represents a fat pad. Aorta Normal size aortic root and proximal ascending aorta. CONCLUSIONS LVH with preserved systolic function Previewed by: Dr. Adam Leyva MD (Electronically Signed) Final Date: 01 March 2022 11:49
[2022-03-01] MEDS ORDERED: IPRATROPIUM-ALBUTEROL 3 ML NEB INHALATION SCH (12:00)
--- NOTE | 2022-03-01 13:48 | P.DS ---
Providers Date of admission: 03/01/22 04:02 Attending physician: Uri Chaudhary Consults: 03/01/22 04:02 Consult Physician Urgent Consulting Provider: [facility] Consult Reason/Comments: acute chest pain Do you want consulting provider notified?: Yes Primary care physician: Uri Chaudhary - Discharge Diagnosis(es) (1) Chest pain Current Visit: Yes Status: Acute (2) At risk for readmission to hospital Current Visit: No Status: Acute (3) Dyspnea on exertion Current Visit: No Status: Acute (4) HTN (hypertension) Current Visit: No Status: Acute (5) Mild malnutrition Current Visit: No Status: Acute Hospital Course: This is discharge summary an 89-year-old white female essentially admitted for shortness of breath and dyspnea. History of chest pain and hypertensive urgency. The patient was stabilized and had no enzymatic elevation. The patient troponin was negative and echo cardio was unchanged from previous readings. Cardiology was consulted and she is discharged under stable condition. Prognosis is guarded secondary to her nutritional status and advancing age. We will follow up with her in 3-5 days Patient Condition at Discharge: Stable Plan - Discharge Summary New Discharge Prescriptions: Continue Carvedilol 25 mg PO BID Aspirin EC [Ecotrin Low Dose] 162 mg PO DAILY Simvastatin [Zocor] 20 mg PO HS cloNIDine HCL [Catapres] 0.3 mg PO BID Ezetimibe [Zetia] 10 mg PO HS Mirabegron [Myrbetriq] 50 mg PO DAILY traZODone HCL [Desyrel] 50 mg PO HS Furosemide [Lasix] 20 mg PO DAILY Calcium Carbonate/Vitamin D3 [Calcium 600 mg-Vit D3 5 mcg (200 unit)] 1 tab PO DAILY Isosorbide Mononitrate ER [Imdur] 30 mg PO DIRECTED Cholecalciferol [Vitamin D3 (25 Mcg = 1000 Iu)] 25 mcg PO DAILY Potassium Chloride ER [K-Dur 20] 20 meq PO DAILY 30 Days #30 tab Megestrol Acetate 400 mg PO DAILY hydrALAZINE HCL [Apresoline] 10 mg PO BID #60 tab Ipratropium-Albuterol Nebulize [Duoneb 0.5 mg-3 mg/3 ml Soln] 3 ml INHALATION RT-QID PRN PRN Reason: Shortness Of Breath LORazepam [Ativan] 1 mg PO TID PRN PRN Reason: Anxiety Vitamin B-12/Folic Acid 500 Mcg/400 Mcg 1 tab PO DAILY Nitroglycerin Sl Tabs [Nitrostat] 0.4 mg SUBLINGUAL Q5M PRN PRN Reason: Chest Pain Albuterol Inhaler [Ventolin Hfa Inhaler] 2 puff INHALATION RT-Q6H PRN PRN Reason: Shortness Of Breath amLODIPine [Norvasc] 10 mg PO DAILY Discharge Medication List Carvedilol 25 mg PO BID 12/18/13 [History] Aspirin EC [Ecotrin Low Dose] 162 mg PO DAILY 09/16/18 [History] Ezetimibe [Zetia] 10 mg PO HS 12/26/18 [History] Simvastatin [Zocor] 20 mg PO HS 12/26/18 [History] cloNIDine HCL [Catapres] 0.3 mg PO BID 12/26/18 [History] Mirabegron [Myrbetriq] 50 mg PO DAILY 08/07/20 [History] Cholecalciferol [Vitamin D3 (25 Mcg = 1000 Iu)] 25 mcg PO DAILY 10/22/20 [History] Potassium Chloride ER [K-Dur 20] 20 meq PO DAILY 30 Days #30 tab 08/16/21 [Rx] Megestrol Acetate 400 mg PO DAILY 08/21/21 [History] traZODone HCL [Desyrel] 50 mg PO HS 08/21/21 [History] Furosemide [Lasix] 20 mg PO DAILY 10/18/21 [History] hydrALAZINE HCL [Apresoline] 10 mg PO BID #60 tab 10/24/21 [Rx] Albuterol Inhaler [Ventolin Hfa Inhaler] 2 puff INHALATION RT-Q6H PRN 03/01/22 [History] Calcium Carbonate/Vitamin D3 [Calcium 600 mg-Vit D3 5 mcg (200 unit)] 1 tab PO DAILY 03/01/22 [History] Ipratropium-Albuterol Nebulize [Duoneb 0.5 mg-3 mg/3 ml Soln] 3 ml INHALATION RT-QID PRN 03/01/22 [History] Isosorbide Mononitrate ER [Imdur] 30 mg PO DIRECTED 03/01/22 [History] LORazepam [Ativan] 1 mg PO TID PRN 03/01/22 [History] Nitroglycerin Sl Tabs [Nitrostat] 0.4 mg SUBLINGUAL Q5M PRN 03/01/22 [History] Vitamin B-12/Folic Acid 500 Mcg/400 Mcg 1 tab PO DAILY 03/01/22 [History] amLODIPine [Norvasc] 10 mg PO DAILY 03/01/22 [History] Follow up Appointment(s)/Referral(s): [facility] [Provider Group] - 2 Weeks Uri Chaudhary MD [Primary Care Provider] - 1-2 days
[2022-03-01 14:25] VITALS: PULSE 78; TEMP 98.1
[2022-03-01] MEDS ORDERED: NON FORMULARY DRUG (Mirabegron [Myrbetriq] 50 MG Tab.Er.24h) PO SCH (21:00)
[2022-03-01] MEDS ORDERED: EZETIMIBE 10 MG TAB PO SCH (21:00)
[2022-03-01] MEDS ORDERED: ATORVASTATIN 10 MG TAB PO SCH (21:00)
[2022-03-01] MEDS ORDERED: traZODone HCL 50 MG TAB PO SCH (21:00)
== END 2022-03-01 14:25 | disposition home or self-care (01) ==
LOC: EC 23:24 → 6NMEDSUR 03-01 04:02
PROVIDERS: ADMIT Family Medicine; ATTEND Family Medicine
DX: R07.89 Other chest pain (principal); E44.1 Mild protein-calorie malnutrition; R06.09 Other forms of dyspnea; R79.89 Other specified abnormal findings of blood chemistry; I10 Essential (primary) hypertension; I08.0 Rheumatic disorders of both mitral and aortic valves; R91.8 Other nonspecific abnormal finding of lung field; R59.9 Enlarged lymph nodes, unspecified; I25.10 Atherosclerotic heart disease of native coronary artery without angina pectoris; E78.5 Hyperlipidemia, unspecified; I25.2 Old myocardial infarction; K21.9 Gastro-esophageal reflux disease without esophagitis; K57.90 Diverticulosis of intestine, part unspecified, without perforation or abscess without bleeding; G89.29 Other chronic pain; M54.9 Dorsalgia, unspecified; M16.0 Bilateral primary osteoarthritis of hip; M47.9 Spondylosis, unspecified; R32 Unspecified urinary incontinence; F41.9 Anxiety disorder, unspecified; Z79.82 Long term (current) use of aspirin; Z79.899 Other long term (current) drug therapy; Z88.5 Allergy status to narcotic agent; Z86.73 Personal history of transient ischemic attack (TIA), and cerebral infarction without residual deficits; Z91.89 Other specified personal risk factors, not elsewhere classified; Z87.01 Personal history of pneumonia (recurrent); Z87.440 Personal history of urinary (tract) infections; Z90.710 Acquired absence of both cervix and uterus; Z90.49 Acquired absence of other specified parts of digestive tract; Z98.1 Arthrodesis status; Z98.42 Cataract extraction status, left eye; Z98.41 Cataract extraction status, right eye; Z96.1 Presence of intraocular lens; Z98.890 Other specified postprocedural states; Z87.891 Personal history of nicotine dependence; Z86.79 Personal history of other diseases of the circulatory system; Z82.49 Family history of ischemic heart disease and other diseases of the circulatory system
CPT/HCPCS: 96360; 99285; 36415; 93005; 93306; 85379; 83880; 80053; 83690; 83735; 84484; 85025; 85610; 85730; 71046; 71275; G0378; S0179; Q9967

== ENCOUNTER 2022-07-06 14:19 | Emergency (ER) | payer MEDICARE ==
[2022-07-06] MEDS ORDERED: SODIUM CHLORIDE 0.9% 500 ML 500 ML IV STA (15:47)
[2022-07-06] MEDS ORDERED: SODIUM CHLORIDE 0.9% 1,000 ML IV STA (15:47)
--- NOTE | 2022-07-06 15:48 | ED ---
Abdominal Pain HPI - General Chief Complaint: Abdominal Pain Stated Complaint: Abd Pain, Weakness Source: patient, RN notes reviewed, old records reviewed Mode of arrival: EMS Limitations: no limitations - History of Present Illness Initial Comments: This is a 11-year-old female DF for evaluation patient presents with family for evaluation of abdominal pain one episode of nausea and significant diarrhea. Patient's daughter who is at bedside providing helpful history. A significantly have significant amount of diarrhea all sitting in her chair today. This is not an issue that she's had before without prior loss of bowel. Patient states she does not know if she had to go. Apparently during the symptoms he also vomiting. Otherwise no complaints no fevers no travel show sick contacts no other significant symptoms. Patient herself denies symptoms here in the emergency department MD Complaint: abdominal pain -: unknown Location: diffuse Radiation: none Migration to: no migration Severity: mild Quality: aching Consistency: constant Improves With: bowel movement Context: other Associated Symptoms: nausea, vomiting, diarrhea Treatments Prior to Arrival: other (0) - Related Data Home Medications Medication Instructions Recorded Confirmed Carvedilol 25 mg PO BID 12/18/13 05/19/22 Aspirin EC [Ecotrin Low Dose] 81 mg PO HS 09/16/18 05/19/22 Ezetimibe [Zetia] 10 mg PO HS 12/26/18 05/19/22 Simvastatin [Zocor] 20 mg PO HS 12/26/18 05/19/22 cloNIDine HCL [Catapres] 0.3 mg PO BID 12/26/18 05/19/22 Mirabegron [Myrbetriq] 50 mg PO DAILY 08/07/20 05/19/22 traZODone HCL [Desyrel] 50 mg PO HS 08/21/21 05/19/22 Furosemide [Lasix] 20 mg PO DAILY 10/18/21 05/19/22 Albuterol Inhaler [Ventolin Hfa 2 puff INHALATION RT-Q6H PRN 03/01/22 05/19/22 Inhaler] Ipratropium-Albuterol Nebulize 3 ml INHALATION RT-QID PRN 03/01/22 05/19/22 [Duoneb 0.5 mg-3 mg/3 ml Soln] LORazepam [Ativan] 1 mg PO BID PRN 03/01/22 05/19/22 Nitroglycerin Sl Tabs [Nitrostat] 0.4 mg SUBLINGUAL Q5M PRN 03/01/22 05/19/22 amLODIPine [Norvasc] 10 mg PO DAILY 03/01/22 05/19/22 Docusate [Colace] 100 mg PO BID 05/13/22 05/19/22 LORazepam [Ativan] 1 mg PO HS 05/13/22 05/19/22 Multivit/Folic Acid/Vit K1 1 tab PO DAILY 05/13/22 05/19/22 [One-A-Day Women's 50 Plus Tab] Valsartan [Diovan] 160 mg PO HS 05/13/22 05/19/22 Previous Rx's Medication Instructions Recorded Potassium Chloride ER [K-Dur 20] 20 meq PO DAILY 30 Days #30 tab 08/16/21 hydrALAZINE HCL [Apresoline] 10 mg PO BID #60 tab 10/24/21 Amoxic-Pot Clav 500-125 mg 1 tab PO Q12HR 7 Days #14 tab 05/20/22 [Augmentin 500-125 mg] predniSONE [Deltasone] 20 mg PO DAILY 3 Days #6 tab 05/20/22 Cephalexin [Keflex] 500 mg PO Q6HR #20 cap 07/06/22 Allergies Allergy/AdvReac Type Severity Reaction Status Date / Time oxycodone [From Percocet] Allergy Unknown Verified 05/19/22 10:59 codeine AdvReac Nausea & Verified 05/19/22 10:59 Vomiting meperidine HCl [From Demerol] AdvReac Nausea & Verified 05/19/22 10:59 Vomiting morphine AdvReac Nausea & Verified 05/19/22 10:59 Vomiting Review of Systems ROS Statement: Those systems with pertinent positive or pertinent negative responses have been documented in the HPI. ROS Other: All systems not noted in ROS Statement are negative. Past Medical History Past Medical History: Chest Pain / Angina, CVA/TIA, GERD/Reflux, Hyperlipidemia, Hypertension, Myocardial Infarction ([place]), Pneumonia, Syncope Additional Past Medical History / Comment(s): Past syncopal episodes, TIAs, UTIs, DJD spin, chronic back pain, arthritis hips and back, diverticular disease.urinary incontinence- wears briefs Last Myocardial Infarction Date:: 11/16/2010 History of Any Multi-Drug Resistant Organisms: None Reported Past Surgical History: Adenoidectomy, Appendectomy, Back Surgery, Cholecystectomy, Heart Catheterization, Hysterectomy, Tonsillectomy Additional Past Surgical History / Comment(s): cardiac caths in 2010 and 2013, back fusion/discectomy, colonoscopy, bilateral cataract removal with lens im plants, Past Anesthesia/Blood Transfusion Reactions: Postoperative Nausea & Vomiting (PONV) Past Psychological History: Anxiety Smoking Status: Former smoker Past Alcohol Use History: None Reported Past Drug Use History: None Reported - Past Family History Father Additional Family Medical History / Comment(s): Father at the age of 57yrs with "heart problems". Mother Additional Family Medical History / Comment(s): Mother had an enlarged heart. She at the age of 79yrs. General Exam Limitations: no limitations General appearance: alert, in no apparent distress Head exam: Present: atraumatic, normocephalic, normal inspection Eye exam: Present: normal appearance, PERRL, EOMI. Absent: scleral icterus, conjunctival injection, periorbital swelling ENT exam: Present: normal exam, mucous membranes moist Neck exam: Present: normal inspection. Absent: tenderness, meningismus, lymphadenopathy Respiratory exam: Present: normal lung sounds bilaterally. Absent: respiratory distress, wheezes, rales, rhonchi, stridor Cardiovascular Exam: Present: regular rate, normal rhythm, normal heart sounds. Absent: systolic murmur, diastolic murmur, rubs, gallop, clicks GI/Abdominal exam: Present: soft, normal bowel sounds. Absent: distended, tenderness, guarding, rebound, rigid Extremities exam: Present: normal inspection, full ROM, normal capillary refill. Absent: tenderness, pedal edema, joint swelling, calf tenderness Back exam: Present: normal inspection Neurological exam: Present: alert, oriented X3, CN II-XII intact Psychiatric exam: Present: normal affect, normal mood Skin exam: Present: warm, dry, intact, normal color. Absent: rash Course Vital Signs 07/06/22 07/06/22 07/06/22 14:34 15:50 17:41 Temperature 97.6 F 97.9 F Pulse Rate 81 72 68 Respiratory 18 16 18 Rate Blood Pressure 131/74 165/63 170/64 O2 Sat by Pulse 96 94 L 96 Oximetry 07/06/22 18:27 Temperature 97.5 F L Pulse Rate 71 Respiratory 15 Rate Blood Pressure 174/63 O2 Sat by Pulse 99 Oximetry - Reevaluation(s) Reevaluation #1: 07/06/22 17:22 Medical record is reviewed Reevaluation #2: 07/06/22 17:22 Patient informed of results and questions answered Reevaluation #3: 07/06/22 17:22 Patient symptoms are improved here in the ER Reevaluation #4: 07/06/22 17:22 Was pt. sent in by a medical professional or institution? @ -no Did you speak to anyone other than the patient for history? @ -family at bedside stating patient had significant loss of bowel w diarrhea at home and vomiting Did you review nursing and triage notes? @ -agree Were old charts reviewed? @ -no Differential Diagnosis? @ -abd pain, prior EKG interpreted by me (3pts min.)? @ -no X-rays interpreted by me (1pt min.)? @ -no CT interpreted by me (1pt min.)? @ - no U/S interpreted by me (1pt. min.)? @ -no What testing was considered but not performed? (CT, X-rays, U/S, labs)? Why? @ no What meds were considered but not given? Why? @ -no Did you discuss the management of the patient with other professionals? @ -no Did you reconcile home meds? @ -no Was smoking cessation discussed for >3mins.? @ -no Was critical care preformed (if so, how long)? @ -no Were there social determinants of health that impacted care today? How? (Homelessness, low income, unemployed, alcoholism, drug addiction, transportation, low edu. Level, literacy, decrease access to med. care, skilled nursing, rehab)? @ -no Was there de-escalation of care discussed even if they declined? (Discuss DNR or withdrawal of care, Hospice)? @ -no What co-morbidities impacted this encounter? (DM, HTN, Smoking, COPD, CAD, Cancer, CVA, Hep., AIDS, mental health diagnosis, sleep apnea, morbid obesity)? @ -no Was patient admitted / discharged? @ -dc Undiagnosed new problem with uncertain prognosis? @ -no Drug Therapy requiring intensive monitoring for toxicity (Heparin, Nitro, Insulin, Cardizem)? @ -no Were any procedures done? @ -no Diagnosis/symptom? @ -no Acute, or Chronic, or Acute on Chronic? @ -acute Uncomplicated (without systemic symptoms) or Complicated (systemic symptoms)? @ -uncomplicated Side effects of treatment? @ -no Exacerbation, Progression, or Severe Exacerbation] @ -no Poses a threat to life or bodily function? @ -no Reevaluation #5: 07/06/22 17:22 Differential Abdominal Pain Women: Appendicitis, Cholecystitis, diverticulosis, ischemic bowel, pancreatitis, hepatitis, UTI, gastroenteritis, AAA, incarcerated hernia, bowel obstruction, constipation, inflammatory bowel, hepatitis, peptic ulcer disease, splenic infarction, perforated viscus, vulvitis, ovarian torsion, PID, kidney stone, placenta abruption, this is not meant to be an all-inclusive list Medical Decision Making - Medical Decision Making 89 female to the emergency department for evaluation of significant diarrhea. No abdominal pain no other findings here in the ER patient can be discharged home - Lab Data Result diagrams: 07/06/22 16:25 07/06/22 16:25 Lab Results 07/06/22 07/06/22 07/06/22 Range/Units 16:25 16:25 16:25 WBC 16.2 H (3.8-10.6) k/uL RBC 3.61 L (3.80-5.40) m/uL Hgb 9.7 L (11.4-16.0) gm/dL Hct 31.1 L (34.0-46.0) % MCV 86.1 (80.0-100.0) fL MCH 26.9 (25.0-35.0) pg MCHC 31.2 (31.0-37.0) g/dL RDW 15.5 (11.5-15.5) % Plt Count 436 (150-450) k/uL MPV 6.9 Neutrophils % 86 % Lymphocytes % 9 % Monocytes % 3 % Eosinophils % 1 % Basophils % 0 % Neutrophils # 13.9 H (1.3-7.7) k/uL Lymphocytes # 1.5 (1.0-4.8) k/uL Monocytes # 0.5 (0-1.0) k/uL Eosinophils # 0.1 (0-0.7) k/uL Basophils # 0.0 (0-0.2) k/uL Sodium 133 L (137-145) mmol/L Potassium 4.7 (3.5-5.1) mmol/L Chloride 97 L (98-107) mmol/L Carbon Dioxide 30 (22-30) mmol/L Anion Gap 6 mmol/L BUN 17 (7-17) mg/dL Creatinine 1.27 H (0.52-1.04) mg/dL Est GFR (CKD-EPI)AfAm 43 (>60 ml/min/1.73 sqM) Est GFR (CKD-EPI)NonAf 38 (>60 ml/min/1.73 sqM) Glucose 104 H (74-99) mg/dL Plasma Lactic Acid Romeo 0.7 (0.7-2.0) mmol/L Calcium 9.3 (8.4-10.2) mg/dL Total Bilirubin 0.3 (0.2-1.3) mg/dL AST 23 (14-36) U/L ALT 15 (4-34) U/L Alkaline Phosphatase 129 H (38-126) U/L Total Protein 6.8 (6.3-8.2) g/dL Albumin 3.1 L (3.5-5.0) g/dL Amylase 254 H (30-110) U/L Lipase 404 H (23-300) U/L Urine Color Urine Appearance (Clear) Urine pH (5.0-8.0) Ur Specific [place] (1.001-1.035) Urine Protein (Negative) Urine Glucose (UA) (Negative) Urine Ketones (Negative) Urine Blood (Negative) Urine Nitrite (Negative) Urine Bilirubin (Negative) Urine Urobilinogen (<2.0) mg/dL Ur Leukocyte Esterase (Negative) Urine RBC (0-5) /hpf Urine WBC (0-5) /hpf Ur Squamous Epith Cells (0-4) /hpf Urine Bacteria (None) /hpf Hyaline Casts (0-2) /lpf Urine Mucus (None) /hpf 07/06/22 Range/Units 17:25 WBC (3.8-10.6) k/uL RBC (3.80-5.40) m/uL Hgb (11.4-16.0) gm/dL Hct (34.0-46.0) % MCV (80.0-100.0) fL MCH (25.0-35.0) pg MCHC (31.0-37.0) g/dL RDW (11.5-15.5) % Plt Count (150-450) k/uL MPV Neutrophils % % Lymphocytes % % Monocytes % % Eosinophils % % Basophils % % Neutrophils # (1.3-7.7) k/uL Lymphocytes # (1.0-4.8) k/uL Monocytes # (0-1.0) k/uL Eosinophils # (0-0.7) k/uL Basophils # (0-0.2) k/uL Sodium (137-145) mmol/L Potassium (3.5-5.1) mmol/L Chloride (98-107) mmol/L Carbon Dioxide (22-30) mmol/L Anion Gap mmol/L BUN (7-17) mg/dL Creatinine (0.52-1.04) mg/dL Est GFR (CKD-EPI)AfAm (>60 ml/min/1.73 sqM) Est GFR (CKD-EPI)NonAf (>60 ml/min/1.73 sqM) Glucose (74-99) mg/dL Plasma Lactic Acid Romeo (0.7-2.0) mmol/L Calcium (8.4-10.2) mg/dL Total Bilirubin (0.2-1.3) mg/dL AST (14-36) U/L ALT (4-34) U/L Alkaline Phosphatase (38-126) U/L Total Protein (6.3-8.2) g/dL Albumin (3.5-5.0) g/dL Amylase (30-110) U/L Lipase (23-300) U/L Urine Color Light Yellow Urine Appearance Cloudy H (Clear) Urine pH 7.0 (5.0-8.0) Ur Specific [place] 1.007 (1.001-1.035) Urine Protein 1+ H (Negative) Urine Glucose (UA) Negative (Negative) Urine Ketones Negative (Negative) Urine Blood Small H (Negative) Urine Nitrite Negative (Negative) Urine Bilirubin Negative (Negative) Urine Urobilinogen <2.0 (<2.0) mg/dL Ur Leukocyte Esterase Large H (Negative) Urine RBC 20 H (0-5) /hpf Urine WBC 129 H (0-5) /hpf Ur Squamous Epith Cells <1 (0-4) /hpf Urine Bacteria Many H (None) /hpf Hyaline Casts 8 H (0-2) /lpf Urine Mucus Rare H (None) /hpf Disposition Clinical Impression: Abdominal pain, Weakness, Diarrhea, UTI (urinary tract infection) Disposition: HOME SELF-CARE Condition: Good Instructions (If sedation given, give patient instructions): Urinary Tract Infection in Women (ED) Prescriptions: Cephalexin [Keflex] 500 mg PO Q6HR #20 cap Is patient prescribed a controlled substance at d/c from ED?: No Referrals: Uri Chaudhary MD [Primary Care Provider] - 1-2 days Time of Disposition: 19:00
[2022-07-06 16:49] LABS: Basophils % (A) 0 %; Eosinophils # (A) 0.1 k/uL (0-0.7); Eosinophils % (A) 1 %; HCT 31.1 % (34.0-46.0); HGB 9.7 gm/dL (11.4-16.0); Lymphocytes # (A) 1.5 k/uL (1.0-4.8); Lymphocytes % (A) 9 %; MCH 26.9 pg (25.0-35.0); MCHC 31.2 g/dL (31.0-37.0); MCV 86.1 fL (80.0-100.0); Mean Platelet Volume 6.9; Monocytes # (A) 0.5 k/uL (0-1.0); Monocytes % (A) 3 %; Neutrophils # (A) 13.9 k/uL (1.3-7.7); Neutrophils % (A) 86 %; Platelet Count 436 k/uL (150-450); RBC 3.61 m/uL (3.80-5.40); RDW 15.5 % (11.5-15.5); WBC 16.2 k/uL (3.8-10.6)
[2022-07-06 17:03] LABS: Albumin 3.1 g/dL (3.5-5.0); Calcium 9.3 mg/dL (8.4-10.2); Potassium 4.7 mmol/L (3.5-5.1); Total Bilirubin 0.3 mg/dL (0.2-1.3); Total Protein 6.8 g/dL (6.3-8.2)
[2022-07-06 18:01] LABS: Appearance,Urine Cloudy (Clear); Bacteria,Urine Many /hpf; Bilirubin,Urine Negative (Negative); Blood,Urine Small (Negative); Color,Urine Light Yellow; Glucose,Urine (UA) Negative (Negative); Hyaline Casts,Urine 8 /lpf (0-2); Ketones,Urine Negative (Negative); Leukocyte Esterase,Urine Large (Negative); Mucus,Urine Rare /hpf; Nitrite,Urine Negative (Negative); Protein,Urine 1+ (Negative); RBC,Urine 20 /hpf (0-5); Specific Gravity,Urine 1.007 (1.001-1.035); Squamous Epithelial Cell,Urine <1 /hpf (0-4); Urobilinogen,Urine <2.0 mg/dL (<2.0); WBC,Urine 129 /hpf (0-5)
[2022-07-06] MEDS ORDERED: cefTRIAXone IN SWFI 1,000 MG/10 ML SYRINGE IVP STA (18:14)
[2022-07-06 18:29] VITALS: BP 174/63; PULSE 71; RESP 15; TEMP 97.5
--- NOTE | 2022-07-06 18:36 | CT ---
EXAMINATION TYPE: CT abdomen pelvis wo con CT DLP: 304.2 mGycm, Automated exposure control for dose reduction was used. DATE OF EXAM: 07/06/2022 5:14 PM COMPARISON: CT abdomen pelvis most recent from 12/26/2018, CT chest 04/29/2022. CLINICAL INDICATION:Female, 89 years old with history of pain; pain TECHNIQUE: Standard CT of the abdomen and pelvis without IV or oral contrast. Lack of IV or oral co ntrast limits evaluation of solid and hollow organ viscera. Coronal and sagittal reformats were perfo rmed. FINDINGS: Limited exam due to paucity of intra-abdominal fat and lack of intravenous contrast. LOWER CHEST: Similar patchy reticular and nodular opacities within the lingula and right middle lobe. ABDOMEN LIVER: Unremarkable noncontrast appearance. GALLBLADDER AND BILE DUCTS: The gallbladder is surgically absent. PANCREAS: Unremarkable noncontrast appearance. SPLEEN: Unremarkable noncontrast appearance. ADRENAL GLANDS: Right adrenal gland is unremarkable. Nonspecific thickening of the left adrenal gland .. KIDNEYS AND URETERS: No evidence of hydronephrosis or renal calculus. Bilateral extrarenal pelvises. PELVIS BLADDER: Unremarkable REPRODUCTIVE: The uterus is surgically absent. Pelvic floor laxity. ABDOMEN & PELVIS STOMACH AND BOWEL: Stomach and duodenum are unremarkable cervical ventral wall thickening of the rect um. No pneumatosis. No evidence of bowel obstruction. PERITONEUM: No evidence of pneumoperitoneum or free fluid. VASCULATURE: Severe atherosclerotic calcifications are present throughout the abdominal aorta and its branches. Redemonstration of splenic artery aneurysm measuring up to 9 mm. No evidence of aortic ane urysm. MUSCULOSKELETAL: No acute osseous abnormalities . Chronic anterior wedge compression deformity of the L3 vertebral body with approximately 15% height loss. Grade 1 anterolisthesis of L2 on L3. 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 Less sclerotic appearance of the sacrum from prior examination. LYMPH NODES: No gross evidence for lymphadenopathy. SOFT TISSUE/ABDOMINAL WALL: Unremarkable IMPRESSION: 1. Circumferential wall thickening of the rectum concerning for proctitis. 2. Similar reticular nodular opacities within the lingula and right middle lobe may represent infecti ous/inflammatory process versus pulmonary fibrotic changes. 3. Chronic appearing anterior wedge compression deformity L3 vertebral body with grade 1 anterolisthe sis of L2 on L3. Correlate with point tenderness.
[2022-07-06] MEDS ORDERED: CEPHALEXIN 500MG STARTER PACK 4 CAP BTL PO STA (19:14)
== END 2022-07-06 19:30 | disposition home or self-care (01) ==
LOC: EC 14:19
DX: N39.0 Urinary tract infection, site not specified (principal); R53.1 Weakness; I10 Essential (primary) hypertension; I25.2 Old myocardial infarction; F41.9 Anxiety disorder, unspecified; E78.5 Hyperlipidemia, unspecified; K21.9 Gastro-esophageal reflux disease without esophagitis; Z79.52 Long term (current) use of systemic steroids; Z79.82 Long term (current) use of aspirin; Z79.899 Other long term (current) drug therapy; Z87.891 Personal history of nicotine dependence; Z88.5 Allergy status to narcotic agent; Z88.8 Allergy status to other drugs, medicaments and biological substances; Z90.49 Acquired absence of other specified parts of digestive tract
CPT/HCPCS: 36415; 80053; 82150; 83605; 83690; 85025; 81001; 74176; 99284; 96374; 96361 ×3; J0696

== ENCOUNTER 2022-07-30 22:15 | Emergency (ER) | payer MEDICARE ==
[2022-07-30 22:21] VITALS: RESP 16; TEMP 98.1
[2022-07-30] MEDS ORDERED: SODIUM CHLORIDE 0.9% 500 ML 500 ML IV STA (22:37)
--- NOTE | 2022-07-30 22:53 | ED ---
Abdominal Pain HPI - General Chief Complaint: Abdominal Pain Stated Complaint: ABD pain Time Seen by Provider: 07/30/22 22:29 Source: patient, RN notes reviewed Mode of arrival: wheelchair Limitations: no limitations - History of Present Illness Initial Comments: 89-year-old female presents emergency Department chief complaint of abdominal pain. Patient states she's had pain in the left lower quadrant worse in the last 1 week. Patient states that she was her proximal one month ago complaining of similar pain is worse. She states that she was diagnosed with UTI patient has a nausea vomiting she's had prior abdominal surgeries nothing recent. No history of bowel obstruction patient reports no chest pain or shortness breath no fever - Related Data Home Medications Medication Instructions Recorded Confirmed Carvedilol 25 mg PO BID 12/18/13 05/19/22 Aspirin EC [Ecotrin Low Dose] 81 mg PO HS 09/16/18 05/19/22 Ezetimibe [Zetia] 10 mg PO HS 12/26/18 05/19/22 Simvastatin [Zocor] 20 mg PO HS 12/26/18 05/19/22 cloNIDine HCL [Catapres] 0.3 mg PO BID 12/26/18 05/19/22 Mirabegron [Myrbetriq] 50 mg PO DAILY 08/07/20 05/19/22 traZODone HCL [Desyrel] 50 mg PO HS 08/21/21 05/19/22 Furosemide [Lasix] 20 mg PO DAILY 10/18/21 05/19/22 Albuterol Inhaler [Ventolin Hfa 2 puff INHALATION RT-Q6H PRN 03/01/22 05/19/22 Inhaler] Ipratropium-Albuterol Nebulize 3 ml INHALATION RT-QID PRN 03/01/22 05/19/22 [Duoneb 0.5 mg-3 mg/3 ml Soln] LORazepam [Ativan] 1 mg PO BID PRN 03/01/22 05/19/22 Nitroglycerin Sl Tabs [Nitrostat] 0.4 mg SUBLINGUAL Q5M PRN 03/01/22 05/19/22 amLODIPine [Norvasc] 10 mg PO DAILY 03/01/22 05/19/22 Docusate [Colace] 100 mg PO BID 05/13/22 05/19/22 LORazepam [Ativan] 1 mg PO HS 05/13/22 05/19/22 Multivit/Folic Acid/Vit K1 1 tab PO DAILY 05/13/22 05/19/22 [One-A-Day Women's 50 Plus Tab] Valsartan [Diovan] 160 mg PO HS 05/13/22 05/19/22 Previous Rx's Medication Instructions Recorded Potassium Chloride ER [K-Dur 20] 20 meq PO DAILY 30 Days #30 tab 08/16/21 hydrALAZINE HCL [Apresoline] 10 mg PO BID #60 tab 10/24/21 Amoxic-Pot Clav 500-125 mg 1 tab PO Q12HR 7 Days #14 tab 05/20/22 [Augmentin 500-125 mg] predniSONE [Deltasone] 20 mg PO DAILY 3 Days #6 tab 05/20/22 Cephalexin [Keflex] 500 mg PO Q6HR #20 cap 07/06/22 Allergies Allergy/AdvReac Type Severity Reaction Status Date / Time oxycodone [From Percocet] Allergy Unknown Verified 05/19/22 10:59 codeine AdvReac Nausea & Verified 05/19/22 10:59 Vomiting meperidine HCl [From Demerol] AdvReac Nausea & Verified 05/19/22 10:59 Vomiting morphine AdvReac Nausea & Verified 05/19/22 10:59 Vomiting Review of Systems ROS Statement: Those systems with pertinent positive or pertinent negative responses have been documented in the HPI. ROS Other: All systems not noted in ROS Statement are negative. Past Medical History Past Medical History: Chest Pain / Angina, CVA/TIA, GERD/Reflux, Hyperlipidemia, Hypertension, Myocardial Infarction ([place]), Pneumonia, Syncope Additional Past Medical History / Comment(s): Past syncopal episodes, TIAs, UTIs, DJD spin, chronic back pain, arthritis hips and back, diverticular disease.urinary incontinence- wears briefs Last Myocardial Infarction Date:: 11/16/2010 History of Any Multi-Drug Resistant Organisms: None Reported Past Surgical History: Adenoidectomy, Appendectomy, Back Surgery, Cholecystectomy, Heart Catheterization, Hysterectomy, Tonsillectomy Additional Past Surgical History / Comment(s): cardiac caths in 2010 and 2013, back fusion/discectomy, colonoscopy, bilateral cataract removal with lens implants, Past Anesthesia/Blood Transfusion Reactions: Postoperative Nausea & Vomiting (PONV) Past Psychological History: Anxiety Smoking Status: Former smoker Past Alcohol Use History: None Reported Past Drug Use History: None Reported - Past Family History Father Additional Family Medical History / Comment(s): Father at the age of 57yrs with "heart problems". Mother Additional Family Medical History / Comment(s): Mother had an enlarged heart. She at the age of 79yrs. General Exam Limitations: no limitations General appearance: alert, in no apparent distress Head exam: Present: atraumatic, normocephalic, normal inspection Eye exam: Present: normal appearance, PERRL, EOMI. Absent: scleral icterus, conjunctival injection, periorbital swelling ENT exam: Present: normal exam, normal oropharynx, mucous membranes moist Neck exam: Present: normal inspection, full ROM. Absent: tenderness, meningismus, lymphadenopathy Respiratory exam: Present: normal lung sounds bilaterally. Absent: respiratory distress, wheezes, rales, rhonchi, stridor Cardiovascular Exam: Present: regular rate, normal rhythm, normal heart sounds. Absent: systolic murmur, diastolic murmur, rubs, gallop, clicks GI/Abdominal exam: Present: soft, tenderness (Left lower quadrant), normal bowel sounds. Absent: distended, guarding, rebound, rigid Course Vital Signs 07/30/22 07/31/22 22:16 00:37 Temperature 98.1 F Pulse Rate 73 65 Respiratory 16 16 Rate Blood Pressure 145/75 149/55 O2 Sat by Pulse 98 96 Oximetry Medical Decision Making - Medical Decision Making Was pt. sent in by a medical professional or institution (, PA, PLANT SAFETY LEADER, urgent care, hospital, or long-term...) When possible be specific @ -No Did you speak to anyone other than the patient for history (EMS, parent, family, police, friend...)? What history was obtained from this source @ -No Did you review nursing and triage notes (agree or disagree)? Why? @ -I reviewed and agree with nursing and triage notes Were old charts reviewed (outside hosp., previous admission, EMS record, old EKG, old radiological studies, urgent care reports/EKG's, long-term records)? Report findings @ -No old charts were reviewed Differential Diagnosis (chest pain, altered mental status, abdominal pain women, abdominal pain men, vaginal bleeding, weakness, fever, dyspnea, syncope, headache, dizziness, GI bleed, back pain, seizure, CVA, palpatations, mental health, musculoskeletal)? @ -nDifferential Abdominal Pain Women: Appendicitis, Cholecystitis, diverticulosis, ischemic bowel, pancreatitis, hepatitis, UTI, gastroenteritis, AAA, incarcerated hernia, bowel obstruction, constipation, inflammatory bowel, hepatitis, peptic ulcer disease, splenic infarction, perforated viscus, vulvitis, ovarian torsion, PID, kidney stone, placenta abruption, this is not meant to be an all-inclusive listle EKG interpreted by me (3pts min.). @ -None X-rays interpreted by me (1pt min.). @ -None done CT interpreted by me (1pt min.). @ -CT abdomen and pelvis shows evidence of constipation, normal appendix possible infiltrate right lower U/S interpreted by me (1pt. min.). @ -None done What testing was considered but not performed or refused? (CT, X-rays, U/S, labs)? Why? @ -None What meds were considered but not given or refused? Why? @ -None Did you discuss the management of the patient with other professionals (professionals i.e. , PA, PLANT SAFETY LEADER, lab, RT, psych nurse, social media job titles, national sales associate, teacher, veterinary medical officer, watch case polisher)? Give summary @ -No Was smoking cessation discussed for >3mins.? @ -No Was critical care preformed (if so, how long)? @ -No Were there social determinants of health that impacted care today? How? (Homelessness, low income, unemployed, alcoholism, drug addiction, transportation, low edu. Level, literacy, decrease access to med. care, fdc, rehab)? @ -No Was there de-escalation of care discussed even if they declined (Discuss DNR or withdrawal of care, Hospice)? DNR status @ -No What co-morbidities impacted this encounter? (DM, HTN, Smoking, COPD, CAD, Cancer, CVA, ARF, Chemo, Hep., AIDS, mental health diagnosis, sleep apnea, morbid obesity)? @ -None Was patient admitted / discharged? Hospital course, mention meds given and route, prescriptions, significant lab abnormalities, going to OR and other pertinent info. @ -Discharged patient has evidence of constipation on CT laboratory studies essentially unremarkable questionable infiltrate on the right lung though patient is asymptomatic has no cough or cold-like symptoms. Patient feels comfortable discharged with close follow patient will try [id number] MiraLAX or Dulcolax as directed. Undiagnosed new problem with uncertain prognosis? @ -No Drug Therapy requiring intensive monitoring for toxicity (Heparin, Nitro, Insulin, Cardizem)? @ -No Were any procedures done? @ -No Diagnosis/symptom? @ -Constipation Acute, or Chronic, or Acute on Chronic? @ -Acute Uncomplicated (without systemic symptoms) or Complicated (systemic symptoms)? @ -Uncomplicated Side effects of treatment? @ -No Exacerbation, Progression, or Severe Exacerbation? @ -No Poses a threat to life or bodily function? How? (Chest pain, [place], [place], pneumonia, PE, COPD, DKA, ARF, appy, cholecystitis, CVA, Diverticulitis, Homicidal, Suicidal, threat to staff... and all critical care pts) @ -No - Lab Data Result diagrams: 07/30/22 22:56 07/30/22 22:56 Lab Results 07/30/22 07/30/22 07/30/22 Range/Units 22:56 22:56 22:56 WBC 9.6 (3.8-10.6) k/uL RBC 3.24 L (3.80-5.40) m/uL Hgb 9.0 L (11.4-16.0) gm/dL Hct 29.1 L (34.0-46.0) % MCV 89.7 (80.0-100.0) fL MCH 27.8 (25.0-35.0) pg MCHC 30.9 L (31.0-37.0) g/dL RDW 16.3 H (11.5-15.5) % Plt Count 341 (150-450) k/uL MPV 7.2 Neutrophils % 67 % Lymphocytes % 19 % Monocytes % 7 % Eosinophils % 5 % Basophils % 1 % Neutrophils # 6.4 (1.3-7.7) k/uL Lymphocytes # 1.8 (1.0-4.8) k/uL Monocytes # 0.7 (0-1.0) k/uL Eosinophils # 0.5 (0-0.7) k/uL Basophils # 0.1 (0-0.2) k/uL Hypochromasia Slight Anisocytosis Slight Sodium 136 L (137-145) mmol/L Potassium 4.1 (3.5-5.1) mmol/L Chloride 103 (98-107) mmol/L Carbon Dioxide 26 (22-30) mmol/L Anion Gap 7 mmol/L BUN 22 H (7-17) mg/dL Creatinine 1.17 H (0.52-1.04) mg/dL Est GFR (CKD-EPI)AfAm 48 (>60 ml/min/1.73 sqM) Est GFR (CKD-EPI)NonAf 41 (>60 ml/min/1.73 sqM) Glucose 124 H (74-99) mg/dL Plasma Lactic Acid Romeo 0.7 (0.7-2.0) mmol/L Calcium 8.3 L (8.4-10.2) mg/dL Total Bilirubin 0.2 (0.2-1.3) mg/dL AST 22 (14-36) U/L ALT 13 (4-34) U/L Alkaline Phosphatase 84 (38-126) U/L Total Protein 6.2 L (6.3-8.2) g/dL Albumin 2.9 L (3.5-5.0) g/dL Lipase 53 (23-300) U/L Urine Color Urine Appearance (Clear) Urine pH (5.0-8.0) Ur Specific Mccoy (1.001-1.035) Urine Protein (Negative) Urine Glucose (UA) (Negative) Urine Ketones (Negative) Urine Blood (Negative) Urine Nitrite (Negative) Urine Bilirubin (Negative) Urine Urobilinogen (<2.0) mg/dL Ur Leukocyte Esterase (Negative) Urine RBC (0-5) /hpf Urine WBC (0-5) /hpf Urine Bacteria (None) /hpf Hyaline Casts (0-2) /lpf Urine Mucus (None) /hpf 07/31/22 Range/Units 01:25 WBC (3.8-10.6) k/uL RBC (3.80-5.40) m/uL Hgb (11.4-16.0) gm/dL Hct (34.0-46.0) % MCV (80.0-100.0) fL MCH (25.0-35.0) pg MCHC (31.0-37.0) g/dL RDW (11.5-15.5) % Plt Count (150-450) k/uL MPV Neutrophils % % Lymphocytes % % Monocytes % % Eosinophils % % Basophils % % Neutrophils # (1.3-7.7) k/uL Lymphocytes # (1.0-4.8) k/uL Monocytes # (0-1.0) k/uL Eosinophils # (0-0.7) k/uL Basophils # (0-0.2) k/uL Hypochromasia Anisocytosis Sodium (137-145) mmol/L Potassium (3.5-5.1) mmol/L Chloride (98-107) mmol/L Carbon Dioxide (22-30) mmol/L Anion Gap mmol/L BUN (7-17) mg/dL Creatinine (0.52-1.04) mg/dL Est GFR (CKD-EPI)AfAm (>60 ml/min/1.73 sqM) Est GFR (CKD-EPI)NonAf (>60 ml/min/1.73 sqM) Glucose (74-99) mg/dL Plasma Lactic Acid Romeo (0.7-2.0) mmol/L Calcium (8.4-10.2) mg/dL Total Bilirubin (0.2-1.3) mg/dL AST (14-36) U/L ALT (4-34) U/L Alkaline Phosphatase (38-126) U/L Total Protein (6.3-8.2) g/dL Albumin (3.5-5.0) g/dL Lipase (23-300) U/L Urine Color Yellow Urine Appearance Clear (Clear) Urine pH 6.0 (5.0-8.0) Ur Specific Mccoy 1.035 (1.001-1.035) Urine Protein 2+ H (Negative) Urine Glucose (UA) Negative (Negative) Urine Ketones Negative (Negative) Urine Blood Negative (Negative) Urine Nitrite Negative (Negative) Urine Bilirubin Negative (Negative) Urine Urobilinogen <2.0 (<2.0) mg/dL Ur Leukocyte Esterase Negative (Negative) Urine RBC 2 (0-5) /hpf Urine WBC 2 (0-5) /hpf Urine Bacteria Rare H (None) /hpf Hyaline Casts 15 H (0-2) /lpf Urine Mucus Rare H (None) /hpf Disposition Clinical Impression: Constipation, Abdominal pain Disposition: HOME SELF-CARE Condition: Stable Instructions (If sedation given, give patient instructions): Constipation (ED) Additional Instructions: Please return to the Emergency Department if symptoms worsen or any other concerns. Is patient prescribed a controlled substance at d/c from ED?: No Referrals: Uri Chaudhary MD [Primary Care Provider] - 1-2 days Time of Disposition: 01:56
[2022-07-30 23:20] LABS: Anisocytosis Slight; Basophils # (A) 0.1 k/uL (0-0.2); Basophils % (A) 1 %; Eosinophils # (A) 0.5 k/uL (0-0.7); Eosinophils % (A) 5 %; HCT 29.1 % (34.0-46.0); Hypochromasia Slight; Lymphocytes # (A) 1.8 k/uL (1.0-4.8); Lymphocytes % (A) 19 %; MCH 27.8 pg (25.0-35.0); MCHC 30.9 g/dL (31.0-37.0); MCV 89.7 fL (80.0-100.0); Mean Platelet Volume 7.2; Monocytes # (A) 0.7 k/uL (0-1.0); Monocytes % (A) 7 %; Neutrophils # (A) 6.4 k/uL (1.3-7.7); Neutrophils % (A) 67 %; Platelet Count 341 k/uL (150-450); RBC 3.24 m/uL (3.80-5.40); RDW 16.3 % (11.5-15.5); WBC 9.6 k/uL (3.8-10.6)
[2022-07-30 23:28] LABS: Albumin 2.9 g/dL (3.5-5.0); Calcium 8.3 mg/dL (8.4-10.2); Potassium 4.1 mmol/L (3.5-5.1); Total Bilirubin 0.2 mg/dL (0.2-1.3); Total Protein 6.2 g/dL (6.3-8.2)
--- NOTE | 2022-07-31 00:06 | CT ---
EXAM: CT Abdomen and Pelvis With Intravenous Contrast CLINICAL HISTORY: ITS.REASON CT Reason: LLQ abdominal pain TECHNIQUE: Axial computed tomography images of the abdomen and pelvis with intravenous contrast. CTDI is 12.5 mGy and DLP is 613.9 mGy-cm. This CT exam was performed using one or more of the following dose reduction techniques: automated exposure control, adjustment of the mA and/or kV according to patient size, and/or use of iterative reconstruction technique. COMPARISON: No relevant prior studies available. FINDINGS: Lung bases: Patchy airspace opacities in the lower lung bang, preferentially involving the RIGHT middle lobe, correlate for infiltrate/pneumonia. ABDOMEN: Liver: Unremarkable. No mass. Gallbladder and bile ducts: Status post cholecystectomy with intrahepatic and extrahepatic biliary ductal dilation. Pancreas: Unremarkable. No mass. No ductal dilation. Spleen: Unremarkable. No splenomegaly. Adrenals: Unremarkable. No mass. Kidneys and ureters: No hydronephrosis or delayed nephrogram. Decompressed urinary bladder. Stomach and bowel: Diverticulosis, without acute diverticulitis. No small bowel obstruction. No free intraperitoneal air. Fecal retention, correlate for constipation. PELVIS: Appendix: Normal appendix. Bladder: Unremarkable. No mass. Reproductive: Hysterectomy. ABDOMEN and PELVIS: Intraperitoneal space: Unremarkable. No free air. No significant fluid collection. Bones/joints: Degenerative changes of the spine. No acute fracture. No dislocation. Soft tissues: Unremarkable. Vasculature: Atherosclerotic changes of the aorta. No abdominal aortic aneurysm. Lymph nodes: Unremarkable. No enlarged lymph nodes. IMPRESSION: 1. Normal appendix. 2. Patchy airspace opacities in the lower lung bang, preferentially involving the RIGHT middle lobe, correlate for infiltrate/pneumonia. 3. Diverticulosis, without acute diverticulitis. No small bowel obstruction. No free intraperitoneal air. Fecal retention, correlate for constipation. 4. Status post cholecystectomy with intrahepatic and extrahepatic biliary ductal dilation. 5. Hysterectomy.
[2022-07-31] MEDS ORDERED: SODIUM CHLORIDE 0.9% 500 ML 500 ML IV ONE (00:52)
[2022-07-31] MEDS ORDERED: ACETAMINOPHEN TAB 500 MG TAB PO STA (01:29)
[2022-07-31 01:50] LABS: Appearance,Urine Clear (Clear); Bacteria,Urine Rare /hpf; Bilirubin,Urine Negative (Negative); Blood,Urine Negative (Negative); Color,Urine Yellow; Glucose,Urine (UA) Negative (Negative); Hyaline Casts,Urine 15 /lpf (0-2); Ketones,Urine Negative (Negative); Leukocyte Esterase,Urine Negative (Negative); Mucus,Urine Rare /hpf; Nitrite,Urine Negative (Negative); Protein,Urine 2+ (Negative); RBC,Urine 2 /hpf (0-5); Specific Gravity,Urine 1.035 (1.001-1.035); Urobilinogen,Urine <2.0 mg/dL (<2.0); WBC,Urine 2 /hpf (0-5)
[2022-07-31 02:06] VITALS: BP 168/71; PULSE 70
== END 2022-07-31 02:18 | disposition home or self-care (01) ==
LOC: EC 22:15
DX: K59.00 Constipation, unspecified (principal); R10.32 Left lower quadrant pain; E78.5 Hyperlipidemia, unspecified; I10 Essential (primary) hypertension; I25.2 Old myocardial infarction; Z86.73 Personal history of transient ischemic attack (TIA), and cerebral infarction without residual deficits; F41.9 Anxiety disorder, unspecified; Z87.891 Personal history of nicotine dependence; Z88.5 Allergy status to narcotic agent; Z88.6 Allergy status to analgesic agent; Z88.8 Allergy status to other drugs, medicaments and biological substances; Z79.82 Long term (current) use of aspirin; Z79.899 Other long term (current) drug therapy
CPT/HCPCS: 36415; 80053; 83605; 83690; 85025; 81001; 74177; 99284; Q9967

== ENCOUNTER 2022-08-19 21:01 | Observation (INO) | payer MEDICARE ==
--- NOTE | 2022-08-19 22:26 | XR ---
EXAM: XR Chest, 2 Views CLINICAL HISTORY: ITS.REASON XR Reason: Weakness TECHNIQUE: Frontal and lateral views of the chest. COMPARISON: Chest CT 05/19/2022 FINDINGS: Lungs: Patchy airspace opacities throughout the lungs bilaterally similar to the prior CT. Pleural space: No pleural effusion. No pneumothorax. Heart: Unremarkable. No cardiomegaly. Bones/joints: Unremarkable. No fracture or malalignment. IMPRESSION: Patchy airspace opacities throughout the lungs bilaterally similar to the prior CT.
--- NOTE | 2022-08-19 22:30 | XR ---
EXAM: XR Abdomen, 1 View CLINICAL HISTORY: ITS.REASON XR Reason: constipation TECHNIQUE: Frontal supine view of the abdomen/pelvis. COMPARISON: No relevant prior studies available. FINDINGS: Gastrointestinal tract: Nonobstructed bowel gas pattern. Bones/joints: Advanced degenerative changes in the lumbar spine. Vasculature: Atherosclerotic calcifications. IMPRESSION: No acute findings.
--- NOTE | 2022-08-19 23:17 | CT ---
EXAM: CT Head Without Intravenous Contrast CLINICAL HISTORY: ITS.REASON CT Reason: confusion TECHNIQUE: Axial computed tomography images of the head/brain without intravenous contrast. CTDI is is 49.1 mGy and DLP is 1125 mGy-cm. This CT exam was performed using one or more of the following dose reduction techniques: automated exposure control, adjustment of the mA and/or kV according to patient size, and/or use of iterative reconstruction technique. COMPARISON: Head CT 08/07/2020 FINDINGS: Brain: No hemorrhage, extra-axial fluid collection, mass effect, or edema. Chronic microvascular ischemic changes. Ventricles: Unremarkable. Bones/joints: Unremarkable. No fracture. Soft tissues: Unremarkable. Sinuses: No acute sinusitis. Mastoid air cells: Unremarkable as visualized. Orbits: Chronic changes in the right globe. IMPRESSION: 1. No acute intracranial abnormality.
--- NOTE | 2022-08-19 23:23 | ED ---
Weakness HPI - General Chief complaint: Weakness Stated complaint: Nausea, Not eating, Abd pain Time Seen by Provider: 08/19/22 21:10 Source: family Mode of arrival: wheelchair Limitations: altered mental status - History of Present Illness Initial comments: 89-year-old female presents to the emergency room for weakness. Daughter provides history as she does care for the patient. States that she has had increased weakness and confusion. She is not eating. Reports to a chronic cough however it has increased. She denies any falls. No head trauma. Patient denies chest pain. Does admit to chronic shortness of breath. No abdominal pain. Daughter does report to low-grade fevers. No other alleviating, precipitating or modifying factors - Related Data Home Medications Medication Instructions Recorded Confirmed Carvedilol 25 mg PO BID 12/18/13 08/20/22 Ezetimibe [Zetia] 10 mg PO HS 12/26/18 08/20/22 Simvastatin [Zocor] 20 mg PO HS 12/26/18 08/20/22 cloNIDine HCL [Catapres] 0.3 mg PO BID 12/26/18 08/20/22 Mirabegron [Myrbetriq] 50 mg PO DAILY 08/07/20 08/20/22 traZODone HCL [Desyrel] 50 mg PO HS PRN 08/21/21 08/20/22 Furosemide [Lasix] 20 mg PO DAILY 10/18/21 08/20/22 Albuterol Inhaler [Ventolin Hfa 2 puff INHALATION RT-Q6H PRN 03/01/22 08/20/22 Inhaler] Nitroglycerin Sl Tabs [Nitrostat] 0.4 mg SUBLINGUAL Q5M PRN 03/01/22 08/20/22 amLODIPine [Norvasc] 10 mg PO DAILY 03/01/22 08/20/22 Docusate [Colace] 100 mg PO BID 05/13/22 08/20/22 LORazepam [Ativan] 1 mg PO TID PRN 05/13/22 08/20/22 Multivit/Folic Acid/Vit K1 1 tab PO DAILY 05/13/22 08/20/22 [One-A-Day Women's 50 Plus Tab] Valsartan [Diovan] 160 mg PO HS 05/13/22 08/20/22 traMADol HCl [Ultram] 50 mg PO Q6HR PRN 08/20/22 08/20/22 Previous Rx's Medication Instructions Recorded Potassium Chloride ER [K-Dur 20] 20 meq PO DAILY 30 Days #30 tab 08/16/21 Allergies Allergy/AdvReac Type Severity Reaction Status Date / Time oxycodone [From Percocet] Allergy Unknown Verified 08/20/22 07:05 codeine AdvReac Nausea & Verified 08/20/22 07:05 Vomiting meperidine HCl [From Demerol] AdvReac Nausea & Verified 08/20/22 07:05 Vomiting morphine AdvReac Nausea & Verified 08/20/22 07:05 Vomiting Review of Systems ROS Statement: Those systems with pertinent positive or pertinent negative responses have been documented in the HPI. ROS Other: All systems not noted in ROS Statement are negative. Past Medical History Past Medical History: Chest Pain / Angina, CVA/TIA, GERD/Reflux, Hyperlipidemia, Hypertension, Myocardial Infarction ([place]), Pneumonia, Syncope Additional Past Medical History / Comment(s): Past syncopal episodes, TIAs, UTIs, DJD spin, chronic back pain, arthritis hips and back, diverticular disease.urinary incontinence- wears briefs Last Myocardial Infarction Date:: 11/16/2010 History of Any Multi-Drug Resistant Organisms: None Reported Past Surgical History: Adenoidectomy, Appendectomy, Back Surgery, Cholecystectomy, Heart Catheterization, Hysterectomy, Tonsillectomy Additional Past Surgical History / Comment(s): cardiac caths in 2010 and 2013, back fusion/discectomy, colonoscopy, bilateral cataract removal with lens implants, Past Anesthesia/Blood Transfusion Reactions: Postoperative Nausea & Vomiting (PONV) Past Psychological History: Anxiety Smoking Status: Former smoker Past Alcohol Use History: None Reported Past Drug Use History: None Reported - Past Family History Father Additional Family Medical History / Comment(s): Father at the age of 57yrs with "heart problems". Mother Additional Family Medical History / Comment(s): Mother had an enlarged heart. She at the age of 79yrs. General Exam Limitations: altered mental status General appearance: alert, in no apparent distress Head exam: Present: atraumatic, normocephalic, normal inspection Eye exam: Present: normal appearance, PERRL, EOMI. Absent: scleral icterus, conjunctival injection, periorbital swelling ENT exam: Present: normal exam, mucous membranes moist Neck exam: Present: normal inspection. Absent: tenderness, meningismus, lymphadenopathy Respiratory exam: Present: other (Course breath sounds bilaterally). Absent: respiratory distress, wheezes, rales, rhonchi, stridor Cardiovascular Exam: Present: regular rate, normal rhythm, normal heart sounds. Absent: systolic murmur, diastolic murmur, rubs, gallop, clicks GI/Abdominal exam: Present: soft, normal bowel sounds. Absent: distended, tenderness, guarding, rebound, rigid Extremities exam: Present: normal inspection, full ROM, normal capillary refill. Absent: tenderness, pedal edema, joint swelling, calf tenderness Back exam: Present: normal inspection Neurological exam: Present: alert, CN II-XII intact Psychiatric exam: Present: normal affect, normal mood Skin exam: Present: warm, dry, intact, normal color. Absent: rash Course Vital Signs 08/19/22 08/20/22 21:05 00:43 Temperature 98.1 F 98 F Pulse Rate 77 74 Respiratory 22 18 Rate Blood Pressure 136/80 177/75 O2 Sat by Pulse 89 L 98 Oximetry Medical Decision Making - Medical Decision Making Was pt. sent in by a medical professional or institution (, PA, [employer]EDGE [employer]ER, urgent care, hospital, or [facility]...) When possible be specific @ -No Did you speak to anyone other than the patient for history (EMS, parent, family, police, friend...)? What history was obtained from this source @ -Spoke with the patient's daughter Did you review nursing and triage notes (agree or disagree)? Why? @ -I reviewed and agree with nursing and triage notes Were old charts reviewed (outside hosp., previous admission, EMS record, old EKG, old radiological studies, urgent care reports/EKG's, [facility] records)? Report findings @ -Last discharge summary was reviewed as the patient has been hospitalized several times for same complaint Differential Diagnosis (chest pain, altered mental status, abdominal pain women, abdominal pain men, vaginal bleeding, weakness, fever, dyspnea, syncope, headache, dizziness, GI bleed, back pain, seizure, CVA, palpatations, mental health, musculoskeletal)? @ -Differential Weakness: Hypoglycemia, shock, sepsis, hyponatremia, anemia, infection, [place], ETOH, adverse medicine reaction, overdose, stroke, this is not meant to be an all-inclusive list. EKG interpreted by me (3pts min.). @ -EKG interpreted by me demonstrates sinus rhythm with rate of 73. DC interval 178. QRS 81. QTC 389. PT wave V3 through V5. No acute ST segment elevations or depressions X-rays interpreted by me (1pt min.). @ -Yes, Chest x-ray demonstrates patchy airspace opacities CT interpreted by me (1pt min.). @ -Yes, CT of the brain demonstrates no acute intracranial process U/S interpreted by me (1pt. min.). @ -None done What testing was considered but not performed or refused? (CT, X-rays, U/S, labs)? Why? @ -None What meds were considered but not given or refused? Why? @ -None Did you discuss the management of the patient with other professionals (professionals i.e. , PA, DREDGE [employer]ER, lab, RT, psych nurse, social science research assistant, industrial relations manager, teacher, tactical intelligence officer, welfare case worker)? Give summary @ -I spoke with Josemanuel from [facility] who agreed to admit the patient Was smoking cessation discussed for >3mins.? @ -No Was critical care preformed (if so, how long)? @ -No Were there social determinants of health that impacted care today? How? (Homelessness, low income, unemployed, alcoholism, drug addiction, transportation, low edu. Level, literacy, decrease access to med. care, half-way, rehab)? @ -No Was there de-escalation of care discussed even if they declined (Discuss DNR or withdrawal of care, Hospice)? DNR status @ -No What co-morbidities impacted this encounter? (DM, HTN, Smoking, COPD, CAD, Cancer, CVA, ARF, Chemo, Hep., AIDS, mental health diagnosis, sleep apnea, morbid obesity)? @ -Dementia, pulmonary fibrosis Was patient admitted / discharged? Hospital course, mention meds given and route, prescriptions, significant lab abnormalities, going to OR and other pertinent info. @ -Upon arrival patient is placed into room 9. A thorough history and physical exam was performed. Laboratory studies were conducted and reviewed. Chest x- ray demonstrates patchy airspace opacities to the lungs bilaterally which is some her to her last imaging. I did provide her with one dose of antibiotics. Awaiting urinalysis at this time. Will admit patient with PT and OT. Spoke with josemanuel from [facility] agreed to admit the patient Undiagnosed new problem with uncertain prognosis? @ -No Drug Therapy requiring intensive monitoring for toxicity (Heparin, Nitro, Insulin, Cardizem)? @ -No Were any procedures done? @ -No Diagnosis/symptom? @ -Acute on chronic cough, acute and chronic encephalopathy, pulmonary fibrosis Acute, or Chronic, or Acute on Chronic? @ -Acute on chronic Uncomplicated (without systemic symptoms) or Complicated (systemic symptoms)? @ -Complicated Side effects of treatment? @ -No Exacerbation, Progression, or Severe Exacerbation? @ -No Poses a threat to life or bodily function? How? (Chest pain, [place], [place], pneumonia, PE, COPD, DKA, ARF, appy, cholecystitis, CVA, Diverticulitis, Homicidal, Suicidal, threat to staff... and all critical care pts) @ -No - Lab Data Result diagrams: 08/22/22 07:18 08/21/22 05:30 Lab Results 08/19/22 08/19/22 08/19/22 Range/Units 22:04 23:19 23:19 WBC 10.0 (3.8-10.6) k/uL RBC 3.02 L (3.80-5.40) m/uL Hgb 8.4 L (11.4-16.0) gm/dL Hct 26.5 L (34.0-46.0) % MCV 87.7 (80.0-100.0) fL MCH 27.8 (25.0-35.0) pg MCHC 31.7 (31.0-37.0) g/dL RDW 16.1 H (11.5-15.5) % Plt Count 379 (150-450) k/uL MPV 7.9 Neutrophils % 67 % Lymphocytes % 20 % Monocytes % 7 % Eosinophils % 4 % Basophils % 0 % Neutrophils # 6.7 (1.3-7.7) k/uL Lymphocytes # 2.0 (1.0-4.8) k/uL Monocytes # 0.7 (0-1.0) k/uL Eosinophils # 0.4 (0-0.7) k/uL Basophils # 0.0 (0-0.2) k/uL Anisocytosis Slight PT 10.4 (9.0-12.0) sec INR 1.0 (<1.2) APTT 19.9 L (22.0-30.0) sec Sodium (137-145) mmol/L Potassium (3.5-5.1) mmol/L Chloride (98-107) mmol/L Carbon Dioxide (22-30) mmol/L Anion Gap mmol/L BUN (7-17) mg/dL Creatinine (0.52-1.04) mg/dL Est GFR (CKD-EPI)AfAm (>60 ml/min/1.73 sqM) Est GFR (CKD-EPI)NonAf (>60 ml/min/1.73 sqM) Glucose (74-99) mg/dL Plasma Lactic Acid Romeo (0.7-2.0) mmol/L Calcium (8.4-10.2) mg/dL Magnesium (1.6-2.3) mg/dL Total Bilirubin (0.2-1.3) mg/dL AST (14-36) U/L ALT (4-34) U/L Alkaline Phosphatase (38-126) U/L Troponin I (0.000-0.034) ng/mL NT-Pro-B Natriuret Pep pg/mL Total Protein (6.3-8.2) g/dL Albumin (3.5-5.0) g/dL Coronavirus (PCR) Not Detected (Not Detectd) 08/19/22 08/19/22 08/19/22 Range/Units 23:19 23:19 23:19 WBC (3.8-10.6) k/uL RBC (3.80-5.40) m/uL Hgb (11.4-16.0) gm/dL Hct (34.0-46.0) % MCV (80.0-100.0) fL MCH (25.0-35.0) pg MCHC (31.0-37.0) g/dL RDW (11.5-15.5) % Plt Count (150-450) k/uL MPV Neutrophils % % Lymphocytes % % Monocytes % % Eosinophils % % Basophils % % Neutrophils # (1.3-7.7) k/uL Lymphocytes # (1.0-4.8) k/uL Monocytes # (0-1.0) k/uL Eosinophils # (0-0.7) k/uL Basophils # (0-0.2) k/uL Anisocytosis PT (9.0-12.0) sec INR (<1.2) APTT (22.0-30.0) sec Sodium 132 L (137-145) mmol/L Potassium 5.0 (3.5-5.1) mmol/L Chloride 98 (98-107) mmol/L Carbon Dioxide 28 (22-30) mmol/L Anion Gap 6 mmol/L BUN 27 H (7-17) mg/dL Creatinine 1.54 H (0.52-1.04) mg/dL Est GFR (CKD-EPI)AfAm 34 (>60 ml/min/1.73 sqM) Est GFR (CKD-EPI)NonAf 30 (>60 ml/min/1.73 sqM) Glucose 111 H (74-99) mg/dL Plasma Lactic Acid Romeo 0.8 (0.7-2.0) mmol/L Calcium 8.8 (8.4-10.2) mg/dL Magnesium 1.9 (1.6-2.3) mg/dL Total Bilirubin 0.3 (0.2-1.3) mg/dL AST 23 (14-36) U/L ALT 13 (4-34) U/L Alkaline Phosphatase 98 (38-126) U/L Troponin I <0.012 (0.000-0.034) ng/mL NT-Pro-B Natriuret Pep pg/mL Total Protein 6.1 L (6.3-8.2) g/dL Albumin 2.9 L (3.5-5.0) g/dL Coronavirus (PCR) (Not Detectd) 08/19/22 Range/Units 23:19 WBC (3.8-10.6) k/uL RBC (3.80-5.40) m/uL Hgb (11.4-16.0) gm/dL Hct (34.0-46.0) % MCV (80.0-100.0) fL MCH (25.0-35.0) pg MCHC (31.0-37.0) g/dL RDW (11.5-15.5) % Plt Count (150-450) k/uL MPV Neutrophils % % Lymphocytes % % Monocytes % % Eosinophils % % Basophils % % Neutrophils # (1.3-7.7) k/uL Lymphocytes # (1.0-4.8) k/uL Monocytes # (0-1.0) k/uL Eosinophils # (0-0.7) k/uL Basophils # (0-0.2) k/uL Anisocytosis PT (9.0-12.0) sec INR (<1.2) APTT (22.0-30.0) sec Sodium (137-145) mmol/L Potassium (3.5-5.1) mmol/L Chloride (98-107) mmol/L Carbon Dioxide (22-30) mmol/L Anion Gap mmol/L BUN (7-17) mg/dL Creatinine (0.52-1.04) mg/dL Est GFR (CKD-EPI)AfAm (>60 ml/min/1.73 sqM) Est GFR (CKD-EPI)NonAf (>60 ml/min/1.73 sqM) Glucose (74-99) mg/dL Plasma Lactic Acid Romeo (0.7-2.0) mmol/L Calcium (8.4-10.2) mg/dL Magnesium (1.6-2.3) mg/dL Total Bilirubin (0.2-1.3) mg/dL AST (14-36) U/L ALT (4-34) U/L Alkaline Phosphatase (38-126) U/L Troponin I (0.000-0.034) ng/mL NT-Pro-B Natriuret Pep 472 pg/mL Total Protein (6.3-8.2) g/dL Albumin (3.5-5.0) g/dL Coronavirus (PCR) (Not Detectd) Disposition Clinical Impression: Weakness, Encephalopathy acute, Cough Disposition: ADMITTED IP TO THIS [facility] Condition: Stable Is patient prescribed a controlled substance at d/c from ED?: No Time of Disposition: 00:11 Decision to Admit Reason: Admit from EC Decision Date: 08/20/22 Decision Time: 00:11
[2022-08-19 23:35] LABS: Anisocytosis Slight; Basophils % (A) 0 %; Eosinophils # (A) 0.4 k/uL (0-0.7); Eosinophils % (A) 4 %; HCT 26.5 % (34.0-46.0); HGB 8.4 gm/dL (11.4-16.0); Lymphocytes % (A) 20 %; MCH 27.8 pg (25.0-35.0); MCHC 31.7 g/dL (31.0-37.0); MCV 87.7 fL (80.0-100.0); Mean Platelet Volume 7.9; Monocytes # (A) 0.7 k/uL (0-1.0); Monocytes % (A) 7 %; Neutrophils # (A) 6.7 k/uL (1.3-7.7); Neutrophils % (A) 67 %; Platelet Count 379 k/uL (150-450); RBC 3.02 m/uL (3.80-5.40); RDW 16.1 % (11.5-15.5)
[2022-08-19 23:57] LABS: Prothrombin Time 10.4 sec (9.0-12.0)
[2022-08-19 23:59] LABS: Albumin 2.9 g/dL (3.5-5.0); Calcium 8.8 mg/dL (8.4-10.2); Magnesium 1.9 mg/dL (1.6-2.3); Total Bilirubin 0.3 mg/dL (0.2-1.3); Total Protein 6.1 g/dL (6.3-8.2)
[2022-08-20 00:01] LABS: Partial Thromboplastin Time 19.9 sec (22.0-30.0)
[2022-08-20] MEDS ORDERED: AZITHROMYCIN 500 MG in SODIUM CHLORIDE 0.9% 250 ML IVPB STA (00:09)
[2022-08-20] MEDS ORDERED: cefTRIAXone IN SWFI 1,000 MG/10 ML SYRINGE IVP STA (00:09)
[2022-08-20] MEDS ORDERED: NALOXONE 0.4 MG/ML 1 ML VIAL IV PRN (00:11)
[2022-08-20] MEDS: SODIUM CHLORIDE 0.9% 1,000 ML IV SCH ×2 (02:53→20:32)
[2022-08-20] MEDS ORDERED: traMADol 50 MG TAB PO PRN (08:40)
[2022-08-20] MEDS ORDERED: LORazepam 1 MG TAB PO PRN (08:40)
[2022-08-20] MEDS ORDERED: NITROGLYCERIN SL TABS 0.4 MG TAB SUBLINGUAL PRN (08:40)
[2022-08-20] MEDS ORDERED: traZODone HCL 50 MG TAB PO PRN (08:40)
[2022-08-20] MEDS ORDERED: ALBUTEROL NEBULIZED 2.5 MG/3 ML INHALATION PRN (08:40)
--- NOTE | 2022-08-20 09:18 | P.HPIM ---
History of Present Illness H&P Date: 08/20/22 Chief Complaint: Weakness This is an 89-year-old female who presented to the emergency room with complaints of weakness. Patient's daughter reports patient has had increased weakness and confusion and was not eating. She also complains of a chronic cough. Daughter also reports patient has had some on and off constipation at home. Patient is seen this morning sitting in chair at bedside. She is alert to person and place. She is tolerating diet. Further medical history as noted below. Review of Systems Constitutional: Denies chills, Denies fever Cardiovascular: Denies chest pain, Denies dyspnea on exertion Respiratory: Reports cough, Denies dyspnea Gastrointestinal: Reports constipation Musculoskeletal: Denies arm numbness/tingling, Denies leg numbness/tingling Neurological: Reports weakness, Denies headaches Psychiatric: Reports confusion Past Medical History Past Medical History: Chest Pain / Angina, CVA/TIA, GERD/Reflux, Hyperlipidemia, Hypertension, Myocardial Infarction (CT), Pneumonia, Syncope Additional Past Medical History / Comment(s): Past syncopal episodes, TIAs, UTIs, DJD spin, chronic back pain, arthritis hips and back, diverticular disease.urinary incontinence- wears briefs Last Myocardial Infarction Date:: 11/16/2010 History of Any Multi-Drug Resistant Organisms: None Reported Past Surgical History: Adenoidectomy, Appendectomy, Back Surgery, Cholecystectomy, Heart Catheterization, Hysterectomy, Tonsillectomy Additional Past Surgical History / Comment(s): cardiac caths in 2010 and 2013, back fusion/discectomy, colonoscopy, bilateral cataract removal with lens implants, Past Anesthesia/Blood Transfusion Reactions: Postoperative Nausea & Vomiting (P ONV) Past Psychological History: Anxiety Smoking Status: Former smoker Past Alcohol Use History: None Reported Past Drug Use History: None Reported - Past Family History Father Additional Family Medical History / Comment(s): Father at the age of 57yrs with "heart problems". Mother Additional Family Medical History / Comment(s): Mother had an enlarged heart. She at the age of 79yrs. Medications and Allergies Home Medications Medication Instructions Recorded Confirmed Type Carvedilol 25 mg PO BID 12/18/08/20/22 History Ezetimibe [Zetia] 10 mg PO HS 12/26/18 08/20/22 History Simvastatin [Zocor] 20 mg PO HS 12/26/18 08/20/22 History cloNIDine HCL [Catapres] 0.3 mg PO BID 12/26/18 08/20/22 History Mirabegron [Myrbetriq] 50 mg PO DAILY 08/07/20 08/20/22 History Potassium Chloride ER [K-Dur 20] 20 meq PO DAILY 30 Days #30 tab 08/16/21 08/20/22 Rx traZODone HCL [Desyrel] 50 mg PO HS PRN 08/21/21 08/20/22 History Furosemide [Lasix] 20 mg PO DAILY 10/18/21 08/20/22 History Albuterol Inhaler [Ventolin Hfa 2 puff INHALATION RT-Q6H PRN 03/01/22 08/20/22 History Inhaler] Nitroglycerin Sl Tabs [Nitrostat] 0.4 mg SUBLINGUAL Q5M PRN 03/01/22 08/20/22 History amLODIPine [Norvasc] 10 mg PO DAILY 03/01/22 08/20/22 History Docusate [Colace] 100 mg PO BID 05/13/22 08/20/22 History LORazepam [Ativan] 1 mg PO TID PRN 05/13/22 08/20/22 History Multivit/Folic Acid/Vit K1 1 tab PO DAILY 05/13/22 08/20/22 History [One-A-Day Women's 50 Plus Tab] Valsartan [Diovan] 160 mg PO HS 05/13/22 08/20/22 History traMADol HCl [Ultram] 50 mg PO Q6HR PRN 08/20/22 08/20/22 History Allergies Allergy/AdvReac Type Severity Reaction Status Date / Time oxycodone [From Percocet] Allergy Unknown Verified 08/20/22 07:05 codeine AdvReac Nausea & Verified 08/20/22 07:05 Vomiting meperidine HCl [From Demerol] AdvReac Nausea & Verified 08/20/22 07:05 Vomiting morphine AdvReac Nausea & Verified 08/20/22 07:05 Vomiting Physical Exam Vitals: Vital Signs Temp Pulse Pulse Resp BP BP Pulse Ox 08/20/22 07:33 97.8 F 71 17 186/68 96 08/20/22 02:44 97.8 F 16 191/75 95 08/20/22 00:43 98 F 74 18 177/75 98 08/19/22 21:05 98.1 F 77 22 136/80 89 L Intake and Output 08/19/22 08/20/22 08/20/22 22:59 06:59 14:59 Output Total 100 Balance -100 Output: Urine 100 Other: Voiding Method Incontinent External Catheter Weight 56.699 kg 56.699 kg - Constitutional General appearance: cooperative, no acute distress - EENT Eyes: PERRLA - Neck Neck: no lymphadenopathy, normal ROM, no rigidity - Respiratory Respiratory: bilateral: rhonchi - Cardiovascular Rhythm: regular Heart sounds: normal: S1, S2 - Gastrointestinal General gastrointestinal: soft, no tenderness - Musculoskeletal Musculoskeletal: generalized weakness - Psychiatric Psychiatric: appropriate affect Results CBC & Chem 7: 08/19/22 23:19 08/19/22 23:19 Labs: Abnormal Lab Results - Last 24 Hours (Table) 08/19/22 08/19/22 08/19/22 Range/Units 23:19 23:19 23:19 RBC 3.02 L (3.80-5.40) m/uL Hgb 8.4 L (11.4-16.0) gm/dL Hct 26.5 L (34.0-46.0) % RDW 16.1 H (11.5-15.5) % APTT 19.9 L (22.0-30.0) sec Sodium 132 L (137-145) mmol/L BUN 27 H (7-17) mg/dL Creatinine 1.54 H (0.52-1.04) mg/dL Glucose 111 H (74-99) mg/dL Total Protein 6.1 L (6.3-8.2) g/dL Albumin 2.9 L (3.5-5.0) g/dL Assessment and Plan (1) Weakness Current Visit: Yes Status: Acute Code(s): R53.1 - WEAKNESS SNOMED Code(s): 73837370 (2) Encephalopathy acute Current Visit: Yes Status: Acute Code(s): G93.40 - ENCEPHALOPATHY, UNSPECIFIED SNOMED Code(s): 37151752 (3) Cough Current Visit: Yes Status: Acute Code(s): R05.9 - COUGH, UNSPECIFIED SNOMED Code(s): 25366365 (4) Confusion Current Visit: Yes Status: Acute Code(s): R41.0 - DISORIENTATION, UNSPECIFIED SNOMED Code(s): 621266908 (5) GERD (gastroesophageal reflux disease) Current Visit: No Status: Acute Code(s): K21.9 - GASTRO-ESOPHAGEAL REFLUX DISEASE WITHOUT ESOPHAGITIS SNOMED Code(s): 234216611 (6) HTN (hypertension) Current Visit: No Status: Acute Code(s): I10 - ESSENTIAL (PRIMARY) HYPERTENSION SNOMED Code(s): 65808576 (7) Hyperlipidemia Current Visit: No Status: Acute Code(s): E78.5 - HYPERLIPIDEMIA, UNSPECIFIED SNOMED Code(s): 61417938 Plan: Home medications reconciled. Check UA. Consult to neurology. Patient seen and evaluated by nurse practitioner, physician in agreement with plan
[2022-08-20 10:16] LABS: Appearance,Urine Clear (Clear); Bacteria,Urine Rare /hpf; Bilirubin,Urine Negative (Negative); Blood,Urine Negative (Negative); Color,Urine Light Yellow; Glucose,Urine (UA) Negative (Negative); Ketones,Urine Negative (Negative); Leukocyte Esterase,Urine Negative (Negative); Mucus,Urine Rare /hpf; Nitrite,Urine Negative (Negative); PH, Urine 6.5 (5.0-8.0); Protein,Urine 2+ (Negative); RBC,Urine <1 /hpf (0-5); Specific Gravity,Urine 1.009 (1.001-1.035); Squamous Epithelial Cell,Urine <1 /hpf (0-4); Urobilinogen,Urine <2.0 mg/dL (<2.0); WBC,Urine 2 /hpf (0-5)
[2022-08-20] MEDS: NON FORMULARY DRUG (Mirabegron [Myrbetriq] 50 MG Tab.Er.24h) PO SCH (12:13)
[2022-08-20] MEDS: FUROSEMIDE 20 MG TAB PO SCH (12:22)
[2022-08-20] MEDS: POTASSIUM CHLORIDE ER 20 MEQ TAB.ER PO SCH (12:22)
[2022-08-20] MEDS: cloNIDine HCL 0.1 MG TAB PO SCH ×2 (12:22→20:30)
[2022-08-20] MEDS: amLODIPine 10 MG TAB PO SCH (12:22)
[2022-08-20] MEDS: DOCUSATE 100 MG CAP PO SCH ×2 (12:23→20:30)
[2022-08-20] MEDS: MULTIVITAMINS, THERA 1 EACH TAB PO SCH (12:23)
[2022-08-20] MEDS: carvediloL 12.5 MG TAB PO SCH ×2 (12:23→18:01)
[2022-08-20] MEDS ORDERED: ONDANSETRON 4 MG/2 ML VIAL IVP PRN (14:11)
[2022-08-20] MEDS: ATORVASTATIN 10 MG TAB PO SCH (20:30)
[2022-08-20] MEDS: EZETIMIBE 10 MG TAB PO SCH (20:30)
[2022-08-20] MEDS: VALSARTAN 160 MG TAB PO SCH (20:30)
[2022-08-21] MEDS: carvediloL 12.5 MG TAB PO SCH ×2 (06:31→16:57)
--- NOTE | 2022-08-21 07:55 | P.CNNES ---
History of Present Illness Consult date: 08/20/22 Requesting physician: Uri Chaudhary Reason for Consult: Altered mental status History of Present Illness: Patient is a 89-year-old female came to the hospital yesterday at 9:01 PM for altered mental status and hallucinations. Patient's family was also present, who provided with a history. Patient recently suffered from UTI and was treated with antibiotics and sent home. In the last 10 days, patient has become slightl y more confused, seeing things which are not there. The symptoms got worse in the last 3 days. Just about 30 minutes ago, patient believed that she was in a courthouse and was waiting for the district manager primary care sales. Patient was seeing things, or saying things that are not real. Patient does have occasional memory loss for last 1 year, mainly for short-term. Patient sometimes is very clear, as does snore she was able to recall that it was her brother's birthday who turned 86. Family has noted fluctuating mental status, sometimes she is more mentally clear and sometimes she is confused. Family brought the patient to the hospital suspecting a UTI. Patient at present complaining of abdominal pain, states that she cannot take it "no more". She pointing pain to the left side of the [place] region. She will wake up at night with the pain. Patient's family mentions that patient has suffered from pneumonia off and on for years. One time she suffered from double pneumonia. Patient denies any stroke symptoms like slurred speech, facial droop, focal weakness, numbness. Patient does admit to having headache "off and on", but not bad. It was suspected her confusion could be related to tramadol, which has been discontinued. Vital signs arrival blood pressure 136/80, pulse rate 77 temperature 98.1. Repeat blood pressure 177/75, then went up to 191/75. Blood test shows normal WBC, hemoglobin 8.4, platelets 379. PT/PTT normal, sodium 132 potassium 5.0, BUN 27, creatinine 1.[address] head showed no acute intracranial abnormality. I personally reviewed CT head, agree with the findings. Chest x-ray showed patchy air space opacities throughout the lungs bilaterally similar to the prior CT. EKG shows sinus rhythm. KUB with no acute findings. Patient's B12 was > 4000 on 08/13/2020 and TSH normal. Hemoglobin A1c 6.3. Patient has been seen by myself previously on 08/13/2020, for recurrent syncopal spells, history of TIA. It was felt that recurrent syncopal spells were likely due to acute pneumonia, orthostasis and probable near syncopal spells. The symptoms resolved with treatment of above conditions. Patient has history of TIA 20 years ago, stable on aspirin 81 mg twice a day. Patient has not had any further syncopal spells since then. Review of Systems All systems: negative Constitutional: Denies chills, Denies fever Eyes: denies blurred vision, denies pain Ears: bilateral: decreased hearing, deny: ear discharge, earache Ears, nose, mouth and throat: Reports headache, Denies sore throat, Denies vertigo Cardiovascular: Reports shortness of breath, Denies chest pain Respiratory: Denies excessive sputum, Denies hemoptysis Gastrointestinal: Reports abdominal pain, Reports constipation, Denies diarrhea, Denies vomiting Musculoskeletal: Denies myalgias, Denies neck pain Integumentary: Denies pruritus, Denies rash Neurological: Reports as per HPI Endocrine: Reports fatigue, Denies heat intolerance Past Medical History Past Medical History: Chest Pain / Angina, CVA/TIA, GERD/Reflux, Hyperlipidemia, Hypertension, Myocardial Infarction ([place]), Pneumonia, Syncope Additional Past Medical History / Comment(s): Past syncopal episodes, TIAs, UTIs, DJD spin, chronic back pain, arthritis hips and back, diverticular disease.urinary incontinence- wears briefs Last Myocardial Infarction Date:: 11/16/2010 History of Any Multi-Drug Resistant Organisms: None Reported Past Surgical History: Adenoidectomy, Appendectomy, Back Surgery, Cholecystectomy, Heart Catheterization, Hysterectomy, Tonsillectomy Additional Past Surgical History / Comment(s): cardiac caths in 2010 and 2013, back fusion/discectomy, colonoscopy, bilateral cataract removal with lens implants, Past Anesthesia/Blood Transfusion Reactions: Postoperative Nausea & Vomiting (PONV) Past Psychological History: Anxiety Smoking Status: Former smoker Past Alcohol Use History: None Reported Past Drug Use History: None Reported - Past Family History Father Additional Family Medical History / Comment(s): Father at the age of 57yrs with "heart problems". Mother Additional Family Medical History / Comment(s): Mother had an enlarged heart. She at the age of 79yrs. Medications and Allergies Home Medications Medication Instructions Recorded Confirmed Type Carvedilol 25 mg PO BID 12/18/13 08/20/22 History Ezetimibe [Zetia] 10 mg PO HS 12/26/18 08/20/22 History Simvastatin [Zocor] 20 mg PO HS 12/26/18 08/20/22 History cloNIDine HCL [Catapres] 0.3 mg PO BID 12/26/18 08/20/22 History Mirabegron [Myrbetriq] 50 mg PO DAILY 08/07/20 08/20/22 History Potassium Chloride ER [K-Dur 20] 20 meq PO DAILY 30 Days #30 tab 08/16/21 0 08/20/22 Rx traZODone HCL [Desyrel] 50 mg PO HS PRN 08/21/21 08/20/22 History Furosemide [Lasix] 20 mg PO DAILY 10/18/21 08/20/22 History Albuterol Inhaler [Ventolin Hfa 2 puff INHALATION RT-Q6H PRN 03/01/22 08/20/22 History Inhaler] Nitroglycerin Sl Tabs [Nitrostat] 0.4 mg SUBLINGUAL Q5M PRN 03/01/22 08/20/22 History amLODIPine [Norvasc] 10 mg PO DAILY 03/01/22 08/20/22 History Docusate [Colace] 100 mg PO BID 05/13/22 08/20/22 History LORazepam [Ativan] 1 mg PO TID PRN 05/13/22 08/20/22 History Multivit/Folic Acid/Vit K1 1 tab PO DAILY 05/13/22 08/20/22 History [One-A-Day Women's 50 Plus Tab] Valsartan [Diovan] 160 mg PO HS 05/13/22 08/20/22 History traMADol HCl [Ultram] 50 mg PO Q6HR PRN 08/20/22 08/20/22 History Allergies Allergy/AdvReac Type Severity Reaction Status Date / Time oxycodone [From Percocet] Allergy Unknown Verified 08/20/22 07:05 codeine AdvReac Nausea & Verified 08/20/22 07:05 Vomiting meperidine HCl [From Demerol] AdvReac Nausea & Verified 08/20/22 07:05 Vomiting morphine AdvReac Nausea & Verified 08/20/22 07:05 Vomiting Physical Examination - Vital Signs Vital Signs: Vital Signs Temp Pulse Pulse Resp BP BP Pulse Ox 08/20/22 07:33 97.8 F 71 17 186/68 96 08/20/22 02:44 97.8 F 16 191/75 95 08/20/22 00:43 98 F 74 18 177/75 98 08/19/22 21:05 98.1 F 77 22 136/80 89 L Intake and Output 08/19/22 08/20/22 08/20/22 22:59 06:59 14:59 Output Total 100 Balance -100 Output: Urine 100 Other: Voiding Method Incontinent External Catheter Weight 56.699 kg 56.699 kg Patient is an elderly female, in no acute distress. Patient is alert awake oriented to time place and person. Patient states it is August and the year is 2022 and that she is in [facility]. Speech and language functions are normal. Attention, concentration and fund of knowledge is adequate. Detail cognitive function testing deferred. On cranial examination, the left pupil pupils is round and reacting to light, visual bang are full on confrontation with no neglect on double simultaneous stimulation, extraocular muscles are intact with no nystagmus. Face is symmetric, tongue protrudes to the midline. Palatal elevation and sensation normal, hearing is moderately decreased and shoulder shrug normal, facial sensation normal. Shoulder shrug normal. On muscle strength testing, there is no pronator drift and the strength is normal in arms and legs distally and proximally. Deep tendon reflexes are symmetric, 2 all over and plantars downgoing. Sensory to touch is equal with no neglect. Cerebellar function showed no ataxia for [id number] testing. No dysdiadochokinesia. Tone and bulk of muscles normal. Gait normal. On general examination, there is no carotid bruit or murmur, S1-S2 audible. Abdomen is soft nontender. Chest is clear. Peripheral pulses are present. No edema. Results - Laboratory Findings CBC and BMP: 08/19/22 23:19 08/19/22 23:19 Abnormal Lab Findings: Abnormal Labs 08/19/22 08/19/22 08/19/22 23:19 23:19 23:19 RBC 3.02 L Hgb 8.4 L Hct 26.5 L RDW 16.1 H APTT 19.9 L Sodium 132 L BUN 27 H Creatinine 1.54 H Glucose 111 H Total Protein 6.1 L Albumin 2.9 L Assessment and Plan Assessment: * Altered (fluctuating) mental status with hallucinations, probable due to delirium. Reasons probably multifactorial as mentioned below * Abnormal CXR, rule out pneumonia * Acute on chronic renal insufficiency * Patient has recently received steroids, therefore may be contributing to delirium. * Anemia * Prediabetes, with A1c 6.3 * History of syncopal spells in the past Plan: * Patient's neurological examination is non-focal. * No other neurological workup indicated * Management of various medical conditions as per IM * Carotid Doppler from 08/12/2020 showed antegrade flow in both vertebral arteries. There is 35% stenosis in both ICAs. * 2-D echo at that time revealed normal LVEF 60-65%, mild aortic valve sclerosis, stenosis and aortic regurgitation. * Neurologically clear. Discussed with patient's daughter as well in detail. * Thank you for the consult.
[2022-08-21] MEDS: NON FORMULARY DRUG (Mirabegron [Myrbetriq] 50 MG Tab.Er.24h) PO SCH (10:20)
[2022-08-21] MEDS: FUROSEMIDE 20 MG TAB PO SCH (10:22)
[2022-08-21] MEDS: MULTIVITAMINS, THERA 1 EACH TAB PO SCH (10:22)
[2022-08-21] MEDS: DOCUSATE 100 MG CAP PO SCH ×2 (10:23→22:13)
[2022-08-21] MEDS: POTASSIUM CHLORIDE ER 20 MEQ TAB.ER PO SCH (10:23)
[2022-08-21] MEDS: amLODIPine 10 MG TAB PO SCH (10:23)
[2022-08-21] MEDS: cloNIDine HCL 0.1 MG TAB PO SCH ×2 (10:23→22:13)
[2022-08-21] MEDS ORDERED: bisacodyL 10 MG SUPP RECTAL STA (10:54)
[2022-08-21] MEDS ORDERED: NA PHOS,M-B/NA PHOS,DI-BA 133 ML ENEMA RECTAL PRN (10:55)
--- NOTE | 2022-08-21 11:57 | P.PN ---
Subjective Principal diagnosis: Delirium with constipation The patient is complaining of significant constipation. We will try laxatives today. Otherwise testing is nominal. She seems to be recovered from her delirium. No fever or chills. Nausea, vomiting or diarrhea. No chest pain per se. 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 Objective - Vital Signs Vital signs: Vital Signs Temp 98.6 F 08/21/22 07:24 Pulse 88 08/21/22 07:24 Resp 17 08/21/22 07:24 BP 205/70 08/21/22 07:24 Pulse Ox 92 L 08/21/22 07:24 FiO2 Intake & Output 08/20/22 08/21/22 08/21/22 18:59 06:59 18:59 Other: Voiding Method Incontinent Bedside Commode Toilet External Catheter # Voids 3 3 # Bowel Movements 1 - Constitutional General appearance: Present: thin - EENT Eyes: Absent: abnormal pupil - Neck Neck: Absent: lymphadenopathy - Respiratory Respiratory: bilateral: diminished - Cardiovascular Rhythm: regular Heart sounds: normal: S1, S2 Abnormal Heart Sounds: Absent: S3 Gallop - Gastrointestinal General gastrointestinal: Present: soft. Absent: tenderness - Labs CBC & Chem 7: 08/19/22 23:19 08/19/22 23:19 Assessment and Plan (1) Confusion Current Visit: Yes Status: Acute Code(s): R41.0 - DISORIENTATION, UNSPECIFIED SNOMED Code(s): 364948868 (2) Cough Current Visit: Yes Status: Acute Code(s): R05.9 - COUGH, UNSPECIFIED SNOMED Code(s): 03295714 (3) Encephalopathy acute Current Visit: Yes Status: Acute Code(s): G93.40 - ENCEPHALOPATHY, UNSPECIFIED SNOMED Code(s): 01988631 (4) Weakness Current Visit: Yes Status: Acute Code(s): R53.1 - WEAKNESS SNOMED Code(s): 90832583 (5) At risk for readmission to hospital Current Visit: No Status: Acute Code(s): Z91.89 - OTH PERSONAL RISK FACTORS, NOT ELSEWHERE CLASSIFIED SNOMED Code(s): 3589430573312 (6) Constipation Current Visit: No Status: Acute Code(s): K59.00 - CONSTIPATION, UNSPECIFIED SNOMED Code(s): 71331061 Plan: Appreciate neurology input. We will go ahead and increase ambulation. New patch laxative. Check CBC and CMP in a.m. Anticipate discharge in a.m.
[2022-08-21 13:58] LABS: Basophils # (A) 0.08 X 10*3/uL (0.00-0.10); Basophils % (A) 0.8 %; Eosinophils # (A) 0.38 X 10*3/uL (0.04-0.35); Eosinophils % (A) 3.6 %; HCT 29.3 % (37.2-46.3); HGB 8.7 g/dL (12.0-15.0); Immature Grans, Automated 0.5 %; Lymphocytes # (A) 1.38 X 10*3/uL (0.90-5.00); Lymphocytes % (A) 13.2 %; MCH 27.3 pg (27.0-32.0); MCHC 29.7 g/dL (32.0-37.0); MCV 91.8 fL (80.0-97.0); Mean Platelet Volume 9.6 fL (9.5-12.2); Monocytes # (A) 0.95 X 10*3/uL (0.20-1.00); Monocytes % (A) 9.1 %; NRBC Per 100 WBC 0 /100 WBCS (0.0-0.0); Neutrophils # (A) 7.59 X 10*3/uL (1.80-7.70); Neutrophils % (A) 72.8 %; Platelet Count 387 X 10*3/uL (140-440); RBC 3.19 X 10*6/uL (4.10-5.20); RDW 16.6 % (11.5-14.5); WBC 10.43 X 10*3/uL (4.50-10.00)
[2022-08-21 14:50] LABS: African American GFR (CKD) 51.5 (60.0-200.0); Anion Gap 12.8 mmol/L (10.00-18.00); BUN/Creat Ratio 13.18 Ratio (12.00-20.00); Blood Urea Nitrogen 14.5 mg/dL (9.0-27.0); Calcium 8.7 mg/dL (8.7-10.3); Carbon Dioxide 28.2 mmol/L (20.0-27.5); Non-African American GFR(CKD) 44.5 (60.0-200.0)
[2022-08-21] MEDS: SODIUM CHLORIDE 0.9% 1,000 ML IV SCH ×2 (17:28→22:13)
--- NOTE | 2022-08-21 18:38 | P.PN ---
Subjective Progress Note Date: 08/21/22 Patient was seen for a follow-up. Patient's daughter was also present today. Patient is sitting comfortably in the recliner. Patient's daughter states that she is still slightly confused, as she forgets her 's name. She wanted to talk to her who has a year ago. She also spoke to her niece and was confused for couple things. Objective - Vital Signs Vital signs: Vital Signs Temp 97.7 F 08/21/22 13:31 Pulse 76 08/21/22 13:31 Resp 17 08/21/22 13:31 BP 163/69 08/21/22 13:31 Pulse Ox 92 L 08/21/22 13:31 FiO2 Intake & Output 08/20/22 08/21/22 08/21/22 18:59 06:59 18:59 Other: Voiding Method Incontinent Bedside Commode Toilet External Catheter # Voids 3 3 # Bowel Movements 1 - Exam Patient knows it is [place] in [place]. She states that she is in a motel. She states it is a [facility]. She states it's is the month of August and the year is 2022. Patient does have positive palmomental reflex and positive visuospatial apraxia. - Labs CBC & Chem 7: 08/21/22 05:30 08/21/22 05:30 Labs: Abnormal Lab Results - Last 24 Hours (Table) 08/21/22 08/21/22 Range/Units 05:30 05:30 WBC 10.43 H (4.50-10.00) X 10*3/uL RBC 3.19 L (4.10-5.20) X 10*6/uL Hgb 8.7 L (12.0-15.0) g/dL Hct 29.3 L (37.2-46.3) % MCHC 29.7 L (32.0-37.0) g/dL RDW 16.6 H (11.5-14.5) % Immature Gran # 0.05 H (0.00-0.04) X 10*3/uL Eosinophils # 0.38 H (0.04-0.35) X 10*3/uL Carbon Dioxide 28.2 H (20.0-27.5) mmol/L Est GFR (CKD-EPI)AfAm 51.5 L (60.0-200.0) Est GFR (CKD-EPI)NonAf 44.5 L (60.0-200.0) Glucose 122 H (70-110) mg/dL Microbiology - Last 24 Hours (Table) 08/19/22 22:55 Blood Culture - Preliminary Blood 08/19/22 23:15 Blood Culture - Preliminary Blood Assessment and Plan Assessment: * Altered (fluctuating) mental status with hallucinations, probable due to delirium. Reasons probably multifactorial as mentioned below. Rule out underlying cognitive impairment * Abnormal CXR, rule out pneumonia * Acute on chronic renal insufficiency * Patient has recently received steroids, therefore may be contributing to delirium. * Anemia * Prediabetes, with A1c 6.3 * History of syncopal spells in the past Plan: * Patient's neurological examination is non-focal. * Patient continues to be slightly confused, mildly delirious. Uncertain if patient has underlying cognitive impairment as well. Consider Seroquel if she continues to be slightly delirious. * Recommend patient follow-up with neurologist as outpatient (after delirium has resolved) to rule out underlying ?cognitive impairment/dementia. * No other neurological workup indicated * Management of various medical conditions as per IM. Patient currently on ceftriaxone. * Carotid Doppler from 08/12/2020 showed antegrade flow in both vertebral arteries. There is 35% stenosis in both ICAs. * 2-D echo at that time revealed normal LVEF 60-65%, mild aortic valve sclerosis, stenosis and aortic regurgitation. * Neurologically clear. Discussed with patient's daughter as well in detail. Dr. Jamari Hoffman resuming neurology service in the morning if any neurological concerns.
[2022-08-21] MEDS: ATORVASTATIN 10 MG TAB PO SCH (22:13)
[2022-08-21] MEDS: VALSARTAN 160 MG TAB PO SCH (22:13)
[2022-08-21] MEDS: EZETIMIBE 10 MG TAB PO SCH (22:13)
[2022-08-22] MEDS: carvediloL 12.5 MG TAB PO SCH (05:35)
[2022-08-22] MEDS: cloNIDine HCL 0.1 MG TAB PO SCH (08:00)
[2022-08-22] MEDS: MULTIVITAMINS, THERA 1 EACH TAB PO SCH (08:01)
[2022-08-22] MEDS: DOCUSATE 100 MG CAP PO SCH (08:01)
[2022-08-22] MEDS: amLODIPine 10 MG TAB PO SCH (08:01)
[2022-08-22] MEDS: POTASSIUM CHLORIDE ER 20 MEQ TAB.ER PO SCH (08:01)
[2022-08-22] MEDS: FUROSEMIDE 20 MG TAB PO SCH (08:01)
[2022-08-22] MEDS: NON FORMULARY DRUG (Mirabegron [Myrbetriq] 50 MG Tab.Er.24h) PO SCH (08:15)
--- NOTE | 2022-08-22 08:46 | P.DS ---
Providers Date of admission: 08/20/22 00:11 Attending physician: Uri Chaudhary Consults: 08/20/22 08:28 Consult Physician Routine Consulting Provider: Axel Thakkar Consult Reason/Comments: altered mental status Do you want consulting provider notified?: Yes Primary care physician: Uri Chaudhary - Discharge Diagnosis(es) (1) Weakness Current Visit: Yes Status: Acute (2) Encephalopathy acute Current Visit: Yes Status: Acute (3) Cough Current Visit: Yes Status: Acute (4) Confusion Current Visit: Yes Status: Acute (5) GERD (gastroesophageal reflux disease) Current Visit: No Status: Acute (6) HTN (hypertension) Current Visit: No Status: Acute (7) Hyperlipidemia Current Visit: No Status: Acute (8) Constipation Current Visit: No Status: Acute Hospital Course: This is an 89-year-old female who is admitted after complaints of weakness, confusion and not eating at home. Patient also had constipation on admission. She was able to have a bowel movement and is feeling better. Neurology was consulted and they report no further workup is needed and can be discharged from their standpoint. Patient is back to baseline and will be discharge home. Patient seen and evaluated by nurse practitioner, physician in agreement with plan Patient Condition at Discharge: Stable Plan - Discharge Summary New Discharge Prescriptions: Continue Carvedilol 25 mg PO BID Simvastatin [Zocor] 20 mg PO HS cloNIDine HCL [Catapres] 0.3 mg PO BID Ezetimibe [Zetia] 10 mg PO HS Mirabegron [Myrbetriq] 50 mg PO DAILY traZODone HCL [Desyrel] 50 mg PO HS PRN PRN Reason: Insomnia Furosemide [Lasix] 20 mg PO DAILY LORazepam [Ativan] 1 mg PO TID PRN PRN Reason: Anxiety Potassium Chloride ER [K-Dur 20] 20 meq PO DAILY 30 Days #30 tab Nitroglycerin Sl Tabs [Nitrostat] 0.4 mg SUBLINGUAL Q5M PRN PRN Reason: Chest Pain Albuterol Inhaler [Ventolin Hfa Inhaler] 2 puff INHALATION RT-Q6H PRN PRN Reason: Shortness Of Breath amLODIPine [Norvasc] 10 mg PO DAILY Valsartan [Diovan] 160 mg PO HS Docusate [Colace] 100 mg PO BID Multivit/Folic Acid/Vit K1 [One-A-Day Women's 50 Plus Tab] 1 tab PO DAILY traMADol HCl [Ultram] 50 mg PO Q6HR PRN PRN Reason: Pain Discharge Medication List Carvedilol 25 mg PO BID 12/18/13 [History] Ezetimibe [Zetia] 10 mg PO HS 12/26/18 [History] Simvastatin [Zocor] 20 mg PO HS 12/26/18 [History] cloNIDine HCL [Catapres] 0.3 mg PO BID 12/26/18 [History] Mirabegron [Myrbetriq] 50 mg PO DAILY 08/07/20 [History] Potassium Chloride ER [K-Dur 20] 20 meq PO DAILY 30 Days #30 tab 08/16/21 [Rx] traZODone HCL [Desyrel] 50 mg PO HS PRN 08/21/21 [History] Furosemide [Lasix] 20 mg PO DAILY 10/18/21 [History] Albuterol Inhaler [Ventolin Hfa Inhaler] 2 puff INHALATION RT-Q6H PRN 03/01/22 [History] Nitroglycerin Sl Tabs [Nitrostat] 0.4 mg SUBLINGUAL Q5M PRN 03/01/22 [History] amLODIPine [Norvasc] 10 mg PO DAILY 03/01/22 [History] Docusate [Colace] 100 mg PO BID 05/13/22 [History] LORazepam [Ativan] 1 mg PO TID PRN 05/13/22 [History] Multivit/Folic Acid/Vit K1 [One-A-Day Women's 50 Plus Tab] 1 tab PO DAILY 05/13/22 [History] Valsartan [Diovan] 160 mg PO HS 05/13/22 [History] traMADol HCl [Ultram] 50 mg PO Q6HR PRN 08/20/22 [History] Follow up Appointment(s)/Referral(s): Uri Chaudhary MD [Primary Care Provider] - 1 Week Discharge Disposition: HOME SELF-CARE
[2022-08-22 10:55] LABS: HCT 29.8 % (37.2-46.3); HGB 9.2 g/dL (12.0-15.0); MCH 27.7 pg (27.0-32.0); MCHC 30.9 g/dL (32.0-37.0); MCV 89.8 fL (80.0-97.0); Mean Platelet Volume 9.5 fL (9.5-12.2); NRBC Per 100 WBC 0 /100 WBCS (0.0-0.0); Platelet Count 435 X 10*3/uL (140-440); RBC 3.32 X 10*6/uL (4.10-5.20); RDW 16.8 % (11.5-14.5); WBC 8.98 X 10*3/uL (4.50-10.00)
[2022-08-22 14:51] VITALS: BP 151/64; PULSE 74; RESP 16; TEMP 97.9
== END 2022-08-22 15:42 | disposition home or self-care (01) ==
LOC: EC 21:01 → 4SSUR 08-20 00:11
PROVIDERS: ADMIT Family Medicine; ATTEND Family Medicine
DX: R53.1 Weakness (principal); G93.40 Encephalopathy, unspecified; D64.9 Anemia, unspecified; K59.00 Constipation, unspecified; I25.10 Atherosclerotic heart disease of native coronary artery without angina pectoris; M51.36 Other intervertebral disc degeneration, lumbar region; K21.9 Gastro-esophageal reflux disease without esophagitis; E78.5 Hyperlipidemia, unspecified; I10 Essential (primary) hypertension; F41.9 Anxiety disorder, unspecified; I25.2 Old myocardial infarction; M16.0 Bilateral primary osteoarthritis of hip; M47.819 Spondylosis without myelopathy or radiculopathy, site unspecified; Z90.49 Acquired absence of other specified parts of digestive tract; Z90.710 Acquired absence of both cervix and uterus; Z98.1 Arthrodesis status; Z98.42 Cataract extraction status, left eye; Z87.440 Personal history of urinary (tract) infections; Z79.899 Other long term (current) drug therapy; Z88.5 Allergy status to narcotic agent; Z86.73 Personal history of transient ischemic attack (TIA), and cerebral infarction without residual deficits; Z98.41 Cataract extraction status, right eye; Z96.1 Presence of intraocular lens; Z63.4 Disappearance and death of family member; Z20.822 Contact with and (suspected) exposure to COVID-19; Z91.89 Other specified personal risk factors, not elsewhere classified
CPT/HCPCS: 96365 ×2; 96366 ×3; 96375 ×2; 99285; 93005; 97116; 97530; 97162; 97535 ×2; 97166; 83880; 80053; 80048; 83605; 83735; 84484; 85025 ×2; 85027; 85610; 85730; 81001; 87040; 87635 ×2; 71046; 74018; 70450; G0378 ×3; J2405; J0456; J0696 ×3

== ENCOUNTER 2022-09-11 20:19 | Observation (INO) | payer MEDICARE ==
[2022-09-11] MEDS ORDERED: SODIUM CHLORIDE 0.9% 1,000 ML IV STA (22:39)
[2022-09-11] MEDS ORDERED: ONDANSETRON 4 MG/2 ML VIAL IVP STA (22:39)
[2022-09-11 22:50] LABS: Anisocytosis Slight; Basophils % (A) 0 %; Eosinophils # (A) 0.1 k/uL (0-0.7); Eosinophils % (A) 1 %; Lymphocytes # (A) 1.2 k/uL (1.0-4.8); Lymphocytes % (A) 7 %; MCH 28.8 pg (25.0-35.0); MCV 89.9 fL (80.0-100.0); Mean Platelet Volume 7.7; Monocytes # (A) 0.6 k/uL (0-1.0); Monocytes % (A) 3 %; Neutrophils # (A) 15.3 k/uL (1.3-7.7); Neutrophils % (A) 89 %; Platelet Count 559 k/uL (150-450); RBC 4.23 m/uL (3.80-5.40); RDW 16.5 % (11.5-15.5); WBC 17.3 k/uL (3.8-10.6)
[2022-09-11 22:54] LABS: HGB 12.2 gm/dL (11.4-16.0)
[2022-09-11 22:57] LABS: ALT 17 U/L (4-34); AST 27 U/L (14-36); African American GFR (CKD) 57 (>60 ml/min/1.73 sqM); Albumin 3.4 g/dL (3.5-5.0); Alkaline Phosphatase 117 U/L (38-126); Anion Gap 11 mmol/L; Blood Urea Nitrogen 14 mg/dL (7-17); Calcium 9.4 mg/dL (8.4-10.2); Carbon Dioxide 27 mmol/L (22-30); Chloride 97 mmol/L (98-107); Glucose 137 mg/dL (74-99); Lipase 78 U/L (23-300); Non-African American GFR(CKD) 49 (>60 ml/min/1.73 sqM); Sodium 135 mmol/L (137-145); Total Bilirubin 0.4 mg/dL (0.2-1.3); Total Protein 7.4 g/dL (6.3-8.2)
--- NOTE | 2022-09-11 23:11 | XR ---
EXAMINATION TYPE: XR KUB DATE OF EXAM: 09/11/2022 10:58 PM INDICATION: Patient age:Female; 89 years old; Reason for study: pain; COMPARISON: 08/19/2022 TECHNIQUE: One radiographic view of the abdomen was obtained. FINDINGS: The bowel gas pattern is nonspecific without dilated loops of small or large bowel. There i s no evidence for organomegaly or pneumoperitoneum. The osseous structures are intact. No abnormal calcifications are present. Fecal material and gas are demonstrated throughout the colon and rectum. Atherosclerosis of the arterial vasculature. Multilevel disc degeneration spine. Right upper quadran t surgical clip. IMPRESSION: Nonspecific bowel gas pattern without radiographic evidence for acute process.
--- NOTE | 2022-09-11 23:12 | XR ---
EXAMINATION TYPE: XR chest 2V DATE OF EXAM: 09/11/2022 10:55 PM COMPARISON: Chest radiographs from 08/19/2022, CT 05/19/2022 TECHNIQUE: XR chest 2V Frontal and lateral views of the chest. CLINICAL INDICATION:Female, 89 years old with history of Cough/pain; FINDINGS: Lungs/Pleura: Similar multifocal airspace opacities. No evidence of pneumothorax or pleural effusion. Pulmonary vascularity: Unremarkable. Heart/mediastinum: Cardiomediastinal silhouette is unremarkable. Musculoskeletal: No acute osseous pathology. IMPRESSION: Similar multifocal airspace opacities dating back to CT abdomen 05/19/2022
[2022-09-11] MEDS ORDERED: cloNIDine HCL 0.1 MG TAB PO STA (23:54)
--- NOTE | 2022-09-12 00:24 | ED ---
General Adult HPI - General Chief complaint: Nausea/Vomiting/Diarrhea Stated complaint: vomiting,dehydration Time Seen by Provider: 09/11/22 22:05 Source: patient, family Mode of arrival: wheelchair Limitations: no limitations - History of Present Illness Initial comments: 89-year-old female with past medical history of hypertension, hyperlipidemia who presents to the emergency department with nausea, vomiting and inability to hold down anything to eat for the past 3 days. Daughters at bedside and provides the history. States that her mother has been significantly declining over the past couple of days. She has not been able to hold down any food or drink. She denies having any abdominal pain. She has not been taking her medications as she cannot stomach them. No fevers. Decreased urine output. No chest pain or shortness of breath. No sick contacts. No other alleviating, precipitating or modifying factors - Related Data Home Medications Medication Instructions Recorded Confirmed Carvedilol 25 mg PO BID 12/18/13 09/11/22 Ezetimibe [Zetia] 10 mg PO HS 12/26/18 09/11/22 Simvastatin [Zocor] 20 mg PO HS 12/26/18 09/11/22 cloNIDine HCL [Catapres] 0.3 mg PO BID 12/26/18 09/11/22 Mirabegron [Myrbetriq] 50 mg PO DAILY 08/07/20 09/11/22 traZODone HCL [Desyrel] 50 mg PO HS PRN 08/21/21 09/11/22 Furosemide [Lasix] 20 mg PO DAILY 10/18/21 09/11/22 Albuterol Inhaler [Ventolin Hfa 2 puff INHALATION RT-Q6H PRN 03/01/22 09/11/22 Inhaler] Nitroglycerin Sl Tabs [Nitrostat] 0.4 mg SUBLINGUAL Q5M PRN 03/01/22 09/11/22 amLODIPine [Norvasc] 10 mg PO DAILY 03/01/22 09/11/22 Docusate [Colace] 100 mg PO BID 05/13/22 09/11/22 LORazepam [Ativan] 1 mg PO TID PRN 05/13/22 09/11/22 Multivit/Folic Acid/Vit K1 1 tab PO DAILY 05/13/22 09/11/22 [One-A-Day Women's 50 Plus Tab] Valsartan [Diovan] 160 mg PO HS 05/13/22 09/11/22 traMADol HCl [Ultram] 50 mg PO Q6HR PRN 08/20/22 09/11/22 Previous Rx's Medication Instructions Recorded Potassium Chloride ER [K-Dur 20] 20 meq PO DAILY 30 Days #30 tab 08/16/21 Allergies Allergy/AdvReac Type Severity Reaction Status Date / Time oxycodone [From Percocet] Allergy Unknown Verified 09/11/22 22:48 codeine AdvReac Nausea & Verified 09/11/22 22:48 Vomiting meperidine HCl [From Demerol] AdvReac Nausea & Verified 09/11/22 22:48 Vomiting morphine AdvReac Nausea & Verified 09/11/22 22:48 Vomiting Review of Systems ROS Statement: Those systems with pertinent positive or pertinent negative responses have been documented in the HPI. ROS Other: All systems not noted in ROS Statement are negative. Past Medical History Past Medical History: Chest Pain / Angina, CVA/TIA, GERD/Reflux, Hyperlipidemia, Hypertension, Myocardial Infarction ([place]), Pneumonia, Syncope Additional Past Medical History / Comment(s): Past syncopal episodes, TIAs, UTIs, DJD spin, chronic back pain, arthritis hips and back, diverticular disease.urinary incontinence- wears briefs Last Myocardial Infarction Date:: 11/16/2010 History of Any Multi-Drug Resistant Organisms: None Reported Past Surgical History: Adenoidectomy, Appendectomy, Back Surgery, Cholec ystectomy, Heart Catheterization, Hysterectomy, Tonsillectomy Additional Past Surgical History / Comment(s): cardiac caths in 2010 and 2013, back fusion/discectomy, colonoscopy, bilateral cataract removal with lens implants, Past Anesthesia/Blood Transfusion Reactions: Postoperative Nausea & Vomiting (PONV) Past Psychological History: Anxiety Smoking Status: Former smoker Past Alcohol Use History: None Reported Past Drug Use History: None Reported - Past Family History Father Additional Family Medical History / Comment(s): Father at the age of 57yrs with "heart problems". Mother Additional Family Medical History / Comment(s): Mother had an enlarged heart. She at the age of 79yrs. General Exam Limitations: no limitations General appearance: alert, in no apparent distress Head exam: Present: atraumatic, normocephalic, normal inspection Eye exam: Present: normal appearance, PERRL, EOMI. Absent: scleral icterus, conjunctival injection, periorbital swelling ENT exam: Present: normal exam, mucous membranes moist Neck exam: Present: normal inspection. Absent: tenderness, meningismus, lymphadenopathy Respiratory exam: Present: normal lung sounds bilaterally. Absent: respiratory distress, wheezes, rales, rhonchi, stridor Cardiovascular Exam: Present: normal rhythm, tachycardia, normal heart sounds. Absent: systolic murmur, diastolic murmur, rubs, gallop, clicks GI/Abdominal exam: Present: soft, normal bowel sounds. Absent: distended, tenderness, guarding, rebound, rigid Extremities exam: Present: normal inspection, full ROM, normal capillary refill. Absent: tenderness, pedal edema, joint swelling, calf tenderness Back exam: Present: normal inspection Neurological exam: Present: alert, oriented X3, CN II-XII intact Psychiatric exam: Present: normal affect, normal mood Skin exam: Present: warm, dry, intact, normal color. Absent: rash Course Vital Signs 09/11/22 09/11/22 09/11/22 20:30 22:51 23:17 Temperature 97.8 F Pulse Rate 102 H 95 Pulse Rate [ Pulse Oximetery ] Respiratory 20 16 Rate Blood Pressure 184/80 163/105 200/111 Blood Pressure [Left Arm Supine] Blood Pressure [Right Arm] O2 Sat by Pulse 96 95 Oximetry 09/12/22 09/12/22 09/12/22 00:33 03:07 05:37 Temperature Pulse Rate 100 74 83 Pulse Rate [ Pulse Oximetery ] Respiratory 16 15 15 Rate Blood Pressure 148/69 140/67 Blood Pressure [Left Arm Supine] Blood Pressure [Right Arm] O2 Sat by Pulse 95 98 99 Oximetry 09/12/22 09/12/22 06:25 07:40 Temperature 97.5 F L Pulse Rate 68 Pulse Rate [ 86 Pulse Oximetery ] Respiratory 17 17 Rate Blood Pressure 160/68 Blood Pressure 203/80 [Left Arm Supine] Blood Pressure 192/75 [Right Arm] O2 Sat by Pulse 99 98 Oximetry Medical Decision Making - Medical Decision Making Was pt. sent in by a medical professional or institution (, PA, BLOCK MACHINE OPERATOR, urgent care, hospital, or [facility]...) When possible be specific @ -no Did you speak to anyone other than the patient for history (EMS, parent, family, police, friend...)? What history was obtained from this source @ -daughter provides history Did you review nursing and triage notes (agree or disagree)? Why? @ -I reviewed and agree with nursing and triage notes Were old charts reviewed (outside hosp., previous admission, EMS record, old EKG, old radiological studies, urgent care reports/EKG's, [facility] records)? Report findings @ -old charts were reviewed - most recent discharge summary - hospitalized for same complain Differential Diagnosis (chest pain, altered mental status, abdominal pain women, abdominal pain men, vaginal bleeding, weakness, fever, dyspnea, syncope, headache, dizziness, GI bleed, back pain, seizure, CVA, palpatations, mental health, musculoskeletal)? @ -cva, sepsis, pneumonia, covid, influenza, gastritis EKG interpreted by me (3pts min.). @ -Yes and demonstrates sinus rhythm with a rate of 78. UT interval 164. She has a 5. QTC of 402. No acute ST segment elevations or depressions Repeat at 00 48 demonstrates sinus rhythm with a rate of 96. UT 171. QRS 89. QTC of 406. No ST segment elevations or depressions X-rays interpreted by me (1pt min.). @ -yes, no acute process CT interpreted by me (1pt min.). @ -not done U/S interpreted by me (1pt. min.). @ -None done What testing was considered but not performed or refused? (CT, X-rays, U/S, labs)? Why? @ -None What meds were considered but not given or refused? Why? @ -None Did you discuss the management of the patient with other professionals (professionals i.e. , PA, BLOCK MACHINE OPERATOR, lab, RT, psych nurse, social work supervisor, manufacturing design engineer, teacher, aoc plans intelligence officer chief, lining caser)? Give summary @ -yes, dr villagran for admission Was smoking cessation discussed for >3mins.? @ -No Was critical care preformed (if so, how long)? @ -No Were there social determinants of health that impacted care today? How? (Homelessness, low income, unemployed, alcoholism, drug addiction, transportation, low edu. Level, literacy, decrease access to med. care, usp, rehab)? @ -no Was there de-escalation of care discussed even if they declined (Discuss DNR or withdrawal of care, Hospice)? DNR status @ -No What co-morbidities impacted this encounter? (DM, HTN, Smoking, COPD, CAD, Cancer, CVA, ARF, Chemo, Hep., AIDS, mental health diagnosis, sleep apnea, morbid obesity)? @ -htn, hld Was patient admitted / discharged? Hospital course, mention meds given and route, prescriptions, significant lab abnormalities, going to OR and other pertinent info. @ -Upon arrival patient was placed into room 1. There are history and physical exam was performed. Patient is hypoxic with options saturations 88% and therefore she is placed on 2 L. 12-lead EKG is performed. Laboratory studies are conducted and reviewed. White count 17.3. Rare bacteria in the urine. Viral swab is negative. Chest x-ray demonstrates no changes. KUB demonstrates no obstructive process. She was given a liter bolus of normal saline followed by 75 mL/h. He was given 4 mg of Zofran. Discussed the results of the laboratory testing with the patient. Due to her hypoxia and accelerated hypertension, patient will be hospitalized. Spoke with Dr. Villagran who accepted the patient Undiagnosed new problem with uncertain prognosis? @ -yes Drug Therapy requiring intensive monitoring for toxicity (Heparin, Nitro, Insulin, Cardizem)? @ -No Were any procedures done? @ -No Diagnosis/symptom? @ -acute resp insuff, acute nausea and vomiting, tachycardia, accelerated htn Acute, or Chronic, or Acute on Chronic? @ -acute Uncomplicated (without systemic symptoms) or Complicated (systemic symptoms)? @ -complicated Side effects of treatment? @ -allergic reaction Exacerbation, Progression, or Severe Exacerbation? @ -No Poses a threat to life or bodily function? How? (Chest pain, [place], [place], pneumonia, PE, COPD, DKA, ARF, appy, cholecystitis, CVA, Diverticulitis, Homicidal, Suicidal, threat to staff... and all critical care pts) @ -no - Lab Data Result diagrams: 09/13/22 04:50 09/13/22 04:50 Lab Results 09/11/22 09/11/22 09/11/22 Range/Units 22:19 22:19 22:19 WBC 17.3 H (3.8-10.6) k/uL RBC 4.23 (3.80-5.40) m/uL Hgb 12.2 D (11.4-16.0) gm/dL Hct 38.0 (34.0-46.0) % MCV 89.9 (80.0-100.0) fL MCH 28.8 (25.0-35.0) pg MCHC 32.0 (31.0-37.0) g/dL RDW 16.5 H (11.5-15.5) % Plt Count 559 H (150-450) k/uL MPV 7.7 Neutrophils % 89 % Lymphocytes % 7 % Monocytes % 3 % Eosinophils % 1 % Basophils % 0 % Neutrophils # 15.3 H (1.3-7.7) k/uL Lymphocytes # 1.2 (1.0-4.8) k/uL Monocytes # 0.6 (0-1.0) k/uL Eosinophils # 0.1 (0-0.7) k/uL Basophils # 0.0 (0-0.2) k/uL Anisocytosis Slight Sodium 135 L (137-145) mmol/L Potassium 4.0 (3.5-5.1) mmol/L Chloride 97 L (98-107) mmol/L Carbon Dioxide 27 (22-30) mmol/L Anion Gap 11 mmol/L BUN 14 (7-17) mg/dL Creatinine 1.02 (0.52-1.04) mg/dL Est GFR (CKD-EPI)AfAm 57 (>60 ml/min/1.73 sqM) Est GFR (CKD-EPI)NonAf 49 (>60 ml/min/1.73 sqM) Glucose 137 H (74-99) mg/dL Plasma Lactic Acid Romeo 1.6 (0.7-2.0) mmol/L Calcium 9.4 (8.4-10.2) mg/dL Total Bilirubin 0.4 (0.2-1.3) mg/dL AST 27 (14-36) U/L ALT 17 (4-34) U/L Alkaline Phosphatase 117 (38-126) U/L Total Protein 7.4 (6.3-8.2) g/dL Albumin 3.4 L (3.5-5.0) g/dL Lipase 78 (23-300) U/L Urine Color Urine Appearance (Clear) Urine pH (5.0-8.0) Ur Specific Titus (1.001-1.035) Urine Protein (Negative) Urine Glucose (UA) (Negative) Urine Ketones (Negative) Urine Blood (Negative) Urine Nitrite (Negative) Urine Bilirubin (Negative) Urine Urobilinogen (<2.0) mg/dL Ur Leukocyte Esterase (Negative) Urine RBC (0-5) /hpf Urine WBC (0-5) /hpf Urine Bacteria (None) /hpf Hyaline Casts (0-2) /lpf Urine Mucus (None) /hpf 09/12/22 Range/Units 00:15 WBC (3.8-10.6) k/uL RBC (3.80-5.40) m/uL Hgb (11.4-16.0) gm/dL Hct (34.0-46.0) % MCV (80.0-100.0) fL MCH (25.0-35.0) pg MCHC (31.0-37.0) g/dL RDW (11.5-15.5) % Plt Count (150-450) k/uL MPV Neutrophils % % Lymphocytes % % Monocytes % % Eosinophils % % Basophils % % Neutrophils # (1.3-7.7) k/uL Lymphocytes # (1.0-4.8) k/uL Monocytes # (0-1.0) k/uL Eosinophils # (0-0.7) k/uL Basophils # (0-0.2) k/uL Anisocytosis Sodium (137-145) mmol/L Potassium (3.5-5.1) mmol/L Chloride (98-107) mmol/L Carbon Dioxide (22-30) mmol/L Anion Gap mmol/L BUN (7-17) mg/dL Creatinine (0.52-1.04) mg/dL Est GFR (CKD-EPI)AfAm (>60 ml/min/1.73 sqM) Est GFR (CKD-EPI)NonAf (>60 ml/min/1.73 sqM) Glucose (74-99) mg/dL Plasma Lactic Acid Romeo (0.7-2.0) mmol/L Calcium (8.4-10.2) mg/dL Total Bilirubin (0.2-1.3) mg/dL AST (14-36) U/L ALT (4-34) U/L Alkaline Phosphatase (38-126) U/L Total Protein (6.3-8.2) g/dL Albumin (3.5-5.0) g/dL Lipase (23-300) U/L Urine Color Light Yellow Urine Appearance Clear (Clear) Urine pH 7.0 (5.0-8.0) Ur Specific [place]itus 1.017 (1.001-1.035) Urine Protein 4+ H (Negative) Urine Glucose (UA) Trace H (Negative) Urine Ketones Trace H (Negative) Urine Blood Trace H (Negative) Urine Nitrite Negative (Negative) Urine Bilirubin Negative (Negative) Urine Urobilinogen <2.0 (<2.0) mg/dL Ur Leukocyte Esterase Negative (Negative) Urine RBC <1 (0-5) /hpf Urine WBC 2 (0-5) /hpf Urine Bacteria Rare H (None) /hpf Hyaline Casts 3 H (0-2) /lpf Urine Mucus Rare H (None) /hpf Disposition Clinical Impression: Hypoxia, Nausea and vomiting, Accelerated hypertension, Leukocytosis Disposition: ADMITTED IP TO THIS [facility] Condition: Stable Is patient prescribed a controlled substance at d/c from ED?: No Time of Disposition: 01:25 Decision to Admit Reason: Admit from EC Decision Date: 09/12/22 Decision Time: 01:25
[2022-09-12 00:58] LABS: Appearance,Urine Clear (Clear); Bacteria,Urine Rare /hpf; Bilirubin,Urine Negative (Negative); Blood,Urine Trace (Negative); Color,Urine Light Yellow; Glucose,Urine (UA) Trace (Negative); Hyaline Casts,Urine 3 /lpf (0-2); Ketones,Urine Trace (Negative); Leukocyte Esterase,Urine Negative (Negative); Mucus,Urine Rare /hpf; Nitrite,Urine Negative (Negative); Protein,Urine 4+ (Negative); RBC,Urine <1 /hpf (0-5); Specific Gravity,Urine 1.017 (1.001-1.035); Urobilinogen,Urine <2.0 mg/dL (<2.0); WBC,Urine 2 /hpf (0-5)
[2022-09-12] MEDS ORDERED: NALOXONE 0.4 MG/ML 1 ML VIAL IV PRN (01:25)
[2022-09-12] MEDS ORDERED: traMADol 50 MG TAB PO PRN (01:28)
[2022-09-12] MEDS ORDERED: LORazepam 1 MG TAB PO PRN (01:28)
[2022-09-12] MEDS ORDERED: traZODone HCL 50 MG TAB PO PRN (01:28)
[2022-09-12] MEDS ORDERED: ALBUTEROL NEBULIZED 2.5 MG/3 ML INHALATION PRN (01:28)
[2022-09-12] MEDS ORDERED: ONDANSETRON 4 MG/2 ML VIAL IVP PRN (01:32)
[2022-09-12] MEDS: NON FORMULARY DRUG (Mirabegron [Myrbetriq] 50 MG Tab.Er.24h) PO SCH (07:46)
[2022-09-12] MEDS: DOCUSATE 100 MG CAP PO SCH ×2 (07:52→20:51)
[2022-09-12] MEDS: MULTIVITAMINS, THERA 1 EACH TAB PO SCH (07:52)
[2022-09-12] MEDS: amLODIPine 10 MG TAB PO SCH (07:53)
[2022-09-12] MEDS: carvediloL 12.5 MG TAB PO SCH ×2 (07:53→18:03)
[2022-09-12] MEDS: cloNIDine HCL 0.1 MG TAB PO SCH ×2 (08:45→20:51)
[2022-09-12] MEDS: SODIUM CHLORIDE 0.9% 1,000 ML IV SCH ×2 (08:46→20:50)
--- NOTE | 2022-09-12 09:12 | P.HPIM ---
History of Present Illness H&P Date: 09/12/22 Chief Complaint: Nausea This is a 89-year-old female who presented to the emergency department with complaints of nausea, vomiting and inability to eat anything over the last 3 days. Patient reports her appetite has decreased, she just hasn't felt like eating anything. Her daughters became concerned and patient presented to the emergency department. She currently denies any abdominal pain or nausea and vomiting. Family has stated patient wasn't taking her medications, but nursing staff this morning stating patient medications with no issues. Patient did have breakfast tray in front of her on exam, and was about to eat. Further medical history as noted below. Review of Systems Constitutional: Denies chills, Denies fever Cardiovascular: Denies chest pain, Denies dyspnea on exertion Respiratory: Denies cough, Denies dyspnea Gastrointestinal: Reports nausea, Denies abdominal pain, Denies vomiting Neurological: Denies headaches, Denies weakness Past Medical History Past Medical History: Chest Pain / Angina, CVA/TIA, GERD/Reflux, Hyperlipidemia, Hypertension, Myocardial Infarction ([place]), Pneumonia, Syncope Additional Past Medical History / Comment(s): Past syncopal episodes, TIAs, UTIs, DJD spin, chronic back pain, arthritis hips and back, diverticular disease.urinary incontinence- wears briefs Last Myocardial Infarction Date:: 11/16/2010 History of Any Multi-Drug Resistant Organisms: None Reported Past Surgical History: Adenoidectomy, Appendectomy, Back Surgery, Cholecy stectomy, Heart Catheterization, Hysterectomy, Tonsillectomy Additional Past Surgical History / Comment(s): cardiac caths in 2010 and 2013, back fusion/discectomy, colonoscopy, bilateral cataract removal with lens implants, Past Anesthesia/Blood Transfusion Reactions: Postoperative Nausea & Vomiting (PONV) Past Psychological History: Anxiety Smoking Status: Former smoker Past Alcohol Use History: None Reported Past Drug Use History: None Reported - Past Family History Father Additional Family Medical History / Comment(s): Father at the age of 57yrs with "heart problems". Mother Additional Family Medical History / Comment(s): Mother had an enlarged heart. She at the age of 79yrs. Medications and Allergies Home Medications Medication Instructions Recorded Confirmed Type Carvedilol 25 mg PO BID 12/18/13 09/11/22 History Ezetimibe [Zetia] 10 mg PO HS 12/26/18 09/11/22 History Simvastatin [Zocor] 20 mg PO HS 12/26/18 09/11/22 History cloNIDine HCL [Catapres] 0.3 mg PO BID 12/26/18 09/11/22 History Mirabegron [Myrbetriq] 50 mg PO DAILY 08/07/20 09/11/22 History Potassium Chloride ER [K-Dur 20] 20 meq PO DAILY 30 Days #30 tab 08/16/21 09/11/22 Rx traZODone HCL [Desyrel] 50 mg PO HS PRN 08/21/21 09/11/22 History Furosemide [Lasix] 20 mg PO DAILY 10/18/21 09/11/22 History Albuterol Inhaler [Ventolin Hfa 2 puff INHALATION RT-Q6H PRN 03/01/22 09/11/22 History Inhaler] Nitroglycerin Sl Tabs [Nitrostat] 0.4 mg SUBLINGUAL Q5M PRN 03/01/22 09/11/22 History amLODIPine [Norvasc] 10 mg PO DAILY 03/01/22 09/11/22 History Docusate [Colace] 100 mg PO BID 05/13/22 09/11/22 History LORazepam [Ativan] 1 mg PO TID PRN 05/13/22 09/11/22 History Multivit/Folic Acid/Vit K1 1 tab PO DAILY 05/13/22 09/11/22 History [One-A-Day Women's 50 Plus Tab] Valsartan [Diovan] 160 mg PO HS 05/13/22 09/11/22 History traMADol HCl [Ultram] 50 mg PO Q6HR PRN 08/20/22 09/11/22 History Allergies Allergy/AdvReac Type Severity Reaction Status Date / Time oxycodone [From Percocet] Allergy Unknown Verified 09/11/22 22:48 codeine AdvReac Nausea & Verified 09/11/22 22:48 Vomiting meperidine HCl [From Demerol] AdvReac Nausea & Verified 09/11/22 22:48 Vomiting morphine AdvReac Nausea & Verified 09/11/22 22:48 Vomiting Physical Exam Vitals: Vital Signs Temp Pulse Pulse Resp BP BP BP 09/12/22 07:40 97.5 F L 86 17 203/80 192/75 09/12/22 06:25 68 17 160/68 09/12/22 05:37 83 15 140/67 09/12/22 03:07 74 15 148/69 09/12/22 00:33 100 16 09/11/22 23:17 200/111 09/11/22 22:51 95 16 163/105 09/11/22 20:30 97.8 F 102 H 20 184/80 Pulse Ox 09/12/22 07:40 98 09/12/22 06:25 99 09/12/22 05:37 99 09/12/22 03:07 98 09/12/22 00:33 95 09/11/22 23:17 09/11/22 22:51 95 09/11/22 20:30 96 Intake and Output 09/11/22 09/12/22 09/12/22 22:59 06:59 14:59 Other: # Voids 0 Weight 44.452 kg - Constitutional General appearance: cooperative, no acute distress, thin - EENT Eyes: PERRLA - Neck Neck: no lymphadenopathy, normal ROM, no rigidity - Respiratory Respiratory: bilateral: CTA - Cardiovascular Rhythm: regular Heart sounds: normal: S1, S2 - Gastrointestinal General gastrointestinal: soft, no tenderness - Integumentary Integumentary: normal, normal turgor - Musculoskeletal Musculoskeletal: generalized weakness - Psychiatric Psychiatric: A&O x's 3, appropriate affect, intact judgment & insight Results CBC & Chem 7: 09/11/22 22:19 09/11/22 22:19 Labs: Abnormal Lab Results - Last 24 Hours (Table) 09/11/22 09/11/22 09/12/22 Range/Units 22:19 22:19 00:15 WBC 17.3 H (3.8-10.6) k/uL RDW 16.5 H (11.5-15.5) % Plt Count 559 H (150-450) k/uL Neutrophils # 15.3 H (1.3-7.7) k/uL Sodium 135 L (137-145) mmol/L Chloride 97 L (98-107) mmol/L Glucose 137 H (74-99) mg/dL Albumin 3.4 L (3.5-5.0) g/dL Urine Protein 4+ H (Negative) Urine Glucose (UA) Trace H (Negative) Urine Ketones Trace H (Negative) Urine Blood Trace H (Negative) Urine Bacteria Rare H (None) /hpf Hyaline Casts 3 H (0-2) /lpf Urine Mucus Rare H (None) /hpf Assessment and Plan (1) Leukocytosis Current Visit: Yes Status: Acute Code(s): D72.829 - ELEVATED WHITE BLOOD CELL COUNT, UNSPECIFIED SNOMED Code(s): 574749836 (2) Nausea and vomiting Current Visit: Yes Status: Acute Code(s): R11.2 - NAUSEA WITH VOMITING, UNSPECIFIED SNOMED Code(s): 98187134 (3) Congestive heart failure Current Visit: No Status: Acute Code(s): I50.9 - HEART FAILURE, UNSPECIFIED SNOMED Code(s): 83666114 (4) GERD (gastroesophageal reflux disease) Current Visit: No Status: Acute Code(s): K21.9 - GASTRO-ESOPHAGEAL REFLUX DISEASE WITHOUT ESOPHAGITIS SNOMED Code(s): 083613199 (5) HTN (hypertension) Current Visit: No Status: Acute Code(s): I10 - ESSENTIAL (PRIMARY) HYPERTENSION SNOMED Code(s): 62640384 (6) Hyperlipidemia Current Visit: No Status: Acute Code(s): E78.5 - HYPERLIPIDEMIA, UNSPECIFIED SNOMED Code(s): 36700384 (7) Weakness Current Visit: No Status: Acute Code(s): R53.1 - WEAKNESS SNOMED Code(s): 00412485 Plan: Home medications reconciled. Encourage adequate oral intake. Possible discharge tomorrow morning if patient is able to tolerate food today. Patient seen and evaluated by nurse practitioner, physician in agreement with plan
[2022-09-12] MEDS ORDERED: EZETIMIBE 10 MG TAB PO SCH (21:00)
[2022-09-12] MEDS ORDERED: ATORVASTATIN 10 MG TAB PO SCH (21:00)
[2022-09-12] MEDS ORDERED: VALSARTAN 160 MG TAB PO SCH (21:00)
[2022-09-13] MEDS: SODIUM CHLORIDE 0.9% 1,000 ML IV SCH (04:16)
[2022-09-13] MEDS: carvediloL 12.5 MG TAB PO SCH (06:21)
[2022-09-13 07:37] VITALS: BP 153/67; PULSE 67; RESP 16; TEMP 98.1
--- NOTE | 2022-09-13 08:11 | P.DS ---
Providers Date of admission: 09/12/22 01:25 Attending physician: Uri Chaudhary Primary care physician: Uri Chaudhary Hospital Course: This discharge summary 89-year-old white female admitted for uncontrolled hypertension due to nausea and vomiting with gastritis. The patient was stabilized with appropriate IV fluid and appropriate medication for nausea. The patient started tolerating diet and was able to take medication. Blood pressure is nominal and baseline for her. She is discharged in guarded condition secondary to advancing age to follow-up with me in about a week. Patient Condition at Discharge: Stable Plan - Discharge Summary Discharge Rx Participant: No New Discharge Prescriptions: Continue Carvedilol 25 mg PO BID Simvastatin [Zocor] 20 mg PO HS cloNIDine HCL [Catapres] 0.3 mg PO BID Ezetimibe [Zetia] 10 mg PO HS Mirabegron [Myrbetriq] 50 mg PO DAILY traZODone HCL [Desyrel] 50 mg PO HS PRN PRN Reason: Insomnia Furosemide [Lasix] 20 mg PO DAILY LORazepam [Ativan] 1 mg PO TID PRN PRN Reason: Anxiety Potassium Chloride ER [K-Dur 20] 20 meq PO DAILY 30 Days #30 tab Nitroglycerin Sl Tabs [Nitrostat] 0.4 mg SUBLINGUAL Q5M PRN PRN Reason: Chest Pain Albuterol Inhaler [Ventolin Hfa Inhaler] 2 puff INHALATION RT-Q6H PRN PRN Reason: Shortness Of Breath amLODIPine [Norvasc] 10 mg PO DAILY Valsartan [Diovan] 160 mg PO HS Docusate [Colace] 100 mg PO BID Multivit/Folic Acid/Vit K1 [One-A-Day Women's 50 Plus Tab] 1 tab PO DAILY traMADol HCl [Ultram] 50 mg PO Q6HR PRN PRN Reason: Pain Discharge Medication List Carvedilol 25 mg PO BID 12/18/13 [History] Ezetimibe [Zetia] 10 mg PO HS 12/26/18 [History] Simvastatin [Zocor] 20 mg PO HS 12/26/18 [History] cloNIDine HCL [Catapres] 0.3 mg PO BID 12/26/18 [History] Mirabegron [Myrbetriq] 50 mg PO DAILY 08/07/20 [History] Potassium Chloride ER [K-Dur 20] 20 meq PO DAILY 30 Days #30 tab 08/16/21 [Rx] traZODone HCL [Desyrel] 50 mg PO HS PRN 08/21/21 [History] Furosemide [Lasix] 20 mg PO DAILY 10/18/21 [History] Albuterol Inhaler [Ventolin Hfa Inhaler] 2 puff INHALATION RT-Q6H PRN 03/01/22 [History] Nitroglycerin Sl Tabs [Nitrostat] 0.4 mg SUBLINGUAL Q5M PRN 03/01/22 [History] amLODIPine [Norvasc] 10 mg PO DAILY 03/01/22 [History] Docusate [Colace] 100 mg PO BID 05/13/22 [History] LORazepam [Ativan] 1 mg PO TID PRN 05/13/22 [History] Multivit/Folic Acid/Vit K1 [One-A-Day Women's 50 Plus Tab] 1 tab PO DAILY 05/13/22 [History] Valsartan [Diovan] 160 mg PO HS 05/13/22 [History] traMADol HCl [Ultram] 50 mg PO Q6HR PRN 08/20/22 [History] Follow up Appointment(s)/Referral(s): Uri Chaudhary MD [Primary Care Provider] - 1 Week Discharge Disposition: HOME SELF-CARE
[2022-09-13] MEDS: cloNIDine HCL 0.1 MG TAB PO SCH (08:43)
[2022-09-13] MEDS: MULTIVITAMINS, THERA 1 EACH TAB PO SCH (08:44)
[2022-09-13] MEDS: NON FORMULARY DRUG (Mirabegron [Myrbetriq] 50 MG Tab.Er.24h) PO SCH (08:44)
[2022-09-13] MEDS: amLODIPine 10 MG TAB PO SCH (08:44)
[2022-09-13] MEDS: DOCUSATE 100 MG CAP PO SCH (08:44)
[2022-09-13 09:28] LABS: Basophils # (A) 0.09 X 10*3/uL (0.00-0.10); Basophils % (A) 0.9 %; Eosinophils # (A) 0.23 X 10*3/uL (0.04-0.35); Eosinophils % (A) 2.4 %; HCT 25.3 % (37.2-46.3); HGB 7.6 d/dL (12.0-15.0); Lymphocytes # (A) 2.36 X 10*3/uL (0.90-5.00); Lymphocytes % (A) 24.3 %; MCH 27.7 pg (27.0-32.0); MCV 92.3 FL (80.0-97.0); Mean Platelet Volume 9.5 FL (9.5-12.2); Monocytes # (A) 1.22 X 10*3/uL (0.20-1.00); Monocytes % (A) 12.5 %; NRBC Per 100 WBC 0 X 10*3/uL (0.00-0.01); Neutrophils # (A) 5.79 X 10*3/uL (1.80-7.70); Neutrophils % (A) 59.5 %; Platelet Count 311 X 10*3/uL (140-440); RBC 2.74 X 10*6/uL (4.10-5.20); RDW 17.2 % (11.5-14.5); WBC 9.73 X 10*3/uL (4.50-10.00)
[2022-09-13 09:40] LABS: BUN/Creat Ratio 14.64 Ratio (12.00-20.00); Blood Urea Nitrogen 20.5 mg/dL (9.0-27.0); Calcium 8.2 mg/dL (8.7-10.3); Carbon Dioxide 25.8 mmol/L (21.6-31.8); Chloride 104 mmol/L (96-109); Glucose 85 mg/dL (70-110); Potassium 3.9 mmol/L (3.5-5.5); Sodium 137 mmol/L (135-145)
== END 2022-09-13 10:48 | disposition home or self-care (01) ==
LOC: EC 20:19 → 6NMEDSUR 09-12 01:25
PROVIDERS: ADMIT Family Medicine; ATTEND Family Medicine
DX: R11.2 Nausea with vomiting, unspecified (principal); I10 Essential (primary) hypertension; D72.829 Elevated white blood cell count, unspecified; E78.5 Hyperlipidemia, unspecified; R53.1 Weakness; I11.0 Hypertensive heart disease with heart failure; I50.9 Heart failure, unspecified; I25.2 Old myocardial infarction; Z20.822 Contact with and (suspected) exposure to COVID-19; Z86.73 Personal history of transient ischemic attack (TIA), and cerebral infarction without residual deficits; Z87.01 Personal history of pneumonia (recurrent); Z87.440 Personal history of urinary (tract) infections; G89.29 Other chronic pain; K21.9 Gastro-esophageal reflux disease without esophagitis; M54.9 Dorsalgia, unspecified; R32 Unspecified urinary incontinence; Z90.2 Acquired absence of lung [part of]; Z90.49 Acquired absence of other specified parts of digestive tract; Z90.710 Acquired absence of both cervix and uterus; Z98.1 Arthrodesis status; Z98.42 Cataract extraction status, left eye; Z98.41 Cataract extraction status, right eye; Z96.1 Presence of intraocular lens; Z98.890 Other specified postprocedural states; F41.9 Anxiety disorder, unspecified; Z87.891 Personal history of nicotine dependence; Z82.49 Family history of ischemic heart disease and other diseases of the circulatory system; Z79.899 Other long term (current) drug therapy
CPT/HCPCS: 96361; 96374; 99285; 36415; 80053; 80048; 83605; 83690; 85025 ×2; 81001; 87636; 71046; 74018; G0378 ×2; J2405; 93005